=== PATIENT | female | born 1960 ===

== ENCOUNTER 2020-04-20 14:46 | Emergency (ER) | payer MEDICARE ==
[2020-04-20] MEDS ORDERED: SODIUM CHLORIDE 0.9% 1000 ML 1,000 ML IV ONE (15:17)
[2020-04-20 16:09] LABS: Hemoglobin 12.1 gm/dl (10.1-14.3); Mean Corpuscular HGB Conc 31 % (30-34); Mean Corpuscular Volume 95 fl (79-97); Platelet Count 103 K/mm3 (140-440); Red Blood Count 4.12 M/mm3 (3.65-5.03); Red Cell Distribution Width 18.9 % (13.2-15.2)
--- NOTE | 2020-04-20 16:19 | Cat Scan Report ---
NONENHANCED CT SCAN OF THE HEAD: INDICATION / CLINICAL INFORMATION: 59 years Female; fall elderly head neck trauma. TECHNIQUE: Routine CT head without contrast. All CT scans at this location are performed using CT dos e reduction for ALARA by means of automated exposure control. COMPARISON: CT scan of the head from 04/06/2020 FINDINGS: BRAIN / INTRACRANIAL CONTENTS: No intracranial sequela from the trauma; focal scalp hematoma in the l eft frontal region; no air-fluid level in the visualized portions of the paranasal sinuses. No acute hemorrhage, mass effect, midline shift, hydrocephalus, or acute, large territorial infarct. Periventricular low attenuation areas due to chronic small vessel disease: Mild right perisylvian at rophy CRANIOCERVICAL JUNCTION: No significant abnormality. ORBITS: No significant abnormality of visualized orbits. SINUSES / MASTOIDS: No significant abnormality of the visualized paranasal sinuses or mastoid air lacie ls. 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
--- NOTE | 2020-04-20 16:25 | Cat Scan Report ---
. CT facial bones wo con INDICATION / CLINICAL INFORMATION: 59 years Female; fall left jaw bruising. TECHNIQUE: Thin cut axial images obtained. Sagittal and coronal reconstructions performed. All CT scans at this location are performed using CT dose reduction for ALARA by means of automated exposure control. COMPARISON: None available. FINDINGS: No signs of acute bony trauma appreciated. There is significant temporomandibular joint disease bilaterally, as evidenced of near complete aysha ening of the condylar head of the mandible along with irregularity along the mandibular fossa regions bilaterally-findings a left are greater than right. Orbits and surrounding soft tissues are grossly normal. There may be minimal subcutaneous swelling ar ound the body of the mandible on the left. The patient is edentulous. Atherosclerotic disease is seen in the anterior circulation. IMPRESSION: 1. No signs of acute bony facial trauma appreciated. Signer Name: Douglas Potts MD, III Signed: 04/20/2020 4:21 PM Workstation Name: [id number]
[2020-04-20 16:29] LABS: Alanine Aminotransferase 15 units/L (7-56); Albumin 1.9 g/dL (3.9-5); Blood Urea Nitrogen 11 mg/dL (7-17); Calcium 7.4 mg/dL (8.4-10.2); Hemolysis Index 12
[2020-04-20 16:40] LABS: BUN/Creatinine Ratio 28
[2020-04-20 16:54] LABS: Bilirubin,Urine NEG (Negative); Blood,Urine NEG (Negative); Color,Urine Yellow (Yellow); Mucus,Urine FEW /HPF; Protein,Urine <15 mg/dL mg/dL (Negative)
--- NOTE | 2020-04-20 16:58 | Cat Scan Report ---
CT cervical spine wo con INDICATION / CLINICAL INFORMATION: 59 years Female; fall neck bruising. TECHNIQUE: Axial CT images of the cervical spine were obtained. Sagittal and coronal reformatted images were pr oduced. All CT scans at this location are performed using CT dose reduction for ALARA by means of aut omated exposure control. COMPARISON: The study is compared to the previous CT of 12/12/2019. FINDINGS: POST-SURGICAL CHANGES: None. ALIGNMENT: There is mild exaggeration of the cervical lordosis as well as curvature of the cervical s pine, convex toward the left. However, there is no significant spondylolisthesis involving the cervic al spine. VERTEBRAE: There is diffuse osteopenia. The motion and beam hardening degrade the image quality. Mcwilliams radha, there is no clear CT evidence of interval developing acute fracture involving cervical spine. Th ere are continued degenerative endplate changes involving the visualized T2 and T3 vertebral bodies. INTRAVERTEBRAL DISCS: There is continued mild to moderate left neural foraminal narrowing at C3-4 and on the right at C4-5. There appears to be moderate foraminal narrowing bilaterally at C5-6. The spon dylosis at this level also appears to efface the ventral subarachnoid space. There is moderate left f oraminal narrowing at C6-7. PARASPINAL SOFT TISSUES: There are scattered small foci of air projected within the neck soft tissues with most apparent to correspond with the vessels and may be iatrogenic related to IV access; correl ation would be needed, particularly regarding penetrating trauma.. There is no evidence of pneumothor ax involving visualized lung apices. ADDITIONAL FINDINGS: None. IMPRESSION: 1. There is no clear CT evidence of developing acute fracture involving the cervical spine. 2. There are continued multilevel degenerative changes involving the cervical spine. 3. There are scattered small foci of air projected within the visualized neck soft tissues which appe ar to correspond with vessels and may be iatrogenic related to IV access; correlation would be needed . Signer Name: Buddy Leach MD Signed: 04/20/2020 4:54 PM Workstation Name: [id number]
--- NOTE | 2020-04-20 17:28 | Emergency Department Report ---
ED Fall HPI - General Chief Complaint: Fall Stated Complaint: FALL Time Seen by Provider: 04/20/20 15:10 Source: patient, EMS, RN notes reviewed Mode of arrival: Stretcher Limitations: Altered Mental Status - History of Present Illness Initial Comments: Mrs. Agarwal is a 59 yo female with hx of congestive heart failure, COPD, GERD, anxiety, psychosis, CKD, bronchitis who preesents from [place] after possible fall. Bruising seen at left jaw. Patient thinks she may have tripped over someone. She is bedbound. She has hx of confusion at bedside. She resides at [facility]. MD Complaint: fall -: unknown Fall From: other (unknown) When Fall Occurred: unsure Fall Witnessed: no Place Fall Occurred: retirement/SNF Loss of Consciousness: none Prolonged Down Time?: unclear Location: head Severity: mild Context: other (unknown) Associated Symptoms: headache, other (Mild headache frontal unknown onset) - Related Data Previous Rx's Medication Instructions Recorded Last Taken Type cephALEXin [Keflex] 500 mg PO Q8HR 7 Days #21 cap 04/20/20 Unknown Rx Allergies Allergy/AdvReac Type Severity Reaction Status Date / Time clopidogrel [From Plavix] Allergy Unknown Verified 04/20/20 14:51 hydromorphone [From Dilaudid] Allergy Unknown Verified 04/20/20 14:51 phenobarbital Allergy Unknown Verified 04/20/20 14:51 ED Review of Systems ROS: Stated complaint: FALL Other details as noted in HPI Comment: All other systems reviewed and negative Constitutional: denies: fever, malaise Respiratory: denies: cough, shortness of breath Gastrointestinal: denies: abdominal pain, nausea, vomiting Neurological: headache. denies: weakness, numbness, paresthesias ED Past Medical Hx - Past Medical History Previous Medical History?: Yes Hx Congestive Heart Failure: Yes Hx GERD: Yes Hx Renal Disease: Yes Hx Psychiatric Treatment: (anxiety, psychosis) Hx COPD: Yes Additional medical history: Angina Pectoris, Bronchitis, U.T.I - Medications Home Medications: Home Medications Medication Instructions Recorded Confirmed Last Taken Type cephALEXin [Keflex] 500 mg PO Q8HR 7 Days #21 cap 04/20/20 Unknown Rx ED Physical Exam - General Limitations: Altered Mental Status General appearance: alert, in no apparent distress - Head Head exam: Present: normocephalic, other (large bruise left lateral jaw, left ne ck) - Eye Eye exam: Present: normal appearance - ENT ENT exam: Present: mucous membranes moist - Neck Neck exam: Present: normal inspection, full ROM - Respiratory Respiratory exam: Present: normal lung sounds bilaterally. Absent: respiratory distress, wheezes, stridor - Cardiovascular Cardiovascular Exam: Present: regular rate, normal rhythm. Absent: systolic murmur, diastolic murmur, rubs, gallop - GI/Abdominal GI/Abdominal exam: Present: soft, normal bowel sounds. Absent: distended, tenderness, guarding, rebound - Extremities Exam Extremities exam: Present: normal inspection - Neurological Exam Neurological exam: Present: alert, other (oriented to name) - Psychiatric Psychiatric exam: Present: depressed, flat affect - Skin Skin exam: Present: warm, dry, intact, ecchymosis. Absent: rash ED Course Vital Signs 04/20/20 04/20/20 04/20/20 14:57 14:58 15:00 Temperature 97.6 F Pulse Rate 68 Respiratory 20 Rate Blood Pressure 85/44 Blood Pressure 84/37 [Right] O2 Sat by Pulse 97 98 Oximetry 04/20/20 04/20/20 04/20/20 15:16 15:30 15:42 Temperature Pulse Rate 65 63 Respiratory 18 18 18 Rate Blood Pressure 85/44 89/49 Blood Pressure [Right] O2 Sat by Pulse 98 98 Oximetry 04/20/20 04/20/20 04/20/20 16:02 16:16 16:30 Temperature Pulse Rate 64 66 65 Respiratory 20 18 18 Rate Blood Pressure 85/44 85/44 105/54 Blood Pressure [Right] O2 Sat by Pulse 99 100 Oximetry 04/20/20 04/20/20 16:46 17:00 Temperature Pulse Rate 64 65 Respiratory 16 17 Rate Blood Pressure 105/54 109/59 Blood Pressure [Right] O2 Sat by Pulse 98 98 Oximetry ED Medical Decision Making - Lab Data Result diagrams: 04/20/20 15:29 04/20/20 15:29 Laboratory Results - last 24 hr 04/20/20 04/20/20 04/20/20 15:29 15:29 16:19 WBC 5.8 RBC 4.12 Hgb 12.1 Hct 39.0 MCV 95 MCH 30 MCHC 31 RDW 18.9 H Plt Count 103 L Sodium 142 Potassium 4.0 Chloride 106.6 Carbon Dioxide 25 Anion Gap 14 BUN 11 Creatinine 0.4 L Estimated GFR > 60 BUN/Creatinine Ratio 28 Glucose 105 H Calcium 7.4 L Total Bilirubin 0.30 AST 14 ALT 15 Alkaline Phosphatase 78 Total Protein 4.2 L Albumin 1.9 L Albumin/Globulin Ratio 0.8 Urine Color Yellow Urine Turbidity Slightly-cloudy Urine pH 6.0 Ur Specific Gantt 1.013 Urine Protein <15 mg/dl Urine Glucose (UA) Neg Urine Ketones Neg Urine Blood Neg Urine Nitrite Neg Urine Bilirubin Neg Urine Urobilinogen 2.0 Ur Leukocyte Esterase Tr Urine WBC (Auto) 39.0 H Urine RBC (Auto) 2.0 U Epithel Cells (Auto) < 1.0 Urine Mucus Few - Radiology Data Radiology results: report reviewed CT head without contrast: No intracranial sequela from trauma, focal scalp hematoma in the left frontal region CT facial bones without contrast: No signs of acute bony facial trauma CT cervical spine: No acute fracture, multilevel degenerative changes seen on previous - Medical Decision Making 1. Fall head trauma: CT face/c-spine/head without severe traumatic injury, dx: Minor head trauma with scalp hematoma facial contusion 2. Patient presented with hypotension without signs of sepsis CBC within normal limits. Patient does have evidence of UTI. No signs of Sirs. I have prescribed cephalexin. Iatrogenic hypotension due to medication vs hypovolemia. After IV fluid therap an appropriate sized cuff, patient is now normotensive. Critical care attestation.: If time is entered above; I have spent that time in minutes in the direct care of this critically ill patient, excluding procedure time. ED Disposition Clinical Impression: Urinary tract infection, Fall, Minor head trauma, Facial contusion Disposition: [id number] ANOTHER TYPE HLTHCARE Is pt being admited?: No Does the pt Need Aspirin: No Condition: Stable Instructions: Urinary Tract Infection in Women (ED), Minor Head Injury (ED) Prescriptions: cephALEXin [Keflex] 500 mg PO Q8HR 7 Days #21 cap
[2020-04-20] MEDS ORDERED: cephALEXin 500 MG CAP PO ONE (17:38)
[2020-04-20 21:55] VITALS: BP 111/56
== END 2020-04-20 21:55 | disposition other institution (70) ==
LOC: ED 14:46
DX: S00.83XA Contusion of other part of head, initial encounter (principal); N39.0 Urinary tract infection, site not specified; R51 Headache; I50.9 Heart failure, unspecified; K21.9 Gastro-esophageal reflux disease without esophagitis; F41.9 Anxiety disorder, unspecified; J44.9 Chronic obstructive pulmonary disease, unspecified; Z79.899 Other long term (current) drug therapy; Z88.8 Allergy status to other drugs, medicaments and biological substances; W18.30XA Fall on same level, unspecified, initial encounter; Y93.89 Activity, other specified; Y92.89 Other specified places as the place of occurrence of the external cause; Y99.8 Other external cause status
CPT/HCPCS: 36415; 70450; 70486; 72125; 80053; 81001; 85027; 87076; 87086; 87186; 96360

== ENCOUNTER 2020-07-05 20:23 | Inpatient (IN) | payer OTHER, MEDICARE ==
[2020-07-05] MEDS ORDERED: KETAMINE 500 MG/5 ML VIAL MDV ONE (21:22)
[2020-07-05] MEDS ORDERED: ROCURONIUM 50 MG/5 ML INJ IV ONE ×2 (21:23→22:08)
[2020-07-05] MEDS ORDERED: CEFEPIME/NS 2 GM/100 ML 0 GM/0 ML BAG IV ONE (21:40)
[2020-07-05] MEDS ORDERED: SODIUM CHLORIDE 0.9% 1000 ML 1,000 ML ONE (21:40)
[2020-07-05] MEDS ORDERED: KETAMINE 500 MG/5 ML VIAL MDV IV ONE (22:08)
[2020-07-05] MEDS ORDERED: SODIUM CHLORIDE 0.9% 1000 ML 2,500 ML IV ONE (22:08)
[2020-07-05] MEDS ORDERED: LIP THERAPY VASELINE TP PRN (22:08)
[2020-07-05] MEDS ORDERED: cefTRIAXone/NS 1 GM/50 ML 1 GM/50 ML BAG IV ONE (22:08)
[2020-07-05] MEDS ORDERED: dexAMETHasone 4 MG/ML VIAL IV ONE (22:08)
[2020-07-05] MEDS ORDERED: VANCOMYCIN/NS 1 GM/250 ML 1 GM/250 ML BAG IV ONE (22:08)
[2020-07-05] MEDS ORDERED: MINERAL OIL/PETROLATUM, WHITE OPHTH OINT 3.5 GM OU PRN (22:08)
[2020-07-05] MEDS ORDERED: fentaNYL 100 MCG/2 ML INJ IV PRN (22:08)
--- NOTE | 2020-07-05 22:14 | Emergency Department Report ---
ED General Adult HPI - General Chief complaint: Altered Mental Status Stated complaint: LETHARGIC/FEVER PUI?: Yes Time Seen by Provider: 07/05/20 21:09 Source: EMS ( EMS documentation not available at time of chart dictation ), RN notes reviewed, old records reviewed Mode of arrival: Stretcher Limitations: Altered Mental Status, Physical Limitation - History of Present Illness Initial comments: The patient was evaluated in the emergency department for symptoms described in the history of present illness. He/she was evaluated in the context of the global COVID-19 pandemic, which necessitated consideration that the patient might be at risk for infection with the virus that causes COVID-19. Institutional protocols and algorithms that pertain to the evaluation of patients at risk for COVID-19 are in a state of rapid change based on information released by regulatory bodies including the CDC and federal and state organizations. These policies and algorithms were followed during the patient's care in the emergency department. Please note that these policies, procedures and recommendations changed on a rapid basis. The patient is a 59-year-old female, who is not known to myself, presenting to the emergency room from a local care home, unclear what her past medical history is. Apparently, she was sent to the emergency room because of weakness and altered mental status and possible fever. Her last known well time is not explicitly known. The patient is altered, and is not able to describe the qualitative nature of her symptoms, exacerbating factors, relieving factors, or aggravating factors. The patient is not accompanied by friends or family at this time for additional information or collateral information. Apparently, the patient was markedly hypoxic in the field, saturating in the mid 60s. Upon my initial evaluation, patient is on a nonrebreather, groaning incomprehensibly, with dry mucous membranes, moving 4 extremities. Blood pressure in the 80s/90s. Not able to protect her airway, does not have a gag reflex. Not a suitable candidate for BiPAP, or high flow nasal cannula given al teration in mental status. intermediate paperwork is quickly reviewed, no DNR, DNI is identified. Patient is therefore emergently intubated by myself for airway protection, using rapid sequence induction techniques, and video laryngoscopy. Post intubation, blood pressure in the 80s/90s. Patient has very poor IV access peripherally, I myself was able to obtain a right sided external jugular IV, 20- gauge, which assisted with RSI technique. However, given alteration in mental status, hypotension, patient emergently administratively consented by myself for sterile central line placement. Using ultrasound guidance, a triple-lumen central line is inserted into the left internal jugular system, using maximum barrier precautions and sterile technique. Patient currently intubated, sedated, laboratory studies, CT scan brain, chest are pending at this time. Medicated empirically with steroids, ceftriaxone, vancomycin. IV fluids also ordered. Please note that the patient will be placed on Covid pathway, therefore, she was placed on isolation, and during the entire history and physical examination, I had on complete personal protective equipment. -: unknown - Related Data Previous Rx's Medication Instructions Recorded Last Taken Type cephALEXin [Keflex] 500 mg PO Q8HR 7 Days #21 cap 04/20/20 Unknown Rx Allergies Allergy/AdvReac Type Severity Reaction Status Date / Time clopidogrel [From Plavix] Allergy Unknown Verified 04/20/20 14:51 hydromorphone [From Dilaudid] Allergy Unknown Verified 04/20/20 14:51 phenobarbital Allergy Unknown Verified 04/20/20 14:51 ED Review of Systems ROS: Stated complaint: LETHARGIC/FEVER Other details as noted in HPI Comment: Unobtainable due to pts medical conditions ED Past Medical Hx - Past Medical History Hx Congestive Heart Failure: Yes Hx GERD: Yes Hx Renal Disease: Yes Hx Psychiatric Treatment: (anxiety, psychosis) Hx COPD: Yes Additional medical history: Angina Pectoris, Bronchitis, U.T.I - Social History Smoking Status: Unknown if ever smoked - Medications Home Medications: Home Medications Medication Instructions Recorded Confirmed Last Taken Type cephALEXin [Keflex] 500 mg PO Q8HR 7 Days #21 cap 04/20/20 Unknown Rx ED Physical Exam - General Limitations: Altered Mental Status, Physical Limitation General appearance: obtunded - Head Head exam: Present: atraumatic, normocephalic - Eye Eye exam: Present: normal appearance - ENT ENT exam: Present: mucous membranes dry - Neck Neck exam: Present: normal inspection, full ROM. Absent: tenderness, meningismus - Respiratory Respiratory exam: Present: other (Patient breathing agonal he). Absent: respiratory distress, chest wall tenderness - Cardiovascular Cardiovascular Exam: Present: regular rate, normal rhythm, normal heart sounds. Absent: bradycardia, tachycardia, irregular rhythm, systolic murmur, diastolic murmur, rubs, gallop - GI/Abdominal GI/Abdominal exam: Present: soft. Absent: distended, tenderness, guarding, rebound, rigid, pulsatile mass - Rectal Rectal exam: Present: normal inspection - External exam: Present: normal external exam - Extremities Exam Extremities exam: Present: normal inspection, pedal edema, other (1+ femoral pulses noted bilaterally. 1+ radial pulses noted bilaterally.) - Back Exam Back exam: Present: normal inspection. Absent: tenderness, CVA tenderness (R), CVA tenderness (L), paraspinal tenderness, vertebral tenderness - Neurological Exam Neurological exam: Present: altered, other (Patient groaning, eyes open spontaneously, does not respond to command, localizes painful stimuli) - Skin Skin exam: Present: warm, dry, intact, normal color. Absent: rash ED Course Vital Signs 07/05/20 07/05/20 07/05/20 21:05 21:36 23:46 Temperature 98.3 F Pulse Rate 82 81 81 Respiratory 20 Rate Blood Pressure 88/36 164/87 O2 Sat by Pulse 100 100 100 Oximetry - Reevaluation(s) Reevaluation #1: 07/05/20 23:01 Differential diagnosis, including but not limited to: COVID-19, pneumonia, urinary tract infection, bacteremia, viremia, pulmonary embolism Assessment and plan: 59-year-old female with respiratory failure and hypoxia. This is likely COVID-19. Maintain barrier precautions. Start fluids, antibiotics, steroids. Please courtesy consult for infectious disease, we will defer to inpatient team to follow this up. Discussed patient's case with critical care physician on-call, Dr. Sanders, who agrees with placement in the intensive care unit, assuming no emergent condition is identified that would require transfer to higher level of care. Continue antibiotics, lung protective ventilator strategy, steroids, fluids, and supportive care. Prognosis is guarded at this time. We will discuss with the hospital physician once initial diagnostics have resulted Reevaluation #2: 07/06/20 02:31 CT scan of the brain shows small left-sided parietal bleed. The CT scan images are reviewed by our attending neurosurgeon, Dr. Arturo Sow He recommends that his group can follow in consultation. Recommends maintaining systolic blood pressure less than 150 mmHg, avoidance of antiplatelet/anticoagulants, repeat head CT at 8:[address] scan of the chest is reviewed and appreciated, edema versus pneumonia with no obvious pulmonary embolism. , Hospital physician, Dr. Arturo Scott to admit - Central Line Placement Left IJ Consent Obtained: emergent situation Time Out Performed: Yes Patient Placed on Monitor/Pulse Ox: Yes MD Prep: mask, gown, gloves Central Line Prep: Chlorhexidine scrub Local Anesthesia Used: Lidocaine 1% Amount of Anesthesia Used (mls): 5 Ultrasound Used for Placement: Yes Central Line Lumen Inserted: triple Bloods Obtained for Lab: Yes Central Line Position: good blood return, all ports aspirated, flus, sutured in place with 2-0 Dressing Applied: Tegaderm Post Procedure X-Ray: tip of catheter in good p Patient Tolerated Procedure: well Complications: none - EJ/Peripheral Line Neck R Time Out Performed: Yes Indications: nurses unable to establis Skin Cleansed in Sterile Fashion: Yes Size: 20 Dressing Placed: Tegaderm Patient Tolerated Procedure: well - Intubation Time Out Performed: Yes Sedative: Ketamine Mg Given: 100 Paralytic: Rocuronium Mg Given: 100 Laryngoscope: fiberoptic video scope Size: 3 Assist Device Used: fiberoptic device ET Tube Size: 7.5 Tube Secured Depth (cm): 22 Tube Secured Location: teeth Tube Placement Confirmation: visualized tube passing t, equal breath sounds bilat, no breath sounds over epi, confirmation by capnometr Patient Tolerated Procedure: well Intubation Complications: none Additional Comments: Patient placed on phototypesetting equipment monitor, pulse oximeter, nasal cannula oxygen at 15 L/min. She receives [id number] ventilation. Induced with 100 mg of ketam ine, paralyzed with 100 mg of rocuronium. Video laryngoscopy performed, vocal cords are easily identified, and a 7.5 endotracheal tube was gently inserted through the trachea, ship pilot balloon was inflated, there is appropriate end-tidal capnography color change, tube is secured, and attached to ventilator. Patient tolerated this procedure well. She did not desaturate. ED Medical Decision Making - Lab Data Result diagrams: 07/05/20 23:42 07/05/20 23:06 Vital Signs 07/05/20 07/05/20 07/05/20 21:05 21:36 23:46 Temperature 98.3 F Pulse Rate 82 81 81 Respiratory 20 Rate Blood Pressure 88/36 164/87 O2 Sat by Pulse 100 100 100 Oximetry Lab Results 07/05/20 07/05/20 07/05/20 Range/Units 22:55 23:06 Unknown PT 15.2 H (12.2-14.9) Sec. INR 1.18 H (0.87-1.13) APTT 30.8 (24.2-36.6) Sec. D-Dimer 1298.20 H (0-234) ng/mlDDU ABG pH 7.418 (7.350-7.450) pH Units ABG pCO2 49.7 mm Hg ABG pO2 227.3 H (80.0-90.0) mm Hg ABG HCO3 31.3 H (20.0-26.0) mmol/L ABG O2 Saturation 99.3 H (95.0-99.0) % ABG O2 Content 16.9 (0.0-44) ABG Base Excess 5.8 H (-2.0-3.0) mmol/L ABG Hemoglobin 12.0 (12.0-16.0) gm/dl ABG Carboxyhemoglobin 1.6 (0.0-5.0) % ABG Methemoglobin 0.5 (0.0-1.5) % Oxyhemoglobin 97.3 (95.0-99.0) % FiO2 100 % Urine Color Mildred (Yellow) Urine Turbidity Clear (Clear) Urine pH 5.0 (5.0-7.0) Ur Specific Conley 1.025 (1.003-1.030) Urine Protein 30 mg/dl (Negative) mg/dL Urine Glucose (UA) Neg (Negative) mg/dL Urine Ketones Neg (Negative) mg/dL Urine Blood Neg (Negative) Urine Nitrite Neg (Negative) Urine Bilirubin Neg (Negative) Urine Urobilinogen 4.0 (<2.0) mg/dL Ur Leukocyte Esterase Neg (Negative) Urine WBC (Auto) 2.0 (0.0-6.0) /HPF Urine RBC (Auto) 1.0 (0.0-6.0) /HPF U Epithel Cells (Auto) 1.0 (0-13.0) /HPF Hyaline Casts 16 /LPF Urine Mucus Few /HPF Lab Results 07/05/20 07/05/20 07/05/20 Range/Units 22:55 23:06 23:06 WBC (4.5-11.0) K/mm3 RBC (3.65-5.03) M/mm3 Hgb (10.1-14.3) gm/dl Hct (30.3-42.9) % MCV (79-97) fl MCH (28-32) pg MCHC (30-34) % RDW (13.2-15.2) % Plt Count (140-440) K/mm3 Hockley % (Auto) (0.0-7.3) % Eos % (Auto) (0.0-4.3) % Hockley # (Auto) (0.0-0.8) K/mm3 Eos # (Auto) (0.0-0.4) K/mm3 Baso # (Auto) (0.0-0.1) K/mm3 Seg Neutrophils % (40.0-70.0) % Seg Neutrophils # (1.8-7.7) K/mm3 PT 15.2 H (12.2-14.9) Sec. INR 1.18 H (0.87-1.13) APTT 30.8 (24.2-36.6) Sec. D-Dimer 1298.20 H (0-234) ng/mlDDU ABG pH 7.418 (7.350-7.450) pH Units ABG pCO2 49.7 mm Hg ABG pO2 227.3 H (80.0-90.0) mm Hg ABG HCO3 31.3 H (20.0-26.0) mmol/L ABG O2 Saturation 99.3 H (95.0-99.0) % ABG O2 Content 16.9 (0.0-44) ABG Base Excess 5.8 H (-2.0-3.0) mmol/L ABG Hemoglobin 12.0 (12.0-16.0) gm/dl ABG Carboxyhemoglobin 1.6 (0.0-5.0) % ABG Methemoglobin 0.5 (0.0-1.5) % Oxyhemoglobin 97.3 (95.0-99.0) % FiO2 100 % Sodium 145 (137-145) mmol/L Potassium 4.0 (3.6-5.0) mmol/L Chloride 106.3 (98-107) mmol/L Carbon Dioxide 29 (22-30) mmol/L Anion Gap 14 mmol/L BUN 31 H (7-17) mg/dL Creatinine 0.6 (0.6-1.2) mg/dL Estimated GFR > 60 ml/min BUN/Creatinine Ratio 52 % Glucose 86 (65-100) mg/dL Lactic Acid (0.7-2.0) mmol/L Calcium 7.7 L (8.4-10.2) mg/dL Magnesium 2.00 (1.7-2.3) mg/dL Total Bilirubin 0.90 (0.1-1.2) mg/dL AST 14 (5-40) units/L ALT 13 (7-56) units/L Alkaline Phosphatase 92 (35-129) units/L Total Creatine Kinase 55 (30-135) units/L Troponin T 0.032 H (0.00-0.029) ng/mL Total Protein 5.2 L (6.3-8.2) g/dL Albumin 2.6 L (3.9-5) g/dL Albumin/Globulin Ratio 1.0 % Urine Color (Yellow) Urine Turbidity (Clear) Urine pH (5.0-7.0) Ur Specific Conley (1.003-1.030) Urine Protein (Negative) mg/dL Urine Glucose (UA) (Negative) mg/dL Urine Ketones (Negative) mg/dL Urine Blood (Negative) Urine Nitrite (Negative) Urine Bilirubin (Negative) Urine Urobilinogen (<2.0) mg/dL Ur Leukocyte Esterase (Negative) Urine WBC (Auto) (0.0-6.0) /HPF Urine RBC (Auto) (0.0-6.0) /HPF U Epithel Cells (Auto) (0-13.0) /HPF Hyaline Casts /LPF Urine Mucus /HPF Blood Type 07/05/20 07/05/20 07/05/20 Range/Units 23:06 23:10 23:42 WBC 6.3 (4.5-11.0) K/mm3 RBC 3.87 (3.65-5.03) M/mm3 Hgb 11.7 (10.1-14.3) gm/dl Hct 38.0 (30.3-42.9) % MCV 98 H (79-97) fl MCH 30 (28-32) pg MCHC 31 (30-34) % RDW 19.8 H (13.2-15.2) % Plt Count 156 (140-440) K/mm3 Hockley % (Auto) 15.9 H (0.0-7.3) % Eos % (Auto) 0.4 (0.0-4.3) % Hockley # (Auto) 1.0 H (0.0-0.8) K/mm3 Eos # (Auto) 0.0 (0.0-0.4) K/mm3 Baso # (Auto) 0.0 (0.0-0.1) K/mm3 Seg Neutrophils % 69.3 (40.0-70.0) % Seg Neutrophils # 4.5 (1.8-7.7) K/mm3 PT (12.2-14.9) Sec. INR (0.87-1.13) APTT (24.2-36.6) Sec. D-Dimer (0-234) ng/mlDDU ABG pH (7.350-7.450) pH Units ABG pCO2 mm Hg ABG pO2 (80.0-90.0) mm Hg ABG HCO3 (20.0-26.0) mmol/L ABG O2 Saturation (95.0-99.0) % ABG O2 Content (0.0-44) ABG Base Excess (-2.0-3.0) mmol/L ABG Hemoglobin (12.0-16.0) gm/dl ABG Carboxyhemoglobin (0.0-5.0) % ABG Methemoglobin (0.0-1.5) % Oxyhemoglobin (95.0-99.0) % FiO2 % Sodium (137-145) mmol/L Potassium (3.6-5.0) mmol/L Chloride (98-107) mmol/L Carbon Dioxide (22-30) mmol/L Anion Gap mmol/L BUN (7-17) mg/dL Creatinine (0.6-1.2) mg/dL Estimated GFR ml/min BUN/Creatinine Ratio % Glucose (65-100) mg/dL Lactic Acid 0.80 (0.7-2.0) mmol/L Calcium (8.4-10.2) mg/dL Magnesium (1.7-2.3) mg/dL Total Bilirubin (0.1-1.2) mg/dL AST (5-40) units/L ALT (7-56) units/L Alkaline Phosphatase (35-129) units/L Total Creatine Kinase (30-135) units/L Troponin T (0.00-0.029) ng/mL Total Protein (6.3-8.2) g/dL Albumin (3.9-5) g/dL Albumin/Globulin Ratio % Urine Color (Yellow) Urine Turbidity (Clear) Urine pH (5.0-7.0) Ur Specific Conley (1.003-1.030) Urine Protein (Negative) mg/dL Urine Glucose (UA) (Negative) mg/dL Urine Ketones (Negative) mg/dL Urine Blood (Negative) Urine Nitrite (Negative) Urine Bilirubin (Negative) Urine Urobilinogen (<2.0) mg/dL Ur Leukocyte Esterase (Negative) Urine WBC (Auto) (0.0-6.0) /HPF Urine RBC (Auto) (0.0-6.0) /HPF U Epithel Cells (Auto) (0-13.0) /HPF Hyaline Casts /LPF Urine Mucus /HPF Blood Type O POSITIVE 07/05/20 Range/Units Unknown WBC (4.5-11.0) K/mm3 RBC (3.65-5.03) M/mm3 Hgb (10.1-14.3) gm/dl Hct (30.3-42.9) % MCV (79-97) fl MCH (28-32) pg MCHC (30-34) % RDW (13.2-15.2) % Plt Count (140-440) K/mm3 Hockley % (Auto) (0.0-7.3) % Eos % (Auto) (0.0-4.3) % [place]ockley # (Auto) (0.0-0.8) K/mm3 Eos # (Auto) (0.0-0.4) K/mm3 Baso # (Auto) (0.0-0.1) K/mm3 Seg Neutrophils % (40.0-70.0) % Seg Neutrophils # (1.8-7.7) K/mm3 PT (12.2-14.9) Sec. INR (0.87-1.13) APTT (24.2-36.6) Sec. D-Dimer (0-234) ng/mlDDU ABG pH (7.350-7.450) pH Units ABG pCO2 mm Hg ABG pO2 (80.0-90.0) mm Hg ABG HCO3 (20.0-26.0) mmol/L ABG O2 Saturation (95.0-99.0) % ABG O2 Content (0.0-44) ABG Base Excess (-2.0-3.0) mmol/L ABG Hemoglobin (12.0-16.0) gm/dl ABG Carboxyhemoglobin (0.0-5.0) % ABG Methemoglobin (0.0-1.5) % Oxyhemoglobin (95.0-99.0) % FiO2 % Sodium (137-145) mmol/L Potassium (3.6-5.0) mmol/L Chloride (98-107) mmol/L Carbon Dioxide (22-30) mmol/L Anion Gap mmol/L BUN (7-17) mg/dL Creatinine (0.6-1.2) mg/dL Estimated GFR ml/min BUN/Creatinine Ratio % Glucose (65-100) mg/dL Lactic Acid (0.7-2.0) mmol/L Calcium (8.4-10.2) mg/dL Magnesium (1.7-2.3) mg/dL Total Bilirubin (0.1-1.2) mg/dL AST (5-40) units/L ALT (7-56) units/L Alkaline Phosphatase (35-129) units/L Total Creatine Kinase (30-135) units/L Troponin T (0.00-0.029) ng/mL Total Protein (6.3-8.2) g/dL Albumin (3.9-5) g/dL Albumin/Globulin Ratio % Urine Color Mildred (Yellow) Urine Turbidity Clear (Clear) Urine pH 5.0 (5.0-7.0) Ur Specific Conley 1.025 (1.003-1.030) Urine Protein 30 mg/dl (Negative) mg/dL Urine Glucose (UA) Neg (Negative) mg/dL Urine Ketones Neg (Negative) mg/dL Urine Blood Neg (Negative) Urine Nitrite Neg (Negative) Urine Bilirubin Neg (Negative) Urine Urobilinogen 4.0 (<2.0) mg/dL Ur Leukocyte Esterase Neg (Negative) Urine WBC (Auto) 2.0 (0.0-6.0) /HPF Urine RBC (Auto) 1.0 (0.0-6.0) /HPF U Epithel Cells (Auto) 1.0 (0-13.0) /HPF Hyaline Casts 16 /LPF Urine Mucus Few /HPF Blood Type Vital Signs 07/05/20 07/05/20 07/05/20 21:05 21:36 23:46 Temperature 98.3 F Pulse Rate 82 81 81 Respiratory 20 Rate Blood Pressure 88/36 164/87 O2 Sat by Pulse 100 100 100 Oximetry - EKG Data -: EKG Interpreted by Ms EKG shows normal: sinus rhythm Rate: normal - EKG Data When compared to previous EKG there are: previous EKG unavailable 07/06/20 00:07 No prior EKGs available for comparison. Sinus rhythm, 79 bpm, first-degree AV block, MT interval 201 ms, QTC 515 ms, low voltage, and motion artifact. Borderline left bundle branch block. Abnormal EKG. Not a STEMI. No prior for comparison. - Radiology Data Radiology results: pending, report reviewed, image reviewed Print Report Referring Physician: ZAKI GLASS Patient Name: LEX RAO Date of : 1960 Sex: Female Report Date: 2020-07-05 Report Status: Finalized Findings [address] [address] XRay Report Signed Patient: LEX RAO MR#: [id number] 60 : 1960 Acct:[id number] Age/Sex: 59 / F ADM Date: 07/05/20 Loc: ED Attending Dr: Ordering Physician: ZAKI GLASS MD Date of Service: 07/05/20 Procedure(s): XR chest 1V ap Accession Number(s): [id number] cc: ZAKI GLASS MD Fluoro Time In Minutes: CHEST 1 VIEW 07/05/2020 10:34 PM INDICATION / CLINICAL INFORMATION: ET tube placement. COMPARISON: None available. FINDINGS: SUPPORT DEVICES: The tip of the ET tube appears to be about 3 cm above the opal. Left IJ central venous catheter is present with the tip appearing to project over the superior margin of the SVC. HEART / MEDIASTINUM: No significant abnormality. LUNGS / PLEURA: Mild bibasilar subsegmental atelectasis. No pneumothorax. ADDITIONAL FINDINGS: No significant additional findings. IMPRESSION: 1. Endotracheal tube in expected position. Signer Name: Francesco Dorsey MD Signed: 07/05/2020 10:43 PM Workstation Name: [id number] Transcribed By: CECILY Dictated By: Francesco Dorsey MD Electronically Authenticated By: Francesco Dorsey MD Signed Date/Time: 07/05/202242 DD/ 42 TD/TT: Print Report Referring Physician: ZAKI GLASS Patient Name: LEX RAO Date of : 1960 Sex: Female Report Date: 2020-07-06 Report Status: [place] [address] Cat Scan Report Signed Patient: LEX RAO MR#: [id number] 60 : 1960 Acct:[id number] Age/Sex: 59 / F ADM Date: 07/05/20 Loc: ED Attending Dr: Ordering Physician: ZAKI GLASS MD Date of Service: 07/05/20 Procedure(s): CT head/brain wo con Accession Number(s): [id number] cc: ZAKI GLASS MD CT head/brain wo con INDICATION: Altered Mental Status. TECHNIQUE: Routine CT head without contrast. All CT scans at this location are performed using CT dose reduction for ALARA by means of automated exposure control. COMPARISON: Head CT on 04/20/2020 FINDINGS: BRAIN / INTRACRANIAL CONTENTS: There is a small 1 cm focus of acute hemorrhage in the left parietal subcortical region. There is no associated adverse mass effect or significant brain edema. There is no other acute hemorrhage. Ventricular and cisternal size remains normal for age. ORBITS: No significant abnormality of visualized orbits. SINUSES / MASTOIDS: No significant abnormality of visualized sinuses and mastoid air cells. ADDITIONAL FINDINGS: None. IMPRESSION: 1. Small 1 cm parenchymal hemorrhage in the left parietal juxtacortical region. Signer Name: Francesco Dorsey MD Signed: 07/06/2020 1:59 AM Workstation Name: [id number] Transcribed By: CECILY Dictated By: Francesco Dorsey MD Electronically Authenticated By: Francesco Dorsey MD Signed Date/Time: 07/06/20158 Print Report Referring Physician: ZAKI GLASS Patient Name: LEX RAO Date of : 1960 Sex: Female Report Date: 2020-07-06 Report Status: Finalized Findings [facility] [address] [place] [address] Cat Scan Report Signed Patient: LEX RAO MR#: [id number] 60 : 1960 Acct:[id number] Age/Sex: 59 / F ADM Date: 07/05/20 Loc: ED Attending Dr: Ordering Physician: ZAKI GLASS MD Date of Service: 07/05/20 Procedure(s): CT angio chest Accession Number(s): [id number] cc: ZAKI GLASS MD CTA CHEST WITH IV CONTRAST INDICATION: Respiratory failure. TECHNIQUE: Axial CT images were obtained through the chest after injection of 100 mL Omnipaque 350 IV contrast. 3 plane MIP reconstructions were produced. All CT scans at this location are performed using CT dose reduction for ALARA by means of automated exposure control. COMPARISON: None available. FINDINGS: Pulmonary Arteries: No pulmonary emboli. Lungs: There are trace bilateral pleural effusions. There is mild diffuse interlobular septal thickening suggesting pulmonary edema. There is bibasilar consolidation. Trachea and Bronchi: No significant abnormality. Heart and Pericardium: Mild coronary atherosclerotic calcifications. Vasculature: Atherosclerotic but not aneurysmal thoracic aorta. Lymphatics: No lymphadenopathy. Additional Findings: None. Upper Abdomen: No acute findings. Skeletal Structures: Posterior thoracic spine fixation hardware and intervertebral bone graft present. IMPRESSION: 1. No CT evidence for pulmonary embolism. 2. Bibasilar consolidation with associated tiny bilateral pleural effusions that could be due to pneumonia, aspiration, or atelectasis. 3. Additional diffuse interlobular septal thickening suggest a component of interstitial pulmonary edema. Signer Name: Francesco Dorsey MD Signed: 07/06/2020 2:02 AM Workstation Name: [id number] Transcribed By: CECILY Dictated By: Francesco Dorsey MD Electronically Authenticated By: Francesco Dorsey MD Signed Date/Ti me: 07/06/20201 DD/ 8 TD/TT: Critical Care Time: Yes Critical care time in (mins) excluding proc time.: 65 Critical care attestation.: If time is entered above; I have spent that time in minutes in the direct care of this critically ill patient, excluding procedure time. ED Disposition Clinical Impression: Acute encephalopathy, Suspected 2019 novel coronavirus infection, Intracranial hemorrhage Acute respiratory failure Qualifiers: Respiratory failure complication: hypoxia Qualified Code(s): J96.01 - Acute respiratory failure with hypoxia Disposition: OP ADMIT IP TO THIS HOSP Is pt being admited?: Yes Does the pt Need Aspirin: No Condition: Critical Referrals: RBANDON DUMONT MD [Primary Care Provider] - 3-5 Days
--- NOTE | 2020-07-05 22:48 | XRay Report ---
CHEST 1 VIEW 07/05/2020 10:34 PM INDICATION / CLINICAL INFORMATION: ET tube placement. COMPARISON: None available. FINDINGS: SUPPORT DEVICES: The tip of the ET tube appears to be about 3 cm above the opal. Left IJ central ve nous catheter is present with the tip appearing to project over the superior margin of the SVC. HEART / MEDIASTINUM: No significant abnormality. LUNGS / PLEURA: Mild bibasilar subsegmental atelectasis. No pneumothorax. ADDITIONAL FINDINGS: No significant additional findings. IMPRESSION: 1. Endotracheal tube in expected position. Signer Name: Francesco Dorsey MD Signed: 07/05/2020 10:43 PM Workstation Name: [id number]
[2020-07-05] MEDS ORDERED: VANCOMYCIN 1,500 MG in SODIUM CHLORIDE 0.9% 500 ML 500 ML IV ONE (23:00)
[2020-07-05 23:14] LABS: ABG Base Excess 5.8 mmol/L (-2.0-3.0); ABG HCO3 31.3 mmol/L (20.0-26.0); ABG Methemoglobin 0.5 % (0.0-1.5); ABG Oxygen Saturation 99.3 % (95.0-99.0); ABG PCO2 49.7 mm Hg; ABG PH 7.418 pH Units (7.350-7.450); ABG PO2 227.3 mm Hg (80.0-90.0)
[2020-07-05 23:18] LABS: Bilirubin,Urine NEG (Negative); Blood,Urine NEG (Negative); Color,Urine Amber (Yellow); Hyaline Casts,Urine 16 /LPF; Mucus,Urine FEW /HPF
[2020-07-05 23:59] LABS: INR 1.18 (0.87-1.13)
[2020-07-06] LABS: Partial Thromboplastin Time 30.8 Sec. (24.2-36.6)
[2020-07-06 00:24] LABS: Hemoglobin 11.7 gm/dl (10.1-14.3); Mean Corpuscular HGB Conc 31 % (30-34); Mean Corpuscular Volume 98 fl (79-97); Platelet Count 156 K/mm3 (140-440); Red Blood Count 3.87 M/mm3 (3.65-5.03); Red Cell Distribution Width 19.8 % (13.2-15.2)
[2020-07-06 00:36] LABS: Basophils % (Auto) 0.6 % (0.0-1.8); Eosinophils % (Auto) 0.4 % (0.0-4.3); Lymphocytes # (Auto) 0.9 K/mm3 (1.2-5.4); Lymphocytes % (Auto) 13.8 % (13.4-35.0); Monocytes % (Auto) 15.9 % (0.0-7.3)
[2020-07-06 00:37] LABS: BUN/Creatinine Ratio 52; Blood Urea Nitrogen 31 mg/dL (7-17); Calcium 7.7 mg/dL (8.4-10.2)
[2020-07-06 00:38] LABS: Alanine Aminotransferase 13 units/L (7-56); Albumin 2.6 g/dL (3.9-5); Hemolysis Index 10
[2020-07-06] MEDS: fentaNYL DRIP Premix 2,000 MCG/100 ML BAG IV SCH ×2 (01:41→09:06)
--- NOTE | 2020-07-06 02:04 | Cat Scan Report ---
CT head/brain wo con INDICATION: Altered Mental Status. TECHNIQUE: Routine CT head without contrast. All CT scans at this location are performed using CT dos e reduction for ALARA by means of automated exposure control. COMPARISON: Head CT on 04/20/2020 FINDINGS: BRAIN / INTRACRANIAL CONTENTS: There is a small 1 cm focus of acute hemorrhage in the left parietal s ubcortical region. There is no associated adverse mass effect or significant brain edema. There is no other acute hemorrhage. Ventricular and cisternal size remains normal for age. ORBITS: No significant abnormality of visualized orbits. SINUSES / MASTOIDS: No significant abnormality of visualized sinuses and mastoid air cells. ADDITIONAL FINDINGS: None. IMPRESSION: 1. Small 1 cm parenchymal hemorrhage in the left parietal juxtacortical region. Signer Name: Francesco Dorsey MD Signed: 07/06/2020 1:59 AM Workstation Name: [id number]
--- NOTE | 2020-07-06 02:06 | Cat Scan Report ---
CTA CHEST WITH IV CONTRAST INDICATION: Respiratory failure. TECHNIQUE: Axial CT images were obtained through the chest after injection of 100 mL Omnipaque 350 IV contrast. 3 plane MIP reconstructions were produced. All CT scans at this location are performed using CT dose reduction for ALARA by means of automated exposure control. COMPARISON: None available. FINDINGS: Pulmonary Arteries: No pulmonary emboli. Lungs: There are trace bilateral pleural effusions. There is mild diffuse interlobular septal thicken ing suggesting pulmonary edema. There is bibasilar consolidation. Trachea and Bronchi: No significant abnormality. Heart and Pericardium: Mild coronary atherosclerotic calcifications. Vasculature: Atherosclerotic but not aneurysmal thoracic aorta. Lymphatics: No lymphadenopathy. Additional Findings: None. Upper Abdomen: No acute findings. Skeletal Structures: Posterior thoracic spine fixation hardware and intervertebral bone graft present . IMPRESSION: 1. No CT evidence for pulmonary embolism. 2. Bibasilar consolidation with associated tiny bilateral pleural effusions that could be due to pneu monia, aspiration, or atelectasis. 3. Additional diffuse interlobular septal thickening suggest a component of interstitial pulmonary ed mary. Signer Name: Francesco Dorsey MD Signed: 07/06/2020 2:02 AM Workstation Name: [id number]
[2020-07-06 02:18] LABS: C-Reactive Protein 1.6 mg/dL (0.00-1.30)
[2020-07-06] MEDS ORDERED: hydrALAZINE 20 MG/1 ML INJ IV PRN (02:30)
[2020-07-06] MEDS ORDERED: levETIRAcetam 500 MG in DEXTROSE 5% IN WATER 100 ML IV ONE (02:33)
[2020-07-06] MEDS ORDERED: ONDANSETRON 4 MG/2 ML INJ IV PRN (02:44)
[2020-07-06] MEDS ORDERED: ACETAMINOPHEN 650 MG RECT SUPP PR PRN (02:44)
[2020-07-06] MEDS ORDERED: MORPHINE 2 MG/1 ML INJ IV PRN (02:44)
[2020-07-06] MEDS ORDERED: SODIUM CHLORIDE 0.9% 1000 ML 1,000 ML IV SCH (02:45)
[2020-07-06 02:57] LABS: Chol/HDL Ratio 2.59 %; HDL Cholesterol 42 mg/dL (40-59); LDL Cholesterol,Direct 43 mg/dL (50-130)
[2020-07-06] MEDS ORDERED: SODIUM CHLORIDE 0.9% 1000 ML 1,000 ML ONE (03:29)
--- NOTE | 2020-07-06 04:32 | History and Physical Report ---
History of Present Illness Date of examination: 07/06/20 Date of admission: 07/06/20 02:35 Chief complaint: Altered mental status History of present illness: Patient is a 59-year-old female who presents to the emergency room from a local retirement today with changes in mental status and generalized weakness. Most of the history was gotten from the emergency room staff as patient is unable to give any history at this time. Patient is currently intubated. Patient was brought to the emergency room by EMS and was initially on nonrebreather, she was hypoxic, blood pressure systolic was in the 80s and 90s and was unable to protect her airway and therefore subsequently intubated. Work-up in the emergency room today, chest x-ray did not reveal any significant abnormality. Labs shows elevated troponin. CTA of the chest reveals:1. No CT evidence for pulmonary embolism. 2. Bibasilar consolidation with associated tiny bilateral pleural effusions that could be due to pneumonia, aspiration, or atelectasis. 3. Additional diffuse interlobular septal thickening suggest a component of interstitial pulmonary edema. CT scan of the head reveals: Small 1 cm parenchymal hemorrhage in the left parietal juxtacortical region. Patient has been placed on empiric IV antibiotics for possible underlying pneumonia versus Covid. Neurosurgeon has also been consulted for evaluation of the findings on CT scan of the head. Medications and Allergies Allergies Allergy/AdvReac Type Severity Reaction Status Date / Time clopidogrel [From Plavix] Allergy Unknown Verified 04/20/20 14:51 hydromorphone [From Dilaudid] Allergy Unknown Verified 04/20/20 14:51 phenobarbital Allergy Unknown Verified 04/20/20 14:51 Home Medications Medication Instructions Recorded Confirmed Last Taken Type cephALEXin [Keflex] 500 mg PO Q8HR 7 Days #21 cap 04/20/20 Unknown Rx Active Meds: Active Medications Acetaminophen (Tylenol) 650 mg [place] Q4H PRN PRN Reason: Pain, Mild (1-3) Bisacodyl (Dulcolax) 10 mg NE QDAY PRN PRN Reason: Constipation unrelieved by MOM Fentanyl (Sublimaze) 50 mcg IV Q10MIN PRN PRN Reason: ANALGESIA Last Admin: 07/06/20 01:20 Dose: 50 mcg Documented by: Hydralazine HCl (Apresoline) 5 mg IV Q30MIN PRN PRN Reason: Hypertension Hydrophilic Ointment (Vaseline Lip Therapy) 1 applic TP Q2HR PRN PRN Reason: Dry Lips Fentanyl Citrate (Fentanyl Drip Premix) 2,000 mcg in 100 mls @ 3.561 mls/hr IV TITR LUZ MARAI; Protocol Last Titration: 07/06/20 03:05 Dose: 4 mcg/kg/hr, 14.243 mls/hr Documented by: Sodium Chloride (Nacl 0.9% 1000 Ml) 1,000 mls @ 75 mls/hr IV DIRECT LUZ MARIA Ceftriaxone Sodium (Rocephin/Ns 2 Gm/100 Ml) 2 gm in 100 mls @ 200 mls/hr IV Q24HR LUZ MARIA; Protocol Azithromycin 500 mg/ Sodium (Chloride) 250 mls @ 250 mls/hr IV Q24HR LUZ MARIA; Protocol Propofol (Diprivan 10 Mg/Ml) 1,000 mg in 100 mls @ 2.136 mls/hr IV TITR LUZ MARIA; Protocol Morphine Sulfate (Morphine) 2 mg IV Q4H PRN PRN Reason: Pain, Moderate (4-6) Multi-Ingred Cream/Lotion/Oil/Oint (Artificial Tears Ophth Oint) 1 applic OU Q4HR PRN PRN Reason: Dry Eye(s) Ondansetron HCl (Zofran) 4 mg IV Q8H PRN PRN Reason: N/V unrelieved by Reglan Sodium Chloride (Sodium Chloride Flush Syringe 10 Ml) 10 ml IV BID LUZ MARIA Sodium Chloride (Sodium Chloride Flush Syringe 10 Ml) 10 ml IV PRN PRN PRN Reason: LINE FLUSH Review of Systems ROS unobtainable: due to mental status Exam - Constitutional Vitals: Temp Pulse Resp BP Pulse Ox 98.3 F 87 20 159/73 99 07/05/20 21:05 07/06/20 02:30 07/06/20 02:30 07/06/20 02:30 07/06/20 02:00 General appearance: Present: no acute distress, well-nourished - EENT Eyes: Present: PERRL, EOM intact. Absent: scleral icterus ENT: hearing intact, clear oral mucosa, dentition normal - Neck Neck: Present: supple, normal ROM - Respiratory Respiratory effort: normal Respiratory: bilateral: CTA - Cardiovascular Rhythm: regular Heart Sounds: Present: S1 & S2. Absent: gallop, systolic murmur, diastolic murmur, rub - Extremities Extremities: no ischemia, pulses intact, pulses symmetrical, No edema, Full ROM Peripheral Pulses: within normal limits - Abdominal General gastrointestinal: Present: soft, non-tender, non-distended, normal bowel sounds. Absent: mass - Integumentary Integumentary: Present: clear, warm, dry - Musculoskeletal Musculoskeletal: strength equal bilaterally - Psychiatric Psychiatric: cooperative, other (Confused.) - Neurologic Neurologic: no focal deficits, moves all extremities, other (Alert ) HEART Score - HEART Score Troponin: Troponin T 0.032 ng/mL (0.00-0.029) H 07/05/20 23:06 Results - Labs CBC & Chem 7: 07/05/20 23:42 07/05/20 23:06 Labs: Abnormal lab results 07/05/20 07/05/20 07/05/20 Range/Units 22:55 23:06 23:06 MCV (79-97) fl RDW (13.2-15.2) % [place] % (Auto) (0.0-7.3) % Lymph # (Auto) (1.2-5.4) K/mm3 [place] # (Auto) (0.0-0.8) K/mm3 PT 15.2 H (12.2-14.9) Sec. INR 1.18 H (0.87-1.13) D-Dimer 1298.20 H (0-234) ng/mlDDU ABG pO2 227.3 H (80.0-90.0) mm Hg ABG HCO3 31.3 H (20.0-26.0) mmol/L ABG O2 Saturation 99.3 H (95.0-99.0) % ABG Base Excess 5.8 H (-2.0-3.0) mmol/L BUN 31 H (7-17) mg/dL Calcium 7.7 L (8.4-10.2) mg/dL Lactate Dehydrogenase 217 H (91-180) units/L Troponin T 0.032 H (0.00-0.029) ng/mL C-Reactive Protein 1.60 H (0.00-1.30) mg/dL Total Protein 5.2 L (6.3-8.2) g/dL Albumin 2.6 L (3.9-5) g/dL LDL Cholesterol Direct 43 L (50-130) mg/dL TSH (0.270-4.200) mlU/mL Salicylates (2.8-20.0) mg/dL Acetaminophen (10.0-30.0) ug/mL 07/05/20 07/05/20 07/05/20 Range/Units 23:06 23:06 23:06 MCV (79-97) fl RDW (13.2-15.2) % [place] % (Auto) (0.0-7.3) % Lymph # (Auto) (1.2-5.4) K/mm3 [place] # (Auto) (0.0-0.8) K/mm3 PT (12.2-14.9) Sec. INR (0.87-1.13) D-Dimer (0-234) ng/mlDDU ABG pO2 (80.0-90.0) mm Hg ABG HCO3 (20.0-26.0) mmol/L ABG O2 Saturation (95.0-99.0) % ABG Base Excess (-2.0-3.0) mmol/L BUN (7-17) mg/dL Calcium (8.4-10.2) mg/dL Lactate Dehydrogenase (91-180) units/L Troponin T (0.00-0.029) ng/mL C-Reactive Protein (0.00-1.30) mg/dL Total Protein (6.3-8.2) g/dL Albumin (3.9-5) g/dL LDL Cholesterol Direct (50-130) mg/dL TSH 15.130 H (0.270-4.200) mlU/mL Salicylates < 0.3 L (2.8-20.0) mg/dL Acetaminophen < 5.0 L (10.0-30.0) ug/mL 07/05/20 07/05/20 Range/Units 23:06 23:42 MCV 98 H (79-97) fl RDW 19.8 H (13.2-15.2) % [place] % (Auto) 15.9 H (0.0-7.3) % Lymph # (Auto) 0.9 L (1.2-5.4) K/mm3 [place] # (Auto) 1.0 H (0.0-0.8) K/mm3 PT (12.2-14.9) Sec. INR (0.87-1.13) D-Dimer (0-234) ng/mlDDU ABG pO2 (80.0-90.0) mm Hg ABG HCO3 (20.0-26.0) mmol/L ABG O2 Saturation (95.0-99.0) % ABG Base Excess (-2.0-3.0) mmol/L BUN (7-17) mg/dL Calcium (8.4-10.2) mg/dL Lactate Dehydrogenase 217 H (91-180) units/L Troponin T (0.00-0.029) ng/mL C-Reactive Protein 1.60 H (0.00-1.30) mg/dL Total Protein (6.3-8.2) g/dL Albumin (3.9-5) g/dL LDL Cholesterol Direct (50-130) mg/dL TSH (0.270-4.200) mlU/mL Salicylates (2.8-20.0) mg/dL Acetaminophen (10.0-30.0) ug/mL Assessment and Plan - Patient Problems (1) Acute encephalopathy Current Visit: Yes Status: Acute Plan to address problem: Etiology is unclear possibly secondary to underlying infection versus cerebral hemorrhage. Will monitor mental status. Neurosurgeon has been consulted for the cerebral hemorrhage. (2) Acute respiratory failure Current Visit: Yes Status: Acute Qualifiers: Respiratory failure complication: hypoxia Qualified Code(s): J96.01 - Acute respiratory failure with hypoxia Plan to address problem: Patient currently intubated and sedated. [employer] has been consulted by the ER physician. (3) Intracranial hemorrhage Current Visit: Yes Status: Acute Plan to address problem: We WILL await repeat CT scan of the head. Neurosurgeon following. (4) Suspected 2019 novel coronavirus infection Current Visit: Yes Status: Acute Plan to address problem: Patient placed on isolation precautions. We await Covid test result. Consult placed to infectious disease for evaluation. (5) DVT prophylaxis Current Visit: Yes Status: Acute Plan to address problem: Patient placed on sequential compression device. (6) Full code status Current Visit: Yes Status: Acute
[2020-07-06] MEDS ORDERED: fentaNYL DRIP Premix 2,000 MCG/100 ML BAG IV ONE ×3 (07:43→21:36)
[2020-07-06] MEDS ORDERED: AZITHROMYCIN 500 MG in SODIUM CHLORIDE 0.9% 250ML 250 ML IV SCH (10:00)
[2020-07-06] MEDS ORDERED: cefTRIAXone/NS 2 GM/100 ML 2 GM/100 ML BAG IV SCH (10:00)
--- NOTE | 2020-07-06 10:07 | Consultation ---
History of Present Illness Consult date: 07/06/20 Requesting physician: ZAKI GLASS Reason for consult: hypoxemia History of present illness: 59 y/o female, admitted last night with altered mental state and hypoxemia from a local senior living. Patient was not able to provide history. On arrival she was on a Nonrebreather. Per ED note, patient was groaning and moving all extremities nonpurposefully. Also per them she was not able to protect her airway and had no gag reflex. She was intubated and started on sedation. This am she is currently on Fentanyl 4. She is not breathing over the vent. Her TSH was elevated at 15. LDH, CRP and D-Dimer were elevated as well. Given this, she has been placed on PUI for COVID. She has not had a sedation vacation since intubation. No repeat labs since last night. Remainder is either unremarkable or unobtainable. CTA was negative for PE. She has had back surgery in the past. Past History Past Medical History: other (Back surgery based on films, but rest is not obtai nable secondary to mental state) Past Surgical History: Other (back surgery for sure) Social history: other (unable to obtain) Family history: other (unable to obtain) Medications and Allergies Allergies Allergy/AdvReac Type Severity Reaction Status Date / Time clopidogrel [From Plavix] Allergy Unknown Verified 04/20/20 14:51 hydromorphone [From Dilaudid] Allergy Unknown Verified 04/20/20 14:51 phenobarbital Allergy Unknown Verified 04/20/20 14:51 Home Medications Medication Instructions Recorded Confirmed Last Taken Type cephALEXin [Keflex] 500 mg PO Q8HR 7 Days #21 cap 04/20/20 Unknown Rx Active Meds: Active Medications Acetaminophen (Tylenol) 650 mg [place] Q4H PRN PRN Reason: Pain, Mild (1-3) Bisacodyl (Dulcolax) 10 mg [place] QDAY PRN PRN Reason: Constipation unrelieved by MOM Famotidine (Pepcid) 20 mg IV BID LUZ MARIA Fentanyl (Sublimaze) 50 mcg IV Q10MIN PRN PRN Reason: ANALGESIA Last Admin: 07/06/20 01:20 Dose: 50 mcg Documented by: Hydralazine HCl (Apresoline) 5 mg IV Q30MIN PRN PRN Reason: Hypertension Hydrophilic Ointment (Vaseline Lip Therapy) 1 applic TP Q2HR PRN PRN Reason: Dry Lips Fentanyl Citrate (Fentanyl Drip Premix) 2,000 mcg in 100 mls @ 3.561 mls/hr IV TITR LUZ MARIA; Protocol Last Titration: 07/06/20 09:58 Dose: 4 mcg/kg/hr, 14.243 mls/hr Documented by: Sodium Chloride (Nacl 0.9% 1000 Ml) 1,000 mls @ 75 mls/hr IV DIRECT LUZ MARIA Ceftriaxone Sodium (Rocephin/Ns 2 Gm/100 Ml) 2 gm in 100 mls @ 200 mls/hr IV Q24HR LUZ MARIA; Protocol Azithromycin 500 mg/ Sodium (Chloride) 250 mls @ 250 mls/hr IV Q24HR LUZ MARIA; Protocol Propofol (Diprivan 10 Mg/Ml) 1,000 mg in 100 mls @ 2.136 mls/hr IV TITR LUZ MARIA; Protocol Last Titration: 07/06/20 04:00 Dose: 10 mcg/kg/min, 4.273 mls/hr Documented by: Morphine Sulfate (Morphine) 2 mg IV Q4H PRN PRN Reason: Pain, Moderate (4-6) Multi-Ingred Cream/Lotion/Oil/Oint (Artificial Tears Ophth Oint) 1 applic OU Q4HR PRN PRN Reason: Dry Eye(s) Ondansetron HCl (Zofran) 4 mg IV Q8H PRN PRN Reason: N/V unrelieved by Reglan Sodium Chloride (Sodium Chloride Flush Syringe 10 Ml) 10 ml IV BID LUZ MARIA Sodium Chloride (Sodium Chloride Flush Syringe 10 Ml) 10 ml IV PRN PRN PRN Reason: LINE FLUSH Review of Systems All systems: negative Physical Examination Vital signs: Vital Signs Pulse Resp 80 13 07/05/20 21:00 07/05/20 21:00 Patient not examined in person as I have no N95 mask present with me at this time. Results - Laboratory Findings CBC and BMP: 07/05/20 23:42 07/05/20 23:06 ABG ABG pH 7.533 (7.320-7.450) H 07/06/20 06:58 POC ABG pCO2 20.7 mmHg (32.0-48.0) L 07/06/20 06:58 ABG pCO2 49.7 mm Hg 07/05/20 22:55 ABG pO2 227.3 mm Hg (80.0-90.0) H 07/05/20 22:55 POC ABG HCO3 17.0 07/06/20 06:58 ABG O2 Saturation 99.3 % (95.0-99.0) H 07/05/20 22:55 PT/INR, D-dimer PT 15.2 Sec. (12.2-14.9) H 07/05/20 23:06 INR 1.18 (0.87-1.13) H 07/05/20 23:06 D-Dimer 1298.20 ng/mlDDU (0-234) H 07/05/20 23:06 Abnormal lab findings: Abnormal Labs 07/05/20 07/05/20 07/05/20 22:55 23:06 23:06 MCV RDW [place] % (Auto) Lymph # (Auto) [place] # (Auto) PT 15.2 H INR 1.18 H D-Dimer 1298.20 H ABG pH POC ABG pCO2 ABG pO2 227.3 H ABG HCO3 31.3 H ABG O2 Saturation 99.3 H ABG Base Excess 5.8 H ABG Hemoglobin ABG Sodium ABG Glucose BUN 31 H Calcium 7.7 L Lactate Dehydrogenase 217 H Troponin T 0.032 H C-Reactive Protein 1.60 H Total Protein 5.2 L Albumin 2.6 L LDL Cholesterol Direct 43 L TSH Arterial Blood Glucose Arterial Blood Ionized Calcium Salicylates Acetaminophen 07/05/20 07/05/20 07/05/20 23:06 23:06 23:06 MCV RDW [place] % (Auto) Lymph # (Auto) [place] # (Auto) PT INR D-Dimer ABG pH POC ABG pCO2 ABG pO2 ABG HCO3 ABG O2 Saturation ABG Base Excess ABG Hemoglobin ABG Sodium ABG Glucose BUN Calcium Lactate Dehydrogenase Troponin T C-Reactive Protein Total Protein Albumin LDL Cholesterol Direct TSH 15.130 H Arterial Blood Glucose Arterial Blood Ionized Calcium Salicylates < 0.3 L Acetaminophen < 5.0 L 07/05/20 07/05/20 07/06/20 23:06 23:42 06:58 MCV 98 H RDW 19.8 H [place] % (Auto) 15.9 H Lymph # (Auto) 0.9 L [place] # (Auto) 1.0 H PT INR D-Dimer ABG pH 7.533 H POC ABG pCO2 20.7 L ABG pO2 ABG HCO3 ABG O2 Saturation ABG Base Excess ABG Hemoglobin 7.6 L ABG Sodium 132.3 L ABG Glucose 55 L BUN Calcium Lactate Dehydrogenase 217 H Troponin T C-Reactive Protein 1.60 H Total Protein Albumin LDL Cholesterol Direct TSH Arterial Blood Glucose 55 L Arterial Blood Ionized Calcium 4.3 L Salicylates Acetaminophen - Diagnostic Findings Chest x-ray: report reviewed, image reviewed CT scan - chest: report reviewed, image reviewed Assessment and Plan 59 y/o female admitted with altered mental state and acute respiratory failure, etiology of both unknown found to have elevated TSH. 1. Needs sedation vacation. Unsure of ED protocol on this. Will ask our ICU nurses to help but this should be done daily. Not sure how long patient will have to board in ED. At this point, not sure why patient needs fentanyl and diprovan. Diprovan documented is not at max dosing. 2. Will check Free T4 given elevated TSH. If low, will need to replace but prior to that will need to be started on stress dose steroids with hydrocortisone 3. Follow up repeat labs ordered for today. 4. Needs NG vs Dobb Pool vs OG and start feeds 5. Agree with GI prophylaxis, also needs DVT prophylaxis 6. Wean FiO2 for sats >88% 7. Will check BNP as well 8. COVID tests will be back this afternoon. If positive, would need dexamethasone 6 mg PO daily. Oxygen requirement is not bad at this point so can hold on proning. Guarded prognosis. CCT 31 minutes. Hopeful someone can find contact information for family
[2020-07-06] MEDS ORDERED: cefTRIAXone/NS 2 GM/100 ML 2 GM/100 ML BAG IV ONE (10:40)
[2020-07-06] MEDS ORDERED: FAMOTIDINE 20 MG/2 ML INJ IV ONE ×2 (10:40→21:37)
[2020-07-06] MEDS: FAMOTIDINE 20 MG/2 ML INJ IV SCH ×2 (11:02→21:42)
[2020-07-06 11:33] LABS: Basophils % (Auto) 0.1 % (0.0-1.8); Lymphocytes # (Auto) 0.7 K/mm3 (1.2-5.4); Lymphocytes % (Auto) 7.2 % (13.4-35.0); Mean Corpuscular HGB Conc 31 % (30-34); Mean Corpuscular Volume 100 fl (79-97); Monocytes # (Auto) 1.1 K/mm3 (0.0-0.8); Monocytes % (Auto) 11.4 % (0.0-7.3); Platelet Count 185 K/mm3 (140-440); Red Blood Count 4.29 M/mm3 (3.65-5.03)
--- NOTE | 2020-07-06 12:07 | Consultation ---
History of Present Illness Consult date: 07/06/20 Consult reason: elevated troponin History of present illness: Patient is a 59-year old woman with chronic lung disease, who has had multiple admissions to this hospital for COPD exacerbation. She has a cardiac history of coronary artery disease with a chronic total occlusion of the right coronary artery and a patent stent in the mid LAD described on previous cardiac catheterization. She also has paroxysmal atrial fibrillation/flutter. She has previously been determined not a candidate for oral anticoagulation due to severe anemia and GI bleed. An echocardiogram done at this hospital 5 months ago, showed a well preserved left ventricular systolic function, ejection fraction 50-55%. She was sent from the assisted to this hospital yesterday with report of altered mental status, fever and hypotension. She was evaluated in the emergency room, deem unstable and intubated for airway protection. She is currently on isolation protocol for suspected coronavirus infection. Head CT scan showed small 1 cm parenchymal hemorrhage in the left parietal juxtacortical region. Labs showed a elevated d-dimer and a TSH at 15.1. Chest CTA was negative for PE. An ECG done shows sinus rhythm. No evidence of recurrent atrial fibrillation. Past History Social history: other (unable to obtain) Family history: other (unable to obtain) Medications and Allergies Allergies Allergy/AdvReac Type Severity Reaction Status Date / Time clopidogrel [From Plavix] Allergy Unknown Verified 04/20/20 14:51 hydromorphone [From Dilaudid] Allergy Unknown Verified 04/20/20 14:51 phenobarbital Allergy Unknown Verified 04/20/20 14:51 Home Medications Medication Instructions Recorded Confirmed Last Taken Type cephALEXin [Keflex] 500 mg PO Q8HR 7 Days #21 cap 04/20/20 Unknown Rx Active Meds: Active Medications Acetaminophen (Tylenol) 650 mg [place] Q4H PRN PRN Reason: Pain, Mild (1-3) Bisacodyl (Dulcolax) 10 mg [place] QDAY PRN PRN Reason: Constipation unrelieved by MOM Famotidine (Pepcid) 20 mg IV BID LUZ MARIA Last Admin: 07/06/20 11:02 Dose: 20 mg Documented by: Fentanyl (Sublimaze) 50 mcg IV Q10MIN PRN PRN Reason: ANALGESIA Last Admin: 07/06/20 01:20 Dose: 50 mcg Documented by: Hydralazine HCl (Apresoline) 5 mg IV Q30MIN PRN PRN Reason: Hypertension Hydrophilic Ointment (Vaseline Lip Therapy) 1 applic TP Q2HR PRN PRN Reason: Dry Lips Fentanyl Citrate (Fentanyl Drip Premix) 2,000 mcg in 100 mls @ 3.561 mls/hr IV TITR LUZ MARIA; Protocol Last Titration: 07/06/20 09:58 Dose: 4 mcg/kg/hr, 14.243 mls/hr Documented by: Sodium Chloride (Nacl 0.9% 1000 Ml) 1,000 mls @ 75 mls/hr IV DIRECT LUZ MARIA Last Admin: 07/06/20 11:02 Dose: 75 mls/hr Documented by: Ceftriaxone Sodium (Rocephin/Ns 2 Gm/100 Ml) 2 gm in 100 mls @ 200 mls/hr IV Q24HR LUZ MARIA; Protocol Last Admin: 07/06/20 11:02 Dose: 200 mls/hr Documented by: Azithromycin 500 mg/ Sodium (Chloride) 250 mls @ 250 mls/hr IV Q24HR LUZ MARIA; Protocol Last Admin: 07/06/20 11:02 Dose: 250 mls/hr Documented by: Propofol (Diprivan 10 Mg/Ml) 1,000 mg in 100 mls @ 2.136 mls/hr IV TITR LUZ MARIA; Protocol Last Titration: 07/06/20 04:00 Dose: 10 mcg/kg/min, 4.273 mls/hr Documented by: Morphine Sulfate (Morphine) 2 mg IV Q4H PRN PRN Reason: Pain, Moderate (4-6) Multi-Ingred Cream/Lotion/Oil/Oint (Artificial Tears Ophth Oint) 1 applic OU Q4HR PRN PRN Reason: Dry Eye(s) Ondansetron HCl (Zofran) 4 mg IV Q8H PRN PRN Reason: N/V unrelieved by Reglan Sodium Chloride (Sodium Chloride Flush Syringe 10 Ml) 10 ml IV BID LUZ MARIA Last Admin: 07/06/20 11:02 Dose: 10 ml Documented by: Sodium Chloride (Sodium Chloride Flush Syringe 10 Ml) 10 ml IV PRN PRN PRN Reason: LINE FLUSH Physical Examination Vital Signs Pulse Resp 80 13 07/05/20 21:00 07/05/20 21:00 General appearance: other (intubated on the vent) Results 07/05/20 23:42 07/05/20 23:06 Cardiac Enzymes 07/05/20 07/05/20 Range/Units 23:06 23:06 AST 14 (5-40) units/L Lactate Dehydrogenase 217 H 217 H (91-180) units/L Coagulation 07/05/20 Range/Units 23:06 PT 15.2 H (12.2-14.9) Sec. INR 1.18 H (0.87-1.13) APTT 30.8 (24.2-36.6) Sec. Lipids 07/05/20 Range/Units 23:06 Triglycerides 126 (2-149) mg/dL Cholesterol 109 (50-199) mg/dL HDL Cholesterol 42 (40-59) mg/dL Cholesterol/HDL Ratio 2.59 % CBC 07/05/20 07/06/20 Range/Units 23:42 11:09 WBC 6.3 (4.5-11.0) K/mm3 RBC 3.87 (3.65-5.03) M/mm3 Hgb 11.7 (10.1-14.3) gm/dl Hct 38.0 (30.3-42.9) % Plt Count 156 (140-440) K/mm3 Lymph # (Auto) 0.9 L (1.2-5.4) K/mm3 [place] # (Auto) 1.0 H 1.1 H (0.0-0.8) K/mm3 Eos # (Auto) 0.0 0.0 (0.0-0.4) K/mm3 Baso # (Auto) 0.0 0.0 (0.0-0.1) K/mm3 Comprehensive Metabolic Panel 07/05/20 07/05/20 Range/Units 23:06 23:06 Sodium 145 (137-145) mmol/L Potassium 4.0 (3.6-5.0) mmol/L Chloride 106.3 (98-107) mmol/L Carbon Dioxide 29 (22-30) mmol/L BUN 31 H (7-17) mg/dL Creatinine 0.6 (0.6-1.2) mg/dL Glucose 86 85 (65-100) mg/dL Calcium 7.7 L (8.4-10.2) mg/dL AST 14 (5-40) units/L ALT 13 (7-56) units/L Alkaline Phosphatase 92 (35-129) units/L Total Protein 5.2 L (6.3-8.2) g/dL Albumin 2.6 L (3.9-5) g/dL Assessment and Plan Hx of Paroxysmal Atrial flutter/afib/MAT not on anticoagulation secondary to history of melena and anemia. History of [place]/Coronary artery disease 01/2020 echo: normal LVEF 50-55% 2017 [facility] at [facility]: [employer] of the RCA recommend for medical therapy. She did undergo PCI of the mid LAD using bare metal stent. Altered mental status -reason for admission head CT scan showed small 1 cm parenchymal hemorrhage in the left parietal juxtacortical region. Chest CTA negative for PE COPD on home oxygen Hypothyroidism TSH at 15.1
--- NOTE | 2020-07-06 12:24 | XRay Report ---
ABDOMEN 1 VIEW(S) 07/06/2020 7:27 AM INDICATION: OGT PLACEMENT. COMPARISON: Chest radiograph dated 07/05/2020 FINDINGS: The tip of the nasogastric tube projects over the gastric lumen while the sidehole projects over the level the GE junction. Advancement approximately 6 cm is recommend. Abundant fecal material noted thr oughout the colon, correlate clinically for constipation. Additional findings are unchanged from prio r exam.. Signer Name: Kolby Doherty MD Signed: 07/06/2020 8:42 AM Workstation Name: [id number]
[2020-07-06 13:04] LABS: Hemoglobin 13.1 gm/dl (10.1-14.3); Red Cell Distribution Width 20.8 % (13.2-15.2)
--- NOTE | 2020-07-06 14:06 | Consultation ---
History of Present Illness - Reason for Consult Consult date: 07/06/20 Rule out COVID Requesting physician: ZAKI GLASS - History of Present Illness The patient is a 59-year-old female snf resident with history of CHF, COPD, gastroesophageal reflux disease, CKD, history of back surgery with spinal hardware was admitted to the hospital yesterday with altered mental status. Upon evaluation in the ER, she was noted to be hypoxic and hypotensive. For airway protection, she was intubated. CTA of the chest revealed no pulmonary embolism but showed bilateral consolidation concerning for possible pneumonia versus aspiration. Infectious diseases was consulted for additional evaluation. COVID-19 test is pending at this time. She has been afebrile. Remains on the vent at this time. CT head showed a small parenchymal hemorrhage. Labs showed no leukocytosis, CRP is 1.6, procalcitonin 0.05, ferritin 60.8. Review of Systems: reviewed in the chart, unable to obtain directly due to PPE preservation and minimize risk of transmission Past History Past Medical History: other (Back surgery based on films, but rest is not obtainable secondary to mental state) Past Surgical History: Other (back surgery for sure) Social history: other (unable to obtain) Family history: other (unable to obtain) Medications and Allergies Allergies Allergy/AdvReac Type Severity Reaction Status Date / Time clopidogrel [From Plavix] Allergy Unknown Verified 04/20/20 14:51 hydromorphone [From Dilaudid] Allergy Unknown Verified 04/20/20 14:51 phenobarbital Allergy Unknown Verified 04/20/20 14:51 Home Medications Medication Instructions Recorded Confirmed Last Taken Type cephALEXin [Keflex] 500 mg PO Q8HR 7 Days #21 cap 04/20/20 Unknown Rx Active Meds: Active Medications Acetaminophen (Tylenol) 650 mg WV Q4H PRN PRN Reason: Pain, Mild (1-3) Bisacodyl (Dulcolax) 10 mg WV QDAY PRN PRN Reason: Constipation unrelieved by MOM Famotidine (Pepcid) 20 mg IV BID LUZ MARIA Last Admin: 07/06/20 11:02 Dose: 20 mg Documented by: Fentanyl (Sublimaze) 50 mcg IV Q10MIN PRN PRN Reason: ANALGESIA Last Admin: 07/06/20 01:20 Dose: 50 mcg Documented by: Hydralazine HCl (Apresoline) 5 mg IV Q30MIN PRN PRN Reason: Hypertension Hydrophilic Ointment (Vaseline Lip Therapy) 1 applic TP Q2HR PRN PRN Reason: Dry Lips Fentanyl Citrate (Fentanyl Drip Premix) 2,000 mcg in 100 mls @ 3.561 mls/hr IV TITR LUZ MARIA; Protocol Last Titration: 07/06/20 09:58 Dose: 4 mcg/kg/hr, 14.243 mls/hr Documented by: Sodium Chloride (Nacl 0.9% 1000 Ml) 1,000 mls @ 75 mls/hr IV DIRECT LUZ MARIA Last Admin: 07/06/20 11:02 Dose: 75 mls/hr Documented by: Ceftriaxone Sodium (Rocephin/Ns 2 Gm/100 Ml) 2 gm in 100 mls @ 200 mls/hr IV Q24HR LUZ MARIA; Protocol Last Admin: 07/06/20 11:02 Dose: 200 mls/hr Documented by: Azithromycin 500 mg/ Sodium (Chloride) 250 mls @ 250 mls/hr IV Q24HR LUZ MARIA; Protocol Last Admin: 07/06/20 11:02 Dose: 250 mls/hr Documented by: Propofol (Diprivan 10 Mg/Ml) 1,000 mg in 100 mls @ 2.136 mls/hr IV TITR LUZ MARIA; Protocol Last Titration: 07/06/20 04:00 Dose: 10 mcg/kg/min, 4.273 mls/hr Documented by: Morphine Sulfate (Morphine) 2 mg IV Q4H PRN PRN Reason: Pain, Moderate (4-6) Multi-Ingred Cream/Lotion/Oil/Oint (Artificial Tears Ophth Oint) 1 applic OU Q4HR PRN PRN Reason: Dry Eye(s) Ondansetron HCl (Zofran) 4 mg IV Q8H PRN PRN Reason: N/V unrelieved by Reglan Sodium Chloride (Sodium Chloride Flush Syringe 10 Ml) 10 ml IV BID LUZ MARIA Last Admin: 07/06/20 11:02 Dose: 10 ml Documented by: Sodium Chloride (Sodium Chloride Flush Syringe 10 Ml) 10 ml IV PRN PRN PRN Reason: LINE FLUSH Physical Examination - Physical Exam Narrative exam: Physical Exam (reviewed in chart due to PPE conservation and minimize risk of transmission) Constitutional: limited due to PPE conservation strategy Head, Ears, Nose: limited due to PPE conservation strategy Eyes: limited due to PPE conservation strategy Neck: limited due to PPE conservation strategy Oral: limited due to PPE conservation strategy Cardiovascular: limited due to PPE conservation strategy Respiratory: limited due to PPE conservation strategy GI: limited due to PPE conservation strategy Musculoskeletal: limited due to PPE conservation strategy Skin: limited due to PPE conservation strategy Hem/Lymphatic: limited due to PPE conservation strategy Psych: limited due to PPE conservation strategy Neurological: limited due to PPE conservation strategy - Constitutional Vitals: Vital Signs Temp Pulse Resp BP Pulse Ox 98.3 F 68 16 101/44 98 07/05/20 21:05 07/06/20 13:55 07/06/20 13:55 07/06/20 13:55 07/06/20 13:55 Temperature -Last 24 Hours Temperature 98.3 F Results - Labs CBC & Chem 7: 07/06/20 11:09 07/05/20 23:06 Labs: Abnormal lab results 07/05/20 07/05/20 07/05/20 Range/Units 22:55 23:06 23:06 Hct (30.3-42.9) % MCV (79-97) fl RDW (13.2-15.2) % Lymph % (Auto) (13.4-35.0) % [place] % (Auto) (0.0-7.3) % Lymph # (Auto) (1.2-5.4) K/mm3 [place] # (Auto) (0.0-0.8) K/mm3 Seg Neutrophils % (40.0-70.0) % Seg Neutrophils # (1.8-7.7) K/mm3 PT 15.2 H (12.2-14.9) Sec. INR 1.18 H (0.87-1.13) D-Dimer 1298.20 H (0-234) ng/mlDDU ABG pH (7.320-7.450) POC ABG pCO2 (32.0-48.0) mmHg ABG pO2 227.3 H (80.0-90.0) mm Hg ABG HCO3 31.3 H (20.0-26.0) mmol/L ABG O2 Saturation 99.3 H (95.0-99.0) % ABG Base Excess 5.8 H (-2.0-3.0) mmol/L ABG Hemoglobin (12.0-17.5) ABG Sodium (136.0-145.0) mmol/L ABG Glucose (65-95) mg/dL BUN 31 H (7-17) mg/dL Calcium 7.7 L (8.4-10.2) mg/dL Lactate Dehydrogenase 217 H (91-180) units/L Troponin T 0.032 H (0.00-0.029) ng/mL C-Reactive Protein 1.60 H (0.00-1.30) mg/dL NT-Pro-B Natriuret Pep (0-900) pg/mL Total Protein 5.2 L (6.3-8.2) g/dL Albumin 2.6 L (3.9-5) g/dL LDL Cholesterol Direct 43 L (50-130) mg/dL TSH (0.270-4.200) mlU/mL Arterial Blood Glucose (65-95) mg/dL Arterial Blood Ionized Calcium (4.6-5.3) mg/dL Salicylates (2.8-20.0) mg/dL Acetaminophen (10.0-30.0) ug/mL 07/05/20 07/05/20 07/05/20 Range/Units 23:06 23:06 23:06 Hct (30.3-42.9) % MCV (79-97) fl RDW (13.2-15.2) % Lymph % (Auto) (13.4-35.0) % [place] % (Auto) (0.0-7.3) % Lymph # (Auto) (1.2-5.4) K/mm3 [place] # (Auto) (0.0-0.8) K/mm3 Seg Neutrophils % (40.0-70.0) % Seg Neutrophils # (1.8-7.7) K/mm3 PT (12.2-14.9) Sec. INR (0.87-1.13) D-Dimer (0-234) ng/mlDDU ABG pH (7.320-7.450) POC ABG pCO2 (32.0-48.0) mmHg ABG pO2 (80.0-90.0) mm Hg ABG HCO3 (20.0-26.0) mmol/L ABG O2 Saturation (95.0-99.0) % ABG Base Excess (-2.0-3.0) mmol/L ABG Hemoglobin (12.0-17.5) ABG Sodium (136.0-145.0) mmol/L ABG Glucose (65-95) mg/dL BUN (7-17) mg/dL Calcium (8.4-10.2) mg/dL Lactate Dehydrogenase (91-180) units/L Troponin T (0.00-0.029) ng/mL C-Reactive Protein (0.00-1.30) mg/dL NT-Pro-B Natriuret Pep (0-900) pg/mL Total Protein (6.3-8.2) g/dL Albumin (3.9-5) g/dL LDL Cholesterol Direct (50-130) mg/dL TSH 15.130 H (0.270-4.200) mlU/mL Arterial Blood Glucose (65-95) mg/dL Arterial Blood Ionized Calcium (4.6-5.3) mg/dL Salicylates < 0.3 L (2.8-20.0) mg/dL Acetaminophen < 5.0 L (10.0-30.0) ug/mL 07/05/20 07/05/20 07/06/20 Range/Units 23:06 23:42 06:58 Hct (30.3-42.9) % MCV 98 H (79-97) fl RDW 19.8 H (13.2-15.2) % Lymph % (Auto) (13.4-35.0) % [place] % (Auto) 15.9 H (0.0-7.3) % Lymph # (Auto) 0.9 L (1.2-5.4) K/mm3 [place] # (Auto) 1.0 H (0.0-0.8) K/mm3 Seg Neutrophils % (40.0-70.0) % Seg Neutrophils # (1.8-7.7) K/mm3 PT (12.2-14.9) Sec. INR (0.87-1.13) D-Dimer (0-234) ng/mlDDU ABG pH 7.533 H (7.320-7.450) POC ABG pCO2 20.7 L (32.0-48.0) mmHg ABG pO2 (80.0-90.0) mm Hg ABG HCO3 (20.0-26.0) mmol/L ABG O2 Saturation (95.0-99.0) % ABG Base Excess (-2.0-3.0) mmol/L ABG Hemoglobin 7.6 L (12.0-17.5) ABG Sodium 132.3 L (136.0-145.0) mmol/L ABG Glucose 55 L (65-95) mg/dL BUN (7-17) mg/dL Calcium (8.4-10.2) mg/dL Lactate Dehydrogenase 217 H (91-180) units/L Troponin T (0.00-0.029) ng/mL C-Reactive Protein 1.60 H (0.00-1.30) mg/dL NT-Pro-B Natriuret Pep (0-900) pg/mL Total Protein (6.3-8.2) g/dL Albumin (3.9-5) g/dL LDL Cholesterol Direct (50-130) mg/dL TSH (0.270-4.200) mlU/mL Arterial Blood Glucose 55 L (65-95) mg/dL Arterial Blood Ionized Calcium 4.3 L (4.6-5.3) mg/dL Salicylates (2.8-20.0) mg/dL Acetaminophen (10.0-30.0) ug/mL 07/06/20 07/06/20 Range/Units 11:09 11:09 Hct 43.0 H (30.3-42.9) % MCV 100 H (79-97) fl RDW 20.8 H (13.2-15.2) % Lymph % (Auto) 7.2 L (13.4-35.0) % [place] % (Auto) 11.4 H (0.0-7.3) % Lymph # (Auto) 0.7 L (1.2-5.4) K/mm3 [place] # (Auto) 1.1 H (0.0-0.8) K/mm3 Seg Neutrophils % 81.3 H (40.0-70.0) % Seg Neutrophils # 7.9 H (1.8-7.7) K/mm3 PT (12.2-14.9) Sec. INR (0.87-1.13) D-Dimer (0-234) ng/mlDDU ABG pH (7.320-7.450) POC ABG pCO2 (32.0-48.0) mmHg ABG pO2 (80.0-90.0) mm Hg ABG HCO3 (20.0-26.0) mmol/L ABG O2 Saturation (95.0-99.0) % ABG Base Excess (-2.0-3.0) mmol/L ABG Hemoglobin (12.0-17.5) ABG Sodium (136.0-145.0) mmol/L ABG Glucose (65-95) mg/dL BUN (7-17) mg/dL Calcium (8.4-10.2) mg/dL Lactate Dehydrogenase (91-180) units/L Troponin T (0.00-0.029) ng/mL C-Reactive Protein (0.00-1.30) mg/dL NT-Pro-B Natriuret Pep 30748 H (0-900) pg/mL Total Protein (6.3-8.2) g/dL Albumin (3.9-5) g/dL LDL Cholesterol Direct (50-130) mg/dL TSH (0.270-4.200) mlU/mL Arterial Blood Glucose (65-95) mg/dL Arterial Blood Ionized Calcium (4.6-5.3) mg/dL Salicylates (2.8-20.0) mg/dL Acetaminophen (10.0-30.0) ug/mL - Imaging and Cardiology Chest x-ray: report reviewed, image reviewed CT scan - chest: report reviewed, image reviewed (no pulmonary embolism but showed bilateral consolidation concerning for possible pneumonia versus aspiration) Assessment and Plan Cultures: Coronavirus PCR: Pending 07/05/2020 blood culture: In process A/P: 59-year-old female snf resident with history of CHF, COPD, gastroesophageal reflux disease, CKD, history of back surgery with spinal hardware was admitted to the hospital 07/05/2020 with altered mental status: #Acute hypoxic respiratory failure: Pneumonia versus pulmonary edema. BNP is elevated. Procalcitonin is low. No fever or leukocytosis. ?Aspiration pneumonitis. #Acute encephalopathy, small parenchymal hemorrhage. Recs: Follow-up COVID-19 PCR No fever, no leukocytosis, procalcitonin is also low. Antibiotics discontinued Corbni Fraser MD, FACP [facility] ([facility] O: [phone] F: [phone]
--- NOTE | 2020-07-06 14:31 | Vascular Lab Report ---
"VL carotid duplex BILAT INDICATION / CLINICAL INFORMATION: CVA COMPARISON: None available. FINDINGS: RIGHT CAROTID: Calcified plaques noted of the carotid bulb and internal carotid artery causing modera te intimal irregularity. - PLAQUE ESTIMATE (%): > 70% - CCA velocity: 80 cm/sec. - ICA peak systolic velocity: 289 cm/sec. - ICA/CCA PSV Ratio: 3.45 Right Vertebral Artery: Antegrade flow. LEFT CAROTID: Mild calcified plaques noted of the carotid bulb and internal carotid artery without si gnificant intimal irregularity. - PLAQUE ESTIMATE: < 50% - CCA velocity: 70.1 cm/sec. - ICA peak systolic velocity: 117.3 cm/sec. - ICA/CCA PSV Ratio: 1.67 Left Vertebral Artery: Antegrade flow. IMPRESSION: 1. Greater than 70% stenosis of the right ICA according to peak systolic velocity. 2. Less than 50% stenosis of the left carotid. The patient's nurse ( VALENTÍN Estrada) was informed of the findings at the time of the exam by the ultrasou nd automotive technician at 1105. Velocity criteria are extrapolated from diameter data as defined by the Society of Radiologists in Ul trasound Consensus Conference, Radiology 2003; 229;340-346. Degree of || ICA PSV || Plaque || ICA/CCA Stenosis (%) || (cm/sec) || estimate (%) || PSV Ratio - Normal...............<125..............None.................<2.0 - <50....................<125..............<50....................<2.0 - 50-69................125-230.........>50....................2.0-4.0 - >70 but <100....>230..............>50....................>4.0 - Near...................High, low, .....visible................variable occlusion or none - Total...................None.............visible;................N/A occlusion no lumen Signer Name: Kolby Doherty MD Signed: 07/06/2020 2:26 PM Workstation Name: [id number]"
--- NOTE | 2020-07-06 17:17 | Cat Scan Report ---
CT HEAD WITHOUT CONTRAST 07/06/2020 1649 hours INDICATION / CLINICAL INFORMATION: repeat for head bleed. TECHNIQUE: All CT scans at this location are performed using CT dose reduction for ALARA by means of automated e xposure control. COMPARISON: Head CT 07/06/2020 and 04/20/2020 FINDINGS: HEMORRHAGE: A small (12 x 6 x 6 mm) hemorrhage is observed in the subcutaneous cortical region of the left frontal lobe. This could represent a small hemorrhagic infarction versus hemorrhage due to amyl oid angiopathy or coagulopathy. In this setting of trauma hemorrhagic contusion could be considered. This finding is stable in comparison to recent previous study 07/06/2020 0114 hours. A second, small er (7 x 6 x 3 mm) foci of hemorrhage is observed in a subcortical location in the right frontal lobe. I cannot identify this smaller hemorrhage on baseline study. EXTRA-AXIAL SPACES: Cortical sulci, sylvian fissures and basilar cisterns have an unremarkable appear ance. VENTRICULAR SYSTEM: The ventricular system is of normal size and configuration. CEREBRAL PARENCHYMA: Moderate white matter lucency is seen in both cerebral hemispheres likely [place] of premature microvascular ischemic change. MIDLINE SHIFT OR HERNIATION: There is no mass effect. CEREBELLUM / BRAINSTEM: Brainstem and cerebellum have an unremarkable appearance. MIDLINE STRUCTURES:No abnormalities of the pituitary gland or pineal region are identified. INTRACRANIAL VESSELS: Extensively calcified atherosclerotic plaque is seen along the course of the ca vernous segments of both internal carotid arteries extending up into the supraclinoid regions. ORBITS: visualized portions of the orbits have an unremarkable appearance. SOFT TISSUES of HEAD: No significant abnormality. CALVARIUM: Evaluation of bone windows reveals no abnormalities. PARANASAL SINUSES / MASTOID AIR CELLS: Opacification of multiple mastoid air cells is noted. Air-flui d levels are present in the sphenoid sinuses bilaterally. Mucosal disease is present within the maxil emmett and ethmoid air cells bilaterally and in the left frontal sinus. Fluid accumulation is seen in t he posterior nasopharynx. These findings could be secondary to orotracheal intubation. Paranasal sinu ses and mastoid air cells were free from disease on 04/20/2020. IMPRESSION: 1. 2 small foci of parenchymal hemorrhage are identified as described in detail above. The smaller le raphael located in the right frontal lobe subcortical white matter cannot be identified on baseline stud y. The left frontal parenchymal hematoma is stable in size in comparison to previous examination. Signer Name: Kong Valdez MD Signed: 07/06/2020 5:17 PM Workstation Name: [id number]
[2020-07-06] MEDS ORDERED: DEXTROSE 50% IN WATER (25GM) 50 ML SYRINGE IV ONE ×2 (17:37→19:16)
[2020-07-06 19:04] LABS: Alanine Aminotransferase 10 units/L (7-56); Albumin 2.2 g/dL (3.9-5); BUN/Creatinine Ratio 48; Blood Urea Nitrogen 19 mg/dL (7-17); Calcium 7.2 mg/dL (8.4-10.2); Hemolysis Index 13
[2020-07-06] MEDS ORDERED: DEXTROSE 50% IN WATER (25GM) 50 ML SYRINGE IV PRN (19:30)
[2020-07-06] MEDS ORDERED: GLUCAGON (HUMAN RECOMBINANT) 1 MG/ML INJ IV ONE (19:32)
[2020-07-06] MEDS ORDERED: DEXTROSE 5% IN WATER 1,000 ML IV ONE (19:38)
[2020-07-06] MEDS ORDERED: GLUCAGON (HUMAN RECOMBINANT) 1 MG/ML INJ ONE (19:38)
[2020-07-06] MEDS: DEXTROSE 5% IN WATER 1,000 ML IV SCH (19:53)
[2020-07-06] MEDS ORDERED: SODIUM CHLORIDE 0.9% 250ML 250 ML IV ONE (21:09)
[2020-07-06] MEDS ORDERED: NORepinephrine/NS 4 MG-250 ML 4 MG/250 ML BAG IV ONE (22:01)
[2020-07-06] MEDS: NORepinephrine/NS 4 MG-250 ML 4 MG/250 ML BAG IV SCH (22:18)
[2020-07-07] MEDS ORDERED: DOPamine/D5W 800 MG/250 ML 800 MG/250 ML BAG IV ONE (03:51)
[2020-07-07] MEDS ORDERED: DOPamine/D5W 800 MG/250 ML 800 MG/250 ML BAG IV SCH (04:00)
[2020-07-07] MEDS ORDERED: fentaNYL DRIP Premix 2,000 MCG/100 ML BAG IV ONE ×2 (05:15→15:42)
[2020-07-07] MEDS: fentaNYL DRIP Premix 2,000 MCG/100 ML BAG IV SCH (05:16)
[2020-07-07 05:33] LABS: ABG Base Excess 3.3 mmol/L (-2.0-3.0); ABG HCO3 28.9 mmol/L (20.0-26.0); ABG Methemoglobin 0.4 % (0.0-1.5); ABG Oxygen Saturation 94.5 % (95.0-99.0); ABG PCO2 48.5 mm Hg; ABG PH 7.393 pH Units (7.350-7.450); ABG PO2 70.8 mm Hg (80.0-90.0)
[2020-07-07 05:45] LABS: Hematocrit 38.2 % (30.3-42.9); Hemoglobin 11.8 gm/dl (10.1-14.3); Mean Corpuscular HGB Conc 31 % (30-34); Mean Corpuscular Volume 98 fl (79-97); Platelet Count 201 K/mm3 (140-440); Red Cell Distribution Width 19.9 % (13.2-15.2)
[2020-07-07 05:53] LABS: Blood Urea Nitrogen 16 mg/dL (7-17); Calcium 7.6 mg/dL (8.4-10.2); Hemolysis Index 40; INR 1.12 (0.87-1.13)
[2020-07-07 05:54] LABS: BUN/Creatinine Ratio 32
[2020-07-07] MEDS: DEXTROSE 5% IN WATER 1,000 ML IV SCH (06:39)
[2020-07-07 06:50] LABS: Anisocytosis 1+; Basophils % (Manual) 0 % (0.0-1.8); Eosinophils % (Manual) 0 % (0.0-4.3); Macrocytosis Few; Monocytes % (Manual) 0 % (0.0-7.3); Total Cells Counted 100
[2020-07-07 06:51] LABS: Ovalocytes Rare; Platelet Estimate Consistent w Auto; Schistocytes Rare
[2020-07-07] MEDS ORDERED: NORepinephrine/NS 4 MG-250 ML 4 MG/250 ML BAG IV ONE ×3 (08:48→19:33)
[2020-07-07] MEDS ORDERED: FAMOTIDINE 20 MG/2 ML INJ IV ONE ×2 (10:15→22:04)
[2020-07-07] MEDS: FAMOTIDINE 20 MG/2 ML INJ IV SCH ×2 (10:19→22:07)
[2020-07-07] MEDS ORDERED: fentaNYL 100 MCG/2 ML INJ ONE (11:25)
[2020-07-07] MEDS ORDERED: fentaNYL 100 MCG/2 ML INJ IV SCH (11:25)
--- NOTE | 2020-07-07 11:41 | Progress Note ---
Assessment and Plan Hx of Paroxysmal Atrial flutter/afib/MAT not on anticoagulation secondary to history of melena and anemia. 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 She did undergo PCI of the mid LAD using bare metal stent. Altered mental status -reason for admission initial head CT scan showed small 1 cm parenchymal hemorrhage in the left parietal juxtacortical region. Chest CTA negative for PE Respiratory failure negative for COVID 19 COPD on home oxygen Hypothyroidism TSH at 15.1 Recommend: Medical therapy for underlying coronary artery disease and paroxysmal atrial fibrillation when able to tolerate. Subjective Date of service: 07/07/20 Interval history: Patient remains intubated on mechanical ventilation and on pressors for support. Stable sinus rhythm on telemetry. Objective Vital Signs Temp Pulse Resp BP BP Pulse Ox 07/07/20 09:15 71 16 150/89 94 07/07/20 09:00 72 17 139/63 95 07/07/20 08:46 91 H 14 68/32 85 07/07/20 08:30 74 17 146/72 91 07/07/20 08:28 73 144/68 93 07/07/20 08:15 71 16 144/65 90 07/07/20 08:00 72 16 149/68 85 07/07/20 07:45 71 15 133/64 89 07/07/20 07:30 74 17 146/63 92 07/07/20 07:15 72 16 142/61 90 07/07/20 07:00 73 17 130/81 91 07/07/20 06:45 71 17 132/69 90 07/07/20 06:30 98.3 F 72 15 137/62 94 07/07/20 06:16 77 17 98/58 94 07/07/20 06:00 69 15 102/46 07/07/20 05:45 68 15 105/51 93 07/07/20 05:30 64 15 109/50 07/07/20 05:16 52 L 16 132/65 07/07/20 05:00 53 L 16 132/62 94 07/07/20 04:46 53 L 14 143/57 96 07/07/20 04:30 77 16 143/57 88 07/07/20 04:15 54 L 16 140/66 97 07/07/20 04:12 54 L 96 07/07/20 04:00 52 L 15 138/67 94 07/07/20 03:45 49 L 16 135/64 96 07/07/20 03:30 60 15 96/41 07/07/20 03:15 61 16 96/49 07/07/20 03:00 61 16 98/48 07/07/20 02:45 61 16 102/46 07/07/20 02:30 65 15 97/51 07/07/20 02:15 63 15 92/46 07/07/20 02:00 62 16 99/42 07/07/20 01:45 65 15 86/53 07/07/20 01:30 65 14 105/45 07/07/20 01:16 62 15 95/51 07/07/20 01:00 66 16 95/51 96 07/07/20 00:45 67 16 88/65 95 07/07/20 00:30 67 16 97/65 91 07/07/20 00:15 65 14 97/36 07/07/20 00:00 65 16 107/41 98 07/06/20 23:45 63 16 109/43 07/06/20 23:30 75 18 111/45 92 07/06/20 23:15 65 15 104/47 07/06/20 23:00 70 16 106/44 07/06/20 22:45 93 H 16 109/59 93 07/06/20 22:30 78 16 83/43 95 07/06/20 22:15 65 17 83/43 95 07/06/20 22:00 65 16 86/38 95 07/06/20 21:45 69 16 99/45 95 07/06/20 21:30 95 H 16 101/59 95 07/06/20 21:16 80 14 101/59 95 07/06/20 21:15 69 16 101/59 07/06/20 21:10 103 H 101/59 80 L 07/06/20 21:00 97.1 F L 62 16 89/42 89/43 97 07/06/20 20:58 63 16 83/41 97 07/06/20 20:30 66 16 83/39 97 07/06/20 19:55 101 H 12 102/74 96 07/06/20 19:30 84 16 112/43 07/06/20 16:03 70 89/43 99 07/06/20 13:55 68 16 101/44 98 07/06/20 12:09 87 92/44 99 - Physical Examination General: Other (intubated on the vent) Cardiac: Positive: Reg Rate and Rhythm - Labs and Meds Cardiac Enzymes 07/06/20 Range/Units Unknown AST 13 (5-40) units/L Coagulation 07/07/20 Range/Units 05:15 PT 14.5 (12.2-14.9) Sec. INR 1.12 (0.87-1.13) CBC 07/06/20 07/07/20 Range/Units 11:09 05:15 WBC 9.7 9.8 (4.5-11.0) K/mm3 RBC 4.29 3.90 (3.65-5.03) M/mm3 Hgb 13.1 11.8 (10.1-14.3) gm/dl Hct 43.0 H 38.2 (30.3-42.9) % Plt Count 185 201 (140-440) K/mm3 Lymph # (Auto) 0.7 L (1.2-5.4) K/mm3 Comprehensive Metabolic Panel 07/06/20 07/07/20 Range/Units Unknown 05:15 Sodium 144 143 (137-145) mmol/L Potassium 3.5 L 3.8 (3.6-5.0) mmol/L Chloride 110.4 H 106.5 (98-107) mmol/L Carbon Dioxide 29 29 (22-30) mmol/L BUN 19 H 16 (7-17) mg/dL Creatinine 0.4 L 0.5 L (0.6-1.2) mg/dL Glucose 101 H 92 (65-100) mg/dL Calcium 7.2 L 7.6 L (8.4-10.2) mg/dL AST 13 (5-40) units/L ALT 10 (7-56) units/L Alkaline Phosphatase 71 (35-129) units/L Total Protein 4.4 L (6.3-8.2) g/dL Albumin 2.2 L (3.9-5) g/dL
--- NOTE | 2020-07-07 11:45 | Progress Note ---
Assessment and Plan 59 y/o female admitted with altered mental state and acute respiratory failure, etiology of both unknown found to have elevated TSH. 1. Ordered PRN bolus of fent to help with agitated state right now. Asked nursing to stop dopamine. Wean Levophed for MAPs greater >65 2. Free T4 was normal. But now patient is hypotensive. Suggest a trial of Stress dose steroids. Will give hydrocortisone 100mg IV q8 starting now. 3. Now has dark material coming from OG. Suggest holding feeds and start checking serial H/H's. need to change [id number] to at least BID PPI treatment 4. COVID negative, remove precautions if not done 5. BNP elevated, now that COVID negative, please obtain 2dEcho complete 6. Wean Fio2 for sats >88% 7. ICU nurses very familiar with this patient and we found her second MRN, she goes by Xiomara Love and has been followed by Dr. Giang and Dr. Valles and Dr. Olivia in the past. Please reach out to them to ask if they would like to see the patient and finish the critical care management. Hopeful they can merge records soon. Spoke with registration about this. CCT 31 minutes. Subjective Date of service: 07/07/20 Interval history: This patient is labeled wrong in the system. She goes by Xiomara Agarwal. S he has another MRN and they need to be merged. She was started on Dopamine and Levophed last night by [place]. I was not notified of this. She is awake and but not following commands. Agitated and biting the tube. Primary nurse off floor moving another patient. Spoke with charge and orders given. Objective Vital Signs - 12hr 07/06/20 07/07/20 07/07/20 23:45 00:00 00:15 Temperature Pulse Rate 63 65 65 Respiratory 16 16 14 Rate Blood Pressure 109/43 107/41 97/36 O2 Sat by Pulse 98 Oximetry 07/07/20 07/07/20 07/07/20 00:30 00:45 01:00 Temperature Pulse Rate 67 67 66 Respiratory 16 16 16 Rate Blood Pressure 97/65 88/65 95/51 O2 Sat by Pulse 91 95 96 Oximetry 07/07/20 07/07/20 07/07/20 01:16 01:30 01:45 Temperature Pulse Rate 62 65 65 Respiratory 15 14 15 Rate Blood Pressure 95/51 105/45 86/53 O2 Sat by Pulse Oximetry 07/07/20 07/07/20 07/07/20 02:00 02:15 02:30 Temperature Pulse Rate 62 63 65 Respiratory 16 15 15 Rate Blood Pressure 99/42 92/46 97/51 O2 Sat by Pulse Oximetry 07/07/20 07/07/20 07/07/20 02:45 03:00 03:15 Temperature Pulse Rate 61 61 61 Respiratory 16 16 16 Rate Blood Pressure 102/46 98/48 96/49 O2 Sat by Pulse Oximetry 07/07/20 07/07/20 07/07/20 03:30 03:45 04:00 Temperature Pulse Rate 60 49 L 52 L Respiratory 15 16 15 Rate Blood Pressure 96/41 135/64 138/67 O2 Sat by Pulse 96 94 Oximetry 07/07/20 07/07/20 07/07/20 04:12 04:15 04:30 Temperature Pulse Rate 54 L 54 L 77 Respiratory 16 16 Rate Blood Pressure 140/66 143/57 O2 Sat by Pulse 96 97 88 Oximetry 07/07/20 07/07/20 07/07/20 04:46 05:00 05:16 Temperature Pulse Rate 53 L 53 L 52 L Respiratory 14 16 16 Rate Blood Pressure 143/57 132/62 132/65 O2 Sat by Pulse 96 94 Oximetry 07/07/20 07/07/20 07/07/20 05:30 05:45 06:00 Temperature Pulse Rate 64 68 69 Respiratory 15 15 15 Rate Blood Pressure 109/50 105/51 102/46 O2 Sat by Pulse 93 Oximetry 07/07/20 07/07/20 07/07/20 06:16 06:30 06:45 Temperature 98.3 F Pulse Rate 77 72 71 Respiratory 17 15 17 Rate Blood Pressure 98/58 137/62 132/69 O2 Sat by Pulse 94 94 90 Oximetry 07/07/20 07/07/20 07/07/20 07:00 07:15 07:30 Temperature Pulse Rate 73 72 74 Respiratory 17 16 17 Rate Blood Pressure 130/81 142/61 146/63 O2 Sat by Pulse 91 90 92 Oximetry 07/07/20 07/07/20 07/07/20 07:45 08:00 08:15 Temperature Pulse Rate 71 72 71 Respiratory 15 16 16 Rate Blood Pressure 133/64 149/68 144/65 O2 Sat by Pulse 89 85 90 Oximetry 07/07/20 07/07/20 07/07/20 08:28 08:30 08:46 Temperature Pulse Rate 73 74 91 H Respiratory 17 14 Rate Blood Pressure 144/68 146/72 68/32 O2 Sat by Pulse 93 91 85 Oximetry 07/07/20 07/07/20 09:00 09:15 Temperature Pulse Rate 72 71 Respiratory 17 16 Rate Blood Pressure 139/63 150/89 O2 Sat by Pulse 95 94 Oximetry Constitutional: alert, agitated Eyes: non-icteric ENT: other (orally intubated) Neck: supple Effort: very labored Ascultation: Bilateral: diminished breath sounds Percussion: Bilateral: not dull Cardiovascular: other (sinus tach) Gastrointestinal: normoactive bowel sounds, soft Neurologic: other (eyes open, but does not follow commands, very agitated) CBC and BMP: 07/07/20 05:15 07/07/20 05:15 ABG, PT/INR, D-dimer: ABG ABG pH 7.393 pH Units (7.350-7.450) 07/07/20 04:55 POC ABG pCO2 20.7 mmHg (32.0-48.0) L 07/06/20 06:58 ABG pCO2 48.5 mm Hg 07/07/20 04:55 ABG pO2 70.8 mm Hg (80.0-90.0) L 07/07/20 04:55 POC ABG HCO3 17.0 07/06/20 06:58 ABG O2 Saturation 94.5 % (95.0-99.0) L 07/07/20 04:55 PT/INR, D-dimer PT 14.5 Sec. (12.2-14.9) 07/07/20 05:15 INR 1.12 (0.87-1.13) 07/07/20 05:15 D-Dimer 1298.20 ng/mlDDU (0-234) H 07/05/20 23:06 Abnormal lab findings: Abnormal Labs 07/05/20 07/05/20 07/05/20 22:55 23:06 23:06 Hct MCV RDW Lymph % (Auto) [place] % (Auto) Lymph # (Auto) [place] # (Auto) Seg Neutrophils % Seg Neuts % (Manual) Nucleated RBC % Seg Neutrophils # PT 15.2 H INR 1.18 H D-Dimer 1298.20 H ABG pH POC ABG pCO2 ABG pO2 227.3 H ABG HCO3 31.3 H ABG O2 Saturation 99.3 H ABG Base Excess 5.8 H ABG Hemoglobin ABG Sodium ABG Glucose Oxyhemoglobin Potassium Chloride BUN 31 H Creatinine Glucose POC Glucose Calcium 7.7 L Lactate Dehydrogenase 217 H Troponin T 0.032 H C-Reactive Protein 1.60 H NT-Pro-B Natriuret Pep Total Protein 5.2 L Albumin 2.6 L LDL Cholesterol Direct 43 L TSH Arterial Blood Glucose Arterial Blood Ionized Calcium Salicylates Acetaminophen 07/05/20 07/05/20 07/05/20 23:06 23:06 23:06 Hct MCV RDW Lymph % (Auto) [place] % (Auto) Lymph # (Auto) [place] # (Auto) Seg Neutrophils % Seg Neuts % (Manual) Nucleated RBC % Seg Neutrophils # PT INR D-Dimer ABG pH POC ABG pCO2 ABG pO2 ABG HCO3 ABG O2 Saturation ABG Base Excess ABG Hemoglobin ABG Sodium ABG Glucose Oxyhemoglobin Potassium Chloride BUN Creatinine Glucose POC Glucose Calcium Lactate Dehydrogenase Troponin T C-Reactive Protein NT-Pro-B Natriuret Pep Total Protein Albumin LDL Cholesterol Direct TSH 15.130 H Arterial Blood Glucose Arterial Blood Ionized Calcium Salicylates < 0.3 L Acetaminophen < 5.0 L 07/05/20 07/05/20 07/06/20 23:06 23:42 06:58 Hct MCV 98 H RDW 19.8 H Lymph % (Auto) [place] % (Auto) 15.9 H Lymph # (Auto) 0.9 L [place] # (Auto) 1.0 H Seg Neutrophils % Seg Neuts % (Manual) Nucleated RBC % Seg Neutrophils # PT INR D-Dimer ABG pH 7.533 H POC ABG pCO2 20.7 L ABG pO2 ABG HCO3 ABG O2 Saturation ABG Base Excess ABG Hemoglobin 7.6 L ABG Sodium 132.3 L ABG Glucose 55 L Oxyhemoglobin Potassium Chloride BUN Creatinine Glucose POC Glucose Calcium Lactate Dehydrogenase 217 H Troponin T C-Reactive Protein 1.60 H NT-Pro-B Natriuret Pep Total Protein Albumin LDL Cholesterol Direct TSH Arterial Blood Glucose 55 L Arterial Blood Ionized Calcium 4.3 L Salicylates Acetaminophen 07/06/20 07/06/20 07/06/20 11:09 11:09 17:46 Hct 43.0 H MCV 100 H RDW 20.8 H Lymph % (Auto) 7.2 L [place] % (Auto) 11.4 H Lymph # (Auto) 0.7 L [place] # (Auto) 1.1 H Seg Neutrophils % 81.3 H Seg Neuts % (Manual) Nucleated RBC % Seg Neutrophils # 7.9 H PT INR D-Dimer ABG pH POC ABG pCO2 ABG pO2 ABG HCO3 ABG O2 Saturation ABG Base Excess ABG Hemoglobin ABG Sodium ABG Glucose Oxyhemoglobin Potassium Chloride BUN Creatinine Glucose POC Glucose 43 L Calcium Lactate Dehydrogenase Troponin T C-Reactive Protein NT-Pro-B Natriuret Pep 49693 H Total Protein Albumin LDL Cholesterol Direct TSH Arterial Blood Glucose Arterial Blood Ionized Calcium Salicylates Acetaminophen 07/06/20 07/06/20 07/07/20 19:31 Unknown 04:55 Hct MCV RDW Lymph % (Auto) [place] % (Auto) Lymph # (Auto) [place] # (Auto) Seg Neutrophils % Seg Neuts % (Manual) Nucleated RBC % Seg Neutrophils # PT INR D-Dimer ABG pH POC ABG pCO2 ABG pO2 70.8 L ABG HCO3 28.9 H ABG O2 Saturation 94.5 L ABG Base Excess 3.3 H ABG Hemoglobin 11.6 L ABG Sodium ABG Glucose Oxyhemoglobin 92.7 L Potassium 3.5 L Chloride 110.4 H BUN 19 H Creatinine 0.4 L Glucose 101 H POC Glucose < 40 L Calcium 7.2 L Lactate Dehydrogenase Troponin T C-Reactive Protein NT-Pro-B Natriuret Pep Total Protein 4.4 L Albumin 2.2 L LDL Cholesterol Direct TSH Arterial Blood Glucose Arterial Blood Ionized Calcium Salicylates Acetaminophen 07/07/20 07/07/20 05:15 05:15 Hct MCV 98 H RDW 19.9 H Lymph % (Auto) [place] % (Auto) Lymph # (Auto) [place] # (Auto) Seg Neutrophils % Seg Neuts % (Manual) 76.0 H Nucleated RBC % 1.0 H Seg Neutrophils # PT INR D-Dimer ABG pH POC ABG pCO2 ABG pO2 ABG HCO3 ABG O2 Saturation ABG Base Excess ABG Hemoglobin ABG Sodium ABG Glucose Oxyhemoglobin Potassium Chloride BUN Creatinine 0.5 L Glucose POC Glucose Calcium 7.6 L Lactate Dehydrogenase Troponin T C-Reactive Protein NT-Pro-B Natriuret Pep Total Protein Albumin LDL Cholesterol Direct TSH Arterial Blood Glucose Arterial Blood Ionized Calcium Salicylates Acetaminophen
[2020-07-07] MEDS ORDERED: HYDROCORTISONE SOD SUCC 100 MG/2 ML VIAL IV ONE (12:00)
--- NOTE | 2020-07-07 12:45 | Progress Note ---
Assessment and Plan Assessment and plan: (1) Acute encephalopathy Current Visit: Yes Status: Acute Plan to address problem: Etiology is unclear possibly secondary to underlying infection versus cerebral hemorrhage. Will monitor mental status. Neurosurgeon has been consulted for the cerebral hemorrhage. (2) Acute respiratory failure Current Visit: Yes Status: Acute Qualifiers: Respiratory failure complication: hypoxia Qualified Code(s): J96.01 - Acute respiratory failure with hypoxia Plan to address problem: Patient currently intubated and sedated. Pulmonary/critical care is following (3) Intracranial hemorrhage Current Visit: Yes Status: Acute Plan to address problem: Repeat CAT scan noted. Neurosurgeon following. (4) Suspected 2019 novel coronavirus infection Current Visit: Yes Status: Acute Plan to address problem: Covid test is negative (5) DVT prophylaxis Current Visit: Yes Status: Acute Plan to address problem: Patient placed on sequential compression device. (6) Full code status Current Visit: Yes Status: Acute 07/07/2020; patient was evaluated by ID and IV antibiotics discontinued. Pulmonary critical care is following. Neurosurgeon consulted in the emergency department and will follow the patient. Patient is still intubated and sedated and on mechanical ventilation, patient is still in the ED and will be transferred to ICU. Patient had episode of hypoglycemia yesterday and was treated according to hypoglycemia protocol. Patient was evaluated by cardiology for history paroxysmal A. fib and patient is not a candidate for anticoagulation because of anemia. The high probability of a clinically significant, sudden or life threatening deterioration of the [respiratory, neurology] system(s) required my full and direct attention, intervention and personal management. The aggregate critical care time was [35] minutes. This time is in addition to time spent performing reported procedures but includes the following: [x] Data Review and interpretation [x] Patient assessment and monitoring of vital signs [x] Documentation [x] Medication orders and management History Interval history: Patient was seen and evaluated this morning Patient is intubated and sedated Hospitalist Physical - Physical exam Narrative exam: Intubated and sedated The patient appeared well nourished and normally developed. Vital signs as documented. Head exam is unremarkable. No scleral icterus . Neck is without jugular venous distension, thyromegaly, or carotid bruits. Lungs are clear to auscultation. Cardiac exam reveals regular rate and Rhythm. Abdominal exam reveals normal bowel sounds, nontender, no organomegaly. Extremities are nonedematous and both femoral and pedal pulses are normal. 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 - Constitutional Vitals: Temp Pulse Resp BP Pulse Ox 98.3 F 71 16 150/89 94 07/07/20 06:30 07/07/20 09:15 07/07/20 09:15 07/07/20 09:15 07/07/20 09:15 General appearance: Present: other (intubated on the vent) HEART Score - HEART Score Troponin: Troponin T 0.032 ng/mL (0.00-0.029) H 07/05/20 23:06 Results - Labs CBC & Chem 7: 07/07/20 05:15 07/07/20 05:15 Labs: Laboratory Last Values WBC 9.8 K/mm3 (4.5-11.0) 07/07/20 05:15 RBC 3.90 M/mm3 (3.65-5.03) 07/07/20 05:15 Hgb 11.8 gm/dl (10.1-14.3) 07/07/20 05:15 Hct 38.2 % (30.3-42.9) 07/07/20 05:15 MCV 98 fl (79-97) H 07/07/20 05:15 MCH 30 pg (28-32) 07/07/20 05:15 MCHC 31 % (30-34) 07/07/20 05:15 RDW 19.9 % (13.2-15.2) H 07/07/20 05:15 Plt Count 201 K/mm3 (140-440) 07/07/20 05:15 Lymph % (Auto) 7.2 % (13.4-35.0) L 07/06/20 11:09 Rooks % (Auto) Golf Course Manager 07/07/20 05:15 Eos % (Auto) 0.0 % (0.0-4.3) 07/06/20 11:09 Baso % (Auto) 0.1 % (0.0-1.8) 07/06/20 11:09 Lymph # (Auto) 0.7 K/mm3 (1.2-5.4) L 07/06/20 11:09 Rooks # (Auto) 1.1 K/mm3 (0.0-0.8) H 07/06/20 11:09 Eos # (Auto) 0.0 K/mm3 (0.0-0.4) 07/06/20 11:09 Baso # (Auto) 0.0 K/mm3 (0.0-0.1) 07/06/20 11:09 Add Manual Diff Complete 07/07/20 05:15 Total Counted 100 07/07/20 05:15 Seg Neutrophils % 81.3 % (40.0-70.0) H 07/06/20 11:09 Seg Neuts % (Manual) 76.0 % (40.0-70.0) H 07/07/20 05:15 Band Neutrophils % 0 % 07/07/20 05:15 Lymphocytes % (Manual) 24.0 % (13.4-35.0) 07/07/20 05:15 Reactive Lymphs % (Man) 0 % 07/07/20 05:15 Monocytes % (Manual) 0 % (0.0-7.3) 07/07/20 05:15 Eosinophils % (Manual) 0 % (0.0-4.3) 07/07/20 05:15 Basophils % (Manual) 0 % (0.0-1.8) 07/07/20 05:15 Metamyelocytes % 0 % 07/07/20 05:15 Myelocytes % 0 % 07/07/20 05:15 Promyelocytes % 0 % 07/07/20 05:15 Blast Cells % 0 % 07/07/20 05:15 Nucleated RBC % 1.0 % (0.0-0.9) H 07/07/20 05:15 Seg Neutrophils # 7.9 K/mm3 (1.8-7.7) H 07/06/20 11:09 Seg Neutrophils # Man 7.4 K/mm3 (1.8-7.7) 07/07/20 05:15 Band Neutrophils # 0.0 K/mm3 07/07/20 05:15 Lymphocytes # (Manual) 2.4 K/mm3 (1.2-5.4) 07/07/20 05:15 Abs React Lymphs (Man) 0.0 K/mm3 07/07/20 05:15 Monocytes # (Manual) 0.0 K/mm3 (0.0-0.8) 07/07/20 05:15 Eosinophils # (Manual) 0.0 K/mm3 (0.0-0.4) 07/07/20 05:15 Basophils # (Manual) 0.0 K/mm3 (0.0-0.1) 07/07/20 05:15 Metamyelocytes # 0.0 K/mm3 07/07/20 05:15 Myelocytes # 0.0 K/mm3 07/07/20 05:15 Promyelocytes # 0.0 K/mm3 07/07/20 05:15 Blast Cells # 0.0 K/mm3 07/07/20 05:15 WBC Morphology Not Reportable 07/07/20 05:15 Hypersegmented Neuts Not Reportable 07/07/20 05:15 Hyposegmented Neuts Not Reportable 07/07/20 05:15 Hypogranular Neuts Not Reportable 07/07/20 05:15 Smudge Cells Not Reportable 07/07/20 05:15 Toxic Granulation Not Reportable 07/07/20 05:15 Toxic Vacuolation Not Reportable 07/07/20 05:15 Dohle Bodies Not Reportable 07/07/20 05:15 Pelger-Huet Anomaly Not Reportable 07/07/20 05:15 Marissa Rods Not Reportable 07/07/20 05:15 Platelet Estimate Consistent w auto 07/07/20 05:15 Clumped Platelets Not Reportable 07/07/20 05:15 Plt Clumps, EDTA Not Reportable 07/07/20 05:15 Large Platelets Not Reportable 07/07/20 05:15 Giant Platelets Not Reportable 07/07/20 05:15 Platelet Satelliting Not Reportable 07/07/20 05:15 Plt Morphology Comment Not Reportable 07/07/20 05:15 RBC Morphology Not Reportable 07/07/20 05:15 Dimorphic RBCs Not Reportable 07/07/20 05:15 Polychromasia Not Reportable 07/07/20 05:15 Hypochromasia Not Reportable 07/07/20 05:15 Poikilocytosis Not Reportable 07/07/20 05:15 Anisocytosis 1+ 07/07/20 05:15 Microcytosis Not Reportable 07/07/20 05:15 Macrocytosis Few 07/07/20 05:15 Spherocytes Not Reportable 07/07/20 05:15 Pappenheimer Bodies Not Reportable 07/07/20 05:15 Sickle Cells Not Reportable 07/07/20 05:15 Target Cells Not Reportable 07/07/20 05:15 Tear Drop Cells Not Reportable 07/07/20 05:15 Ovalocytes Rare 07/07/20 05:15 Helmet Cells Not Reportable 07/07/20 05:15 Griggs-Homecroft Bodies Not Reportable 07/07/20 05:15 Alderson Rings Not Reportable 07/07/20 05:15 [place] Cells Not Reportable 07/07/20 05:15 Bite Cells Not Reportable 07/07/20 05:15 Crenated Cell Not Reportable 07/07/20 05:15 Elliptocytes Not Reportable 07/07/20 05:15 Acanthocytes (Spur) Not Reportable 07/07/20 05:15 Rouleaux Not Reportable 07/07/20 05:15 Hemoglobin C Crystals Not Reportable 07/07/20 05:15 Schistocytes Rare 07/07/20 05:15 Malaria parasites Not Reportable 07/07/20 05:15 Ab Bodies Not Reportable 07/07/20 05:15 Hem Pathologist Commnt No 07/07/20 05:15 PT 14.5 Sec. (12.2-14.9) 07/07/20 05:15 INR 1.12 (0.87-1.13) 07/07/20 05:15 APTT 30.8 Sec. (24.2-36.6) 07/05/20 23:06 D-Dimer 1298.20 ng/mlDDU (0-234) H 07/05/20 23:06 ABG pH 7.393 pH Units (7.350-7.450) 07/07/20 04:55 POC ABG pCO2 20.7 mmHg (32.0-48.0) L 07/06/20 06:58 ABG pCO2 48.5 mm Hg 07/07/20 04:55 ABG pO2 70.8 mm Hg (80.0-90.0) L 07/07/20 04:55 POC ABG HCO3 17.0 07/06/20 06:58 ABG HCO3 28.9 mmol/L (20.0-26.0) H 07/07/20 04:55 ABG O2 Saturation 94.5 % (95.0-99.0) L 07/07/20 04:55 ABG O2 Content 15.2 (0.0-44) 07/07/20 04:55 POC ABG Base Excess -4.7 07/06/20 06:58 ABG Base Excess 3.3 mmol/L (-2.0-3.0) H 07/07/20 04:55 ABG Hemoglobin 11.6 gm/dl (12.0-16.0) L 07/07/20 04:55 ABG Carboxyhemoglobin 1.5 % (0.0-5.0) 07/07/20 04:55 ABG Methemoglobin 0.4 % (0.0-1.5) 07/07/20 04:55 ABG Sodium 132.3 mmol/L (136.0-145.0) L 07/06/20 06:58 ABG Potassium 4.1 mmol/L (3.40-4.50) 07/06/20 06:58 ABG Chloride 105.0 mmol/L (98-107) 07/06/20 06:58 ABG Glucose 55 mg/dL (65-95) L 07/06/20 06:58 Oxyhemoglobin 92.7 % (95.0-99.0) L 07/07/20 04:55 FiO2 50 % 07/07/20 04:55 Sodium 143 mmol/L (137-145) 07/07/20 05:15 Potassium 3.8 mmol/L (3.6-5.0) 07/07/20 05:15 Chloride 106.5 mmol/L (98-107) 07/07/20 05:15 Carbon Dioxide 29 mmol/L (22-30) 07/07/20 05:15 Anion Gap 11 mmol/L 07/07/20 05:15 BUN 16 mg/dL (7-17) 07/07/20 05:15 Creatinine 0.5 mg/dL (0.6-1.2) L 07/07/20 05:15 Estimated GFR > 60 ml/min 07/07/20 05:15 BUN/Creatinine Ratio 32 % 07/07/20 05:15 Glucose 92 mg/dL (65-100) 07/07/20 05:15 POC Glucose 96 mg/dL (70-105) 07/07/20 04:45 Lactic Acid 0.80 mmol/L (0.7-2.0) 07/05/20 23:06 Calcium 7.6 mg/dL (8.4-10.2) L 07/07/20 05:15 Magnesium 2.00 mg/dL (1.7-2.3) 07/05/20 23:06 Ferritin 60.8 ng/mL (10.0-200.0) 07/05/20 23:06 Total Bilirubin 0.30 mg/dL (0.1-1.2) 07/06/20 Unknown AST 13 units/L (5-40) 07/06/20 Unknown ALT 10 units/L (7-56) 07/06/20 Unknown Alkaline Phosphatase 71 units/L (35-129) 07/06/20 Unknown Ammonia 40.0 umol/L (25-60) 07/05/20 23:06 Lactate Dehydrogenase 217 units/L (91-180) H 07/05/20 23:06 Lactate Dehydrogenase 217 units/L (91-180) H 07/05/20 23:06 Total Creatine Kinase 55 units/L (30-135) 07/05/20 23:06 Troponin T 0.032 ng/mL (0.00-0.029) H 07/05/20 23:06 C-Reactive Protein 1.60 mg/dL (0.00-1.30) H 07/05/20 23:06 C-Reactive Protein 1.60 mg/dL (0.00-1.30) H 07/05/20 23:06 NT-Pro-B Natriuret Pep 01539 pg/mL (0-900) H 07/06/20 11:09 Total Protein 4.4 g/dL (6.3-8.2) L 07/06/20 Unknown Albumin 2.2 g/dL (3.9-5) L 07/06/20 Unknown Albumin/Globulin Ratio 1.0 % 07/06/20 Unknown Triglycerides 126 mg/dL (2-149) 07/05/20 23:06 Cholesterol 109 mg/dL (50-199) 07/05/20 23:06 LDL Cholesterol Direct 43 mg/dL (50-130) L 07/05/20 23:06 HDL Cholesterol 42 mg/dL (40-59) 07/05/20 23:06 Cholesterol/HDL Ratio 2.59 % 07/05/20 23:06 Procalcitonin < 0.05 ng/mL (<0.15) 07/05/20 23:06 TSH 15.130 mlU/mL (0.270-4.200) H 07/05/20 23:06 Free T4 0.79 ng/dL (0.76-1.46) 07/06/20 11:09 Arterial Blood Glucose 55 mg/dL (65-95) L 07/06/20 06:58 Arterial Blood Ionized Calcium 4.3 mg/dL (4.6-5.3) L 07/06/20 06:58 Urine Color Mildred (Yellow) 07/05/20 Unknown Urine Turbidity Clear (Clear) 07/05/20 Unknown Urine pH 5.0 (5.0-7.0) 07/05/20 Unknown Ur Specific [place] 1.025 (1.003-1.030) 07/05/20 Unknown Urine Protein 30 mg/dl mg/dL (Negative) 07/05/20 Unknown Urine Glucose (UA) Neg mg/dL (Negative) 07/05/20 Unknown Urine Ketones Neg mg/dL (Negative) 07/05/20 Unknown Urine Blood Neg (Negative) 07/05/20 Unknown Urine Nitrite Neg (Negative) 07/05/20 Unknown Urine Bilirubin Neg (Negative) 07/05/20 Unknown Urine Urobilinogen 4.0 mg/dL (<2.0) 07/05/20 Unknown Ur Leukocyte Esterase Neg (Negative) 07/05/20 Unknown Urine WBC (Auto) 2.0 /HPF (0.0-6.0) 07/05/20 Unknown Urine RBC (Auto) 1.0 /HPF (0.0-6.0) 07/05/20 Unknown U Epithel Cells (Auto) 1.0 /HPF (0-13.0) 07/05/20 Unknown Hyaline Casts 16 /LPF 07/05/20 Unknown Urine Mucus Few /HPF 07/05/20 Unknown Salicylates < 0.3 mg/dL (2.8-20.0) L 07/05/20 23:06 Acetaminophen < 5.0 ug/mL (10.0-30.0) L 07/05/20 23:06 Plasma/Serum Alcohol < 0.01 % (0-0.07) 07/05/20 23:06 Coronavirus (PCR) Negative (Negative) 07/06/20 Unknown Blood Type O POSITIVE 07/05/20 23:10 Antibody Screen Negative 07/05/20 23:10 Microbiology: Microbiology 07/05/20 23:30 Tracheal Aspirate Sputum Culture - Preliminary 07/05/20 Unknown Urine,Catheterized - Indwelling Catheter Urine Culture - Preliminary 07/05/20 23:06 Peripheral/Venous Blood Culture - Preliminary NO GROWTH AFTER 24 HOURS 07/05/20 23:42 Peripheral/Venous Blood Culture - Preliminary NO GROWTH AFTER 24 HOURS Active Medications - Current Medications Current Medications: Generic Name Dose Route Start Last Admin Trade Name Freq PRN Reason Stop Dose Admin Acetaminophen 650 mg 07/06/20 02:44 Tylenol VA Q4H PRN Pain, Mild (1-3) Bisacodyl 10 mg 07/06/20 02:44 Dulcolax VA QDAY PRN Constipation unrelieved by MOM Dextrose 0 ml 07/06/20 19:30 07/06/20 19:25 D50w (25gm) Syringe IV 30 ml ONCE PRN Administration Hypoglycemia Famotidine 20 mg 07/06/20 10:00 07/07/20 10:19 Pepcid IV 20 mg BID LUZ MARIA Administration Fentanyl 50 mcg 07/05/20 22:08 07/06/20 01:20 Sublimaze IV 50 mcg Q10MIN PRN Administration ANALGESIA Fentanyl 100 mcg 07/07/20 11:25 07/07/20 11:32 Sublimaze IV 07/07/20 15:00 100 mcg ONCE LUZ MARIA Administration Hydralazine HCl 5 mg 07/06/20 02:30 Apresoline IV Q30MIN PRN Hypertension Hydrocortisone Sodium Succinate 100 mg 07/07/20 14:00 Solu-Cortef IV Q8HR LUZ MARIA Hydrophilic Ointment 1 applic 07/05/20 22:08 Vaseline Lip Therapy TP Q2HR PRN Dry Lips Fentanyl Citrate 2,000 mcg in 100 mls @ 3.561 mls/hr 07/05/20 23:00 07/07/20 09:05 Fentanyl Drip Premix IV 3 mcg/kg/hr TITR LUZ MARIA 10.682 mls/hr Titration Protocol 1 MCG/KG/HR Sodium Chloride 1,000 mls @ 75 mls/hr 07/06/20 02:45 07/06/20 11:02 Nacl 0.9% 1000 Ml IV 75 mls/hr DIRECT LUZ MARIA Administration Propofol 1,000 mg in 100 mls @ 2.136 mls/hr 07/06/20 04:00 07/07/20 09:24 Diprivan 10 Mg/Ml IV 10 mcg/kg/min TITR LUZ MARIA 4.273 mls/hr Administration Protocol 5 MCG/KG/MIN Dextrose 1,000 mls @ 100 mls/hr 07/06/20 20:00 07/07/20 06:39 D5w IV 100 mls/hr DIRECT LUZ MARIA Administration Norepinephrine 4 mg in 250 mls @ 7.5 mls/hr 07/06/20 22:00 07/07/20 09:05 Levophed Drip 4 Mg/Ns 250 Ml IV 14 mcg/min TITR LUZ MARIA 52.5 mls/hr Titration Protocol 2 MCG/MIN Dopamine HCl/Dextrose 800 mg in 250 mls @ 2.671 mls/hr 07/07/20 04:00 Intropin Drip 800 Mg/D5w 250 Ml IV TITR LUZ MARIA Protocol 2 MCG/KG/MIN Morphine Sulfate 2 mg 07/06/20 02:44 Morphine IV Q4H PRN Pain, Moderate (4-6) Multi-Ingred Cream/Lotion/Oil/Oint 1 applic 07/05/20 22:08 Artificial Tears Ophth Oint OU Q4HR PRN Dry Eye(s) Ondansetron HCl 4 mg 07/06/20 02:44 Zofran IV Q8H PRN N/V unrelieved by Reglan Sodium Chloride 10 ml 07/06/20 10:00 07/07/20 10:20 Sodium Chloride Flush Syringe 10 Ml IV 10 ml BID LUZ MARIA Administration Sodium Chloride 10 ml 07/06/20 02:44 Sodium Chloride Flush Syringe 10 Ml IV PRN PRN LINE FLUSH Nutrition/Malnutrition Assess - Dietary Evaluation Nutrition/Malnutrition Findings: Nutrition Notes Start: 07/06/20 09:30 Freq: Status: Active Protocol: Document 07/06/20 14:53 EN (Rec: 07/06/20 15:04 EN [id number]) Co-Sign 07/06/20 14:53 MK Nutrition Notes Need for Assessment generated from: MD Order Initial or Follow up Assessment Current Diagnosis COPD,Heart Failure,Respiratory Failure Other Pertinent Diagnosis Acute enephalopathy, COVID-19 negative, Intracranial hemorrhage Current Diet NPO Labs/Tests Reviewed Pertinent Medications Fentanyl Diprivan Height 5 ft Weight 71.214 kg [place] Body Weight (kg) 45.45 BMI 30.7 Weight Status Obese Subjective/Other Information MD consult to evaluate nutritional intake. Pt on hold in ED and is on mechanical vent. Recommend initiating TF. Burn Absent Trauma Absent Food Allergy No Current % PO Negligible #1 Nutrition Diagnosis Inadequate oral intake Etiology respiratory failure As Evidenced by Signs and Symptoms Pt unable to eat orally, pt on vent Is patient on ventilator? Yes Is Patient Ambulatory and/or Out of Bed No REE-([facility]-confined to bed) 1443.372 Calculation Used for Recommendations [facility] Additional Notes Protein: >2 g/kg IBW: >91g Fluid: 1 ml/kcal Nutrition Intervention Change Diet Order: Start TF when medically advised Nutrition Support: Promote 1.0 at 60 ml/hr (goal rate) Flush 40ml q4h Kcal 1,440 Protein (gm) 90 Fluid (mL) 1,208 Goal #1 Start TF when medically advised Goal #2 Meet at least 75% of energy and protein needs with TF Anticipated Discharge Needs: unable to determine at this time Follow-Up By: 07/08/20 Additional Comments F/u for TF start and tolerance
[2020-07-07] MEDS ORDERED: VANCOMYCIN 1,000 MG in SODIUM CHLORIDE 0.9% 500 ML 500 ML IV ONE (12:50)
--- NOTE | 2020-07-07 12:51 | Progress Note ---
Assessment and Plan Cultures: Coronavirus PCR: negative 07/05/2020 blood culture: no growth thus far 07/05/2020 tracheal aspirate culture: Usual respiratory neelima 07/05/2020 urine culture: Mixed growth A/P: 59-[facility]-old [facility] with history of CHF, COPD, gastroesophageal reflux disease, CKD, history of back surgery with spinal hardware was admitted to the hospital 07/05/2020 with altered mental status: #Shock: Unclear etiology. Will restart empiric antibiotics. No obvious infectious source identified. #Acute hypoxic respiratory failure: Pneumonia v/s pulmonary edema. BNP is elevated. Procalcitonin is low. No fever or leukocytosis. ?Aspiration pneumonitis. #Acute encephalopathy, small parenchymal hemorrhage. Recs: new hypotension, pressor requirements, restarted abx: Cefepime + Vancomycin follow up cultures Corbin Fraser MD, FACP [facility] ([facility]) O: [phone] F: [phone] Subjective Date of service: 07/07/20 Interval history: Patient now hypotensive, remains in the ED. Remains on vent. Started on pressors. Afebrile. Objective - Exam Narrative Exam: Physical Exam: Constitutional: sedated, intubated, on the vent Head, Ears, Nose: Normocephalic, atraumatic. External ears, nose normal Eyes: Conjunctivae/corneas clear. No icterus. No ptosis. Neck: intubated Oral: intubated Cardiovascular: S1, S2 + Respiratory: AE fair bilaterally and equal GI: Soft, bowel sounds + Musculoskeletal: No pedal edema, no cyanosis. Skin: No rash or abscess Hem/Lymphatic: No palpable cervical or supraclavicular nodes. No lymphangitis Psych: no agitation Neurological: sedated, intubated, on the vent, exam limited - Constitutional Vitals: Vital Signs Temp Pulse Resp BP Pulse Ox 98.3 F 71 16 150/89 94 07/07/20 06:30 07/07/20 09:15 07/07/20 09:15 07/07/20 09:15 07/07/20 09:15 Temperature -Last 24 Hours Temperature 98.3 F Temperature 97.1 F - Labs CBC & Chem 7: 07/07/20 05:15 07/07/20 05:15 Labs: Abnormal lab results 07/06/20 07/06/20 07/06/20 Range/Units 11:09 17:46 19:31 Hct 43.0 H (30.3-42.9) % MCV 100 H (79-97) fl RDW 20.8 H (13.2-15.2) % Lymph % (Auto) 7.2 L (13.4-35.0) % Lymph # (Auto) 0.7 L (1.2-5.4) K/mm3 Seg Neuts % (Manual) (40.0-70.0) % Nucleated RBC % (0.0-0.9) % ABG pO2 (80.0-90.0) mm Hg ABG HCO3 (20.0-26.0) mmol/L ABG O2 Saturation (95.0-99.0) % ABG Base Excess (-2.0-3.0) mmol/L ABG Hemoglobin (12.0-16.0) gm/dl Oxyhemoglobin (95.0-99.0) % Potassium (3.6-5.0) mmol/L Chloride (98-107) mmol/L BUN (7-17) mg/dL Creatinine (0.6-1.2) mg/dL Glucose (65-100) mg/dL POC Glucose 43 L < 40 L (70-105) mg/dL Calcium (8.4-10.2) mg/dL Total Protein (6.3-8.2) g/dL Albumin (3.9-5) g/dL 07/06/20 07/07/20 07/07/20 Range/Units Unknown 04:55 05:15 Hct (30.3-42.9) % MCV 98 H (79-97) fl RDW 19.9 H (13.2-15.2) % Lymph % (Auto) (13.4-35.0) % Lymph # (Auto) (1.2-5.4) K/mm3 Seg Neuts % (Manual) 76.0 H (40.0-70.0) % Nucleated RBC % 1.0 H (0.0-0.9) % ABG pO2 70.8 L (80.0-90.0) mm Hg ABG HCO3 28.9 H (20.0-26.0) mmol/L ABG O2 Saturation 94.5 L (95.0-99.0) % ABG Base Excess 3.3 H (-2.0-3.0) mmol/L ABG Hemoglobin 11.6 L (12.0-16.0) gm/dl Oxyhemoglobin 92.7 L (95.0-99.0) % Potassium 3.5 L (3.6-5.0) mmol/L Chloride 110.4 H (98-107) mmol/L BUN 19 H (7-17) mg/dL Creatinine 0.4 L (0.6-1.2) mg/dL Glucose 101 H (65-100) mg/dL POC Glucose (70-105) mg/dL Calcium 7.2 L (8.4-10.2) mg/dL Total Protein 4.4 L (6.3-8.2) g/dL Albumin 2.2 L (3.9-5) g/dL 07/07/20 Range/Units 05:15 Hct (30.3-42.9) % MCV (79-97) fl RDW (13.2-15.2) % Lymph % (Auto) (13.4-35.0) % Lymph # (Auto) (1.2-5.4) K/mm3 Seg Neuts % (Manual) (40.0-70.0) % Nucleated RBC % (0.0-0.9) % ABG pO2 (80.0-90.0) mm Hg ABG HCO3 (20.0-26.0) mmol/L ABG O2 Saturation (95.0-99.0) % ABG Base Excess (-2.0-3.0) mmol/L ABG Hemoglobin (12.0-16.0) gm/dl Oxyhemoglobin (95.0-99.0) % Potassium (3.6-5.0) mmol/L Chloride (98-107) mmol/L BUN (7-17) mg/dL Creatinine 0.5 L (0.6-1.2) mg/dL Glucose (65-100) mg/dL POC Glucose (70-105) mg/dL Calcium 7.6 L (8.4-10.2) mg/dL Total Protein (6.3-8.2) g/dL Albumin (3.9-5) g/dL
[2020-07-07] MEDS ORDERED: VANCOMYCIN PHARMACY TO DOSE IV SCH (13:00)
[2020-07-07] MEDS ORDERED: VANCOMYCIN/NS 1 GM/250 ML 1 GM/250 ML BAG IV SCH (13:00)
[2020-07-07] MEDS ORDERED: VANCOMYCIN 1,500 MG in SODIUM CHLORIDE 0.9% 500 ML 500 ML IV SCH (14:00)
[2020-07-07] MEDS ORDERED: D5W/LACTATED RINGERS 1,000 ML IV ONE (15:41)
[2020-07-07] MEDS ORDERED: CEFEPIME/NS 2 GM/100 ML 2 GM/100 ML BAG IV ONE (19:19)
[2020-07-07] MEDS ORDERED: HYDROCORTISONE SOD SUCC 100 MG/2 ML VIAL ONE (19:19)
[2020-07-07] MEDS: CEFEPIME/NS 2 GM/100 ML 2 GM/100 ML BAG IV SCH ×2 (19:28→22:04)
[2020-07-07] MEDS: HYDROCORTISONE SOD SUCC 100 MG/2 ML VIAL IV SCH ×2 (19:28→22:04)
[2020-07-07 19:36] LABS: Hematocrit 42.3 % (30.3-42.9); Hemoglobin 13.2 gm/dl (10.1-14.3)
[2020-07-07] MEDS: VANCOMYCIN/NS 1 GM/250 ML 1 GM/250 ML BAG IV SCH (20:10)
[2020-07-07] MEDS: NORepinephrine/NS 4 MG-250 ML 4 MG/250 ML BAG IV SCH (20:11)
[2020-07-08 00:30] LABS: Hematocrit 38.3 % (30.3-42.9); Hemoglobin 12.2 gm/dl (10.1-14.3)
[2020-07-08] MEDS ORDERED: fentaNYL DRIP Premix 2,000 MCG/100 ML BAG IV ONE (00:47)
[2020-07-08] MEDS: fentaNYL DRIP Premix 2,000 MCG/100 ML BAG IV SCH ×3 (00:52→21:34)
[2020-07-08] MEDS ORDERED: D5W/LACTATED RINGERS 0 ML IV ONE (01:39)
[2020-07-08] MEDS ORDERED: DEXTROSE 5% IN WATER 1,000 ML IV ONE (01:41)
[2020-07-08] MEDS ORDERED: NORepinephrine/NS 4 MG-250 ML 4 MG/250 ML BAG IV ONE (02:43)
[2020-07-08] MEDS: NORepinephrine/NS 4 MG-250 ML 4 MG/250 ML BAG IV SCH ×2 (02:47→13:19)
[2020-07-08] MEDS: DEXTROSE 5% IN WATER 1,000 ML IV SCH ×3 (02:48→22:46)
[2020-07-08] MEDS ORDERED: HYDROCORTISONE SOD SUCC 100 MG/2 ML VIAL ONE (03:33)
[2020-07-08] MEDS: HYDROCORTISONE SOD SUCC 100 MG/2 ML VIAL IV SCH ×2 (03:36→10:18)
[2020-07-08 03:43] LABS: ABG Base Excess 3.8 mmol/L (-2.0-3.0); ABG HCO3 29.1 mmol/L (20.0-26.0); ABG Methemoglobin 0.5 % (0.0-1.5); ABG Oxygen Saturation 96.8 % (95.0-99.0); ABG PCO2 46.7 mm Hg; ABG PH 7.412 pH Units (7.350-7.450); ABG PO2 85.5 mm Hg (80.0-90.0)
--- NOTE | 2020-07-08 08:23 | XRay Report ---
ABDOMEN ONE VIEW INDICATION / CLINICAL INFORMATION: NGT PLACEMENT. COMPARISON: None available. FINDINGS: A nasogastric tube is present with the tip superimposed over the expected position of the gastric bod y Signer Name: Grant Zurita MD FACR Signed: 07/08/2020 8:19 AM Workstation Name: [id number]
[2020-07-08] MEDS: VANCOMYCIN/NS 1 GM/250 ML 1 GM/250 ML BAG IV SCH ×2 (08:27→21:50)
[2020-07-08 08:57] LABS: Blood Urea Nitrogen 7 mg/dL (7-17); Calcium 7.7 mg/dL (8.4-10.2); Hemolysis Index 18
[2020-07-08 08:58] LABS: BUN/Creatinine Ratio 23
--- NOTE | 2020-07-08 09:25 | Progress Note ---
Assessment and Plan Assessment and plan: (1) Acute encephalopathy Current Visit: Yes Status: Acute Plan to address problem: Etiology is unclear possibly secondary to underlying infection versus cerebral hemorrhage. Will monitor mental status. Neurosurgeon has been consulted for the cerebral hemorrhage. Hypotension -Requiring pressors -She was evaluated by ID yesterday and patient was placed on IV cefepime and vancomycin -Blood cultures are negative -COVID-19 test is negative (2) Acute respiratory failure Current Visit: Yes Status: Acute Qualifiers: Respiratory failure complication: hypoxia Qualified Code(s): J96.01 - Acute respiratory failure with hypoxia Plan to address problem: Patient currently intubated and sedated. Pulmonary/critical care is following (3) Intracranial hemorrhage Current Visit: Yes Status: Acute Plan to address problem: Repeat CAT scan noted. Neurosurgeon following. Patient has right ICA stenosis and consulted vascular surgery and recommend no intervention needed. (4) Suspected 2019 novel coronavirus infection Current Visit: Yes Status: Acute Plan to address problem: Covid test is negative (5) DVT prophylaxis Current Visit: Yes Status: Acute Plan to address problem: Patient placed on sequential compression device. (6) Full code status Current Visit: Yes Status: Acute 07/07/2020; patient was evaluated by ID and IV antibiotics discontinued. Pulmonary critical care is following. Neurosurgeon consulted in the emergency department and will follow the patient. Patient is still intubated and sedated and on mechanical ventilation, patient is still in the ED and will be transferred to ICU. Patient had episode of hypoglycemia yesterday and was treated according to hypoglycemia protocol. Patient was evaluated by cardiology for history paroxysmal A. fib and patient is not a candidate for anticoagulation because of anemia. 07/07/2020; patient has hypotension yesterday and requiring pressors and that evaluated and started her on IV cefepime and vancomycin. Patient has been followed with Dr Valles and Dr. marx before. The high probability of a clinically significant, sudden or life threatening deterioration of the [respiratory, neurology] system(s) required my full and direct attention, intervention and personal management. The aggregate critical care time was [35] minutes. This time is in addition to time spent performing reported procedures but includes the following: [x] Data Review and interpretation [x] Patient assessment and monitoring of vital signs [x] Documentation [x] Medication orders and management History Interval history: Patient was seen and evaluated this morning Patient is intubated and sedated Hospitalist Physical - Physical exam Narrative exam: Intubated and sedated The patient appeared well nourished and normally developed. Vital signs as documented. Head exam is unremarkable. No scleral icterus . Neck is without jugular venous distension, thyromegaly, or carotid bruits. Lungs are clear to auscultation. Cardiac exam reveals regular rate and Rhythm. Abdominal exam reveals normal bowel sounds, nontender, no organomegaly. Extremities are nonedematous and both femoral and pedal pulses are normal. [employer]: Sedated - Constitutional Vitals: Temp Pulse Resp BP Pulse Ox 98.5 F 44 L 19 100/43 91 07/08/20 08:00 07/08/20 08:40 07/08/20 08:40 07/08/20 08:40 07/08/20 08:40 General appearance: Present: other (intubated on the vent) HEART Score - HEART Score Troponin: Troponin T 0.032 ng/mL (0.00-0.029) H 07/05/20 23:06 Results - Labs CBC & Chem 7: 07/08/20 07:31 07/08/20 07:31 Labs: Laboratory Last Values WBC 9.8 K/mm3 (4.5-11.0) 07/07/20 05:15 RBC 3.90 M/mm3 (3.65-5.03) 07/07/20 05:15 Hgb 12.0 gm/dl (10.1-14.3) 07/08/20 07:31 Hct 38.0 % (30.3-42.9) 07/08/20 07:31 MCV 98 fl (79-97) H 07/07/20 05:15 MCH 30 pg (28-32) 07/07/20 05:15 MCHC 31 % (30-34) 07/07/20 05:15 RDW 19.9 % (13.2-15.2) H 07/07/20 05:15 Plt Count 201 K/mm3 (140-440) 07/07/20 05:15 Lymph % (Auto) 7.2 % (13.4-35.0) L 07/06/20 11:09 [place] % (Auto) Sander Setter 07/07/20 05:15 Eos % (Auto) 0.0 % (0.0-4.3) 07/06/20 11:09 Baso % (Auto) 0.1 % (0.0-1.8) 07/06/20 11:09 Lymph # (Auto) 0.7 K/mm3 (1.2-5.4) L 07/06/20 11:09 [place] # (Auto) 1.1 K/mm3 (0.0-0.8) H 07/06/20 11:09 Eos # (Auto) 0.0 K/mm3 (0.0-0.4) 07/06/20 11:09 Baso # (Auto) 0.0 K/mm3 (0.0-0.1) 07/06/20 11:09 Add Manual Diff Complete 07/07/20 05:15 Total Counted 100 07/07/20 05:15 Seg Neutrophils % 81.3 % (40.0-70.0) H 07/06/20 11:09 Seg Neuts % (Manual) 76.0 % (40.0-70.0) H 07/07/20 05:15 Band Neutrophils % 0 % 07/07/20 05:15 Lymphocytes % (Manual) 24.0 % (13.4-35.0) 07/07/20 05:15 Reactive Lymphs % (Man) 0 % 07/07/20 05:15 Monocytes % (Manual) 0 % (0.0-7.3) 07/07/20 05:15 Eosinophils % (Manual) 0 % (0.0-4.3) 07/07/20 05:15 Basophils % (Manual) 0 % (0.0-1.8) 07/07/20 05:15 Metamyelocytes % 0 % 07/07/20 05:15 Myelocytes % 0 % 07/07/20 05:15 Promyelocytes % 0 % 07/07/20 05:15 Blast Cells % 0 % 07/07/20 05:15 Nucleated RBC % 1.0 % (0.0-0.9) H 07/07/20 05:15 Seg Neutrophils # 7.9 K/mm3 (1.8-7.7) H 07/06/20 11:09 Seg Neutrophils # Man 7.4 K/mm3 (1.8-7.7) 07/07/20 05:15 Band Neutrophils # 0.0 K/mm3 07/07/20 05:15 Lymphocytes # (Manual) 2.4 K/mm3 (1.2-5.4) 07/07/20 05:15 Abs React Lymphs (Man) 0.0 K/mm3 07/07/20 05:15 Monocytes # (Manual) 0.0 K/mm3 (0.0-0.8) 07/07/20 05:15 Eosinophils # (Manual) 0.0 K/mm3 (0.0-0.4) 07/07/20 05:15 Basophils # (Manual) 0.0 K/mm3 (0.0-0.1) 07/07/20 05:15 Metamyelocytes # 0.0 K/mm3 07/07/20 05:15 Myelocytes # 0.0 K/mm3 07/07/20 05:15 Promyelocytes # 0.0 K/mm3 07/07/20 05:15 Blast Cells # 0.0 K/mm3 07/07/20 05:15 WBC Morphology Not Reportable 07/07/20 05:15 Hypersegmented Neuts Not Reportable 07/07/20 05:15 Hyposegmented Neuts Not Reportable 07/07/20 05:15 Hypogranular Neuts Not Reportable 07/07/20 05:15 Smudge Cells Not Reportable 07/07/20 05:15 Toxic Granulation Not Reportable 07/07/20 05:15 Toxic Vacuolation Not Reportable 07/07/20 05:15 Dohle Bodies Not Reportable 07/07/20 05:15 Pelger-Huet Anomaly Not Reportable 07/07/20 05:15 Marissa Rods Not Reportable 07/07/20 05:15 Platelet Estimate Consistent w auto 07/07/20 05:15 Clumped Platelets Not Reportable 07/07/20 05:15 Plt Clumps, EDTA Not Reportable 07/07/20 05:15 Large Platelets Not Reportable 07/07/20 05:15 Giant Platelets Not Reportable 07/07/20 05:15 Platelet Satelliting Not Reportable 07/07/20 05:15 Plt Morphology Comment Not Reportable 07/07/20 05:15 RBC Morphology Not Reportable 07/07/20 05:15 Dimorphic RBCs Not Reportable 07/07/20 05:15 Polychromasia Not Reportable 07/07/20 05:15 Hypochromasia Not Reportable 07/07/20 05:15 Poikilocytosis Not Reportable 07/07/20 05:15 Anisocytosis 1+ 07/07/20 05:15 Microcytosis Not Reportable 07/07/20 05:15 Macrocytosis Few 07/07/20 05:15 Spherocytes Not Reportable 07/07/20 05:15 Pappenheimer Bodies Not Reportable 07/07/20 05:15 Sickle Cells Not Reportable 07/07/20 05:15 Target Cells Not Reportable 07/07/20 05:15 Tear Drop Cells Not Reportable 07/07/20 05:15 Ovalocytes Rare 07/07/20 05:15 Helmet Cells Not Reportable 07/07/20 05:15 [place] Bodies Not Reportable 07/07/20 05:15 [place] Rings Not Reportable 07/07/20 05:15 [place] Cells Not Reportable 07/07/20 05:15 Bite Cells Not Reportable 07/07/20 05:15 Crenated Cell Not Reportable 07/07/20 05:15 Elliptocytes Not Reportable 07/07/20 05:15 Acanthocytes (Spur) Not Reportable 07/07/20 05:15 Rouleaux Not Reportable 07/07/20 05:15 Hemoglobin C Crystals Not Reportable 07/07/20 05:15 Schistocytes Rare 07/07/20 05:15 Malaria parasites Not Reportable 07/07/20 05:15 Ab Bodies Not Reportable 07/07/20 05:15 Hem Pathologist Commnt No 07/07/20 05:15 PT 14.5 Sec. (12.2-14.9) 07/07/20 05:15 INR 1.12 (0.87-1.13) 07/07/20 05:15 APTT 30.8 Sec. (24.2-36.6) 07/05/20 23:06 D-Dimer 1298.20 ng/mlDDU (0-234) H 07/05/20 23:06 ABG pH 7.412 pH Units (7.350-7.450) 07/08/20 03:20 POC ABG pCO2 20.7 mmHg (32.0-48.0) L 07/06/20 06:58 ABG pCO2 46.7 mm Hg 07/08/20 03:20 ABG pO2 85.5 mm Hg (80.0-90.0) 07/08/20 03:20 POC ABG HCO3 17.0 07/06/20 06:58 ABG HCO3 29.1 mmol/L (20.0-26.0) H 07/08/20 03:20 ABG O2 Saturation 96.8 % (95.0-99.0) 07/08/20 03:20 ABG O2 Content 16.6 (0.0-44) 07/08/20 03:20 POC ABG Base Excess -4.7 07/06/20 06:58 ABG Base Excess 3.8 mmol/L (-2.0-3.0) H 07/08/20 03:20 ABG Hemoglobin 12.3 gm/dl (12.0-16.0) 07/08/20 03:20 ABG Carboxyhemoglobin 1.3 % (0.0-5.0) 07/08/20 03:20 ABG Methemoglobin 0.5 % (0.0-1.5) 07/08/20 03:20 ABG Sodium 132.3 mmol/L (136.0-145.0) L 07/06/20 06:58 ABG Potassium 4.1 mmol/L (3.40-4.50) 07/06/20 06:58 ABG Chloride 105.0 mmol/L (98-107) 07/06/20 06:58 ABG Glucose 55 mg/dL (65-95) L 07/06/20 06:58 Oxyhemoglobin 95.1 % (95.0-99.0) 07/08/20 03:20 FiO2 80 % 07/08/20 03:20 Sodium 144 mmol/L (137-145) 07/08/20 07:31 Potassium 3.8 mmol/L (3.6-5.0) 07/08/20 07:31 Chloride 108.6 mmol/L (98-107) H 07/08/20 07:31 Carbon Dioxide 29 mmol/L (22-30) 07/08/20 07:31 Anion Gap 10 mmol/L 07/08/20 07:31 BUN 7 mg/dL (7-17) 07/08/20 07:31 Creatinine 0.3 mg/dL (0.6-1.2) L 07/08/20 07:31 Estimated GFR > 60 ml/min 07/08/20 07:31 BUN/Creatinine Ratio 23 % 07/08/20 07:31 Glucose 177 mg/dL (65-100) H 07/08/20 07:31 POC Glucose 96 mg/dL (70-105) 07/07/20 04:45 Lactic Acid 0.80 mmol/L (0.7-2.0) 07/05/20 23:06 Calcium 7.7 mg/dL (8.4-10.2) L 07/08/20 07:31 Magnesium 2.00 mg/dL (1.7-2.3) 07/05/20 23:06 Ferritin 60.8 ng/mL (10.0-200.0) 07/05/20 23:06 Total Bilirubin 0.30 mg/dL (0.1-1.2) 07/06/20 Unknown AST 13 units/L (5-40) 07/06/20 Unknown ALT 10 units/L (7-56) 07/06/20 Unknown Alkaline Phosphatase 71 units/L (35-129) 07/06/20 Unknown Ammonia 40.0 umol/L (25-60) 07/05/20 23:06 Lactate Dehydrogenase 217 units/L (91-180) H 07/05/20 23:06 Lactate Dehydrogenase 217 units/L (91-180) H 07/05/20 23:06 Total Creatine Kinase 55 units/L (30-135) 07/05/20 23:06 Troponin T 0.032 ng/mL (0.00-0.029) H 07/05/20 23:06 C-Reactive Protein 1.60 mg/dL (0.00-1.30) H 07/05/20 23:06 C-Reactive Protein 1.60 mg/dL (0.00-1.30) H 07/05/20 23:06 NT-Pro-B Natriuret Pep 36216 pg/mL (0-900) H 07/06/20 11:09 Total Protein 4.4 g/dL (6.3-8.2) L 07/06/20 Unknown Albumin 2.2 g/dL (3.9-5) L 07/06/20 Unknown Albumin/Globulin Ratio 1.0 % 07/06/20 Unknown Triglycerides 126 mg/dL (2-149) 07/05/20 23:06 Cholesterol 109 mg/dL (50-199) 07/05/20 23:06 LDL Cholesterol Direct 43 mg/dL (50-130) L 07/05/20 23:06 HDL Cholesterol 42 mg/dL (40-59) 07/05/20 23:06 Cholesterol/HDL Ratio 2.59 % 07/05/20 23:06 Procalcitonin < 0.05 ng/mL (<0.15) 07/05/20 23:06 TSH 15.130 mlU/mL (0.270-4.200) H 07/05/20 23:06 Free T4 0.79 ng/dL (0.76-1.46) 07/06/20 11:09 Arterial Blood Glucose 55 mg/dL (65-95) L 07/06/20 06:58 Arterial Blood Ionized Calcium 4.3 mg/dL (4.6-5.3) L 07/06/20 06:58 Urine Color Mildred (Yellow) 07/05/20 Unknown Urine Turbidity Clear (Clear) 07/05/20 Unknown Urine pH 5.0 (5.0-7.0) 07/05/20 Unknown Ur Specific [place] 1.025 (1.003-1.030) 07/05/20 Unknown Urine Protein 30 mg/dl mg/dL (Negative) 07/05/20 Unknown Urine Glucose (UA) Neg mg/dL (Negative) 07/05/20 Unknown Urine Ketones Neg mg/dL (Negative) 07/05/20 Unknown Urine Blood Neg (Negative) 07/05/20 Unknown Urine Nitrite Neg (Negative) 07/05/20 Unknown Urine Bilirubin Neg (Negative) 07/05/20 Unknown Urine Urobilinogen 4.0 mg/dL (<2.0) 07/05/20 Unknown Ur Leukocyte Esterase Neg (Negative) 07/05/20 Unknown Urine WBC (Auto) 2.0 /HPF (0.0-6.0) 07/05/20 Unknown Urine RBC (Auto) 1.0 /HPF (0.0-6.0) 07/05/20 Unknown U Epithel Cells (Auto) 1.0 /HPF (0-13.0) 07/05/20 Unknown Hyaline Casts 16 /LPF 07/05/20 Unknown Urine Mucus Few /HPF 07/05/20 Unknown Salicylates < 0.3 mg/dL (2.8-20.0) L 07/05/20 23:06 Acetaminophen < 5.0 ug/mL (10.0-30.0) L 07/05/20 23:06 Plasma/Serum Alcohol < 0.01 % (0-0.07) 07/05/20 23:06 Coronavirus (PCR) Negative (Negative) 07/06/20 Unknown Blood Type O POSITIVE 07/05/20 23:10 Antibody Screen Negative 07/05/20 23:10 Microbiology: Microbiology 07/05/20 23:06 Peripheral/Venous Blood Culture - Preliminary NO GROWTH AFTER 48 HOURS 07/05/20 23:42 Peripheral/Venous Blood Culture - Preliminary NO GROWTH AFTER 48 HOURS 07/05/20 23:30 Tracheal Aspirate Sputum Culture - Preliminary 07/05/20 Unknown Urine,Catheterized - Indwelling Catheter Urine Culture - Preliminary Roberts/IV: Voiding Method Indwelling Catheter IV Catheter Type [Left Triple Lumen Cath Internal Jugular] Active Medications - Current Medications Current Medications: Generic Name Dose Route Start Last Admin Trade Name Freq PRN Reason Stop Dose Admin Acetaminophen 650 mg 07/06/20 02:44 Tylenol FL Q4H PRN Pain, Mild (1-3) Bisacodyl 10 mg 07/06/20 02:44 Dulcolax FL QDAY PRN Constipation unrelieved by MOM Dextrose 0 ml 07/06/20 19:30 07/06/20 19:25 D50w (25gm) Syringe IV 30 ml ONCE PRN Administration Hypoglycemia Famotidine 20 mg 07/06/20 10:00 07/07/20 22:07 Pepcid IV 20 mg BID LUZ MARIA Administration Fentanyl 50 mcg 07/05/20 22:08 07/06/20 01:20 Sublimaze IV 50 mcg Q10MIN PRN Administration ANALGESIA Hydralazine HCl 5 mg 07/06/20 02:30 Apresoline IV Q30MIN PRN Hypertension Hydrocortisone Sodium Succinate 100 mg 07/08/20 03:00 07/08/20 03:36 Solu-Cortef IV 100 mg Q8H LUZ MARIA Administration Hydrophilic Ointment 1 applic 07/05/20 22:08 Vaseline Lip Therapy TP Q2HR PRN Dry Lips Fentanyl Citrate 2,000 mcg in 100 mls @ 3.561 mls/hr 07/05/20 23:00 07/08/20 03:14 Fentanyl Drip Premix IV 2 mcg/kg/hr TITR LUZ MARIA 7.121 mls/hr Titration Protocol 1 MCG/KG/HR Sodium Chloride 1,000 mls @ 75 mls/hr 07/06/20 02:45 07/06/20 11:02 Nacl 0.9% 1000 Ml IV 75 mls/hr DIRECT LUZ MARIA Administration Propofol 1,000 mg in 100 mls @ 2.136 mls/hr 07/06/20 04:00 07/08/20 08:43 Diprivan 10 Mg/Ml IV 25 mcg/kg/min TITR LUZ MARIA 10.682 mls/hr Titration Protocol 5 MCG/KG/MIN Dextrose 1,000 mls @ 100 mls/hr 07/06/20 20:00 07/08/20 02:48 D5w IV 100 mls/hr DIRECT LUZ MARIA Administration Norepinephrine 4 mg in 250 mls @ 7.5 mls/hr 07/06/20 22:00 07/08/20 08:34 Levophed Drip 4 Mg/Ns 250 Ml IV 6 mcg/min TITR LUZ MARIA 22.5 mls/hr Titration Protocol 2 MCG/MIN Dopamine HCl/Dextrose 800 mg in 250 mls @ 2.671 mls/hr 07/07/20 04:00 Intropin Drip 800 Mg/D5w 250 Ml IV TITR LUZ MARIA Protocol 2 MCG/KG/MIN Cefepime HCl 2 gm in 100 mls @ 200 mls/hr 07/07/20 13:00 07/07/20 22:04 Cefepime/Ns 2 Gm/100 Ml IV Not Given Q12HR LUZ MARIA Protocol Vancomycin HCl 1 gm in 250 mls @ 167.007 mls/hr 07/07/20 20:00 07/08/20 08:27 Vancomycin/Ns 1 Gm/250 Ml IV 167.007 mls/hr Q12H LUZ MARIA Administration Morphine Sulfate 2 mg 07/06/20 02:44 Morphine IV Q4H PRN Pain, Moderate (4-6) Multi-Ingred Cream/Lotion/Oil/Oint 1 applic 07/05/20 22:08 Artificial Tears Ophth Oint OU Q4HR PRN Dry Eye(s) Ondansetron HCl 4 mg 07/06/20 02:44 Zofran IV Q8H PRN N/V unrelieved by Reglan Sodium Chloride 10 ml 07/06/20 10:00 07/07/20 22:07 Sodium Chloride Flush Syringe 10 Ml IV 10 ml BID LUZ MARIA Administration Sodium Chloride 10 ml 07/06/20 02:44 Sodium Chloride Flush Syringe 10 Ml IV PRN PRN LINE FLUSH Nutrition/Malnutrition Assess - Dietary Evaluation Nutrition/Malnutrition Findings: Nutrition Notes Start: 07/06/20 09:30 Freq: Status: Active Protocol: Document 07/06/20 14:53 EN (Rec: 07/06/20 15:04 EN [id number]) Co-Sign 07/06/20 14:53 MK Nutrition Notes Need for Assessment generated from: MD Order Initial or Follow up Assessment Current Diagnosis COPD,Heart Failure,Respiratory Failure Other Pertinent Diagnosis Acute enephalopathy, COVID-19 negative, Intracranial hemorrhage Current Diet NPO Labs/Tests Reviewed Pertinent Medications Fentanyl Diprivan Height 5 ft Weight 71.214 kg [place] Body Weight (kg) 45.45 BMI 30.7 Weight Status Obese Subjective/Other Information MD consult to evaluate nutritional intake. Pt on hold in ED and is on mechanical vent. Recommend initiating TF. Burn Absent Trauma Absent Food Allergy No Current % PO Negligible #1 Nutrition Diagnosis Inadequate oral intake Etiology respiratory failure As Evidenced by Signs and Symptoms Pt unable to eat orally, pt on vent Is patient on ventilator? Yes Is Patient Ambulatory and/or Out of Bed No REE-([facility]-confined to bed) [phone] Calculation Used for Recommendations [facility] Additional Notes Protein: >2 g/kg IBW: >91g Fluid: 1 ml/kcal Nutrition Intervention Change Diet Order: Start TF when medically advised Nutrition Support: Promote 1.0 at 60 ml/hr (goal rate) Flush 40ml q4h Kcal 1,440 Protein (gm) 90 Fluid (mL) 1,208 Goal #1 Start TF when medically advised Goal #2 Meet at least 75% of energy and protein needs with TF Anticipated Discharge Needs: unable to determine at this time Follow-Up By: 07/08/20 Additional Comments F/u for TF start and tolerance
--- NOTE | 2020-07-08 09:30 | Consultation ---
History of Present Illness - Reason for Consult Consult date: 07/08/20 Carotid stenosis - History of Present Illness Patient is a retirement patient currently intubated who presented with altered mental status. She was found to have chest CT findings of possible pneumonia as well as parenchymal hemorrhage. Ultrasound of her carotids were performed which demonstrates 70% stenosis of the right ICA. Past History Past Medical History: other (Back surgery based on films, but rest is not obtainable secondary to mental state) Past Surgical History: Other (back surgery for sure) Social history: other (unable to obtain) Family history: other (unable to obtain) Medications and Allergies Allergies Allergy/AdvReac Type Severity Reaction Status Date / Time clopidogrel [From Plavix] Allergy Unknown Verified 04/20/20 14:51 hydromorphone [From Dilaudid] Allergy Unknown Verified 04/20/20 14:51 phenobarbital Allergy Unknown Verified 04/20/20 14:51 Home Medications Medication Instructions Recorded Confirmed Last Taken Type ALPRAZolam [Xanax TAB] 0.25 mg PO TID PRN 07/06/20 07/06/20 Unknown History Acetaminophen [Tylenol] 650 mg PO Q6HR PRN 07/06/20 07/06/20 Unknown History Amiodarone HCl [Amiodarone 100 MG 100 mg PO BID 07/06/20 07/06/20 Unknown History TAB] Aspirin 325 mg PO QDAY 07/06/20 07/06/20 Unknown History AtorvaSTATin [Lipitor] 40 mg PO QHS 07/06/20 07/06/20 Unknown History HYDROcodone/APAP 5-325 [[place] 1 each PO Q6HR PRN 07/06/20 07/06/20 Unknown Hist ory 5/325] Ipratropium/Albuterol Sulfate 1 ampul IH Q8HR 07/06/20 07/06/20 Unknown History [DUONEB *Not for PRN Use*] Lactulose [Cephulac] 20 gm PO Q6HR 07/06/20 07/06/20 Unknown History Melatonin [Melatonin 10MG TAB] 10 mg PO QHS 07/06/20 07/06/20 Unknown History Metoprolol Tartrate [Lopressor] 50 mg PO Q8HR 07/06/20 07/06/20 Unknown History Quetiapine Fumarate [SEROquel] 300 mg PO QDAY 07/06/20 07/06/20 Unknown History Quetiapine Fumarate [SEROquel] 400 mg PO QHS 07/06/20 07/06/20 Unknown History Active Meds: Active Medications Acetaminophen (Tylenol) 650 mg OK Q4H PRN PRN Reason: Pain, Mild (1-3) Bisacodyl (Dulcolax) 10 mg [place] QDAY PRN PRN Reason: Constipation unrelieved by MOM Dextrose (D50w (25gm) Syringe) 0 ml IV ONCE PRN PRN Reason: Hypoglycemia Last Admin: 07/06/20 19:25 Dose: 30 ml Documented by: Famotidine (Pepcid) 20 mg IV BID LUZ MARIA Last Admin: 07/07/20 22:07 Dose: 20 mg Documented by: Fentanyl (Sublimaze) 50 mcg IV Q10MIN PRN PRN Reason: ANALGESIA Last Admin: 07/06/20 01:20 Dose: 50 mcg Documented by: Hydralazine HCl (Apresoline) 5 mg IV Q30MIN PRN PRN Reason: Hypertension Hydrocortisone Sodium Succinate (Solu-Cortef) 100 mg IV Q8H LUZ MARIA Last Admin: 07/08/20 03:36 Dose: 100 mg Documented by: Hydrophilic Ointment (Vaseline Lip Therapy) 1 applic TP Q2HR PRN PRN Reason: Dry Lips Fentanyl Citrate (Fentanyl Drip Premix) 2,000 mcg in 100 mls @ 3.561 mls/hr IV TITR LUZ MARIA; Protocol Last Titration: 07/08/20 03:14 Dose: 2 mcg/kg/hr, 7.121 mls/hr Documented by: Sodium Chloride (Nacl 0.9% 1000 Ml) 1,000 mls @ 75 mls/hr IV DIRECT LUZ MARIA Last Admin: 07/06/20 11:02 Dose: 75 mls/hr Documented by: Propofol (Diprivan 10 Mg/Ml) 1,000 mg in 100 mls @ 2.136 mls/hr IV TITR LUZ MARIA; Protocol Last Titration: 07/08/20 08:43 Dose: 25 mcg/kg/min, 10.682 mls/hr Documented by: Dextrose (D5w) 1,000 mls @ 100 mls/hr IV DIRECT LUZ MARIA Last Admin: 07/08/20 02:48 Dose: 100 mls/hr Documented by: Norepinephrine (Levophed Drip 4 Mg/Ns 250 Ml) 4 mg in 250 mls @ 7.5 mls/hr IV TITR [facility]; Protocol Last Titration: 07/08/20 08:34 Dose: 6 mcg/min, 22.5 mls/hr Documented by: Dopamine HCl/Dextrose (Intropin Drip 800 Mg/D5w 250 Ml) 800 mg in 250 mls @ 2.671 mls/hr IV TITR [facility]; Protocol Cefepime HCl (Cefepime/Ns 2 Gm/100 Ml) 2 gm in 100 mls @ 200 mls/hr IV Q12HR [facility]; Protocol Last Admin: 07/07/20 22:04 Dose: Not Given Documented by: Vancomycin HCl (Vancomycin/Ns 1 Gm/250 Ml) 1 gm in 250 mls @ 167.007 mls/hr IV Q12H [facility] Last Admin: 07/08/20 08:27 Dose: 167.007 mls/hr Documented by: Morphine Sulfate (Morphine) 2 mg IV Q4H PRN PRN Reason: Pain, Moderate (4-6) Multi-Ingred Cream/Lotion/Oil/Oint (Artificial Tears Ophth Oint) 1 applic OU Q4HR PRN PRN Reason: Dry Eye(s) Ondansetron HCl (Zofran) 4 mg IV Q8H PRN PRN Reason: N/V unrelieved by Reglan Sodium Chloride (Sodium Chloride Flush Syringe 10 Ml) 10 ml IV BID [facility] Last Admin: 07/07/20 22:07 Dose: 10 ml Documented by: Sodium Chloride (Sodium Chloride Flush Syringe 10 Ml) 10 ml IV PRN PRN PRN Reason: LINE FLUSH Review of Systems ROS unobtainable: due to mental status Exam - Constitutional Vitals: Temp Pulse Resp BP Pulse Ox 98.5 F 44 L 19 100/43 91 07/08/20 08:00 07/08/20 08:40 07/08/20 08:40 07/08/20 08:40 07/08/20 08:40 General appearance: Present: other (Intubated) Results - Labs CBC & Chem 7: 07/08/20 07:31 07/08/20 07:31 Labs: Abnormal lab results 07/08/20 07/08/20 Range/Units 03:20 07:31 ABG HCO3 29.1 H (20.0-26.0) mmol/L ABG Base Excess 3.8 H (-2.0-3.0) mmol/L Chloride 108.6 H (98-107) mmol/L Creatinine 0.3 L (0.6-1.2) mg/dL Glucose 177 H (65-100) mg/dL Calcium 7.7 L (8.4-10.2) mg/dL - Imaging and Cardiology CT Scan - head: report reviewed, image reviewed Assessment and Plan Patient with right ICA stenosis. Additionally, the patient has intraparenchymal hemorrhages as well as multiple other medical comorbidities on this visit. She may require further evaluation with a CTA of the neck however, no intervention is planned on this admission. If the patient stabilizes and returns to her baseline status, she may follow-up with us as an outpatient in 2 weeks.
[2020-07-08] MEDS: FAMOTIDINE 20 MG/2 ML INJ IV SCH ×2 (10:18→21:50)
[2020-07-08] MEDS: CEFEPIME/NS 2 GM/100 ML 2 GM/100 ML BAG IV SCH ×2 (10:18→22:37)
--- NOTE | 2020-07-08 11:47 | Progress Note ---
Assessment and Plan Cultures: Coronavirus PCR: negative 07/05/2020 blood culture: no growth thus far 07/05/2020 tracheal aspirate culture: Usual respiratory neelima 07/05/2020 urine culture: Mixed growth A/P: 59-year-old female prison resident with history of CHF, COPD, gastroesophageal reflux disease, CKD, history of back surgery with spinal hardware was admitted to the hospital 07/05/2020 with altered mental status: #Shock: Unclear etiology, septic shock seems less likely. Continue empiric antibiotics. No clear infectious source identified on imaging. Remains afebrile and without leucocytosis. #Acute hypoxic respiratory failure: Pneumonia v/s pulmonary edema. BNP is elevated. Procalcitonin is low. No fever or leukocytosis. ?Aspiration pneumonitis. #Acute encephalopathy, small parenchymal hemorrhage. Recs: continue empiric abx: Cefepime + Vancomycin, D2 of 5 Corbin Fraser MD, FACP [facility] ([facility]) O: [phone] F: [phone] Subjective Date of service: 07/08/20 Interval history: Patient remains on the vent. Still on pressors. Afebrile. Objective - Exam Narrative Exam: Physical Exam: Constitutional: sedated, intubated, on the vent Head, Ears, Nose: Normocephalic, atraumatic. External ears, nose normal Eyes: Conjunctivae/corneas clear. No icterus. No ptosis. Neck: intubated Oral: intubated Cardiovascular: S1, S2 + Respiratory: AE fair bilaterally and equal GI: Soft, bowel sounds + Musculoskeletal: No pedal edema, no cyanosis. Skin: No rash or abscess Hem/Lymphatic: No palpable cervical or supraclavicular nodes. No lymphangitis Psych: no agitation Neurological: sedated, intubated, on the vent, exam limited - Constitutional Vitals: Vital Signs Temp Pulse Resp BP Pulse Ox 98.5 F 50 L 20 141/62 86 07/08/20 08:00 07/08/20 11:37 07/08/20 11:30 07/08/20 11:30 07/08/20 11:30 Temperature -Last 24 Hours Temperature 98.5 F Temperature 99.5 F Temperature 98.9 F - Labs CBC & Chem 7: 07/08/20 07:31 07/08/20 07:31 Labs: Abnormal lab results 07/08/20 07/08/20 Range/Units 03:20 07:31 ABG HCO3 29.1 H (20.0-26.0) mmol/L ABG Base Excess 3.8 H (-2.0-3.0) mmol/L Chloride 108.6 H (98-107) mmol/L Creatinine 0.3 L (0.6-1.2) mg/dL Glucose 177 H (65-100) mg/dL Calcium 7.7 L (8.4-10.2) mg/dL
--- NOTE | 2020-07-08 11:47 | Progress Note ---
Assessment and Plan Hx of Paroxysmal Atrial flutter/afib/MAT not on anticoagulation secondary to history of melena and anemia. History of ID/Coronary artery disease 01/2020 echo: normal LVEF 50-55% 2017 [facility]: IN ROOM [employer] of the RCA recommend for medical therapy. She did undergo PCI of the mid LAD using bare metal stent. Altered mental status -reason for admission initial head CT scan showed small 1 cm parenchymal hemorrhage in the left parietal juxtacortical region. Chest CTA negative for PE Respiratory failure negative for COVID 19 COPD on home oxygen Hypothyroidism TSH at 15.1 Recommend: Medical therapy for underlying coronary artery disease and paroxysmal atrial fibrillation when able to tolerate. Subjective Date of service: 07/08/20 Interval history: Patient remains intubated on mechanical ventilation and on pressors for support. Sinus bradycardia, rate ranging in the 50s on telemetry. Objective Vital Signs Temp Pulse Pulse Resp BP Pulse Ox 07/08/20 11:37 50 L 07/08/20 11:30 46 L 20 141/62 86 07/08/20 11:20 53 L 20 141/62 85 07/08/20 11:10 53 L 20 120/77 84 07/08/20 11:00 65 18 141/62 92 07/08/20 10:50 53 L 20 141/62 91 07/08/20 10:40 51 L 20 137/55 91 07/08/20 10:30 49 L 20 131/52 89 07/08/20 10:20 48 L 20 131/52 90 07/08/20 10:10 50 L 20 132/56 86 07/08/20 10:00 50 L 20 132/56 86 07/08/20 09:50 50 L 20 136/62 86 07/08/20 09:40 81 11 L 140/69 83 L 07/08/20 09:30 49 L 20 140/69 94 07/08/20 09:20 49 L 20 136/61 93 07/08/20 09:10 49 L 20 135/57 93 07/08/20 09:00 46 L 20 135/57 92 07/08/20 08:50 49 L 20 132/55 85 07/08/20 08:40 44 L 19 100/43 91 07/08/20 08:30 48 L 20 100/43 89 07/08/20 08:20 51 L 20 108/49 85 07/08/20 08:10 55 L 20 128/56 86 07/08/20 08:00 98.5 F 52 L 51 L 22 128/56 88 07/08/20 07:50 54 L 20 147/81 87 07/08/20 07:40 46 L 20 135/51 96 07/08/20 07:34 47 L 134/57 96 07/08/20 07:30 45 L 20 135/51 96 07/08/20 07:20 45 L 20 135/51 97 07/08/20 07:10 44 L 20 120/57 96 07/08/20 07:00 55 L 20 76/34 99 07/08/20 06:50 58 L 20 89/40 99 07/08/20 06:40 52 L 20 113/46 98 07/08/20 06:30 51 L 20 113/45 98 07/08/20 06:20 51 L 20 113/45 98 07/08/20 06:10 51 L 20 110/49 98 07/08/20 06:00 50 L 20 110/52 98 07/08/20 05:50 51 L 20 110/52 98 07/08/20 05:40 51 L 20 110/52 98 07/08/20 05:30 50 L 20 110/52 98 07/08/20 05:20 49 L 20 110/52 98 07/08/20 05:10 49 L 20 99/39 98 07/08/20 05:03 98 07/08/20 05:00 49 L 20 103/42 98 07/08/20 04:50 50 L 20 103/42 99 07/08/20 04:40 49 L 19 85/45 100 07/08/20 04:30 51 L 20 107/51 100 07/08/20 04:22 70 93 07/08/20 04:20 63 20 107/51 85 07/08/20 04:00 99.5 F 07/08/20 03:30 47 L 20 133/54 97 07/08/20 03:16 56 L 20 133/54 99 07/08/20 03:03 98.9 F 07/08/20 03:00 48 L 20 133/54 100 07/08/20 02:46 56 L 20 132/55 100 07/08/20 02:30 50 L 20 132/55 100 07/08/20 02:16 53 L 20 132/55 100 07/08/20 02:00 55 L 20 117/49 100 07/08/20 01:46 54 L 20 117/49 100 07/08/20 01:30 55 L 20 105/48 100 07/08/20 01:15 58 L 20 105/48 99 07/08/20 01:00 52 L 20 108/48 99 07/08/20 00:46 53 L 21 108/48 99 07/08/20 00:30 52 L 20 132/55 100 07/08/20 00:16 58 L 20 139/58 99 07/08/20 00:14 55 L 20 139/58 99 07/08/20 00:00 53 L 20 139/58 99 07/07/20 23:46 54 L 20 137/57 99 07/07/20 23:30 55 L 20 137/57 99 07/07/20 23:16 54 L 20 99 07/07/20 23:00 60 20 99 07/07/20 22:46 60 19 134/57 99 07/07/20 22:30 57 L 20 134/57 99 07/07/20 22:16 62 20 126/55 100 07/07/20 22:00 60 20 126/55 100 07/07/20 21:46 61 20 144/65 100 07/07/20 21:30 61 20 144/65 98 07/07/20 21:16 55 L 20 131/53 99 07/07/20 21:00 54 L 20 131/53 99 07/07/20 20:46 92 H 17 122/53 81 L 07/07/20 20:30 53 L 19 122/53 100 07/07/20 20:21 60 123/70 90 07/07/20 20:16 52 L 20 123/70 100 07/07/20 20:00 96 H 11 L 123/70 07/07/20 19:46 83 16 133/58 90 07/07/20 19:30 85 15 133/58 87 07/07/20 19:16 96 H 15 150/62 86 07/07/20 19:00 97 H 16 150/62 86 07/07/20 15:53 81 77/37 94 07/07/20 12:30 53 L 73/38 84 - Physical Examination General: Other (intubated on the vent) Cardiac: Positive: Bradycardia - Labs and Meds CBC 07/07/20 07/08/20 07/08/20 Range/Units 19:00 00:19 07:31 Hgb 13.2 12.2 12.0 (10.1-14.3) gm/dl Hct 42.3 38.3 38.0 (30.3-42.9) % Comprehensive Metabolic Panel 07/08/20 Range/Units 07:31 Sodium 144 (137-145) mmol/L Potassium 3.8 (3.6-5.0) mmol/L Chloride 108.6 H (98-107) mmol/L Carbon Dioxide 29 (22-30) mmol/L BUN 7 (7-17) mg/dL Creatinine 0.3 L (0.6-1.2) mg/dL Glucose 177 H (65-100) mg/dL Calcium 7.7 L (8.4-10.2) mg/dL
--- NOTE | 2020-07-08 14:18 | Progress Note ---
Assessment and Plan Acute and chronic hypoxic and hypercapnic respiratory failure: Acute exacerbation of COPD Tobacco use disorder/Nicotine dependence (on going) Hypernatremia History of coronary artery disease/CHF History of HTN Chronic narcotic dependence Chronic back pain Anxiety disorder History of depression; Obesity; BMI 32.2 - repeat CXR - increased peep to 10 - wean FiO2 for target O2 sat's > 88% - isolation per facility protoocol (COVID -ve) - follow 2D ECHO report - taper systemic steroids - wean Levophed for target MAP >/= 65 mmHg - continue other care as below - complete AB's per ID rec's (Vanc & Cefepime) - continue daily SAT and SBT assessment as tolerated - continue supplemental oxygen with restrictive strategies acutely re: severe COPD (PaO2 of 60 with O2 sats 88-90% is acceptable) - VAP bundle addressed (aspiration precautions; HOB > 40 degrees) - continue bronchodilators with pulmonary hygiene per RT - Avoid benzodiazepine's, reduce the possibility of delirium - Continue with fentanyl, titrate for RASS of 0 to -1 - Maintenance of sleep-wake cycle, avoid delirium - continue enteral nutritional support at goal rate as tolerated - Accuchecks with glycemic control per SSI for target blood glucose of 140-180 mg/dL while critically ill; avoid hypoglycemia - VTE prophylaxis - Stress ulcer prophylaxis - Monitor hemodynamics closely - Avoid delirium; Avoid benzodiazepines - Nicotine withdrawal precautions, nicotine patch - In view of ongoing smoking, recurrent hospital admission, will need to re- address advance directives and goals of care, once the patient is able to be a part of that discussion. Will also address smoking cessation again, once she is able to be a part of that discussion - discharge planning ongoing concurrently - continue other care per attending / other specification consultant's .... re-evaluate in am & prn CONDITION: CRITICAL PROGNOSIS: GUARDED CODE STATUS: FULL CODE The high probability of a clinically significant, sudden or life-threatening deterioration of the respiratory, cardiovascular, neurology, endocrine] system(s) required my full and direct attention, intervention and personal management. The aggregate critical care time was [34] minutes without overlap. Time includes spent on; [x] Data Review and interpretation [x] Patient assessment and monitoring of vital signs [x] Documentation [x] Medication orders and management Subjective Date of service: 07/08/20 Principal diagnosis: Ac and ch hypoxic & hypercapnic resp failure; AE-COPD; Tobacco use disorder Interval history: Patient is seen today for: Ac and ch hypoxic hypercapnic resp failure; AE-COPD; Tobacco use disorder/Nicotine dependence; Hypernatremia; HTN (hypotensive at presentation; Chronic narcotic dependence ; Chronic back pain; Anxiety disorder Seen and examined at bedside; 24-hour events reviewed; nursing and respiratory care staff consulted; no adverse overnight events reported to me; laying in bed; remains on MVS; FiO2 at 80% with peep at 10; responsive; deniesd acute chest pain; No emesis or overt aspiration; afebrile Objective Vital Signs - 12hr 07/08/20 07/08/20 07/08/20 02:16 02:30 02:46 Temperature Pulse Rate 53 L 50 L 56 L Pulse Rate [ From Monitor] Respiratory 20 20 20 Rate Blood Pressure 132/55 132/55 132/55 O2 Sat by Pulse 100 100 100 Oximetry 07/08/20 07/08/20 07/08/20 03:00 03:03 03:16 Temperature 98.9 F Pulse Rate 48 L 56 L Pulse Rate [ From Monitor] Respiratory 20 20 Rate Blood Pressure 133/54 133/54 O2 Sat by Pulse 100 99 Oximetry 07/08/20 07/08/20 07/08/20 03:30 04:00 04:20 Temperature 99.5 F Pulse Rate 47 L 63 Pulse Rate [ From Monitor] Respiratory 20 20 Rate Blood Pressure 133/54 107/51 O2 Sat by Pulse 97 85 Oximetry 07/08/20 07/08/20 07/08/20 04:22 04:30 04:40 Temperature Pulse Rate 70 51 L 49 L Pulse Rate [ From Monitor] Respiratory 20 19 Rate Blood Pressure 107/51 85/45 O2 Sat by Pulse 93 100 100 Oximetry 07/08/20 07/08/20 07/08/20 04:50 05:00 05:03 Temperature Pulse Rate 50 L 49 L Pulse Rate [ From Monitor] Respiratory 20 20 Rate Blood Pressure 103/42 103/42 O2 Sat by Pulse 99 98 98 Oximetry 07/08/20 07/08/20 07/08/20 05:10 05:20 05:30 Temperature Pulse Rate 49 L 49 L 50 L Pulse Rate [ From Monitor] Respiratory 20 20 20 Rate Blood Pressure 99/39 110/52 110/52 O2 Sat by Pulse 98 98 98 Oximetry 07/08/20 07/08/20 07/08/20 05:40 05:50 06:00 Temperature Pulse Rate 51 L 51 L 50 L Pulse Rate [ From Monitor] Respiratory 20 20 20 Rate Blood Pressure 110/52 110/52 110/52 O2 Sat by Pulse 98 98 98 Oximetry 07/08/20 07/08/20 07/08/20 06:10 06:20 06:30 Temperature Pulse Rate 51 L 51 L 51 L Pulse Rate [ From Monitor] Respiratory 20 20 20 Rate Blood Pressure 110/49 113/45 113/45 O2 Sat by Pulse 98 98 98 Oximetry 07/08/20 07/08/20 07/08/20 06:40 06:50 07:00 Temperature Pulse Rate 52 L 58 L 55 L Pulse Rate [ From Monitor] Respiratory 20 20 20 Rate Blood Pressure 113/46 89/40 76/34 O2 Sat by Pulse 98 99 99 Oximetry 07/08/20 07/08/20 07/08/20 07:10 07:20 07:30 Temperature Pulse Rate 44 L 45 L 45 L Pulse Rate [ From Monitor] Respiratory 20 20 20 Rate Blood Pressure 120/57 135/51 135/51 O2 Sat by Pulse 96 97 96 Oximetry 07/08/20 07/08/20 07/08/20 07:34 07:40 07:50 Temperature Pulse Rate 47 L 46 L 54 L Pulse Rate [ From Monitor] Respiratory 20 20 Rate Blood Pressure 134/57 135/51 147/81 O2 Sat by Pulse 96 96 87 Oximetry 07/08/20 07/08/20 07/08/20 08:00 08:10 08:20 Temperature 98.5 F Pulse Rate 52 L 55 L 51 L Pulse Rate [ 51 L From Monitor] Respiratory 22 20 20 Rate Blood Pressure 128/56 128/56 108/49 O2 Sat by Pulse 88 86 85 Oximetry 07/08/20 07/08/20 07/08/20 08:30 08:40 08:50 Temperature Pulse Rate 48 L 44 L 49 L Pulse Rate [ From Monitor] Respiratory 20 19 20 Rate Blood Pressure 100/43 100/43 132/55 O2 Sat by Pulse 89 91 85 Oximetry 07/08/20 07/08/20 07/08/20 09:00 09:10 09:20 Temperature Pulse Rate 46 L 49 L 49 L Pulse Rate [ From Monitor] Respiratory 20 20 20 Rate Blood Pressure 135/57 135/57 136/61 O2 Sat by Pulse 92 93 93 Oximetry 07/08/20 07/08/20 07/08/20 09:30 09:40 09:50 Temperature Pulse Rate 49 L 81 50 L Pulse Rate [ From Monitor] Respiratory 20 11 L 20 Rate Blood Pressure 140/69 140/69 136/62 O2 Sat by Pulse 94 83 L 86 Oximetry 07/08/20 07/08/20 07/08/20 10:00 10:10 10:20 Temperature Pulse Rate 50 L 50 L 48 L Pulse Rate [ From Monitor] Respiratory 20 20 20 Rate Blood Pressure 132/56 132/56 131/52 O2 Sat by Pulse 86 86 90 Oximetry 07/08/20 07/08/20 07/08/20 10:30 10:40 10:50 Temperature Pulse Rate 49 L 51 L 53 L Pulse Rate [ From Monitor] Respiratory 20 20 20 Rate Blood Pressure 131/52 137/55 141/62 O2 Sat by Pulse 89 91 91 Oximetry 07/08/20 07/08/20 07/08/20 11:00 11:10 11:20 Temperature Pulse Rate 65 53 L 53 L Pulse Rate [ From Monitor] Respiratory 18 20 20 Rate Blood Pressure 141/62 120/77 141/62 O2 Sat by Pulse 92 84 85 Oximetry 07/08/20 07/08/20 07/08/20 11:30 11:37 11:40 Temperature Pulse Rate 46 L 50 L 49 L Pulse Rate [ From Monitor] Respiratory 20 20 Rate Blood Pressure 141/62 137/55 O2 Sat by Pulse 86 90 Oximetry 07/08/20 07/08/20 07/08/20 11:50 12:00 12:10 Temperature 98.1 F Pulse Rate 48 L 50 L 83 Pulse Rate [ From Monitor] Respiratory 20 20 9 L Rate Blood Pressure 139/63 139/63 134/62 O2 Sat by Pulse 88 91 82 L Oximetry 07/08/20 07/08/20 07/08/20 12:20 12:30 12:40 Temperature Pulse Rate 70 53 L 49 L Pulse Rate [ From Monitor] Respiratory 19 20 20 Rate Blood Pressure 136/71 143/69 143/69 O2 Sat by Pulse 83 L 83 L 85 Oximetry 07/08/20 07/08/20 07/08/20 12:50 13:00 13:10 Temperature Pulse Rate 49 L 49 L 51 L Pulse Rate [ From Monitor] Respiratory 20 20 20 Rate Blood Pressure 141/64 141/64 132/60 O2 Sat by Pulse 86 86 88 Oximetry 07/08/20 07/08/20 07/08/20 13:20 13:30 13:40 Temperature Pulse Rate 50 L 44 L 46 L Pulse Rate [ From Monitor] Respiratory 20 20 20 Rate Blood Pressure 132/60 120/53 120/53 O2 Sat by Pulse 88 94 94 Oximetry 07/08/20 07/08/20 07/08/20 13:50 14:00 14:10 Temperature Pulse Rate 76 50 L 50 L Pulse Rate [ From Monitor] Respiratory 18 20 20 Rate Blood Pressure 141/78 139/63 135/64 O2 Sat by Pulse 85 86 90 Oximetry Constitutional: appears uncomfortable, other (elderly obese female with mildly increased respiratory effort at rest on MVS) Eyes: non-icteric ENT: oropharynx moist, other (ETT 23 cm THUY) Neck: supple Effort: mildly labored Ascultation: Bilateral: diminished breath sounds, rhonchi (scant) Percussion: Bilateral: not dull Cardiovascular: regular rate and rhythm, other (sinus tach) Gastrointestinal: normoactive bowel sounds, soft, non-tender, non-distended (protuberant) Integumentary: rash Extremities: no cyanosis, pink and warm, no ischemia or petechiae, edema Neurologic: non-focal exam (grossly), pupils equal and round, other (sedated, follows simple prompts intermittently) Psychiatric: other (Unable to assess re: sedation) CBC and BMP: 07/08/20 07:31 07/08/20 07:31 ABG, PT/INR, D-dimer: ABG ABG pH 7.412 pH Units (7.350-7.450) 07/08/20 03:20 POC ABG pCO2 20.7 mmHg (32.0-48.0) L 07/06/20 06:58 ABG pCO2 46.7 mm Hg 07/08/20 03:20 ABG pO2 85.5 mm Hg (80.0-90.0) 07/08/20 03:20 POC ABG HCO3 17.0 07/06/20 06:58 ABG O2 Saturation 96.8 % (95.0-99.0) 07/08/20 03:20 PT/INR, D-dimer PT 14.5 Sec. (12.2-14.9) 07/07/20 05:15 INR 1.12 (0.87-1.13) 07/07/20 05:15 D-Dimer 1298.20 ng/mlDDU (0-234) H 07/05/20 23:06 Abnormal lab findings: Abnormal Labs 07/05/20 07/05/20 07/05/20 22:55 23:06 23:06 Hct MCV RDW Lymph % (Auto) [place] % (Auto) Lymph # (Auto) [place] # (Auto) Seg Neutrophils % Seg Neuts % (Manual) Nucleated RBC % Seg Neutrophils # PT 15.2 H INR 1.18 H D-Dimer 1298.20 H ABG pH POC ABG pCO2 ABG pO2 227.3 H ABG HCO3 31.3 H ABG O2 Saturation 99.3 H ABG Base Excess 5.8 H ABG Hemoglobin ABG Sodium ABG Glucose Oxyhemoglobin Potassium Chloride BUN 31 H Creatinine Glucose POC Glucose Calcium 7.7 L Lactate Dehydrogenase 217 H Troponin T 0.032 H C-Reactive Protein 1.60 H NT-Pro-B Natriuret Pep Total Protein 5.2 L Albumin 2.6 L LDL Cholesterol Direct 43 L TSH Arterial Blood Glucose Arterial Blood Ionized Calcium Salicylates Acetaminophen 07/05/20 07/05/20 07/05/20 23:06 23:06 23:06 Hct MCV RDW Lymph % (Auto) [place] % (Auto) Lymph # (Auto) [place] # (Auto) Seg Neutrophils % Seg Neuts % (Manual) Nucleated RBC % Seg Neutrophils # PT INR D-Dimer ABG pH POC ABG pCO2 ABG pO2 ABG HCO3 ABG O2 Saturation ABG Base Excess ABG Hemoglobin ABG Sodium ABG Glucose Oxyhemoglobin Potassium Chloride BUN Creatinine Glucose POC Glucose Calcium Lactate Dehydrogenase Troponin T C-Reactive Protein NT-Pro-B Natriuret Pep Total Protein Albumin LDL Cholesterol Direct TSH 15.130 H Arterial Blood Glucose Arterial Blood Ionized Calcium Salicylates < 0.3 L Acetaminophen < 5.0 L 07/05/20 07/05/20 07/06/20 23:06 23:42 06:58 Hct MCV 98 H RDW 19.8 H Lymph % (Auto) [place] % (Auto) 15.9 H Lymph # (Auto) 0.9 L [place] # (Auto) 1.0 H Seg Neutrophils % Seg Neuts % (Manual) Nucleated RBC % Seg Neutrophils # PT INR D-Dimer ABG pH 7.533 H POC ABG pCO2 20.7 L ABG pO2 ABG HCO3 ABG O2 Saturation ABG Base Excess ABG Hemoglobin 7.6 L ABG Sodium 132.3 L ABG Glucose 55 L Oxyhemoglobin Potassium Chloride BUN Creatinine Glucose POC Glucose Calcium Lactate Dehydrogenase 217 H Troponin T C-Reactive Protein 1.60 H NT-Pro-B Natriuret Pep Total Protein Albumin LDL Cholesterol Direct TSH Arterial Blood Glucose 55 L Arterial Blood Ionized Calcium 4.3 L Salicylates Acetaminophen 07/06/20 07/06/20 07/06/20 11:09 11:09 17:46 Hct 43.0 H MCV 100 H RDW 20.8 H Lymph % (Auto) 7.2 L [place] % (Auto) 11.4 H Lymph # (Auto) 0.7 L [place] # (Auto) 1.1 H Seg Neutrophils % 81.3 H Seg Neuts % (Manual) Nucleated RBC % Seg Neutrophils # 7.9 H PT INR D-Dimer ABG pH POC ABG pCO2 ABG pO2 ABG HCO3 ABG O2 Saturation ABG Base Excess ABG Hemoglobin ABG Sodium ABG Glucose Oxyhemoglobin Potassium Chloride BUN Creatinine Glucose POC Glucose 43 L Calcium Lactate Dehydrogenase Troponin T C-Reactive Protein NT-Pro-B Natriuret Pep 18244 H Total Protein Albumin LDL Cholesterol Direct TSH Arterial Blood Glucose Arterial Blood Ionized Calcium Salicylates Acetaminophen 07/06/20 07/06/20 07/07/20 19:31 Unknown 04:55 Hct MCV RDW Lymph % (Auto) [place] % (Auto) Lymph # (Auto) [place] # (Auto) Seg Neutrophils % Seg Neuts % (Manual) Nucleated RBC % Seg Neutrophils # PT INR D-Dimer ABG pH POC ABG pCO2 ABG pO2 70.8 L ABG HCO3 28.9 H ABG O2 Saturation 94.5 L ABG Base Excess 3.3 H ABG Hemoglobin 11.6 L ABG Sodium ABG Glucose Oxyhemoglobin 92.7 L Potassium 3.5 L Chloride 110.4 H BUN 19 H Creatinine 0.4 L Glucose 101 H POC Glucose < 40 L Calcium 7.2 L Lactate Dehydrogenase Troponin T C-Reactive Protein NT-Pro-B Natriuret Pep Total Protein 4.4 L Albumin 2.2 L LDL Cholesterol Direct TSH Arterial Blood Glucose Arterial Blood Ionized Calcium Salicylates Acetaminophen 07/07/20 07/07/20 07/08/20 05:15 05:15 03:20 Hct MCV 98 H RDW 19.9 H Lymph % (Auto) [place] % (Auto) Lymph # (Auto) [place] # (Auto) Seg Neutrophils % Seg Neuts % (Manual) 76.0 H Nucleated RBC % 1.0 H Seg Neutrophils # PT INR D-Dimer ABG pH POC ABG pCO2 ABG pO2 ABG HCO3 29.1 H ABG O2 Saturation ABG Base Excess 3.8 H ABG Hemoglobin ABG Sodium ABG Glucose Oxyhemoglobin Potassium Chloride BUN Creatinine 0.5 L Glucose POC Glucose Calcium 7.6 L Lactate Dehydrogenase Troponin T C-Reactive Protein NT-Pro-B Natriuret Pep Total Protein Albumin LDL Cholesterol Direct TSH Arterial Blood Glucose Arterial Blood Ionized Calcium Salicylates Acetaminophen 07/08/20 07:31 Hct MCV RDW Lymph % (Auto) [place] % (Auto) Lymph # (Auto) [place] # (Auto) Seg Neutrophils % Seg Neuts % (Manual) Nucleated RBC % Seg Neutrophils # PT INR D-Dimer ABG pH POC ABG pCO2 ABG pO2 ABG HCO3 ABG O2 Saturation ABG Base Excess ABG Hemoglobin ABG Sodium ABG Glucose Oxyhemoglobin Potassium Chloride 108.6 H BUN Creatinine 0.3 L Glucose 177 H POC Glucose Calcium 7.7 L Lactate Dehydrogenase Troponin T C-Reactive Protein NT-Pro-B Natriuret Pep Total Protein Albumin LDL Cholesterol Direct TSH Arterial Blood Glucose Arterial Blood Ionized Calcium Salicylates Acetaminophen Chest x-ray: pending Allied health notes reviewed: nursing
[2020-07-08 14:24] LABS: Hematocrit 39.7 % (30.3-42.9); Hemoglobin 12.3 gm/dl (10.1-14.3)
[2020-07-08] MEDS ORDERED: SIMPLE SYRUP 15 ML FEEDTUBE PRN ×2 (14:30)
[2020-07-08] MEDS ORDERED: SODIUM BICARBONATE 325 MG TAB FEEDTUBE PRN (14:30)
[2020-07-08] MEDS ORDERED: LIPASE 10,500/PROTEASE 25,000/AMYLASE 43,750 (UNITS) DR CAP FEEDTUBE PRN (14:30)
--- NOTE | 2020-07-08 18:18 | Consultation ---
History of Present Illness Consult date: 07/08/20 Requesting physician: JONATHAN EDMONDS II Reason for Consult: Intracranial hemorrhage Chief complaint: Intracranial hemorrhage History of present illness: Xiomara Agarwal is a 59 y/o F w/ history of COPD, CHF, CKD that presented to [facility] ED 2 days ago due to altered mental status. CT head demonstrated 2 small bifrontal intracerebral hemorrhages, both measuring less than 1 cm. Carotid duplex revealed bilateral carotid stenosis > 70%. She was admitted to the ICU for management of acute hypoxic respiratory failure requiring intubation. CXR notable for b/l consolidations concerning for pneumonia vs pneumonitis. COVID-19 test negative. Presently, she is intubated and sedated and therefore unable to provide detailed history. Past History Past Medical History: other (Back surgery based on films, but rest is not obtainable secondary to mental state) Past Surgical History: Other (back surgery for sure) Social history: other (unable to obtain) Family history: other (unable to obtain) Medications and Allergies Allergies Allergy/AdvReac Type Severity Reaction Status Date / Time clopidogrel [From Plavix] Allergy Unknown Verified 04/20/20 14:51 hydromorphone [From Dilaudid] Allergy Unknown Verified 04/20/20 14:51 phenobarbital Allergy Unknown Verified 04/20/20 14:51 Home Medications Medication Instructions Recorded Confirmed Last Taken Type ALPRAZolam [Xanax TAB] 0.25 mg PO TID PRN 07/06/20 07/06/20 Unknown History Acetaminophen [Tylenol] 650 mg PO Q6HR PRN 07/06/20 07/06/20 Unknown History Amiodarone HCl [Amiodarone 100 MG 100 mg PO BID 07/06/20 07/06/20 Unknown Hi story TAB] Aspirin 325 mg PO QDAY 07/06/20 07/06/20 Unknown History AtorvaSTATin [Lipitor] 40 mg PO QHS 07/06/20 07/06/20 Unknown History HYDROcodone/APAP 5-325 [Edgard 1 each PO Q6HR PRN 07/06/20 07/06/20 Unknown History 5/325] Ipratropium/Albuterol Sulfate 1 ampul IH Q8HR 07/06/20 07/06/20 Unknown History [DUONEB *Not for PRN Use*] Lactulose [Cephulac] 20 gm PO Q6HR 07/06/20 07/06/20 Unknown History Melatonin [Melatonin 10MG TAB] 10 mg PO QHS 07/06/20 07/06/20 Unknown History Metoprolol Tartrate [Lopressor] 50 mg PO Q8HR 07/06/20 07/06/20 Unknown History Quetiapine Fumarate [SEROquel] 300 mg PO QDAY 07/06/20 07/06/20 Unknown History Quetiapine Fumarate [SEROquel] 400 mg PO QHS 07/06/20 07/06/20 Unknown History Active Meds: Active Medications Acetaminophen (Tylenol) 650 mg [place] Q4H PRN PRN Reason: Pain, Mild (1-3) Lipase/Protease/Amylase (Pancrejay Dr 10,500 Unit) 1 each FEEDTUBE PRN PRN PRN Reason: For Clogged Feeding Tube Bisacodyl (Dulcolax) 10 mg [place] QDAY PRN PRN Reason: Constipation unrelieved by MOM Dextrose (D50w (25gm) Syringe) 0 ml IV ONCE PRN PRN Reason: Hypoglycemia Last Admin: 07/06/20 19:25 Dose: 30 ml Documented by: Enoxaparin Sodium (Enoxaparin) 40 mg SUB-Q QDAY@2200 LUZ MARIA; Protocol Famotidine (Pepcid) 20 mg IV BID LUZ MARIA Last Admin: 07/08/20 10:18 Dose: 20 mg Documented by: Fentanyl (Sublimaze) 50 mcg IV Q10MIN PRN PRN Reason: ANALGESIA Last Admin: 07/06/20 01:20 Dose: 50 mcg Documented by: Hydralazine HCl (Apresoline) 5 mg IV Q30MIN PRN PRN Reason: Hypertension Hydrophilic Ointment (Vaseline Lip Therapy) 1 applic TP Q2HR PRN PRN Reason: Dry Lips Fentanyl Citrate (Fentanyl Drip Premix) 2,000 mcg in 100 mls @ 3.561 mls/hr IV TITR [facility]; Protocol Last Admin: 07/08/20 13:21 Dose: 3 mcg/kg/hr, 10.682 mls/hr Documented by: Sodium Chloride (Nacl 0.9% 1000 Ml) 1,000 mls @ 75 mls/hr IV DIRECT LUZ MARIA Last Admin: 07/06/20 11:02 Dose: 75 mls/hr Documented by: Propofol (Diprivan 10 Mg/Ml) 1,000 mg in 100 mls @ 2.136 mls/hr IV TITR [facility]IA; Protocol Last Titration: 07/08/20 17:47 Dose: 15 mcg/kg/min, 6.409 mls/hr Documented by: Dextrose (D5w) 1,000 mls @ 100 mls/hr IV DIRECT [facility]Z MARIA Last Admin: 07/08/20 13:18 Dose: 100 mls/hr Documented by: Norepinephrine (Levophed Drip 4 Mg/Ns 250 Ml) 4 mg in 250 mls @ 7.5 mls/hr IV TITR [facility]IA; Protocol Last Titration: 07/08/20 15:43 Dose: 0 mcg/min, 0 mls/hr Documented by: Dopamine HCl/Dextrose (Intropin Drip 800 Mg/D5w 250 Ml) 800 mg in 250 mls @ 2.671 mls/hr IV TITR [facility]IA; Protocol Cefepime HCl (Cefepime/Ns 2 Gm/100 Ml) 2 gm in 100 mls @ 200 mls/hr IV Q12HR [facility]IA; Protocol Last Admin: 07/08/20 10:18 Dose: 200 mls/hr Documented by: Vancomycin HCl (Vancomycin/Ns 1 Gm/250 Ml) 1 gm in 250 mls @ 167.007 mls/hr IV Q12H [facility]IA Last Admin: 07/08/20 08:27 Dose: 167.007 mls/hr Documented by: Methylprednisolone Sodium Succinate (Solu-Medrol) 60 mg IV Q8HR LUZ MARIA Morphine Sulfate (Morphine) 2 mg IV Q4H PRN PRN Reason: Pain, Moderate (4-6) Multi-Ingred Cream/Lotion/Oil/Oint (Artificial Tears Ophth Oint) 1 applic OU Q4HR PRN PRN Reason: Dry Eye(s) Ondansetron HCl (Zofran) 4 mg IV Q8H PRN PRN Reason: N/V unrelieved by Reglan Simple Syrup (Simple Syrup) 15 ml FEEDTUBE PRN PRN PRN Reason: Hypoglycemia Simple Syrup (Simple Syrup) 30 ml FEEDTUBE PRN PRN PRN Reason: Hypoglycemia Sodium Bicarbonate (Sodium Bicarbonate) 325 mg FEEDTUBE PRN PRN PRN Reason: For Clogged Feeding Tube Sodium Chloride (Sodium Chloride Flush Syringe 10 Ml) 10 ml IV BID LUZ MARIA Last Admin: 07/08/20 10:18 Dose: 10 ml Documented by: Sodium Chloride (Sodium Chloride Flush Syringe 10 Ml) 10 ml IV PRN PRN PRN Reason: LINE FLUSH Review of Systems All systems: negative (What is specified in HPI) Physical Examination - Vital Signs Vital Signs: Vital Signs Pulse Resp 80 13 07/05/20 21:00 07/05/20 21:00 - Physical Exam Narrative exam: seen and examined intubated on propofol NC/AT RRR breathing non-labored abdomen soft no cyanosis or clubbing opens eyes to voice EOMI, 3 mm face symmetric hearing intact to voice follows commands x 4 Results - Laboratory Findings CBC and BMP: 07/08/20 13:40 07/08/20 07:31 Abnormal Lab Findings: Abnormal Labs 07/05/20 07/05/20 07/05/20 22:55 23:06 23:06 Hct MCV RDW Lymph % (Auto) Gray % (Auto) Lymph # (Auto) Gray # (Auto) Seg Neutrophils % Seg Neuts % (Manual) Nucleated RBC % Seg Neutrophils # PT 15.2 H INR 1.18 H D-Dimer 1298.20 H ABG pH POC ABG pCO2 ABG pO2 227.3 H ABG HCO3 31.3 H ABG O2 Saturation 99.3 H ABG Base Excess 5.8 H ABG Hemoglobin ABG Sodium ABG Glucose Oxyhemoglobin Potassium Chloride BUN 31 H Creatinine Glucose POC Glucose Calcium 7.7 L Lactate Dehydrogenase 217 H Troponin T 0.032 H C-Reactive Protein 1.60 H NT-Pro-B Natriuret Pep Total Protein 5.2 L Albumin 2.6 L LDL Cholesterol Direct 43 L TSH Arterial Blood Glucose Arterial Blood Ionized Calcium Salicylates Acetaminophen 07/05/20 07/05/20 07/05/20 23:06 23:06 23:06 Hct MCV RDW Lymph % (Auto) Gray % (Auto) Lymph # (Auto) Gray # (Auto) Seg Neutrophils % Seg Neuts % (Manual) Nucleated RBC % Seg Neutrophils # PT INR D-Dimer ABG pH POC ABG pCO2 ABG pO2 ABG HCO3 ABG O2 Saturation ABG Base Excess ABG Hemoglobin ABG Sodium ABG Glucose Oxyhemoglobin Potassium Chloride BUN Creatinine Glucose POC Glucose Calcium Lactate Dehydrogenase Troponin T C-Reactive Protein NT-Pro-B Natriuret Pep Total Protein Albumin LDL Cholesterol Direct TSH 15.130 H Arterial Blood Glucose Arterial Blood Ionized Calcium Salicylates < 0.3 L Acetaminophen < 5.0 L 07/05/20 07/05/20 07/06/20 23:06 23:42 06:58 Hct MCV 98 H RDW 19.8 H Lymph % (Auto) Gray % (Auto) 15.9 H Lymph # (Auto) 0.9 L Gray # (Auto) 1.0 H Seg Neutrophils % Seg Neuts % (Manual) Nucleated RBC % Seg Neutrophils # PT INR D-Dimer ABG pH 7.533 H POC ABG pCO2 20.7 L ABG pO2 ABG HCO3 ABG O2 Saturation ABG Base Excess ABG Hemoglobin 7.6 L ABG Sodium 132.3 L ABG Glucose 55 L Oxyhemoglobin Potassium Chloride BUN Creatinine Glucose POC Glucose Calcium Lactate Dehydrogenase 217 H Troponin T C-Reactive Protein 1.60 H NT-Pro-B Natriuret Pep Total Protein Albumin LDL Cholesterol Direct TSH Arterial Blood Glucose 55 L Arterial Blood Ionized Calcium 4.3 L Salicylates Acetaminophen 07/06/20 07/06/20 07/06/20 11:09 11:09 17:46 Hct 43.0 H MCV 100 H RDW 20.8 H Lymph % (Auto) 7.2 L Gray % (Auto) 11.4 H Lymph # (Auto) 0.7 L Gray # (Auto) 1.1 H Seg Neutrophils % 81.3 H Seg Neuts % (Manual) Nucleated RBC % Seg Neutrophils # 7.9 H PT INR D-Dimer ABG pH POC ABG pCO2 ABG pO2 ABG HCO3 ABG O2 Saturation ABG Base Excess ABG Hemoglobin ABG Sodium ABG Glucose Oxyhemoglobin Potassium Chloride BUN Creatinine Glucose POC Glucose 43 L Calcium Lactate Dehydrogenase Troponin T C-Reactive Protein NT-Pro-B Natriuret Pep 39158 H Total Protein Albumin LDL Cholesterol Direct TSH Arterial Blood Glucose Arterial Blood Ionized Calcium Salicylates Acetaminophen 07/06/20 07/06/20 07/07/20 19:31 Unknown 04:55 Hct MCV RDW Lymph % (Auto) Gray % (Auto) Lymph # (Auto) Gray # (Auto) Seg Neutrophils % Seg Neuts % (Manual) Nucleated RBC % Seg Neutrophils # PT INR D-Dimer ABG pH POC ABG pCO2 ABG pO2 70.8 L ABG HCO3 28.9 H ABG O2 Saturation 94.5 L ABG Base Excess 3.3 H ABG Hemoglobin 11.6 L ABG Sodium ABG Glucose Oxyhemoglobin 92.7 L Potassium 3.5 L Chloride 110.4 H BUN 19 H Creatinine 0.4 L Glucose 101 H POC Glucose < 40 L Calcium 7.2 L Lactate Dehydrogenase Troponin T C-Reactive Protein NT-Pro-B Natriuret Pep Total Protein 4.4 L Albumin 2.2 L LDL Cholesterol Direct TSH Arterial Blood Glucose Arterial Blood Ionized Calcium Salicylates Acetaminophen 07/07/20 07/07/20 07/08/20 05:15 05:15 03:20 Hct MCV 98 H RDW 19.9 H Lymph % (Auto) Gray % (Auto) Lymph # (Auto) Gray # (Auto) Seg Neutrophils % Seg Neuts % (Manual) 76.0 H Nucleated RBC % 1.0 H Seg Neutrophils # PT INR D-Dimer ABG pH POC ABG pCO2 ABG pO2 ABG HCO3 29.1 H ABG O2 Saturation ABG Base Excess 3.8 H ABG Hemoglobin ABG Sodium ABG Glucose Oxyhemoglobin Potassium Chloride BUN Creatinine 0.5 L Glucose POC Glucose Calcium 7.6 L Lactate Dehydrogenase Troponin T C-Reactive Protein NT-Pro-B Natriuret Pep Total Protein Albumin LDL Cholesterol Direct TSH Arterial Blood Glucose Arterial Blood Ionized Calcium Salicylates Acetaminophen 07/08/20 07:31 Hct MCV RDW Lymph % (Auto) Gray % (Auto) Lymph # (Auto) Gray # (Auto) Seg Neutrophils % Seg Neuts % (Manual) Nucleated RBC % Seg Neutrophils # PT INR D-Dimer ABG pH POC ABG pCO2 ABG pO2 ABG HCO3 ABG O2 Saturation ABG Base Excess ABG Hemoglobin ABG Sodium ABG Glucose Oxyhemoglobin Potassium Chloride 108.6 H BUN Creatinine 0.3 L Glucose 177 H POC Glucose Calcium 7.7 L Lactate Dehydrogenase Troponin T C-Reactive Protein NT-Pro-B Natriuret Pep Total Protein Albumin LDL Cholesterol Direct TSH Arterial Blood Glucose Arterial Blood Ionized Calcium Salicylates Acetaminophen Assessment and Plan 59 y/o F w/ 2 small bifrontal intracerebral hemorrhages, non-operative, incidentally discovered bilateral carotid stenosis -recommend MRI brain without contrast once stabilized to evaluate for amyloid angiopathy vs cavernomas -no indication for Neurosurgical intervention -would not recommend seizure prophylaxis -cont neuro checks q4 -please notify if questions
[2020-07-08 21:09] LABS: Hematocrit 39.2 % (30.3-42.9); Hemoglobin 12.3 gm/dl (10.1-14.3)
[2020-07-08] MEDS: ENOXAPARIN 40 MG/0.4 ML INJ SUB-Q SCH (22:38)
[2020-07-08] MEDS: methylPREDNISolone Sod Succinate 125 MG/2 ML INJ IV SCH (22:38)
[2020-07-09] MEDS: methylPREDNISolone Sod Succinate 125 MG/2 ML INJ IV SCH ×3 (05:42→21:04)
[2020-07-09] MEDS: fentaNYL DRIP Premix 2,000 MCG/100 ML BAG IV SCH ×3 (07:40→23:57)
[2020-07-09] MEDS: VANCOMYCIN/NS 1 GM/250 ML 1 GM/250 ML BAG IV SCH (08:30)
--- NOTE | 2020-07-09 08:32 | Progress Note ---
Assessment and Plan Assessment and plan: (1) Acute encephalopathy Current Visit: Yes Status: Acute Plan to address problem: Etiology is unclear possibly secondary to underlying infection versus cerebral hemorrhage. Will monitor mental status. Neurosurgeon has been consulted for the cerebral hemorrhage. Hypotension -Requiring pressors -She was evaluated by ID yesterday and patient was placed on IV cefepime and vancomycin -Blood cultures are negative -COVID-19 test is negative (2) Acute respiratory failure Current Visit: Yes Status: Acute Qualifiers: Respiratory failure complication: hypoxia Qualified Code(s): J96.01 - Acute respiratory failure with hypoxia Plan to address problem: Patient currently intubated and sedated. Pulmonary/critical care is following (3) Intracranial hemorrhage Current Visit: Yes Status: Acute Plan to address problem: Repeat CAT scan noted. Neurosurgeon following. Patient has right ICA stenosis and consulted vascular surgery and recommend no intervention needed. (4) Suspected 2019 novel coronavirus infection Current Visit: Yes Status: Acute Plan to address problem: Covid test is negative (5) DVT prophylaxis Current Visit: Yes Status: Acute Plan to address problem: Patient placed on sequential compression device. (6) Full code status Current Visit: Yes Status: Acute 07/07/2020; patient was evaluated by ID and IV antibiotics discontinued. Pulmonary critical care is following. Neurosurgeon consulted in the emergency department and will follow the patient. Patient is still intubated and sedated and on mechanical ventilation, patient is still in the ED and will be transferred to ICU. Patient had episode of hypoglycemia yesterday and was treated according to hypoglycemia protocol. Patient was evaluated by cardiology for history paroxysmal A. fib and patient is not a candidate for anticoagulation because of anemia. 07/07/2020; patient has hypotension yesterday and requiring pressors and that evaluated and started her on IV cefepime and vancomycin. Patient has been followed with Dr Valles and Dr. marx before. 07/09/2020; patient has hypertension and on pressors, on IV cefepime and vancomycin. Patient was seen by neurosurgery and recommend MRI once patient is stable. No neurosurgical intervention is needed. The high probability of a clinically significant, sudden or life threatening deterioration of the [respiratory, neurology] system(s) required my full and direct attention, intervention and personal management. The aggregate critical care time was [35] minutes. This time is in addition to time spent performing reported procedures but includes the following: [x] Data Review and interpretation [x] Patient assessment and monitoring of vital signs [x] Documentation [x] Medication orders and management History Interval history: Patient was seen and evaluated this morning Patient is intubated and sedated Hospitalist Physical - Physical exam Narrative exam: Intubated and sedated The patient appeared well nourished and normally developed. Vital signs as documented. Head exam is unremarkable. No scleral icterus . Neck is without jugular venous distension, thyromegaly, or carotid bruits. Lungs are clear to auscultation. Cardiac exam reveals regular rate and Rhythm. Abdominal exam reveals normal bowel sounds, nontender, no organomegaly. Extremities are nonedematous and both femoral and pedal pulses are normal. 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 - Constitutional Vitals: Temp Pulse Resp BP Pulse Ox 97.2 F L 116 H 17 152/96 92 07/09/20 03:54 07/09/20 08:19 07/09/20 08:11 07/09/20 08:19 07/09/20 08:19 General appearance: Present: other (intubated on the vent) HEART Score - HEART Score Troponin: Troponin T 0.032 ng/mL (0.00-0.029) H 07/05/20 23:06 Results - Labs CBC & Chem 7: 07/08/20 20:41 07/08/20 07:31 Labs: Laboratory Last Values WBC 9.8 K/mm3 (4.5-11.0) 07/07/20 05:15 RBC 3.90 M/mm3 (3.65-5.03) 07/07/20 05:15 Hgb 12.3 gm/dl (10.1-14.3) 07/08/20 20:41 Hct 39.2 % (30.3-42.9) 07/08/20 20:41 MCV 98 fl (79-97) H 07/07/20 05:15 MCH 30 pg (28-32) 07/07/20 05:15 MCHC 31 % (30-34) 07/07/20 05:15 RDW 19.9 % (13.2-15.2) H 07/07/20 05:15 Plt Count 201 K/mm3 (140-440) 07/07/20 05:15 Lymph % (Auto) 7.2 % (13.4-35.0) L 07/06/20 11:09 [place] % (Auto) [place] 07/07/20 05:15 Eos % (Auto) 0.0 % (0.0-4.3) 07/06/20 11:09 Baso % (Auto) 0.1 % (0.0-1.8) 07/06/20 11:09 Lymph # (Auto) 0.7 K/mm3 (1.2-5.4) L 07/06/20 11:09 [place] # (Auto) 1.1 K/mm3 (0.0-0.8) H 07/06/20 11:09 Eos # (Auto) 0.0 K/mm3 (0.0-0.4) 07/06/20 11:09 Baso # (Auto) 0.0 K/mm3 (0.0-0.1) 07/06/20 11:09 Add Manual Diff Complete 07/07/20 05:15 Total Counted 100 07/07/20 05:15 Seg Neutrophils % 81.3 % (40.0-70.0) H 07/06/20 11:09 Seg Neuts % (Manual) 76.0 % (40.0-70.0) H 07/07/20 05:15 Band Neutrophils % 0 % 07/07/20 05:15 Lymphocytes % (Manual) 24.0 % (13.4-35.0) 07/07/20 05:15 Reactive Lymphs % (Man) 0 % 07/07/20 05:15 Monocytes % (Manual) 0 % (0.0-7.3) 07/07/20 05:15 Eosinophils % (Manual) 0 % (0.0-4.3) 07/07/20 05:15 Basophils % (Manual) 0 % (0.0-1.8) 07/07/20 05:15 Metamyelocytes % 0 % 07/07/20 05:15 Myelocytes % 0 % 07/07/20 05:15 Promyelocytes % 0 % 07/07/20 05:15 Blast Cells % 0 % 07/07/20 05:15 Nucleated RBC % 1.0 % (0.0-0.9) H 07/07/20 05:15 Seg Neutrophils # 7.9 K/mm3 (1.8-7.7) H 07/06/20 11:09 Seg Neutrophils # Man 7.4 K/mm3 (1.8-7.7) 07/07/20 05:15 Band Neutrophils # 0.0 K/mm3 07/07/20 05:15 Lymphocytes # (Manual) 2.4 K/mm3 (1.2-5.4) 07/07/20 05:15 Abs React Lymphs (Man) 0.0 K/mm3 07/07/20 05:15 Monocytes # (Manual) 0.0 K/mm3 (0.0-0.8) 07/07/20 05:15 Eosinophils # (Manual) 0.0 K/mm3 (0.0-0.4) 07/07/20 05:15 Basophils # (Manual) 0.0 K/mm3 (0.0-0.1) 07/07/20 05:15 Metamyelocytes # 0.0 K/mm3 07/07/20 05:15 Myelocytes # 0.0 K/mm3 07/07/20 05:15 Promyelocytes # 0.0 K/mm3 07/07/20 05:15 Blast Cells # 0.0 K/mm3 07/07/20 05:15 WBC Morphology Not Reportable 07/07/20 05:15 Hypersegmented Neuts Not Reportable 07/07/20 05:15 Hyposegmented Neuts Not Reportable 07/07/20 05:15 Hypogranular Neuts Not Reportable 07/07/20 05:15 Smudge Cells Not Reportable 07/07/20 05:15 Toxic Granulation Not Reportable 07/07/20 05:15 Toxic Vacuolation Not Reportable 07/07/20 05:15 Dohle Bodies Not Reportable 07/07/20 05:15 Pelger-Huet Anomaly Not Reportable 07/07/20 05:15 Marissa Rods Not Reportable 07/07/20 05:15 Platelet Estimate Consistent w auto 07/07/20 05:15 Clumped Platelets Not Reportable 07/07/20 05:15 Plt Clumps, EDTA Not Reportable 07/07/20 05:15 Large Platelets Not Reportable 07/07/20 05:15 Giant Platelets Not Reportable 07/07/20 05:15 Platelet Satelliting Not Reportable 07/07/20 05:15 Plt Morphology Comment Not Reportable 07/07/20 05:15 RBC Morphology Not Reportable 07/07/20 05:15 Dimorphic RBCs Not Reportable 07/07/20 05:15 Polychromasia Not Reportable 07/07/20 05:15 Hypochromasia Not Reportable 07/07/20 05:15 Poikilocytosis Not Reportable 07/07/20 05:15 Anisocytosis 1+ 07/07/20 05:15 Microcytosis Not Reportable 07/07/20 05:15 Macrocytosis Few 07/07/20 05:15 Spherocytes Not Reportable 07/07/20 05:15 Pappenheimer Bodies Not Reportable 07/07/20 05:15 Sickle Cells Not Reportable 07/07/20 05:15 Target Cells Not Reportable 07/07/20 05:15 Tear Drop Cells Not Reportable 07/07/20 05:15 Ovalocytes Rare 07/07/20 05:15 Helmet Cells Not Reportable 07/07/20 05:15 Griggs-Sherando Bodies Not Reportable 07/07/20 05:15 [place] Rings Not Reportable 07/07/20 05:15 Demi Cells Not Reportable 07/07/20 05:15 Bite Cells Not Reportable 07/07/20 05:15 Crenated Cell Not Reportable 07/07/20 05:15 Elliptocytes Not Reportable 07/07/20 05:15 Acanthocytes (Spur) Not Reportable 07/07/20 05:15 Rouleaux Not Reportable 07/07/20 05:15 Hemoglobin C Crystals Not Reportable 07/07/20 05:15 Schistocytes Rare 07/07/20 05:15 Malaria parasites Not Reportable 07/07/20 05:15 Ab Bodies Not Reportable 07/07/20 05:15 Hem Pathologist Commnt No 07/07/20 05:15 PT 14.5 Sec. (12.2-14.9) 07/07/20 05:15 INR 1.12 (0.87-1.13) 07/07/20 05:15 APTT 30.8 Sec. (24.2-36.6) 07/05/20 23:06 D-Dimer 1298.20 ng/mlDDU (0-234) H 07/05/20 23:06 ABG pH 7.440 (7.320-7.450) 07/09/20 04:05 POC ABG pCO2 46.2 mmHg (32.0-48.0) 07/09/20 04:05 ABG pCO2 46.7 mm Hg 07/08/20 03:20 POC ABG pO2 63.4 mmHg (83-108) L 07/09/20 04:05 ABG pO2 85.5 mm Hg (80.0-90.0) 07/08/20 03:20 POC ABG HCO3 30.7 07/09/20 04:05 ABG HCO3 29.1 mmol/L (20.0-26.0) H 07/08/20 03:20 ABG O2 Saturation 96.8 % (95.0-99.0) 07/08/20 03:20 ABG O2 Content 16.6 (0.0-44) 07/08/20 03:20 POC ABG Base Excess 5.7 07/09/20 04:05 ABG Base Excess 3.8 mmol/L (-2.0-3.0) H 07/08/20 03:20 ABG Hemoglobin 11.8 (12.0-17.5) L 07/09/20 04:05 ABG Carboxyhemoglobin 1.3 % (0.0-5.0) 07/08/20 03:20 ABG Methemoglobin 0.5 % (0.0-1.5) 07/08/20 03:20 ABG Sodium 134.1 mmol/L (136.0-145.0) L 07/09/20 04:05 ABG Potassium 4.1 mmol/L (3.40-4.50) 07/09/20 04:05 ABG Chloride 105.0 mmol/L (98-107) 07/09/20 04:05 ABG Glucose 137 mg/dL (65-95) H 07/09/20 04:05 Oxyhemoglobin 95.1 % (95.0-99.0) 07/08/20 03:20 FiO2 75 07/09/20 04:05 Sodium 144 mmol/L (137-145) 07/08/20 07:31 Potassium 3.8 mmol/L (3.6-5.0) 07/08/20 07:31 Chloride 108.6 mmol/L (98-107) H 07/08/20 07:31 Carbon Dioxide 29 mmol/L (22-30) 07/08/20 07:31 Anion Gap 10 mmol/L 07/08/20 07:31 BUN 7 mg/dL (7-17) 07/08/20 07:31 Creatinine 0.3 mg/dL (0.6-1.2) L 07/08/20 07:31 Estimated GFR > 60 ml/min 07/08/20 07:31 BUN/Creatinine Ratio 23 % 07/08/20 07:31 Glucose 177 mg/dL (65-100) H 07/08/20 07:31 POC Glucose 132 mg/dL (70-105) H 07/09/20 05:10 Lactic Acid 0.80 mmol/L (0.7-2.0) 07/05/20 23:06 Calcium 7.7 mg/dL (8.4-10.2) L 07/08/20 07:31 Magnesium 2.00 mg/dL (1.7-2.3) 07/05/20 23:06 Ferritin 60.8 ng/mL (10.0-200.0) 07/05/20 23:06 Total Bilirubin 0.30 mg/dL (0.1-1.2) 07/06/20 Unknown AST 13 units/L (5-40) 07/06/20 Unknown ALT 10 units/L (7-56) 07/06/20 Unknown Alkaline Phosphatase 71 units/L (35-129) 07/06/20 Unknown Ammonia 40.0 umol/L (25-60) 07/05/20 23:06 Lactate Dehydrogenase 217 units/L (91-180) H 07/05/20 23:06 Lactate Dehydrogenase 217 units/L (91-180) H 07/05/20 23:06 Total Creatine Kinase 55 units/L (30-135) 07/05/20 23:06 Troponin T 0.032 ng/mL (0.00-0.029) H 07/05/20 23:06 C-Reactive Protein 1.60 mg/dL (0.00-1.30) H 07/05/20 23:06 C-Reactive Protein 1.60 mg/dL (0.00-1.30) H 07/05/20 23:06 NT-Pro-B Natriuret Pep 15130 pg/mL (0-900) H 07/06/20 11:09 Total Protein 4.4 g/dL (6.3-8.2) L 07/06/20 Unknown Albumin 2.2 g/dL (3.9-5) L 07/06/20 Unknown Albumin/Globulin Ratio 1.0 % 07/06/20 Unknown Triglycerides 126 mg/dL (2-149) 07/05/20 23:06 Cholesterol 109 mg/dL (50-199) 07/05/20 23:06 LDL Cholesterol Direct 43 mg/dL (50-130) L 07/05/20 23:06 HDL Cholesterol 42 mg/dL (40-59) 07/05/20 23:06 Cholesterol/HDL Ratio 2.59 % 07/05/20 23:06 Procalcitonin < 0.05 ng/mL (<0.15) 07/05/20 23:06 TSH 15.130 mlU/mL (0.270-4.200) H 07/05/20 23:06 Free T4 0.79 ng/dL (0.76-1.46) 07/06/20 11:09 Arterial Blood Glucose 137 mg/dL (65-95) H 07/09/20 04:05 Arterial Blood Ionized Calcium 4.8 mg/dL (4.6-5.3) 07/09/20 04:05 Urine Color Mildred (Yellow) 07/05/20 Unknown Urine Turbidity Clear (Clear) 07/05/20 Unknown Urine pH 5.0 (5.0-7.0) 07/05/20 Unknown Ur Specific [place] 1.025 (1.003-1.030) 07/05/20 Unknown Urine Protein 30 mg/dl mg/dL (Negative) 07/05/20 Unknown Urine Glucose (UA) Neg mg/dL (Negative) 07/05/20 Unknown Urine Ketones Neg mg/dL (Negative) 07/05/20 Unknown Urine Blood Neg (Negative) 07/05/20 Unknown Urine Nitrite Neg (Negative) 07/05/20 Unknown Urine Bilirubin Neg (Negative) 07/05/20 Unknown Urine Urobilinogen 4.0 mg/dL (<2.0) 07/05/20 Unknown Ur Leukocyte Esterase Neg (Negative) 07/05/20 Unknown Urine WBC (Auto) 2.0 /HPF (0.0-6.0) 07/05/20 Unknown Urine RBC (Auto) 1.0 /HPF (0.0-6.0) 07/05/20 Unknown U Epithel Cells (Auto) 1.0 /HPF (0-13.0) 07/05/20 Unknown Hyaline Casts 16 /LPF 07/05/20 Unknown Urine Mucus Few /HPF 07/05/20 Unknown Salicylates < 0.3 mg/dL (2.8-20.0) L 07/05/20 23:06 Acetaminophen < 5.0 ug/mL (10.0-30.0) L 07/05/20 23:06 Plasma/Serum Alcohol < 0.01 % (0-0.07) 07/05/20 23:06 Coronavirus (PCR) Negative (Negative) 07/06/20 Unknown Blood Type O POSITIVE 07/05/20 23:10 Antibody Screen Negative 07/05/20 23:10 Microbiology: Microbiology 07/05/20 23:06 Peripheral/Venous Blood Culture - Preliminary NO GROWTH AFTER 72 HOURS 07/05/20 23:42 Peripheral/Venous Blood Culture - Preliminary NO GROWTH AFTER 72 HOURS 07/05/20 23:30 Tracheal Aspirate Sputum Culture - Final 07/05/20 Unknown Urine,Catheterized - Indwelling Catheter Urine Culture - Final Roberts/IV: Voiding Method Indwelling Catheter IV Catheter Type [Right INT / Saline Lock External Jugular] IV Catheter Type [Left Triple Lumen Cath Internal Jugular] Active Medications - Current Medications Current Medications: Generic Name Dose Route Start Last Admin Trade Name Freq PRN Reason Stop Dose Admin Acetaminophen 650 mg 07/06/20 02:44 Tylenol HI Q4H PRN Pain, Mild (1-3) Lipase/Protease/Amylase 1 each 07/08/20 14:30 Pancrejay [place] 10,500 Unit FEEDTUBE PRN PRN For Clogged Feeding Tube Bisacodyl 10 mg 07/06/20 02:44 Dulcolax HI QDAY PRN Constipation unrelieved by MOM Dextrose 0 ml 07/06/20 19:30 07/06/20 19:25 D50w (25gm) Syringe IV 30 ml ONCE PRN Administration Hypoglycemia Enoxaparin Sodium 40 mg 07/08/20 22:00 07/08/20 22:38 Enoxaparin SUB-Q 40 mg QDAY@2200 LUZ MARIA Administration Protocol Famotidine 20 mg 07/06/20 10:00 07/08/20 21:50 Pepcid IV 20 mg BID LUZ MARIA Administration Fentanyl 50 mcg 07/05/20 22:08 07/06/20 01:20 Sublimaze IV 50 mcg Q10MIN PRN Administration ANALGESIA Hydralazine HCl 5 mg 07/06/20 02:30 Apresoline IV Q30MIN PRN Hypertension Hydrophilic Ointment 1 applic 07/05/20 22:08 Vaseline Lip Therapy TP Q2HR PRN Dry Lips Fentanyl Citrate 2,000 mcg in 100 mls @ 3.561 mls/hr 07/05/20 23:00 07/09/20 08:28 Fentanyl Drip Premix IV 4 mcg/kg/hr TITR LUZ MARIA 14.243 mls/hr Titration Protocol 1 MCG/KG/HR Sodium Chloride 1,000 mls @ 75 mls/hr 07/06/20 02:45 07/06/20 11:02 Nacl 0.9% 1000 Ml IV 75 mls/hr DIRECT LUZ MARIA Administration Propofol 1,000 mg in 100 mls @ 2.136 mls/hr 07/06/20 04:00 07/09/20 07:00 Diprivan 10 Mg/Ml IV 0 mcg/kg/min TITR LUZ MARIA 0 mls/hr Titration Protocol 5 MCG/KG/MIN Dextrose 1,000 mls @ 100 mls/hr 07/06/20 20:00 07/08/20 22:46 D5w IV 100 mls/hr DIRECT LUZ MARIA Administration Norepinephrine 4 mg in 250 mls @ 7.5 mls/hr 07/06/20 22:00 07/08/20 21:50 Levophed Drip 4 Mg/Ns 250 Ml IV 0 mcg/min TITR LUZ MARIA 0 mls/hr Titration Protocol 2 MCG/MIN Dopamine HCl/Dextrose 800 mg in 250 mls @ 2.671 mls/hr 07/07/20 04:00 Intropin Drip 800 Mg/D5w 250 Ml IV TITR LUZ MARIA Protocol 2 MCG/KG/MIN Cefepime HCl 2 gm in 100 mls @ 200 mls/hr 07/07/20 13:00 07/08/20 22:37 Cefepime/Ns 2 Gm/100 Ml IV 07/11/20 22:29 200 mls/hr Q12HR LUZ MARIA Administration Protocol Vancomycin HCl 1 gm in 250 mls @ 167.007 mls/hr 07/07/20 20:00 07/09/20 08:30 Vancomycin/Ns 1 Gm/250 Ml IV 07/11/20 23:59 167.007 mls/hr Q12H LUZ MARIA Administration Methylprednisolone Sodium Succinate 60 mg 07/08/20 22:00 07/09/20 05:42 Solu-Medrol IV 60 mg Q8HR LUZ MARIA Administration Morphine Sulfate 2 mg 07/06/20 02:44 Morphine IV Q4H PRN Pain, Moderate (4-6) Multi-Ingred Cream/Lotion/Oil/Oint 1 applic 07/05/20 22:08 Artificial Tears Ophth Oint OU Q4HR PRN Dry Eye(s) Ondansetron HCl 4 mg 07/06/20 02:44 Zofran IV Q8H PRN N/V unrelieved by Reglan Simple Syrup 15 ml 07/08/20 14:30 Simple Syrup FEEDTUBE PRN PRN Hypoglycemia Simple Syrup 30 ml 07/08/20 14:30 Simple Syrup FEEDTUBE PRN PRN Hypoglycemia Sodium Bicarbonate 325 mg 07/08/20 14:30 Sodium Bicarbonate FEEDTUBE PRN PRN For Clogged Feeding Tube Sodium Chloride 10 ml 07/06/20 10:00 07/08/20 22:38 Sodium Chloride Flush Syringe 10 Ml IV 10 ml BID LUZ MARIA Administration Sodium Chloride 10 ml 07/06/20 02:44 Sodium Chloride Flush Syringe 10 Ml IV PRN PRN LINE FLUSH Nutrition/Malnutrition Assess - Dietary Evaluation Nutrition/Malnutrition Findings: Nutrition Notes Start: 07/06/20 09:30 Freq: Status: Active Protocol: Document 07/08/20 13:46 EN (Rec: 07/08/20 13:58 EN [email or web address]) Co-Sign 07/08/20 13:46 LP Nutrition Notes Initial or Follow up Reassessment Current Diagnosis COPD,Heart Failure,Respiratory Failure Other Pertinent Diagnosis Acute enephalopathy, COVID-19 negative, Intracranial hemorrhage Current Diet NPO Labs/Tests Reviewed Pertinent Medications Norepinephrine Diprivan Fentanyl Solu-cortef D5w at 100 ml/hr Height 5 ft Weight 71.214 kg [place] Body Weight (kg) 45.45 BMI 30.7 Weight Status Obese Subjective/Other Information F/u for TF start and tolerance . Pt on day 3 of NPO. ok'd trickle feed at 10 ml/hr Percent of energy/protein needs met: 0%/0% Burn Absent Trauma Absent Food Allergy No Current % PO Negligible Minimum of two criteria No physical signs of malnutrition #1 Nutrition Diagnosis Inadequate oral intake Diagnosis Progress(for reassessment Continues documentation) Is patient on ventilator? Yes Is Patient Ambulatory and/or Out of Bed No REE-([facility]-confined to bed) 1443.372 Calculation Used for Recommendations [facility] Additional Notes Protein: >2 g/kg IBW: >91g Fluid: 1 ml/kcal Nutrition Intervention Change Diet Order: Begin trickle feed Nutrition Support: Promote 1.0 at 10 ml/hr Flush 50ml q4h Kcal 240 Protein (gm) 15 Fluid (mL) 201 Goal #1 Begin Trickle feed Goal #2 Meet at least 75% of energy and protein needs with TF ( when advanced to goal rate) Anticipated Discharge Needs: unable to determine at this time Follow-Up By: 07/12/20 Additional Comments F/u for trickle feed start, tolerance and TF advancement
[2020-07-09] MEDS: CEFEPIME/NS 2 GM/100 ML 2 GM/100 ML BAG IV SCH ×2 (09:39→21:04)
[2020-07-09] MEDS: FAMOTIDINE 20 MG TAB PO SCH ×2 (09:39→21:04)
[2020-07-09] MEDS: DEXTROSE 5% IN WATER 1,000 ML IV SCH ×2 (09:40→20:38)
--- NOTE | 2020-07-09 12:04 | Progress Note ---
Assessment and Plan Cultures: Coronavirus PCR: negative 07/05/2020 blood culture: no growth thus far 07/05/2020 tracheal aspirate culture: Usual respiratory neelima 07/05/2020 urine culture: Mixed growth A/P: 59-year-old female jail resident with history of CHF, COPD, gastroesophageal reflux disease, CKD, history of back surgery with spinal hardware was admitted to the hospital 07/05/2020 with altered mental status: #Shock: Unclear etiology, septic shock seems less likely. Continue empiric antibiotics. No clear infectious source identified on imaging. Remains afebrile and without leucocytosis. #Acute hypoxic respiratory failure: Pneumonia v/s pulmonary edema. BNP is elevated. Procalcitonin is low. No fever or leukocytosis. ?Aspiration pneumonitis. #Acute encephalopathy, small parenchymal hemorrhage: seen by neurosurgery. Recs: continue empiric abx: Cefepime, D3 of 5 No MRSA on any of the cultures, off pressors, will d/c Vancomycin Corbin Fraser MD, FACP [facility] ([facility] O: [phone] F: [phone] Subjective Date of service: 07/09/20 Principal diagnosis: Ac and ch hypoxic & hypercapnic resp failure; AE-COPD; Tobacco use disorder Interval history: Patient remains on the vent. Weaned off pressors. Afebrile. Restless in bed. Objective - Exam Narrative Exam: Physical Exam: Constitutional: more awake, intubated, on the vent Head, Ears, Nose: Normocephalic, atraumatic. External ears, nose normal Eyes: Conjunctivae/corneas clear. No icterus. No ptosis. Neck: intubated Oral: intubated Cardiovascular: S1, S2 + Respiratory: AE fair bilaterally and equal GI: Soft, bowel sounds + Musculoskeletal: No pedal edema, no cyanosis. Skin: No rash or abscess Hem/Lymphatic: No palpable cervical or supraclavicular nodes. No lymphangitis Psych: restless Neurological: more awake, restless, intubated, on the vent, exam limited - Constitutional Vitals: Vital Signs Temp Pulse Resp BP Pulse Ox 97.2 F L 107 H 16 90/46 87 07/09/20 03:54 07/09/20 11:01 07/09/20 11:01 07/09/20 11:01 07/09/20 11:01 Temperature -Last 24 Hours Temperature 97.2 F Temperature 97.8 F Temperature 98 F Temperature 97.8 F Temperature 98.8 F - Labs CBC & Chem 7: 07/08/20 20:41 07/08/20 07:31 Labs: Abnormal lab results 07/09/20 07/09/20 07/09/20 Range/Units 00:02 04:05 05:10 POC ABG pO2 63.4 L (83-108) mmHg ABG Hemoglobin 11.8 L (12.0-17.5) ABG Sodium 134.1 L (136.0-145.0) mmol/L ABG Glucose 137 H (65-95) mg/dL POC Glucose 118 H 132 H (70-105) mg/dL Arterial Blood Glucose 137 H (65-95) mg/dL
--- NOTE | 2020-07-09 12:18 | Progress Note ---
Assessment and Plan Acute and chronic hypoxic and hypercapnic respiratory failure: Acute exacerbation of COPD Tobacco use disorder/Nicotine dependence (on going) Hypernatremia History of coronary artery disease/CHF History of HTN Chronic narcotic dependence Chronic back pain Anxiety disorder History of depression; Obesity; BMI 32.2 - keep peep at 10 - continue to wean FiO2 for target O2 sat's > 88% - isolation per facility protoocol (COVID -ve)[? MDRO popsitive] - follow 2D ECHO report - continue systemic steroids with slow taper - Levophed for target MAP >/= 65 mmHg - continue other care as below - complete AB's per ID rec's (Vanc & Cefepime) - continue daily SAT and SBT assessment as tolerated - continue supplemental oxygen with restrictive strategies acutely re: severe COPD (PaO2 of 60 with O2 sats 88-90% is acceptable) - VAP bundle addressed (aspiration precautions; HOB > 40 degrees) - continue bronchodilators with pulmonary hygiene per RT - Avoid benzodiazepine's, reduce the possibility of delirium - Continue with fentanyl, titrate for RASS of 0 to -1 - Maintenance of sleep-wake cycle, avoid delirium - continue enteral nutritional support at goal rate as tolerated - Accuchecks with glycemic control per SSI for target blood glucose of 140-180 mg/dL while critically ill; avoid hypoglycemia - VTE prophylaxis - Stress ulcer prophylaxis - Monitor hemodynamics closely - Avoid delirium; Avoid benzodiazepines - Nicotine withdrawal precautions, nicotine patch - In view of ongoing smoking, recurrent hospital admission, will need to re- address advance directives and goals of care, once the patient is able to be a part of that discussion. Will also address smoking cessation again, once she is able to be a part of that discussion - discharge planning ongoing concurrently - continue other care per attending / other business analyst consultant's .... re-evaluate in am & prn CONDITION: CRITICAL PROGNOSIS: GUARDED CODE STATUS: FULL CODE The high probability of a clinically significant, sudden or life-threatening deterioration of the respiratory, cardiovascular, neurology, endocrine] system(s) required my full and direct attention, intervention and personal management. The aggregate critical care time was [33] minutes without overlap. Time includes spent on; [x] Data Review and interpretation [x] Patient assessment and monitoring of vital signs [x] Documentation [x] Medication orders and management Subjective Date of service: 07/09/20 Principal diagnosis: Ac and ch hypoxic & hypercapnic resp failure; AE-COPD; Tobacco use disorder Interval history: Patient is seen today for: Ac and ch hypoxic hypercapnic resp failure; AE-COPD; Tobacco use disorder/Nicotine dependence; Hypernatremia; HTN (hypotensive at presentation; Chronic narcotic dependence ; Chronic back pain; Anxiety disorder Seen and examined at bedside; 24-hour events reviewed; nursing and respiratory care staff consulted; no adverse overnight events reported to me; laying in bed; remains on MVS; weaning tenuously; no N/V/F/C; secretions manageable Objective Vital Signs - 12hr 07/09/20 07/09/20 07/09/20 00:20 00:30 00:40 Temperature Pulse Rate 62 116 H 76 Pulse Rate [ From Monitor] Respiratory 21 20 20 Rate Blood Pressure 115/52 115/52 140/78 O2 Sat by Pulse 96 93 97 Oximetry 07/09/20 07/09/20 07/09/20 00:50 01:00 01:10 Temperature Pulse Rate 64 61 60 Pulse Rate [ From Monitor] Respiratory 21 21 20 Rate Blood Pressure 111/54 112/53 112/53 O2 Sat by Pulse 97 96 97 Oximetry 07/09/20 07/09/20 07/09/20 01:20 01:30 01:40 Temperature Pulse Rate 56 L 58 L 57 L Pulse Rate [ From Monitor] Respiratory 20 20 20 Rate Blood Pressure 113/55 118/57 118/57 O2 Sat by Pulse 98 96 97 Oximetry 07/09/20 07/09/20 07/09/20 01:50 02:00 02:10 Temperature Pulse Rate 126 H 115 H 113 H Pulse Rate [ From Monitor] Respiratory 20 19 16 Rate Blood Pressure 121/70 121/70 131/88 O2 Sat by Pulse 79 L 86 88 Oximetry 07/09/20 07/09/20 07/09/20 02:20 02:30 02:40 Temperature Pulse Rate 82 65 62 Pulse Rate [ From Monitor] Respiratory 20 21 22 Rate Blood Pressure 122/83 122/83 123/52 O2 Sat by Pulse 97 94 94 Oximetry 07/09/20 07/09/20 07/09/20 02:50 03:00 03:10 Temperature Pulse Rate 58 L 55 L 56 L Pulse Rate [ From Monitor] Respiratory 22 20 20 Rate Blood Pressure 134/56 115/54 115/54 O2 Sat by Pulse 94 98 99 Oximetry 07/09/20 07/09/20 07/09/20 03:20 03:30 03:41 Temperature Pulse Rate 54 L 54 L 58 L Pulse Rate [ From Monitor] Respiratory 20 20 20 Rate Blood Pressure 122/55 122/55 O2 Sat by Pulse 99 100 97 Oximetry 07/09/20 07/09/20 07/09/20 03:51 03:54 04:01 Temperature 97.2 F L Pulse Rate 112 H 110 H Pulse Rate [ From Monitor] Respiratory 17 15 Rate Blood Pressure 127/52 155/97 O2 Sat by Pulse 87 85 Oximetry 07/09/20 07/09/20 07/09/20 04:07 04:11 04:15 Temperature Pulse Rate 107 H 105 H 105 H Pulse Rate [ From Monitor] Respiratory 20 Rate Blood Pressure 155/97 155/97 O2 Sat by Pulse 96 96 99 Oximetry 07/09/20 07/09/20 07/09/20 04:21 04:31 04:41 Temperature Pulse Rate 77 66 61 Pulse Rate [ From Monitor] Respiratory 20 20 23 Rate Blood Pressure 119/81 121/90 121/90 O2 Sat by Pulse 96 97 97 Oximetry 07/09/20 07/09/20 07/09/20 04:51 05:00 05:11 Temperature Pulse Rate 58 L 57 L 102 H Pulse Rate [ From Monitor] Respiratory 22 20 15 Rate Blood Pressure 120/62 125/58 125/58 O2 Sat by Pulse 98 99 97 Oximetry 07/09/20 07/09/20 07/09/20 05:21 05:30 05:41 Temperature Pulse Rate 105 H 116 H 116 H Pulse Rate [ From Monitor] Respiratory 12 15 19 Rate Blood Pressure 135/92 146/89 146/89 O2 Sat by Pulse 94 93 98 Oximetry 07/09/20 07/09/20 07/09/20 05:51 06:01 06:11 Temperature Pulse Rate 113 H 123 H 84 Pulse Rate [ From Monitor] Respiratory 19 17 20 Rate Blood Pressure 138/100 81/58 81/58 O2 Sat by Pulse 99 99 100 Oximetry 07/09/20 07/09/20 07/09/20 06:21 06:30 06:41 Temperature Pulse Rate 69 69 64 Pulse Rate [ From Monitor] Respiratory 20 20 20 Rate Blood Pressure 99/50 85/39 85/39 O2 Sat by Pulse 100 100 100 Oximetry 07/09/20 07/09/20 07/09/20 06:51 07:00 07:11 Temperature Pulse Rate 119 H 127 H 138 H Pulse Rate [ From Monitor] Respiratory 14 15 21 Rate Blood Pressure 155/91 154/95 154/95 O2 Sat by Pulse 95 91 90 Oximetry 07/09/20 07/09/20 07/09/20 07:21 07:30 07:41 Temperature Pulse Rate 127 H 144 H 121 H Pulse Rate [ From Monitor] Respiratory 18 18 17 Rate Blood Pressure 154/95 160/95 160/95 O2 Sat by Pulse 96 95 100 Oximetry 07/09/20 07/09/20 07/09/20 07:51 08:00 08:11 Temperature Pulse Rate 108 H 146 H 129 H Pulse Rate [ 146 H From Monitor] Respiratory 21 24 17 Rate Blood Pressure 147/91 157/103 157/103 O2 Sat by Pulse 98 85 92 Oximetry 07/09/20 07/09/20 07/09/20 08:19 08:21 08:30 Temperature Pulse Rate 116 H 117 H 120 H Pulse Rate [ From Monitor] Respiratory 19 19 Rate Blood Pressure 152/96 152/96 135/68 O2 Sat by Pulse 92 90 93 Oximetry 07/09/20 07/09/20 07/09/20 08:41 08:51 09:01 Temperature Pulse Rate 107 H 105 H 106 H Pulse Rate [ From Monitor] Respiratory 18 20 14 Rate Blood Pressure 135/68 137/71 141/77 O2 Sat by Pulse 100 Oximetry 07/09/20 07/09/20 07/09/20 09:11 09:21 09:30 Temperature Pulse Rate 138 H 117 H 74 Pulse Rate [ From Monitor] Respiratory 22 17 20 Rate Blood Pressure 141/77 150/96 103/59 O2 Sat by Pulse 83 L 92 100 Oximetry 07/09/20 07/09/20 07/09/20 09:40 09:51 10:01 Temperature Pulse Rate 100 H 119 H 126 H Pulse Rate [ From Monitor] Respiratory 20 15 18 Rate Blood Pressure 103/59 125/80 140/112 O2 Sat by Pulse 99 97 94 Oximetry 07/09/20 07/09/20 07/09/20 10:11 10:21 10:31 Temperature Pulse Rate 129 H 91 H 79 Pulse Rate [ From Monitor] Respiratory 14 21 20 Rate Blood Pressure 125/80 148/90 95/59 O2 Sat by Pulse 88 100 97 Oximetry 07/09/20 07/09/20 07/09/20 10:41 10:51 11:01 Temperature Pulse Rate 75 66 107 H Pulse Rate [ From Monitor] Respiratory 21 19 16 Rate Blood Pressure 95/59 90/46 90/46 O2 Sat by Pulse 98 99 87 Oximetry Constitutional: appears uncomfortable, other (elderly obese female with mildly increased respiratory effort at rest on MVS) Eyes: non-icteric ENT: oropharynx moist, other (ETT 23 cm THUY) Neck: supple Effort: mildly labored Ascultation: Bilateral: diminished breath sounds, rhonchi Percussion: Bilateral: not dull Cardiovascular: regular rate and rhythm, other (sinus tach) Gastrointestinal: normoactive bowel sounds, soft, non-tender, non-distended (protuberant) Integumentary: rash Extremities: no cyanosis, pink and warm, no ischemia or petechiae, edema Neurologic: non-focal exam (grossly), pupils equal and round, other (sedated, follows simple prompts intermittently) Psychiatric: other (Unable to assess re: sedation) CBC and BMP: 07/08/20 20:41 07/08/20 07:31 ABG, PT/INR, D-dimer: ABG ABG pH 7.440 (7.320-7.450) 07/09/20 04:05 POC ABG pCO2 46.2 mmHg (32.0-48.0) 07/09/20 04:05 ABG pCO2 46.7 mm Hg 07/08/20 03:20 POC ABG pO2 63.4 mmHg (83-108) L 07/09/20 04:05 ABG pO2 85.5 mm Hg (80.0-90.0) 07/08/20 03:20 POC ABG HCO3 30.7 07/09/20 04:05 ABG O2 Saturation 96.8 % (95.0-99.0) 07/08/20 03:20 PT/INR, D-dimer PT 14.5 Sec. (12.2-14.9) 07/07/20 05:15 INR 1.12 (0.87-1.13) 07/07/20 05:15 D-Dimer 1298.20 ng/mlDDU (0-234) H 07/05/20 23:06 Abnormal lab findings: Abnormal Labs 07/05/20 07/05/20 07/05/20 22:55 23:06 23:06 Hct MCV RDW Lymph % (Auto) [place] % (Auto) Lymph # (Auto) [place] # (Auto) Seg Neutrophils % Seg Neuts % (Manual) Nucleated RBC % Seg Neutrophils # PT 15.2 H INR 1.18 H D-Dimer 1298.20 H ABG pH POC ABG pCO2 POC ABG pO2 ABG pO2 227.3 H ABG HCO3 31.3 H ABG O2 Saturation 99.3 H ABG Base Excess 5.8 H ABG Hemoglobin ABG Sodium ABG Glucose Oxyhemoglobin Potassium Chloride BUN 31 H Creatinine Glucose POC Glucose Calcium 7.7 L Lactate Dehydrogenase 217 H Troponin T 0.032 H C-Reactive Protein 1.60 H NT-Pro-B Natriuret Pep Total Protein 5.2 L Albumin 2.6 L LDL Cholesterol Direct 43 L TSH Arterial Blood Glucose Arterial Blood Ionized Calcium Salicylates Acetaminophen 07/05/20 07/05/20 07/05/20 23:06 23:06 23:06 Hct MCV RDW Lymph % (Auto) [place] % (Auto) Lymph # (Auto) [place] # (Auto) Seg Neutrophils % Seg Neuts % (Manual) Nucleated RBC % Seg Neutrophils # PT INR D-Dimer ABG pH POC ABG pCO2 POC ABG pO2 ABG pO2 ABG HCO3 ABG O2 Saturation ABG Base Excess ABG Hemoglobin ABG Sodium ABG Glucose Oxyhemoglobin Potassium Chloride BUN Creatinine Glucose POC Glucose Calcium Lactate Dehydrogenase Troponin T C-Reactive Protein NT-Pro-B Natriuret Pep Total Protein Albumin LDL Cholesterol Direct TSH 15.130 H Arterial Blood Glucose Arterial Blood Ionized Calcium Salicylates < 0.3 L Acetaminophen < 5.0 L 07/05/20 07/05/20 07/06/20 23:06 23:42 06:58 Hct MCV 98 H RDW 19.8 H Lymph % (Auto) [place] % (Auto) 15.9 H Lymph # (Auto) 0.9 L [place] # (Auto) 1.0 H Seg Neutrophils % Seg Neuts % (Manual) Nucleated RBC % Seg Neutrophils # PT INR D-Dimer ABG pH 7.533 H POC ABG pCO2 20.7 L POC ABG pO2 ABG pO2 ABG HCO3 ABG O2 Saturation ABG Base Excess ABG Hemoglobin 7.6 L ABG Sodium 132.3 L ABG Glucose 55 L Oxyhemoglobin Potassium Chloride BUN Creatinine Glucose POC Glucose Calcium Lactate Dehydrogenase 217 H Troponin T C-Reactive Protein 1.60 H NT-Pro-B Natriuret Pep Total Protein Albumin LDL Cholesterol Direct TSH Arterial Blood Glucose 55 L Arterial Blood Ionized Calcium 4.3 L Salicylates Acetaminophen 07/06/20 07/06/20 07/06/20 11:09 11:09 17:46 Hct 43.0 H MCV 100 H RDW 20.8 H Lymph % (Auto) 7.2 L [place] % (Auto) 11.4 H Lymph # (Auto) 0.7 L [place] # (Auto) 1.1 H Seg Neutrophils % 81.3 H Seg Neuts % (Manual) Nucleated RBC % Seg Neutrophils # 7.9 H PT INR D-Dimer ABG pH POC ABG pCO2 POC ABG pO2 ABG pO2 ABG HCO3 ABG O2 Saturation ABG Base Excess ABG Hemoglobin ABG Sodium ABG Glucose Oxyhemoglobin Potassium Chloride BUN Creatinine Glucose POC Glucose 43 L Calcium Lactate Dehydrogenase Troponin T C-Reactive Protein NT-Pro-B Natriuret Pep 34073 H Total Protein Albumin LDL Cholesterol Direct TSH Arterial Blood Glucose Arterial Blood Ionized Calcium Salicylates Acetaminophen 07/06/20 07/06/20 07/07/20 19:31 Unknown 04:55 Hct MCV RDW Lymph % (Auto) [place] % (Auto) Lymph # (Auto) [place] # (Auto) Seg Neutrophils % Seg Neuts % (Manual) Nucleated RBC % Seg Neutrophils # PT INR D-Dimer ABG pH POC ABG pCO2 POC ABG pO2 ABG pO2 70.8 L ABG HCO3 28.9 H ABG O2 Saturation 94.5 L ABG Base Excess 3.3 H ABG Hemoglobin 11.6 L ABG Sodium ABG Glucose Oxyhemoglobin 92.7 L Potassium 3.5 L Chloride 110.4 H BUN 19 H Creatinine 0.4 L Glucose 101 H POC Glucose < 40 L Calcium 7.2 L Lactate Dehydrogenase Troponin T C-Reactive Protein NT-Pro-B Natriuret Pep Total Protein 4.4 L Albumin 2.2 L LDL Cholesterol Direct TSH Arterial Blood Glucose Arterial Blood Ionized Calcium Salicylates Acetaminophen 07/07/20 07/07/20 07/08/20 05:15 05:15 03:20 Hct MCV 98 H RDW 19.9 H Lymph % (Auto) [place] % (Auto) Lymph # (Auto) [place] # (Auto) Seg Neutrophils % Seg Neuts % (Manual) 76.0 H Nucleated RBC % 1.0 H Seg Neutrophils # PT INR D-Dimer ABG pH POC ABG pCO2 POC ABG pO2 ABG pO2 ABG HCO3 29.1 H ABG O2 Saturation ABG Base Excess 3.8 H ABG Hemoglobin ABG Sodium ABG Glucose Oxyhemoglobin Potassium Chloride BUN Creatinine 0.5 L Glucose POC Glucose Calcium 7.6 L Lactate Dehydrogenase Troponin T C-Reactive Protein NT-Pro-B Natriuret Pep Total Protein Albumin LDL Cholesterol Direct TSH Arterial Blood Glucose Arterial Blood Ionized Calcium Salicylates Acetaminophen 07/08/20 07/09/20 07/09/20 07:31 00:02 04:05 Hct MCV RDW Lymph % (Auto) [place] % (Auto) Lymph # (Auto) [place] # (Auto) Seg Neutrophils % Seg Neuts % (Manual) Nucleated RBC % Seg Neutrophils # PT INR D-Dimer ABG pH POC ABG pCO2 POC ABG pO2 63.4 L ABG pO2 ABG HCO3 ABG O2 Saturation ABG Base Excess ABG Hemoglobin 11.8 L ABG Sodium 134.1 L ABG Glucose 137 H Oxyhemoglobin Potassium Chloride 108.6 H BUN Creatinine 0.3 L Glucose 177 H POC Glucose 118 H Calcium 7.7 L Lactate Dehydrogenase Troponin T C-Reactive Protein NT-Pro-B Natriuret Pep Total Protein Albumin LDL Cholesterol Direct TSH Arterial Blood Glucose 137 H Arterial Blood Ionized Calcium Salicylates Acetaminophen 07/09/20 05:10 Hct MCV RDW Lymph % (Auto) [place] % (Auto) Lymph # (Auto) [place] # (Auto) Seg Neutrophils % Seg Neuts % (Manual) Nucleated RBC % Seg Neutrophils # PT INR D-Dimer ABG pH POC ABG pCO2 POC ABG pO2 ABG pO2 ABG HCO3 ABG O2 Saturation ABG Base Excess ABG Hemoglobin ABG Sodium ABG Glucose Oxyhemoglobin Potassium Chloride BUN Creatinine Glucose POC Glucose 132 H Calcium Lactate Dehydrogenase Troponin T C-Reactive Protein NT-Pro-B Natriuret Pep Total Protein Albumin LDL Cholesterol Direct TSH Arterial Blood Glucose Arterial Blood Ionized Calcium Salicylates Acetaminophen Chest x-ray: image reviewed (no new infiltrate / aspirate) Allied health notes reviewed: nursing
--- NOTE | 2020-07-09 12:50 | Progress Note ---
Assessment and Plan - Patient Problems (1) Respiratory failure Current Visit: Yes Status: Acute Plan to address problem: Continue supportive management, conservative cardiac management as previously outlined. Subjective Date of service: 07/09/20 Principal diagnosis: Ac and ch hypoxic & hypercapnic resp failure; AE-COPD; Tobacco use disorder Interval history: Patient is unresponsive, on the vent. On panel monitor there is a sinus tachycardia. Objective Vital Signs Temp Pulse Pulse Resp BP Pulse Ox 07/09/20 11:01 107 H 16 90/46 87 07/09/20 10:51 66 19 90/46 99 07/09/20 10:41 75 21 95/59 98 07/09/20 10:31 79 20 95/59 97 07/09/20 10:21 91 H 21 148/90 100 07/09/20 10:11 129 H 14 125/80 88 07/09/20 10:01 126 H 18 140/112 94 07/09/20 09:51 119 H 15 125/80 97 07/09/20 09:40 100 H 20 103/59 99 07/09/20 09:30 74 20 103/59 100 07/09/20 09:21 117 H 17 150/96 92 07/09/20 09:11 138 H 22 141/77 83 L 07/09/20 09:01 106 H 14 141/77 07/09/20 08:51 105 H 20 137/71 100 07/09/20 08:41 107 H 18 135/68 07/09/20 08:30 120 H 19 135/68 93 07/09/20 08:21 117 H 19 152/96 90 07/09/20 08:19 116 H 152/96 92 07/09/20 08:11 129 H 17 157/103 92 07/09/20 08:00 146 H 146 H 24 157/103 85 07/09/20 07:51 108 H 21 147/91 98 07/09/20 07:41 121 H 17 160/95 100 07/09/20 07:30 144 H 18 160/95 95 07/09/20 07:21 127 H 18 154/95 96 07/09/20 07:11 138 H 21 154/95 90 07/09/20 07:00 127 H 15 154/95 91 07/09/20 06:51 119 H 14 155/91 95 07/09/20 06:41 64 20 85/39 100 07/09/20 06:30 69 20 85/39 100 07/09/20 06:21 69 20 99/50 100 07/09/20 06:11 84 20 81/58 100 07/09/20 06:01 123 H 17 81/58 99 07/09/20 05:51 113 H 19 138/100 99 07/09/20 05:41 116 H 19 146/89 98 07/09/20 05:30 116 H 15 146/89 93 07/09/20 05:21 105 H 12 135/92 94 07/09/20 05:11 102 H 15 125/58 97 07/09/20 05:00 57 L 20 125/58 99 07/09/20 04:51 58 L 22 120/62 98 07/09/20 04:41 61 23 121/90 97 07/09/20 04:31 66 20 121/90 97 07/09/20 04:21 77 20 119/81 96 07/09/20 04:15 105 H 99 07/09/20 04:11 105 H 20 155/97 96 07/09/20 04:07 107 H 155/97 96 07/09/20 04:01 110 H 15 155/97 85 07/09/20 03:54 97.2 F L 07/09/20 03:51 112 H 17 127/52 87 07/09/20 03:41 58 L 20 97 07/09/20 03:30 54 L 20 122/55 100 07/09/20 03:20 54 L 20 122/55 99 07/09/20 03:10 56 L 20 115/54 99 07/09/20 03:00 55 L 20 115/54 98 07/09/20 02:50 58 L 22 134/56 94 07/09/20 02:40 62 22 123/52 94 07/09/20 02:30 65 21 122/83 94 07/09/20 02:20 82 20 122/83 97 07/09/20 02:10 113 H 16 131/88 88 07/09/20 02:00 115 H 19 121/70 86 07/09/20 01:50 126 H 20 121/70 79 L 07/09/20 01:40 57 L 20 118/57 97 07/09/20 01:30 58 L 20 118/57 96 07/09/20 01:20 56 L 20 113/55 98 07/09/20 01:10 60 20 112/53 97 07/09/20 01:00 61 21 112/53 96 07/09/20 00:50 64 21 111/54 97 07/09/20 00:40 76 20 140/78 97 07/09/20 00:30 116 H 20 115/52 93 07/09/20 00:20 62 21 115/52 96 07/09/20 00:10 78 20 136/72 97 07/09/20 00:00 108 H 18 136/73 99 07/08/20 23:50 110 H 12 136/73 92 07/08/20 23:40 98 H 19 95/47 95 07/08/20 23:30 65 20 140/89 96 07/08/20 23:20 82 20 140/89 94 07/08/20 23:10 83 20 129/70 96 07/08/20 23:02 97.8 F 07/08/20 23:00 115 H 21 129/67 07/08/20 22:52 105 H 15 129/67 07/08/20 22:50 88 19 129/67 07/08/20 22:40 106 H 16 129/70 97 07/08/20 22:30 117 H 16 100/47 77 L 07/08/20 22:24 60 21 100/47 94 07/08/20 22:20 61 20 100/47 97 07/08/20 22:17 64 20 100/47 94 07/08/20 22:10 71 20 129/57 92 07/08/20 22:00 113 H 16 136/66 87 07/08/20 21:50 66 20 136/66 98 07/08/20 21:40 105 H 11 L 148/80 93 07/08/20 21:30 116 H 19 148/80 98 07/08/20 21:20 108 H 20 138/73 94 07/08/20 21:10 63 20 137/78 94 07/08/20 21:00 115 H 19 138/85 88 07/08/20 20:50 101 H 19 124/59 91 07/08/20 20:40 100 H 15 133/66 86 07/08/20 20:30 80 21 138/85 87 07/08/20 20:20 96 H 19 138/85 91 07/08/20 20:19 97 H 138/85 88 07/08/20 20:10 54 L 19 113/54 89 07/08/20 20:00 98 F 54 L 19 113/54 95 07/08/20 19:50 55 L 20 106/51 93 07/08/20 19:40 55 L 20 111/54 93 07/08/20 19:30 53 L 20 111/54 96 07/08/20 19:20 53 L 20 103/52 94 07/08/20 19:15 97.8 F 53 L 20 136/72 99 07/08/20 19:10 56 L 20 107/55 89 07/08/20 19:00 54 L 20 107/55 95 07/08/20 18:50 55 L 20 106/53 95 07/08/20 18:40 56 L 21 111/54 95 07/08/20 18:30 55 L 20 111/54 94 07/08/20 18:20 101 H 21 127/64 92 07/08/20 18:10 98 H 22 83/40 91 07/08/20 18:00 63 22 83/40 94 07/08/20 17:50 63 20 89/44 95 07/08/20 17:40 76 20 121/67 95 07/08/20 17:30 85 20 121/67 94 07/08/20 17:20 105 H 19 129/78 96 07/08/20 17:10 115 H 20 130/71 96 07/08/20 17:00 92 H 19 130/71 96 07/08/20 16:50 118 H 18 151/116 95 07/08/20 16:40 110 H 12 122/59 07/08/20 16:30 80 20 122/59 97 07/08/20 16:20 118 H 21 130/67 95 07/08/20 16:10 118 H 19 121/61 95 07/08/20 16:05 120 H 121/61 95 07/08/20 16:00 98.8 F 89 89 20 121/61 96 07/08/20 15:50 114 H 22 116/63 94 20 15:46 91 H 07/08/20 15:40 85 20 138/78 94 07/08/20 15:30 101 H 12 113/56 89 07/08/20 15:20 45 L 20 113/56 99 07/08/20 15:10 45 L 20 117/55 100 07/08/20 15:00 47 L 20 112/52 100 07/08/20 14:50 46 L 20 112/52 100 07/08/20 14:40 46 L 20 105/50 100 07/08/20 14:30 46 L 20 105/50 98 07/08/20 14:20 46 L 20 103/50 97 07/08/20 14:10 50 L 20 135/64 90 07/08/20 14:00 50 L 20 139/63 86 07/08/20 13:50 76 18 141/78 85 07/08/20 13:40 46 L 20 120/53 94 07/08/20 13:30 44 L 20 120/53 94 07/08/20 13:20 50 L 20 132/60 88 07/08/20 13:10 51 L 20 132/60 88 07/08/20 13:00 49 L 20 141/64 86 07/08/20 12:58 65 141/64 84 07/08/20 12:50 49 L 20 141/64 86 - Physical Examination General: Other (intubated on the vent) HEENT: Positive: Other (Pupils fixed) Neck: Positive: neck supple Cardiac: Positive: Regular Rhythm Lungs: Positive: Decreased Breath Sounds Neuro: Positive: Weakness (Unresponsive, on the vent) Abdomen: Positive: Soft Skin: Positive: Clear Extremities: Absent: edema - Labs and Meds CBC 07/08/20 07/08/20 Range/Units 13:40 20:41 Hgb 12.3 12.3 (10.1-14.3) gm/dl Hct 39.7 39.2 (30.3-42.9) % - Allied health notes Allied health notes reviewed: nursing
[2020-07-09] MEDS: NORepinephrine/NS 4 MG-250 ML 4 MG/250 ML BAG IV SCH (15:07)
[2020-07-09] MEDS: ENOXAPARIN 40 MG/0.4 ML INJ SUB-Q SCH (21:03)
[2020-07-10] MEDS: methylPREDNISolone Sod Succinate 125 MG/2 ML INJ IV SCH ×3 (06:51→21:49)
[2020-07-10] MEDS: DEXTROSE 5% IN WATER 1,000 ML IV SCH (08:17)
--- NOTE | 2020-07-10 09:00 | Progress Note ---
Assessment and Plan Assessment and plan: (1) Acute encephalopathy Current Visit: Yes Status: Acute Plan to address problem: Etiology is unclear possibly secondary to underlying infection versus cerebral hemorrhage. Will monitor mental status. Neurosurgeon has been consulted for the cerebral hemorrhage. Hypotension -Requiring pressors -She was evaluated by ID yesterday and patient was placed on IV cefepime and vancomycin -Blood cultures are negative -COVID-19 test is negative (2) Acute respiratory failure Current Visit: Yes Status: Acute Qualifiers: Respiratory failure complication: hypoxia Qualified Code(s): J96.01 - Acute respiratory failure with hypoxia Plan to address problem: Patient currently intubated and sedated. Pulmonary/critical care is following (3) Intracranial hemorrhage Current Visit: Yes Status: Acute Plan to address problem: Repeat CAT scan noted. Neurosurgeon following. Patient has right ICA stenosis and consulted vascular surgery and recommend no intervention needed. (4) Suspected 2019 novel coronavirus infection Current Visit: Yes Status: Acute Plan to address problem: Covid test is negative (5) DVT prophylaxis Current Visit: Yes Status: Acute Plan to address problem: Patient placed on sequential compression device. (6) Full code status Current Visit: Yes Status: Acute 07/07/2020; patient was evaluated by ID and IV antibiotics discontinued. Pulmonary critical care is following. Neurosurgeon consulted in the emergency department and will follow the patient. Patient is still intubated and sedated and on mechanical ventilation, patient is still in the ED and will be transferred to ICU. Patient had episode of hypoglycemia yesterday and was treated according to hypoglycemia protocol. Patient was evaluated by cardiology for history paroxysmal A. fib and patient is not a candidate for anticoagulation because of anemia. 07/07/2020; patient has hypotension yesterday and requiring pressors and that evaluated and started her on IV cefepime and vancomycin. Patient has been followed with Dr Valles and Dr. marx before. 07/09/2020; patient has hypertension and on pressors, on IV cefepime and vancomycin. Patient was seen by neurosurgery and recommend MRI once patient is stable. No neurosurgical intervention is needed. 07/10/2020: patient is pressors, on IV cefepime day 3/5. Patient was seen by neurosurgery and recommend MRI once patient is stable. No neurosurgical intervention is needed. Pulmonary is following for vent management. The high probability of a clinically significant, sudden or life threatening deterioration of the [respiratory, neurology] system(s) required my full and direct attention, intervention and personal management. The aggregate critical care time was [35] minutes. This time is in addition to time spent performing reported procedures but includes the following: [x] Data Review and interpretation [x] Patient assessment and monitoring of vital signs [x] Documentation [x] Medication orders and management History Interval history: Patient was seen and evaluated this morning Patient is intubated and sedated Hospitalist Physical - Physical exam Narrative exam: Intubated and sedated The patient appeared well nourished and normally developed. Vital signs as documented. Head exam is unremarkable. No scleral icterus . Neck is without jugular venous distension, thyromegaly, or carotid bruits. Lungs are clear to auscultation. Cardiac exam reveals regular rate and Rhythm. Abdominal exam reveals normal bowel sounds, nontender, no organomegaly. Extremities are nonedematous and both femoral and pedal pulses are normal. 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 - Constitutional Vitals: Temp Pulse Resp BP Pulse Ox 98.9 F 48 L 16 99/55 96 07/10/20 02:59 07/10/20 08:10 07/10/20 06:31 07/10/20 08:10 07/10/20 08:10 General appearance: Present: other (intubated on the vent) HEART Score - HEART Score Troponin: Troponin T 0.032 ng/mL (0.00-0.029) H 07/05/20 23:06 Results - Labs CBC & Chem 7: 07/08/20 20:41 07/08/20 07:31 Labs: Laboratory Last Values WBC 9.8 K/mm3 (4.5-11.0) 07/07/20 05:15 RBC 3.90 M/mm3 (3.65-5.03) 07/07/20 05:15 Hgb 12.3 gm/dl (10.1-14.3) 07/08/20 20:41 Hct 39.2 % (30.3-42.9) 07/08/20 20:41 MCV 98 fl (79-97) H 07/07/20 05:15 MCH 30 pg (28-32) 07/07/20 05:15 MCHC 31 % (30-34) 07/07/20 05:15 RDW 19.9 % (13.2-15.2) H 07/07/20 05:15 Plt Count 201 K/mm3 (140-440) 07/07/20 05:15 Lymph % (Auto) 7.2 % (13.4-35.0) L 07/06/20 11:09 [place]uthrie % (Auto) [place] 07/07/20 05:15 Eos % (Auto) 0.0 % (0.0-4.3) 07/06/20 11:09 Baso % (Auto) 0.1 % (0.0-1.8) 07/06/20 11:09 Lymph # (Auto) 0.7 K/mm3 (1.2-5.4) L 07/06/20 11:09 Guthrie # (Auto) 1.1 K/mm3 (0.0-0.8) H 07/06/20 11:09 Eos # (Auto) 0.0 K/mm3 (0.0-0.4) 07/06/20 11:09 Baso # (Auto) 0.0 K/mm3 (0.0-0.1) 07/06/20 11:09 Add Manual Diff Complete 07/07/20 05:15 Total Counted 100 07/07/20 05:15 Seg Neutrophils % 81.3 % (40.0-70.0) H 07/06/20 11:09 Seg Neuts % (Manual) 76.0 % (40.0-70.0) H 07/07/20 05:15 Band Neutrophils % 0 % 07/07/20 05:15 Lymphocytes % (Manual) 24.0 % (13.4-35.0) 07/07/20 05:15 Reactive Lymphs % (Man) 0 % 07/07/20 05:15 Monocytes % (Manual) 0 % (0.0-7.3) 07/07/20 05:15 Eosinophils % (Manual) 0 % (0.0-4.3) 07/07/20 05:15 Basophils % (Manual) 0 % (0.0-1.8) 07/07/20 05:15 Metamyelocytes % 0 % 07/07/20 05:15 Myelocytes % 0 % 07/07/20 05:15 Promyelocytes % 0 % 07/07/20 05:15 Blast Cells % 0 % 07/07/20 05:15 Nucleated RBC % 1.0 % (0.0-0.9) H 07/07/20 05:15 Seg Neutrophils # 7.9 K/mm3 (1.8-7.7) H 07/06/20 11:09 Seg Neutrophils # Man 7.4 K/mm3 (1.8-7.7) 07/07/20 05:15 Band Neutrophils # 0.0 K/mm3 07/07/20 05:15 Lymphocytes # (Manual) 2.4 K/mm3 (1.2-5.4) 07/07/20 05:15 Abs React Lymphs (Man) 0.0 K/mm3 07/07/20 05:15 Monocytes # (Manual) 0.0 K/mm3 (0.0-0.8) 07/07/20 05:15 Eosinophils # (Manual) 0.0 K/mm3 (0.0-0.4) 07/07/20 05:15 Basophils # (Manual) 0.0 K/mm3 (0.0-0.1) 07/07/20 05:15 Metamyelocytes # 0.0 K/mm3 07/07/20 05:15 Myelocytes # 0.0 K/mm3 07/07/20 05:15 Promyelocytes # 0.0 K/mm3 07/07/20 05:15 Blast Cells # 0.0 K/mm3 07/07/20 05:15 WBC Morphology Not Reportable 07/07/20 05:15 Hypersegmented Neuts Not Reportable 07/07/20 05:15 Hyposegmented Neuts Not Reportable 07/07/20 05:15 Hypogranular Neuts Not Reportable 07/07/20 05:15 Smudge Cells Not Reportable 07/07/20 05:15 Toxic Granulation Not Reportable 07/07/20 05:15 Toxic Vacuolation Not Reportable 07/07/20 05:15 Dohle Bodies Not Reportable 07/07/20 05:15 Pelger-Huet Anomaly Not Reportable 07/07/20 05:15 Marissa Rods Not Reportable 07/07/20 05:15 Platelet Estimate Consistent w auto 07/07/20 05:15 Clumped Platelets Not Reportable 07/07/20 05:15 Plt Clumps, EDTA Not Reportable 07/07/20 05:15 Large Platelets Not Reportable 07/07/20 05:15 Giant Platelets Not Reportable 07/07/20 05:15 Platelet Satelliting Not Reportable 07/07/20 05:15 Plt Morphology Comment Not Reportable 07/07/20 05:15 RBC Morphology Not Reportable 07/07/20 05:15 Dimorphic RBCs Not Reportable 07/07/20 05:15 Polychromasia Not Reportable 07/07/20 05:15 Hypochromasia Not Reportable 07/07/20 05:15 Poikilocytosis Not Reportable 07/07/20 05:15 Anisocytosis 1+ 07/07/20 05:15 Microcytosis Not Reportable 07/07/20 05:15 Macrocytosis Few 07/07/20 05:15 Spherocytes Not Reportable 07/07/20 05:15 Pappenheimer Bodies Not Reportable 07/07/20 05:15 Sickle Cells Not Reportable 07/07/20 05:15 Target Cells Not Reportable 07/07/20 05:15 Tear Drop Cells Not Reportable 07/07/20 05:15 Ovalocytes Rare 07/07/20 05:15 Helmet Cells Not Reportable 07/07/20 05:15 Griggs-Stiles Bodies Not Reportable 07/07/20 05:15 [place] Rings Not Reportable 07/07/20 05:15 Demi Cells Not Reportable 07/07/20 05:15 Bite Cells Not Reportable 07/07/20 05:15 Crenated Cell Not Reportable 07/07/20 05:15 Elliptocytes Not Reportable 07/07/20 05:15 Acanthocytes (Spur) Not Reportable 07/07/20 05:15 Rouleaux Not Reportable 07/07/20 05:15 Hemoglobin C Crystals Not Reportable 07/07/20 05:15 Schistocytes Rare 07/07/20 05:15 Malaria parasites Not Reportable 07/07/20 05:15 Ab Bodies Not Reportable 07/07/20 05:15 Hem Pathologist Commnt No 07/07/20 05:15 PT 14.5 Sec. (12.2-14.9) 07/07/20 05:15 INR 1.12 (0.87-1.13) 07/07/20 05:15 APTT 30.8 Sec. (24.2-36.6) 07/05/20 23:06 D-Dimer 1298.20 ng/mlDDU (0-234) H 07/05/20 23:06 ABG pH 7.399 (7.320-7.450) 07/10/20 04:15 POC ABG pCO2 46.6 mmHg (32.0-48.0) 07/10/20 04:15 ABG pCO2 46.7 mm Hg 07/08/20 03:20 POC ABG pO2 60.7 mmHg (83-108) L 07/10/20 04:15 ABG pO2 85.5 mm Hg (80.0-90.0) 07/08/20 03:20 POC ABG HCO3 28.2 07/10/20 04:15 ABG HCO3 29.1 mmol/L (20.0-26.0) H 07/08/20 03:20 ABG O2 Saturation 96.8 % (95.0-99.0) 07/08/20 03:20 ABG O2 Content 16.6 (0.0-44) 07/08/20 03:20 POC ABG Base Excess 2.8 07/10/20 04:15 ABG Base Excess 3.8 mmol/L (-2.0-3.0) H 07/08/20 03:20 ABG Hemoglobin 12.0 (12.0-17.5) 07/10/20 04:15 ABG Carboxyhemoglobin 1.3 % (0.0-5.0) 07/08/20 03:20 ABG Methemoglobin 0.5 % (0.0-1.5) 07/08/20 03:20 ABG Sodium 137.6 mmol/L (136.0-145.0) 07/10/20 04:15 ABG Potassium 3.7 mmol/L (3.40-4.50) 07/10/20 04:15 ABG Chloride 104.0 mmol/L (98-107) 07/10/20 04:15 ABG Glucose 149 mg/dL (65-95) H 07/10/20 04:15 Oxyhemoglobin 95.1 % (95.0-99.0) 07/08/20 03:20 FiO2 70.0 07/10/20 04:15 Sodium 144 mmol/L (137-145) 07/08/20 07:31 Potassium 3.8 mmol/L (3.6-5.0) 07/08/20 07:31 Chloride 108.6 mmol/L (98-107) H 07/08/20 07:31 Carbon Dioxide 29 mmol/L (22-30) 07/08/20 07:31 Anion Gap 10 mmol/L 07/08/20 07:31 BUN 7 mg/dL (7-17) 07/08/20 07:31 Creatinine 0.3 mg/dL (0.6-1.2) L 07/08/20 07:31 Estimated GFR > 60 ml/min 07/08/20 07:31 BUN/Creatinine Ratio 23 % 07/08/20 07:31 Glucose 177 mg/dL (65-100) H 07/08/20 07:31 POC Glucose 127 mg/dL (70-105) H 07/10/20 05:25 Lactic Acid 0.80 mmol/L (0.7-2.0) 07/05/20 23:06 Calcium 7.7 mg/dL (8.4-10.2) L 07/08/20 07:31 Magnesium 2.00 mg/dL (1.7-2.3) 07/05/20 23:06 Ferritin 60.8 ng/mL (10.0-200.0) 07/05/20 23:06 Total Bilirubin 0.30 mg/dL (0.1-1.2) 07/06/20 Unknown AST 13 units/L (5-40) 07/06/20 Unknown ALT 10 units/L (7-56) 07/06/20 Unknown Alkaline Phosphatase 71 units/L (35-129) 07/06/20 Unknown Ammonia 40.0 umol/L (25-60) 07/05/20 23:06 Lactate Dehydrogenase 217 units/L (91-180) H 07/05/20 23:06 Lactate Dehydrogenase 217 units/L (91-180) H 07/05/20 23:06 Total Creatine Kinase 55 units/L (30-135) 07/05/20 23:06 Troponin T 0.032 ng/mL (0.00-0.029) H 07/05/20 23:06 C-Reactive Protein 1.60 mg/dL (0.00-1.30) H 07/05/20 23:06 C-Reactive Protein 1.60 mg/dL (0.00-1.30) H 07/05/20 23:06 NT-Pro-B Natriuret Pep 47818 pg/mL (0-900) H 07/06/20 11:09 Total Protein 4.4 g/dL (6.3-8.2) L 07/06/20 Unknown Albumin 2.2 g/dL (3.9-5) L 07/06/20 Unknown Albumin/Globulin Ratio 1.0 % 07/06/20 Unknown Triglycerides 126 mg/dL (2-149) 07/05/20 23:06 Cholesterol 109 mg/dL (50-199) 07/05/20 23:06 LDL Cholesterol Direct 43 mg/dL (50-130) L 07/05/20 23:06 HDL Cholesterol 42 mg/dL (40-59) 07/05/20 23:06 Cholesterol/HDL Ratio 2.59 % 07/05/20 23:06 Procalcitonin < 0.05 ng/mL (<0.15) 07/05/20 23:06 TSH 15.130 mlU/mL (0.270-4.200) H 07/05/20 23:06 Free T4 0.79 ng/dL (0.76-1.46) 07/06/20 11:09 Arterial Blood Glucose 149 mg/dL (65-95) H 07/10/20 04:15 Arterial Blood Ionized Calcium 4.9 mg/dL (4.6-5.3) 07/10/20 04:15 Urine Color Mildred (Yellow) 07/05/20 Unknown Urine Turbidity Clear (Clear) 07/05/20 Unknown Urine pH 5.0 (5.0-7.0) 07/05/20 Unknown Ur Specific Mystic 1.025 (1.003-1.030) 07/05/20 Unknown Urine Protein 30 mg/dl mg/dL (Negative) 07/05/20 Unknown Urine Glucose (UA) Neg mg/dL (Negative) 07/05/20 Unknown Urine Ketones Neg mg/dL (Negative) 07/05/20 Unknown Urine Blood Neg (Negative) 07/05/20 Unknown Urine Nitrite Neg (Negative) 07/05/20 Unknown Urine Bilirubin Neg (Negative) 07/05/20 Unknown Urine Urobilinogen 4.0 mg/dL (<2.0) 07/05/20 Unknown Ur Leukocyte Esterase Neg (Negative) 07/05/20 Unknown Urine WBC (Auto) 2.0 /HPF (0.0-6.0) 07/05/20 Unknown Urine RBC (Auto) 1.0 /HPF (0.0-6.0) 07/05/20 Unknown U Epithel Cells (Auto) 1.0 /HPF (0-13.0) 07/05/20 Unknown Hyaline Casts 16 /LPF 07/05/20 Unknown Urine Mucus Few /HPF 07/05/20 Unknown Salicylates < 0.3 mg/dL (2.8-20.0) L 07/05/20 23:06 Acetaminophen < 5.0 ug/mL (10.0-30.0) L 07/05/20 23:06 Plasma/Serum Alcohol < 0.01 % (0-0.07) 07/05/20 23:06 Coronavirus (PCR) Negative (Negative) 07/06/20 Unknown Blood Type O POSITIVE 07/05/20 23:10 Antibody Screen Negative 07/05/20 23:10 Microbiology: Microbiology 07/05/20 23:06 Peripheral/Venous Blood Culture - Preliminary NO GROWTH AFTER 4 DAYS 07/05/20 23:42 Peripheral/Venous Blood Culture - Preliminary NO GROWTH AFTER 4 DAYS 07/08/20 Unknown Nares - Left MRSA Culture - Preliminary Roberts/IV: Voiding Method Indwelling Catheter IV Catheter Type [Right Upper PICC Line arm] IV Catheter Type [Right INT / Saline Lock External Jugular] IV Catheter Type [Left Triple Lumen Cath Internal Jugular] Active Medications - Current Medications Current Medications: Generic Name Dose Route Start Last Admin Trade Name Serge PRN Reason Stop Dose Admin Acetaminophen 650 mg 07/06/20 02:44 Tylenol WA Q4H PRN Pain, Mild (1-3) Lipase/Protease/Amylase 1 each 07/08/20 14:[address] 10,500 Unit FEEDTUBE PRN PRN For Clogged Feeding Tube Bisacodyl 10 mg 07/06/20 02:44 Dulcolax WA QDAY PRN Constipation unrelieved by MOM Dextrose 0 ml 07/06/20 19:30 07/06/20 19:25 D50w (25gm) Syringe IV 30 ml ONCE PRN Administration Hypoglycemia Enoxaparin Sodium 40 mg 07/08/20 22:00 07/09/20 21:03 Enoxaparin SUB-Q 40 mg QDAY@2200 LUZ MARIA Administration Protocol Famotidine 20 mg 07/09/20 10:00 07/09/20 21:04 Pepcid PO 20 mg BID LUZ MARIA Administration Fentanyl 50 mcg 07/05/20 22:08 07/06/20 01:20 Sublimaze IV 50 mcg Q10MIN PRN Administration ANALGESIA Hydralazine HCl 5 mg 07/06/20 02:30 Apresoline IV Q30MIN PRN Hypertension Hydrophilic Ointment 1 applic 07/05/20 22:08 Vaseline Lip Therapy TP Q2HR PRN Dry Lips Fentanyl Citrate 2,000 mcg in 100 mls @ 3.561 mls/hr 07/05/20 23:00 07/10/20 08:45 Fentanyl Drip Premix IV 4 mcg/kg/hr TITR LUZ MARIA 14.243 mls/hr Titration Protocol 1 MCG/KG/HR Propofol 1,000 mg in 100 mls @ 2.136 mls/hr 07/06/20 04:00 07/10/20 08:15 Diprivan 10 Mg/Ml IV 15 mcg/kg/min TITR LUZ MARIA 6.409 mls/hr Titration Protocol 5 MCG/KG/MIN Dextrose 1,000 mls @ 100 mls/hr 07/06/20 20:00 07/10/20 08:17 D5w IV 100 mls/hr DIRECT LUZ MARIA Administration Norepinephrine 4 mg in 250 mls @ 7.5 mls/hr 07/06/20 22:00 07/10/20 01:50 Levophed Drip 4 Mg/Ns 250 Ml IV 3 mcg/min TITR LUZ MARIA 11.25 mls/hr Titration Protocol 2 MCG/MIN Dopamine HCl/Dextrose 800 mg in 250 mls @ 2.671 mls/hr 07/07/20 04:00 Intropin Drip 800 Mg/D5w 250 Ml IV TITR LUZ MARIA Protocol 2 MCG/KG/MIN Cefepime HCl 2 gm in 100 mls @ 200 mls/hr 07/07/20 13:00 07/09/20 21:04 Cefepime/Ns 2 Gm/100 Ml IV 07/11/20 22:29 200 mls/hr Q12HR LUZ MARIA Administration Protocol Methylprednisolone Sodium Succinate 60 mg 07/08/20 22:00 07/10/20 06:51 Solu-Medrol IV 60 mg Q8HR LUZ MARIA Administration Morphine Sulfate 2 mg 07/06/20 02:44 Morphine IV Q4H PRN Pain, Moderate (4-6) Multi-Ingred Cream/Lotion/Oil/Oint 1 applic 07/05/20 22:08 Artificial Tears Ophth Oint OU Q4HR PRN Dry Eye(s) Ondansetron HCl 4 mg 07/06/20 02:44 Zofran IV Q8H PRN N/V unrelieved by Reglan Simple Syrup 15 ml 07/08/20 14:30 Simple Syrup FEEDTUBE PRN PRN Hypoglycemia Simple Syrup 30 ml 07/08/20 14:30 Simple Syrup FEEDTUBE PRN PRN Hypoglycemia Sodium Bicarbonate 325 mg 07/08/20 14:30 Sodium Bicarbonate FEEDTUBE PRN PRN For Clogged Feeding Tube Sodium Chloride 10 ml 07/06/20 10:00 07/09/20 09:40 Sodium Chloride Flush Syringe 10 Ml IV 10 ml BID LUZ MARIA Administration Sodium Chloride 10 ml 07/06/20 02:44 Sodium Chloride Flush Syringe 10 Ml IV PRN PRN LINE FLUSH Nutrition/Malnutrition Assess - Dietary Evaluation Nutrition/Malnutrition Findings: Nutrition Notes Start: 07/06/20 09:30 Freq: Status: Active Protocol: Document 07/08/20 13:46 EN (Rec: 07/08/20 13:58 EN [email or web address]) Co-Sign 07/08/20 13:46 LP Nutrition Notes Initial or Follow up Reassessment Current Diagnosis COPD,Heart Failure,Respiratory Failure Other Pertinent Diagnosis Acute enephalopathy, COVID-19 negative, Intracranial hemorrhage Current Diet NPO Labs/Tests Reviewed Pertinent Medications Norepinephrine Diprivan Fentanyl Solu-cortef D5w at 100 ml/hr Height 5 ft Weight 71.214 kg [place] Body Weight (kg) 45.45 BMI 30.7 Weight Status Obese Subjective/Other Information F/u for TF start and tolerance . Pt on day 3 of NPO. MD guzman'janae trickle feed at 10 ml/hr Percent of energy/protein needs met: 0%/0% Burn Absent Trauma Absent Food Allergy No Current % PO Negligible Minimum of two criteria No physical signs of malnutrition #1 Nutrition Diagnosis Inadequate oral intake Diagnosis Progress(for reassessment Continues documentation) Is patient on ventilator? Yes Is Patient Ambulatory and/or Out of Bed No REE-([facility]-confined to bed) 1443.372 Calculation Used for Recommendations [facility] Additional Notes Protein: >2 g/kg IBW: >91g Fluid: 1 ml/kcal Nutrition Intervention Change Diet Order: Begin trickle feed Nutrition Support: Promote 1.0 at 10 ml/hr Flush 50ml q4h Kcal 240 Protein (gm) 15 Fluid (mL) 201 Goal #1 Begin Trickle feed Goal #2 Meet at least 75% of energy and protein needs with TF ( when advanced to goal rate) Anticipated Discharge Needs: unable to determine at this time Follow-Up By: 07/12/20 Additional Comments F/u for trickle feed start, tolerance and TF advancement
[2020-07-10] MEDS: fentaNYL DRIP Premix 2,000 MCG/100 ML BAG IV SCH ×2 (09:19→17:07)
[2020-07-10] MEDS: CEFEPIME/NS 2 GM/100 ML 2 GM/100 ML BAG IV SCH ×2 (09:19→21:49)
[2020-07-10] MEDS: FAMOTIDINE 20 MG TAB PO SCH ×2 (09:19→21:49)
--- NOTE | 2020-07-10 10:58 | Progress Note ---
Assessment and Plan - Patient Problems (1) Respiratory failure Current Visit: Yes Status: Acute Plan to address problem: Continue supportive management, conservative cardiac management as previously outlined. Subjective Date of service: 07/10/20 Principal diagnosis: Ac and ch hypoxic & hypercapnic resp failure; AE-COPD; Tobacco use disorder Interval history: Patient is unresponsive, on the vent. On radiation monitor there is a mild sinus tachycardia. Objective Vital Signs Temp Pulse Pulse Resp BP Pulse Ox 07/10/20 10:51 56 L 20 135/66 95 07/10/20 10:41 105 H 14 149/91 91 07/10/20 10:30 98 H 14 154/98 90 07/10/20 10:21 60 20 149/91 93 07/10/20 10:11 101 H 13 143/89 89 07/10/20 10:00 100 H 18 143/89 91 07/10/20 09:51 104 H 17 132/98 90 07/10/20 09:41 96 H 18 145/98 88 07/10/20 09:30 91 H 14 145/98 89 07/10/20 09:21 49 L 20 118/68 97 07/10/20 09:11 51 L 20 117/70 96 07/10/20 09:00 51 L 20 117/70 97 07/10/20 08:51 52 L 20 136/73 94 07/10/20 08:41 82 16 112/64 88 07/10/20 08:30 50 L 20 112/64 97 07/10/20 08:21 50 L 20 103/61 96 07/10/20 08:11 48 L 20 99/55 96 07/10/20 08:10 48 L 99/55 96 07/10/20 08:00 49 L 20 99/55 96 07/10/20 07:51 49 L 20 92/50 96 07/10/20 07:41 52 L 20 105/54 98 07/10/20 07:31 57 L 20 105/54 97 07/10/20 07:21 101 H 13 134/96 94 07/10/20 07:11 54 L 20 127/88 98 07/10/20 07:00 96 H 13 127/88 94 07/10/20 06:51 104 H 11 L 124/73 95 07/10/20 06:41 105 H 14 122/107 94 07/10/20 06:31 117 H 16 122/107 93 07/10/20 06:21 119 H 21 135/97 93 07/10/20 06:11 107 H 13 105/59 93 07/10/20 06:01 92 H 11 L 147/96 91 07/10/20 05:51 49 L 20 111/65 98 07/10/20 05:41 48 L 17 102/54 99 07/10/20 05:30 45 L 20 105/59 98 07/10/20 05:21 48 L 20 102/54 97 07/10/20 05:11 48 L 20 103/59 97 07/10/20 05:00 48 L 20 103/59 98 07/10/20 04:51 50 L 20 114/64 97 07/10/20 04:41 53 L 20 136/90 96 07/10/20 04:31 83 10 L 136/90 89 07/10/20 04:21 74 16 116/60 96 07/10/20 04:15 50 L 116/60 96 07/10/20 04:11 49 L 20 119/68 95 07/10/20 04:00 50 L 50 L 20 119/68 94 07/10/20 03:51 48 L 20 117/63 96 07/10/20 03:41 49 L 20 115/62 95 07/10/20 03:30 49 L 20 115/62 93 07/10/20 03:21 50 L 20 111/58 94 07/10/20 03:11 50 L 20 113/61 94 07/10/20 03:00 52 L 20 113/61 94 07/10/20 02:59 98.9 F 07/10/20 02:51 50 L 20 109/62 94 07/10/20 02:41 51 L 20 106/61 94 07/10/20 02:30 51 L 20 106/61 94 07/10/20 02:21 52 L 20 105/58 95 07/10/20 02:11 53 L 20 98/55 95 07/10/20 02:00 53 L 20 98/55 94 07/10/20 01:51 54 L 20 88/50 95 07/10/20 01:41 55 L 20 89/50 96 07/10/20 01:31 63 20 89/50 98 07/10/20 01:21 75 20 135/83 97 07/10/20 01:11 112 H 13 143/89 93 07/10/20 01:00 110 H 13 143/89 94 07/10/20 00:51 104 H 12 144/86 96 07/10/20 00:41 118 H 13 121/103 93 07/10/20 00:30 117 H 13 121/103 92 07/10/20 00:21 111 H 13 128/107 92 07/10/20 00:11 104 H 12 92/73 93 07/10/20 00:01 105 H 16 92/73 90 07/10/20 00:00 55 L 114 H 11 L 94 07/09/20 23:51 93 H 14 107/58 97 07/09/20 23:47 57 L 107/58 97 07/09/20 23:41 55 L 20 100/51 97 07/09/20 23:30 53 L 20 100/51 98 07/09/20 23:21 53 L 20 98/52 96 07/09/20 23:11 54 L 20 108/56 96 07/09/20 23:00 98.8 F 57 L 20 108/56 97 07/09/20 22:51 61 20 101/55 91 07/09/20 22:41 89 13 101/55 85 07/09/20 22:30 58 L 20 101/55 98 07/09/20 22:21 57 L 20 96/50 98 07/09/20 22:11 59 L 20 91/47 97 07/09/20 22:00 59 L 19 91/47 96 07/09/20 21:51 62 20 97/49 95 07/09/20 21:41 66 20 127/69 94 07/09/20 21:30 82 20 127/69 91 07/09/20 21:21 76 20 131/79 92 07/09/20 21:11 106 H 9 L 108/54 91 07/09/20 21:00 79 20 108/54 94 07/09/20 20:57 82 20 136/72 91 07/09/20 20:51 105 H 16 136/72 91 07/09/20 20:47 99 H 152/67 92 2020 20:41 92 H 20 152/67 92 07/09/20 20:30 100 H 20 152/67 89 11/20/20 20:21 121 H 12 106/41 88 2020 20:11 117 H 14 106/41 88 2020 20:01 106 H 22 106/41 93 2020 20:00 81 78 19 93 2020 19:51 95 H 12 124/68 91 2020 19:47 99.2 F 2020 19:41 116 H 13 139/91 89 2020 19:30 104 H 13 139/91 93 2020 19:21 112 H 13 134/91 90 2020 19:11 115 H 15 142/96 88 2020 19:01 115 H 12 142/96 91 07/09/20 18:51 83 20 123/61 95 2020 18:41 87 20 125/61 93 20 18:30 83 20 125/61 93 20 18:21 118 H 14 140/93 91 07/09/20 18:11 90 20 129/96 93 07/09/20 18:01 109 H 16 129/96 92 07/09/20 17:51 111 H 14 146/88 90 20 17:41 66 20 142/92 96 07/09/20 17:31 111 H 15 142/92 92 07/09/20 17:21 110 H 17 153/93 92 07/09/20 17:11 67 20 148/92 92 07/09/20 17:00 93 H 21 148/92 07/09/20 16:51 66 127/67 97 07/09/20 16:50 68 20 127/67 97 07/09/20 16:41 81 20 133/107 92 2020 16:31 112 H 12 133/107 93 07/09/20 16:21 100 H 16 115/71 94 2020 16:11 94 H 20 115/71 93 20 16:01 98 H 18 118/86 81 L 07/09/20 16:00 98.3 F 110 H 98 H 18 91 07/09/20 15:51 93 H 20 115/71 89 2020 15:41 55 L 20 113/63 96 07/09/20 15:31 56 L 20 113/63 99 07/09/20 15:21 54 L 18 82/46 100 07/09/20 15:11 62 19 87/47 07/09/20 15:00 64 20 79/42 07/09/20 14:51 67 21 87/47 07/09/20 14:41 70 20 100/53 97 07/09/20 14:31 106 H 11 L 123/60 93 07/09/20 14:21 79 20 119/67 97 07/09/20 14:11 115 H 15 100/53 93 07/09/20 14:01 77 20 100/53 95 07/09/20 13:51 115 H 14 131/98 96 07/09/20 13:41 87 20 133/71 93 07/09/20 13:31 114 H 12 133/71 93 07/09/20 13:28 112 H 133/71 95 07/09/20 13:21 113 H 10 L 141/76 92 07/09/20 13:11 81 20 132/81 97 07/09/20 13:00 110 H 11 L 132/81 93 07/09/20 12:51 80 20 123/70 96 07/09/20 12:41 110 H 12 121/70 92 07/09/20 12:30 85 20 121/70 95 07/09/20 12:21 117 H 13 112/60 95 07/09/20 12:11 85 20 156/95 96 07/09/20 12:00 98.1 F 126 H 119 H 11 L 156/95 92 07/09/20 11:51 129 H 15 148/85 93 07/09/20 11:40 122 H 13 154/95 07/09/20 11:31 120 H 13 90/46 07/09/20 11:21 125 H 19 90/46 07/09/20 11:11 95 H 20 90/46 07/09/20 11:01 107 H 16 90/46 87 - Physical Examination General: Other (intubated on the vent) HEENT: Positive: Other (Pupils fixed) Neck: Positive: neck supple Cardiac: Positive: Regular Rhythm Lungs: Positive: Decreased Breath Sounds Neuro: Positive: Weakness (Unresponsive, on the vent) Abdomen: Positive: Soft Skin: Positive: Clear Extremities: Absent: edema - Allied health notes Allied health notes reviewed: nursing
--- NOTE | 2020-07-10 12:24 | Progress Note ---
Assessment and Plan Acute and chronic hypoxic and hypercapnic respiratory failure: Acute exacerbation of COPD Tobacco use disorder/Nicotine dependence (on going) Hypernatremia Bradycardia History of coronary artery disease/CHF History of HTN Chronic narcotic dependence Chronic back pain Anxiety disorder History of depression - Stop propofol in view of significant bradycardia, start Midazolam VTE prophylaxis- with SCD, CT head shows 2 small foci of parenchymal hemorrhage - wean FiO2 for target O2 sat's > 88%. PEEP at 10, closely monitor airway pressures - follow 2D ECHO report - Continue to taper systemic steroids - wean Levophed for target MAP >/= 65 mmHg, currently on 2mcg of Norepinephrine -Cardiology consult for bradycardia, get 12 lead EKG - complete AB's per ID rec's (Vanc & Cefepime) - continue daily assessment of readiness to wean - continue supplemental oxygen with restrictive strategies re: severe COPD (PaO2 of 60 with O2 sats 88-90% is acceptable) - VAP bundle addressed (aspiration precautions; HOB > 40 degrees) - continue bronchodilators with pulmonary hygiene per RT - Titrate sedation for RASS of 0 to -1 - Maintenance of sleep-wake cycle, avoid delirium - continue enteral nutritional support at goal rate as tolerated - Accuchecks with glycemic control per SSI for target blood glucose of 140-180 mg/dL while critically ill; avoid hypoglycemia -Free water flushes and hypotonic solution to treat hypernatremia - VTE prophylaxis -SCDs - Stress ulcer prophylaxis -Famotidine - Monitor hemodynamics closely - Avoid delirium; Avoid benzodiazepines - Nicotine withdrawal precautions, nicotine patch -Mobility, PT/OT, range of motion exercises - In view of ongoing smoking, recurrent hospital admission, will need to re- address advance directives and goals of care, once the patient is able to be a part of that discussion. Will also address smoking cessation again, once she is able to be a part of that discussion - discharge planning ongoing concurrently - continue other care per attending / other consultants .... re-evaluate in am & prn CONDITION: CRITICAL PROGNOSIS: GUARDED CODE STATUS: FULL CODE The high probability of a clinically significant, sudden or life-threatening deterioration of the respiratory, cardiovascular, neurology, endocrine] system(s) required my full and direct attention, intervention and personal management. The aggregate critical care time was [34] minutes without overlap. Time includes spent on; [x] Data Review and interpretation [x] Patient assessment and monitoring of vital signs [x] Documentation [x] Medication orders and management Subjective Date of service: 07/10/20 Principal diagnosis: Ac and ch hypoxic & hypercapnic resp failure; AE-COPD; Tobacco use disorder Interval history: Patient is seen today for: Ac and ch hypoxic hypercapnic resp failure; AE-COPD; Tobacco use disorder/Nicotine dependence; Hypernatremia; HTN (hypotensive at presentation; Chronic narcotic dependence ; Chronic back pain; Anxiety disorder Seen and examined at bedside; 24-hour events reviewed; nursing and respiratory care staff consulted; no adverse overnight events reported to me; laying in bed; remains on MVS; FiO2 at 80% with peep at 10; responsive; deniesd acute chest pain; No emesis or overt aspiration; afebrile Objective Vital Signs - 12hr 07/10/20 07/10/20 07/10/20 00:30 00:41 00:51 Temperature Pulse Rate 117 H 118 H 104 H Pulse Rate [ From Monitor] Respiratory 13 13 12 Rate Blood Pressure 121/103 121/103 144/86 O2 Sat by Pulse 92 93 96 Oximetry 07/10/20 07/10/20 07/10/20 01:00 01:11 01:21 Temperature Pulse Rate 110 H 112 H 75 Pulse Rate [ From Monitor] Respiratory 13 13 20 Rate Blood Pressure 143/89 143/89 135/83 O2 Sat by Pulse 94 93 97 Oximetry 07/10/20 07/10/20 07/10/20 01:31 01:41 01:51 Temperature Pulse Rate 63 55 L 54 L Pulse Rate [ From Monitor] Respiratory 20 20 20 Rate Blood Pressure 89/50 89/50 88/50 O2 Sat by Pulse 98 96 95 Oximetry 07/10/20 07/10/20 07/10/20 02:00 02:11 02:21 Temperature Pulse Rate 53 L 53 L 52 L Pulse Rate [ From Monitor] Respiratory 20 20 20 Rate Blood Pressure 98/55 98/55 105/58 O2 Sat by Pulse 94 95 95 Oximetry 07/10/20 07/10/20 07/10/20 02:30 02:41 02:51 Temperature Pulse Rate 51 L 51 L 50 L Pulse Rate [ From Monitor] Respiratory 20 20 20 Rate Blood Pressure 106/61 106/61 109/62 O2 Sat by Pulse 94 94 94 Oximetry 07/10/20 07/10/20 07/10/20 02:59 03:00 03:11 Temperature 98.9 F Pulse Rate 52 L 50 L Pulse Rate [ From Monitor] Respiratory 20 20 Rate Blood Pressure 113/61 113/61 O2 Sat by Pulse 94 94 Oximetry 07/10/20 07/10/20 07/10/20 03:21 03:30 03:41 Temperature Pulse Rate 50 L 49 L 49 L Pulse Rate [ From Monitor] Respiratory 20 20 20 Rate Blood Pressure 111/58 115/62 115/62 O2 Sat by Pulse 94 93 95 Oximetry 07/10/20 07/10/20 07/10/20 03:51 04:00 04:11 Temperature Pulse Rate 48 L 50 L 49 L Pulse Rate [ 50 L From Monitor] Respiratory 20 20 20 Rate Blood Pressure 117/63 119/68 119/68 O2 Sat by Pulse 96 94 95 Oximetry 07/10/20 07/10/20 07/10/20 04:15 04:21 04:31 Temperature Pulse Rate 50 L 74 83 Pulse Rate [ From Monitor] Respiratory 16 10 L Rate Blood Pressure 116/60 116/60 136/90 O2 Sat by Pulse 96 96 89 Oximetry 07/10/20 07/10/20 07/10/20 04:41 04:51 05:00 Temperature Pulse Rate 53 L 50 L 48 L Pulse Rate [ From Monitor] Respiratory 20 20 20 Rate Blood Pressure 136/90 114/64 103/59 O2 Sat by Pulse 96 97 98 Oximetry 07/10/20 07/10/20 07/10/20 05:11 05:21 05:30 Temperature Pulse Rate 48 L 48 L 45 L Pulse Rate [ From Monitor] Respiratory 20 20 20 Rate Blood Pressure 103/59 102/54 105/59 O2 Sat by Pulse 97 97 98 Oximetry 07/10/20 07/10/20 07/10/20 05:41 05:51 06:01 Temperature Pulse Rate 48 L 49 L 92 H Pulse Rate [ From Monitor] Respiratory 17 20 11 L Rate Blood Pressure 102/54 111/65 147/96 O2 Sat by Pulse 99 98 91 Oximetry 07/10/20 07/10/20 07/10/20 06:11 06:21 06:31 Temperature Pulse Rate 107 H 119 H 117 H Pulse Rate [ From Monitor] Respiratory 13 21 16 Rate Blood Pressure 105/59 135/97 122/107 O2 Sat by Pulse 93 93 93 Oximetry 07/10/20 07/10/20 07/10/20 06:41 06:51 07:00 Temperature Pulse Rate 105 H 104 H 96 H Pulse Rate [ From Monitor] Respiratory 14 11 L 13 Rate Blood Pressure 122/107 124/73 127/88 O2 Sat by Pulse 94 95 94 Oximetry 07/10/20 07/10/20 07/10/20 07:11 07:21 07:31 Temperature Pulse Rate 54 L 101 H 57 L Pulse Rate [ From Monitor] Respiratory 20 13 20 Rate Blood Pressure 127/88 134/96 105/54 O2 Sat by Pulse 98 94 97 Oximetry 07/10/20 07/10/20 07/10/20 07:41 07:51 08:00 Temperature Pulse Rate 52 L 49 L 49 L Pulse Rate [ 52 L From Monitor] Respiratory 20 20 20 Rate Blood Pressure 105/54 92/50 99/55 O2 Sat by Pulse 98 96 96 Oximetry 07/10/20 07/10/20 07/10/20 08:10 08:11 08:21 Temperature Pulse Rate 48 L 48 L 50 L Pulse Rate [ From Monitor] Respiratory 20 20 Rate Blood Pressure 99/55 99/55 103/61 O2 Sat by Pulse 96 96 96 Oximetry 07/10/20 07/10/20 07/10/20 08:30 08:41 08:51 Temperature Pulse Rate 50 L 82 52 L Pulse Rate [ From Monitor] Respiratory 20 16 20 Rate Blood Pressure 112/64 112/64 136/73 O2 Sat by Pulse 97 88 94 Oximetry 07/10/20 07/10/20 07/10/20 09:00 09:11 09:21 Temperature Pulse Rate 51 L 51 L 49 L Pulse Rate [ From Monitor] Respiratory 20 20 20 Rate Blood Pressure 117/70 117/70 118/68 O2 Sat by Pulse 97 96 97 Oximetry 07/10/20 07/10/20 07/10/20 09:30 09:41 09:51 Temperature Pulse Rate 91 H 96 H 104 H Pulse Rate [ From Monitor] Respiratory 14 18 17 Rate Blood Pressure 145/98 145/98 132/98 O2 Sat by Pulse 89 88 90 Oximetry 07/10/20 07/10/20 07/10/20 10:00 10:11 10:21 Temperature Pulse Rate 100 H 101 H 60 Pulse Rate [ From Monitor] Respiratory 18 13 20 Rate Blood Pressure 143/89 143/89 149/91 O2 Sat by Pulse 91 89 93 Oximetry 07/10/20 07/10/20 07/10/20 10:30 10:41 10:51 Temperature Pulse Rate 98 H 105 H 56 L Pulse Rate [ From Monitor] Respiratory 14 14 20 Rate Blood Pressure 154/98 149/91 135/66 O2 Sat by Pulse 90 91 95 Oximetry 07/10/20 07/10/20 07/10/20 11:01 11:11 11:21 Temperature Pulse Rate 54 L 52 L 51 L Pulse Rate [ From Monitor] Respiratory 20 20 20 Rate Blood Pressure 104/54 104/54 99/53 O2 Sat by Pulse 93 94 94 Oximetry 07/10/20 07/10/20 07/10/20 11:30 11:41 11:50 Temperature Pulse Rate 51 L 87 94 H Pulse Rate [ From Monitor] Respiratory 20 10 L 14 Rate Blood Pressure 102/55 102/55 142/75 O2 Sat by Pulse 94 89 87 Oximetry 07/10/20 07/10/20 07/10/20 12:00 12:04 12:11 Temperature Pulse Rate 60 104 H Pulse Rate [ 59 L From Monitor] Respiratory 18 20 10 L Rate Blood Pressure O2 Sat by Pulse 95 91 88 Oximetry 07/10/20 12:14 Temperature Pulse Rate 83 Pulse Rate [ From Monitor] Respiratory Rate Blood Pressure 141/115 O2 Sat by Pulse 92 Oximetry Constitutional: appears uncomfortable, other (elderly obese female with mildly increased respiratory effort at rest on MVS) Eyes: non-icteric ENT: oropharynx moist, other (ETT 23 cm THUY) Neck: supple Effort: mildly labored Ascultation: Bilateral: diminished breath sounds, rhonchi (scant) Percussion: Bilateral: not dull Cardiovascular: regular rate and rhythm, other (sinus tach) Gastrointestinal: normoactive bowel sounds, soft, non-tender, non-distended (protuberant) Integumentary: rash Extremities: no cyanosis, pink and warm, no ischemia or petechiae, edema Neurologic: non-focal exam (grossly), pupils equal and round, other (sedated, follows simple prompts intermittently) Psychiatric: other (Unable to assess re: sedation) CBC and BMP: 07/08/20 20:41 07/08/20 07:31 ABG, PT/INR, D-dimer: ABG ABG pH 7.399 (7.320-7.450) 07/10/20 04:15 POC ABG pCO2 46.6 mmHg (32.0-48.0) 07/10/20 04:15 ABG pCO2 46.7 mm Hg 07/08/20 03:20 POC ABG pO2 60.7 mmHg (83-108) L 07/10/20 04:15 ABG pO2 85.5 mm Hg (80.0-90.0) 07/08/20 03:20 POC ABG HCO3 28.2 07/10/20 04:15 ABG O2 Saturation 96.8 % (95.0-99.0) 07/08/20 03:20 PT/INR, D-dimer PT 14.5 Sec. (12.2-14.9) 07/07/20 05:15 INR 1.12 (0.87-1.13) 07/07/20 05:15 D-Dimer 1298.20 ng/mlDDU (0-234) H 07/05/20 23:06 Abnormal lab findings: Abnormal Labs 07/05/20 07/05/20 07/05/20 22:55 23:06 23:06 Hct MCV RDW Lymph % (Auto) [place] % (Auto) Lymph # (Auto) [place] # (Auto) Seg Neutrophils % Seg Neuts % (Manual) Nucleated RBC % Seg Neutrophils # PT 15.2 H INR 1.18 H D-Dimer 1298.20 H ABG pH POC ABG pCO2 POC ABG pO2 ABG pO2 227.3 H ABG HCO3 31.3 H ABG O2 Saturation 99.3 H ABG Base Excess 5.8 H ABG Hemoglobin ABG Sodium ABG Glucose Oxyhemoglobin Potassium Chloride BUN 31 H Creatinine Glucose POC Glucose Calcium 7.7 L Lactate Dehydrogenase 217 H Troponin T 0.032 H C-Reactive Protein 1.60 H NT-Pro-B Natriuret Pep Total Protein 5.2 L Albumin 2.6 L LDL Cholesterol Direct 43 L TSH Arterial Blood Glucose Arterial Blood Ionized Calcium Salicylates Acetaminophen 07/05/20 07/05/20 07/05/20 23:06 23:06 23:06 Hct MCV RDW Lymph % (Auto) [place] % (Auto) Lymph # (Auto) [place] # (Auto) Seg Neutrophils % Seg Neuts % (Manual) Nucleated RBC % Seg Neutrophils # PT INR D-Dimer ABG pH POC ABG pCO2 POC ABG pO2 ABG pO2 ABG HCO3 ABG O2 Saturation ABG Base Excess ABG Hemoglobin ABG Sodium ABG Glucose Oxyhemoglobin Potassium Chloride BUN Creatinine Glucose POC Glucose Calcium Lactate Dehydrogenase Troponin T C-Reactive Protein NT-Pro-B Natriuret Pep Total Protein Albumin LDL Cholesterol Direct TSH 15.130 H Arterial Blood Glucose Arterial Blood Ionized Calcium Salicylates < 0.3 L Acetaminophen < 5.0 L 07/05/20 07/05/20 07/06/20 23:06 23:42 06:58 Hct MCV 98 H RDW 19.8 H Lymph % (Auto) [place] % (Auto) 15.9 H Lymph # (Auto) 0.9 L [place] # (Auto) 1.0 H Seg Neutrophils % Seg Neuts % (Manual) Nucleated RBC % Seg Neutrophils # PT INR D-Dimer ABG pH 7.533 H POC ABG pCO2 20.7 L POC ABG pO2 ABG pO2 ABG HCO3 ABG O2 Saturation ABG Base Excess ABG Hemoglobin 7.6 L ABG Sodium 132.3 L ABG Glucose 55 L Oxyhemoglobin Potassium Chloride BUN Creatinine Glucose POC Glucose Calcium Lactate Dehydrogenase 217 H Troponin T C-Reactive Protein 1.60 H NT-Pro-B Natriuret Pep Total Protein Albumin LDL Cholesterol Direct TSH Arterial Blood Glucose 55 L Arterial Blood Ionized Calcium 4.3 L Salicylates Acetaminophen 07/06/20 07/06/20 07/06/20 11:09 11:09 17:46 Hct 43.0 H MCV 100 H RDW 20.8 H Lymph % (Auto) 7.2 L [place] % (Auto) 11.4 H Lymph # (Auto) 0.7 L [place] # (Auto) 1.1 H Seg Neutrophils % 81.3 H Seg Neuts % (Manual) Nucleated RBC % Seg Neutrophils # 7.9 H PT INR D-Dimer ABG pH POC ABG pCO2 POC ABG pO2 ABG pO2 ABG HCO3 ABG O2 Saturation ABG Base Excess ABG Hemoglobin ABG Sodium ABG Glucose Oxyhemoglobin Potassium Chloride BUN Creatinine Glucose POC Glucose 43 L Calcium Lactate Dehydrogenase Troponin T C-Reactive Protein NT-Pro-B Natriuret Pep 30135 H Total Protein Albumin LDL Cholesterol Direct TSH Arterial Blood Glucose Arterial Blood Ionized Calcium Salicylates Acetaminophen 07/06/20 07/06/20 07/07/20 19:31 Unknown 04:55 Hct MCV RDW Lymph % (Auto) [place] % (Auto) Lymph # (Auto) [place] # (Auto) Seg Neutrophils % Seg Neuts % (Manual) Nucleated RBC % Seg Neutrophils # PT INR D-Dimer ABG pH POC ABG pCO2 POC ABG pO2 ABG pO2 70.8 L ABG HCO3 28.9 H ABG O2 Saturation 94.5 L ABG Base Excess 3.3 H ABG Hemoglobin 11.6 L ABG Sodium ABG Glucose Oxyhemoglobin 92.7 L Potassium 3.5 L Chloride 110.4 H BUN 19 H Creatinine 0.4 L Glucose 101 H POC Glucose < 40 L Calcium 7.2 L Lactate Dehydrogenase Troponin T C-Reactive Protein NT-Pro-B Natriuret Pep Total Protein 4.4 L Albumin 2.2 L LDL Cholesterol Direct TSH Arterial Blood Glucose Arterial Blood Ionized Calcium Salicylates Acetaminophen 07/07/20 07/07/20 07/08/20 05:15 05:15 03:20 Hct MCV 98 H RDW 19.9 H Lymph % (Auto) [place] % (Auto) Lymph # (Auto) [place] # (Auto) Seg Neutrophils % Seg Neuts % (Manual) 76.0 H Nucleated RBC % 1.0 H Seg Neutrophils # PT INR D-Dimer ABG pH POC ABG pCO2 POC ABG pO2 ABG pO2 ABG HCO3 29.1 H ABG O2 Saturation ABG Base Excess 3.8 H ABG Hemoglobin ABG Sodium ABG Glucose Oxyhemoglobin Potassium Chloride BUN Creatinine 0.5 L Glucose POC Glucose Calcium 7.6 L Lactate Dehydrogenase Troponin T C-Reactive Protein NT-Pro-B Natriuret Pep Total Protein Albumin LDL Cholesterol Direct TSH Arterial Blood Glucose Arterial Blood Ionized Calcium Salicylates Acetaminophen 07/08/20 07/09/20 07/09/20 07:31 00:02 04:05 Hct MCV RDW Lymph % (Auto) [place] % (Auto) Lymph # (Auto) [place] # (Auto) Seg Neutrophils % Seg Neuts % (Manual) Nucleated RBC % Seg Neutrophils # PT INR D-Dimer ABG pH POC ABG pCO2 POC ABG pO2 63.4 L ABG pO2 ABG HCO3 ABG O2 Saturation ABG Base Excess ABG Hemoglobin 11.8 L ABG Sodium 134.1 L ABG Glucose 137 H Oxyhemoglobin Potassium Chloride 108.6 H BUN Creatinine 0.3 L Glucose 177 H POC Glucose 118 H Calcium 7.7 L Lactate Dehydrogenase Troponin T C-Reactive Protein NT-Pro-B Natriuret Pep Total Protein Albumin LDL Cholesterol Direct TSH Arterial Blood Glucose 137 H Arterial Blood Ionized Calcium Salicylates Acetaminophen 07/09/20 07/09/20 07/09/20 05:10 12:38 17:31 Hct MCV RDW Lymph % (Auto) [place] % (Auto) Lymph # (Auto) [place] # (Auto) Seg Neutrophils % Seg Neuts % (Manual) Nucleated RBC % Seg Neutrophils # PT INR D-Dimer ABG pH POC ABG pCO2 POC ABG pO2 ABG pO2 ABG HCO3 ABG O2 Saturation ABG Base Excess ABG Hemoglobin ABG Sodium ABG Glucose Oxyhemoglobin Potassium Chloride BUN Creatinine Glucose POC Glucose 132 H 106 H 120 H Calcium Lactate Dehydrogenase Troponin T C-Reactive Protein NT-Pro-B Natriuret Pep Total Protein Albumin LDL Cholesterol Direct TSH Arterial Blood Glucose Arterial Blood Ionized Calcium Salicylates Acetaminophen 07/10/20 07/10/20 07/10/20 00:27 04:15 05:25 Hct MCV RDW Lymph % (Auto) [place] % (Auto) Lymph # (Auto) [place] # (Auto) Seg Neutrophils % Seg Neuts % (Manual) Nucleated RBC % Seg Neutrophils # PT INR D-Dimer ABG pH POC ABG pCO2 POC ABG pO2 60.7 L ABG pO2 ABG HCO3 ABG O2 Saturation ABG Base Excess ABG Hemoglobin ABG Sodium ABG Glucose 149 H Oxyhemoglobin Potassium Chloride BUN Creatinine Glucose POC Glucose 129 H 127 H Calcium Lactate Dehydrogenase Troponin T C-Reactive Protein NT-Pro-B Natriuret Pep Total Protein Albumin LDL Cholesterol Direct TSH Arterial Blood Glucose 149 H Arterial Blood Ionized Calcium Salicylates Acetaminophen 07/10/20 12:08 Hct MCV RDW Lymph % (Auto) [place] % (Auto) Lymph # (Auto) [place] # (Auto) Seg Neutrophils % Seg Neuts % (Manual) Nucleated RBC % Seg Neutrophils # PT INR D-Dimer ABG pH POC ABG pCO2 POC ABG pO2 ABG pO2 ABG HCO3 ABG O2 Saturation ABG Base Excess ABG Hemoglobin ABG Sodium ABG Glucose Oxyhemoglobin Potassium Chloride BUN Creatinine Glucose POC Glucose 129 H Calcium Lactate Dehydrogenase Troponin T C-Reactive Protein NT-Pro-B Natriuret Pep Total Protein Albumin LDL Cholesterol Direct TSH Arterial Blood Glucose Arterial Blood Ionized Calcium Salicylates Acetaminophen Allied health notes reviewed: nursing
[2020-07-10] MEDS ORDERED: MIDAZOLAM 2 MG/2 ML INJ IV PRN (12:56)
[2020-07-10] MEDS: QUEtiapine 100 MG TAB PO SCH ×2 (13:31→21:49)
[2020-07-10] MEDS: MIDAZOLAM 100 MG in SODIUM CHLORIDE 0.9% 80 ML IV SCH (13:32)
[2020-07-10] MEDS: NORepinephrine/NS 4 MG-250 ML 4 MG/250 ML BAG IV SCH (17:07)
[2020-07-10] MEDS ORDERED: DEXTROSE 5% IN WATER 1,000 ML IV SCH (21:00)
[2020-07-10] MEDS ORDERED: ENOXAPARIN 40 MG/0.4 ML INJ SUB-Q SCH (22:00)
[2020-07-11] MEDS: fentaNYL DRIP Premix 2,000 MCG/100 ML BAG IV SCH ×2 (02:40→20:08)
[2020-07-11] MEDS: methylPREDNISolone Sod Succinate 125 MG/2 ML INJ IV SCH ×3 (05:52→22:55)
[2020-07-11] MEDS: QUEtiapine 100 MG TAB PO SCH ×2 (09:05→22:55)
[2020-07-11] MEDS: FAMOTIDINE 20 MG TAB PO SCH ×2 (09:05→22:55)
[2020-07-11] MEDS: CEFEPIME/NS 2 GM/100 ML 2 GM/100 ML BAG IV SCH ×2 (09:06→22:55)
--- NOTE | 2020-07-11 09:39 | Progress Note ---
Assessment and Plan Assessment and plan: (1) Acute encephalopathy Current Visit: Yes Status: Acute Plan to address problem: Etiology is unclear possibly secondary to underlying infection versus cerebral hemorrhage. Will monitor mental status. Neurosurgeon has been consulted for the cerebral hemorrhage. Hypotension -Requiring pressors -She was evaluated by ID yesterday and patient was placed on IV cefepime and vancomycin -Blood cultures are negative -COVID-19 test is negative (2) Acute respiratory failure Current Visit: Yes Status: Acute Qualifiers: Respiratory failure complication: hypoxia Qualified Code(s): J96.01 - Acute respiratory failure with hypoxia Plan to address problem: Patient currently intubated and sedated. Pulmonary/critical care is following (3) Intracranial hemorrhage Current Visit: Yes Status: Acute Plan to address problem: Repeat CAT scan noted. Neurosurgeon following. Patient has right ICA stenosis and consulted vascular surgery and recommend no intervention needed. (4) Suspected 2019 novel coronavirus infection Current Visit: Yes Status: Acute Plan to address problem: Covid test is negative (5) DVT prophylaxis Current Visit: Yes Status: Acute Plan to address problem: Patient placed on sequential compression device. (6) Full code status Current Visit: Yes Status: Acute 07/07/2020; patient was evaluated by ID and IV antibiotics discontinued. Pulmonary critical care is following. Neurosurgeon consulted in the emergency department and will follow the patient. Patient is still intubated and sedated and on mechanical ventilation, patient is still in the ED and will be transferred to ICU. Patient had episode of hypoglycemia yesterday and was treated according to hypoglycemia protocol. Patient was evaluated by cardiology for history paroxysmal A. fib and patient is not a candidate for anticoagulation because of anemia. 07/07/2020; patient has hypotension yesterday and requiring pressors and that evaluated and started her on IV cefepime and vancomycin. Patient has been followed with Dr Valles and Dr. maxr before. 07/09/2020; patient has hypertension and on pressors, on IV cefepime and vancomycin. Patient was seen by neurosurgery and recommend MRI once patient is stable. No neurosurgical intervention is needed. 07/10/2020: patient is pressors, on IV cefepime day 3/5. Patient was seen by neurosurgery and recommend MRI once patient is stable. No neurosurgical intervention is needed. Pulmonary is following for vent management. 07/11/2020; patient is off pressors, on IV cefepime day 3/5. Patient was seen by neurosurgery and recommend MRI once patient is stable. No neurosurgical intervention is needed. Pulmonary is following for vent management. The high probability of a clinically significant, sudden or life threatening deterioration of the [respiratory, neurology] system(s) required my full and direct attention, intervention and personal management. The aggregate critical care time was [35] minutes. This time is in addition to time spent performing reported procedures but includes the following: [x] Data Review and interpretation [x] Patient assessment and monitoring of vital signs [x] Documentation [x] Medication orders and management History Interval history: Patient was seen and evaluated this morning Patient is intubated and sedated Hospitalist Physical - Physical exam Narrative exam: Intubated and sedated The patient appeared well nourished and normally developed. Vital signs as documented. Head exam is unremarkable. No scleral icterus . Neck is without jugular venous distension, thyromegaly, or carotid bruits. Lungs are clear to auscultation. Cardiac exam reveals regular rate and Rhythm. Abdominal exam reveals normal bowel sounds, nontender, no organomegaly. Extremities are nonedematous and both femoral and pedal pulses are normal. 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 - Constitutional Vitals: Temp Pulse Resp BP Pulse Ox 97.5 F L 120 H 20 131/73 99 07/11/20 03:55 07/11/20 09:00 07/11/20 09:00 07/11/20 09:00 07/11/20 09:00 General appearance: Present: other (intubated on the vent) HEART Score - HEART Score Troponin: Troponin T 0.032 ng/mL (0.00-0.029) H 07/05/20 23:06 Results - Labs CBC & Chem 7: 07/08/20 20:41 07/08/20 07:31 Labs: Laboratory Last Values WBC 9.8 K/mm3 (4.5-11.0) 07/07/20 05:15 RBC 3.90 M/mm3 (3.65-5.03) 07/07/20 05:15 Hgb 12.3 gm/dl (10.1-14.3) 07/08/20 20:41 Hct 39.2 % (30.3-42.9) 07/08/20 20:41 MCV 98 fl (79-97) H 07/07/20 05:15 MCH 30 pg (28-32) 07/07/20 05:15 MCHC 31 % (30-34) 07/07/20 05:15 RDW 19.9 % (13.2-15.2) H 07/07/20 05:15 Plt Count 201 K/mm3 (140-440) 07/07/20 05:15 Lymph % (Auto) 7.2 % (13.4-35.0) L 07/06/20 11:09 [place] % (Auto) [employer] Cash[employer] Supervisor 07/07/20 05:15 Eos % (Auto) 0.0 % (0.0-4.3) 07/06/20 11:09 Baso % (Auto) 0.1 % (0.0-1.8) 07/06/20 11:09 Lymph # (Auto) 0.7 K/mm3 (1.2-5.4) L 07/06/20 11:09 [place] # (Auto) 1.1 K/mm3 (0.0-0.8) H 07/06/20 11:09 Eos # (Auto) 0.0 K/mm3 (0.0-0.4) 07/06/20 11:09 Baso # (Auto) 0.0 K/mm3 (0.0-0.1) 07/06/20 11:09 Add Manual Diff Complete 07/07/20 05:15 Total Counted 100 07/07/20 05:15 Seg Neutrophils % 81.3 % (40.0-70.0) H 07/06/20 11:09 Seg Neuts % (Manual) 76.0 % (40.0-70.0) H 07/07/20 05:15 Band Neutrophils % 0 % 07/07/20 05:15 Lymphocytes % (Manual) 24.0 % (13.4-35.0) 07/07/20 05:15 Reactive Lymphs % (Man) 0 % 07/07/20 05:15 Monocytes % (Manual) 0 % (0.0-7.3) 07/07/20 05:15 Eosinophils % (Manual) 0 % (0.0-4.3) 07/07/20 05:15 Basophils % (Manual) 0 % (0.0-1.8) 07/07/20 05:15 Metamyelocytes % 0 % 07/07/20 05:15 Myelocytes % 0 % 07/07/20 05:15 Promyelocytes % 0 % 07/07/20 05:15 Blast Cells % 0 % 07/07/20 05:15 Nucleated RBC % 1.0 % (0.0-0.9) H 07/07/20 05:15 Seg Neutrophils # 7.9 K/mm3 (1.8-7.7) H 07/06/20 11:09 Seg Neutrophils # Man 7.4 K/mm3 (1.8-7.7) 07/07/20 05:15 Band Neutrophils # 0.0 K/mm3 07/07/20 05:15 Lymphocytes # (Manual) 2.4 K/mm3 (1.2-5.4) 07/07/20 05:15 Abs React Lymphs (Man) 0.0 K/mm3 07/07/20 05:15 Monocytes # (Manual) 0.0 K/mm3 (0.0-0.8) 07/07/20 05:15 Eosinophils # (Manual) 0.0 K/mm3 (0.0-0.4) 07/07/20 05:15 Basophils # (Manual) 0.0 K/mm3 (0.0-0.1) 07/07/20 05:15 Metamyelocytes # 0.0 K/mm3 07/07/20 05:15 Myelocytes # 0.0 K/mm3 07/07/20 05:15 Promyelocytes # 0.0 K/mm3 07/07/20 05:15 Blast Cells # 0.0 K/mm3 07/07/20 05:15 WBC Morphology Not Reportable 07/07/20 05:15 Hypersegmented Neuts Not Reportable 07/07/20 05:15 Hyposegmented Neuts Not Reportable 07/07/20 05:15 Hypogranular Neuts Not Reportable 07/07/20 05:15 Smudge Cells Not Reportable 07/07/20 05:15 Toxic Granulation Not Reportable 07/07/20 05:15 Toxic Vacuolation Not Reportable 07/07/20 05:15 Dohle Bodies Not Reportable 07/07/20 05:15 Pelger-Huet Anomaly Not Reportable 07/07/20 05:15 Marissa Rods Not Reportable 07/07/20 05:15 Platelet Estimate Consistent w auto 07/07/20 05:15 Clumped Platelets Not Reportable 07/07/20 05:15 Plt Clumps, EDTA Not Reportable 07/07/20 05:15 Large Platelets Not Reportable 07/07/20 05:15 Giant Platelets Not Reportable 07/07/20 05:15 Platelet Satelliting Not Reportable 07/07/20 05:15 Plt Morphology Comment Not Reportable 07/07/20 05:15 RBC Morphology Not Reportable 07/07/20 05:15 Dimorphic RBCs Not Reportable 07/07/20 05:15 Polychromasia Not Reportable 07/07/20 05:15 Hypochromasia Not Reportable 07/07/20 05:15 Poikilocytosis Not Reportable 07/07/20 05:15 Anisocytosis 1+ 07/07/20 05:15 Microcytosis Not Reportable 07/07/20 05:15 Macrocytosis Few 07/07/20 05:15 Spherocytes Not Reportable 07/07/20 05:15 Pappenheimer Bodies Not Reportable 07/07/20 05:15 Sickle Cells Not Reportable 07/07/20 05:15 Target Cells Not Reportable 07/07/20 05:15 Tear Drop Cells Not Reportable 07/07/20 05:15 Ovalocytes Rare 07/07/20 05:15 Helmet Cells Not Reportable 07/07/20 05:15 [place] Bodies Not Reportable 07/07/20 05:15 [place] Rings Not Reportable 07/07/20 05:15 Demi Cells Not Reportable 07/07/20 05:15 Bite Cells Not Reportable 07/07/20 05:15 Crenated Cell Not Reportable 07/07/20 05:15 Elliptocytes Not Reportable 07/07/20 05:15 Acanthocytes (Spur) Not Reportable 07/07/20 05:15 Rouleaux Not Reportable 07/07/20 05:15 Hemoglobin C Crystals Not Reportable 07/07/20 05:15 Schistocytes Rare 07/07/20 05:15 Malaria parasites Not Reportable 07/07/20 05:15 Ab Bodies Not Reportable 07/07/20 05:15 Hem Pathologist Commnt No 07/07/20 05:15 PT 14.5 Sec. (12.2-14.9) 07/07/20 05:15 INR 1.12 (0.87-1.13) 07/07/20 05:15 APTT 30.8 Sec. (24.2-36.6) 07/05/20 23:06 D-Dimer 1298.20 ng/mlDDU (0-234) H 07/05/20 23:06 ABG pH 7.391 (7.320-7.450) 07/11/20 04:56 POC ABG pCO2 48.8 mmHg (32.0-48.0) H 07/11/20 04:56 ABG pCO2 46.7 mm Hg 07/08/20 03:20 POC ABG pO2 95.6 mmHg (83-108) 07/11/20 04:56 ABG pO2 85.5 mm Hg (80.0-90.0) 07/08/20 03:20 POC ABG HCO3 28.9 07/11/20 04:56 ABG HCO3 29.1 mmol/L (20.0-26.0) H 07/08/20 03:20 ABG O2 Saturation 96.8 % (95.0-99.0) 07/08/20 03:20 ABG O2 Content 16.6 (0.0-44) 07/08/20 03:20 POC ABG Base Excess 3.2 07/11/20 04:56 ABG Base Excess 3.8 mmol/L (-2.0-3.0) H 07/08/20 03:20 ABG Hemoglobin 12.6 (12.0-17.5) 07/11/20 04:56 ABG Carboxyhemoglobin 1.3 % (0.0-5.0) 07/08/20 03:20 ABG Methemoglobin 0.5 % (0.0-1.5) 07/08/20 03:20 ABG Sodium 138.1 mmol/L (136.0-145.0) 07/11/20 04:56 ABG Potassium 3.6 mmol/L (3.40-4.50) 07/11/20 04:56 ABG Chloride 104.0 mmol/L (98-107) 07/11/20 04:56 ABG Glucose 153 mg/dL (65-95) H 07/11/20 04:56 Oxyhemoglobin 95.1 % (95.0-99.0) 07/08/20 03:20 FiO2 70 07/11/20 04:56 Sodium 144 mmol/L (137-145) 07/08/20 07:31 Potassium 3.8 mmol/L (3.6-5.0) 07/08/20 07:31 Chloride 108.6 mmol/L (98-107) H 07/08/20 07:31 Carbon Dioxide 29 mmol/L (22-30) 07/08/20 07:31 Anion Gap 10 mmol/L 07/08/20 07:31 BUN 7 mg/dL (7-17) 07/08/20 07:31 Creatinine 0.3 mg/dL (0.6-1.2) L 07/08/20 07:31 Estimated GFR > 60 ml/min 07/08/20 07:31 BUN/Creatinine Ratio 23 % 07/08/20 07:31 Glucose 177 mg/dL (65-100) H 07/08/20 07:31 POC Glucose 127 mg/dL (70-105) H 07/11/20 05:29 Lactic Acid 0.80 mmol/L (0.7-2.0) 07/05/20 23:06 Calcium 7.7 mg/dL (8.4-10.2) L 07/08/20 07:31 Magnesium 2.00 mg/dL (1.7-2.3) 07/05/20 23:06 Ferritin 60.8 ng/mL (10.0-200.0) 07/05/20 23:06 Total Bilirubin 0.30 mg/dL (0.1-1.2) 07/06/20 Unknown AST 13 units/L (5-40) 07/06/20 Unknown ALT 10 units/L (7-56) 07/06/20 Unknown Alkaline Phosphatase 71 units/L (35-129) 07/06/20 Unknown Ammonia 40.0 umol/L (25-60) 07/05/20 23:06 Lactate Dehydrogenase 217 units/L (91-180) H 07/05/20 23:06 Lactate Dehydrogenase 217 units/L (91-180) H 07/05/20 23:06 Total Creatine Kinase 55 units/L (30-135) 07/05/20 23:06 Troponin T 0.032 ng/mL (0.00-0.029) H 07/05/20 23:06 C-Reactive Protein 1.60 mg/dL (0.00-1.30) H 07/05/20 23:06 C-Reactive Protein 1.60 mg/dL (0.00-1.30) H 07/05/20 23:06 NT-Pro-B Natriuret Pep 58634 pg/mL (0-900) H 07/06/20 11:09 Total Protein 4.4 g/dL (6.3-8.2) L 07/06/20 Unknown Albumin 2.2 g/dL (3.9-5) L 07/06/20 Unknown Albumin/Globulin Ratio 1.0 % 07/06/20 Unknown Triglycerides 126 mg/dL (2-149) 07/05/20 23:06 Cholesterol 109 mg/dL (50-199) 07/05/20 23:06 LDL Cholesterol Direct 43 mg/dL (50-130) L 07/05/20 23:06 HDL Cholesterol 42 mg/dL (40-59) 07/05/20 23:06 Cholesterol/HDL Ratio 2.59 % 07/05/20 23:06 Procalcitonin < 0.05 ng/mL (<0.15) 07/05/20 23:06 TSH 15.130 mlU/mL (0.270-4.200) H 07/05/20 23:06 Free T4 0.79 ng/dL (0.76-1.46) 07/06/20 11:09 Arterial Blood Glucose 153 mg/dL (65-95) H 07/11/20 04:56 Arterial Blood Ionized Calcium 5.0 mg/dL (4.6-5.3) 07/11/20 04:56 Urine Color Mildred (Yellow) 07/05/20 Unknown Urine Turbidity Clear (Clear) 07/05/20 Unknown Urine pH 5.0 (5.0-7.0) 07/05/20 Unknown Ur Specific [place] 1.025 (1.003-1.030) 07/05/20 Unknown Urine Protein 30 mg/dl mg/dL (Negative) 07/05/20 Unknown Urine Glucose (UA) Neg mg/dL (Negative) 07/05/20 Unknown Urine Ketones Neg mg/dL (Negative) 07/05/20 Unknown Urine Blood Neg (Negative) 07/05/20 Unknown Urine Nitrite Neg (Negative) 07/05/20 Unknown Urine Bilirubin Neg (Negative) 07/05/20 Unknown Urine Urobilinogen 4.0 mg/dL (<2.0) 07/05/20 Unknown Ur Leukocyte Esterase Neg (Negative) 07/05/20 Unknown Urine WBC (Auto) 2.0 /HPF (0.0-6.0) 07/05/20 Unknown Urine RBC (Auto) 1.0 /HPF (0.0-6.0) 07/05/20 Unknown U Epithel Cells (Auto) 1.0 /HPF (0-13.0) 07/05/20 Unknown Hyaline Casts 16 /LPF 07/05/20 Unknown Urine Mucus Few /HPF 07/05/20 Unknown Salicylates < 0.3 mg/dL (2.8-20.0) L 07/05/20 23:06 Acetaminophen < 5.0 ug/mL (10.0-30.0) L 07/05/20 23:06 Plasma/Serum Alcohol < 0.01 % (0-0.07) 07/05/20 23:06 Coronavirus (PCR) Negative (Negative) 07/06/20 Unknown Blood Type O POSITIVE 07/05/20 23:10 Antibody Screen Negative 07/05/20 23:10 Microbiology: Microbiology 07/05/20 23:06 Peripheral/Venous Blood Culture - Final NO GROWTH AFTER 5 DAYS 07/05/20 23:42 Peripheral/Venous Blood Culture - Final NO GROWTH AFTER 5 DAYS 07/08/20 Unknown Nares - Left MRSA Culture - Preliminary Roberts/IV: Voiding Method Indwelling Catheter IV Catheter Type [Right Upper PICC Line arm] IV Catheter Type [Right INT / Saline Lock External Jugular] IV Catheter Type [Left Triple Lumen Cath Internal Jugular] Active Medications - Current Medications Current Medications: Generic Name Dose Route Start Last Admin Trade Name Freq PRN Reason Stop Dose Admin Acetaminophen 650 mg 07/06/20 02:44 Tylenol DC Q4H PRN Pain, Mild (1-3) Lipase/Protease/Amylase 1 each 07/08/20 14:30 Pancrejay [place] 10,500 Unit FEEDTUBE PRN PRN For Clogged Feeding Tube Bisacodyl 10 mg 07/06/20 02:44 Dulcolax DC QDAY PRN Constipation unrelieved by MOM Dextrose 0 ml 07/06/20 19:30 07/06/20 19:25 D50w (25gm) Syringe IV 30 ml ONCE PRN Administration Hypoglycemia Famotidine 20 mg 07/09/20 10:00 07/11/20 09:05 Pepcid PO 20 mg BID LUZ MARIA Administration Fentanyl 50 mcg 07/05/20 22:08 07/06/20 01:20 Sublimaze IV 50 mcg Q10MIN PRN Administration ANALGESIA Hydralazine HCl 5 mg 07/06/20 02:30 Apresoline IV Q30MIN PRN Hypertension Hydrophilic Ointment 1 applic 07/05/20 22:08 Vaseline Lip Therapy TP Q2HR PRN Dry Lips Fentanyl Citrate 2,000 mcg in 100 mls @ 3.561 mls/hr 07/05/20 23:00 07/11/20 05:52 Fentanyl Drip Premix IV 1 mcg/kg/hr TITR LUZ MARIA 3.561 mls/hr Titration Protocol 1 MCG/KG/HR Norepinephrine 4 mg in 250 mls @ 7.5 mls/hr 07/06/20 22:00 07/11/20 08:50 Levophed Drip 4 Mg/Ns 250 Ml IV 0 mcg/min TITR LUZ MARIA 0 mls/hr Titration Protocol 2 MCG/MIN Dopamine HCl/Dextrose 800 mg in 250 mls @ 2.671 mls/hr 07/07/20 04:00 Intropin Drip 800 Mg/D5w 250 Ml IV TITR LUZ MARIA Protocol 2 MCG/KG/MIN Cefepime HCl 2 gm in 100 mls @ 200 mls/hr 07/07/20 13:00 07/11/20 09:06 Cefepime/Ns 2 Gm/100 Ml IV 07/11/20 22:29 200 mls/hr Q12HR LUZ MARIA Administration Protocol Midazolam HCl 100 mg/ Sodium 100 mls @ 2 mls/hr 07/10/20 13:30 07/11/20 01:39 Chloride IV 0 mg/hr TITR LUZ MARIA 0 mls/hr Titration Protocol 2 MG/HR Dextrose 1,000 mls @ 100 mls/hr 07/10/20 21:00 D5w IV DIRECT LUZ MARIA Methylprednisolone Sodium Succinate 60 mg 07/08/20 22:00 07/11/20 05:52 Solu-Medrol IV 60 mg Q8HR LUZ MARIA Administration Midazolam HCl 2 mg 07/10/20 12:56 Versed IV Q10MIN PRN Sedation Morphine Sulfate 2 mg 07/06/20 02:44 Morphine IV Q4H PRN Pain, Moderate (4-6) Multi-Ingred Cream/Lotion/Oil/Oint 1 applic 07/05/20 22:08 Artificial Tears Ophth Oint OU Q4HR PRN Dry Eye(s) Ondansetron HCl 4 mg 07/06/20 02:44 Zofran IV Q8H PRN N/V unrelieved by Live Quetiapine Fumarate 300 mg 07/10/20 14:00 07/11/20 09:05 Seroquel PO 300 mg BID LUZ MARIA Administration Simple Syrup 15 ml 07/08/20 14:30 Simple Syrup FEEDTUBE PRN PRN Hypoglycemia Simple Syrup 30 ml 07/08/20 14:30 Simple Syrup FEEDTUBE PRN PRN Hypoglycemia Sodium Bicarbonate 325 mg 07/08/20 14:30 Sodium Bicarbonate FEEDTUBE PRN PRN For Clogged Feeding Tube Sodium Chloride 10 ml 07/06/20 10:00 07/11/20 09:05 Sodium Chloride Flush Syringe 10 Ml IV 10 ml BID LUZ MARIA Administration Sodium Chloride 10 ml 07/06/20 02:44 Sodium Chloride Flush Syringe 10 Ml IV PRN PRN LINE FLUSH Nutrition/Malnutrition Assess - Dietary Evaluation Nutrition/Malnutrition Findings: Nutrition Notes Start: 07/06/20 09:30 Freq: Status: Active Protocol: Document 07/08/20 13:46 EN (Rec: 07/08/20 13:58 EN [email or web address]) Co-Sign 07/08/20 13:46 LP Nutrition Notes Initial or Follow up Reassessment Current Diagnosis COPD,Heart Failure,Respiratory Failure Other Pertinent Diagnosis Acute enephalopathy, COVID-19 negative, Intracranial hemorrhage Current Diet NPO Labs/Tests Reviewed Pertinent Medications Norepinephrine Diprivan Fentanyl Solu-cortef D5w at 100 ml/hr Height 5 ft Weight 71.214 kg [place] Body Weight (kg) 45.45 BMI 30.7 Weight Status Obese Subjective/Other Information F/u for TF start and tolerance . Pt on day 3 of NPO. ok'd trickle feed at 10 ml/hr Percent of energy/protein needs met: 0%/0% Burn Absent Trauma Absent Food Allergy No Current % PO Negligible Minimum of two criteria No physical signs of malnutrition #1 Nutrition Diagnosis Inadequate oral intake Diagnosis Progress(for reassessment Continues documentation) Is patient on ventilator? Yes Is Patient Ambulatory and/or Out of Bed No REE-([facility]-confined to bed) 1443.372 Calculation Used for Recommendations [facility] Additional Notes Protein: >2 g/kg IBW: >91g Fluid: 1 ml/kcal Nutrition Intervention Change Diet Order: Begin trickle feed Nutrition Support: Promote 1.0 at 10 ml/hr Flush 50ml q4h Kcal 240 Protein (gm) 15 Fluid (mL) 201 Goal #1 Begin Trickle feed Goal #2 Meet at least 75% of energy and protein needs with TF ( when advanced to goal rate) Anticipated Discharge Needs: unable to determine at this time Follow-Up By: 07/12/20 Additional Comments F/u for trickle feed start, tolerance and TF advancement
--- NOTE | 2020-07-11 09:45 | Progress Note ---
Assessment and Plan - Patient Problems (1) Respiratory failure Current Visit: Yes Status: Acute Plan to address problem: Continue supportive management, conservative cardiac management as previously outlined. Subjective Date of service: 07/11/20 Principal diagnosis: Ac and ch hypoxic & hypercapnic resp failure; AE-COPD; Tobacco use disorder Interval history: Patient is unresponsive, on the vent. On dag sprayer there is a sinus tachycardia at 134. Objective Vital Signs Temp Pulse Pulse Resp BP Pulse Ox 07/11/20 09:00 120 H 20 131/73 99 07/11/20 08:51 143 H 16 157/92 97 07/11/20 08:41 140 H 11 L 149/86 98 07/11/20 08:30 135 H 16 149/86 99 07/11/20 08:24 145 H 158/56 100 07/11/20 08:21 136 H 15 148/92 99 07/11/20 08:11 116 H 15 155/97 99 07/11/20 08:01 130 H 16 155/97 99 07/11/20 08:00 146 H 20 100 07/11/20 07:51 121 H 14 123/55 100 07/11/20 07:41 57 L 20 126/64 100 07/11/20 07:30 56 L 20 126/64 100 07/11/20 07:21 55 L 20 129/62 100 07/11/20 07:11 53 L 20 128/63 100 07/11/20 07:00 54 L 20 128/63 100 07/11/20 06:51 54 L 20 128/62 100 07/11/20 06:41 53 L 20 128/62 100 07/11/20 06:30 53 L 20 128/62 100 07/11/20 06:21 56 L 20 125/61 100 07/11/20 06:11 52 L 20 135/68 100 07/11/20 06:00 53 L 20 135/68 100 07/11/20 05:51 52 L 20 125/63 100 07/11/20 05:41 53 L 20 122/71 100 07/11/20 05:30 52 L 20 122/71 100 07/11/20 05:21 54 L 20 130/69 100 07/11/20 05:11 53 L 20 123/59 100 07/11/20 05:00 56 L 20 123/59 100 07/11/20 04:51 53 L 20 121/58 100 07/11/20 04:41 53 L 20 125/67 100 07/11/20 04:30 53 L 20 125/67 100 07/11/20 04:21 53 L 20 116/61 100 07/11/20 04:11 55 L 20 117/59 100 07/11/20 04:01 56 L 117/59 100 07/11/20 04:00 54 L 54 L 20 117/59 100 07/11/20 03:55 97.5 F L 07/11/20 03:51 55 L 20 122/64 100 07/11/20 03:41 56 L 20 111/55 100 07/11/20 03:30 55 L 20 111/55 100 07/11/20 03:21 58 L 20 116/59 99 07/11/20 03:11 57 L 20 113/72 100 07/11/20 03:00 59 L 20 113/72 100 07/11/20 02:51 61 20 123/72 98 07/11/20 02:41 74 20 115/58 96 07/11/20 02:30 56 L 20 115/58 100 07/11/20 02:21 59 L 20 129/73 100 07/11/20 02:11 53 L 20 117/62 100 07/11/20 02:00 60 20 117/62 100 07/11/20 01:51 52 L 20 141/75 100 07/11/20 01:41 48 L 20 130/58 100 07/11/20 01:30 43 L 20 130/58 98 07/11/20 01:21 45 L 20 127/61 98 07/11/20 01:11 47 L 20 132/66 99 07/11/20 01:00 48 L 20 132/66 98 07/11/20 00:51 49 L 20 128/67 99 07/11/20 00:41 45 L 20 125/63 99 07/11/20 00:30 47 L 20 125/63 98 07/11/20 00:21 49 L 20 115/58 98 07/11/20 00:11 46 L 20 113/53 98 07/11/20 00:00 47 L 49 L 20 115/53 98 07/10/20 23:51 45 L 20 113/53 98 07/10/20 23:41 47 L 20 114/51 98 07/10/20 23:32 97.8 F 07/10/20 23:30 48 L 20 113/53 98 07/10/20 23:21 47 L 20 114/51 98 07/10/20 23:18 48 L 114/51 98 07/10/20 23:11 49 L 20 113/51 99 07/10/20 23:00 48 L 20 113/51 98 07/10/20 22:51 48 L 20 116/57 99 07/10/20 22:41 53 L 20 107/52 99 07/10/20 22:30 47 L 20 107/52 98 07/10/20 22:21 46 L 20 109/54 99 07/10/20 22:11 46 L 20 109/57 99 07/10/20 22:00 46 L 20 120/58 99 07/10/20 21:51 51 L 20 120/58 99 07/10/20 21:41 49 L 20 118/64 99 07/10/20 21:30 54 L 20 118/64 99 07/10/20 21:21 50 L 20 122/59 99 07/10/20 21:11 48 L 20 119/63 99 07/10/20 21:00 55 L 20 119/63 100 07/10/20 20:51 54 L 17 119/60 99 07/10/20 20:41 53 L 20 119/65 99 07/10/20 20:30 53 L 20 119/65 100 07/10/20 20:21 55 L 20 115/59 99 07/10/20 20:11 52 L 20 114/60 100 07/10/20 20:00 98.9 F 50 L 50 L 20 114/60 100 07/10/20 19:55 55 L 111/58 99 07/10/20 19:51 51 L 20 111/58 99 07/10/20 19:41 55 L 20 111/58 99 07/10/20 19:30 54 L 20 111/58 100 07/10/20 19:21 53 L 21 112/58 99 07/10/20 19:11 58 L 21 105/54 100 07/10/20 19:00 52 L 20 105/54 100 07/10/20 18:51 57 L 21 107/57 99 07/10/20 18:41 57 L 20 106/55 98 07/10/20 18:30 68 19 106/55 99 07/10/20 18:21 80 20 111/60 98 07/10/20 18:11 81 20 122/70 97 07/10/20 18:00 82 20 122/70 96 07/10/20 17:51 98 H 13 135/90 93 07/10/20 17:41 109 H 13 127/67 87 07/10/20 17:30 102 H 17 126/84 85 07/10/20 17:21 51 L 20 131/67 96 07/10/20 17:11 53 L 20 126/64 95 07/10/20 17:00 49 L 20 126/64 94 07/10/20 16:51 57 L 20 127/67 96 07/10/20 16:42 53 L 117/57 96 07/10/20 16:41 48 L 19 117/57 95 07/10/20 16:30 53 L 20 117/57 93 07/10/20 16:20 47 L 20 114/52 95 07/10/20 16:11 49 L 20 110/54 94 07/10/20 16:00 51 L 52 L 20 110/54 93 07/10/20 15:51 48 L 20 110/50 94 07/10/20 15:41 46 L 20 103/50 95 07/10/20 15:30 48 L 20 103/50 94 07/10/20 15:21 47 L 20 97/49 95 07/10/20 15:11 49 L 20 94/45 95 07/10/20 15:00 50 L 20 94/45 95 07/10/20 14:51 52 L 20 99/49 96 07/10/20 14:40 57 L 20 82/39 96 07/10/20 14:30 58 L 20 85/42 95 07/10/20 14:21 62 20 91/43 96 07/10/20 14:11 61 20 94/43 95 07/10/20 14:01 56 L 20 94/43 95 07/10/20 14:00 98.4 F 07/10/20 13:51 58 L 20 141/77 95 07/10/20 13:41 94 H 15 112/61 88 07/10/20 13:30 52 L 20 112/61 97 07/10/20 13:21 52 L 20 102/54 95 07/10/20 13:11 52 L 20 105/56 95 07/10/20 13:00 52 L 20 105/56 95 07/10/20 12:51 54 L 20 110/58 94 07/10/20 12:41 56 L 20 142/81 93 07/10/20 12:30 91 H 17 142/81 89 07/10/20 12:21 101 H 10 L 136/73 89 07/10/20 12:14 83 141/115 92 07/10/20 12:11 104 H 10 L 88 07/10/20 12:04 60 20 91 07/10/20 12:00 97 H 59 L 18 95 07/10/20 11:50 94 H 14 142/75 87 07/10/20 11:41 87 10 L 102/55 89 07/10/20 11:30 51 L 20 102/55 94 07/10/20 11:21 51 L 20 99/53 94 07/10/20 11:11 52 L 20 104/54 94 07/10/20 11:01 54 L 20 104/54 93 07/10/20 10:51 56 L 20 135/66 95 07/10/20 10:41 105 H 14 149/91 91 07/10/20 10:30 98 H 14 154/98 90 07/10/20 10:21 60 20 149/91 93 07/10/20 10:11 101 H 13 143/89 89 07/10/20 10:00 99 F 100 H 18 143/89 91 07/10/20 09:51 104 H 17 132/98 90 - Physical Examination General: Other (intubated on the vent) HEENT: Positive: Other (Pupils fixed) Neck: Positive: neck supple Cardiac: Positive: Regular Rhythm Lungs: Positive: Decreased Breath Sounds Neuro: Positive: Weakness (Unresponsive, on the vent) Abdomen: Positive: Soft Skin: Positive: Clear Extremities: Absent: edema - Allied health notes Allied health notes reviewed: nursing
[2020-07-11] MEDS ORDERED: LACTATED RINGERS 3,000 ML ONE (11:16)
--- NOTE | 2020-07-11 13:05 | Progress Note ---
Assessment and Plan Acute and chronic hypoxic and hypercapnic respiratory failure: Acute exacerbation of COPD Tobacco use disorder/Nicotine dependence (on going) Hypernatremia Bradycardia History of coronary artery disease/CHF History of HTN Chronic narcotic dependence Chronic back pain Anxiety disorder History of depression -Heart rate control, needs better sedation -Daily ABG for 3 days -CXRs as clinically indicated -CBC, BMP in am -VTE prophylaxis- with SCD, CT head shows 2 small foci of parenchymal hemorrhage - Continue to taper systemic steroids - complete AB's per ID rec's (Vanc & Cefepime) - continue daily assessment of readiness to wean - continue supplemental oxygen with restrictive strategies re: severe COPD (PaO2 of 60 with O2 sats 88-90% is acceptable) - VAP bundle addressed (aspiration precautions; HOB > 40 degrees) - continue bronchodilators with pulmonary hygiene per RT - Titrate sedation for RASS of 0 to -1 - Maintenance of sleep-wake cycle, avoid delirium - continue enteral nutritional support at goal rate as tolerated - Accuchecks with glycemic control per SSI for target blood glucose of 140-180 mg/dL while critically ill; avoid hypoglycemia -Free water flushes and hypotonic solution to treat hypernatremia - Stress ulcer prophylaxis -Famotidine - Monitor hemodynamics closely - Avoid delirium; Avoid benzodiazepines - Nicotine withdrawal precautions, nicotine patch -Mobility, PT/OT, range of motion exercises - In view of ongoing smoking, recurrent hospital admission, will need to re-address advance directives and goals of care, once the patient is able to be a part of that discussion. Will also address smoking cessation again, once she is able to be a part of that discussion - discharge planning ongoing concurrently - continue other care per attending / other consultants CONDITION: CRITICAL PROGNOSIS: GUARDED CODE STATUS: FULL CODE The high probability of a clinically significant, sudden or life-threatening deterioration of the respiratory, cardiovascular, neurology, endocrine] system(s) required my full and direct attention, intervention and personal management. The aggregate critical care time was [32] minutes without overlap. Time includes spent on; [x] Data Review and interpretation [x] Patient assessment and monitoring of vital signs [x] Documentation [x] Medication orders and management Subjective Date of service: 07/11/20 Principal diagnosis: Ac and ch hypoxic & hypercapnic resp failure; AE-COPD; Tobacco use disorder Interval history: Patient is seen today for: Ac and ch hypoxic hypercapnic resp failure; AE-COPD; Tobacco use disorder/Nicotine dependence; Hypernatremia; HTN (hypotensive at presentation; Chronic narcotic dependence ; Chronic back pain; Anxiety disorder Seen and examined at bedside; 24-hour events reviewed; nursing and respiratory care staff consulted; no adverse overnight events reported to me; laying in bed; remains on MVS; FiO2 at 80% with peep at 12 ABG 7.39/48.8/95.6/28.9 Awake and alert, trying to sit up Objective Vital Signs - 12hr 07/11/20 07/11/20 07/11/20 01:11 01:21 01:30 Temperature Pulse Rate 47 L 45 L 43 L Pulse Rate [ From Monitor] Respiratory 20 20 20 Rate Blood Pressure 132/66 127/61 130/58 O2 Sat by Pulse 99 98 98 Oximetry 07/11/20 07/11/20 07/11/20 01:41 01:51 02:00 Temperature Pulse Rate 48 L 52 L 60 Pulse Rate [ From Monitor] Respiratory 20 20 20 Rate Blood Pressure 130/58 141/75 117/62 O2 Sat by Pulse 100 100 100 Oximetry 07/11/20 07/11/20 07/11/20 02:11 02:21 02:30 Temperature Pulse Rate 53 L 59 L 56 L Pulse Rate [ From Monitor] Respiratory 20 20 20 Rate Blood Pressure 117/62 129/73 115/58 O2 Sat by Pulse 100 100 100 Oximetry 07/11/20 07/11/20 07/11/20 02:41 02:51 03:00 Temperature Pulse Rate 74 61 59 L Pulse Rate [ From Monitor] Respiratory 20 20 20 Rate Blood Pressure 115/58 123/72 113/72 O2 Sat by Pulse 96 98 100 Oximetry 07/11/20 07/11/20 07/11/20 03:11 03:21 03:30 Temperature Pulse Rate 57 L 58 L 55 L Pulse Rate [ From Monitor] Respiratory 20 20 20 Rate Blood Pressure 113/72 116/59 111/55 O2 Sat by Pulse 100 99 100 Oximetry 07/11/20 07/11/20 07/11/20 03:41 03:51 03:55 Temperature 97.5 F L Pulse Rate 56 L 55 L Pulse Rate [ From Monitor] Respiratory 20 20 Rate Blood Pressure 111/55 122/64 O2 Sat by Pulse 100 100 Oximetry 07/11/20 07/11/20 07/11/20 04:00 04:01 04:11 Temperature Pulse Rate 54 L 56 L 55 L Pulse Rate [ 54 L From Monitor] Respiratory 20 20 Rate Blood Pressure 117/59 117/59 117/59 O2 Sat by Pulse 100 100 100 Oximetry 07/11/20 07/11/20 07/11/20 04:21 04:30 04:41 Temperature Pulse Rate 53 L 53 L 53 L Pulse Rate [ From Monitor] Respiratory 20 20 20 Rate Blood Pressure 116/61 125/67 125/67 O2 Sat by Pulse 100 100 100 Oximetry 07/11/20 07/11/20 07/11/20 04:51 05:00 05:11 Temperature Pulse Rate 53 L 56 L 53 L Pulse Rate [ From Monitor] Respiratory 20 20 20 Rate Blood Pressure 121/58 123/59 123/59 O2 Sat by Pulse 100 100 100 Oximetry 07/11/20 07/11/20 07/11/20 05:21 05:30 05:41 Temperature Pulse Rate 54 L 52 L 53 L Pulse Rate [ From Monitor] Respiratory 20 20 20 Rate Blood Pressure 130/69 122/71 122/71 O2 Sat by Pulse 100 100 100 Oximetry 07/11/20 07/11/20 07/11/20 05:51 06:00 06:11 Temperature Pulse Rate 52 L 53 L 52 L Pulse Rate [ From Monitor] Respiratory 20 20 20 Rate Blood Pressure 125/63 135/68 135/68 O2 Sat by Pulse 100 100 100 Oximetry 07/11/20 07/11/20 07/11/20 06:21 06:30 06:41 Temperature Pulse Rate 56 L 53 L 53 L Pulse Rate [ From Monitor] Respiratory 20 20 20 Rate Blood Pressure 125/61 128/62 128/62 O2 Sat by Pulse 100 100 100 Oximetry 07/11/20 07/11/20 07/11/20 06:51 07:00 07:11 Temperature Pulse Rate 54 L 54 L 53 L Pulse Rate [ From Monitor] Respiratory 20 20 20 Rate Blood Pressure 128/62 128/63 128/63 O2 Sat by Pulse 100 100 100 Oximetry 07/11/20 07/11/20 07/11/20 07:21 07:30 07:41 Temperature Pulse Rate 55 L 56 L 57 L Pulse Rate [ From Monitor] Respiratory 20 20 20 Rate Blood Pressure 129/62 126/64 126/64 O2 Sat by Pulse 100 100 100 Oximetry 07/11/20 07/11/20 07/11/20 07:51 08:00 08:01 Temperature Pulse Rate 121 H 130 H Pulse Rate [ 146 H From Monitor] Respiratory 14 20 16 Rate Blood Pressure 123/55 155/97 O2 Sat by Pulse 100 100 99 Oximetry 07/11/20 07/11/20 07/11/20 08:11 08:21 08:24 Temperature Pulse Rate 116 H 136 H 145 H Pulse Rate [ From Monitor] Respiratory 15 15 Rate Blood Pressure 155/97 148/92 158/56 O2 Sat by Pulse 99 99 100 Oximetry 07/11/20 07/11/20 07/11/20 08:30 08:41 08:51 Temperature Pulse Rate 135 H 140 H 143 H Pulse Rate [ From Monitor] Respiratory 16 11 L 16 Rate Blood Pressure 149/86 149/86 157/92 O2 Sat by Pulse 99 98 97 Oximetry 07/11/20 07/11/20 07/11/20 09:00 09:11 09:21 Temperature Pulse Rate 120 H 126 H 135 H Pulse Rate [ From Monitor] Respiratory 20 14 19 Rate Blood Pressure 131/73 131/73 131/73 O2 Sat by Pulse 99 99 99 Oximetry 07/11/20 07/11/20 07/11/20 09:30 09:41 09:51 Temperature Pulse Rate 136 H 139 H 138 H Pulse Rate [ From Monitor] Respiratory 20 15 20 Rate Blood Pressure 133/68 133/68 133/68 O2 Sat by Pulse 99 99 99 Oximetry 07/11/20 07/11/20 07/11/20 10:00 10:11 10:21 Temperature 98.9 F Pulse Rate 142 H 120 H 134 H Pulse Rate [ From Monitor] Respiratory 15 20 18 Rate Blood Pressure 133/70 133/70 133/70 O2 Sat by Pulse 99 99 99 Oximetry 07/11/20 07/11/20 07/11/20 10:30 10:41 10:51 Temperature Pulse Rate 130 H 120 H 121 H Pulse Rate [ From Monitor] Respiratory 18 20 20 Rate Blood Pressure 123/71 123/71 123/71 O2 Sat by Pulse 99 99 99 Oximetry 07/11/20 07/11/20 07/11/20 11:00 11:11 11:21 Temperature Pulse Rate 118 H 136 H 152 H Pulse Rate [ From Monitor] Respiratory 15 21 18 Rate Blood Pressure 116/69 116/69 116/69 O2 Sat by Pulse 99 99 98 Oximetry 07/11/20 07/11/20 07/11/20 11:31 11:41 11:51 Temperature Pulse Rate 139 H 125 H 150 H Pulse Rate [ From Monitor] Respiratory 19 17 18 Rate Blood Pressure 125/74 125/74 125/74 O2 Sat by Pulse 96 99 99 Oximetry 07/11/20 07/11/20 07/11/20 12:00 12:01 12:11 Temperature Pulse Rate 144 H 134 H Pulse Rate [ 148 H From Monitor] Respiratory 20 17 20 Rate Blood Pressure 140/92 140/92 O2 Sat by Pulse 100 96 97 Oximetry 07/11/20 07/11/20 07/11/20 12:21 12:31 12:41 Temperature Pulse Rate 150 H 135 H 140 H Pulse Rate [ From Monitor] Respiratory 17 18 14 Rate Blood Pressure 140/92 139/82 139/82 O2 Sat by Pulse 94 95 95 Oximetry Constitutional: appears uncomfortable, other (elderly obese female with mildly increased respiratory effort at rest on MVS) Eyes: non-icteric ENT: oropharynx moist, other (ETT 23 cm THUY) Neck: supple Effort: mildly labored Ascultation: Bilateral: diminished breath sounds, rhonchi (scant) Percussion: Bilateral: not dull Cardiovascular: regular rate and rhythm, other (sinus tach) Gastrointestinal: normoactive bowel sounds, soft, non-tender, non-distended (protuberant) Integumentary: rash Extremities: no cyanosis, pink and warm, no ischemia or petechiae, edema Neurologic: non-focal exam (grossly), pupils equal and round, other (awake) Psychiatric: anxious CBC and BMP: 07/08/20 20:41 07/08/20 07:31 ABG, PT/INR, D-dimer: ABG ABG pH 7.391 (7.320-7.450) 07/11/20 04:56 POC ABG pCO2 48.8 mmHg (32.0-48.0) H 07/11/20 04:56 ABG pCO2 46.7 mm Hg 07/08/20 03:20 POC ABG pO2 95.6 mmHg (83-108) 07/11/20 04:56 ABG pO2 85.5 mm Hg (80.0-90.0) 07/08/20 03:20 POC ABG HCO3 28.9 07/11/20 04:56 ABG O2 Saturation 96.8 % (95.0-99.0) 07/08/20 03:20 PT/INR, D-dimer PT 14.5 Sec. (12.2-14.9) 07/07/20 05:15 INR 1.12 (0.87-1.13) 07/07/20 05:15 D-Dimer 1298.20 ng/mlDDU (0-234) H 07/05/20 23:06 Abnormal lab findings: Abnormal Labs 07/05/20 07/05/20 07/05/20 22:55 23:06 23:06 Hct MCV RDW Lymph % (Auto) [place] % (Auto) Lymph # (Auto) [place] # (Auto) Seg Neutrophils % Seg Neuts % (Manual) Nucleated RBC % Seg Neutrophils # PT 15.2 H INR 1.18 H D-Dimer 1298.20 H ABG pH POC ABG pCO2 POC ABG pO2 ABG pO2 227.3 H ABG HCO3 31.3 H ABG O2 Saturation 99.3 H ABG Base Excess 5.8 H ABG Hemoglobin ABG Sodium ABG Glucose Oxyhemoglobin Potassium Chloride BUN 31 H Creatinine Glucose POC Glucose Calcium 7.7 L Lactate Dehydrogenase 217 H Troponin T 0.032 H C-Reactive Protein 1.60 H NT-Pro-B Natriuret Pep Total Protein 5.2 L Albumin 2.6 L LDL Cholesterol Direct 43 L TSH Arterial Blood Glucose Arterial Blood Ionized Calcium Salicylates Acetaminophen 07/05/20 07/05/20 07/05/20 23:06 23:06 23:06 Hct MCV RDW Lymph % (Auto) [place] % (Auto) Lymph # (Auto) [place] # (Auto) Seg Neutrophils % Seg Neuts % (Manual) Nucleated RBC % Seg Neutrophils # PT INR D-Dimer ABG pH POC ABG pCO2 POC ABG pO2 ABG pO2 ABG HCO3 ABG O2 Saturation ABG Base Excess ABG Hemoglobin ABG Sodium ABG Glucose Oxyhemoglobin Potassium Chloride BUN Creatinine Glucose POC Glucose Calcium Lactate Dehydrogenase Troponin T C-Reactive Protein NT-Pro-B Natriuret Pep Total Protein Albumin LDL Cholesterol Direct TSH 15.130 H Arterial Blood Glucose Arterial Blood Ionized Calcium Salicylates < 0.3 L Acetaminophen < 5.0 L 07/05/20 07/05/20 07/06/20 23:06 23:42 06:58 Hct MCV 98 H RDW 19.8 H Lymph % (Auto) [place] % (Auto) 15.9 H Lymph # (Auto) 0.9 L [place] # (Auto) 1.0 H Seg Neutrophils % Seg Neuts % (Manual) Nucleated RBC % Seg Neutrophils # PT INR D-Dimer ABG pH 7.533 H POC ABG pCO2 20.7 L POC ABG pO2 ABG pO2 ABG HCO3 ABG O2 Saturation ABG Base Excess ABG Hemoglobin 7.6 L ABG Sodium 132.3 L ABG Glucose 55 L Oxyhemoglobin Potassium Chloride BUN Creatinine Glucose POC Glucose Calcium Lactate Dehydrogenase 217 H Troponin T C-Reactive Protein 1.60 H NT-Pro-B Natriuret Pep Total Protein Albumin LDL Cholesterol Direct TSH Arterial Blood Glucose 55 L Arterial Blood Ionized Calcium 4.3 L Salicylates Acetaminophen 07/06/20 07/06/20 07/06/20 11:09 11:09 17:46 Hct 43.0 H MCV 100 H RDW 20.8 H Lymph % (Auto) 7.2 L [place] % (Auto) 11.4 H Lymph # (Auto) 0.7 L [place] # (Auto) 1.1 H Seg Neutrophils % 81.3 H Seg Neuts % (Manual) Nucleated RBC % Seg Neutrophils # 7.9 H PT INR D-Dimer ABG pH POC ABG pCO2 POC ABG pO2 ABG pO2 ABG HCO3 ABG O2 Saturation ABG Base Excess ABG Hemoglobin ABG Sodium ABG Glucose Oxyhemoglobin Potassium Chloride BUN Creatinine Glucose POC Glucose 43 L Calcium Lactate Dehydrogenase Troponin T C-Reactive Protein NT-Pro-B Natriuret Pep 81135 H Total Protein Albumin LDL Cholesterol Direct TSH Arterial Blood Glucose Arterial Blood Ionized Calcium Salicylates Acetaminophen 07/06/20 07/06/20 07/07/20 19:31 Unknown 04:55 Hct MCV RDW Lymph % (Auto) [place] % (Auto) Lymph # (Auto) [place] # (Auto) Seg Neutrophils % Seg Neuts % (Manual) Nucleated RBC % Seg Neutrophils # PT INR D-Dimer ABG pH POC ABG pCO2 POC ABG pO2 ABG pO2 70.8 L ABG HCO3 28.9 H ABG O2 Saturation 94.5 L ABG Base Excess 3.3 H ABG Hemoglobin 11.6 L ABG Sodium ABG Glucose Oxyhemoglobin 92.7 L Potassium 3.5 L Chloride 110.4 H BUN 19 H Creatinine 0.4 L Glucose 101 H POC Glucose < 40 L Calcium 7.2 L Lactate Dehydrogenase Troponin T C-Reactive Protein NT-Pro-B Natriuret Pep Total Protein 4.4 L Albumin 2.2 L LDL Cholesterol Direct TSH Arterial Blood Glucose Arterial Blood Ionized Calcium Salicylates Acetaminophen 07/07/20 07/07/20 07/08/20 05:15 05:15 03:20 Hct MCV 98 H RDW 19.9 H Lymph % (Auto) [place] % (Auto) Lymph # (Auto) [place] # (Auto) Seg Neutrophils % Seg Neuts % (Manual) 76.0 H Nucleated RBC % 1.0 H Seg Neutrophils # PT INR D-Dimer ABG pH POC ABG pCO2 POC ABG pO2 ABG pO2 ABG HCO3 29.1 H ABG O2 Saturation ABG Base Excess 3.8 H ABG Hemoglobin ABG Sodium ABG Glucose Oxyhemoglobin Potassium Chloride BUN Creatinine 0.5 L Glucose POC Glucose Calcium 7.6 L Lactate Dehydrogenase Troponin T C-Reactive Protein NT-Pro-B Natriuret Pep Total Protein Albumin LDL Cholesterol Direct TSH Arterial Blood Glucose Arterial Blood Ionized Calcium Salicylates Acetaminophen 07/08/20 07/09/20 07/09/20 07:31 00:02 04:05 Hct MCV RDW Lymph % (Auto) [place] % (Auto) Lymph # (Auto) [place] # (Auto) Seg Neutrophils % Seg Neuts % (Manual) Nucleated RBC % Seg Neutrophils # PT INR D-Dimer ABG pH POC ABG pCO2 POC ABG pO2 63.4 L ABG pO2 ABG HCO3 ABG O2 Saturation ABG Base Excess ABG Hemoglobin 11.8 L ABG Sodium 134.1 L ABG Glucose 137 H Oxyhemoglobin Potassium Chloride 108.6 H BUN Creatinine 0.3 L Glucose 177 H POC Glucose 118 H Calcium 7.7 L Lactate Dehydrogenase Troponin T C-Reactive Protein NT-Pro-B Natriuret Pep Total Protein Albumin LDL Cholesterol Direct TSH Arterial Blood Glucose 137 H Arterial Blood Ionized Calcium Salicylates Acetaminophen 07/09/20 07/09/20 07/09/20 05:10 12:38 17:31 Hct MCV RDW Lymph % (Auto) [place] % (Auto) Lymph # (Auto) [place] # (Auto) Seg Neutrophils % Seg Neuts % (Manual) Nucleated RBC % Seg Neutrophils # PT INR D-Dimer ABG pH POC ABG pCO2 POC ABG pO2 ABG pO2 ABG HCO3 ABG O2 Saturation ABG Base Excess ABG Hemoglobin ABG Sodium ABG Glucose Oxyhemoglobin Potassium Chloride BUN Creatinine Glucose POC Glucose 132 H 106 H 120 H Calcium Lactate Dehydrogenase Troponin T C-Reactive Protein NT-Pro-B Natriuret Pep Total Protein Albumin LDL Cholesterol Direct TSH Arterial Blood Glucose Arterial Blood Ionized Calcium Salicylates Acetaminophen 07/10/20 07/10/20 07/10/20 00:27 04:15 05:25 Hct MCV RDW Lymph % (Auto) [place] % (Auto) Lymph # (Auto) [place] # (Auto) Seg Neutrophils % Seg Neuts % (Manual) Nucleated RBC % Seg Neutrophils # PT INR D-Dimer ABG pH POC ABG pCO2 POC ABG pO2 60.7 L ABG pO2 ABG HCO3 ABG O2 Saturation ABG Base Excess ABG Hemoglobin ABG Sodium ABG Glucose 149 H Oxyhemoglobin Potassium Chloride BUN Creatinine Glucose POC Glucose 129 H 127 H Calcium Lactate Dehydrogenase Troponin T C-Reactive Protein NT-Pro-B Natriuret Pep Total Protein Albumin LDL Cholesterol Direct TSH Arterial Blood Glucose 149 H Arterial Blood Ionized Calcium Salicylates Acetaminophen 07/10/20 07/10/20 07/11/20 12:08 16:57 00:04 Hct MCV RDW Lymph % (Auto) [place] % (Auto) Lymph # (Auto) [place] # (Auto) Seg Neutrophils % Seg Neuts % (Manual) Nucleated RBC % Seg Neutrophils # PT INR D-Dimer ABG pH POC ABG pCO2 POC ABG pO2 ABG pO2 ABG HCO3 ABG O2 Saturation ABG Base Excess ABG Hemoglobin ABG Sodium ABG Glucose Oxyhemoglobin Potassium Chloride BUN Creatinine Glucose POC Glucose 129 H 152 H 127 H Calcium Lactate Dehydrogenase Troponin T C-Reactive Protein NT-Pro-B Natriuret Pep Total Protein Albumin LDL Cholesterol Direct TSH Arterial Blood Glucose Arterial Blood Ionized Calcium Salicylates Acetaminophen 07/11/20 07/11/20 07/11/20 04:56 05:29 11:47 Hct MCV RDW Lymph % (Auto) [place] % (Auto) Lymph # (Auto) [place] # (Auto) Seg Neutrophils % Seg Neuts % (Manual) Nucleated RBC % Seg Neutrophils # PT INR D-Dimer ABG pH POC ABG pCO2 48.8 H POC ABG pO2 ABG pO2 ABG HCO3 ABG O2 Saturation ABG Base Excess ABG Hemoglobin ABG Sodium ABG Glucose 153 H Oxyhemoglobin Potassium Chloride BUN Creatinine Glucose POC Glucose 127 H 155 H Calcium Lactate Dehydrogenase Troponin T C-Reactive Protein NT-Pro-B Natriuret Pep Total Protein Albumin LDL Cholesterol Direct TSH Arterial Blood Glucose 153 H Arterial Blood Ionized Calcium Salicylates Acetaminophen Chest x-ray: image reviewed Allied health notes reviewed: RT
[2020-07-12] MEDS: methylPREDNISolone Sod Succinate 125 MG/2 ML INJ IV SCH ×3 (05:51→22:08)
[2020-07-12] MEDS: fentaNYL DRIP Premix 2,000 MCG/100 ML BAG IV SCH (09:30)
[2020-07-12] MEDS: FAMOTIDINE 20 MG TAB PO SCH ×2 (09:31→22:08)
[2020-07-12] MEDS: QUEtiapine 100 MG TAB PO SCH ×2 (09:31→22:31)
--- NOTE | 2020-07-12 10:18 | Progress Note ---
Assessment and Plan Hx of Paroxysmal Atrial flutter/afib/MAT not on anticoagulation secondary to history of melena and anemia. History of CA/Coronary artery disease 01/2020 echo: normal LVEF 50-55% 2017 [facility]: [employer] of the RCA recommend for medical therapy. She did undergo PCI of the mid LAD using bare metal stent. Altered mental status -reason for admission initial head CT scan showed small 1 cm parenchymal hemorrhage in the left parietal juxtacortical region. Chest CTA negative for PE Respiratory failure negative for COVID 19 COPD on home oxygen Hypothyroidism TSH at 15.1 Recommend: Medical therapy for underlying coronary artery disease and paroxysmal atrial fibrillation when able to tolerate. Subjective Date of service: 07/12/20 Principal diagnosis: Ac and ch hypoxic & hypercapnic resp failure; AE-COPD; Tobacco use disorder Interval history: Patient remains intubated on mechanical ventilation. Sinus rhythm on telemetry. Objective Vital Signs Temp Pulse Pulse Resp BP Pulse Ox 07/12/20 09:00 102 H 21 111/59 93 07/12/20 08:50 56 L 20 111/59 95 07/12/20 08:40 56 L 20 111/59 95 07/12/20 08:30 54 L 20 111/59 94 07/12/20 08:25 55 L 128/80 94 07/12/20 08:20 56 L 20 128/80 94 07/12/20 08:10 59 L 20 128/80 95 07/12/20 08:00 98.1 F 70 20 128/80 96 07/12/20 07:50 104 H 19 117/68 94 07/12/20 07:40 100 H 18 117/68 91 07/12/20 07:30 59 L 20 117/68 97 07/12/20 07:20 62 19 110/59 97 07/12/20 07:10 64 20 110/59 97 07/12/20 07:00 65 20 110/59 95 07/12/20 06:50 65 20 98/51 97 07/12/20 06:40 68 20 98/51 97 07/12/20 06:30 65 20 122/68 97 07/12/20 06:20 64 20 122/68 97 07/12/20 06:10 69 20 122/68 99 07/12/20 06:00 74 20 122/68 99 07/12/20 05:50 96 H 20 137/81 98 07/12/20 05:40 67 20 137/81 99 07/12/20 05:30 72 20 114/68 98 07/12/20 05:20 89 20 134/82 97 07/12/20 05:10 94 H 20 134/82 96 07/12/20 05:00 92 H 21 137/81 96 07/12/20 04:50 102 H 20 134/82 95 07/12/20 04:40 99 H 21 134/82 96 07/12/20 04:30 99 H 20 134/82 95 07/12/20 04:20 106 H 21 117/76 96 07/12/20 04:14 111 H 130/79 99 07/12/20 04:10 85 20 117/76 97 07/12/20 04:00 87 88 20 130/79 96 07/12/20 03:50 75 17 130/82 97 07/12/20 03:40 92 H 19 130/82 97 07/12/20 03:30 101 H 19 130/82 95 07/12/20 03:20 99.9 F H 105 H 14 117/76 96 07/12/20 03:10 108 H 14 117/76 96 07/12/20 03:00 90 15 117/76 97 07/12/20 02:50 103 H 17 131/77 96 07/12/20 02:40 99 H 21 131/77 96 07/12/20 02:30 112 H 17 131/77 95 07/12/20 02:20 108 H 11 L 143/80 96 07/12/20 02:10 113 H 17 143/80 96 07/12/20 02:00 108 H 19 143/80 95 07/12/20 01:50 118 H 23 135/83 96 07/12/20 01:40 108 H 15 135/83 96 07/12/20 01:30 103 H 20 135/83 95 07/12/20 01:20 112 H 20 127/76 96 07/12/20 01:10 110 H 20 127/76 96 07/12/20 01:00 103 H 21 127/76 95 07/12/20 00:50 112 H 16 115/69 96 07/12/20 00:40 95 H 20 115/69 97 07/12/20 00:30 99 H 20 115/69 96 07/12/20 00:20 103 H 15 106/56 97 20 00:10 103 H 20 106/56 97 07/12/20 00:00 94 H 114 H 20 106/56 96 07/11/20 23:50 108 H 18 118/60 96 07/11/20 23:40 92 H 20 118/60 96 07/11/20 23:39 93 H 118/60 96 07/11/20 23:30 93 H 20 135/85 96 07/11/20 23:20 97 H 20 135/85 96 07/11/20 23:10 115 H 17 135/85 96 07/11/20 23:08 111 H 18 135/85 96 07/11/20 23:03 99.6 F 07/11/20 23:00 114 H 16 135/85 95 07/11/20 22:50 119 H 17 149/83 97 07/11/20 22:40 104 H 21 149/83 97 07/11/20 22:30 115 H 20 149/83 95 07/11/20 22:20 117 H 18 155/89 96 07/11/20 22:10 102 H 21 155/89 97 07/11/20 22:00 110 H 19 155/89 95 07/11/20 21:50 95 H 20 146/90 98 07/11/20 21:40 108 H 20 146/90 97 07/11/20 21:30 128 H 20 146/90 95 07/11/20 21:20 103 H 18 137/85 98 07/11/20 21:10 102 H 21 137/85 98 07/11/20 21:00 116 H 17 137/85 97 20 20:50 120 H 17 126/69 97 20 20:40 98 H 20 126/69 98 20 20:30 96 H 20 126/69 97 07/11/20 20:20 110 H 16 91/47 97 07/11/20 20:10 62 20 91/47 100 07/11/20 20:00 98.9 F 63 106 H 20 91/47 99 07/11/20 19:50 62 20 124/70 99 07/11/20 19:40 66 20 124/70 99 07/11/20 19:30 91 H 20 124/70 97 07/11/20 19:20 76 20 84/44 98 07/11/20 19:10 64 20 84/44 98 07/11/20 19:00 64 20 118/67 07/11/20 18:50 68 20 118/67 99 07/11/20 18:40 77 20 118/67 98 07/11/20 18:30 92 H 21 120/67 98 07/11/20 18:20 105 H 11 L 120/67 97 07/11/20 18:10 81 19 120/67 98 07/11/20 18:00 98.7 F 94 H 20 120/67 96 07/11/20 17:50 102 H 15 139/77 96 07/11/20 17:40 99 H 20 139/77 96 07/11/20 17:30 122 H 12 139/77 94 07/11/20 17:20 105 H 17 141/82 96 07/11/20 17:10 107 H 12 141/82 97 07/11/20 17:00 130 H 17 141/82 96 07/11/20 16:56 113 H 134/80 96 07/11/20 16:50 116 H 14 137/88 96 07/11/20 16:40 126 H 16 134/80 95 07/11/20 16:30 117 H 18 137/88 95 07/11/20 16:20 120 H 11 L 137/88 96 07/11/20 16:10 135 H 16 137/88 95 07/11/20 16:00 134 H 113 H 16 137/88 96 07/11/20 15:50 107 H 15 117/63 97 07/11/20 15:40 132 H 20 95 07/11/20 15:30 99 H 20 123/72 98 07/11/20 15:21 109 H 10 L 132/75 97 07/11/20 15:11 107 H 13 132/75 97 07/11/20 15:00 111 H 12 123/72 96 07/11/20 14:51 112 H 20 132/79 96 07/11/20 14:41 104 H 17 132/79 97 07/11/20 14:30 119 H 11 L 132/75 95 07/11/20 14:21 125 H 10 L 141/77 95 07/11/20 14:11 119 H 12 141/77 96 07/11/20 14:00 132 H 15 132/79 94 07/11/20 13:51 128 H 14 141/77 98 07/11/20 13:41 118 H 16 141/77 97 07/11/20 13:30 135 H 14 141/77 95 07/11/20 13:21 146 H 18 128/75 96 07/11/20 13:11 127 H 20 128/75 97 07/11/20 13:00 121 H 19 128/75 96 07/11/20 12:51 141 H 20 139/82 95 07/11/20 12:41 140 H 14 139/82 95 07/11/20 12:31 135 H 18 139/82 95 07/11/20 12:21 150 H 17 140/92 94 07/11/20 12:11 134 H 20 140/92 97 07/11/20 12:01 144 H 17 140/92 96 07/11/20 12:00 148 H 20 100 07/11/20 11:51 150 H 18 125/74 99 07/11/20 11:41 125 H 17 125/74 99 07/11/20 11:31 139 H 19 125/74 96 07/11/20 11:21 152 H 18 116/69 98 07/11/20 11:11 136 H 21 116/69 99 07/11/20 11:00 118 H 15 116/69 99 07/11/20 10:51 121 H 20 123/71 99 07/11/20 10:41 120 H 20 123/71 99 07/11/20 10:30 130 H 18 123/71 99 07/11/20 10:21 134 H 18 133/70 99 - Physical Examination General: Other (intubated on the vent) Cardiac: Positive: Reg Rate and Rhythm Extremities: Absent: edema - Allied health notes Allied health notes reviewed: nursing
--- NOTE | 2020-07-12 12:53 | Progress Note ---
Assessment and Plan Acute and chronic hypoxic and hypercapnic respiratory failure: Acute exacerbation of COPD Tobacco use disorder/Nicotine dependence (on going) Hypernatremia History of coronary artery disease/CHF History of HTN Chronic narcotic dependence Chronic back pain Anxiety disorder History of depression; Obesity; BMI 32.2 - repeat CXR in am - reduced FiO2 to 40% - wean FiO2 for target O2 sat's > 90% - reduce peep to 8 cm H2O in am and then SBT's shortly thereafter - follow MRI report - contact isolation - continue systemic steroids with slow taper - Levophed for target MAP >/= 65 mmHg - continue other care as below - complete AB's per ID rec's (Vanc & Cefepime) - continue daily SAT and SBT assessment as tolerated - continue supplemental oxygen with restrictive strategies acutely re: severe COPD (PaO2 of 60 with O2 sats 88-90% is acceptable) - VAP bundle addressed (aspiration precautions; HOB > 40 degrees) - continue bronchodilators with pulmonary hygiene per RT - Avoid benzodiazepine's, reduce the possibility of delirium - Continue with fentanyl, titrate for RASS of 0 to -1 - Maintenance of sleep-wake cycle, avoid delirium - continue enteral nutritional support at goal rate as tolerated - Accuchecks with glycemic control per SSI for target blood glucose of 140-180 mg/dL while critically ill; avoid hypoglycemia - VTE prophylaxis - Stress ulcer prophylaxis - Monitor hemodynamics closely - Avoid delirium; Avoid benzodiazepines - Nicotine withdrawal precautions, nicotine patch - In view of ongoing smoking, recurrent hospital admission, will need to re- address advance directives and goals of care, once the patient is able to be a part of that discussion. Will also address smoking cessation again, once she is able to be a part of that discussion - discharge planning ongoing concurrently - continue other care per attending / other provider contracting consultant's .... re-evaluate in am & prn CONDITION: CRITICAL PROGNOSIS: GUARDED CODE STATUS: FULL CODE The high probability of a clinically significant, sudden or life-threatening deterioration of the respiratory, cardiovascular, neurology, endocrine] system(s) required my full and direct attention, intervention and personal management. The aggregate critical care time was [35] minutes without overlap. Time includes spent on; [x] Data Review and interpretation [x] Patient assessment and monitoring of vital signs [x] Documentation [x] Medication orders and management Subjective Date of service: 07/12/20 Principal diagnosis: Ac and ch hypoxic & hypercapnic resp failure; AE-COPD; Tobacco use disorder Interval history: Patient is seen today for: Ac and ch hypoxic hypercapnic resp failure; AE-COPD; Tobacco use disorder/Nicotine dependence; Hypernatremia; HTN (hypotensive at presentation; Chronic narcotic dependence ; Chronic back pain; Anxiety disorder Seen and examined at bedside; 24-hour events reviewed; nursing and respiratory care staff consulted; no adverse overnight events reported to me; laying in bed; remains on MVS; FiO2 down to 45% but peep still at 12; follows some simple prompts; awaiting MRI brain; no seizures reported Objective Vital Signs - 12hr 07/12/20 07/12/20 07/12/20 01:00 01:10 01:20 Temperature Pulse Rate 103 H 110 H 112 H Pulse Rate [ From Monitor] Respiratory 21 20 20 Rate Blood Pressure 127/76 127/76 127/76 O2 Sat by Pulse 95 96 96 Oximetry 07/12/20 07/12/20 07/12/20 01:30 01:40 01:50 Temperature Pulse Rate 103 H 108 H 118 H Pulse Rate [ From Monitor] Respiratory 20 15 23 Rate Blood Pressure 135/83 135/83 135/83 O2 Sat by Pulse 95 96 96 Oximetry 07/12/20 07/12/20 07/12/20 02:00 02:10 02:20 Temperature Pulse Rate 108 H 113 H 108 H Pulse Rate [ From Monitor] Respiratory 19 17 11 L Rate Blood Pressure 143/80 143/80 143/80 O2 Sat by Pulse 95 96 96 Oximetry 07/12/20 07/12/20 07/12/20 02:30 02:40 02:50 Temperature Pulse Rate 112 H 99 H 103 H Pulse Rate [ From Monitor] Respiratory 17 21 17 Rate Blood Pressure 131/77 131/77 131/77 O2 Sat by Pulse 95 96 96 Oximetry 07/12/20 07/12/20 07/12/20 03:00 03:10 03:20 Temperature 99.9 F H Pulse Rate 90 108 H 105 H Pulse Rate [ From Monitor] Respiratory 15 14 14 Rate Blood Pressure 117/76 117/76 117/76 O2 Sat by Pulse 97 96 96 Oximetry 07/12/20 07/12/20 07/12/20 03:30 03:40 03:50 Temperature Pulse Rate 101 H 92 H 75 Pulse Rate [ From Monitor] Respiratory 19 19 17 Rate Blood Pressure 130/82 130/82 130/82 O2 Sat by Pulse 95 97 97 Oximetry 07/12/20 07/12/20 07/12/20 04:00 04:10 04:14 Temperature Pulse Rate 87 85 111 H Pulse Rate [ 88 From Monitor] Respiratory 20 20 Rate Blood Pressure 130/79 117/76 130/79 O2 Sat by Pulse 96 97 99 Oximetry 07/12/20 07/12/20 07/12/20 04:20 04:30 04:40 Temperature Pulse Rate 106 H 99 H 99 H Pulse Rate [ From Monitor] Respiratory 21 20 21 Rate Blood Pressure 117/76 134/82 134/82 O2 Sat by Pulse 96 95 96 Oximetry 07/12/20 07/12/20 07/12/20 04:50 05:00 05:10 Temperature Pulse Rate 102 H 92 H 94 H Pulse Rate [ From Monitor] Respiratory 20 21 20 Rate Blood Pressure 134/82 137/81 134/82 O2 Sat by Pulse 95 96 96 Oximetry 07/12/20 07/12/20 07/12/20 05:20 05:30 05:40 Temperature Pulse Rate 89 72 67 Pulse Rate [ From Monitor] Respiratory 20 20 20 Rate Blood Pressure 134/82 114/68 137/81 O2 Sat by Pulse 97 98 99 Oximetry 07/12/20 07/12/20 07/12/20 05:50 06:00 06:10 Temperature Pulse Rate 96 H 74 69 Pulse Rate [ From Monitor] Respiratory 20 20 20 Rate Blood Pressure 137/81 122/68 122/68 O2 Sat by Pulse 98 99 99 Oximetry 07/12/20 07/12/20 07/12/20 06:20 06:30 06:40 Temperature Pulse Rate 64 65 68 Pulse Rate [ From Monitor] Respiratory 20 20 20 Rate Blood Pressure 122/68 122/68 98/51 O2 Sat by Pulse 97 97 97 Oximetry 07/12/20 07/12/20 07/12/20 06:50 07:00 07:10 Temperature Pulse Rate 65 65 64 Pulse Rate [ From Monitor] Respiratory 20 20 20 Rate Blood Pressure 98/51 110/59 110/59 O2 Sat by Pulse 97 95 97 Oximetry 07/12/20 07/12/20 07/12/20 07:20 07:30 07:40 Temperature Pulse Rate 62 59 L 100 H Pulse Rate [ From Monitor] Respiratory 19 20 18 Rate Blood Pressure 110/59 117/68 117/68 O2 Sat by Pulse 97 97 91 Oximetry 07/12/20 07/12/20 07/12/20 07:50 08:00 08:10 Temperature 98.1 F Pulse Rate 104 H 70 59 L Pulse Rate [ From Monitor] Respiratory 19 20 20 Rate Blood Pressure 117/68 128/80 128/80 O2 Sat by Pulse 94 96 95 Oximetry 07/12/20 07/12/20 07/12/20 08:20 08:25 08:30 Temperature Pulse Rate 56 L 55 L 54 L Pulse Rate [ From Monitor] Respiratory 20 20 Rate Blood Pressure 128/80 128/80 111/59 O2 Sat by Pulse 94 94 94 Oximetry 07/12/20 07/12/20 07/12/20 08:40 08:50 09:00 Temperature Pulse Rate 56 L 56 L 102 H Pulse Rate [ From Monitor] Respiratory 20 20 21 Rate Blood Pressure 111/59 111/59 111/59 O2 Sat by Pulse 95 95 93 Oximetry 07/12/20 07/12/20 07/12/20 09:10 09:20 09:30 Temperature Pulse Rate 111 H 117 H 135 H Pulse Rate [ From Monitor] Respiratory 19 19 21 Rate Blood Pressure 144/98 144/98 160/96 O2 Sat by Pulse 93 93 93 Oximetry 07/12/20 07/12/20 07/12/20 09:40 09:50 10:00 Temperature Pulse Rate 87 81 72 Pulse Rate [ From Monitor] Respiratory 20 20 20 Rate Blood Pressure 160/96 160/96 112/57 O2 Sat by Pulse 95 95 95 Oximetry 07/12/20 07/12/20 07/12/20 10:10 10:20 10:30 Temperature Pulse Rate 73 106 H 106 H Pulse Rate [ From Monitor] Respiratory 20 20 20 Rate Blood Pressure 112/57 112/57 127/67 O2 Sat by Pulse 95 95 94 Oximetry 07/12/20 07/12/20 07/12/20 10:40 10:50 11:00 Temperature Pulse Rate 92 H 88 83 Pulse Rate [ From Monitor] Respiratory 20 20 20 Rate Blood Pressure 127/67 127/67 111/56 O2 Sat by Pulse 95 95 94 Oximetry 07/12/20 07/12/20 07/12/20 11:10 11:20 11:30 Temperature Pulse Rate 75 70 66 Pulse Rate [ From Monitor] Respiratory 20 20 20 Rate Blood Pressure 111/56 111/56 102/53 O2 Sat by Pulse 95 95 94 Oximetry 07/12/20 07/12/20 07/12/20 11:40 11:50 12:00 Temperature Pulse Rate 66 63 62 Pulse Rate [ From Monitor] Respiratory 20 20 20 Rate Blood Pressure 102/53 102/53 101/50 O2 Sat by Pulse 95 95 95 Oximetry 07/12/20 07/12/20 12:10 12:39 Temperature Pulse Rate 61 60 Pulse Rate [ From Monitor] Respiratory 20 Rate Blood Pressure 101/50 105/51 O2 Sat by Pulse 96 96 Oximetry Constitutional: no acute distress, other (elderly obese female without increased respiratory effort at rest on MVS) Eyes: non-icteric ENT: oropharynx moist, other (ETT 23 cm THUY) Neck: supple Effort: mildly labored Ascultation: Bilateral: clear, diminished breath sounds Percussion: Bilateral: not dull Cardiovascular: regular rate and rhythm, other (sinus tach) Gastrointestinal: normoactive bowel sounds, soft, non-tender, non-distended (protuberant) Integumentary: rash Extremities: no cyanosis, pink and warm, no ischemia or petechiae, edema Neurologic: non-focal exam (grossly), pupils equal and round, other (sedated, follows simple prompts intermittently) Psychiatric: other (Unable to assess re: sedation) CBC and BMP: 07/08/20 20:41 07/08/20 07:31 ABG, PT/INR, D-dimer: ABG ABG pH 7.429 (7.320-7.450) 07/12/20 03:18 POC ABG pCO2 43.9 mmHg (32.0-48.0) 07/12/20 03:18 ABG pCO2 46.7 mm Hg 07/08/20 03:20 POC ABG pO2 71.4 mmHg (83-108) L 07/12/20 03:18 ABG pO2 85.5 mm Hg (80.0-90.0) 07/08/20 03:20 POC ABG HCO3 28.4 07/12/20 03:18 ABG O2 Saturation 96.8 % (95.0-99.0) 07/08/20 03:20 PT/INR, D-dimer PT 14.5 Sec. (12.2-14.9) 07/07/20 05:15 INR 1.12 (0.87-1.13) 07/07/20 05:15 D-Dimer 1298.20 ng/mlDDU (0-234) H 07/05/20 23:06 Abnormal lab findings: Abnormal Labs 07/05/20 07/05/20 07/05/20 22:55 23:06 23:06 Hct MCV RDW Lymph % (Auto) [place] % (Auto) Lymph # (Auto) [place] # (Auto) Seg Neutrophils % Seg Neuts % (Manual) Nucleated RBC % Seg Neutrophils # PT 15.2 H INR 1.18 H D-Dimer 1298.20 H ABG pH POC ABG pCO2 POC ABG pO2 ABG pO2 227.3 H ABG HCO3 31.3 H ABG O2 Saturation 99.3 H ABG Base Excess 5.8 H ABG Hemoglobin ABG Sodium ABG Glucose Oxyhemoglobin Potassium Chloride BUN 31 H Creatinine Glucose POC Glucose Calcium 7.7 L Lactate Dehydrogenase 217 H Troponin T 0.032 H C-Reactive Protein 1.60 H NT-Pro-B Natriuret Pep Total Protein 5.2 L Albumin 2.6 L LDL Cholesterol Direct 43 L TSH Arterial Blood Glucose Arterial Blood Ionized Calcium Salicylates Acetaminophen 07/05/20 07/05/20 07/05/20 23:06 23:06 23:06 Hct MCV RDW Lymph % (Auto) [place] % (Auto) Lymph # (Auto) [place] # (Auto) Seg Neutrophils % Seg Neuts % (Manual) Nucleated RBC % Seg Neutrophils # PT INR D-Dimer ABG pH POC ABG pCO2 POC ABG pO2 ABG pO2 ABG HCO3 ABG O2 Saturation ABG Base Excess ABG Hemoglobin ABG Sodium ABG Glucose Oxyhemoglobin Potassium Chloride BUN Creatinine Glucose POC Glucose Calcium Lactate Dehydrogenase Troponin T C-Reactive Protein NT-Pro-B Natriuret Pep Total Protein Albumin LDL Cholesterol Direct TSH 15.130 H Arterial Blood Glucose Arterial Blood Ionized Calcium Salicylates < 0.3 L Acetaminophen < 5.0 L 07/05/20 07/05/20 07/06/20 23:06 23:42 06:58 Hct MCV 98 H RDW 19.8 H Lymph % (Auto) [place] % (Auto) 15.9 H Lymph # (Auto) 0.9 L [place] # (Auto) 1.0 H Seg Neutrophils % Seg Neuts % (Manual) Nucleated RBC % Seg Neutrophils # PT INR D-Dimer ABG pH 7.533 H POC ABG pCO2 20.7 L POC ABG pO2 ABG pO2 ABG HCO3 ABG O2 Saturation ABG Base Excess ABG Hemoglobin 7.6 L ABG Sodium 132.3 L ABG Glucose 55 L Oxyhemoglobin Potassium Chloride BUN Creatinine Glucose POC Glucose Calcium Lactate Dehydrogenase 217 H Troponin T C-Reactive Protein 1.60 H NT-Pro-B Natriuret Pep Total Protein Albumin LDL Cholesterol Direct TSH Arterial Blood Glucose 55 L Arterial Blood Ionized Calcium 4.3 L Salicylates Acetaminophen 07/06/20 07/06/20 07/06/20 11:09 11:09 17:46 Hct 43.0 H MCV 100 H RDW 20.8 H Lymph % (Auto) 7.2 L [place] % (Auto) 11.4 H Lymph # (Auto) 0.7 L [place] # (Auto) 1.1 H Seg Neutrophils % 81.3 H Seg Neuts % (Manual) Nucleated RBC % Seg Neutrophils # 7.9 H PT INR D-Dimer ABG pH POC ABG pCO2 POC ABG pO2 ABG pO2 ABG HCO3 ABG O2 Saturation ABG Base Excess ABG Hemoglobin ABG Sodium ABG Glucose Oxyhemoglobin Potassium Chloride BUN Creatinine Glucose POC Glucose 43 L Calcium Lactate Dehydrogenase Troponin T C-Reactive Protein NT-Pro-B Natriuret Pep 86118 H Total Protein Albumin LDL Cholesterol Direct TSH Arterial Blood Glucose Arterial Blood Ionized Calcium Salicylates Acetaminophen 07/06/20 07/06/20 07/07/20 19:31 Unknown 04:55 Hct MCV RDW Lymph % (Auto) [place] % (Auto) Lymph # (Auto) [place] # (Auto) Seg Neutrophils % Seg Neuts % (Manual) Nucleated RBC % Seg Neutrophils # PT INR D-Dimer ABG pH POC ABG pCO2 POC ABG pO2 ABG pO2 70.8 L ABG HCO3 28.9 H ABG O2 Saturation 94.5 L ABG Base Excess 3.3 H ABG Hemoglobin 11.6 L ABG Sodium ABG Glucose Oxyhemoglobin 92.7 L Potassium 3.5 L Chloride 110.4 H BUN 19 H Creatinine 0.4 L Glucose 101 H POC Glucose < 40 L Calcium 7.2 L Lactate Dehydrogenase Troponin T C-Reactive Protein NT-Pro-B Natriuret Pep Total Protein 4.4 L Albumin 2.2 L LDL Cholesterol Direct TSH Arterial Blood Glucose Arterial Blood Ionized Calcium Salicylates Acetaminophen 07/07/20 07/07/20 07/08/20 05:15 05:15 03:20 Hct MCV 98 H RDW 19.9 H Lymph % (Auto) [place] % (Auto) Lymph # (Auto) [place] # (Auto) Seg Neutrophils % Seg Neuts % (Manual) 76.0 H Nucleated RBC % 1.0 H Seg Neutrophils # PT INR D-Dimer ABG pH POC ABG pCO2 POC ABG pO2 ABG pO2 ABG HCO3 29.1 H ABG O2 Saturation ABG Base Excess 3.8 H ABG Hemoglobin ABG Sodium ABG Glucose Oxyhemoglobin Potassium Chloride BUN Creatinine 0.5 L Glucose POC Glucose Calcium 7.6 L Lactate Dehydrogenase Troponin T C-Reactive Protein NT-Pro-B Natriuret Pep Total Protein Albumin LDL Cholesterol Direct TSH Arterial Blood Glucose Arterial Blood Ionized Calcium Salicylates Acetaminophen 07/08/20 07/09/20 07/09/20 07:31 00:02 04:05 Hct MCV RDW Lymph % (Auto) [place] % (Auto) Lymph # (Auto) [place] # (Auto) Seg Neutrophils % Seg Neuts % (Manual) Nucleated RBC % Seg Neutrophils # PT INR D-Dimer ABG pH POC ABG pCO2 POC ABG pO2 63.4 L ABG pO2 ABG HCO3 ABG O2 Saturation ABG Base Excess ABG Hemoglobin 11.8 L ABG Sodium 134.1 L ABG Glucose 137 H Oxyhemoglobin Potassium Chloride 108.6 H BUN Creatinine 0.3 L Glucose 177 H POC Glucose 118 H Calcium 7.7 L Lactate Dehydrogenase Troponin T C-Reactive Protein NT-Pro-B Natriuret Pep Total Protein Albumin LDL Cholesterol Direct TSH Arterial Blood Glucose 137 H Arterial Blood Ionized Calcium Salicylates Acetaminophen 07/09/20 07/09/20 07/09/20 05:10 12:38 17:31 Hct MCV RDW Lymph % (Auto) [place] % (Auto) Lymph # (Auto) [place] # (Auto) Seg Neutrophils % Seg Neuts % (Manual) Nucleated RBC % Seg Neutrophils # PT INR D-Dimer ABG pH POC ABG pCO2 POC ABG pO2 ABG pO2 ABG HCO3 ABG O2 Saturation ABG Base Excess ABG Hemoglobin ABG Sodium ABG Glucose Oxyhemoglobin Potassium Chloride BUN Creatinine Glucose POC Glucose 132 H 106 H 120 H Calcium Lactate Dehydrogenase Troponin T C-Reactive Protein NT-Pro-B Natriuret Pep Total Protein Albumin LDL Cholesterol Direct TSH Arterial Blood Glucose Arterial Blood Ionized Calcium Salicylates Acetaminophen 07/10/20 07/10/20 07/10/20 00:27 04:15 05:25 Hct MCV RDW Lymph % (Auto) [place] % (Auto) Lymph # (Auto) [place] # (Auto) Seg Neutrophils % Seg Neuts % (Manual) Nucleated RBC % Seg Neutrophils # PT INR D-Dimer ABG pH POC ABG pCO2 POC ABG pO2 60.7 L ABG pO2 ABG HCO3 ABG O2 Saturation ABG Base Excess ABG Hemoglobin ABG Sodium ABG Glucose 149 H Oxyhemoglobin Potassium Chloride BUN Creatinine Glucose POC Glucose 129 H 127 H Calcium Lactate Dehydrogenase Troponin T C-Reactive Protein NT-Pro-B Natriuret Pep Total Protein Albumin LDL Cholesterol Direct TSH Arterial Blood Glucose 149 H Arterial Blood Ionized Calcium Salicylates Acetaminophen 07/10/20 07/10/20 07/11/20 12:08 16:57 00:04 Hct MCV RDW Lymph % (Auto) [place] % (Auto) Lymph # (Auto) [place] # (Auto) Seg Neutrophils % Seg Neuts % (Manual) Nucleated RBC % Seg Neutrophils # PT INR D-Dimer ABG pH POC ABG pCO2 POC ABG pO2 ABG pO2 ABG HCO3 ABG O2 Saturation ABG Base Excess ABG Hemoglobin ABG Sodium ABG Glucose Oxyhemoglobin Potassium Chloride BUN Creatinine Glucose POC Glucose 129 H 152 H 127 H Calcium Lactate Dehydrogenase Troponin T C-Reactive Protein NT-Pro-B Natriuret Pep Total Protein Albumin LDL Cholesterol Direct TSH Arterial Blood Glucose Arterial Blood Ionized Calcium Salicylates Acetaminophen 07/11/20 07/11/20 07/11/20 04:56 05:29 11:47 Hct MCV RDW Lymph % (Auto) [place] % (Auto) Lymph # (Auto) [place] # (Auto) Seg Neutrophils % Seg Neuts % (Manual) Nucleated RBC % Seg Neutrophils # PT INR D-Dimer ABG pH POC ABG pCO2 48.8 H POC ABG pO2 ABG pO2 ABG HCO3 ABG O2 Saturation ABG Base Excess ABG Hemoglobin ABG Sodium ABG Glucose 153 H Oxyhemoglobin Potassium Chloride BUN Creatinine Glucose POC Glucose 127 H 155 H Calcium Lactate Dehydrogenase Troponin T C-Reactive Protein NT-Pro-B Natriuret Pep Total Protein Albumin LDL Cholesterol Direct TSH Arterial Blood Glucose 153 H Arterial Blood Ionized Calcium Salicylates Acetaminophen 07/11/20 07/12/20 17:12 03:18 Hct MCV RDW Lymph % (Auto) [place] % (Auto) Lymph # (Auto) [place] # (Auto) Seg Neutrophils % Seg Neuts % (Manual) Nucleated RBC % Seg Neutrophils # PT INR D-Dimer ABG pH POC ABG pCO2 POC ABG pO2 71.4 L ABG pO2 ABG HCO3 ABG O2 Saturation ABG Base Excess ABG Hemoglobin ABG Sodium ABG Glucose 99 H Oxyhemoglobin Potassium Chloride BUN Creatinine Glucose POC Glucose 118 H Calcium Lactate Dehydrogenase Troponin T C-Reactive Protein NT-Pro-B Natriuret Pep Total Protein Albumin LDL Cholesterol Direct TSH Arterial Blood Glucose 99 H Arterial Blood Ionized Calcium Salicylates Acetaminophen Allied health notes reviewed: nursing
--- NOTE | 2020-07-12 18:07 | Progress Note ---
Assessment and Plan Assessment and plan: Acute and chronic hypoxic and hypercapnic respiratory failure Acute metabolic encephalopathy Intracranial hemorrhage incidental finding: No intervention at this time Right ICA stenosis: No intervention at this time Acute exacerbation of COPD Tobacco use disorder/Nicotine dependence (on going) Hypernatremia History of coronary artery disease/CHF History of HTN Chronic narcotic dependence Chronic back pain Anxiety disorder History of depression; Obesity; BMI 32.2 Suspected 2019 novel coronavirus: Tested negative 07/07/2020; patient was evaluated by ID and IV antibiotics discontinued. Pulmonary critical care is following. Neurosurgeon consulted in the emergency department and will follow the patient. Patient is still intubated and sedated and on mechanical ventilation, patient is still in the ED and will be transferred to ICU. Patient had episode of hypoglycemia yesterday and was treated according to hypoglycemia protocol. Patient was evaluated by cardiology for history paroxysmal A. fib and patient is not a candidate for anticoagulation because of anemia. 07/07/2020; patient has hypotension yesterday and requiring pressors and that evaluated and started her on IV cefepime and vancomycin. Patient has been followed with Dr Valles and Dr. marx before. 07/09/2020; patient has hypertension and on pressors, on IV cefepime and vancomycin. Patient was seen by neurosurgery and recommend MRI once patient is stable. No neurosurgical intervention is needed. 07/10/2020: patient is pressors, on IV cefepime day 3/5. Patient was seen by neurosurgery and recommend MRI once patient is stable. No neurosurgical intervention is needed. Pulmonary is following for vent management. 07/11/2020; patient is off pressors, on IV cefepime day 3/5. Patient was seen by neurosurgery and recommend MRI once patient is stable. No neurosurgical intervention is needed. Pulmonary is following for vent management. 07/12: No clinically changes, continue with current management,. remains on sedation, awaiting MRI. Patient remains a full code. The high probability of a clinically significant, sudden or life threatening deterioration of the [respiratory, neurology] system(s) required my full and direct attention, intervention and personal management. The aggregate critical care time was [35] minutes. This time is in addition to time spent performing reported procedures but includes the following: [x] Data Review and interpretation [x] Patient assessment and monitoring of vital signs [x] Documentation [x] Medication orders and management History Interval history: Patient seen and examined remains on full ventilatory support Hospitalist Physical - Physical exam Narrative exam: VITAL SIGNS: Reviewed. GENERAL: The patient appears normally developed, on full ventilatory support vital signs as documented. HEAD: No signs of head trauma. EYES: Pupils are equal. Extraocular motions intact. EARS: Hearing grossly intact. MOUTH: Oropharynx is normal. NECK: No adenopathy, no JVD. CHEST: Chest with clear breath sounds bilaterally. No wheezes, rales, or rhonchi. CARDIAC: Regular rate and rhythm. S1 and S2, without murmurs, gallops, or rubs. VASCULAR: No Edema. Peripheral pulses normal and equal in all extremities. ABDOMEN: Soft, non tender and non distended. No rebound or guarding, and no masses palpated. Bowel Sounds normal. MUSCULOSKELETAL: Extremities without clubbing, cyanosis or edema. NEUROLOGIC EXAM: Sedated PSYCHIATRIC: Sedated SKIN: detail exam as documented in skin assessment intubated and sedated - Constitutional Vitals: Temp Pulse Resp BP Pulse Ox 98.9 F 113 H 21 154/98 95 07/12/20 14:00 07/12/20 17:50 07/12/20 17:50 07/12/20 17:50 07/12/20 17:50 General appearance: Present: other (intubated on the vent) HEART Score - HEART Score Troponin: Troponin T 0.032 ng/mL (0.00-0.029) H 07/05/20 23:06 Results - Labs CBC & Chem 7: 07/08/20 20:41 07/08/20 07:31 Labs: Laboratory Last Values WBC 9.8 K/mm3 (4.5-11.0) 07/07/20 05:15 RBC 3.90 M/mm3 (3.65-5.03) 07/07/20 05:15 Hgb 12.3 gm/dl (10.1-14.3) 07/08/20 20:41 Hct 39.2 % (30.3-42.9) 07/08/20 20:41 MCV 98 fl (79-97) H 07/07/20 05:15 MCH 30 pg (28-32) 07/07/20 05:15 MCHC 31 % (30-34) 07/07/20 05:15 RDW 19.9 % (13.2-15.2) H 07/07/20 05:15 Plt Count 201 K/mm3 (140-440) 07/07/20 05:15 Lymph % (Auto) 7.2 % (13.4-35.0) L 07/06/20 11:09 [place] % (Auto) Machine Plug Shaper 07/07/20 05:15 Eos % (Auto) 0.0 % (0.0-4.3) 07/06/20 11:09 Baso % (Auto) 0.1 % (0.0-1.8) 07/06/20 11:09 Lymph # (Auto) 0.7 K/mm3 (1.2-5.4) L 07/06/20 11:09 [place] # (Auto) 1.1 K/mm3 (0.0-0.8) H 07/06/20 11:09 Eos # (Auto) 0.0 K/mm3 (0.0-0.4) 07/06/20 11:09 Baso # (Auto) 0.0 K/mm3 (0.0-0.1) 07/06/20 11:09 Add Manual Diff Complete 07/07/20 05:15 Total Counted 100 07/07/20 05:15 Seg Neutrophils % 81.3 % (40.0-70.0) H 07/06/20 11:09 Seg Neuts % (Manual) 76.0 % (40.0-70.0) H 07/07/20 05:15 Band Neutrophils % 0 % 07/07/20 05:15 Lymphocytes % (Manual) 24.0 % (13.4-35.0) 07/07/20 05:15 Reactive Lymphs % (Man) 0 % 07/07/20 05:15 Monocytes % (Manual) 0 % (0.0-7.3) 07/07/20 05:15 Eosinophils % (Manual) 0 % (0.0-4.3) 07/07/20 05:15 Basophils % (Manual) 0 % (0.0-1.8) 07/07/20 05:15 Metamyelocytes % 0 % 07/07/20 05:15 Myelocytes % 0 % 07/07/20 05:15 Promyelocytes % 0 % 07/07/20 05:15 Blast Cells % 0 % 07/07/20 05:15 Nucleated RBC % 1.0 % (0.0-0.9) H 07/07/20 05:15 Seg Neutrophils # 7.9 K/mm3 (1.8-7.7) H 07/06/20 11:09 Seg Neutrophils # Man 7.4 K/mm3 (1.8-7.7) 07/07/20 05:15 Band Neutrophils # 0.0 K/mm3 07/07/20 05:15 Lymphocytes # (Manual) 2.4 K/mm3 (1.2-5.4) 07/07/20 05:15 Abs React Lymphs (Man) 0.0 K/mm3 07/07/20 05:15 Monocytes # (Manual) 0.0 K/mm3 (0.0-0.8) 07/07/20 05:15 Eosinophils # (Manual) 0.0 K/mm3 (0.0-0.4) 07/07/20 05:15 Basophils # (Manual) 0.0 K/mm3 (0.0-0.1) 07/07/20 05:15 Metamyelocytes # 0.0 K/mm3 07/07/20 05:15 Myelocytes # 0.0 K/mm3 07/07/20 05:15 Promyelocytes # 0.0 K/mm3 07/07/20 05:15 Blast Cells # 0.0 K/mm3 07/07/20 05:15 WBC Morphology Not Reportable 07/07/20 05:15 Hypersegmented Neuts Not Reportable 07/07/20 05:15 Hyposegmented Neuts Not Reportable 07/07/20 05:15 Hypogranular Neuts Not Reportable 07/07/20 05:15 Smudge Cells Not Reportable 07/07/20 05:15 Toxic Granulation Not Reportable 07/07/20 05:15 Toxic Vacuolation Not Reportable 07/07/20 05:15 Dohle Bodies Not Reportable 07/07/20 05:15 Pelger-Huet Anomaly Not Reportable 07/07/20 05:15 Marissa Rods Not Reportable 07/07/20 05:15 Platelet Estimate Consistent w auto 07/07/20 05:15 Clumped Platelets Not Reportable 07/07/20 05:15 Plt Clumps, EDTA Not Reportable 07/07/20 05:15 Large Platelets Not Reportable 07/07/20 05:15 Giant Platelets Not Reportable 07/07/20 05:15 Platelet Satelliting Not Reportable 07/07/20 05:15 Plt Morphology Comment Not Reportable 07/07/20 05:15 RBC Morphology Not Reportable 07/07/20 05:15 Dimorphic RBCs Not Reportable 07/07/20 05:15 Polychromasia Not Reportable 07/07/20 05:15 Hypochromasia Not Reportable 07/07/20 05:15 Poikilocytosis Not Reportable 07/07/20 05:15 Anisocytosis 1+ 07/07/20 05:15 Microcytosis Not Reportable 07/07/20 05:15 Macrocytosis Few 07/07/20 05:15 Spherocytes Not Reportable 07/07/20 05:15 Pappenheimer Bodies Not Reportable 07/07/20 05:15 Sickle Cells Not Reportable 07/07/20 05:15 Target Cells Not Reportable 07/07/20 05:15 Tear Drop Cells Not Reportable 07/07/20 05:15 Ovalocytes Rare 07/07/20 05:15 Helmet Cells Not Reportable 07/07/20 05:15 [place] Bodies Not Reportable 07/07/20 05:15 [place] Rings Not Reportable 07/07/20 05:15 Demi Cells Not Reportable 07/07/20 05:15 Bite Cells Not Reportable 07/07/20 05:15 Crenated Cell Not Reportable 07/07/20 05:15 Elliptocytes Not Reportable 07/07/20 05:15 Acanthocytes (Spur) Not Reportable 07/07/20 05:15 Rouleaux Not Reportable 07/07/20 05:15 Hemoglobin C Crystals Not Reportable 07/07/20 05:15 Schistocytes Rare 07/07/20 05:15 Malaria parasites Not Reportable 07/07/20 05:15 Ba Bodies Not Reportable 07/07/20 05:15 Hem Pathologist Commnt No 07/07/20 05:15 PT 14.5 Sec. (12.2-14.9) 07/07/20 05:15 INR 1.12 (0.87-1.13) 07/07/20 05:15 APTT 30.8 Sec. (24.2-36.6) 07/05/20 23:06 D-Dimer 1298.20 ng/mlDDU (0-234) H 07/05/20 23:06 ABG pH 7.429 (7.320-7.450) 07/12/20 03:18 POC ABG pCO2 43.9 mmHg (32.0-48.0) 07/12/20 03:18 ABG pCO2 46.7 mm Hg 07/08/20 03:20 POC ABG pO2 71.4 mmHg (83-108) L 07/12/20 03:18 ABG pO2 85.5 mm Hg (80.0-90.0) 07/08/20 03:20 POC ABG HCO3 28.4 07/12/20 03:18 ABG HCO3 29.1 mmol/L (20.0-26.0) H 07/08/20 03:20 ABG O2 Saturation 96.8 % (95.0-99.0) 07/08/20 03:20 ABG O2 Content 16.6 (0.0-44) 07/08/20 03:20 POC ABG Base Excess 3.6 07/12/20 03:18 ABG Base Excess 3.8 mmol/L (-2.0-3.0) H 07/08/20 03:20 ABG Hemoglobin 12.2 (12.0-17.5) 07/12/20 03:18 ABG Carboxyhemoglobin 1.3 % (0.0-5.0) 07/08/20 03:20 ABG Methemoglobin 0.5 % (0.0-1.5) 07/08/20 03:20 ABG Sodium 136.8 mmol/L (136.0-145.0) 07/12/20 03:18 ABG Potassium 3.7 mmol/L (3.40-4.50) 07/12/20 03:18 ABG Chloride 104.0 mmol/L (98-107) 07/12/20 03:18 ABG Glucose 99 mg/dL (65-95) H 07/12/20 03:18 Oxyhemoglobin 95.1 % (95.0-99.0) 07/08/20 03:20 FiO2 55.0 07/12/20 03:18 Sodium 144 mmol/L (137-145) 07/08/20 07:31 Potassium 3.8 mmol/L (3.6-5.0) 07/08/20 07:31 Chloride 108.6 mmol/L (98-107) H 07/08/20 07:31 Carbon Dioxide 29 mmol/L (22-30) 07/08/20 07:31 Anion Gap 10 mmol/L 07/08/20 07:31 BUN 7 mg/dL (7-17) 07/08/20 07:31 Creatinine 0.3 mg/dL (0.6-1.2) L 07/08/20 07:31 Estimated GFR > 60 ml/min 07/08/20 07:31 BUN/Creatinine Ratio 23 % 07/08/20 07:31 Glucose 177 mg/dL (65-100) H 07/08/20 07:31 POC Glucose 112 mg/dL (70-105) H 07/12/20 17:42 Lactic Acid 0.80 mmol/L (0.7-2.0) 07/05/20 23:06 Calcium 7.7 mg/dL (8.4-10.2) L 07/08/20 07:31 Magnesium 2.00 mg/dL (1.7-2.3) 07/05/20 23:06 Ferritin 60.8 ng/mL (10.0-200.0) 07/05/20 23:06 Total Bilirubin 0.30 mg/dL (0.1-1.2) 07/06/20 Unknown AST 13 units/L (5-40) 07/06/20 Unknown ALT 10 units/L (7-56) 07/06/20 Unknown Alkaline Phosphatase 71 units/L (35-129) 07/06/20 Unknown Ammonia 40.0 umol/L (25-60) 07/05/20 23:06 Lactate Dehydrogenase 217 units/L (91-180) H 07/05/20 23:06 Lactate Dehydrogenase 217 units/L (91-180) H 07/05/20 23:06 Total Creatine Kinase 55 units/L (30-135) 07/05/20 23:06 Troponin T 0.032 ng/mL (0.00-0.029) H 07/05/20 23:06 C-Reactive Protein 1.60 mg/dL (0.00-1.30) H 07/05/20 23:06 C-Reactive Protein 1.60 mg/dL (0.00-1.30) H 07/05/20 23:06 NT-Pro-B Natriuret Pep 01430 pg/mL (0-900) H 07/06/20 11:09 Total Protein 4.4 g/dL (6.3-8.2) L 07/06/20 Unknown Albumin 2.2 g/dL (3.9-5) L 07/06/20 Unknown Albumin/Globulin Ratio 1.0 % 07/06/20 Unknown Triglycerides 126 mg/dL (2-149) 07/05/20 23:06 Cholesterol 109 mg/dL (50-199) 07/05/20 23:06 LDL Cholesterol Direct 43 mg/dL (50-130) L 07/05/20 23:06 HDL Cholesterol 42 mg/dL (40-59) 07/05/20 23:06 Cholesterol/HDL Ratio 2.59 % 07/05/20 23:06 Procalcitonin < 0.05 ng/mL (<0.15) 07/05/20 23:06 TSH 15.130 mlU/mL (0.270-4.200) H 07/05/20 23:06 Free T4 0.79 ng/dL (0.76-1.46) 07/06/20 11:09 Arterial Blood Glucose 99 mg/dL (65-95) H 07/12/20 03:18 Arterial Blood Ionized Calcium 5.0 mg/dL (4.6-5.3) 07/12/20 03:18 Urine Color Mildred (Yellow) 07/05/20 Unknown Urine Turbidity Clear (Clear) 07/05/20 Unknown Urine pH 5.0 (5.0-7.0) 07/05/20 Unknown Ur Specific [place] 1.025 (1.003-1.030) 07/05/20 Unknown Urine Protein 30 mg/dl mg/dL (Negative) 07/05/20 Unknown Urine Glucose (UA) Neg mg/dL (Negative) 07/05/20 Unknown Urine Ketones Neg mg/dL (Negative) 07/05/20 Unknown Urine Blood Neg (Negative) 07/05/20 Unknown Urine Nitrite Neg (Negative) 07/05/20 Unknown Urine Bilirubin Neg (Negative) 07/05/20 Unknown Urine Urobilinogen 4.0 mg/dL (<2.0) 07/05/20 Unknown Ur Leukocyte Esterase Neg (Negative) 07/05/20 Unknown Urine WBC (Auto) 2.0 /HPF (0.0-6.0) 07/05/20 Unknown Urine RBC (Auto) 1.0 /HPF (0.0-6.0) 07/05/20 Unknown U Epithel Cells (Auto) 1.0 /HPF (0-13.0) 07/05/20 Unknown Hyaline Casts 16 /LPF 07/05/20 Unknown Urine Mucus Few /HPF 07/05/20 Unknown Salicylates < 0.3 mg/dL (2.8-20.0) L 07/05/20 23:06 Acetaminophen < 5.0 ug/mL (10.0-30.0) L 07/05/20 23:06 Plasma/Serum Alcohol < 0.01 % (0-0.07) 07/05/20 23:06 Coronavirus (PCR) Negative (Negative) 07/06/20 Unknown Blood Type O POSITIVE 07/05/20 23:10 Antibody Screen Negative 07/05/20 23:10 Microbiology: Microbiology 07/08/20 Unknown Nares - Left MRSA Culture - Final Roberts/IV: Voiding Method Indwelling Catheter IV Catheter Type [Right Upper PICC Line arm] IV Catheter Type [Right INT / Saline Lock External Jugular] IV Catheter Type [Left Triple Lumen Cath Internal Jugular] Active Medications - Current Medications Current Medications: Generic Name Dose Route Start Last Admin Trade Name Freq PRN Reason Stop Dose Admin Acetaminophen 650 mg 07/06/20 02:44 Tylenol MN Q4H PRN Pain, Mild (1-3) Lipase/Protease/Amylase 1 each 07/08/20 14:30 Pancrejay [place] 10,500 Unit FEEDTUBE PRN PRN For Clogged Feeding Tube Bisacodyl 10 mg 07/06/20 02:44 Dulcolax MN QDAY PRN Constipation unrelieved by MOM Dextrose 0 ml 07/06/20 19:30 07/06/20 19:25 D50w (25gm) Syringe IV 30 ml ONCE PRN Administration Hypoglycemia Famotidine 20 mg 07/09/20 10:00 07/12/20 09:31 Pepcid PO 20 mg BID LUZ MARIA Administration Fentanyl 50 mcg 07/05/20 22:08 07/06/20 01:20 Sublimaze IV 50 mcg Q10MIN PRN Administration ANALGESIA Hydralazine HCl 5 mg 07/06/20 02:30 Apresoline IV Q30MIN PRN Hypertension Hydrophilic Ointment 1 applic 07/05/20 22:08 Vaseline Lip Therapy TP Q2HR PRN Dry Lips Fentanyl Citrate 2,000 mcg in 100 mls @ 3.561 mls/hr 07/05/20 23:00 07/12/20 17:53 Fentanyl Drip Premix IV 2 mcg/kg/hr TITR LUZ MARIA 7.121 mls/hr Titration Protocol 1 MCG/KG/HR Norepinephrine 4 mg in 250 mls @ 7.5 mls/hr 07/06/20 22:00 07/11/20 08:50 Levophed Drip 4 Mg/Ns 250 Ml IV 0 mcg/min TITR LUZ MARIA 0 mls/hr Titration Protocol 2 MCG/MIN Dopamine HCl/Dextrose 800 mg in 250 mls @ 2.671 mls/hr 07/07/20 04:00 Intropin Drip 800 Mg/D5w 250 Ml IV TITR LUZ MARIA Protocol 2 MCG/KG/MIN Midazolam HCl 100 mg/ Sodium 100 mls @ 2 mls/hr 07/10/20 13:30 07/12/20 17:54 Chloride IV 1 mg/hr TITR LUZ MARIA 1 mls/hr Titration Protocol 2 MG/HR Dextrose 1,000 mls @ 100 mls/hr 07/10/20 21:00 D5w IV DIRECT LUZ MARIA Methylprednisolone Sodium Succinate 60 mg 07/08/20 22:00 07/12/20 14:40 Solu-Medrol IV 60 mg Q8HR LUZ MARIA Administration Midazolam HCl 2 mg 07/10/20 12:56 Versed IV Q10MIN PRN Sedation Morphine Sulfate 2 mg 07/06/20 02:44 Morphine IV Q4H PRN Pain, Moderate (4-6) Multi-Ingred Cream/Lotion/Oil/Oint 1 applic 07/05/20 22:08 Artificial Tears Ophth Oint OU Q4HR PRN Dry Eye(s) Ondansetron HCl 4 mg 07/06/20 02:44 Zofran IV Q8H PRN N/V unrelieved by Live Quetiapine Fumarate 300 mg 07/10/20 14:00 07/12/20 09:31 Seroquel PO 300 mg BID LUZ MARIA Administration Simple Syrup 15 ml 07/08/20 14:30 Simple Syrup FEEDTUBE PRN PRN Hypoglycemia Simple Syrup 30 ml 07/08/20 14:30 Simple Syrup FEEDTUBE PRN PRN Hypoglycemia Sodium Bicarbonate 325 mg 07/08/20 14:30 Sodium Bicarbonate FEEDTUBE PRN PRN For Clogged Feeding Tube Sodium Chloride 10 ml 07/06/20 10:00 07/12/20 09:31 Sodium Chloride Flush Syringe 10 Ml IV 10 ml BID LUZ MARIA Administration Sodium Chloride 10 ml 07/06/20 02:44 Sodium Chloride Flush Syringe 10 Ml IV PRN PRN LINE FLUSH Nutrition/Malnutrition Assess - Dietary Evaluation Nutrition/Malnutrition Findings: Nutrition Notes Start: 07/06/20 09:30 Freq: Status: Active Protocol: Document 07/12/20 13:14 LP (Rec: 07/12/20 13:22 LP [id number]) Nutrition Notes Initial or Follow up Reassessment Current Diagnosis COPD,Heart Failure,Respiratory Failure Other Pertinent Diagnosis Acute enephalopathy, COVID-19 negative, Intracranial hemorrhage Current Diet Promote at 10ml/hr Labs/Tests Reviewed Pertinent Medications Solumedrol Height 5 ft Weight 71.214 kg [place] Body Weight (kg) 45.45 BMI 30.7 Weight Status Obese Subjective/Other Information Pt no longer needs trophic feeds and may increase to goal . Percent of energy/protein needs met: 16%/16% Burn Absent Trauma Absent Food Allergy No Current % PO Negligible Minimum of two criteria No physical signs of malnutrition #1 Nutrition Diagnosis Inadequate oral intake Diagnosis Progress(for reassessment Continues documentation) Is patient on ventilator? Yes Is Patient Ambulatory and/or Out of Bed No REE-([facility]-confined to bed) [phone] Calculation Used for Recommendations [facility] Additional Notes Protein: >2 g/kg IBW: >91g Fluid: 1 ml/kcal Nutrition Intervention Change Diet Order: TF Nutrition Support: Promote 1.0 at 60 ml/hr (goal rate) Flush 50ml q4h Kcal 1,440 Protein (gm) 90 Fluid (mL) 1,208 Goal #1 Meet at least 80% of kcal and protein needs via TF Anticipated Discharge Needs: Unable to determine at this time Follow-Up By: 07/14/20 Additional Comments Follow for TF tolerance at goal rate
--- NOTE | 2020-07-12 18:37 | Progress Note ---
Assessment and Plan Cultures: Coronavirus PCR: negative 07/05/2020 blood culture: no growth thus far 07/05/2020 tracheal aspirate culture: Usual respiratory neelima 07/05/2020 urine culture: Mixed growth A/P: 59-year-old female assisted resident with history of CHF, COPD, gastroesophageal reflux disease, CKD, history of back surgery with spinal hardware was admitted to the hospital 07/05/2020 with altered mental status: #Shock: Unclear etiology, septic shock seems less likely. Continue empiric antibiotics. No clear infectious source identified on imaging. Remains afebrile and without leucocytosis. #Acute hypoxic respiratory failure: Pneumonia v/s pulmonary edema. BNP is elevated. Procalcitonin is low. No fever or leukocytosis. ?Aspiration pneumonitis. #Acute encephalopathy, small parenchymal hemorrhage: seen by neurosurgery. Recs: Completed cefepime. Patricio Gutierrez MD [facility] ([facility]) O: [phone] F: [phone] Subjective Date of service: 07/12/20 Principal diagnosis: Ac and ch hypoxic & hypercapnic resp failure; AE-COPD; Tobacco use disorder Interval history: Afebrile, no acute change. Remains mechanically ventilated. Objective - Exam Narrative Exam: Constitutional: more awake, intubated, on the vent Head, Ears, Nose: Normocephalic, atraumatic. External ears, nose normal Eyes: Conjunctivae/corneas clear. No icterus. No ptosis. Neck: intubated Oral: intubated Cardiovascular: S1, S2 + Respiratory: AE fair bilaterally and equal GI: Soft, bowel sounds + Musculoskeletal: No pedal edema, no cyanosis. Skin: No rash or abscess Hem/Lymphatic: No palpable cervical or supraclavicular nodes. No lymphangitis Psych: restless Neurological: more awake, restless, intubated, on the vent, exam limited - Constitutional Vitals: Vital Signs Temp Pulse Resp BP Pulse Ox 97.9 F 132 H 22 137/100 95 07/12/20 18:00 07/12/20 18:20 07/12/20 18:20 07/12/20 18:20 07/12/20 18:20 Temperature -Last 24 Hours Temperature 97.9 F Temperature 98.9 F Temperature 98.1 F Temperature 99.9 F Temperature 99.6 F Temperature 98.9 F - Labs CBC & Chem 7: 07/08/20 20:41 07/08/20 07:31 Labs: Abnormal lab results 07/12/20 07/12/20 Range/Units 03:18 17:42 POC ABG pO2 71.4 L (83-108) mmHg ABG Glucose 99 H (65-95) mg/dL POC Glucose 112 H (70-105) mg/dL Arterial Blood Glucose 99 H (65-95) mg/dL
[2020-07-13] MEDS: fentaNYL DRIP Premix 2,000 MCG/100 ML BAG IV SCH ×2 (00:23→18:27)
[2020-07-13] MEDS: methylPREDNISolone Sod Succinate 125 MG/2 ML INJ IV SCH ×3 (06:08→22:30)
--- NOTE | 2020-07-13 07:55 | Progress Note ---
Assessment and Plan Assessment and plan: Acute and chronic hypoxic and hypercapnic respiratory failure Acute metabolic encephalopathy Intracranial hemorrhage incidental finding: No intervention at this time Right ICA stenosis: No intervention at this time Acute exacerbation of COPD Tobacco use disorder/Nicotine dependence (on going) Hypernatremia History of coronary artery disease/CHF History of HTN Chronic narcotic dependence Chronic back pain Anxiety disorder History of depression; Obesity; BMI 32.2 Suspected 2019 novel coronavirus: Tested negative 07/07/2020; patient was evaluated by ID and IV antibiotics discontinued. Pulmonary critical care is following. Neurosurgeon consulted in the emergency department and will follow the patient. Patient is still intubated and sedated and on mechanical ventilation, patient is still in the ED and will be transferred to ICU. Patient had episode of hypoglycemia yesterday and was treated according to hypoglycemia protocol. Patient was evaluated by cardiology for history paroxysmal A. fib and patient is not a candidate for anticoagulation because of anemia. 07/07/2020; patient has hypotension yesterday and requiring pressors and that evaluated and started her on IV cefepime and vancomycin. Patient has been followed with Dr Valles and Dr. marx before. 07/09/2020; patient has hypertension and on pressors, on IV cefepime and vancomycin. Patient was seen by neurosurgery and recommend MRI once patient is stable. No neurosurgical intervention is needed. 07/10/2020: patient is pressors, on IV cefepime day 3/5. Patient was seen by neurosurgery and recommend MRI once patient is stable. No neurosurgical intervention is needed. Pulmonary is following for vent management. 07/11/2020; patient is off pressors, on IV cefepime day 3/5. Patient was seen by neurosurgery and recommend MRI once patient is stable. No neurosurgical intervention is needed. Pulmonary is following for vent management. 07/12: No clinically changes, continue with current management,. remains on sedation, awaiting MRI. Patient remains a full code. 07/13: No new changes, will repeat Labs, wean vent as tolerated. Attempt to reach family The high probability of a clinically significant, sudden or life threatening deterioration of the [respiratory, neurology] system(s) required my full and direct attention, intervention and personal management. The aggregate critical care time was [35] minutes. This time is in addition to time spent performing reported procedures but includes the following: [x] Data Review and interpretation [x] Patient assessment and monitoring of vital signs [x] Documentation [x] Medication orders and management History Interval history: Patient seen and examined remains on full ventilatory support Hospitalist Physical - Physical exam Narrative exam: VITAL SIGNS: Reviewed. GENERAL: The patient appears normally developed, on full ventilatory support vital signs as documented. HEAD: No signs of head trauma. EYES: Pupils are equal. Extraocular motions intact. EARS: Hearing grossly intact. MOUTH: Oropharynx is normal. NECK: No adenopathy, no JVD. CHEST: Chest with clear breath sounds bilaterally. No wheezes, rales, or rhonchi. CARDIAC: Regular rate and rhythm. S1 and S2, without murmurs, gallops, or rubs. VASCULAR: No Edema. Peripheral pulses normal and equal in all extremities. ABDOMEN: Soft, non tender and non distended. No rebound or guarding, and no masses palpated. Bowel Sounds normal. MUSCULOSKELETAL: Extremities without clubbing, cyanosis or edema. NEUROLOGIC EXAM: Sedated PSYCHIATRIC: Sedated SKIN: detail exam as documented in skin assessment intubated and sedated - Constitutional Vitals: Temp Pulse Resp BP Pulse Ox 98.8 F 95 H 20 127/70 95 07/13/20 03:49 07/13/20 06:10 07/13/20 06:10 07/13/20 06:10 07/13/20 06:10 General appearance: Present: other (intubated on the vent) HEART Score - HEART Score Troponin: Troponin T 0.032 ng/mL (0.00-0.029) H 07/05/20 23:06 Results - Labs CBC & Chem 7: 07/13/20 09:50 07/13/20 09:50 Labs: Laboratory Last Values WBC 9.8 K/mm3 (4.5-11.0) 07/07/20 05:15 RBC 3.90 M/mm3 (3.65-5.03) 07/07/20 05:15 Hgb 12.3 gm/dl (10.1-14.3) 07/08/20 20:41 Hct 39.2 % (30.3-42.9) 07/08/20 20:41 MCV 98 fl (79-97) H 07/07/20 05:15 MCH 30 pg (28-32) 07/07/20 05:15 MCHC 31 % (30-34) 07/07/20 05:15 RDW 19.9 % (13.2-15.2) H 07/07/20 05:15 Plt Count 201 K/mm3 (140-440) 07/07/20 05:15 Lymph % (Auto) 7.2 % (13.4-35.0) L 07/06/20 11:09 [place] % (Auto) Deliverer Outside 07/07/20 05:15 Eos % (Auto) 0.0 % (0.0-4.3) 07/06/20 11:09 Baso % (Auto) 0.1 % (0.0-1.8) 07/06/20 11:09 Lymph # (Auto) 0.7 K/mm3 (1.2-5.4) L 07/06/20 11:09 [place] # (Auto) 1.1 K/mm3 (0.0-0.8) H 07/06/20 11:09 Eos # (Auto) 0.0 K/mm3 (0.0-0.4) 07/06/20 11:09 Baso # (Auto) 0.0 K/mm3 (0.0-0.1) 07/06/20 11:09 Add Manual Diff Complete 07/07/20 05:15 Total Counted 100 07/07/20 05:15 Seg Neutrophils % 81.3 % (40.0-70.0) H 07/06/20 11:09 Seg Neuts % (Manual) 76.0 % (40.0-70.0) H 07/07/20 05:15 Band Neutrophils % 0 % 07/07/20 05:15 Lymphocytes % (Manual) 24.0 % (13.4-35.0) 07/07/20 05:15 Reactive Lymphs % (Man) 0 % 07/07/20 05:15 Monocytes % (Manual) 0 % (0.0-7.3) 07/07/20 05:15 Eosinophils % (Manual) 0 % (0.0-4.3) 07/07/20 05:15 Basophils % (Manual) 0 % (0.0-1.8) 07/07/20 05:15 Metamyelocytes % 0 % 07/07/20 05:15 Myelocytes % 0 % 07/07/20 05:15 Promyelocytes % 0 % 07/07/20 05:15 Blast Cells % 0 % 07/07/20 05:15 Nucleated RBC % 1.0 % (0.0-0.9) H 07/07/20 05:15 Seg Neutrophils # 7.9 K/mm3 (1.8-7.7) H 07/06/20 11:09 Seg Neutrophils # Man 7.4 K/mm3 (1.8-7.7) 07/07/20 05:15 Band Neutrophils # 0.0 K/mm3 07/07/20 05:15 Lymphocytes # (Manual) 2.4 K/mm3 (1.2-5.4) 07/07/20 05:15 Abs React Lymphs (Man) 0.0 K/mm3 07/07/20 05:15 Monocytes # (Manual) 0.0 K/mm3 (0.0-0.8) 07/07/20 05:15 Eosinophils # (Manual) 0.0 K/mm3 (0.0-0.4) 07/07/20 05:15 Basophils # (Manual) 0.0 K/mm3 (0.0-0.1) 07/07/20 05:15 Metamyelocytes # 0.0 K/mm3 07/07/20 05:15 Myelocytes # 0.0 K/mm3 07/07/20 05:15 Promyelocytes # 0.0 K/mm3 07/07/20 05:15 Blast Cells # 0.0 K/mm3 07/07/20 05:15 WBC Morphology Not Reportable 07/07/20 05:15 Hypersegmented Neuts Not Reportable 07/07/20 05:15 Hyposegmented Neuts Not Reportable 07/07/20 05:15 Hypogranular Neuts Not Reportable 07/07/20 05:15 Smudge Cells Not Reportable 07/07/20 05:15 Toxic Granulation Not Reportable 07/07/20 05:15 Toxic Vacuolation Not Reportable 07/07/20 05:15 Dohle Bodies Not Reportable 07/07/20 05:15 Pelger-Huet Anomaly Not Reportable 07/07/20 05:15 Marissa Rods Not Reportable 07/07/20 05:15 Platelet Estimate Consistent w auto 07/07/20 05:15 Clumped Platelets Not Reportable 07/07/20 05:15 Plt Clumps, EDTA Not Reportable 07/07/20 05:15 Large Platelets Not Reportable 07/07/20 05:15 Giant Platelets Not Reportable 07/07/20 05:15 Platelet Satelliting Not Reportable 07/07/20 05:15 Plt Morphology Comment Not Reportable 07/07/20 05:15 RBC Morphology Not Reportable 07/07/20 05:15 Dimorphic RBCs Not Reportable 07/07/20 05:15 Polychromasia Not Reportable 07/07/20 05:15 Hypochromasia Not Reportable 07/07/20 05:15 Poikilocytosis Not Reportable 07/07/20 05:15 Anisocytosis 1+ 07/07/20 05:15 Microcytosis Not Reportable 07/07/20 05:15 Macrocytosis Few 07/07/20 05:15 Spherocytes Not Reportable 07/07/20 05:15 Pappenheimer Bodies Not Reportable 07/07/20 05:15 Sickle Cells Not Reportable 07/07/20 05:15 Target Cells Not Reportable 07/07/20 05:15 Tear Drop Cells Not Reportable 07/07/20 05:15 Ovalocytes Rare 07/07/20 05:15 Helmet Cells Not Reportable 07/07/20 05:15 [place] Bodies Not Reportable 07/07/20 05:15 [place] Rings Not Reportable 07/07/20 05:15 Demi Cells Not Reportable 07/07/20 05:15 Bite Cells Not Reportable 07/07/20 05:15 Crenated Cell Not Reportable 07/07/20 05:15 Elliptocytes Not Reportable 07/07/20 05:15 Acanthocytes (Spur) Not Reportable 07/07/20 05:15 Rouleaux Not Reportable 07/07/20 05:15 Hemoglobin C Crystals Not Reportable 07/07/20 05:15 Schistocytes Rare 07/07/20 05:15 Malaria parasites Not Reportable 07/07/20 05:15 Ab Bodies Not Reportable 07/07/20 05:15 Hem Pathologist Commnt No 07/07/20 05:15 PT 14.5 Sec. (12.2-14.9) 07/07/20 05:15 INR 1.12 (0.87-1.13) 07/07/20 05:15 APTT 30.8 Sec. (24.2-36.6) 07/05/20 23:06 D-Dimer 1298.20 ng/mlDDU (0-234) H 07/05/20 23:06 ABG pH 7.462 (7.320-7.450) H 07/13/20 03:33 POC ABG pCO2 39.0 mmHg (32.0-48.0) 07/13/20 03:33 ABG pCO2 46.7 mm Hg 07/08/20 03:20 POC ABG pO2 69.1 mmHg (83-108) L 07/13/20 03:33 ABG pO2 85.5 mm Hg (80.0-90.0) 07/08/20 03:20 POC ABG HCO3 27.2 07/13/20 03:33 ABG HCO3 29.1 mmol/L (20.0-26.0) H 07/08/20 03:20 ABG O2 Saturation 96.8 % (95.0-99.0) 07/08/20 03:20 ABG O2 Content 16.6 (0.0-44) 07/08/20 03:20 POC ABG Base Excess 3.3 07/13/20 03:33 ABG Base Excess 3.8 mmol/L (-2.0-3.0) H 07/08/20 03:20 ABG Hemoglobin 12.1 (12.0-17.5) 07/13/20 03:33 ABG Carboxyhemoglobin 1.3 % (0.0-5.0) 07/08/20 03:20 ABG Methemoglobin 0.5 % (0.0-1.5) 07/08/20 03:20 ABG Sodium 136.1 mmol/L (136.0-145.0) 07/13/20 03:33 ABG Potassium 3.8 mmol/L (3.40-4.50) 07/13/20 03:33 ABG Chloride 103.0 mmol/L (98-107) 07/13/20 03:33 ABG Glucose 125 mg/dL (65-95) H 07/13/20 03:33 Oxyhemoglobin 95.1 % (95.0-99.0) 07/08/20 03:20 FiO2 40.0 07/13/20 03:33 Sodium 144 mmol/L (137-145) 07/08/20 07:31 Potassium 3.8 mmol/L (3.6-5.0) 07/08/20 07:31 Chloride 108.6 mmol/L (98-107) H 07/08/20 07:31 Carbon Dioxide 29 mmol/L (22-30) 07/08/20 07:31 Anion Gap 10 mmol/L 07/08/20 07:31 BUN 7 mg/dL (7-17) 07/08/20 07:31 Creatinine 0.3 mg/dL (0.6-1.2) L 07/08/20 07:31 Estimated GFR > 60 ml/min 07/08/20 07:31 BUN/Creatinine Ratio 23 % 07/08/20 07:31 Glucose 177 mg/dL (65-100) H 07/08/20 07:31 POC Glucose 103 mg/dL (70-105) 07/13/20 04:56 Lactic Acid 0.80 mmol/L (0.7-2.0) 07/05/20 23:06 Calcium 7.7 mg/dL (8.4-10.2) L 07/08/20 07:31 Magnesium 2.00 mg/dL (1.7-2.3) 07/05/20 23:06 Ferritin 60.8 ng/mL (10.0-200.0) 07/05/20 23:06 Total Bilirubin 0.30 mg/dL (0.1-1.2) 07/06/20 Unknown AST 13 units/L (5-40) 07/06/20 Unknown ALT 10 units/L (7-56) 07/06/20 Unknown Alkaline Phosphatase 71 units/L (35-129) 07/06/20 Unknown Ammonia 40.0 umol/L (25-60) 07/05/20 23:06 Lactate Dehydrogenase 217 units/L (91-180) H 07/05/20 23:06 Lactate Dehydrogenase 217 units/L (91-180) H 07/05/20 23:06 Total Creatine Kinase 55 units/L (30-135) 07/05/20 23:06 Troponin T 0.032 ng/mL (0.00-0.029) H 07/05/20 23:06 C-Reactive Protein 1.60 mg/dL (0.00-1.30) H 07/05/20 23:06 C-Reactive Protein 1.60 mg/dL (0.00-1.30) H 07/05/20 23:06 NT-Pro-B Natriuret Pep 88762 pg/mL (0-900) H 07/06/20 11:09 Total Protein 4.4 g/dL (6.3-8.2) L 07/06/20 Unknown Albumin 2.2 g/dL (3.9-5) L 07/06/20 Unknown Albumin/Globulin Ratio 1.0 % 07/06/20 Unknown Triglycerides 126 mg/dL (2-149) 07/05/20 23:06 Cholesterol 109 mg/dL (50-199) 07/05/20 23:06 LDL Cholesterol Direct 43 mg/dL (50-130) L 07/05/20 23:06 HDL Cholesterol 42 mg/dL (40-59) 07/05/20 23:06 Cholesterol/HDL Ratio 2.59 % 07/05/20 23:06 Procalcitonin < 0.05 ng/mL (<0.15) 07/05/20 23:06 TSH 15.130 mlU/mL (0.270-4.200) H 07/05/20 23:06 Free T4 0.79 ng/dL (0.76-1.46) 07/06/20 11:09 Arterial Blood Glucose 125 mg/dL (65-95) H 07/13/20 03:33 Arterial Blood Ionized Calcium 4.9 mg/dL (4.6-5.3) 07/13/20 03:33 Urine Color Mildred (Yellow) 07/05/20 Unknown Urine Turbidity Clear (Clear) 07/05/20 Unknown Urine pH 5.0 (5.0-7.0) 07/05/20 Unknown Ur Specific [place] 1.025 (1.003-1.030) 07/05/20 Unknown Urine Protein 30 mg/dl mg/dL (Negative) 07/05/20 Unknown Urine Glucose (UA) Neg mg/dL (Negative) 07/05/20 Unknown Urine Ketones Neg mg/dL (Negative) 07/05/20 Unknown Urine Blood Neg (Negative) 07/05/20 Unknown Urine Nitrite Neg (Negative) 07/05/20 Unknown Urine Bilirubin Neg (Negative) 07/05/20 Unknown Urine Urobilinogen 4.0 mg/dL (<2.0) 07/05/20 Unknown Ur Leukocyte Esterase Neg (Negative) 07/05/20 Unknown Urine WBC (Auto) 2.0 /HPF (0.0-6.0) 07/05/20 Unknown Urine RBC (Auto) 1.0 /HPF (0.0-6.0) 07/05/20 Unknown U Epithel Cells (Auto) 1.0 /HPF (0-13.0) 07/05/20 Unknown Hyaline Casts 16 /LPF 07/05/20 Unknown Urine Mucus Few /HPF 07/05/20 Unknown Salicylates < 0.3 mg/dL (2.8-20.0) L 07/05/20 23:06 Acetaminophen < 5.0 ug/mL (10.0-30.0) L 07/05/20 23:06 Plasma/Serum Alcohol < 0.01 % (0-0.07) 07/05/20 23:06 Coronavirus (PCR) Negative (Negative) 07/06/20 Unknown Blood Type O POSITIVE 07/05/20 23:10 Antibody Screen Negative 07/05/20 23:10 Microbiology: Microbiology 07/08/20 Unknown Nares - Left MRSA Culture - Final Roberts/IV: Voiding Method Indwelling Catheter IV Catheter Type [Right Upper PICC Line arm] IV Catheter Type [Right INT / Saline Lock External Jugular] IV Catheter Type [Left Triple Lumen Cath Internal Jugular] Active Medications - Current Medications Current Medications: Generic Name Dose Route Start Last Admin Trade Name Freq PRN Reason Stop Dose Admin Acetaminophen 650 mg 07/06/20 02:44 Tylenol KS Q4H PRN Pain, Mild (1-3) Lipase/Protease/Amylase 1 each 07/08/20 14:30 Pancreaze 10,500 Unit FEEDTUBE PRN PRN For Clogged Feeding Tube Bisacodyl 10 mg 07/06/20 02:44 Dulcolax KS QDAY PRN Constipation unrelieved by MOM Dextrose 0 ml 07/06/20 19:30 07/06/20 19:25 D50w (25gm) Syringe IV 30 ml ONCE PRN Administration Hypoglycemia Famotidine 20 mg 07/09/20 10:00 07/12/20 22:08 Pepcid PO 20 mg BID LUZ MARIA Administration Fentanyl 50 mcg 07/05/20 22:08 07/06/20 01:20 Sublimaze IV 50 mcg Q10MIN PRN Administration ANALGESIA Hydralazine HCl 5 mg 07/06/20 02:30 Apresoline IV Q30MIN PRN Hypertension Hydrophilic Ointment 1 applic 07/05/20 22:08 Vaseline Lip Therapy TP Q2HR PRN Dry Lips Fentanyl Citrate 2,000 mcg in 100 mls @ 3.561 mls/hr 07/05/20 23:00 07/13/20 03:00 Fentanyl Drip Premix IV 2 mcg/kg/hr TITR LUZ MARIA 7.121 mls/hr Titration Protocol 1 MCG/KG/HR Norepinephrine 4 mg in 250 mls @ 7.5 mls/hr 07/06/20 22:00 07/11/20 08:50 Levophed Drip 4 Mg/Ns 250 Ml IV 0 mcg/min TITR LUZ MARIA 0 mls/hr Titration Protocol 2 MCG/MIN Dopamine HCl/Dextrose 800 mg in 250 mls @ 2.671 mls/hr 07/07/20 04:00 Intropin Drip 800 Mg/D5w 250 Ml IV TITR LUZ MARIA Protocol 2 MCG/KG/MIN Midazolam HCl 100 mg/ Sodium 100 mls @ 2 mls/hr 07/10/20 13:30 07/12/20 17:54 Chloride IV 1 mg/hr TITR LUZ MARIA 1 mls/hr Titration Protocol 2 MG/HR Dextrose 1,000 mls @ 100 mls/hr 07/10/20 21:00 D5w IV DIRECT LUZ MARIA Methylprednisolone Sodium Succinate 60 mg 07/08/20 22:00 07/13/20 06:08 Solu-Medrol IV 60 mg Q8HR LUZ MARIA Administration Midazolam HCl 2 mg 07/10/20 12:56 Versed IV Q10MIN PRN Sedation Morphine Sulfate 2 mg 07/06/20 02:44 Morphine IV Q4H PRN Pain, Moderate (4-6) Multi-Ingred Cream/Lotion/Oil/Oint 1 applic 07/05/20 22:08 Artificial Tears Ophth Oint OU Q4HR PRN Dry Eye(s) Ondansetron HCl 4 mg 07/06/20 02:44 Zofran IV Q8H PRN N/V unrelieved by Live Quetiapine Fumarate 300 mg 07/10/20 14:00 07/12/20 22:31 Seroquel PO 300 mg BID LUZ MARIA Administration Simple Syrup 15 ml 07/08/20 14:30 Simple Syrup FEEDTUBE PRN PRN Hypoglycemia Simple Syrup 30 ml 07/08/20 14:30 Simple Syrup FEEDTUBE PRN PRN Hypoglycemia Sodium Bicarbonate 325 mg 07/08/20 14:30 Sodium Bicarbonate FEEDTUBE PRN PRN For Clogged Feeding Tube Sodium Chloride 10 ml 07/06/20 10:00 07/12/20 22:09 Sodium Chloride Flush Syringe 10 Ml IV 10 ml BID LUZ MARIA Administration Sodium Chloride 10 ml 07/06/20 02:44 Sodium Chloride Flush Syringe 10 Ml IV PRN PRN LINE FLUSH Nutrition/Malnutrition Assess - Dietary Evaluation Nutrition/Malnutrition Findings: Nutrition Notes Start: 07/06/20 09:30 Freq: Status: Active Protocol: Document 07/12/20 13:14 LP (Rec: 07/12/20 13:22 LP [id number]) Nutrition Notes Initial or Follow up Reassessment Current Diagnosis COPD,Heart Failure,Respiratory Failure Other Pertinent Diagnosis Acute enephalopathy, COVID-19 negative, Intracranial hemorrhage Current Diet Promote at 10ml/hr Labs/Tests Reviewed Pertinent Medications Solumedrol Height 5 ft Weight 71.214 kg [place] Body Weight (kg) 45.45 BMI 30.7 Weight Status Obese Subjective/Other Information Pt no longer needs trophic feeds and may increase to goal . Percent of energy/protein needs met: 16%/16% Burn Absent Trauma Absent Food Allergy No Current % PO Negligible Minimum of two criteria No physical signs of malnutrition #1 Nutrition Diagnosis Inadequate oral intake Diagnosis Progress(for reassessment Continues documentation) Is patient on ventilator? Yes Is Patient Ambulatory and/or Out of Bed No REE-([facility]-confined to bed) [phone] Calculation Used for Recommendations [facility] Additional Notes Protein: >2 g/kg IBW: >91g Fluid: 1 ml/kcal Nutrition Intervention Change Diet Order: TF Nutrition Support: Promote 1.0 at 60 ml/hr (goal rate) Flush 50ml q4h Kcal 1,440 Protein (gm) 90 Fluid (mL) 1,208 Goal #1 Meet at least 80% of kcal and protein needs via TF Anticipated Discharge Needs: Unable to determine at this time Follow-Up By: 07/14/20 Additional Comments Follow for TF tolerance at goal rate
[2020-07-13] MEDS: MIDAZOLAM 100 MG in SODIUM CHLORIDE 0.9% 80 ML IV SCH (08:29)
[2020-07-13] MEDS: FAMOTIDINE 20 MG TAB PO SCH ×2 (10:59→22:29)
[2020-07-13] MEDS: QUEtiapine 100 MG TAB PO SCH ×2 (10:59→22:34)
[2020-07-13 11:42] LABS: Hematocrit 40.4 % (30.3-42.9); Hemoglobin 12.7 gm/dl (10.1-14.3); Mean Corpuscular HGB Conc 32 % (30-34); Mean Corpuscular Volume 94 fl (79-97); Platelet Count 135 K/mm3 (140-440); Red Cell Distribution Width 17.7 % (13.2-15.2)
[2020-07-13 12:21] LABS: Blood Urea Nitrogen 18 mg/dL (7-17); Calcium 8.8 mg/dL (8.4-10.2); Hemolysis Index 4
[2020-07-13 12:36] LABS: BUN/Creatinine Ratio 60
--- NOTE | 2020-07-13 12:53 | Progress Note ---
Assessment and Plan Hx of Paroxysmal Atrial flutter/afib/MAT not on anticoagulation secondary to history of melena and anemia. 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 She did undergo PCI of the mid LAD using bare metal stent. Altered mental status -reason for admission initial head CT scan showed small 1 cm parenchymal hemorrhage in the left parietal juxtacortical region. Chest CTA negative for PE Respiratory failure negative for COVID 19 COPD on home oxygen Hypothyroidism TSH at 15.1 Recommend: Medical therapy for underlying coronary artery disease and paroxysmal atrial fibrillation when able to tolerate. Subjective Date of service: 07/13/20 Principal diagnosis: Ac and ch hypoxic & hypercapnic resp failure; AE-COPD; Tobacco use disorder Interval history: Patient is alert but remains intubated on mechanical ventilation. Sinus rhythm on telemetry. Objective Vital Signs Temp Pulse Resp BP Pulse Ox 07/13/20 12:20 88 17 94/51 94 07/13/20 12:10 94 H 20 94/51 94 07/13/20 12:00 103 H 20 94/51 93 07/13/20 11:50 102 H 20 114/58 94 07/13/20 11:40 105 H 20 114/58 95 07/13/20 11:37 107 H 114/58 94 07/13/20 11:30 116 H 17 114/58 95 07/13/20 11:20 109 H 19 144/84 94 07/13/20 11:10 120 H 20 144/84 92 07/13/20 11:00 119 H 20 141/92 94 07/13/20 10:50 129 H 20 141/92 93 07/13/20 10:40 123 H 18 141/92 93 07/13/20 10:30 88 20 142/86 95 07/13/20 10:20 107 H 21 142/86 94 07/13/20 10:10 103 H 20 142/86 93 07/13/20 10:00 125 H 19 141/92 93 07/13/20 09:50 121 H 16 142/86 93 07/13/20 09:40 125 H 21 142/86 93 07/13/20 09:30 117 H 19 142/86 95 07/13/20 09:20 119 H 18 141/86 95 07/13/20 09:10 120 H 16 141/86 96 07/13/20 09:00 125 H 21 137/90 94 07/13/20 08:50 112 H 21 137/90 95 07/13/20 08:40 124 H 20 137/90 94 07/13/20 08:30 113 H 16 137/90 94 07/13/20 08:20 100 H 20 99/52 95 07/13/20 08:10 88 17 99/52 96 07/13/20 08:07 59 L 99/52 97 07/13/20 08:05 98.0 F 07/13/20 08:00 61 20 140/82 96 07/13/20 07:50 63 20 140/82 96 07/13/20 07:40 62 20 140/82 95 07/13/20 07:30 93 H 17 140/82 93 07/13/20 07:20 60 20 98/53 97 07/13/20 07:10 60 20 98/53 97 07/13/20 07:00 63 20 123/69 96 07/13/20 06:50 64 20 123/69 96 07/13/20 06:40 68 20 123/69 96 07/13/20 06:30 80 20 123/69 96 07/13/20 06:20 86 20 127/70 96 07/13/20 06:10 95 H 20 127/70 95 07/13/20 06:00 93 H 20 127/70 96 07/13/20 05:50 104 H 20 141/88 95 07/13/20 05:40 113 H 20 141/88 94 07/13/20 05:30 101 H 17 130/70 07/13/20 05:20 112 H 19 141/88 95 07/13/20 05:10 118 H 18 141/88 95 07/13/20 05:00 111 H 20 141/88 95 07/13/20 04:50 119 H 14 136/94 95 07/13/20 04:40 123 H 18 136/94 94 07/13/20 04:30 125 H 16 145/95 95 07/13/20 04:20 119 H 18 145/95 96 07/13/20 04:10 118 H 17 145/95 95 07/13/20 04:00 108 H 16 127/76 94 07/13/20 03:50 102 H 20 127/76 93 07/13/20 03:49 98.8 F 07/13/20 03:40 97 H 20 127/76 90 07/13/20 03:30 59 L 20 97/53 96 07/13/20 03:25 56 L 97/53 96 07/13/20 03:20 54 L 20 97/53 95 07/13/20 03:10 55 L 20 97/53 95 07/13/20 03:00 55 L 20 116/66 95 07/13/20 02:50 59 L 20 116/66 96 07/13/20 02:40 63 20 116/66 97 07/13/20 02:30 66 21 116/66 98 07/13/20 02:20 59 L 20 118/66 98 07/13/20 02:10 59 L 20 118/66 98 07/13/20 02:00 62 20 94/49 98 07/13/20 01:50 56 L 20 94/49 97 07/13/20 01:40 54 L 20 94/49 96 07/13/20 01:30 53 L 20 94/49 96 07/13/20 01:20 55 L 20 91/47 96 07/13/20 01:10 55 L 20 91/47 96 07/13/20 01:00 57 L 20 91/47 97 07/13/20 00:50 59 L 19 94/48 97 07/13/20 00:40 61 20 94/48 98 07/13/20 00:30 63 20 94/48 97 07/13/20 00:20 65 20 93/47 97 07/13/20 00:10 65 20 93/47 97 07/13/20 00:06 64 20 93/47 97 07/13/20 00:00 67 20 93/47 97 07/12/20 23:50 69 20 93/47 97 07/12/20 23:40 72 20 93/47 97 07/12/20 23:30 78 20 93/47 97 07/12/20 23:20 82 20 101/54 98 07/12/20 23:18 81 101/54 98 07/12/20 23:10 91 H 20 101/54 98 07/12/20 23:00 98.2 F 94 H 20 135/73 97 07/12/20 22:50 96 H 20 135/73 97 07/12/20 22:40 125 H 22 127/92 95 07/12/20 22:30 122 H 18 135/73 96 07/12/20 22:20 101 H 19 135/73 95 07/12/20 22:10 104 H 18 135/73 97 07/12/20 22:00 99 H 21 135/73 07/12/20 21:50 101 H 21 131/77 95 07/12/20 21:40 87 20 131/77 96 07/12/20 21:30 116 H 18 150/91 95 07/12/20 21:20 93 H 20 150/91 96 07/12/20 21:10 98 H 20 150/91 95 07/12/20 21:00 131 H 16 144/84 95 07/12/20 20:50 101 H 20 144/84 95 07/12/20 20:40 122 H 18 144/84 94 07/12/20 20:30 117 H 20 144/84 93 07/12/20 20:20 106 H 20 130/76 94 07/12/20 20:10 125 H 18 130/76 93 07/12/20 20:00 108 H 20 130/76 94 07/12/20 19:52 98.4 F 07/12/20 19:50 107 H 20 142/85 94 07/12/20 19:40 125 H 17 142/85 92 07/12/20 19:30 128 H 17 144/93 92 07/12/20 19:20 121 H 21 144/93 92 07/12/20 19:10 128 H 19 144/93 93 07/12/20 19:00 129 H 22 148/85 92 07/12/20 18:50 128 H 21 148/85 92 07/12/20 18:40 130 H 20 148/85 93 07/12/20 18:30 133 H 19 137/100 95 07/12/20 18:20 132 H 22 137/100 95 07/12/20 18:10 118 H 19 137/100 96 07/12/20 18:00 97.9 F 124 H 18 154/98 97 07/12/20 17:50 113 H 21 154/98 95 07/12/20 17:40 140 H 24 154/98 94 07/12/20 17:30 133 H 16 119/63 95 07/12/20 17:20 129 H 18 119/63 95 07/12/20 17:10 97 H 16 119/63 95 07/12/20 17:00 57 L 20 119/63 99 07/12/20 16:50 53 L 21 116/56 98 07/12/20 16:40 53 L 20 109/57 97 07/12/20 16:30 54 L 20 116/56 97 07/12/20 16:22 54 L 116/56 97 07/12/20 16:20 54 L 20 116/56 97 07/12/20 16:10 57 L 20 116/56 97 07/12/20 16:00 60 20 118/59 97 07/12/20 15:50 63 20 118/59 96 07/12/20 15:40 61 20 118/59 97 07/12/20 15:30 62 20 118/59 98 07/12/20 15:20 62 20 109/57 97 07/12/20 15:10 65 21 109/57 96 07/12/20 15:00 61 20 109/57 96 07/12/20 14:50 63 20 114/60 97 07/12/20 14:40 64 20 114/60 96 07/12/20 14:30 60 20 114/60 97 07/12/20 14:20 62 20 112/55 96 07/12/20 14:10 60 20 112/55 96 07/12/20 14:00 58 L 20 113/54 95 07/12/20 13:50 60 20 112/55 95 07/12/20 13:40 60 20 112/55 95 07/12/20 13:30 61 20 112/55 95 07/12/20 13:20 59 L 20 108/52 96 07/12/20 13:10 60 20 108/52 96 07/12/20 13:00 63 20 108/52 95 - Physical Examination General: Other (intubated on the vent) HEENT: Positive: PERRL Cardiac: Positive: Tachycardia Extremities: Absent: edema - Labs and Meds CBC 07/13/20 Range/Units 09:50 WBC 7.2 (4.5-11.0) K/mm3 RBC 4.30 (3.65-5.03) M/mm3 Hgb 12.7 (10.1-14.3) gm/dl Hct 40.4 (30.3-42.9) % Plt Count 135 L (140-440) K/mm3 Comprehensive Metabolic Panel 07/13/20 Range/Units 09:50 Sodium 140 (137-145) mmol/L Potassium 4.0 (3.6-5.0) mmol/L Chloride 102.2 (98-107) mmol/L Carbon Dioxide 33 H (22-30) mmol/L BUN 18 H (7-17) mg/dL Creatinine 0.3 L (0.6-1.2) mg/dL Glucose 157 H (65-100) mg/dL Calcium 8.8 (8.4-10.2) mg/dL - Allied health notes Allied health notes reviewed: RT
--- NOTE | 2020-07-13 13:03 | Progress Note ---
Assessment and Plan Acute and chronic hypoxic and hypercapnic respiratory failure: Acute exacerbation of COPD Tobacco use disorder/Nicotine dependence (on going) Hypernatremia History of coronary artery disease/CHF History of HTN Chronic narcotic dependence Chronic back pain Anxiety disorder History of depression; Obesity; BMI 32.2 - reduce set rate to 12/min - keep peep at 8 for now - continue to wean FiO2 for target O2 sat's > 90% - follow MRI report - continue contact isolation - continue systemic steroids with slow taper - prn Levophed for target MAP >/= 65 mmHg - continue other care as below - complete AB's per ID rec's (Vanc [facility] Cefepime) - continue daily SAT and SBT assessment as tolerated - continue supplemental oxygen with restrictive strategies acutely re: severe COPD (PaO2 of 60 with O2 sats 88-90% is acceptable) - VAP bundle addressed (aspiration precautions; HOB > 40 degrees) - continue bronchodilators with pulmonary hygiene per RT - Avoid benzodiazepine's, reduce the possibility of delirium - Continue with fentanyl, titrate for RASS of 0 to -1 - Maintenance of sleep-wake cycle, avoid delirium - continue enteral nutritional support at goal rate as tolerated - Accuchecks with glycemic control per SSI for target blood glucose of 140-180 mg/dL while critically ill; avoid hypoglycemia - VTE prophylaxis - Stress ulcer prophylaxis - Monitor hemodynamics closely - Avoid delirium; Avoid benzodiazepines - Nicotine withdrawal precautions, nicotine patch - In view of ongoing smoking, recurrent hospital admission, will need to re- address advance directives and goals of care, once the patient is able to be a part of that discussion. Will also address smoking cessation again, once she is able to be a part of that discussion - discharge planning ongoing concurrently - continue other care per attending / other solutions sales consultant's .... re-evaluate in am & prn CONDITION: CRITICAL PROGNOSIS: GUARDED CODE STATUS: FULL CODE The high probability of a clinically significant, sudden or life-threatening deterioration of the respiratory, cardiovascular, neurology, endocrine] system(s) required my full and direct attention, intervention and personal management. The aggregate critical care time was [33] minutes without overlap. Time includes spent on; [x] Data Review and interpretation [x] Patient assessment and monitoring of vital signs [x] Documentation [x] Medication orders and management Subjective Date of service: 07/13/20 Principal diagnosis: Ac and ch hypoxic & hypercapnic resp failure; AE-COPD; T obacco use disorder Interval history: Patient is seen today for: Ac and ch hypoxic hypercapnic resp failure; AE-COPD; Tobacco use disorder/Nicotine dependence; Hypernatremia; HTN (hypotensive at presentation; Chronic narcotic dependence ; Chronic back pain; Anxiety disorder Seen and examined at bedside; 24-hour events reviewed; nursing and respiratory care staff consulted; no adverse overnight events reported to me; laying in bed; remains on MVS; FiO2 down to 40% and peep to 8; to go for MRI shortly; No N/V/F/C Objective Vital Signs - 12hr 07/13/20 07/13/20 07/13/20 01:10 01:20 01:30 Temperature Pulse Rate 55 L 55 L 53 L Respiratory 20 20 20 Rate Blood Pressure 91/47 91/47 94/49 O2 Sat by Pulse 96 96 96 Oximetry 07/13/20 07/13/20 07/13/20 01:40 01:50 02:00 Temperature Pulse Rate 54 L 56 L 62 Respiratory 20 20 20 Rate Blood Pressure 94/49 94/49 94/49 O2 Sat by Pulse 96 97 98 Oximetry 07/13/20 07/13/20 07/13/20 02:10 02:20 02:30 Temperature Pulse Rate 59 L 59 L 66 Respiratory 20 20 21 Rate Blood Pressure 118/66 118/66 116/66 O2 Sat by Pulse 98 98 98 Oximetry 07/13/20 07/13/20 07/13/20 02:40 02:50 03:00 Temperature Pulse Rate 63 59 L 55 L Respiratory 20 20 20 Rate Blood Pressure 116/66 116/66 116/66 O2 Sat by Pulse 97 96 95 Oximetry 07/13/20 07/13/20 07/13/20 03:10 03:20 03:25 Temperature Pulse Rate 55 L 54 L 56 L Respiratory 20 20 Rate Blood Pressure 97/53 97/53 97/53 O2 Sat by Pulse 95 95 96 Oximetry 07/13/20 07/13/20 07/13/20 03:30 03:40 03:49 Temperature 98.8 F Pulse Rate 59 L 97 H Respiratory 20 20 Rate Blood Pressure 97/53 127/76 O2 Sat by Pulse 96 90 Oximetry 07/13/20 07/13/20 07/13/20 03:50 04:00 04:10 Temperature Pulse Rate 102 H 108 H 118 H Respiratory 20 16 17 Rate Blood Pressure 127/76 127/76 145/95 O2 Sat by Pulse 93 94 95 Oximetry 07/13/20 07/13/20 07/13/20 04:20 04:30 04:40 Temperature Pulse Rate 119 H 125 H 123 H Respiratory 18 16 18 Rate Blood Pressure 145/95 145/95 136/94 O2 Sat by Pulse 96 95 94 Oximetry 07/13/20 07/13/20 07/13/20 04:50 05:00 05:10 Temperature Pulse Rate 119 H 111 H 118 H Respiratory 14 20 18 Rate Blood Pressure 136/94 141/88 141/88 O2 Sat by Pulse 95 95 95 Oximetry 07/13/20 07/13/20 07/13/20 05:20 05:30 05:40 Temperature Pulse Rate 112 H 101 H 113 H Respiratory 19 17 20 Rate Blood Pressure 141/88 130/70 141/88 O2 Sat by Pulse 95 94 Oximetry 07/13/20 07/13/20 07/13/20 05:50 06:00 06:10 Temperature Pulse Rate 104 H 93 H 95 H Respiratory 20 20 20 Rate Blood Pressure 141/88 127/70 127/70 O2 Sat by Pulse 95 96 95 Oximetry 07/13/20 07/13/20 07/13/20 06:20 06:30 06:40 Temperature Pulse Rate 86 80 68 Respiratory 20 20 20 Rate Blood Pressure 127/70 123/69 123/69 O2 Sat by Pulse 96 96 96 Oximetry 07/13/20 07/13/20 07/13/20 06:50 07:00 07:10 Temperature Pulse Rate 64 63 60 Respiratory 20 20 20 Rate Blood Pressure 123/69 123/69 98/53 O2 Sat by Pulse 96 96 97 Oximetry 07/13/20 07/13/20 07/13/20 07:20 07:30 07:40 Temperature Pulse Rate 60 93 H 62 Respiratory 20 17 20 Rate Blood Pressure 98/53 140/82 140/82 O2 Sat by Pulse 97 93 95 Oximetry 07/13/20 07/13/20 07/13/20 07:50 08:00 08:05 Temperature 98.0 F Pulse Rate 63 61 Respiratory 20 20 Rate Blood Pressure 140/82 140/82 O2 Sat by Pulse 96 96 Oximetry 07/13/20 07/13/20 07/13/20 08:07 08:10 08:20 Temperature Pulse Rate 59 L 88 100 H Respiratory 17 20 Rate Blood Pressure 99/52 99/52 99/52 O2 Sat by Pulse 97 96 95 Oximetry 07/13/20 07/13/20 07/13/20 08:30 08:40 08:50 Temperature Pulse Rate 113 H 124 H 112 H Respiratory 16 20 21 Rate Blood Pressure 137/90 137/90 137/90 O2 Sat by Pulse 94 94 95 Oximetry 07/13/20 07/13/20 07/13/20 09:00 09:10 09:20 Temperature Pulse Rate 125 H 120 H 119 H Respiratory 21 16 18 Rate Blood Pressure 137/90 141/86 141/86 O2 Sat by Pulse 94 96 95 Oximetry 07/13/20 07/13/20 07/13/20 09:30 09:40 09:50 Temperature Pulse Rate 117 H 125 H 121 H Respiratory 19 21 16 Rate Blood Pressure 142/86 142/86 142/86 O2 Sat by Pulse 95 93 93 Oximetry 07/13/20 07/13/20 07/13/20 10:00 10:10 10:20 Temperature Pulse Rate 125 H 103 H 107 H Respiratory 19 20 21 Rate Blood Pressure 141/92 142/86 142/86 O2 Sat by Pulse 93 93 94 Oximetry 07/13/20 07/13/20 07/13/20 10:30 10:40 10:50 Temperature Pulse Rate 88 123 H 129 H Respiratory 20 18 20 Rate Blood Pressure 142/86 141/92 141/92 O2 Sat by Pulse 95 93 93 Oximetry 07/13/20 07/13/20 07/13/20 11:00 11:10 11:20 Temperature Pulse Rate 119 H 120 H 109 H Respiratory 20 20 19 Rate Blood Pressure 141/92 144/84 144/84 O2 Sat by Pulse 94 92 94 Oximetry 07/13/20 07/13/20 07/13/20 11:30 11:37 11:40 Temperature Pulse Rate 116 H 107 H 105 H Respiratory 17 20 Rate Blood Pressure 114/58 114/58 114/58 O2 Sat by Pulse 95 94 95 Oximetry 07/13/20 07/13/20 07/13/20 11:50 12:00 12:10 Temperature Pulse Rate 102 H 103 H 94 H Respiratory 20 20 20 Rate Blood Pressure 114/58 94/51 94/51 O2 Sat by Pulse 94 93 94 Oximetry 07/13/20 12:20 Temperature Pulse Rate 88 Respiratory 17 Rate Blood Pressure 94/51 O2 Sat by Pulse 94 Oximetry Constitutional: no acute distress, other (elderly obese female with mildly increased respiratory effort at rest on MVS) Eyes: non-icteric ENT: oropharynx moist, other (ETT 23 cm THUY) Neck: supple Effort: mildly labored Ascultation: Bilateral: diminished breath sounds, rhonchi (scant) Percussion: Bilateral: not dull Cardiovascular: regular rate and rhythm, other (sinus tach) Gastrointestinal: normoactive bowel sounds, soft, non-tender, non-distended (protuberant) Integumentary: rash Extremities: no cyanosis, pink and warm, no ischemia or petechiae, edema Neurologic: non-focal exam (grossly), pupils equal and round, other (awake) Psychiatric: other (sedated) CBC and BMP: 07/13/20 09:50 07/13/20 09:50 ABG, PT/INR, D-dimer: ABG ABG pH 7.462 (7.320-7.450) H 07/13/20 03:33 POC ABG pCO2 39.0 mmHg (32.0-48.0) 07/13/20 03:33 ABG pCO2 46.7 mm Hg 07/08/20 03:20 POC ABG pO2 69.1 mmHg (83-108) L 07/13/20 03:33 ABG pO2 85.5 mm Hg (80.0-90.0) 07/08/20 03:20 POC ABG HCO3 27.2 07/13/20 03:33 ABG O2 Saturation 96.8 % (95.0-99.0) 07/08/20 03:20 PT/INR, D-dimer PT 14.5 Sec. (12.2-14.9) 07/07/20 05:15 INR 1.12 (0.87-1.13) 07/07/20 05:15 D-Dimer 1298.20 ng/mlDDU (0-234) H 07/05/20 23:06 Abnormal lab findings: Abnormal Labs 07/05/20 07/05/20 07/05/20 22:55 23:06 23:06 Hct MCV RDW Plt Count Lymph % (Auto) Woodson % (Auto) Lymph # (Auto) Woodson # (Auto) Seg Neutrophils % Seg Neuts % (Manual) Nucleated RBC % Seg Neutrophils # PT 15.2 H INR 1.18 H D-Dimer 1298.20 H ABG pH POC ABG pCO2 POC ABG pO2 ABG pO2 227.3 H ABG HCO3 31.3 H ABG O2 Saturation 99.3 H ABG Base Excess 5.8 H ABG Hemoglobin ABG Sodium ABG Glucose Oxyhemoglobin Potassium Chloride Carbon Dioxide BUN 31 H Creatinine Glucose POC Glucose Calcium 7.7 L Lactate Dehydrogenase 217 H Troponin T 0.032 H C-Reactive Protein 1.60 H NT-Pro-B Natriuret Pep Total Protein 5.2 L Albumin 2.6 L LDL Cholesterol Direct 43 L TSH Arterial Blood Glucose Arterial Blood Ionized Calcium Salicylates Acetaminophen 07/05/20 07/05/20 07/05/20 23:06 23:06 23:06 Hct MCV RDW Plt Count Lymph % (Auto) Woodson % (Auto) Lymph # (Auto) Woodson # (Auto) Seg Neutrophils % Seg Neuts % (Manual) Nucleated RBC % Seg Neutrophils # PT INR D-Dimer ABG pH POC ABG pCO2 POC ABG pO2 ABG pO2 ABG HCO3 ABG O2 Saturation ABG Base Excess ABG Hemoglobin ABG Sodium ABG Glucose Oxyhemoglobin Potassium Chloride Carbon Dioxide BUN Creatinine Glucose POC Glucose Calcium Lactate Dehydrogenase Troponin T C-Reactive Protein NT-Pro-B Natriuret Pep Total Protein Albumin LDL Cholesterol Direct TSH 15.130 H Arterial Blood Glucose Arterial Blood Ionized Calcium Salicylates < 0.3 L Acetaminophen < 5.0 L 07/05/20 07/05/20 07/06/20 23:06 23:42 06:58 Hct MCV 98 H RDW 19.8 H Plt Count Lymph % (Auto) Woodson % (Auto) 15.9 H Lymph # (Auto) 0.9 L Woodson # (Auto) 1.0 H Seg Neutrophils % Seg Neuts % (Manual) Nucleated RBC % Seg Neutrophils # PT INR D-Dimer ABG pH 7.533 H POC ABG pCO2 20.7 L POC ABG pO2 ABG pO2 ABG HCO3 ABG O2 Saturation ABG Base Excess ABG Hemoglobin 7.6 L ABG Sodium 132.3 L ABG Glucose 55 L Oxyhemoglobin Potassium Chloride Carbon Dioxide BUN Creatinine Glucose POC Glucose Calcium Lactate Dehydrogenase 217 H Troponin T C-Reactive Protein 1.60 H NT-Pro-B Natriuret Pep Total Protein Albumin LDL Cholesterol Direct TSH Arterial Blood Glucose 55 L Arterial Blood Ionized Calcium 4.3 L Salicylates Acetaminophen 07/06/20 07/06/20 07/06/20 11:09 11:09 17:46 Hct 43.0 H MCV 100 H RDW 20.8 H Plt Count Lymph % (Auto) 7.2 L Woodson % (Auto) 11.4 H Lymph # (Auto) 0.7 L Woodson # (Auto) 1.1 H Seg Neutrophils % 81.3 H Seg Neuts % (Manual) Nucleated RBC % Seg Neutrophils # 7.9 H PT INR D-Dimer ABG pH POC ABG pCO2 POC ABG pO2 ABG pO2 ABG HCO3 ABG O2 Saturation ABG Base Excess ABG Hemoglobin ABG Sodium ABG Glucose Oxyhemoglobin Potassium Chloride Carbon Dioxide BUN Creatinine Glucose POC Glucose 43 L Calcium Lactate Dehydrogenase Troponin T C-Reactive Protein NT-Pro-B Natriuret Pep 94316 H Total Protein Albumin LDL Cholesterol Direct TSH Arterial Blood Glucose Arterial Blood Ionized Calcium Salicylates Acetaminophen 07/06/20 07/06/20 07/07/20 19:31 Unknown 04:55 Hct MCV RDW Plt Count Lymph % (Auto) Woodson % (Auto) Lymph # (Auto) Woodson # (Auto) Seg Neutrophils % Seg Neuts % (Manual) Nucleated RBC % Seg Neutrophils # PT INR D-Dimer ABG pH POC ABG pCO2 POC ABG pO2 ABG pO2 70.8 L ABG HCO3 28.9 H ABG O2 Saturation 94.5 L ABG Base Excess 3.3 H ABG Hemoglobin 11.6 L ABG Sodium ABG Glucose Oxyhemoglobin 92.7 L Potassium 3.5 L Chloride 110.4 H Carbon Dioxide BUN 19 H Creatinine 0.4 L Glucose 101 H POC Glucose < 40 L Calcium 7.2 L Lactate Dehydrogenase Troponin T C-Reactive Protein NT-Pro-B Natriuret Pep Total Protein 4.4 L Albumin 2.2 L LDL Cholesterol Direct TSH Arterial Blood Glucose Arterial Blood Ionized Calcium Salicylates Acetaminophen 07/07/20 07/07/20 07/08/20 05:15 05:15 03:20 Hct MCV 98 H RDW 19.9 H Plt Count Lymph % (Auto) Woodson % (Auto) Lymph # (Auto) Woodson # (Auto) Seg Neutrophils % Seg Neuts % (Manual) 76.0 H Nucleated RBC % 1.0 H Seg Neutrophils # PT INR D-Dimer ABG pH POC ABG pCO2 POC ABG pO2 ABG pO2 ABG HCO3 29.1 H ABG O2 Saturation ABG Base Excess 3.8 H ABG Hemoglobin ABG Sodium ABG Glucose Oxyhemoglobin Potassium Chloride Carbon Dioxide BUN Creatinine 0.5 L Glucose POC Glucose Calcium 7.6 L Lactate Dehydrogenase Troponin T C-Reactive Protein NT-Pro-B Natriuret Pep Total Protein Albumin LDL Cholesterol Direct TSH Arterial Blood Glucose Arterial Blood Ionized Calcium Salicylates Acetaminophen 07/08/20 07/09/20 07/09/20 07:31 00:02 04:05 Hct MCV RDW Plt Count Lymph % (Auto) Woodson % (Auto) Lymph # (Auto) Woodson # (Auto) Seg Neutrophils % Seg Neuts % (Manual) Nucleated RBC % Seg Neutrophils # PT INR D-Dimer ABG pH POC ABG pCO2 POC ABG pO2 63.4 L ABG pO2 ABG HCO3 ABG O2 Saturation ABG Base Excess ABG Hemoglobin 11.8 L ABG Sodium 134.1 L ABG Glucose 137 H Oxyhemoglobin Potassium Chloride 108.6 H Carbon Dioxide BUN Creatinine 0.3 L Glucose 177 H POC Glucose 118 H Calcium 7.7 L Lactate Dehydrogenase Troponin T C-Reactive Protein NT-Pro-B Natriuret Pep Total Protein Albumin LDL Cholesterol Direct TSH Arterial Blood Glucose 137 H Arterial Blood Ionized Calcium Salicylates Acetaminophen 07/09/20 07/09/20 07/09/20 05:10 12:38 17:31 Hct MCV RDW Plt Count Lymph % (Auto) Woodson % (Auto) Lymph # (Auto) Woodson # (Auto) Seg Neutrophils % Seg Neuts % (Manual) Nucleated RBC % Seg Neutrophils # PT INR D-Dimer ABG pH POC ABG pCO2 POC ABG pO2 ABG pO2 ABG HCO3 ABG O2 Saturation ABG Base Excess ABG Hemoglobin ABG Sodium ABG Glucose Oxyhemoglobin Potassium Chloride Carbon Dioxide BUN Creatinine Glucose POC Glucose 132 H 106 H 120 H Calcium Lactate Dehydrogenase Troponin T C-Reactive Protein NT-Pro-B Natriuret Pep Total Protein Albumin LDL Cholesterol Direct TSH Arterial Blood Glucose Arterial Blood Ionized Calcium Salicylates Acetaminophen 07/10/20 07/10/20 07/10/20 00:27 04:15 05:25 Hct MCV RDW Plt Count Lymph % (Auto) Woodson % (Auto) Lymph # (Auto) Woodson # (Auto) Seg Neutrophils % Seg Neuts % (Manual) Nucleated RBC % Seg Neutrophils # PT INR D-Dimer ABG pH POC ABG pCO2 POC ABG pO2 60.7 L ABG pO2 ABG HCO3 ABG O2 Saturation ABG Base Excess ABG Hemoglobin ABG Sodium ABG Glucose 149 H Oxyhemoglobin Potassium Chloride Carbon Dioxide BUN Creatinine Glucose POC Glucose 129 H 127 H Calcium Lactate Dehydrogenase Troponin T C-Reactive Protein NT-Pro-B Natriuret Pep Total Protein Albumin LDL Cholesterol Direct TSH Arterial Blood Glucose 149 H Arterial Blood Ionized Calcium Salicylates Acetaminophen 07/10/20 07/10/20 07/11/20 12:08 16:57 00:04 Hct MCV RDW Plt Count Lymph % (Auto) Woodson % (Auto) Lymph # (Auto) Woodson # (Auto) Seg Neutrophils % Seg Neuts % (Manual) Nucleated RBC % Seg Neutrophils # PT INR D-Dimer ABG pH POC ABG pCO2 POC ABG pO2 ABG pO2 ABG HCO3 ABG O2 Saturation ABG Base Excess ABG Hemoglobin ABG Sodium ABG Glucose Oxyhemoglobin Potassium Chloride Carbon Dioxide BUN Creatinine Glucose POC Glucose 129 H 152 H 127 H Calcium Lactate Dehydrogenase Troponin T C-Reactive Protein NT-Pro-B Natriuret Pep Total Protein Albumin LDL Cholesterol Direct TSH Arterial Blood Glucose Arterial Blood Ionized Calcium Salicylates Acetaminophen 07/11/20 07/11/20 07/11/20 04:56 05:29 11:47 Hct MCV RDW Plt Count Lymph % (Auto) Woodson % (Auto) Lymph # (Auto) Woodson # (Auto) Seg Neutrophils % Seg Neuts % (Manual) Nucleated RBC % Seg Neutrophils # PT INR D-Dimer ABG pH POC ABG pCO2 48.8 H POC ABG pO2 ABG pO2 ABG HCO3 ABG O2 Saturation ABG Base Excess ABG Hemoglobin ABG Sodium ABG Glucose 153 H Oxyhemoglobin Potassium Chloride Carbon Dioxide BUN Creatinine Glucose POC Glucose 127 H 155 H Calcium Lactate Dehydrogenase Troponin T C-Reactive Protein NT-Pro-B Natriuret Pep Total Protein Albumin LDL Cholesterol Direct TSH Arterial Blood Glucose 153 H Arterial Blood Ionized Calcium Salicylates Acetaminophen 07/11/20 07/12/20 07/12/20 17:12 03:18 17:42 Hct MCV RDW Plt Count Lymph % (Auto) Woodson % (Auto) Lymph # (Auto) Woodson # (Auto) Seg Neutrophils % Seg Neuts % (Manual) Nucleated RBC % Seg Neutrophils # PT INR D-Dimer ABG pH POC ABG pCO2 POC ABG pO2 71.4 L ABG pO2 ABG HCO3 ABG O2 Saturation ABG Base Excess ABG Hemoglobin ABG Sodium ABG Glucose 99 H Oxyhemoglobin Potassium Chloride Carbon Dioxide BUN Creatinine Glucose POC Glucose 118 H 112 H Calcium Lactate Dehydrogenase Troponin T C-Reactive Protein NT-Pro-B Natriuret Pep Total Protein Albumin LDL Cholesterol Direct TSH Arterial Blood Glucose 99 H Arterial Blood Ionized Calcium Salicylates Acetaminophen 07/13/20 07/13/20 07/13/20 03:33 09:50 09:50 Hct MCV RDW 17.7 H Plt Count 135 L Lymph % (Auto) Woodson % (Auto) Lymph # (Auto) Woodson # (Auto) Seg Neutrophils % Seg Neuts % (Manual) Nucleated RBC % Seg Neutrophils # PT INR D-Dimer ABG pH 7.462 H POC ABG pCO2 POC ABG pO2 69.1 L ABG pO2 ABG HCO3 ABG O2 Saturation ABG Base Excess ABG Hemoglobin ABG Sodium ABG Glucose 125 H Oxyhemoglobin Potassium Chloride Carbon Dioxide 33 H BUN 18 H Creatinine 0.3 L Glucose 157 H POC Glucose Calcium Lactate Dehydrogenase Troponin T C-Reactive Protein NT-Pro-B Natriuret Pep Total Protein Albumin LDL Cholesterol Direct TSH Arterial Blood Glucose 125 H Arterial Blood Ionized Calcium Salicylates Acetaminophen 07/13/20 11:52 Hct MCV RDW Plt Count Lymph % (Auto) Woodson % (Auto) Lymph # (Auto) Woodson # (Auto) Seg Neutrophils % Seg Neuts % (Manual) Nucleated RBC % Seg Neutrophils # PT INR D-Dimer ABG pH POC ABG pCO2 POC ABG pO2 ABG pO2 ABG HCO3 ABG O2 Saturation ABG Base Excess ABG Hemoglobin ABG Sodium ABG Glucose Oxyhemoglobin Potassium Chloride Carbon Dioxide BUN Creatinine Glucose POC Glucose 139 H Calcium Lactate Dehydrogenase Troponin T C-Reactive Protein NT-Pro-B Natriuret Pep Total Protein Albumin LDL Cholesterol Direct TSH Arterial Blood Glucose Arterial Blood Ionized Calcium Salicylates Acetaminophen Chest x-ray: pending Allied health notes reviewed: RT
[2020-07-13 13:05] LABS: Basophils % (Manual) 0 % (0.0-1.8); Eosinophils % (Manual) 0 % (0.0-4.3); Total Cells Counted 100
[2020-07-13 13:07] LABS: Platelet Estimate Consistent w Auto; RBC Morphology Normal
--- NOTE | 2020-07-13 15:50 | Magnetic Resonance Report ---
MR brain wo con INDICATION / CLINICAL INFORMATION: 59 years Female; AMS /brain hemorrhage. TECHNIQUE: Multiplanar, multisequence MR images of the brain were obtained. COMPARISON: The study is compared to the previous CT of 07/06/2020. FINDINGS: BRAIN / INTRACRANIAL CONTENTS: There is a 6 to 7 mm focus of increased T1 weighted signal along the p osterior left frontal lobe involving the subcortical region which correlates with the earlier CT and most consistent with subacute hemorrhage. A smaller focus is seen along the high right precentral gyr us . There is milder surrounding edema within these regions without significant mass effect at. The miguel ángel on degrades the image quality. However, there is no further evidence of blood products. The above findings result in susceptibility artifact on the diffusion-weighted imaging. Otherwise, th ere is no evidence of acute infarction. There is moderate to cerebral white matter disease on the FLA IR sequences most consistent with chronic microvascular angiopathy. Is mild cerebral atrophy with ass ociated mild prominence of the ventricular system. CRANIOCERVICAL JUNCTION: No significant abnormality. VASCULAR FLOW-VOIDS: No significant abnormality. ORBITS: No significant abnormality of visualized orbits. SINUSES / MASTOIDS: There is mild mucosal thickening within the sphenoid and left maxillary sinuses w ith air-fluid levels at. There is also minimal mucosal thickening within the ethmoid air cells. Focal opacification is seen within the left frontal sinus. There is extensive effusions within the mastoid air cells. The findings would appear to be related to intubation. ADDITIONAL FINDINGS: None. IMPRESSION: 1. The findings correlate with the earlier CT of 07/06/2020 demonstrating small foci of subacute bloo d involving posterior frontal lobes as detailed above. 2. The study is limited by motion. However, there is otherwise moderate chronic microvascular angiopa thy. Signer Name: Buddy Leach MD Signed: 07/13/2020 3:46 PM Workstation Name: [email or web address]
--- NOTE | 2020-07-13 16:36 | Progress Note ---
Assessment and Plan Cultures: Coronavirus PCR: negative 07/05/2020 blood culture: no growth thus far 07/05/2020 tracheal aspirate culture: Usual respiratory neelima 07/05/2020 urine culture: Mixed growth A/P: 59-year-old female [facility] resident with history of CHF, COPD, gastroesophageal reflux disease, CKD, history of back surgery with spinal hardware was admitted to the hospital 07/05/2020 with altered mental status: #Shock: Unclear etiology, septic shock seems less likely. Continue empiric antibiotics. No clear infectious source identified on imaging. Remains afebrile and without leucocytosis. #Acute hypoxic respiratory failure: Pneumonia v/s pulmonary edema. BNP is elevated. Procalcitonin is low. No fever or leukocytosis. ?Aspiration pneumonitis. #Acute encephalopathy, small parenchymal hemorrhage: seen by neurosurgery. Recs: Monitor off antibiotics. Infectious disease will sign off, please call with questions. Patricio Gutierrez MD [facility] ([facility]) O: [phone] F: [phone] Subjective Date of service: 07/13/20 Principal diagnosis: Ac and ch hypoxic & hypercapnic resp failure; AE-COPD; Tobacco use disorder Interval history: Afebrile, normal white count. Imaging personally reviewed: Brain MRI: Small foci of subacute blood, moderate chronic microvascular angiopathy Objective - Exam Narrative Exam: Constitutional: more awake, intubated, on the vent Head, Ears, Nose: Normocephalic, atraumatic. External ears, nose normal Eyes: Conjunctivae/corneas clear. No icterus. No ptosis. Neck: intubated Oral: intubated Cardiovascular: S1, S2 + Respiratory: AE fair bilaterally and equal GI: Soft, bowel sounds + Musculoskeletal: No pedal edema, no cyanosis. Skin: No rash or abscess Hem/Lymphatic: No palpable cervical or supraclavicular nodes. No lymphangitis Psych: restless Neurological: more awake, restless, intubated, on the vent, exam limited - Constitutional Vitals: Vital Signs Temp Pulse Resp BP Pulse Ox 99 F 122 H 11 L 140/90 90 07/13/20 14:00 07/13/20 16:26 07/13/20 15:00 07/13/20 16:26 07/13/20 16:26 Temperature -Last 24 Hours Temperature 99 F Temperature 98.0 F Temperature 98.8 F Temperature 98.2 F Temperature 98.4 F Temperature 97.9 F - Labs CBC & Chem 7: 07/13/20 09:50 07/13/20 09:50 Labs: Abnormal lab results 07/12/20 07/13/20 07/13/20 Range/Units 17:42 03:33 09:50 RDW 17.7 H (13.2-15.2) % Plt Count 135 L (140-440) K/mm3 Seg Neuts % (Manual) 96.0 H (40.0-70.0) % Lymphocytes % (Manual) 3.0 L (13.4-35.0) % Lymphocytes # (Manual) 0.2 L (1.2-5.4) K/mm3 ABG pH 7.462 H (7.320-7.450) POC ABG pO2 69.1 L (83-108) mmHg ABG Glucose 125 H (65-95) mg/dL Carbon Dioxide (22-30) mmol/L BUN (7-17) mg/dL Creatinine (0.6-1.2) mg/dL Glucose (65-100) mg/dL POC Glucose 112 H (70-105) mg/dL Arterial Blood Glucose 125 H (65-95) mg/dL 07/13/20 07/13/20 Range/Units 09:50 11:52 RDW (13.2-15.2) % Plt Count (140-440) K/mm3 Seg Neuts % (Manual) (40.0-70.0) % Lymphocytes % (Manual) (13.4-35.0) % Lymphocytes # (Manual) (1.2-5.4) K/mm3 ABG pH (7.320-7.450) POC ABG pO2 (83-108) mmHg ABG Glucose (65-95) mg/dL Carbon Dioxide 33 H (22-30) mmol/L BUN 18 H (7-17) mg/dL Creatinine 0.3 L (0.6-1.2) mg/dL Glucose 157 H (65-100) mg/dL POC Glucose 139 H (70-105) mg/dL Arterial Blood Glucose (65-95) mg/dL
[2020-07-14 04:50] LABS: ABG Base Excess 6.6 mmol/L (-2.0-3.0); ABG HCO3 31.8 mmol/L (20.0-26.0); ABG Methemoglobin 0.4 % (0.0-1.5); ABG Oxygen Saturation 94.8 % (95.0-99.0); ABG PCO2 48.5 mm Hg; ABG PH 7.434 pH Units (7.350-7.450); ABG PO2 69.1 mm Hg (80.0-90.0)
[2020-07-14] MEDS: methylPREDNISolone Sod Succinate 125 MG/2 ML INJ IV SCH ×3 (07:19→21:08)
--- NOTE | 2020-07-14 08:01 | Progress Note ---
Assessment and Plan Assessment and plan: Patient is a 59-year-old female who presents to the emergency room from a local half-way today with changes in mental status and generalized weakness. Most of the history was gotten from the emergency room staff as patient is unable to give any history at this time. Patient is currently intubated. Patient was brought to the emergency room by EMS and was initially on nonrebreather, she was hypoxic, blood pressure systolic was in the 80s and 90s and was unable to protect her airway and therefore subsequently intubated. Work-up in the emergency room today, chest x-ray did not reveal any significant abnormality. Labs shows elevated troponin. CTA of the chest reveals:1. No CT evidence for pulmonary embolism. 2. Bibasilar consolidation with associated tiny bilateral pleural effusions that could be due to pneumonia, aspiration, or atelectasis. 3. Additional diffuse interlobular septal thickening suggest a component of interstitial pulmonary edema. CT scan of the head reveals: Small 1 cm parenchymal hemorrhage in the left parietal juxtacortical region. Patient has been placed on empiric IV antibiotics for possible underlying pneumonia versus Covid. Neurosurgeon has also been consulted for evaluation of the findings on CT scan of the head. Acute and chronic hypoxic and hypercapnic respiratory failure Acute metabolic encephalopathy Intracranial hemorrhage incidental finding: No intervention at this time Right ICA stenosis: No intervention at this time Acute exacerbation of COPD Tobacco use disorder/Nicotine dependence (on going) Hypernatremia History of coronary artery disease/CHF History of HTN Chronic narcotic dependence Chronic back pain Anxiety disorder History of depression; Obesity; BMI 32.2 Suspected 2019 novel coronavirus: Tested negative 07/07/2020; patient was evaluated by ID and IV antibiotics discontinued. Pulmonary critical care is following. Neurosurgeon consulted in the emergency department and will follow the patient. Patient is still intubated and sedated and on mechanical ventilation, patient is still in the ED and will be transferred to ICU. Patient had episode of hypoglycemia yesterday and was treated according to hypoglycemia protocol. Patient was evaluated by cardiology for history paroxysmal A. fib and patient is not a candidate for anticoagulation because of anemia. 07/07/2020; patient has hypotension yesterday and requiring pressors and that evaluated and started her on IV cefepime and vancomycin. Patient has been fo llowed with Dr Valles and Dr. marx before. 07/09/2020; patient has hypertension and on pressors, on IV cefepime and vancomycin. Patient was seen by neurosurgery and recommend MRI once patient is stable. No neurosurgical intervention is needed. 07/10/2020: patient is pressors, on IV cefepime day 3/5. Patient was seen by neurosurgery and recommend MRI once patient is stable. No neurosurgical in tervention is needed. Pulmonary is following for vent management. 07/11/2020; patient is off pressors, on IV cefepime day 3/5. Patient was seen by neurosurgery and recommend MRI once patient is stable. No neurosurgical intervention is needed. Pulmonary is following for vent management. 07/12: No clinically changes, continue with current management,. remains on sedation, awaiting MRI. Patient remains a full code. 07/13: No new changes, will repeat Labs, wean vent as tolerated. Attempt to re ach family 07/14: Patient remains unresponsive. Continue to await MR brain. Continue weaning from the ventilator. ID has discontinued abx and signed off. Wean sedatives. No seizure epsidoe reported. The high probability of a clinically significant, sudden or life threatening deterioration of the [respiratory, neurology] system(s) required my full and direct attention, intervention and personal management. The aggregate critical care time was [35] minutes. This time is in addition to time spent performing reported procedures but includes the following: [x] Data Review and interpretation [x] Patient assessment and monitoring of vital signs [x] Documentation [x] Medication orders and management History Interval history: Patient seen and examined remains on full ventilatory support, NO NEW CHANGES NOTED Hospitalist Physical - Physical exam Narrative exam: VITAL SIGNS: Reviewed. GENERAL: The patient appears normally developed, on full ventilatory support vital signs as documented. HEAD: No signs of head trauma. EYES: Pupils are equal. Extraocular motions intact. EARS: UNABLE TO EXAMIN HEARING MOUTH: ETT inplace NECK: No adenopathy, no JVD. CHEST: Chest with clear breath sounds bilaterally. No wheezes, rales, or rhonchi. CARDIAC: Regular rate and rhythm. S1 and S2, without murmurs, gallops, or rubs. VASCULAR: No Edema. Peripheral pulses normal and equal in all extremities. ABDOMEN: Soft, non tender and non distended. No rebound or guarding, and no masses palpated. Bowel Sounds normal. MUSCULOSKELETAL: Extremities without clubbing, cyanosis or edema. NEUROLOGIC EXAM: Sedated PSYCHIATRIC: Sedated SKIN: detail exam as documented in skin assessment intubated and sedated - Constitutional Vitals: Temp Pulse Resp BP Pulse Ox 98.7 F 68 13 103/54 94 07/14/20 04:00 07/14/20 07:15 07/14/20 07:15 07/14/20 07:15 07/14/20 07:15 General appearance: Present: other (intubated on the vent) HEART Score - HEART Score Troponin: Troponin T 0.032 ng/mL (0.00-0.029) H 07/05/20 23:06 Results - Labs CBC & Chem 7: 07/13/20 09:50 07/13/20 09:50 Labs: Laboratory Last Values WBC 7.2 K/mm3 (4.5-11.0) 07/13/20 09:50 RBC 4.30 M/mm3 (3.65-5.03) 07/13/20 09:50 Hgb 12.7 gm/dl (10.1-14.3) 07/13/20 09:50 Hct 40.4 % (30.3-42.9) 07/13/20 09:50 MCV 94 fl (79-97) 07/13/20 09:50 MCH 30 pg (28-32) 07/13/20 09:50 MCHC 32 % (30-34) 07/13/20 09:50 RDW 17.7 % (13.2-15.2) H 07/13/20 09:50 Plt Count 135 K/mm3 (140-440) L 07/13/20 09:50 Lymph % (Auto) 7.2 % (13.4-35.0) L 07/06/20 11:09 Larue % (Auto) Real Estate Lawyer 07/07/20 05:15 Eos % (Auto) 0.0 % (0.0-4.3) 07/06/20 11:09 Baso % (Auto) 0.1 % (0.0-1.8) 07/06/20 11:09 Lymph # (Auto) 0.7 K/mm3 (1.2-5.4) L 07/06/20 11:09 Larue # (Auto) 1.1 K/mm3 (0.0-0.8) H 07/06/20 11:09 Eos # (Auto) 0.0 K/mm3 (0.0-0.4) 07/06/20 11:09 Baso # (Auto) 0.0 K/mm3 (0.0-0.1) 07/06/20 11:09 Add Manual Diff Complete 07/13/20 09:50 Total Counted 100 07/13/20 09:50 Seg Neutrophils % Real Estate Lawyer 07/13/20 09:50 Seg Neuts % (Manual) 96.0 % (40.0-70.0) H 07/13/20 09:50 Band Neutrophils % 0 % 07/13/20 09:50 Lymphocytes % (Manual) 3.0 % (13.4-35.0) L 07/13/20 09:50 Reactive Lymphs % (Man) 0 % 07/13/20 09:50 Monocytes % (Manual) 1.0 % (0.0-7.3) 07/13/20 09:50 Eosinophils % (Manual) 0 % (0.0-4.3) 07/13/20 09:50 Basophils % (Manual) 0 % (0.0-1.8) 07/13/20 09:50 Metamyelocytes % 0 % 07/13/20 09:50 Myelocytes % 0 % 07/13/20 09:50 Promyelocytes % 0 % 07/13/20 09:50 Blast Cells % 0 % 07/13/20 09:50 Nucleated RBC % Not Reportable 07/13/20 09:50 Seg Neutrophils # 7.9 K/mm3 (1.8-7.7) H 07/06/20 11:09 Seg Neutrophils # Man 6.9 K/mm3 (1.8-7.7) 07/13/20 09:50 Band Neutrophils # 0.0 K/mm3 07/13/20 09:50 Lymphocytes # (Manual) 0.2 K/mm3 (1.2-5.4) L 07/13/20 09:50 Abs React Lymphs (Man) 0.0 K/mm3 07/13/20 09:50 Monocytes # (Manual) 0.1 K/mm3 (0.0-0.8) 07/13/20 09:50 Eosinophils # (Manual) 0.0 K/mm3 (0.0-0.4) 07/13/20 09:50 Basophils # (Manual) 0.0 K/mm3 (0.0-0.1) 07/13/20 09:50 Metamyelocytes # 0.0 K/mm3 07/13/20 09:50 Myelocytes # 0.0 K/mm3 07/13/20 09:50 Promyelocytes # 0.0 K/mm3 07/13/20 09:50 Blast Cells # 0.0 K/mm3 07/13/20 09:50 WBC Morphology Not Reportable 07/13/20 09:50 Hypersegmented Neuts Not Reportable 07/13/20 09:50 Hyposegmented Neuts Not Reportable 07/13/20 09:50 Hypogranular Neuts Not Reportable 07/13/20 09:50 Smudge Cells Not Reportable 07/13/20 09:50 Toxic Granulation Not Reportable 07/13/20 09:50 Toxic Vacuolation Not Reportable 07/13/20 09:50 Dohle Bodies Not Reportable 07/13/20 09:50 Pelger-Huet Anomaly Not Reportable 07/13/20 09:50 Marissa Rods Not Reportable 07/13/20 09:50 Platelet Estimate Consistent w auto 07/13/20 09:50 Clumped Platelets Not Reportable 07/13/20 09:50 Plt Clumps, EDTA Not Reportable 07/13/20 09:50 Large Platelets Not Reportable 07/13/20 09:50 Giant Platelets Not Reportable 07/13/20 09:50 Platelet Satelliting Not Reportable 07/13/20 09:50 Plt Morphology Comment Not Reportable 07/13/20 09:50 RBC Morphology Normal 07/13/20 09:50 Dimorphic RBCs Not Reportable 07/13/20 09:50 Polychromasia Not Reportable 07/13/20 09:50 Hypochromasia Not Reportable 07/13/20 09:50 Poikilocytosis Not Reportable 07/13/20 09:50 Anisocytosis Not Reportable 07/13/20 09:50 Microcytosis Not Reportable 07/13/20 09:50 Macrocytosis Not Reportable 07/13/20 09:50 Spherocytes Not Reportable 07/13/20 09:50 Pappenheimer Bodies Not Reportable 07/13/20 09:50 Sickle Cells Not Reportable 07/13/20 09:50 Target Cells Not Reportable 07/13/20 09:50 Tear Drop Cells Not Reportable 07/13/20 09:50 Ovalocytes Not Reportable 07/13/20 09:50 Helmet Cells Not Reportable 07/13/20 09:50 [place] Bodies Not Reportable 07/13/20 09:50 [place] Rings Not Reportable 07/13/20 09:50 Demi Cells Not Reportable 07/13/20 09:50 Bite Cells Not Reportable 07/13/20 09:50 Crenated Cell Not Reportable 07/13/20 09:50 Elliptocytes Not Reportable 07/13/20 09:50 Acanthocytes (Spur) Not Reportable 07/13/20 09:50 Rouleaux Not Reportable 07/13/20 09:50 Hemoglobin C Crystals Not Reportable 07/13/20 09:50 Schistocytes Not Reportable 07/13/20 09:50 Malaria parasites Not Reportable 07/13/20 09:50 Ab Bodies Not Reportable 07/13/20 09:50 Hem Pathologist Commnt No 07/13/20 09:50 PT 14.5 Sec. (12.2-14.9) 07/07/20 05:15 INR 1.12 (0.87-1.13) 07/07/20 05:15 APTT 30.8 Sec. (24.2-36.6) 07/05/20 23:06 D-Dimer 1298.20 ng/mlDDU (0-234) H 07/05/20 23:06 ABG pH 7.434 pH Units (7.350-7.450) 07/14/20 04:05 POC ABG pCO2 50.3 mmHg (32.0-48.0) H 07/13/20 22:00 ABG pCO2 48.5 mm Hg 07/14/20 04:05 POC ABG pO2 69.1 mmHg (83-108) L 07/13/20 03:33 ABG pO2 69.1 mm Hg (80.0-90.0) L 07/14/20 04:05 POC ABG HCO3 29.0 07/13/20 22:00 ABG HCO3 31.8 mmol/L (20.0-26.0) H 07/14/20 04:05 ABG O2 Saturation 94.8 % (95.0-99.0) L 07/14/20 04:05 ABG O2 Content 15.3 (0.0-44) 07/14/20 04:05 POC ABG Base Excess 3.0 07/13/20 22:00 ABG Base Excess 6.6 mmol/L (-2.0-3.0) H 07/14/20 04:05 ABG Hemoglobin 11.7 gm/dl (12.0-16.0) L 07/14/20 04:05 ABG Carboxyhemoglobin 1.5 % (0.0-5.0) 07/14/20 04:05 ABG Methemoglobin 0.4 % (0.0-1.5) 07/14/20 04:05 ABG Sodium 137.5 mmol/L (136.0-145.0) 07/13/20 22:00 ABG Potassium 4.1 mmol/L (3.40-4.50) 07/13/20 22:00 ABG Chloride 103.0 mmol/L (98-107) 07/13/20 22:00 ABG Glucose 128 mg/dL (65-95) H 07/13/20 22:00 Oxyhemoglobin 93.0 % (95.0-99.0) L 07/14/20 04:05 FiO2 40 % 07/14/20 04:05 Sodium 140 mmol/L (137-145) 07/13/20 09:50 Potassium 4.0 mmol/L (3.6-5.0) 07/13/20 09:50 Chloride 102.2 mmol/L (98-107) 07/13/20 09:50 Carbon Dioxide 33 mmol/L (22-30) H 07/13/20 09:50 Anion Gap 9 mmol/L 07/13/20 09:50 BUN 18 mg/dL (7-17) H 07/13/20 09:50 Creatinine 0.3 mg/dL (0.6-1.2) L 07/13/20 09:50 Estimated GFR > 60 ml/min 07/13/20 09:50 BUN/Creatinine Ratio 60 % 07/13/20 09:50 Glucose 157 mg/dL (65-100) H 07/13/20 09:50 POC Glucose 119 mg/dL (70-105) H 07/13/20 17:32 Lactic Acid 0.80 mmol/L (0.7-2.0) 07/05/20 23:06 Calcium 8.8 mg/dL (8.4-10.2) 07/13/20 09:50 Magnesium 2.00 mg/dL (1.7-2.3) 07/05/20 23:06 Ferritin 60.8 ng/mL (10.0-200.0) 07/05/20 23:06 Total Bilirubin 0.30 mg/dL (0.1-1.2) 07/06/20 Unknown AST 13 units/L (5-40) 07/06/20 Unknown ALT 10 units/L (7-56) 07/06/20 Unknown Alkaline Phosphatase 71 units/L (35-129) 07/06/20 Unknown Ammonia 40.0 umol/L (25-60) 07/05/20 23:06 Lactate Dehydrogenase 217 units/L (91-180) H 07/05/20 23:06 Lactate Dehydrogenase 217 units/L (91-180) H 07/05/20 23:06 Total Creatine Kinase 55 units/L (30-135) 07/05/20 23:06 Troponin T 0.032 ng/mL (0.00-0.029) H 07/05/20 23:06 C-Reactive Protein 1.60 mg/dL (0.00-1.30) H 07/05/20 23:06 C-Reactive Protein 1.60 mg/dL (0.00-1.30) H 07/05/20 23:06 NT-Pro-B Natriuret Pep 52325 pg/mL (0-900) H 07/06/20 11:09 Total Protein 4.4 g/dL (6.3-8.2) L 07/06/20 Unknown Albumin 2.2 g/dL (3.9-5) L 07/06/20 Unknown Albumin/Globulin Ratio 1.0 % 07/06/20 Unknown Triglycerides 126 mg/dL (2-149) 07/05/20 23:06 Cholesterol 109 mg/dL (50-199) 07/05/20 23:06 LDL Cholesterol Direct 43 mg/dL (50-130) L 07/05/20 23:06 HDL Cholesterol 42 mg/dL (40-59) 07/05/20 23:06 Cholesterol/HDL Ratio 2.59 % 07/05/20 23:06 Procalcitonin < 0.05 ng/mL (<0.15) 07/05/20 23:06 TSH 15.130 mlU/mL (0.270-4.200) H 07/05/20 23:06 Free T4 0.79 ng/dL (0.76-1.46) 07/06/20 11:09 Arterial Blood Glucose 128 mg/dL (65-95) H 07/13/20 22:00 Arterial Blood Ionized Calcium 4.9 mg/dL (4.6-5.3) 07/13/20 22:00 Urine Color Mildred (Yellow) 07/05/20 Unknown Urine Turbidity Clear (Clear) 07/05/20 Unknown Urine pH 5.0 (5.0-7.0) 07/05/20 Unknown Ur Specific [place] 1.025 (1.003-1.030) 07/05/20 Unknown Urine Protein 30 mg/dl mg/dL (Negative) 07/05/20 Unknown Urine Glucose (UA) Neg mg/dL (Negative) 07/05/20 Unknown Urine Ketones Neg mg/dL (Negative) 07/05/20 Unknown Urine Blood Neg (Negative) 07/05/20 Unknown Urine Nitrite Neg (Negative) 07/05/20 Unknown Urine Bilirubin Neg (Negative) 07/05/20 Unknown Urine Urobilinogen 4.0 mg/dL (<2.0) 07/05/20 Unknown Ur Leukocyte Esterase Neg (Negative) 07/05/20 Unknown Urine WBC (Auto) 2.0 /HPF (0.0-6.0) 07/05/20 Unknown Urine RBC (Auto) 1.0 /HPF (0.0-6.0) 07/05/20 Unknown U Epithel Cells (Auto) 1.0 /HPF (0-13.0) 07/05/20 Unknown Hyaline Casts 16 /LPF 07/05/20 Unknown Urine Mucus Few /HPF 07/05/20 Unknown Salicylates < 0.3 mg/dL (2.8-20.0) L 07/05/20 23:06 Acetaminophen < 5.0 ug/mL (10.0-30.0) L 07/05/20 23:06 Plasma/Serum Alcohol < 0.01 % (0-0.07) 07/05/20 23:06 Coronavirus (PCR) Negative (Negative) 07/06/20 Unknown Blood Type O POSITIVE 07/05/20 23:10 Antibody Screen Negative 07/05/20 23:10 Roberts/IV: Voiding Method Indwelling Catheter IV Catheter Type [Right Upper PICC Line arm] IV Catheter Type [Right INT / Saline Lock External Jugular] IV Catheter Type [Left Triple Lumen Cath Internal Jugular] Active Medications - Current Medications Current Medications: Generic Name Dose Route Start Last Admin Trade Name Freq PRN Reason Stop Dose Admin Acetaminophen 650 mg 07/06/20 02:44 Tylenol WA Q4H PRN Pain, Mild (1-3) Lipase/Protease/Amylase 1 each 07/08/20 14:[address] 10,500 Unit FEEDTUBE PRN PRN For Clogged Feeding Tube Bisacodyl 10 mg 07/06/20 02:44 Dulcolax WA QDAY PRN Constipation unrelieved by MOM Dextrose 0 ml 07/06/20 19:30 07/06/20 19:25 D50w (25gm) Syringe IV 30 ml ONCE PRN Administration Hypoglycemia Famotidine 20 mg 07/09/20 10:00 07/13/20 22:29 Pepcid PO 20 mg BID LUZ MARIA Administration Fentanyl 50 mcg 07/05/20 22:08 07/06/20 01:20 Sublimaze IV 50 mcg Q10MIN PRN Administration ANALGESIA Hydralazine HCl 5 mg 07/06/20 02:30 Apresoline IV Q30MIN PRN Hypertension Hydrophilic Ointment 1 applic 07/05/20 22:08 Vaseline Lip Therapy TP Q2HR PRN Dry Lips Fentanyl Citrate 2,000 mcg in 100 mls @ 3.561 mls/hr 07/05/20 23:00 07/13/20 18:27 Fentanyl Drip Premix IV 1 mcg/kg/hr TITR LUZ MARIA 3.561 mls/hr Administration Protocol 1 MCG/KG/HR Norepinephrine 4 mg in 250 mls @ 7.5 mls/hr 07/06/20 22:00 07/11/20 08:50 Levophed Drip 4 Mg/Ns 250 Ml IV 0 mcg/min TITR LUZ MARIA 0 mls/hr Titration Protocol 2 MCG/MIN Dopamine HCl/Dextrose 800 mg in 250 mls @ 2.671 mls/hr 07/07/20 04:00 Intropin Drip 800 Mg/D5w 250 Ml IV TITR LUZ MARIA Protocol 2 MCG/KG/MIN Midazolam HCl 100 mg/ Sodium 100 mls @ 2 mls/hr 07/10/20 13:30 07/13/20 08:29 Chloride IV 2 mg/hr TITR LUZ MARIA 2 mls/hr Administration Protocol 2 MG/HR Methylprednisolone Sodium Succinate 60 mg 07/08/20 22:00 07/14/20 07:19 Solu-Medrol IV 60 mg Q8HR LUZ MARIA Administration Midazolam HCl 2 mg 07/10/20 12:56 Versed IV Q10MIN PRN Sedation Morphine Sulfate 2 mg 07/06/20 02:44 Morphine IV Q4H PRN Pain, Moderate (4-6) Multi-Ingred Cream/Lotion/Oil/Oint 1 applic 07/05/20 22:08 Artificial Tears Ophth Oint OU Q4HR PRN Dry Eye(s) Ondansetron HCl 4 mg 07/06/20 02:44 Zofran IV Q8H PRN N/V unrelieved by Live Quetiapine Fumarate 300 mg 07/10/20 14:00 07/13/20 22:34 Seroquel PO 300 mg BID LUZ MARIA Administration Simple Syrup 15 ml 07/08/20 14:30 Simple Syrup FEEDTUBE PRN PRN Hypoglycemia Simple Syrup 30 ml 07/08/20 14:30 Simple Syrup FEEDTUBE PRN PRN Hypoglycemia Sodium Bicarbonate 325 mg 07/08/20 14:30 Sodium Bicarbonate FEEDTUBE PRN PRN For Clogged Feeding Tube Sodium Chloride 10 ml 07/06/20 10:00 07/13/20 22:30 Sodium Chloride Flush Syringe 10 Ml IV 10 ml BID LUZ MARIA Administration Sodium Chloride 10 ml 07/06/20 02:44 Sodium Chloride Flush Syringe 10 Ml IV PRN PRN LINE FLUSH Nutrition/Malnutrition Assess - Dietary Evaluation Nutrition/Malnutrition Findings: Nutrition Notes Start: 07/06/20 09:30 Freq: Status: Active Protocol: Document 07/12/20 13:14 LP (Rec: 07/12/20 13:22 LP [email or web address]) Nutrition Notes Initial or Follow up Reassessment Current Diagnosis COPD,Heart Failure,Respiratory Failure Other Pertinent Diagnosis Acute enephalopathy, COVID-19 negative, Intracranial hemorrhage Current Diet Promote at 10ml/hr Labs/Tests Reviewed Pertinent Medications Solumedrol Height 5 ft Weight 71.214 kg [place] Body Weight (kg) 45.45 BMI 30.7 Weight Status Obese Subjective/Other Information Pt no longer needs trophic feeds and may increase to goal . Percent of energy/protein needs met: 16%/16% Burn Absent Trauma Absent Food Allergy No Current % PO Negligible Minimum of two criteria No physical signs of malnutrition #1 Nutrition Diagnosis Inadequate oral intake Diagnosis Progress(for reassessment Continues documentation) Is patient on ventilator? Yes Is Patient Ambulatory and/or Out of Bed No REE-([place] Je[facility]-confined to bed) [phone] Calculation [facility] Additional Notes Protein: >2 g/kg IBW: >91g Fluid: 1 ml/kcal Nutrition Intervention Change Diet Order: TF Nutrition Support: Promote 1.0 at 60 ml/hr (goal rate) Flush 50ml q4h Kcal 1,440 Protein (gm) 90 Fluid (mL) 1,208 Goal #1 Meet at least 80% of kcal and protein needs via TF Anticipated Discharge Needs: Unable to determine at this time Follow-Up By: 07/14/20 Additional Comments Follow for TF tolerance at goal rate
--- NOTE | 2020-07-14 08:01 | Progress Note ---
Assessment and Plan Acute and chronic hypoxic and hypercapnic respiratory failure: Acute exacerbation of COPD Tobacco use disorder/Nicotine dependence (on going) Hypernatremia Bradycardia History of coronary artery disease/CHF History of HTN Chronic narcotic dependence Chronic back pain Anxiety disorder History of depression -Wean PEEP to 8 -MRI shows foci of intraparenchymal hemorrhage -ABG in am -CXRs as clinically indicated -Stop Midazolam, start Precedex -Continue all care as documented below. -VTE prophylaxis- with SCD, CT head shows 2 small foci of parenchymal hemorrhage - Continue to taper systemic steroids - complete ABs per ID (Vanc & Cefepime) - continue daily assessment of readiness to wean - continue supplemental oxygen with restrictive strategies re: severe COPD (PaO2 of 60 with O2 sats 88-90% is acceptable) - VAP bundle addressed (aspiration precautions; HOB > 40 degrees) -Lung protective strategies - continue bronchodilators with pulmonary hygiene per RT - Titrate sedation for RASS of 0 to -1 - Maintenance of sleep-wake cycle, avoid delirium - continue enteral nutritional support at goal rate as tolerated - Accuchecks with glycemic control per SSI for target blood glucose of 140-180 mg/dL while critically ill; avoid hypoglycemia - Stress ulcer prophylaxis -Famotidine - Monitor hemodynamics closely - Nicotine withdrawal precautions, nicotine patch -Mobility, PT/OT, range of motion exercises - In view of ongoing smoking, recurrent hospital admission, will need to re- address advance directives and goals of care, once the patient is able to be a part of that discussion. Will also address smoking cessation again, once she is able to be a part of that discussion - discharge planning ongoing concurrently - continue other care per attending / other consultants CONDITION: CRITICAL PROGNOSIS: GUARDED CODE STATUS: FULL CODE The high probability of a clinically significant, sudden or life-threatening deterioration of the respiratory, cardiovascular, neurology, endocrine] system(s) required my full and direct attention, intervention and personal management. The aggregate critical care time was [32] minutes without overlap. Time includes spent on; [x] Data Review and interpretation [x] Patient assessment and monitoring of vital signs [x] Documentation [x] Medication orders and management Subjective Date of service: 07/14/20 Principal diagnosis: Ac and ch hypoxic & hypercapnic resp failure; AE-COPD; Tobacco use disorder Interval history: Patient is seen today for: Ac and ch hypoxic hypercapnic resp failure; AE-COPD; Tobacco use disorder/Nicotine dependence; Hypernatremia; HTN (hypotensive at presentation; Chronic narcotic dependence ; Chronic back pain; Anxiety disorder Seen and examined at bedside; 24-hour events reviewed; nursing and respiratory care staff consulted; no adverse overnight events reported to me; laying in bed; remains on MVS; FiO2 at 50% with peep at 10 Sedated s/p MRI Objective Vital Signs - 12hr 07/13/20 07/13/20 07/13/20 20:15 20:30 20:45 Temperature Pulse Rate 71 68 70 Pulse Rate [ From Monitor] Respiratory 12 12 12 Rate Blood Pressure 105/52 104/52 104/52 O2 Sat by Pulse 94 95 94 Oximetry 07/13/20 07/13/20 07/13/20 21:00 21:15 21:30 Temperature Pulse Rate 69 68 66 Pulse Rate [ From Monitor] Respiratory 12 12 12 Rate Blood Pressure 99/49 99/49 102/48 O2 Sat by Pulse 94 95 95 Oximetry 07/13/20 07/13/20 07/13/20 21:45 22:00 22:15 Temperature Pulse Rate 66 69 66 Pulse Rate [ From Monitor] Respiratory 12 10 L 11 L Rate Blood Pressure 102/48 116/62 116/62 O2 Sat by Pulse 95 94 94 Oximetry 07/13/20 07/13/20 07/13/20 22:30 22:31 22:45 Temperature Pulse Rate 62 65 112 H Pulse Rate [ From Monitor] Respiratory 11 L 10 L 13 Rate Blood Pressure 97/46 97/46 97/46 O2 Sat by Pulse 94 94 94 Oximetry 07/13/20 07/13/20 07/13/20 23:00 23:03 23:15 Temperature Pulse Rate 116 H 115 H 123 H Pulse Rate [ From Monitor] Respiratory 13 13 17 Rate Blood Pressure 128/83 128/83 97/46 O2 Sat by Pulse 94 94 93 Oximetry 07/13/20 07/13/20 07/13/20 23:30 23:44 23:45 Temperature Pulse Rate 120 H 128 H 127 H Pulse Rate [ From Monitor] Respiratory 18 24 Rate Blood Pressure 129/75 129/75 128/83 O2 Sat by Pulse 93 93 92 Oximetry 07/14/20 07/14/20 07/14/20 00:00 00:15 00:30 Temperature 98.4 F Pulse Rate 123 H 123 H 128 H Pulse Rate [ 129 H From Monitor] Respiratory 17 20 25 H Rate Blood Pressure 140/87 140/87 145/83 O2 Sat by Pulse 91 91 91 Oximetry 07/14/20 07/14/20 07/14/20 00:45 01:00 01:15 Temperature Pulse Rate 119 H 133 H 124 H Pulse Rate [ From Monitor] Respiratory 22 24 25 H Rate Blood Pressure 145/83 145/83 138/108 O2 Sat by Pulse 91 90 91 Oximetry 07/14/20 07/14/20 07/14/20 01:30 01:45 02:00 Temperature Pulse Rate 126 H 123 H 126 H Pulse Rate [ From Monitor] Respiratory 24 24 28 H Rate Blood Pressure 153/92 153/92 155/101 O2 Sat by Pulse 90 90 90 Oximetry 07/14/20 07/14/20 07/14/20 02:15 02:30 02:45 Temperature Pulse Rate 121 H 127 H 107 H Pulse Rate [ From Monitor] Respiratory 22 25 H 17 Rate Blood Pressure 155/101 154/93 154/93 O2 Sat by Pulse 91 91 93 Oximetry 07/14/20 07/14/20 07/14/20 03:01 03:15 03:30 Temperature Pulse Rate 93 H 106 H 102 H Pulse Rate [ From Monitor] Respiratory 16 16 16 Rate Blood Pressure 120/67 120/67 126/69 O2 Sat by Pulse 91 92 93 Oximetry 07/14/20 07/14/20 07/14/20 03:45 03:50 04:00 Temperature 98.7 F Pulse Rate 88 85 97 H Pulse Rate [ 88 From Monitor] Respiratory 15 16 Rate Blood Pressure 126/69 126/69 128/69 O2 Sat by Pulse 93 93 93 Oximetry 07/14/20 07/14/20 07/14/20 04:15 04:30 04:45 Temperature Pulse Rate 79 72 72 Pulse Rate [ From Monitor] Respiratory 15 14 15 Rate Blood Pressure 128/69 104/51 104/51 O2 Sat by Pulse 93 93 94 Oximetry 07/14/20 07/14/20 07/14/20 05:00 05:15 05:30 Temperature Pulse Rate 72 73 74 Pulse Rate [ From Monitor] Respiratory 14 14 16 Rate Blood Pressure 104/53 104/53 108/56 O2 Sat by Pulse 94 94 94 Oximetry 07/14/20 07/14/20 07/14/20 05:45 06:00 06:15 Temperature Pulse Rate 69 71 71 Pulse Rate [ From Monitor] Respiratory 14 13 14 Rate Blood Pressure 108/56 105/54 105/54 O2 Sat by Pulse 94 94 94 Oximetry 07/14/20 07/14/20 07/14/20 06:30 06:45 07:00 Temperature Pulse Rate 69 68 69 Pulse Rate [ From Monitor] Respiratory 14 13 13 Rate Blood Pressure 106/54 106/54 103/54 O2 Sat by Pulse 94 94 94 Oximetry 07/14/20 07:15 Temperature Pulse Rate 68 Pulse Rate [ From Monitor] Respiratory 13 Rate Blood Pressure 103/54 O2 Sat by Pulse 94 Oximetry Constitutional: no acute distress, other (elderly obese female with mildly increased respiratory effort at rest on MVS) Eyes: non-icteric ENT: oropharynx moist, other (ETT 23 cm THUY) Neck: supple Effort: mildly labored Ascultation: Bilateral: clear, diminished breath sounds, rhonchi (scant) Percussion: Bilateral: not dull Cardiovascular: regular rate and rhythm, other (sinus tach) Gastrointestinal: normoactive bowel sounds, soft, non-tender, non-distended (protuberant) Integumentary: rash Extremities: no cyanosis, pink and warm, no ischemia or petechiae, edema Neurologic: non-focal exam (grossly), pupils equal and round, other (awake) Psychiatric: other (sedated) CBC and BMP: 07/16/20 07:25 07/16/20 07:25 ABG, PT/INR, D-dimer: ABG ABG pH 7.434 pH Units (7.350-7.450) 07/14/20 04:05 POC ABG pCO2 50.3 mmHg (32.0-48.0) H 07/13/20 22:00 ABG pCO2 48.5 mm Hg 07/14/20 04:05 POC ABG pO2 69.1 mmHg (83-108) L 07/13/20 03:33 ABG pO2 69.1 mm Hg (80.0-90.0) L 07/14/20 04:05 POC ABG HCO3 29.0 07/13/20 22:00 ABG O2 Saturation 94.8 % (95.0-99.0) L 07/14/20 04:05 PT/INR, D-dimer PT 14.5 Sec. (12.2-14.9) 07/07/20 05:15 INR 1.12 (0.87-1.13) 07/07/20 05:15 D-Dimer 1298.20 ng/mlDDU (0-234) H 07/05/20 23:06 Abnormal lab findings: Abnormal Labs 07/05/20 07/05/20 07/05/20 22:55 23:06 23:06 Hct MCV RDW Plt Count Lymph % (Auto) [place] % (Auto) Lymph # (Auto) [place] # (Auto) Seg Neutrophils % Seg Neuts % (Manual) Lymphocytes % (Manual) Nucleated RBC % Seg Neutrophils # Lymphocytes # (Manual) PT 15.2 H INR 1.18 H D-Dimer 1298.20 H ABG pH POC ABG pCO2 POC ABG pO2 ABG pO2 227.3 H ABG HCO3 31.3 H ABG O2 Saturation 99.3 H ABG Base Excess 5.8 H ABG Hemoglobin ABG Sodium ABG Glucose Oxyhemoglobin Potassium Chloride Carbon Dioxide BUN 31 H Creatinine Glucose POC Glucose Calcium 7.7 L Lactate Dehydrogenase 217 H Troponin T 0.032 H C-Reactive Protein 1.60 H NT-Pro-B Natriuret Pep Total Protein 5.2 L Albumin 2.6 L LDL Cholesterol Direct 43 L TSH Arterial Blood Glucose Arterial Blood Ionized Calcium Salicylates Acetaminophen 07/05/20 07/05/20 07/05/20 23:06 23:06 23:06 Hct MCV RDW Plt Count Lymph % (Auto) [place] % (Auto) Lymph # (Auto) [place] # (Auto) Seg Neutrophils % Seg Neuts % (Manual) Lymphocytes % (Manual) Nucleated RBC % Seg Neutrophils # Lymphocytes # (Manual) PT INR D-Dimer ABG pH POC ABG pCO2 POC ABG pO2 ABG pO2 ABG HCO3 ABG O2 Saturation ABG Base Excess ABG Hemoglobin ABG Sodium ABG Glucose Oxyhemoglobin Potassium Chloride Carbon Dioxide BUN Creatinine Glucose POC Glucose Calcium Lactate Dehydrogenase Troponin T C-Reactive Protein NT-Pro-B Natriuret Pep Total Protein Albumin LDL Cholesterol Direct TSH 15.130 H Arterial Blood Glucose Arterial Blood Ionized Calcium Salicylates < 0.3 L Acetaminophen < 5.0 L 07/05/20 07/05/20 07/06/20 23:06 23:42 06:58 Hct MCV 98 H RDW 19.8 H Plt Count Lymph % (Auto) [place] % (Auto) 15.9 H Lymph # (Auto) 0.9 L [place] # (Auto) 1.0 H Seg Neutrophils % Seg Neuts % (Manual) Lymphocytes % (Manual) Nucleated RBC % Seg Neutrophils # Lymphocytes # (Manual) PT INR D-Dimer ABG pH 7.533 H POC ABG pCO2 20.7 L POC ABG pO2 ABG pO2 ABG HCO3 ABG O2 Saturation ABG Base Excess ABG Hemoglobin 7.6 L ABG Sodium 132.3 L ABG Glucose 55 L Oxyhemoglobin Potassium Chloride Carbon Dioxide BUN Creatinine Glucose POC Glucose Calcium Lactate Dehydrogenase 217 H Troponin T C-Reactive Protein 1.60 H NT-Pro-B Natriuret Pep Total Protein Albumin LDL Cholesterol Direct TSH Arterial Blood Glucose 55 L Arterial Blood Ionized Calcium 4.3 L Salicylates Acetaminophen 07/06/20 07/06/20 07/06/20 11:09 11:09 17:46 Hct 43.0 H MCV 100 H RDW 20.8 H Plt Count Lymph % (Auto) 7.2 L [place] % (Auto) 11.4 H Lymph # (Auto) 0.7 L [place] # (Auto) 1.1 H Seg Neutrophils % 81.3 H Seg Neuts % (Manual) Lymphocytes % (Manual) Nucleated RBC % Seg Neutrophils # 7.9 H Lymphocytes # (Manual) PT INR D-Dimer ABG pH POC ABG pCO2 POC ABG pO2 ABG pO2 ABG HCO3 ABG O2 Saturation ABG Base Excess ABG Hemoglobin ABG Sodium ABG Glucose Oxyhemoglobin Potassium Chloride Carbon Dioxide BUN Creatinine Glucose POC Glucose 43 L Calcium Lactate Dehydrogenase Troponin T C-Reactive Protein NT-Pro-B Natriuret Pep 41223 H Total Protein Albumin LDL Cholesterol Direct TSH Arterial Blood Glucose Arterial Blood Ionized Calcium Salicylates Acetaminophen 07/06/20 07/06/20 07/07/20 19:31 Unknown 04:55 Hct MCV RDW Plt Count Lymph % (Auto) [place] % (Auto) Lymph # (Auto) [place] # (Auto) Seg Neutrophils % Seg Neuts % (Manual) Lymphocytes % (Manual) Nucleated RBC % Seg Neutrophils # Lymphocytes # (Manual) PT INR D-Dimer ABG pH POC ABG pCO2 POC ABG pO2 ABG pO2 70.8 L ABG HCO3 28.9 H ABG O2 Saturation 94.5 L ABG Base Excess 3.3 H ABG Hemoglobin 11.6 L ABG Sodium ABG Glucose Oxyhemoglobin 92.7 L Potassium 3.5 L Chloride 110.4 H Carbon Dioxide BUN 19 H Creatinine 0.4 L Glucose 101 H POC Glucose < 40 L Calcium 7.2 L Lactate Dehydrogenase Troponin T C-Reactive Protein NT-Pro-B Natriuret Pep Total Protein 4.4 L Albumin 2.2 L LDL Cholesterol Direct TSH Arterial Blood Glucose Arterial Blood Ionized Calcium Salicylates Acetaminophen 07/07/20 07/07/20 07/08/20 05:15 05:15 03:20 Hct MCV 98 H RDW 19.9 H Plt Count Lymph % (Auto) [place] % (Auto) Lymph # (Auto) [place] # (Auto) Seg Neutrophils % Seg Neuts % (Manual) 76.0 H Lymphocytes % (Manual) Nucleated RBC % 1.0 H Seg Neutrophils # Lymphocytes # (Manual) PT INR D-Dimer ABG pH POC ABG pCO2 POC ABG pO2 ABG pO2 ABG HCO3 29.1 H ABG O2 Saturation ABG Base Excess 3.8 H ABG Hemoglobin ABG Sodium ABG Glucose Oxyhemoglobin Potassium Chloride Carbon Dioxide BUN Creatinine 0.5 L Glucose POC Glucose Calcium 7.6 L Lactate Dehydrogenase Troponin T C-Reactive Protein NT-Pro-B Natriuret Pep Total Protein Albumin LDL Cholesterol Direct TSH Arterial Blood Glucose Arterial Blood Ionized Calcium Salicylates Acetaminophen 07/08/20 07/09/20 07/09/20 07:31 00:02 04:05 Hct MCV RDW Plt Count Lymph % (Auto) [place] % (Auto) Lymph # (Auto) [place] # (Auto) Seg Neutrophils % Seg Neuts % (Manual) Lymphocytes % (Manual) Nucleated RBC % Seg Neutrophils # Lymphocytes # (Manual) PT INR D-Dimer ABG pH POC ABG pCO2 POC ABG pO2 63.4 L ABG pO2 ABG HCO3 ABG O2 Saturation ABG Base Excess ABG Hemoglobin 11.8 L ABG Sodium 134.1 L ABG Glucose 137 H Oxyhemoglobin Potassium Chloride 108.6 H Carbon Dioxide BUN Creatinine 0.3 L Glucose 177 H POC Glucose 118 H Calcium 7.7 L Lactate Dehydrogenase Troponin T C-Reactive Protein NT-Pro-B Natriuret Pep Total Protein Albumin LDL Cholesterol Direct TSH Arterial Blood Glucose 137 H Arterial Blood Ionized Calcium Salicylates Acetaminophen 07/09/20 07/09/20 07/09/20 05:10 12:38 17:31 Hct MCV RDW Plt Count Lymph % (Auto) [place] % (Auto) Lymph # (Auto) [place] # (Auto) Seg Neutrophils % Seg Neuts % (Manual) Lymphocytes % (Manual) Nucleated RBC % Seg Neutrophils # Lymphocytes # (Manual) PT INR D-Dimer ABG pH POC ABG pCO2 POC ABG pO2 ABG pO2 ABG HCO3 ABG O2 Saturation ABG Base Excess ABG Hemoglobin ABG Sodium ABG Glucose Oxyhemoglobin Potassium Chloride Carbon Dioxide BUN Creatinine Glucose POC Glucose 132 H 106 H 120 H Calcium Lactate Dehydrogenase Troponin T C-Reactive Protein NT-Pro-B Natriuret Pep Total Protein Albumin LDL Cholesterol Direct TSH Arterial Blood Glucose Arterial Blood Ionized Calcium Salicylates Acetaminophen 07/10/20 07/10/20 07/10/20 00:27 04:15 05:25 Hct MCV RDW Plt Count Lymph % (Auto) [place] % (Auto) Lymph # (Auto) [place] # (Auto) Seg Neutrophils % Seg Neuts % (Manual) Lymphocytes % (Manual) Nucleated RBC % Seg Neutrophils # Lymphocytes # (Manual) PT INR D-Dimer ABG pH POC ABG pCO2 POC ABG pO2 60.7 L ABG pO2 ABG HCO3 ABG O2 Saturation ABG Base Excess ABG Hemoglobin ABG Sodium ABG Glucose 149 H Oxyhemoglobin Potassium Chloride Carbon Dioxide BUN Creatinine Glucose POC Glucose 129 H 127 H Calcium Lactate Dehydrogenase Troponin T C-Reactive Protein NT-Pro-B Natriuret Pep Total Protein Albumin LDL Cholesterol Direct TSH Arterial Blood Glucose 149 H Arterial Blood Ionized Calcium Salicylates Acetaminophen 07/10/20 07/10/20 07/11/20 12:08 16:57 00:04 Hct MCV RDW Plt Count Lymph % (Auto) [place] % (Auto) Lymph # (Auto) [place] # (Auto) Seg Neutrophils % Seg Neuts % (Manual) Lymphocytes % (Manual) Nucleated RBC % Seg Neutrophils # Lymphocytes # (Manual) PT INR D-Dimer ABG pH POC ABG pCO2 POC ABG pO2 ABG pO2 ABG HCO3 ABG O2 Saturation ABG Base Excess ABG Hemoglobin ABG Sodium ABG Glucose Oxyhemoglobin Potassium Chloride Carbon Dioxide BUN Creatinine Glucose POC Glucose 129 H 152 H 127 H Calcium Lactate Dehydrogenase Troponin T C-Reactive Protein NT-Pro-B Natriuret Pep Total Protein Albumin LDL Cholesterol Direct TSH Arterial Blood Glucose Arterial Blood Ionized Calcium Salicylates Acetaminophen 07/11/20 07/11/20 07/11/20 04:56 05:29 11:47 Hct MCV RDW Plt Count Lymph % (Auto) [place] % (Auto) Lymph # (Auto) [place] # (Auto) Seg Neutrophils % Seg Neuts % (Manual) Lymphocytes % (Manual) Nucleated RBC % Seg Neutrophils # Lymphocytes # (Manual) PT INR D-Dimer ABG pH POC ABG pCO2 48.8 H POC ABG pO2 ABG pO2 ABG HCO3 ABG O2 Saturation ABG Base Excess ABG Hemoglobin ABG Sodium ABG Glucose 153 H Oxyhemoglobin Potassium Chloride Carbon Dioxide BUN Creatinine Glucose POC Glucose 127 H 155 H Calcium Lactate Dehydrogenase Troponin T C-Reactive Protein NT-Pro-B Natriuret Pep Total Protein Albumin LDL Cholesterol Direct TSH Arterial Blood Glucose 153 H Arterial Blood Ionized Calcium Salicylates Acetaminophen 07/11/20 07/12/20 07/12/20 17:12 03:18 17:42 Hct MCV RDW Plt Count Lymph % (Auto) [place] % (Auto) Lymph # (Auto) [place] # (Auto) Seg Neutrophils % Seg Neuts % (Manual) Lymphocytes % (Manual) Nucleated RBC % Seg Neutrophils # Lymphocytes # (Manual) PT INR D-Dimer ABG pH POC ABG pCO2 POC ABG pO2 71.4 L ABG pO2 ABG HCO3 ABG O2 Saturation ABG Base Excess ABG Hemoglobin ABG Sodium ABG Glucose 99 H Oxyhemoglobin Potassium Chloride Carbon Dioxide BUN Creatinine Glucose POC Glucose 118 H 112 H Calcium Lactate Dehydrogenase Troponin T C-Reactive Protein NT-Pro-B Natriuret Pep Total Protein Albumin LDL Cholesterol Direct TSH Arterial Blood Glucose 99 H Arterial Blood Ionized Calcium Salicylates Acetaminophen 07/13/20 07/13/20 07/13/20 03:33 09:50 09:50 Hct MCV RDW 17.7 H Plt Count 135 L Lymph % (Auto) [place] % (Auto) Lymph # (Auto) [place] # (Auto) Seg Neutrophils % Seg Neuts % (Manual) 96.0 H Lymphocytes % (Manual) 3.0 L Nucleated RBC % Seg Neutrophils # Lymphocytes # (Manual) 0.2 L PT INR D-Dimer ABG pH 7.462 H POC ABG pCO2 POC ABG pO2 69.1 L ABG pO2 ABG HCO3 ABG O2 Saturation ABG Base Excess ABG Hemoglobin ABG Sodium ABG Glucose 125 H Oxyhemoglobin Potassium Chloride Carbon Dioxide 33 H BUN 18 H Creatinine 0.3 L Glucose 157 H POC Glucose Calcium Lactate Dehydrogenase Troponin T C-Reactive Protein NT-Pro-B Natriuret Pep Total Protein Albumin LDL Cholesterol Direct TSH Arterial Blood Glucose 125 H Arterial Blood Ionized Calcium Salicylates Acetaminophen 07/13/20 07/13/20 07/13/20 11:52 17:32 22:00 Hct MCV RDW Plt Count Lymph % (Auto) [place] % (Auto) Lymph # (Auto) [place] # (Auto) Seg Neutrophils % Seg Neuts % (Manual) Lymphocytes % (Manual) Nucleated RBC % Seg Neutrophils # Lymphocytes # (Manual) PT INR D-Dimer ABG pH POC ABG pCO2 50.3 H POC ABG pO2 ABG pO2 ABG HCO3 ABG O2 Saturation ABG Base Excess ABG Hemoglobin 11.4 L ABG Sodium ABG Glucose 128 H Oxyhemoglobin Potassium Chloride Carbon Dioxide BUN Creatinine Glucose POC Glucose 139 H 119 H Calcium Lactate Dehydrogenase Troponin T C-Reactive Protein NT-Pro-B Natriuret Pep Total Protein Albumin LDL Cholesterol Direct TSH Arterial Blood Glucose 128 H Arterial Blood Ionized Calcium Salicylates Acetaminophen 07/14/20 04:05 Hct MCV RDW Plt Count Lymph % (Auto) [place] % (Auto) Lymph # (Auto) [place] # (Auto) Seg Neutrophils % Seg Neuts % (Manual) Lymphocytes % (Manual) Nucleated RBC % Seg Neutrophils # Lymphocytes # (Manual) PT INR D-Dimer ABG pH POC ABG pCO2 POC ABG pO2 ABG pO2 69.1 L ABG HCO3 31.8 H ABG O2 Saturation 94.8 L ABG Base Excess 6.6 H ABG Hemoglobin 11.7 L ABG Sodium ABG Glucose Oxyhemoglobin 93.0 L Potassium Chloride Carbon Dioxide BUN Creatinine Glucose POC Glucose Calcium Lactate Dehydrogenase Troponin T C-Reactive Protein NT-Pro-B Natriuret Pep Total Protein Albumin LDL Cholesterol Direct TSH Arterial Blood Glucose Arterial Blood Ionized Calcium Salicylates Acetaminophen Allied health notes reviewed: RT
[2020-07-14] MEDS: QUEtiapine 100 MG TAB PO SCH ×2 (09:35→21:09)
[2020-07-14] MEDS: FAMOTIDINE 20 MG TAB PO SCH ×2 (09:35→21:09)
[2020-07-14] MEDS ORDERED: MAGNESIUM HYDROXIDE (MOM) ORAL LIQD UDC PO PRN (12:06)
[2020-07-14] MEDS: fentaNYL DRIP Premix 2,000 MCG/100 ML BAG IV SCH (12:40)
--- NOTE | 2020-07-14 13:19 | Progress Note ---
Assessment and Plan - Patient Problems (1) Respiratory failure Current Visit: Yes Status: Acute Plan to address problem: Continue supportive management, conservative cardiac management as previously outlined. (2) Paroxysmal atrial fibrillation Current Visit: Yes Status: Acute Plan to address problem: Optimize medical therapy for paroxysmal atrial fibrillation. Subjective Date of service: 07/14/20 Principal diagnosis: Ac and ch hypoxic & hypercapnic resp failure; AE-COPD; Tobacco use disorder Interval history: Patient is sedated, on the vent. On secured entrance monitor, there is recurrent atrial fibrillation. Objective Vital Signs Temp Pulse Pulse Resp BP Pulse Ox 07/14/20 12:40 105 H 107/62 94 07/14/20 11:45 118 H 20 123/71 94 07/14/20 11:30 117 H 20 123/71 94 07/14/20 11:15 125 H 25 H 145/84 93 07/14/20 11:00 127 H 24 145/84 93 07/14/20 10:45 128 H 21 161/99 93 07/14/20 10:30 132 H 26 H 161/99 92 07/14/20 10:15 128 H 20 152/104 92 07/14/20 10:01 133 H 27 H 152/104 87 07/14/20 10:00 97.8 F 07/14/20 09:45 121 H 22 159/100 89 07/14/20 09:30 120 H 22 159/100 89 07/14/20 09:15 118 H 20 157/103 92 07/14/20 09:01 122 H 22 157/103 89 07/14/20 08:45 122 H 20 146/101 89 07/14/20 08:31 118 H 16 146/101 90 07/14/20 08:15 115 H 20 111/59 94 07/14/20 08:10 114 H 111/59 98 07/14/20 08:00 64 117 H 13 111/59 94 07/14/20 07:45 64 13 106/55 94 07/14/20 07:30 64 13 106/55 94 07/14/20 07:15 68 13 103/54 94 07/14/20 07:00 69 13 103/54 94 07/14/20 06:45 68 13 106/54 94 07/14/20 06:30 69 14 106/54 94 07/14/20 06:15 71 14 105/54 94 07/14/20 06:00 71 13 105/54 94 07/14/20 05:45 69 14 108/56 94 07/14/20 05:30 74 16 108/56 94 07/14/20 05:15 73 14 104/53 94 07/14/20 05:00 72 14 104/53 94 07/14/20 04:45 72 15 104/51 94 07/14/20 04:30 72 14 104/51 93 07/14/20 04:15 79 15 128/69 93 07/14/20 04:00 98.7 F 97 H 88 16 128/69 93 07/14/20 03:50 85 126/69 93 07/14/20 03:45 88 15 126/69 93 07/14/20 03:30 102 H 16 126/69 93 07/14/20 03:15 106 H 16 120/67 92 07/14/20 03:01 93 H 16 120/67 91 07/14/20 02:45 107 H 17 154/93 93 07/14/20 02:30 127 H 25 H 154/93 91 07/14/20 02:15 121 H 22 155/101 91 07/14/20 02:00 126 H 28 H 155/101 90 07/14/20 01:45 123 H 24 153/92 90 07/14/20 01:30 126 H 24 153/92 90 07/14/20 01:15 124 H 25 H 138/108 91 07/14/20 01:00 133 H 24 145/83 90 07/14/20 00:45 119 H 22 145/83 91 07/14/20 00:30 128 H 25 H 145/83 91 07/14/20 00:15 123 H 20 140/87 91 07/14/20 00:00 98.4 F 123 H 129 H 17 140/87 91 07/13/20 23:45 127 H 24 128/83 92 07/13/20 23:44 128 H 129/75 93 07/13/20 23:30 120 H 18 129/75 93 07/13/20 23:15 123 H 17 97/46 93 07/13/20 23:03 115 H 13 128/83 94 07/13/20 23:00 116 H 13 128/83 94 07/13/20 22:45 112 H 13 97/46 94 07/13/20 22:31 65 10 L 97/46 94 07/13/20 22:30 62 11 L 97/46 94 07/13/20 22:15 66 11 L 116/62 94 07/13/20 22:00 69 10 L 116/62 94 07/13/20 21:45 66 12 102/48 95 07/13/20 21:30 66 12 102/48 95 07/13/20 21:15 68 12 99/49 95 07/13/20 21:00 69 12 99/49 94 07/13/20 20:45 70 12 104/52 94 07/13/20 20:30 68 12 104/52 95 07/13/20 20:15 71 12 105/52 94 07/13/20 20:00 97.9 F 69 67 12 105/52 94 07/13/20 19:45 66 12 104/51 94 07/13/20 19:37 66 104/51 94 07/13/20 19:30 64 12 104/51 94 07/13/20 19:15 65 12 103/56 94 07/13/20 19:00 69 11 L 112/64 94 07/13/20 18:45 72 10 L 99/55 93 07/13/20 18:30 64 12 103/56 95 07/13/20 18:11 67 12 117/75 94 07/13/20 18:00 98.3 F 64 11 L 99/55 94 07/13/20 17:51 69 11 L 134/85 93 07/13/20 17:41 70 11 L 134/85 93 07/13/20 17:31 90 11 L 117/75 93 07/13/20 17:21 82 11 L 134/85 93 07/13/20 17:11 86 11 L 134/85 93 07/13/20 17:00 97 H 12 134/85 92 07/13/20 16:51 93 H 12 148/96 93 07/13/20 16:41 92 H 11 L 148/96 92 07/13/20 16:30 120 H 15 148/96 89 07/13/20 16:26 122 H 140/90 90 07/13/20 16:21 124 H 21 140/90 90 07/13/20 16:11 120 H 17 140/90 91 07/13/20 16:00 111 H 13 140/90 93 07/13/20 15:51 118 H 14 137/89 92 07/13/20 15:41 97 H 11 L 137/89 93 07/13/20 15:30 98 H 11 L 137/89 94 07/13/20 15:21 102 H 11 L 141/87 94 07/13/20 15:11 106 H 12 141/87 94 07/13/20 15:00 100 H 11 L 141/87 94 07/13/20 14:51 117 H 14 147/97 93 07/13/20 14:41 147/97 90 07/13/20 14:36 92/46 07/13/20 14:00 99 F 07/13/20 13:20 87 20 92/46 89 - Physical Examination General: Other (intubated on the vent) HEENT: Positive: PERRL Neck: Positive: neck supple Cardiac: Positive: irregularly irregular Lungs: Positive: Decreased Breath Sounds Neuro: Positive: Weakness (Unresponsive, on the vent) Abdomen: Positive: Soft Skin: Positive: Clear Extremities: Absent: edema - Allied health notes Allied health notes reviewed: RT
[2020-07-14] MEDS ORDERED: METOPROLOL TARTRATE 5 MG/5 ML INJ IV PRN (13:20)
[2020-07-14] MEDS: dilTIAZem 60 MG TAB PO SCH ×3 (15:24→23:23)
[2020-07-15] MEDS: MIDAZOLAM 100 MG in SODIUM CHLORIDE 0.9% 80 ML IV SCH (01:39)
[2020-07-15] MEDS: dilTIAZem 60 MG TAB PO SCH ×4 (05:02→23:54)
[2020-07-15] MEDS: methylPREDNISolone Sod Succinate 125 MG/2 ML INJ IV SCH ×3 (05:02→21:29)
[2020-07-15] MEDS: FAMOTIDINE 20 MG TAB PO SCH ×2 (09:34→21:30)
[2020-07-15] MEDS: QUEtiapine 100 MG TAB PO SCH ×2 (09:34→22:23)
--- NOTE | 2020-07-15 09:59 | Progress Note ---
Assessment and Plan Acute and chronic hypoxic and hypercapnic respiratory failure: Acute exacerbation of COPD Tobacco use disorder/Nicotine dependence (on going) Hypernatremia History of coronary artery disease/CHF History of HTN Chronic narcotic dependence Chronic back pain Anxiety disorder History of depression; Obesity; BMI 32.2 - reduced FiO2 to 50% & RT notified - keep peep at 8 for now - continue to wean FiO2 for target O2 sat's > 90% - MRI reports stable changes - no new issues otherwise, continue other care as below - continue contact isolation - continue systemic steroids with slow taper - prn Levophed for target MAP >/= 65 mmHg - complete AB's per ID rec's (S/P Vanc & Cefepime) - continue daily SAT and SBT assessment as tolerated - continue supplemental oxygen with restrictive strategies acutely re: severe COPD (PaO2 of 60 with O2 sats 88-90% is acceptable) - VAP bundle addressed (aspiration precautions; HOB > 40 degrees) - continue bronchodilators with pulmonary hygiene per RT - Avoid benzodiazepine's, reduce the possibility of delirium - Continue with fentanyl, titrate for RASS of 0 to -1 - Maintenance of sleep-wake cycle, avoid delirium - continue enteral nutritional support at goal rate as tolerated - Accuchecks with glycemic control per SSI for target blood glucose of 140-180 mg/dL while critically ill; avoid hypoglycemia - VTE prophylaxis - Stress ulcer prophylaxis - Monitor hemodynamics closely - Avoid delirium; Avoid benzodiazepines - Nicotine withdrawal precautions, nicotine patch - In view of ongoing smoking, recurrent hospital admission, will need to re- address advance directives and goals of care, once the patient is able to be a part of that discussion. Will also address smoking cessation again, once she is able to be a part of that discussion - discharge planning ongoing concurrently - continue other care per attending / other lean process deployment consultant's .... re-evaluate in am & prn CONDITION: CRITICAL PROGNOSIS: GUARDED CODE STATUS: FULL CODE The high probability of a clinically significant, sudden or life-threatening deterioration of the respiratory, cardiovascular, neurology, endocrine] s ystem(s) required my full and direct attention, intervention and personal management. The aggregate critical care time was [32] minutes without overlap. Time includes spent on; [x] Data Review and interpretation [x] Patient assessment and monitoring of vital signs [x] Documentation [x] Medication orders and management Subjective Date of service: 07/15/20 Principal diagnosis: Ac and ch hypoxic & hypercapnic resp failure; AE-COPD; Tobacco use disorder Interval history: Patient is seen today for: Ac and ch hypoxic hypercapnic resp failure; AE-COPD; Tobacco use disorder/Nicotine dependence; Hypernatremia; HTN (hypotensive at presentation; Chronic narcotic dependence ; Chronic back pain; Anxiety disorder Seen and examined at bedside; 24-hour events reviewed; nursing and respiratory care staff consulted; no adverse overnight events reported to me; laying in bed; remains on MVS; FiO2 increased to 60% overnight with peep at 8; she is sedated but appropriate during SAT; no seizures; Afebrile; No emesis or overt aspiration Objective Vital Signs - 12hr 07/14/20 07/14/20 07/14/20 22:01 22:15 22:30 Temperature Pulse Rate 105 H 83 73 Pulse Rate [ From Monitor] Respiratory 29 H 21 19 Rate Blood Pressure 114/65 114/65 109/61 O2 Sat by Pulse 94 95 95 Oximetry 07/14/20 07/14/20 07/14/20 22:45 23:00 23:15 Temperature Pulse Rate 59 L 56 L 54 L Pulse Rate [ From Monitor] Respiratory 18 18 16 Rate Blood Pressure 109/61 110/56 110/56 O2 Sat by Pulse 95 96 96 Oximetry 07/14/20 07/14/20 07/14/20 23:23 23:30 23:44 Temperature 98.6 F Pulse Rate 58 L 53 L Pulse Rate [ From Monitor] Respiratory 17 Rate Blood Pressure 110/56 115/60 O2 Sat by Pulse 96 Oximetry 07/14/20 07/15/20 07/15/20 23:45 00:00 00:15 Temperature Pulse Rate 52 L 52 L 52 L Pulse Rate [ 56 L From Monitor] Respiratory 17 17 18 Rate Blood Pressure 115/60 109/54 109/54 O2 Sat by Pulse 96 96 95 Oximetry 07/15/20 07/15/20 07/15/20 00:30 00:45 01:00 Temperature Pulse Rate 55 L 56 L 57 L Pulse Rate [ From Monitor] Respiratory 18 19 19 Rate Blood Pressure 100/49 100/49 97/46 O2 Sat by Pulse 95 96 96 Oximetry 07/15/20 07/15/20 07/15/20 01:15 01:31 01:45 Temperature Pulse Rate 56 L 109 H 120 H Pulse Rate [ From Monitor] Respiratory 17 23 24 Rate Blood Pressure 100/49 131/80 97/46 O2 Sat by Pulse 96 94 94 Oximetry 07/15/20 07/15/20 07/15/20 02:00 02:15 02:30 Temperature Pulse Rate 115 H 112 H 108 H Pulse Rate [ From Monitor] Respiratory 24 23 22 Rate Blood Pressure 139/80 139/80 125/84 O2 Sat by Pulse 94 94 94 Oximetry 07/15/20 07/15/20 07/15/20 02:45 03:00 03:15 Temperature Pulse Rate 106 H 111 H 105 H Pulse Rate [ From Monitor] Respiratory 22 22 21 Rate Blood Pressure 125/84 129/81 129/81 O2 Sat by Pulse 95 94 94 Oximetry 07/15/20 07/15/20 07/15/20 03:30 03:45 04:00 Temperature 97.8 F Pulse Rate 104 H 100 H 108 H Pulse Rate [ 108 H From Monitor] Respiratory 26 H 23 24 Rate Blood Pressure 137/82 137/82 147/92 O2 Sat by Pulse 93 94 93 Oximetry 07/15/20 07/15/20 07/15/20 04:15 04:31 04:45 Temperature Pulse Rate 99 H 138 H 103 H Pulse Rate [ From Monitor] Respiratory 25 H 19 27 H Rate Blood Pressure 147/92 136/87 136/87 O2 Sat by Pulse 94 93 95 Oximetry 07/15/20 07/15/20 07/15/20 05:00 05:02 05:15 Temperature Pulse Rate 102 H 102 H 103 H Pulse Rate [ From Monitor] Respiratory 22 23 Rate Blood Pressure 145/95 145/95 145/95 O2 Sat by Pulse 95 95 Oximetry 07/15/20 07/15/20 07/15/20 05:30 05:45 06:00 Temperature Pulse Rate 99 H 102 H 90 Pulse Rate [ From Monitor] Respiratory 22 23 23 Rate Blood Pressure 136/83 136/83 132/73 O2 Sat by Pulse 96 95 96 Oximetry 07/15/20 07/15/20 07/15/20 06:15 06:30 06:45 Temperature Pulse Rate 91 H 102 H 88 Pulse Rate [ From Monitor] Respiratory 23 23 23 Rate Blood Pressure 132/73 147/69 147/69 O2 Sat by Pulse 96 95 95 Oximetry 07/15/20 07/15/20 07/15/20 07:00 07:15 07:31 Temperature Pulse Rate 76 62 77 Pulse Rate [ From Monitor] Respiratory 23 20 24 Rate Blood Pressure 142/64 142/64 119/69 O2 Sat by Pulse 94 94 95 Oximetry 07/15/20 07/15/20 07/15/20 07:45 07:58 08:00 Temperature 98.3 F Pulse Rate 59 L 76 70 Pulse Rate [ 108 H From Monitor] Respiratory 21 23 Rate Blood Pressure 119/69 119/69 120/63 O2 Sat by Pulse 95 96 95 Oximetry 07/15/20 08:15 Temperature Pulse Rate 55 L Pulse Rate [ From Monitor] Respiratory 19 Rate Blood Pressure 120/63 O2 Sat by Pulse 96 Oximetry Constitutional: no acute distress, other (elderly obese female with mildly increased respiratory effort at rest on MVS) Eyes: non-icteric ENT: oropharynx moist, other (ETT 23 cm THUY) Neck: supple Effort: mildly labored Ascultation: Bilateral: diminished breath sounds, rhonchi (scant) Percussion: Bilateral: not dull Cardiovascular: regular rate and rhythm, other (sinus tach) Gastrointestinal: normoactive bowel sounds, soft, non-tender, non-distended (protuberant) Integumentary: rash Extremities: no cyanosis, pink and warm, no ischemia or petechiae, edema Neurologic: non-focal exam (grossly), pupils equal and round, other (sedated) Psychiatric: other (sedated) CBC and BMP: 07/13/20 09:50 07/13/20 09:50 ABG, PT/INR, D-dimer: ABG ABG pH 7.434 pH Units (7.350-7.450) 07/14/20 04:05 POC ABG pCO2 50.3 mmHg (32.0-48.0) H 07/13/20 22:00 ABG pCO2 48.5 mm Hg 07/14/20 04:05 POC ABG pO2 69.1 mmHg (83-108) L 07/13/20 03:33 ABG pO2 69.1 mm Hg (80.0-90.0) L 07/14/20 04:05 POC ABG HCO3 29.0 07/13/20 22:00 ABG O2 Saturation 94.8 % (95.0-99.0) L 07/14/20 04:05 PT/INR, D-dimer PT 14.5 Sec. (12.2-14.9) 07/07/20 05:15 INR 1.12 (0.87-1.13) 07/07/20 05:15 D-Dimer 1298.20 ng/mlDDU (0-234) H 07/05/20 23:06 Abnormal lab findings: Abnormal Labs 07/05/20 07/05/20 07/05/20 22:55 23:06 23:06 Hct MCV RDW Plt Count Lymph % (Auto) [place] % (Auto) Lymph # (Auto) [place] # (Auto) Seg Neutrophils % Seg Neuts % (Manual) Lymphocytes % (Manual) Nucleated RBC % Seg Neutrophils # Lymphocytes # (Manual) PT 15.2 H INR 1.18 H D-Dimer 1298.20 H ABG pH POC ABG pCO2 POC ABG pO2 ABG pO2 227.3 H ABG HCO3 31.3 H ABG O2 Saturation 99.3 H ABG Base Excess 5.8 H ABG Hemoglobin ABG Sodium ABG Glucose Oxyhemoglobin Potassium Chloride Carbon Dioxide BUN 31 H Creatinine Glucose POC Glucose Calcium 7.7 L Lactate Dehydrogenase 217 H Troponin T 0.032 H C-Reactive Protein 1.60 H NT-Pro-B Natriuret Pep Total Protein 5.2 L Albumin 2.6 L LDL Cholesterol Direct 43 L TSH Arterial Blood Glucose Arterial Blood Ionized Calcium Salicylates Acetaminophen 07/05/20 07/05/20 07/05/20 23:06 23:06 23:06 Hct MCV RDW Plt Count Lymph % (Auto) [place] % (Auto) Lymph # (Auto) [place] # (Auto) Seg Neutrophils % Seg Neuts % (Manual) Lymphocytes % (Manual) Nucleated RBC % Seg Neutrophils # Lymphocytes # (Manual) PT INR D-Dimer ABG pH POC ABG pCO2 POC ABG pO2 ABG pO2 ABG HCO3 ABG O2 Saturation ABG Base Excess ABG Hemoglobin ABG Sodium ABG Glucose Oxyhemoglobin Potassium Chloride Carbon Dioxide BUN Creatinine Glucose POC Glucose Calcium Lactate Dehydrogenase Troponin T C-Reactive Protein NT-Pro-B Natriuret Pep Total Protein Albumin LDL Cholesterol Direct TSH 15.130 H Arterial Blood Glucose Arterial Blood Ionized Calcium Salicylates < 0.3 L Acetaminophen < 5.0 L 07/05/20 07/05/20 07/06/20 23:06 23:42 06:58 Hct MCV 98 H RDW 19.8 H Plt Count Lymph % (Auto) [place] % (Auto) 15.9 H Lymph # (Auto) 0.9 L [place] # (Auto) 1.0 H Seg Neutrophils % Seg Neuts % (Manual) Lymphocytes % (Manual) Nucleated RBC % Seg Neutrophils # Lymphocytes # (Manual) PT INR D-Dimer ABG pH 7.533 H POC ABG pCO2 20.7 L POC ABG pO2 ABG pO2 ABG HCO3 ABG O2 Saturation ABG Base Excess ABG Hemoglobin 7.6 L ABG Sodium 132.3 L ABG Glucose 55 L Oxyhemoglobin Potassium Chloride Carbon Dioxide BUN Creatinine Glucose POC Glucose Calcium Lactate Dehydrogenase 217 H Troponin T C-Reactive Protein 1.60 H NT-Pro-B Natriuret Pep Total Protein Albumin LDL Cholesterol Direct TSH Arterial Blood Glucose 55 L Arterial Blood Ionized Calcium 4.3 L Salicylates Acetaminophen 07/06/20 07/06/20 07/06/20 11:09 11:09 17:46 Hct 43.0 H MCV 100 H RDW 20.8 H Plt Count Lymph % (Auto) 7.2 L [place] % (Auto) 11.4 H Lymph # (Auto) 0.7 L [place] # (Auto) 1.1 H Seg Neutrophils % 81.3 H Seg Neuts % (Manual) Lymphocytes % (Manual) Nucleated RBC % Seg Neutrophils # 7.9 H Lymphocytes # (Manual) PT INR D-Dimer ABG pH POC ABG pCO2 POC ABG pO2 ABG pO2 ABG HCO3 ABG O2 Saturation ABG Base Excess ABG Hemoglobin ABG Sodium ABG Glucose Oxyhemoglobin Potassium Chloride Carbon Dioxide BUN Creatinine Glucose POC Glucose 43 L Calcium Lactate Dehydrogenase Troponin T C-Reactive Protein NT-Pro-B Natriuret Pep 35410 H Total Protein Albumin LDL Cholesterol Direct TSH Arterial Blood Glucose Arterial Blood Ionized Calcium Salicylates Acetaminophen 07/06/20 07/06/20 07/07/20 19:31 Unknown 04:55 Hct MCV RDW Plt Count Lymph % (Auto) [place] % (Auto) Lymph # (Auto) [place] # (Auto) Seg Neutrophils % Seg Neuts % (Manual) Lymphocytes % (Manual) Nucleated RBC % Seg Neutrophils # Lymphocytes # (Manual) PT INR D-Dimer ABG pH POC ABG pCO2 POC ABG pO2 ABG pO2 70.8 L ABG HCO3 28.9 H ABG O2 Saturation 94.5 L ABG Base Excess 3.3 H ABG Hemoglobin 11.6 L ABG Sodium ABG Glucose Oxyhemoglobin 92.7 L Potassium 3.5 L Chloride 110.4 H Carbon Dioxide BUN 19 H Creatinine 0.4 L Glucose 101 H POC Glucose < 40 L Calcium 7.2 L Lactate Dehydrogenase Troponin T C-Reactive Protein NT-Pro-B Natriuret Pep Total Protein 4.4 L Albumin 2.2 L LDL Cholesterol Direct TSH Arterial Blood Glucose Arterial Blood Ionized Calcium Salicylates Acetaminophen 07/07/20 07/07/20 07/08/20 05:15 05:15 03:20 Hct MCV 98 H RDW 19.9 H Plt Count Lymph % (Auto) [place] % (Auto) Lymph # (Auto) [place] # (Auto) Seg Neutrophils % Seg Neuts % (Manual) 76.0 H Lymphocytes % (Manual) Nucleated RBC % 1.0 H Seg Neutrophils # Lymphocytes # (Manual) PT INR D-Dimer ABG pH POC ABG pCO2 POC ABG pO2 ABG pO2 ABG HCO3 29.1 H ABG O2 Saturation ABG Base Excess 3.8 H ABG Hemoglobin ABG Sodium ABG Glucose Oxyhemoglobin Potassium Chloride Carbon Dioxide BUN Creatinine 0.5 L Glucose POC Glucose Calcium 7.6 L Lactate Dehydrogenase Troponin T C-Reactive Protein NT-Pro-B Natriuret Pep Total Protein Albumin LDL Cholesterol Direct TSH Arterial Blood Glucose Arterial Blood Ionized Calcium Salicylates Acetaminophen 07/08/20 07/09/20 07/09/20 07:31 00:02 04:05 Hct MCV RDW Plt Count Lymph % (Auto) [place] % (Auto) Lymph # (Auto) [place] # (Auto) Seg Neutrophils % Seg Neuts % (Manual) Lymphocytes % (Manual) Nucleated RBC % Seg Neutrophils # Lymphocytes # (Manual) PT INR D-Dimer ABG pH POC ABG pCO2 POC ABG pO2 63.4 L ABG pO2 ABG HCO3 ABG O2 Saturation ABG Base Excess ABG Hemoglobin 11.8 L ABG Sodium 134.1 L ABG Glucose 137 H Oxyhemoglobin Potassium Chloride 108.6 H Carbon Dioxide BUN Creatinine 0.3 L Glucose 177 H POC Glucose 118 H Calcium 7.7 L Lactate Dehydrogenase Troponin T C-Reactive Protein NT-Pro-B Natriuret Pep Total Protein Albumin LDL Cholesterol Direct TSH Arterial Blood Glucose 137 H Arterial Blood Ionized Calcium Salicylates Acetaminophen 07/09/20 07/09/20 07/09/20 05:10 12:38 17:31 Hct MCV RDW Plt Count Lymph % (Auto) [place] % (Auto) Lymph # (Auto) [place] # (Auto) Seg Neutrophils % Seg Neuts % (Manual) Lymphocytes % (Manual) Nucleated RBC % Seg Neutrophils # Lymphocytes # (Manual) PT INR D-Dimer ABG pH POC ABG pCO2 POC ABG pO2 ABG pO2 ABG HCO3 ABG O2 Saturation ABG Base Excess ABG Hemoglobin ABG Sodium ABG Glucose Oxyhemoglobin Potassium Chloride Carbon Dioxide BUN Creatinine Glucose POC Glucose 132 H 106 H 120 H Calcium Lactate Dehydrogenase Troponin T C-Reactive Protein NT-Pro-B Natriuret Pep Total Protein Albumin LDL Cholesterol Direct TSH Arterial Blood Glucose Arterial Blood Ionized Calcium Salicylates Acetaminophen 07/10/20 07/10/20 07/10/20 00:27 04:15 05:25 Hct MCV RDW Plt Count Lymph % (Auto) [place] % (Auto) Lymph # (Auto) [place] # (Auto) Seg Neutrophils % Seg Neuts % (Manual) Lymphocytes % (Manual) Nucleated RBC % Seg Neutrophils # Lymphocytes # (Manual) PT INR D-Dimer ABG pH POC ABG pCO2 POC ABG pO2 60.7 L ABG pO2 ABG HCO3 ABG O2 Saturation ABG Base Excess ABG Hemoglobin ABG Sodium ABG Glucose 149 H Oxyhemoglobin Potassium Chloride Carbon Dioxide BUN Creatinine Glucose POC Glucose 129 H 127 H Calcium Lactate Dehydrogenase Troponin T C-Reactive Protein NT-Pro-B Natriuret Pep Total Protein Albumin LDL Cholesterol Direct TSH Arterial Blood Glucose 149 H Arterial Blood Ionized Calcium Salicylates Acetaminophen 07/10/20 07/10/20 07/11/20 12:08 16:57 00:04 Hct MCV RDW Plt Count Lymph % (Auto) [place] % (Auto) Lymph # (Auto) [place] # (Auto) Seg Neutrophils % Seg Neuts % (Manual) Lymphocytes % (Manual) Nucleated RBC % Seg Neutrophils # Lymphocytes # (Manual) PT INR D-Dimer ABG pH POC ABG pCO2 POC ABG pO2 ABG pO2 ABG HCO3 ABG O2 Saturation ABG Base Excess ABG Hemoglobin ABG Sodium ABG Glucose Oxyhemoglobin Potassium Chloride Carbon Dioxide BUN Creatinine Glucose POC Glucose 129 H 152 H 127 H Calcium Lactate Dehydrogenase Troponin T C-Reactive Protein NT-Pro-B Natriuret Pep Total Protein Albumin LDL Cholesterol Direct TSH Arterial Blood Glucose Arterial Blood Ionized Calcium Salicylates Acetaminophen 07/11/20 07/11/20 07/11/20 04:56 05:29 11:47 Hct MCV RDW Plt Count Lymph % (Auto) [place] % (Auto) Lymph # (Auto) [place] # (Auto) Seg Neutrophils % Seg Neuts % (Manual) Lymphocytes % (Manual) Nucleated RBC % Seg Neutrophils # Lymphocytes # (Manual) PT INR D-Dimer ABG pH POC ABG pCO2 48.8 H POC ABG pO2 ABG pO2 ABG HCO3 ABG O2 Saturation ABG Base Excess ABG Hemoglobin ABG Sodium ABG Glucose 153 H Oxyhemoglobin Potassium Chloride Carbon Dioxide BUN Creatinine Glucose POC Glucose 127 H 155 H Calcium Lactate Dehydrogenase Troponin T C-Reactive Protein NT-Pro-B Natriuret Pep Total Protein Albumin LDL Cholesterol Direct TSH Arterial Blood Glucose 153 H Arterial Blood Ionized Calcium Salicylates Acetaminophen 07/11/20 07/12/20 07/12/20 17:12 03:18 17:42 Hct MCV RDW Plt Count Lymph % (Auto) [place] % (Auto) Lymph # (Auto) [place] # (Auto) Seg Neutrophils % Seg Neuts % (Manual) Lymphocytes % (Manual) Nucleated RBC % Seg Neutrophils # Lymphocytes # (Manual) PT INR D-Dimer ABG pH POC ABG pCO2 POC ABG pO2 71.4 L ABG pO2 ABG HCO3 ABG O2 Saturation ABG Base Excess ABG Hemoglobin ABG Sodium ABG Glucose 99 H Oxyhemoglobin Potassium Chloride Carbon Dioxide BUN Creatinine Glucose POC Glucose 118 H 112 H Calcium Lactate Dehydrogenase Troponin T C-Reactive Protein NT-Pro-B Natriuret Pep Total Protein Albumin LDL Cholesterol Direct TSH Arterial Blood Glucose 99 H Arterial Blood Ionized Calcium Salicylates Acetaminophen 07/13/20 07/13/20 07/13/20 03:33 09:50 09:50 Hct MCV RDW 17.7 H Plt Count 135 L Lymph % (Auto) [place] % (Auto) Lymph # (Auto) [place] # (Auto) Seg Neutrophils % Seg Neuts % (Manual) 96.0 H Lymphocytes % (Manual) 3.0 L Nucleated RBC % Seg Neutrophils # Lymphocytes # (Manual) 0.2 L PT INR D-Dimer ABG pH 7.462 H POC ABG pCO2 POC ABG pO2 69.1 L ABG pO2 ABG HCO3 ABG O2 Saturation ABG Base Excess ABG Hemoglobin ABG Sodium ABG Glucose 125 H Oxyhemoglobin Potassium Chloride Carbon Dioxide 33 H BUN 18 H Creatinine 0.3 L Glucose 157 H POC Glucose Calcium Lactate Dehydrogenase Troponin T C-Reactive Protein NT-Pro-B Natriuret Pep Total Protein Albumin LDL Cholesterol Direct TSH Arterial Blood Glucose 125 H Arterial Blood Ionized Calcium Salicylates Acetaminophen 07/13/20 07/13/20 07/13/20 11:52 17:32 22:00 Hct MCV RDW Plt Count Lymph % (Auto) [place] % (Auto) Lymph # (Auto) [place] # (Auto) Seg Neutrophils % Seg Neuts % (Manual) Lymphocytes % (Manual) Nucleated RBC % Seg Neutrophils # Lymphocytes # (Manual) PT INR D-Dimer ABG pH POC ABG pCO2 50.3 H POC ABG pO2 ABG pO2 ABG HCO3 ABG O2 Saturation ABG Base Excess ABG Hemoglobin 11.4 L ABG Sodium ABG Glucose 128 H Oxyhemoglobin Potassium Chloride Carbon Dioxide BUN Creatinine Glucose POC Glucose 139 H 119 H Calcium Lactate Dehydrogenase Troponin T C-Reactive Protein NT-Pro-B Natriuret Pep Total Protein Albumin LDL Cholesterol Direct TSH Arterial Blood Glucose 128 H Arterial Blood Ionized Calcium Salicylates Acetaminophen 07/14/20 07/14/20 07/14/20 04:05 11:48 23:22 Hct MCV RDW Plt Count Lymph % (Auto) [place] % (Auto) Lymph # (Auto) [place] # (Auto) Seg Neutrophils % Seg Neuts % (Manual) Lymphocytes % (Manual) Nucleated RBC % Seg Neutrophils # Lymphocytes # (Manual) PT INR D-Dimer ABG pH POC ABG pCO2 POC ABG pO2 ABG pO2 69.1 L ABG HCO3 31.8 H ABG O2 Saturation 94.8 L ABG Base Excess 6.6 H ABG Hemoglobin 11.7 L ABG Sodium ABG Glucose Oxyhemoglobin 93.0 L Potassium Chloride Carbon Dioxide BUN Creatinine Glucose POC Glucose 174 H 117 H Calcium Lactate Dehydrogenase Troponin T C-Reactive Protein NT-Pro-B Natriuret Pep Total Protein Albumin LDL Cholesterol Direct TSH Arterial Blood Glucose Arterial Blood Ionized Calcium Salicylates Acetaminophen 07/15/20 04:57 Hct MCV RDW Plt Count Lymph % (Auto) [place] % (Auto) Lymph # (Auto) [place] # (Auto) Seg Neutrophils % Seg Neuts % (Manual) Lymphocytes % (Manual) Nucleated RBC % Seg Neutrophils # Lymphocytes # (Manual) PT INR D-Dimer ABG pH POC ABG pCO2 POC ABG pO2 ABG pO2 ABG HCO3 ABG O2 Saturation ABG Base Excess ABG Hemoglobin ABG Sodium ABG Glucose Oxyhemoglobin Potassium Chloride Carbon Dioxide BUN Creatinine Glucose POC Glucose 159 H Calcium Lactate Dehydrogenase Troponin T C-Reactive Protein NT-Pro-B Natriuret Pep Total Protein Albumin LDL Cholesterol Direct TSH Arterial Blood Glucose Arterial Blood Ionized Calcium Salicylates Acetaminophen Chest x-ray: pending Allied health notes reviewed: nursing
--- NOTE | 2020-07-15 11:46 | Progress Note ---
Subjective Date of service: 07/15/20 Principal diagnosis: Ac and ch hypoxic & hypercapnic resp failure; AE-COPD; Tobacco use disorder Interval history: Assessment and Plan - Patient Problems (1) Respiratory failure Current Visit: Yes Status: Acute Plan to address problem: Continue supportive management, conservative cardiac management as previously outlined. (2) Paroxysmal atrial fibrillation Current Visit: Yes Status: Acute Plan to address problem: Optimize medical therapy for paroxysmal atrial fibrillation.Now in sinus, sinus avtar Subjective Date of service: 07/15/20 Principal diagnosis: Ac and ch hypoxic & hypercapnic resp failure; AE-COPD; Tobacco use disorder Interval history: Patient is sedated, on the vent. On glass vial bending conveyor feeder, currently sinus bradyc ardia No new recommendations today Objective Vital Signs Temp Pulse Pulse Resp BP Pulse Ox 07/15/20 11:05 55 L 101/52 94 07/15/20 11:00 55 L 21 101/52 95 07/15/20 10:45 54 L 18 96/48 96 07/15/20 10:30 55 L 20 96/48 96 07/15/20 10:15 57 L 18 103/52 96 07/15/20 10:00 56 L 20 113/55 96 07/15/20 09:45 63 21 113/55 97 07/15/20 09:30 50 L 19 113/55 96 07/15/20 09:15 51 L 17 111/53 96 07/15/20 09:00 49 L 18 111/53 96 07/15/20 08:45 51 L 18 107/51 96 07/15/20 08:30 54 L 19 107/51 96 07/15/20 08:15 55 L 19 120/63 96 07/15/20 08:00 98.3 F 70 108 H 23 120/63 95 07/15/20 07:58 76 119/69 96 07/15/20 07:45 59 L 21 119/69 95 07/15/20 07:31 77 24 119/69 95 07/15/20 07:15 62 20 142/64 94 07/15/20 07:00 76 23 142/64 94 07/15/20 06:45 88 23 147/69 95 07/15/20 06:30 102 H 23 147/69 95 07/15/20 06:15 91 H 23 132/73 96 07/15/20 06:00 90 23 132/73 96 07/15/20 05:45 102 H 23 136/83 95 07/15/20 05:30 99 H 22 136/83 96 07/15/20 05:15 103 H 23 145/95 95 07/15/20 05:02 102 H 145/95 07/15/20 05:00 102 H 22 145/95 95 07/15/20 04:45 103 H 27 H 136/87 95 07/15/20 04:31 138 H 19 136/87 93 07/15/20 04:15 99 H 25 H 147/92 94 07/15/20 04:00 97.8 F 108 H 108 H 24 147/92 93 07/15/20 03:45 100 H 23 137/82 94 07/15/20 03:30 104 H 26 H 137/82 93 07/15/20 03:15 105 H 21 129/81 94 07/15/20 03:00 111 H 22 129/81 94 07/15/20 02:45 106 H 22 125/84 95 07/15/20 02:30 108 H 22 125/84 94 07/15/20 02:15 112 H 23 139/80 94 07/15/20 02:00 115 H 24 139/80 94 07/15/20 01:45 120 H 24 97/46 94 07/15/20 01:31 109 H 23 131/80 94 07/15/20 01:15 56 L 17 100/49 96 07/15/20 01:00 57 L 19 97/46 96 07/15/20 00:45 56 L 19 100/49 96 07/15/20 00:30 55 L 18 100/49 95 07/15/20 00:15 52 L 18 109/54 95 07/15/20 00:00 52 L 56 L 17 109/54 96 07/14/20 23:45 52 L 17 115/60 96 07/14/20 23:44 98.6 F 07/14/20 23:30 53 L 17 115/60 96 07/14/20 23:23 58 L 110/56 07/14/20 23:15 54 L 16 110/56 96 07/14/20 23:00 56 L 18 110/56 96 07/14/20 22:45 59 L 18 109/61 95 07/14/20 22:30 73 19 109/61 95 07/14/20 22:15 83 21 114/65 95 07/14/20 22:01 105 H 29 H 114/65 94 07/14/20 21:45 107 H 23 151/81 94 07/14/20 21:30 122 H 22 151/81 92 07/14/20 21:15 120 H 25 H 151/90 91 07/14/20 21:00 108 H 24 151/90 93 07/14/20 20:45 106 H 25 H 146/85 93 07/14/20 20:30 104 H 23 146/85 93 07/14/20 20:16 109 H 142/93 91 07/14/20 20:15 107 H 23 157/92 90 07/14/20 20:00 97.5 F L 110 H 109 H 22 142/93 94 07/14/20 19:45 112 H 23 157/92 87 07/14/20 19:30 116 H 24 157/92 84 07/14/20 19:15 118 H 22 155/99 84 07/14/20 19:00 119 H 24 155/99 87 07/14/20 18:45 118 H 24 160/100 91 07/14/20 18:42 120 H 160/100 07/14/20 18:30 118 H 22 160/100 91 07/14/20 18:15 116 H 23 148/96 88 07/14/20 18:00 117 H 21 139/102 88 07/14/20 17:45 119 H 23 148/96 89 07/14/20 17:30 111 H 23 148/96 91 07/14/20 17:15 103 H 23 142/87 92 07/14/20 17:09 108 H 22 142/87 92 07/14/20 17:00 142/87 92 07/14/20 16:45 92 07/14/20 16:30 136/82 91 07/14/20 16:15 141/88 95 07/14/20 16:01 141/88 84 07/14/20 16:00 117 H 91 07/14/20 15:45 57 L 12 95 07/14/20 15:41 56 L 114/61 95 07/14/20 15:30 57 L 12 114/61 95 07/14/20 15:24 60 104/56 07/14/20 15:15 59 L 12 104/56 95 11/25/20 15:00 61 11 L 104/56 94 07/14/20 14:45 63 12 103/53 94 07/14/20 14:30 64 12 103/53 94 07/14/20 14:15 66 12 101/54 94 07/14/20 14:00 98.7 F 67 12 101/54 93 07/14/20 13:45 66 13 118/65 92 07/14/20 13:30 73 12 120/65 93 07/14/20 13:15 112 H 20 118/65 94 07/14/20 13:00 91 H 13 118/65 93 07/14/20 12:45 95 H 13 107/62 93 07/14/20 12:40 105 H 107/62 94 07/14/20 12:30 94 H 14 107/62 95 07/14/20 12:15 100 H 14 123/71 95 07/14/20 12:00 109 H 117 H 16 122/73 95 07/14/20 11:45 118 H 20 123/71 94 - Physical Examination General: Other (intubated on the vent) HEENT: Positive: PERRL Neck: Positive: neck supple Cardiac: Positive: Reg Rate and Rhythm, S1/S2 Lungs: Positive: clear to auscultation Neuro: Positive: Weakness (Unresponsive, on the vent) Abdomen: Positive: Soft Skin: Positive: Clear Extremities: Absent: edema - Allied health notes Allied health notes reviewed: RT
--- NOTE | 2020-07-15 12:46 | Progress Note ---
Assessment and Plan Assessment and plan: Patient is a 59-year-old female who [place] [facility] the emergency room [facility] today with changes in mental status and generalized weakness. Most of the history was gotten from the emergency room staff as patient is unable to give any history at this time. Patient is currently intubated. Patient was brought to the emergency room by EMS and was initially on nonrebreather, she was hypoxic, blood pressure systolic was in the 80s and 90s and was unable to protect her airway and therefore subsequently intubated. Work-up in the emergency room today, chest x-ray did not reveal any significant abnormality. Labs shows elevated troponin. CTA of the chest reveals:1. No CT evidence for pulmonary embolism. 2. Bibasilar consolidation with associated tiny bilateral pleural effusions that could be due to pneumonia, aspiration, or atelectasis. 3. Additional diffuse interlobular septal thickening suggest a component of interstitial pulmonary edema. CT scan of the head reveals: Small 1 cm parenchymal hemorrhage in the left parietal juxtacortical region. Patient has been placed on empiric IV antibiotics for possible underlying pneumonia versus Covid. Neurosurgeon has also been consulted for evaluation of the findings on CT scan of the head. Acute and chronic hypoxic and hypercapnic respiratory failure Acute metabolic encephalopathy Intracranial hemorrhage incidental finding: No intervention at this time Right ICA stenosis: No intervention at this time Acute exacerbation of COPD Tobacco use disorder/Nicotine dependence (on going) Hypernatremia History of coronary artery disease/CHF History of HTN Chronic narcotic dependence Chronic back pain Anxiety disorder History of depression; Obesity; BMI 32.2 Suspected 2019 novel coronavirus: Tested negative 07/07/2020; patient was evaluated by ID and IV antibiotics discontinued. Pulmonary critical care is following. Neurosurgeon consulted in the emergency department and will follow the patient. Patient is still intubated and sedated and on mechanical ventilation, patient is still in the ED and will be transferred to ICU. Patient had episode of hypoglycemia yesterday and was treated according to hypoglycemia protocol. Patient was evaluated by cardiology for history paroxysmal A. fib and patient is not a candidate for anticoagulation because of anemia. 07/07/2020; patient has hypotension yesterday and requiring pressors and that evaluated and started her on IV cefepime and vancomycin. Patient has been fo llowed with Dr Valles and Dr. marx before. 07/09/2020; patient has hypertension and on pressors, on IV cefepime and vancomycin. Patient was seen by neurosurgery and recommend MRI once patient is stable. No neurosurgical intervention is needed. 07/10/2020: patient is pressors, on IV cefepime day 3/5. Patient was seen by neurosurgery and recommend MRI once patient is stable. No neurosurgical in tervention is needed. Pulmonary is following for vent management. 07/11/2020; patient is off pressors, on IV cefepime day 3/5. Patient was seen by neurosurgery and recommend MRI once patient is stable. No neurosurgical intervention is needed. Pulmonary is following for vent management. 07/12: No clinically changes, continue with current management,. remains on sedation, awaiting MRI. Patient remains a full code. 07/13: No new changes, will repeat Labs, wean vent as tolerated. Attempt to re ach family 07/14: Patient remains unresponsive. Continue to await MR brain. Continue weaning from the ventilator. ID has discontinued abx and signed off. Wean sedatives. No seizure epsidoe reported. 07/15: Continue supportive care wean sedation as tolerated. Monitor for any seizure activity. Cardiology input noted. The high probability of a clinically significant, sudden or life threatening deterioration of the [respiratory, neurology] system(s) required my full and direct attention, intervention and personal management. The aggregate critical care time was [35] minutes. This time is in addition to time spent performing reported procedures but includes the following: [x] Data Review and interpretation [x] Patient assessment and monitoring of vital signs [x] Documentation [x] Medication orders and management History Interval history: Patient seen and examined remains on full ventilatory support, agitated ove rnight became hypoxic patient's sedation was uptitrated Hospitalist Physical - Physical exam Narrative exam: VITAL SIGNS: Reviewed. GENERAL: The patient appears normally developed, on full ventilatory support vital signs as documented. HEAD: No signs of head trauma. EYES: Pupils are equal. Extraocular motions intact. EARS: UNABLE TO EXAMIN HEARING MOUTH: ETT inplace NECK: No adenopathy, no JVD. CHEST: Chest with clear breath sounds bilaterally. No wheezes, rales, or rhonchi. CARDIAC: Regular rate and rhythm. S1 and S2, without murmurs, gallops, or rubs. VASCULAR: No Edema. Peripheral pulses normal and equal in all extremities. ABDOMEN: Soft, non tender and non distended. No rebound or guarding, and no masses palpated. Bowel Sounds normal. MUSCULOSKELETAL: Extremities without clubbing, cyanosis or edema. NEUROLOGIC EXAM: Sedated PSYCHIATRIC: Sedated SKIN: detail exam as documented in skin assessment intubated and sedated - Constitutional Vitals: Temp Pulse Resp BP Pulse Ox 98.3 F 55 L 21 101/52 94 07/15/20 08:00 07/15/20 11:05 07/15/20 11:00 07/15/20 11:05 07/15/20 11:05 General appearance: Present: other (intubated on the vent) HEART Score - HEART Score Troponin: Troponin T 0.032 ng/mL (0.00-0.029) H 07/05/20 23:06 Results - Labs CBC & Chem 7: 07/13/20 09:50 07/13/20 09:50 Labs: Laboratory Last Values WBC 7.2 K/mm3 (4.5-11.0) 07/13/20 09:50 RBC 4.30 M/mm3 (3.65-5.03) 07/13/20 09:50 Hgb 12.7 gm/dl (10.1-14.3) 07/13/20 09:50 Hct 40.4 % (30.3-42.9) 07/13/20 09:50 MCV 94 fl (79-97) 07/13/20 09:50 MCH 30 pg (28-32) 07/13/20 09:50 MCHC 32 % (30-34) 07/13/20 09:50 RDW 17.7 % (13.2-15.2) H 07/13/20 09:50 Plt Count 135 K/mm3 (140-440) L 07/13/20 09:50 Lymph % (Auto) 7.2 % (13.4-35.0) L 07/06/20 11:09 [place] % (Auto) Cake Knocker 07/07/20 05:15 Eos % (Auto) 0.0 % (0.0-4.3) 07/06/20 11:09 Baso % (Auto) 0.1 % (0.0-1.8) 07/06/20 11:09 Lymph # (Auto) 0.7 K/mm3 (1.2-5.4) L 07/06/20 11:09 [place] # (Auto) 1.1 K/mm3 (0.0-0.8) H 07/06/20 11:09 Eos # (Auto) 0.0 K/mm3 (0.0-0.4) 07/06/20 11:09 Baso # (Auto) 0.0 K/mm3 (0.0-0.1) 07/06/20 11:09 Add Manual Diff Complete 07/13/20 09:50 Total Counted 100 07/13/20 09:50 Seg Neutrophils % Cake Knocker 07/13/20 09:50 Seg Neuts % (Manual) 96.0 % (40.0-70.0) H 07/13/20 09:50 Band Neutrophils % 0 % 07/13/20 09:50 Lymphocytes % (Manual) 3.0 % (13.4-35.0) L 07/13/20 09:50 Reactive Lymphs % (Man) 0 % 07/13/20 09:50 Monocytes % (Manual) 1.0 % (0.0-7.3) 07/13/20 09:50 Eosinophils % (Manual) 0 % (0.0-4.3) 07/13/20 09:50 Basophils % (Manual) 0 % (0.0-1.8) 07/13/20 09:50 Metamyelocytes % 0 % 07/13/20 09:50 Myelocytes % 0 % 07/13/20 09:50 Promyelocytes % 0 % 07/13/20 09:50 Blast Cells % 0 % 07/13/20 09:50 Nucleated RBC % Not Reportable 07/13/20 09:50 Seg Neutrophils # 7.9 K/mm3 (1.8-7.7) H 07/06/20 11:09 Seg Neutrophils # Man 6.9 K/mm3 (1.8-7.7) 07/13/20 09:50 Band Neutrophils # 0.0 K/mm3 07/13/20 09:50 Lymphocytes # (Manual) 0.2 K/mm3 (1.2-5.4) L 07/13/20 09:50 Abs React Lymphs (Man) 0.0 K/mm3 07/13/20 09:50 Monocytes # (Manual) 0.1 K/mm3 (0.0-0.8) 07/13/20 09:50 Eosinophils # (Manual) 0.0 K/mm3 (0.0-0.4) 07/13/20 09:50 Basophils # (Manual) 0.0 K/mm3 (0.0-0.1) 07/13/20 09:50 Metamyelocytes # 0.0 K/mm3 07/13/20 09:50 Myelocytes # 0.0 K/mm3 07/13/20 09:50 Promyelocytes # 0.0 K/mm3 07/13/20 09:50 Blast Cells # 0.0 K/mm3 07/13/20 09:50 WBC Morphology Not Reportable 07/13/20 09:50 Hypersegmented Neuts Not Reportable 07/13/20 09:50 Hyposegmented Neuts Not Reportable 07/13/20 09:50 Hypogranular Neuts Not Reportable 07/13/20 09:50 Smudge Cells Not Reportable 07/13/20 09:50 Toxic Granulation Not Reportable 07/13/20 09:50 Toxic Vacuolation Not Reportable 07/13/20 09:50 Dohle Bodies Not Reportable 07/13/20 09:50 Pelger-Huet Anomaly Not Reportable 07/13/20 09:50 Marissa Rods Not Reportable 07/13/20 09:50 Platelet Estimate Consistent w auto 07/13/20 09:50 Clumped Platelets Not Reportable 07/13/20 09:50 Plt Clumps, EDTA Not Reportable 07/13/20 09:50 Large Platelets Not Reportable 07/13/20 09:50 Giant Platelets Not Reportable 07/13/20 09:50 Platelet Satelliting Not Reportable 07/13/20 09:50 Plt Morphology Comment Not Reportable 07/13/20 09:50 RBC Morphology Normal 07/13/20 09:50 Dimorphic RBCs Not Reportable 07/13/20 09:50 Polychromasia Not Reportable 07/13/20 09:50 Hypochromasia Not Reportable 07/13/20 09:50 Poikilocytosis Not Reportable 07/13/20 09:50 Anisocytosis Not Reportable 07/13/20 09:50 Microcytosis Not Reportable 07/13/20 09:50 Macrocytosis Not Reportable 07/13/20 09:50 Spherocytes Not Reportable 07/13/20 09:50 Pappenheimer Bodies Not Reportable 07/13/20 09:50 Sickle Cells Not Reportable 07/13/20 09:50 Target Cells Not Reportable 07/13/20 09:50 Tear Drop Cells Not Reportable 07/13/20 09:50 Ovalocytes Not Reportable 07/13/20 09:50 Helmet Cells Not Reportable 07/13/20 09:50 [place] Bodies Not Reportable 07/13/20 09:50 [place] Rings Not Reportable 07/13/20 09:50 [place] Cells Not Reportable 07/13/20 09:50 Bite Cells Not Reportable 07/13/20 09:50 Crenated Cell Not Reportable 07/13/20 09:50 Elliptocytes Not Reportable 07/13/20 09:50 Acanthocytes (Spur) Not Reportable 07/13/20 09:50 Rouleaux Not Reportable 07/13/20 09:50 Hemoglobin C Crystals Not Reportable 07/13/20 09:50 Schistocytes Not Reportable 07/13/20 09:50 Malaria parasites Not Reportable 07/13/20 09:50 Ab Bodies Not Reportable 07/13/20 09:50 Hem Pathologist Commnt No 07/13/20 09:50 PT 14.5 Sec. (12.2-14.9) 07/07/20 05:15 INR 1.12 (0.87-1.13) 07/07/20 05:15 APTT 30.8 Sec. (24.2-36.6) 07/05/20 23:06 D-Dimer 1298.20 ng/mlDDU (0-234) H 07/05/20 23:06 ABG pH 7.434 pH Units (7.350-7.450) 07/14/20 04:05 POC ABG pCO2 50.3 mmHg (32.0-48.0) H 07/13/20 22:00 ABG pCO2 48.5 mm Hg 07/14/20 04:05 POC ABG pO2 69.1 mmHg (83-108) L 07/13/20 03:33 ABG pO2 69.1 mm Hg (80.0-90.0) L 07/14/20 04:05 POC ABG HCO3 29.0 07/13/20 22:00 ABG HCO3 31.8 mmol/L (20.0-26.0) H 07/14/20 04:05 ABG O2 Saturation 94.8 % (95.0-99.0) L 07/14/20 04:05 ABG O2 Content 15.3 (0.0-44) 07/14/20 04:05 POC ABG Base Excess 3.0 07/13/20 22:00 ABG Base Excess 6.6 mmol/L (-2.0-3.0) H 07/14/20 04:05 ABG Hemoglobin 11.7 gm/dl (12.0-16.0) L 07/14/20 04:05 ABG Carboxyhemoglobin 1.5 % (0.0-5.0) 07/14/20 04:05 ABG Methemoglobin 0.4 % (0.0-1.5) 07/14/20 04:05 ABG Sodium 137.5 mmol/L (136.0-145.0) 07/13/20 22:00 ABG Potassium 4.1 mmol/L (3.40-4.50) 07/13/20 22:00 ABG Chloride 103.0 mmol/L (98-107) 07/13/20 22:00 ABG Glucose 128 mg/dL (65-95) H 07/13/20 22:00 Oxyhemoglobin 93.0 % (95.0-99.0) L 07/14/20 04:05 FiO2 40 % 07/14/20 04:05 Sodium 140 mmol/L (137-145) 07/13/20 09:50 Potassium 4.0 mmol/L (3.6-5.0) 07/13/20 09:50 Chloride 102.2 mmol/L (98-107) 07/13/20 09:50 Carbon Dioxide 33 mmol/L (22-30) H 07/13/20 09:50 Anion Gap 9 mmol/L 07/13/20 09:50 BUN 18 mg/dL (7-17) H 07/13/20 09:50 Creatinine 0.3 mg/dL (0.6-1.2) L 07/13/20 09:50 Estimated GFR > 60 ml/min 07/13/20 09:50 BUN/Creatinine Ratio 60 % 07/13/20 09:50 Glucose 157 mg/dL (65-100) H 07/13/20 09:50 POC Glucose 170 mg/dL (70-105) H 07/15/20 12:12 Lactic Acid 0.80 mmol/L (0.7-2.0) 07/05/20 23:06 Calcium 8.8 mg/dL (8.4-10.2) 07/13/20 09:50 Magnesium 2.00 mg/dL (1.7-2.3) 07/05/20 23:06 Ferritin 60.8 ng/mL (10.0-200.0) 07/05/20 23:06 Total Bilirubin 0.30 mg/dL (0.1-1.2) 07/06/20 Unknown AST 13 units/L (5-40) 07/06/20 Unknown ALT 10 units/L (7-56) 07/06/20 Unknown Alkaline Phosphatase 71 units/L (35-129) 07/06/20 Unknown Ammonia 40.0 umol/L (25-60) 07/05/20 23:06 Lactate Dehydrogenase 217 units/L (91-180) H 07/05/20 23:06 Lactate Dehydrogenase 217 units/L (91-180) H 07/05/20 23:06 Total Creatine Kinase 55 units/L (30-135) 07/05/20 23:06 Troponin T 0.032 ng/mL (0.00-0.029) H 07/05/20 23:06 C-Reactive Protein 1.60 mg/dL (0.00-1.30) H 07/05/20 23:06 C-Reactive Protein 1.60 mg/dL (0.00-1.30) H 07/05/20 23:06 NT-Pro-B Natriuret Pep 22319 pg/mL (0-900) H 07/06/20 11:09 Total Protein 4.4 g/dL (6.3-8.2) L 07/06/20 Unknown Albumin 2.2 g/dL (3.9-5) L 07/06/20 Unknown Albumin/Globulin Ratio 1.0 % 07/06/20 Unknown Triglycerides 126 mg/dL (2-149) 07/05/20 23:06 Cholesterol 109 mg/dL (50-199) 07/05/20 23:06 LDL Cholesterol Direct 43 mg/dL (50-130) L 07/05/20 23:06 HDL Cholesterol 42 mg/dL (40-59) 07/05/20 23:06 Cholesterol/HDL Ratio 2.59 % 07/05/20 23:06 Procalcitonin < 0.05 ng/mL (<0.15) 07/05/20 23:06 TSH 15.130 mlU/mL (0.270-4.200) H 07/05/20 23:06 Free T4 0.79 ng/dL (0.76-1.46) 07/06/20 11:09 Arterial Blood Glucose 128 mg/dL (65-95) H 07/13/20 22:00 Arterial Blood Ionized Calcium 4.9 mg/dL (4.6-5.3) 07/13/20 22:00 Urine Color Mildred (Yellow) 07/05/20 Unknown Urine Turbidity Clear (Clear) 07/05/20 Unknown Urine pH 5.0 (5.0-7.0) 07/05/20 Unknown Ur Specific [place] 1.025 (1.003-1.030) 07/05/20 Unknown Urine Protein 30 mg/dl mg/dL (Negative) 07/05/20 Unknown Urine Glucose (UA) Neg mg/dL (Negative) 07/05/20 Unknown Urine Ketones Neg mg/dL (Negative) 07/05/20 Unknown Urine Blood Neg (Negative) 07/05/20 Unknown Urine Nitrite Neg (Negative) 07/05/20 Unknown Urine Bilirubin Neg (Negative) 07/05/20 Unknown Urine Urobilinogen 4.0 mg/dL (<2.0) 07/05/20 Unknown Ur Leukocyte Esterase Neg (Negative) 07/05/20 Unknown Urine WBC (Auto) 2.0 /HPF (0.0-6.0) 07/05/20 Unknown Urine RBC (Auto) 1.0 /HPF (0.0-6.0) 07/05/20 Unknown U Epithel Cells (Auto) 1.0 /HPF (0-13.0) 07/05/20 Unknown Hyaline Casts 16 /LPF 07/05/20 Unknown Urine Mucus Few /HPF 07/05/20 Unknown Salicylates < 0.3 mg/dL (2.8-20.0) L 07/05/20 23:06 Acetaminophen < 5.0 ug/mL (10.0-30.0) L 07/05/20 23:06 Plasma/Serum Alcohol < 0.01 % (0-0.07) 07/05/20 23:06 Coronavirus (PCR) Negative (Negative) 07/06/20 Unknown Blood Type O POSITIVE 07/05/20 23:10 Antibody Screen Negative 07/05/20 23:10 Roberts/IV: Voiding Method External Female Catheter IV Catheter Type [Right Upper PICC Line arm] IV Catheter Type [Right INT / Saline Lock External Jugular] IV Catheter Type [Left Triple Lumen Cath Internal Jugular] Active Medications - Current Medications Current Medications: Generic Name Dose Route Start Last Admin Trade Name Freq PRN Reason Stop Dose Admin Acetaminophen 650 mg 07/06/20 02:44 Tylenol FL Q4H PRN Pain, Mild (1-3) Lipase/Protease/Amylase 1 each 07/08/20 14:[address] 10,500 Unit FEEDTUBE PRN PRN For Clogged Feeding Tube Bisacodyl 10 mg 07/06/20 02:44 Dulcolax FL QDAY PRN Constipation unrelieved by MOM Dextrose 0 ml 07/06/20 19:30 07/06/20 19:25 D50w (25gm) Syringe IV 30 ml ONCE PRN Administration Hypoglycemia Diltiazem HCl 60 mg 07/14/20 14:00 07/15/20 05:02 Cardizem PO 60 mg Q6HR LUZ MARIA Administration Famotidine 20 mg 07/09/20 10:00 07/15/20 09:34 Pepcid PO 20 mg BID LUZ MARIA Administration Hydralazine HCl 5 mg 07/06/20 02:30 Apresoline IV Q30MIN PRN Hypertension Hydrophilic Ointment 1 applic 07/05/20 22:08 Vaseline Lip Therapy TP Q2HR PRN Dry Lips Norepinephrine 4 mg in 250 mls @ 7.5 mls/hr 07/06/20 22:00 07/11/20 08:50 Levophed Drip 4 Mg/Ns 250 Ml IV 0 mcg/min TITR LUZ MARIA 0 mls/hr Titration Protocol 2 MCG/MIN Midazolam HCl 100 mg/ Sodium 100 mls @ 2 mls/hr 07/10/20 13:30 07/15/20 08:34 Chloride IV 3 mg/hr TITR LUZ MARIA 3 mls/hr Titration Protocol 2 MG/HR Dexmedetomidine HCl 200 mcg/ 50 mls @ 3.561 mls/hr 07/14/20 14:00 07/15/20 11:49 Sodium Chloride IV 0.2 mcg/kg/hr TITRATE LUZ MARIA 3.561 mls/hr Administration Protocol 0.2 MCG/KG/HR Magnesium Hydroxide 30 ml 07/14/20 12:06 Milk Of Magnesia PO Q4H PRN Constipation Methylprednisolone Sodium Succinate 60 mg 07/08/20 22:00 07/15/20 05:02 Solu-Medrol IV 60 mg Q8HR LUZ MARIA Administration Metoprolol Tartrate 5 mg 07/14/20 13:20 Metoprolol IV Q6HR PRN HR >120 Midazolam HCl 2 mg 07/10/20 12:56 Versed IV Q10MIN PRN Sedation Morphine Sulfate 2 mg 07/06/20 02:44 07/14/20 18:43 Morphine IV 2 mg Q4H PRN Administration Pain, Moderate (4-6) Multi-Ingred Cream/Lotion/Oil/Oint 1 applic 07/05/20 22:08 Artificial Tears Ophth Oint OU Q4HR PRN Dry Eye(s) Ondansetron HCl 4 mg 07/06/20 02:44 Zofran IV Q8H PRN N/V unrelieved by Live Quetiapine Fumarate 300 mg 07/10/20 14:00 07/15/20 09:34 Seroquel PO 300 mg BID LUZ MARIA Administration Simple Syrup 15 ml 07/08/20 14:30 Simple Syrup FEEDTUBE PRN PRN Hypoglycemia Simple Syrup 30 ml 07/08/20 14:30 Simple Syrup FEEDTUBE PRN PRN Hypoglycemia Sodium Bicarbonate 325 mg 07/08/20 14:30 Sodium Bicarbonate FEEDTUBE PRN PRN For Clogged Feeding Tube Sodium Chloride 10 ml 07/06/20 10:00 07/15/20 09:35 Sodium Chloride Flush Syringe 10 Ml IV 10 ml BID LUZ MARIA Administration Sodium Chloride 10 ml 07/06/20 02:44 Sodium Chloride Flush Syringe 10 Ml IV PRN PRN LINE FLUSH Nutrition/Malnutrition Assess - Dietary Evaluation Nutrition/Malnutrition Findings: Nutrition Notes Start: 07/06/20 09:30 Freq: Status: Active Protocol: Document 07/14/20 12:42 LP (Rec: 07/14/20 12:44 LP [id number]) Nutrition Notes Initial or Follow up Reassessment Current Diagnosis COPD,Heart Failure,Respiratory Failure Other Pertinent Diagnosis Acute enephalopathy, COVID-19 negative, Intracranial hemorrhage Current Diet Promote at 60ml/hr Labs/Tests Reviewed Pertinent Medications Reviewed Height 5 ft Weight 71.214 kg Call Body Weight (kg) 45.45 BMI 30.7 Weight Status Obese Subjective/Other Information Pt tolerating Promote at 60ml/ hr (goal rate). Percent of energy/protein needs met: 99%/99% Burn Absent Trauma Absent Food Allergy No Current % PO Negligible Minimum of two criteria No physical signs of malnutrition #1 Nutrition Diagnosis Inadequate oral intake Diagnosis Progress(for reassessment Continues documentation) Is patient on ventilator? Yes Is Patient Ambulatory and/or Out of Bed No REE-([facility]-confined to bed) 0600.545 Calculation Used for Recommendations [facility] Additional Notes Protein: >2 g/kg IBW: >91g Fluid: 1 ml/kcal Nutrition Intervention Change Diet Order: TF Nutrition Support: Promote 1.0 at 60 ml/hr (goal rate) Flush 50ml q4h Kcal 1,440 Protein (gm) 90 Fluid (mL) 1,208 Goal #1 Meet at least 80% of kcal and protein needs via TF Anticipated Discharge Needs: Unable to determine at this time Follow-Up By: 07/21/20 Additional Comments Follow for stable TF and labs
[2020-07-15] MEDS: QUEtiapine 200 MG TAB PO SCH (22:22)
[2020-07-16] MEDS: methylPREDNISolone Sod Succinate 125 MG/2 ML INJ IV SCH ×3 (05:16→21:11)
[2020-07-16] MEDS: dilTIAZem 60 MG TAB PO SCH ×4 (05:16→23:22)
--- NOTE | 2020-07-16 07:43 | Progress Note ---
Assessment and Plan Assessment and plan: Patient is a 59-year-old female who presents to the emergency room from a local assisted today with changes in mental status and generalized weakness. Most of the history was gotten from the emergency room staff as patient is unable to give any history at this time. Patient is currently intubated. Patient was brought to the emergency room by EMS and was initially on nonrebreather, she was hypoxic, blood pressure systolic was in the 80s and 90s and was unable to protect her airway and therefore subsequently intubated. Work-up in the emergency room today, chest x-ray did not reveal any significant abnormality. Labs shows elevated troponin. CTA of the chest reveals:1. No CT evidence for pulmonary embolism. 2. Bibasilar consolidation with associated tiny bilateral pleural effusions that could be due to pneumonia, aspiration, or atelectasis. 3. Additional diffuse interlobular septal thickening suggest a component of interstitial pulmonary edema. CT scan of the head reveals: Small 1 cm parenchymal hemorrhage in the left parietal juxtacortical region. Patient has been placed on empiric IV antibiotics for possible underlying pneumonia versus Covid. Neurosurgeon has also been consulted for evaluation of the findings on CT scan of the head. Acute and chronic hypoxic and hypercapnic respiratory failure Acute metabolic encephalopathy Intracranial hemorrhage incidental finding: No intervention at this time Right ICA stenosis: No intervention at this time Acute exacerbation of COPD Tobacco use disorder/Nicotine dependence (on going) Hypernatremia History of coronary artery disease/CHF History of HTN Chronic narcotic dependence Chronic back pain Anxiety disorder History of depression; Obesity; BMI 32.2 Suspected 2019 novel coronavirus: Tested negative 07/07/2020; patient was evaluated by ID and IV antibiotics discontinued. Pulmonary critical care is following. Neurosurgeon consulted in the emergency department and will follow the patient. Patient is still intubated and sedated and on mechanical ventilation, patient is still in the ED and will be transferred to ICU. Patient had episode of hypoglycemia yesterday and was treated according to hypoglycemia protocol. Patient was evaluated by cardiology for history paroxysmal A. fib and patient is not a candidate for anticoagulation because of anemia. 07/07/2020; patient has hypotension yesterday and requiring pressors and that evaluated and started her on IV cefepime and vancomycin. Patient has been fo llowed with Dr Valles and Dr. marx before. 07/09/2020; patient has hypertension and on pressors, on IV cefepime and vancomycin. Patient was seen by neurosurgery and recommend MRI once patient is stable. No neurosurgical intervention is needed. 07/10/2020: patient is pressors, on IV cefepime day 3/5. Patient was seen by neurosurgery and recommend MRI once patient is stable. No neurosurgical in tervention is needed. Pulmonary is following for vent management. 07/11/2020; patient is off pressors, on IV cefepime day 3/5. Patient was seen by neurosurgery and recommend MRI once patient is stable. No neurosurgical intervention is needed. Pulmonary is following for vent management. 07/12: No clinically changes, continue with current management,. remains on sedation, awaiting MRI. Patient remains a full code. 07/13: No new changes, will repeat Labs, wean vent as tolerated. Attempt to re ach family 07/14: Patient remains unresponsive. Continue to await MR brain. Continue weaning from the ventilator. ID has discontinued abx and signed off. Wean sedatives. No seizure epsidoe reported. 07/15: Continue supportive care wean sedation as tolerated. Monitor for any seizure activity. Cardiology input noted. 07/16: Wean sedation as tolerated, patient cardizem 60 mg by NG tube every 6 hours, and IV metoprolol 5 mg as needed for heart rate control. With regards to anticoagulation, she has previously been regarded a poor risk for long-term oral anticoagulation due to chronic anemia. her mental status appears to be improved this am, will continue vent weaning, still awaiting MRI and unsure why it has not yet been done. The high probability of a clinically significant, sudden or life threatening deterioration of the [respiratory, neurology] system(s) required my full and direct attention, intervention and personal management. The aggregate critical care time was [35] minutes. This time is in addition to time spent performing reported procedures but includes the following: [x] Data Review and interpretation [x] Patient assessment and monitoring of vital signs [x] Documentation [x] Medication orders and management History Interval history: Patient seen and examined remains on full ventilatory support, awake this morning, following commands, no agitation noted overnight Hospitalist Physical - Physical exam Narrative exam: VITAL SIGNS: Reviewed. GENERAL: The patient appears normally developed, on full ventilatory support vital signs as documented. HEAD: No signs of head trauma. EYES: Pupils are equal. Extraocular motions intact. EARS: hearing intact MOUTH: ETT inplace NECK: No adenopathy, no JVD. CHEST: Chest with clear breath sounds bilaterally. No wheezes, rales, or rhonchi. CARDIAC: Regular rate and rhythm. S1 and S2, without murmurs, gallops, or rubs. VASCULAR: Generalized Edema. Peripheral pulses normal and equal in all extremities. ABDOMEN: Soft, non tender and non distended. No rebound or guarding, and no masses palpated. Bowel Sounds normal. MUSCULOSKELETAL: Extremities without clubbing, cyanosis. +2 pitting edema. NEUROLOGIC EXAM: following commands PSYCHIATRIC: Sedated SKIN: detail exam as documented in skin assessment intubated and sedated - Constitutional Vitals: Temp Pulse Resp BP Pulse Ox 99.4 F 89 20 128/74 96 07/16/20 02:57 07/16/20 06:16 07/16/20 06:16 07/16/20 06:16 07/16/20 06:16 General appearance: Present: other (intubated on the vent) HEART Score - HEART Score Troponin: Troponin T 0.032 ng/mL (0.00-0.029) H 07/05/20 23:06 Results - Labs CBC & Chem 7: 07/13/20 09:50 07/13/20 09:50 Labs: Laboratory Last Values WBC 7.2 K/mm3 (4.5-11.0) 07/13/20 09:50 RBC 4.30 M/mm3 (3.65-5.03) 07/13/20 09:50 Hgb 12.7 gm/dl (10.1-14.3) 07/13/20 09:50 Hct 40.4 % (30.3-42.9) 07/13/20 09:50 MCV 94 fl (79-97) 07/13/20 09:50 MCH 30 pg (28-32) 07/13/20 09:50 MCHC 32 % (30-34) 07/13/20 09:50 RDW 17.7 % (13.2-15.2) H 07/13/20 09:50 Plt Count 135 K/mm3 (140-440) L 07/13/20 09:50 Lymph % (Auto) 7.2 % (13.4-35.0) L 07/06/20 11:09 Coffey % (Auto) [employer] 07/07/20 05:15 Eos % (Auto) 0.0 % (0.0-4.3) 07/06/20 11:09 Baso % (Auto) 0.1 % (0.0-1.8) 07/06/20 11:09 Lymph # (Auto) 0.7 K/mm3 (1.2-5.4) L 07/06/20 11:09 Coffey # (Auto) 1.1 K/mm3 (0.0-0.8) H 07/06/20 11:09 Eos # (Auto) 0.0 K/mm3 (0.0-0.4) 07/06/20 11:09 Baso # (Auto) 0.0 K/mm3 (0.0-0.1) 07/06/20 11:09 Add Manual Diff Complete 07/13/20 09:50 Total Counted 100 07/13/20 09:50 Seg Neutrophils % Apparel [employer] Digitizer 07/13/20 09:50 Seg Neuts % (Manual) 96.0 % (40.0-70.0) H 07/13/20 09:50 Band Neutrophils % 0 % 07/13/20 09:50 Lymphocytes % (Manual) 3.0 % (13.4-35.0) L 07/13/20 09:50 Reactive Lymphs % (Man) 0 % 07/13/20 09:50 Monocytes % (Manual) 1.0 % (0.0-7.3) 07/13/20 09:50 Eosinophils % (Manual) 0 % (0.0-4.3) 07/13/20 09:50 Basophils % (Manual) 0 % (0.0-1.8) 07/13/20 09:50 Metamyelocytes % 0 % 07/13/20 09:50 Myelocytes % 0 % 07/13/20 09:50 Promyelocytes % 0 % 07/13/20 09:50 Blast Cells % 0 % 07/13/20 09:50 Nucleated RBC % Not Reportable 07/13/20 09:50 Seg Neutrophils # 7.9 K/mm3 (1.8-7.7) H 07/06/20 11:09 Seg Neutrophils # Man 6.9 K/mm3 (1.8-7.7) 07/13/20 09:50 Band Neutrophils # 0.0 K/mm3 07/13/20 09:50 Lymphocytes # (Manual) 0.2 K/mm3 (1.2-5.4) L 07/13/20 09:50 Abs React Lymphs (Man) 0.0 K/mm3 07/13/20 09:50 Monocytes # (Manual) 0.1 K/mm3 (0.0-0.8) 07/13/20 09:50 Eosinophils # (Manual) 0.0 K/mm3 (0.0-0.4) 07/13/20 09:50 Basophils # (Manual) 0.0 K/mm3 (0.0-0.1) 07/13/20 09:50 Metamyelocytes # 0.0 K/mm3 07/13/20 09:50 Myelocytes # 0.0 K/mm3 07/13/20 09:50 Promyelocytes # 0.0 K/mm3 07/13/20 09:50 Blast Cells # 0.0 K/mm3 07/13/20 09:50 WBC Morphology Not Reportable 07/13/20 09:50 Hypersegmented Neuts Not Reportable 07/13/20 09:50 Hyposegmented Neuts Not Reportable 07/13/20 09:50 Hypogranular Neuts Not Reportable 07/13/20 09:50 Smudge Cells Not Reportable 07/13/20 09:50 Toxic Granulation Not Reportable 07/13/20 09:50 Toxic Vacuolation Not Reportable 07/13/20 09:50 Dohle Bodies Not Reportable 07/13/20 09:50 Pelger-Huet Anomaly Not Reportable 07/13/20 09:50 Marissa Rods Not Reportable 07/13/20 09:50 Platelet Estimate Consistent w auto 07/13/20 09:50 Clumped Platelets Not Reportable 07/13/20 09:50 Plt Clumps, EDTA Not Reportable 07/13/20 09:50 Large Platelets Not Reportable 07/13/20 09:50 Giant Platelets Not Reportable 07/13/20 09:50 Platelet Satelliting Not Reportable 07/13/20 09:50 Plt Morphology Comment Not Reportable 07/13/20 09:50 RBC Morphology Normal 07/13/20 09:50 Dimorphic RBCs Not Reportable 07/13/20 09:50 Polychromasia Not Reportable 07/13/20 09:50 Hypochromasia Not Reportable 07/13/20 09:50 Poikilocytosis Not Reportable 07/13/20 09:50 Anisocytosis Not Reportable 07/13/20 09:50 Microcytosis Not Reportable 07/13/20 09:50 Macrocytosis Not Reportable 07/13/20 09:50 Spherocytes Not Reportable 07/13/20 09:50 Pappenheimer Bodies Not Reportable 07/13/20 09:50 Sickle Cells Not Reportable 07/13/20 09:50 Target Cells Not Reportable 07/13/20 09:50 Tear Drop Cells Not Reportable 07/13/20 09:50 Ovalocytes Not Reportable 07/13/20 09:50 Helmet Cells Not Reportable 07/13/20 09:50 Griggs-Lavon Bodies Not Reportable 07/13/20 09:50 [place] Rings Not Reportable 07/13/20 09:50 [place] Cells Not Reportable 07/13/20 09:50 Bite Cells Not Reportable 07/13/20 09:50 Crenated Cell Not Reportable 07/13/20 09:50 Elliptocytes Not Reportable 07/13/20 09:50 Acanthocytes (Spur) Not Reportable 07/13/20 09:50 Rouleaux Not Reportable 07/13/20 09:50 Hemoglobin C Crystals Not Reportable 07/13/20 09:50 Schistocytes Not Reportable 07/13/20 09:50 Malaria parasites Not Reportable 07/13/20 09:50 Ab Bodies Not Reportable 07/13/20 09:50 Hem Pathologist Commnt No 07/13/20 09:50 PT 14.5 Sec. (12.2-14.9) 07/07/20 05:15 INR 1.12 (0.87-1.13) 07/07/20 05:15 APTT 30.8 Sec. (24.2-36.6) 07/05/20 23:06 D-Dimer 1298.20 ng/mlDDU (0-234) H 07/05/20 23:06 ABG pH 7.434 pH Units (7.350-7.450) 07/14/20 04:05 POC ABG pCO2 50.3 mmHg (32.0-48.0) H 07/13/20 22:00 ABG pCO2 48.5 mm Hg 07/14/20 04:05 POC ABG pO2 69.1 mmHg (83-108) L 07/13/20 03:33 ABG pO2 69.1 mm Hg (80.0-90.0) L 07/14/20 04:05 POC ABG HCO3 29.0 07/13/20 22:00 ABG HCO3 31.8 mmol/L (20.0-26.0) H 07/14/20 04:05 ABG O2 Saturation 94.8 % (95.0-99.0) L 07/14/20 04:05 ABG O2 Content 15.3 (0.0-44) 07/14/20 04:05 POC ABG Base Excess 3.0 07/13/20 22:00 ABG Base Excess 6.6 mmol/L (-2.0-3.0) H 07/14/20 04:05 ABG Hemoglobin 11.7 gm/dl (12.0-16.0) L 07/14/20 04:05 ABG Carboxyhemoglobin 1.5 % (0.0-5.0) 07/14/20 04:05 ABG Methemoglobin 0.4 % (0.0-1.5) 07/14/20 04:05 ABG Sodium 137.5 mmol/L (136.0-145.0) 07/13/20 22:00 ABG Potassium 4.1 mmol/L (3.40-4.50) 07/13/20 22:00 ABG Chloride 103.0 mmol/L (98-107) 07/13/20 22:00 ABG Glucose 128 mg/dL (65-95) H 07/13/20 22:00 Oxyhemoglobin 93.0 % (95.0-99.0) L 07/14/20 04:05 FiO2 40 % 07/14/20 04:05 Sodium 140 mmol/L (137-145) 07/13/20 09:50 Potassium 4.0 mmol/L (3.6-5.0) 07/13/20 09:50 Chloride 102.2 mmol/L (98-107) 07/13/20 09:50 Carbon Dioxide 33 mmol/L (22-30) H 07/13/20 09:50 Anion Gap 9 mmol/L 07/13/20 09:50 BUN 18 mg/dL (7-17) H 07/13/20 09:50 Creatinine 0.3 mg/dL (0.6-1.2) L 07/13/20 09:50 Estimated GFR > 60 ml/min 07/13/20 09:50 BUN/Creatinine Ratio 60 % 07/13/20 09:50 Glucose 157 mg/dL (65-100) H 07/13/20 09:50 POC Glucose 156 mg/dL (70-105) H 07/16/20 05:38 Lactic Acid 0.80 mmol/L (0.7-2.0) 07/05/20 23:06 Calcium 8.8 mg/dL (8.4-10.2) 07/13/20 09:50 Magnesium 2.00 mg/dL (1.7-2.3) 07/05/20 23:06 Ferritin 60.8 ng/mL (10.0-200.0) 07/05/20 23:06 Total Bilirubin 0.30 mg/dL (0.1-1.2) 07/06/20 Unknown AST 13 units/L (5-40) 07/06/20 Unknown ALT 10 units/L (7-56) 07/06/20 Unknown Alkaline Phosphatase 71 units/L (35-129) 07/06/20 Unknown Ammonia 40.0 umol/L (25-60) 07/05/20 23:06 Lactate Dehydrogenase 217 units/L (91-180) H 07/05/20 23:06 Lactate Dehydrogenase 217 units/L (91-180) H 07/05/20 23:06 Total Creatine Kinase 55 units/L (30-135) 07/05/20 23:06 Troponin T 0.032 ng/mL (0.00-0.029) H 07/05/20 23:06 C-Reactive Protein 1.60 mg/dL (0.00-1.30) H 07/05/20 23:06 C-Reactive Protein 1.60 mg/dL (0.00-1.30) H 07/05/20 23:06 NT-Pro-B Natriuret Pep 05910 pg/mL (0-900) H 07/06/20 11:09 Total Protein 4.4 g/dL (6.3-8.2) L 07/06/20 Unknown Albumin 2.2 g/dL (3.9-5) L 07/06/20 Unknown Albumin/Globulin Ratio 1.0 % 07/06/20 Unknown Triglycerides 126 mg/dL (2-149) 07/05/20 23:06 Cholesterol 109 mg/dL (50-199) 07/05/20 23:06 LDL Cholesterol Direct 43 mg/dL (50-130) L 07/05/20 23:06 HDL Cholesterol 42 mg/dL (40-59) 07/05/20 23:06 Cholesterol/HDL Ratio 2.59 % 07/05/20 23:06 Procalcitonin < 0.05 ng/mL (<0.15) 07/05/20 23:06 TSH 15.130 mlU/mL (0.270-4.200) H 07/05/20 23:06 Free T4 0.79 ng/dL (0.76-1.46) 07/06/20 11:09 Arterial Blood Glucose 128 mg/dL (65-95) H 07/13/20 22:00 Arterial Blood Ionized Calcium 4.9 mg/dL (4.6-5.3) 07/13/20 22:00 Urine Color Mildred (Yellow) 07/05/20 Unknown Urine Turbidity Clear (Clear) 07/05/20 Unknown Urine pH 5.0 (5.0-7.0) 07/05/20 Unknown Ur Specific [place] 1.025 (1.003-1.030) 07/05/20 Unknown Urine Protein 30 mg/dl mg/dL (Negative) 07/05/20 Unknown Urine Glucose (UA) Neg mg/dL (Negative) 07/05/20 Unknown Urine Ketones Neg mg/dL (Negative) 07/05/20 Unknown Urine Blood Neg (Negative) 07/05/20 Unknown Urine Nitrite Neg (Negative) 07/05/20 Unknown Urine Bilirubin Neg (Negative) 07/05/20 Unknown Urine Urobilinogen 4.0 mg/dL (<2.0) 07/05/20 Unknown Ur Leukocyte Esterase Neg (Negative) 07/05/20 Unknown Urine WBC (Auto) 2.0 /HPF (0.0-6.0) 07/05/20 Unknown Urine RBC (Auto) 1.0 /HPF (0.0-6.0) 07/05/20 Unknown U Epithel Cells (Auto) 1.0 /HPF (0-13.0) 07/05/20 Unknown Hyaline Casts 16 /LPF 07/05/20 Unknown Urine Mucus Few /HPF 07/05/20 Unknown Salicylates < 0.3 mg/dL (2.8-20.0) L 07/05/20 23:06 Acetaminophen < 5.0 ug/mL (10.0-30.0) L 07/05/20 23:06 Plasma/Serum Alcohol < 0.01 % (0-0.07) 07/05/20 23:06 Coronavirus (PCR) Negative (Negative) 07/06/20 Unknown Blood Type O POSITIVE 07/05/20 23:10 Antibody Screen Negative 07/05/20 23:10 Roberts/IV: Voiding Method External Female Catheter IV Catheter Type [Right Upper PICC Line arm] IV Catheter Type [Right INT / Saline Lock External Jugular] IV Catheter Type [Left Triple Lumen Cath Internal Jugular] Active Medications - Current Medications Current Medications: Generic Name Dose Route Start Last Admin Trade Name Tyroneq PRN Reason Stop Dose Admin Acetaminophen 650 mg 07/06/20 02:44 Tylenol SD Q4H PRN Pain, Mild (1-3) Lipase/Protease/Amylase 1 each 07/08/20 14:30 Pancrejay [place] 10,500 Unit FEEDTUBE PRN PRN For Clogged Feeding Tube Bisacodyl 10 mg 07/06/20 02:44 Dulcolax SD QDAY PRN Constipation unrelieved by MOM Dextrose 0 ml 07/06/20 19:30 07/06/20 19:25 D50w (25gm) Syringe IV 30 ml ONCE PRN Administration Hypoglycemia Diltiazem HCl 60 mg 07/14/20 14:00 07/16/20 05:16 Cardizem PO 60 mg Q6HR LUZ MARIA Administration Famotidine 20 mg 07/09/20 10:00 07/15/20 21:30 Pepcid PO 20 mg BID LUZ MARIA Administration Hydralazine HCl 5 mg 07/06/20 02:30 Apresoline IV Q30MIN PRN Hypertension Hydrophilic Ointment 1 applic 07/05/20 22:08 Vaseline Lip Therapy TP Q2HR PRN Dry Lips Norepinephrine 4 mg in 250 mls @ 7.5 mls/hr 07/06/20 22:00 11/22/20 08:50 Levophed Drip 4 Mg/Ns 250 Ml IV 0 mcg/min TITR LUZ MARIA 0 mls/hr Titration Protocol 2 MCG/MIN Midazolam HCl 100 mg/ Sodium 100 mls @ 2 mls/hr 07/10/20 13:30 07/16/20 00:30 Chloride IV 2 mg/hr TITR LUZ MARIA 2 mls/hr Titration Protocol 2 MG/HR Dexmedetomidine HCl 200 mcg/ 50 mls @ 3.561 mls/hr 07/14/20 14:00 07/16/20 04:10 Sodium Chloride IV 0.2 mcg/kg/hr TITRATE LUZ MARIA 3.561 mls/hr Titration Protocol 0.2 MCG/KG/HR Magnesium Hydroxide 30 ml 07/14/20 12:06 Milk Of Magnesia PO Q4H PRN Constipation Methylprednisolone Sodium Succinate 60 mg 07/08/20 22:00 07/16/20 05:16 Solu-Medrol IV 60 mg Q8HR LUZ MARIA Administration Metoprolol Tartrate 5 mg 07/14/20 13:20 Metoprolol IV Q6HR PRN HR >120 Midazolam HCl 2 mg 07/10/20 12:56 Versed IV Q10MIN PRN Sedation Morphine Sulfate 2 mg 07/06/20 02:44 07/14/20 18:43 Morphine IV 2 mg Q4H PRN Administration Pain, Moderate (4-6) Multi-Ingred Cream/Lotion/Oil/Oint 1 applic 07/05/20 22:08 Artificial Tears Ophth Oint OU Q4HR PRN Dry Eye(s) Ondansetron HCl 4 mg 07/06/20 02:44 Zofran IV Q8H PRN N/V unrelieved by Live Quetiapine Fumarate 100 mg 07/15/20 22:00 07/15/20 22:23 Seroquel PO 100 mg BID LUZ MARIA Administration Quetiapine Fumarate 200 mg 07/15/20 22:00 07/15/20 22:22 Seroquel PO 200 mg BID LUZ MARIA Administration Simple Syrup 15 ml 07/08/20 14:30 Simple Syrup FEEDTUBE PRN PRN Hypoglycemia Simple Syrup 30 ml 07/08/20 14:30 Simple Syrup FEEDTUBE PRN PRN Hypoglycemia Sodium Bicarbonate 325 mg 07/08/20 14:30 Sodium Bicarbonate FEEDTUBE PRN PRN For Clogged Feeding Tube Sodium Chloride 10 ml 07/06/20 10:00 07/15/20 22:23 Sodium Chloride Flush Syringe 10 Ml IV 10 ml BID LUZ MARIA Administration Sodium Chloride 10 ml 07/06/20 02:44 Sodium Chloride Flush Syringe 10 Ml IV PRN PRN LINE FLUSH Nutrition/Malnutrition Assess - Dietary Evaluation Nutrition/Malnutrition Findings: Nutrition Notes Start: 07/06/20 09:30 Freq: Status: Active Protocol: Document 07/14/20 12:42 LP (Rec: 07/14/20 12:44 LP [email or web address]) Nutrition Notes Initial or Follow up Reassessment Current Diagnosis COPD,Heart Failure,Respiratory Failure Other Pertinent Diagnosis Acute enephalopathy, COVID-19 negative, Intracranial hemorrhage Current Diet Promote at 60ml/hr Labs/Tests Reviewed Pertinent Medications Reviewed Height 5 ft Weight 71.214 kg [place] Body Weight (kg) 45.45 BMI 30.7 Weight Status Obese Subjective/Other Information Pt tolerating Promote at 60ml/ hr (goal rate). Percent of energy/protein needs met: 99%/99% Burn Absent Trauma Absent Food Allergy No Current % PO Negligible Minimum of two criteria No physical signs of malnutrition #1 Nutrition Diagnosis Inadequate oral intake Diagnosis Progress(for reassessment Continues documentation) Is patient on ventilator? Yes Is Patient Ambulatory and/or Out of Bed No REE-([facility]-confined to bed) 3083.372 Calculation Used for Recommendations [facility] Additional Notes Protein: >2 g/kg IBW: >91g Fluid: 1 ml/kcal Nutrition Intervention Change Diet Order: TF Nutrition Support: Promote 1.0 at 60 ml/hr (goal rate) Flush 50ml q4h Kcal 1,440 Protein (gm) 90 Fluid (mL) 1,208 Goal #1 Meet at least 80% of kcal and protein needs via TF Anticipated Discharge Needs: Unable to determine at this time Follow-Up By: 07/21/20 Additional Comments Follow for stable TF and labs
[2020-07-16 08:03] LABS: Hematocrit 39.3 % (30.3-42.9); Hemoglobin 12.5 gm/dl (10.1-14.3); Mean Platelet Volume 10.1 fl (6-12); Red Blood Count 4.27 M/mm3 (3.65-5.03); Red Cell Distribution Width 16.6 % (13.2-15.2)
[2020-07-16 08:16] LABS: Blood Urea Nitrogen 19 mg/dL (7-17); Calcium 8.8 mg/dL (8.4-10.2); Hemolysis Index 4
[2020-07-16 08:48] LABS: BUN/Creatinine Ratio 63
[2020-07-16] MEDS: QUEtiapine 100 MG TAB PO SCH ×2 (09:11→21:13)
[2020-07-16] MEDS: FAMOTIDINE 20 MG TAB PO SCH ×2 (09:11→21:14)
[2020-07-16] MEDS: QUEtiapine 200 MG TAB PO SCH ×2 (09:11→21:13)
--- NOTE | 2020-07-16 10:24 | Progress Note ---
Subjective Date of service: 07/16/20 Principal diagnosis: Ac and ch hypoxic & hypercapnic resp failure; AE-COPD; Tobacco use disorder Interval history: \ Impression Maintaining SR at present, no new recommendations Cont Supportive Care in ICU setting Acute Resp Failure on Ventilator Hx of Paroxysmal Atrial flutter/afib/MAT not on anticoagulation secondary to history of melena and anemia. History of MD/Coronary artery disease 01/2020 echo: normal LVEF 50-55% 2017 [facility] at [facility]: [employer] of the RCA recommend for medical therapy. She did undergo PCI of the mid LAD using bare metal stent. Altered mental status -reason for admission initial head CT scan showed small 1 cm parenchymal hemorrhage in the left parietal juxtacortical region. Chest CTA negative for PE Respiratory failure negative for COVID 19 COPD on home oxygen Hypothyroidism Objective Vital Signs Temp Pulse Pulse Resp BP Pulse Ox 07/16/20 10:00 85 21 138/94 95 07/16/20 09:46 96 H 20 138/94 94 07/16/20 09:30 102 H 17 139/80 93 07/16/20 09:16 97 H 25 H 139/80 98 07/16/20 09:00 105 H 26 H 139/80 95 07/16/20 08:46 93 H 24 132/75 96 07/16/20 08:45 92 H 139/80 97 07/16/20 08:30 96 H 26 H 139/80 95 07/16/20 08:16 98 H 23 139/80 95 07/16/20 08:00 98.4 F 96 H 103 H 24 139/80 96 07/16/20 07:46 95 H 22 131/74 96 07/16/20 07:30 92 H 21 131/74 95 07/16/20 07:16 94 H 22 136/78 95 07/16/20 07:00 98 H 24 136/78 95 07/16/20 06:46 89 26 H 132/74 95 07/16/20 06:30 96 H 24 132/74 95 07/16/20 06:16 89 20 128/74 96 07/16/20 06:00 83 25 H 128/74 96 07/16/20 05:46 91 H 26 H 128/74 96 07/16/20 05:30 96 H 22 128/74 96 07/16/20 05:16 95 H 25 H 130/74 95 07/16/20 05:00 100 H 28 H 125/74 97 07/16/20 04:46 91 H 22 125/74 97 07/16/20 04:30 90 19 125/74 97 07/16/20 04:16 128/70 96 07/16/20 04:00 89 89 26 H 120/68 97 07/16/20 03:56 88 120/68 97 07/16/20 03:46 80 26 H 120/68 97 07/16/20 03:30 75 22 120/68 97 07/16/20 03:16 61 23 103/50 96 07/16/20 03:00 60 22 101/49 96 07/16/20 02:57 99.4 F 07/16/20 02:46 61 22 101/49 96 07/16/20 02:30 59 L 22 101/49 96 07/16/20 02:16 61 21 100/49 96 07/16/20 02:00 60 21 100/49 96 07/16/20 01:46 60 22 102/53 96 07/16/20 01:30 60 22 102/53 96 07/16/20 01:16 63 24 112/59 96 07/16/20 01:00 71 26 H 112/59 96 07/16/20 00:46 74 26 H 118/65 95 07/16/20 00:30 77 25 H 108/58 95 07/16/20 00:16 81 28 H 118/65 95 07/16/20 00:00 89 89 28 H 118/65 95 07/15/20 23:54 83 111/60 07/15/20 23:46 85 26 H 111/60 95 07/15/20 23:38 86 25 H 111/60 95 07/15/20 23:30 91 H 23 111/60 94 07/15/20 23:16 98 H 27 H 116/68 95 07/15/20 23:14 98.4 F 07/15/20 23:00 101 H 26 H 139/80 95 07/15/20 22:46 102 H 22 139/80 95 07/15/20 22:30 99 H 24 141/80 96 07/15/20 22:16 104 H 23 141/80 95 07/15/20 22:00 103 H 23 141/80 95 07/15/20 21:46 96 H 21 135/77 95 07/15/20 21:30 98 H 22 135/77 95 07/15/20 21:16 98 H 22 95 07/15/20 21:01 93 H 23 130/76 95 07/15/20 20:45 92 H 24 121/62 95 07/15/20 20:30 85 24 121/62 95 07/15/20 20:25 85 124/67 95 07/15/20 20:15 97 H 19 149/85 95 07/15/20 20:00 98.6 F 87 87 22 124/67 95 07/15/20 19:45 104 H 18 148/82 93 07/15/20 19:30 113 H 21 149/85 85 07/15/20 19:15 103 H 17 148/82 93 07/15/20 19:00 108 H 14 148/82 93 07/15/20 18:45 104 H 15 135/72 94 07/15/20 18:30 110 H 25 H 135/72 94 07/15/20 18:15 109 H 16 139/91 94 07/15/20 18:12 111 H 139/91 07/15/20 18:00 139/91 92 07/15/20 17:45 98 H 16 125/77 96 07/15/20 17:32 100 H 125/77 97 07/15/20 17:30 102 H 25 H 125/77 95 07/15/20 17:15 96 H 19 133/80 94 07/15/20 17:00 101 H 20 133/80 94 07/15/20 16:45 103 H 20 130/78 94 07/15/20 16:30 100 H 19 130/78 94 07/15/20 16:15 102 H 23 127/75 94 07/15/20 16:00 98.1 F 102 H 102 H 19 127/75 94 07/15/20 15:45 108 H 25 H 129/78 94 07/15/20 15:30 101 H 22 129/78 94 07/15/20 15:15 103 H 21 136/75 94 07/15/20 15:00 98 H 24 136/75 95 07/15/20 14:45 52 L 20 115/58 94 07/15/20 14:44 52 L 115/58 94 07/15/20 14:30 51 L 20 115/58 95 07/15/20 14:15 56 L 21 125/68 97 07/15/20 14:00 57 L 19 119/61 97 07/15/20 13:45 57 L 22 125/68 95 07/15/20 13:30 63 22 125/68 96 07/15/20 13:15 50 L 20 111/55 95 07/15/20 13:00 49 L 20 111/55 95 07/15/20 12:45 50 L 18 106/52 95 07/15/20 12:30 51 L 19 106/52 95 07/15/20 12:28 51 L 104/53 07/15/20 12:15 51 L 20 104/53 94 07/15/20 12:00 98.1 F 52 L 50 L 21 104/53 94 07/15/20 11:45 53 L 20 103/56 94 07/15/20 11:30 53 L 21 103/56 94 07/15/20 11:15 57 L 18 101/52 95 07/15/20 11:05 55 L 101/52 94 07/15/20 11:00 55 L 21 101/52 95 07/15/20 10:45 54 L 18 96/48 96 07/15/20 10:30 55 L 20 96/48 96 - Physical Examination General: Other (intubated on the vent) HEENT: Positive: PERRL Neck: Positive: neck supple Cardiac: Positive: Reg Rate and Rhythm, S1/S2 Neuro: Positive: Weakness (Unresponsive, on the vent) Abdomen: Positive: Soft Skin: Positive: Clear Extremities: Absent: edema - Labs and Meds CBC 07/16/20 Range/Units 07:25 WBC 7.2 (4.5-11.0) K/mm3 RBC 4.27 (3.65-5.03) M/mm3 Hgb 12.5 (10.1-14.3) gm/dl Hct 39.3 (30.3-42.9) % Plt Count 96 L (140-440) K/mm3 Comprehensive Metabolic Panel 07/16/20 Range/Units 07:25 Sodium 138 (137-145) mmol/L Potassium 4.3 (3.6-5.0) mmol/L Chloride 101.5 (98-107) mmol/L Carbon Dioxide 35 H (22-30) mmol/L BUN 19 H (7-17) mg/dL Creatinine 0.3 L (0.6-1.2) mg/dL Glucose 170 H (65-100) mg/dL Calcium 8.8 (8.4-10.2) mg/dL - Allied health notes Allied health notes reviewed: nursing
--- NOTE | 2020-07-16 13:55 | Progress Note ---
Assessment and Plan Acute and chronic hypoxic and hypercapnic respiratory failure: Acute exacerbation of COPD Tobacco use disorder/Nicotine dependence (on going) Bradycardia History of coronary artery disease/CHF History of HTN Chronic narcotic dependence Chronic back pain Anxiety disorder History of depression Thrombocytopenia -Wean PEEP to 6, ABG in am -CXR in am -Gentle intermittent diuresis, monitor renal function, electrolytes and hemodynamics closely -Monitor for bleeding and monitor platelets closely -Tachybrady arrthymias per Cardiology. Currently on Cardizem via feeding tube -Continue all care as documented below. -VTE prophylaxis- with SCD, CT head shows 2 small foci of parenchymal hemorrhage - Continue to taper systemic steroids - continue daily assessment of readiness to wean - continue supplemental oxygen with restrictive strategies re: severe COPD (PaO2 of 60 with O2 sats 88-90% is acceptable) - VAP bundle addressed (aspiration precautions; HOB > 40 degrees) -Lung protective strategies - continue bronchodilators with pulmonary hygiene per RT - Titrate sedation for RASS of 0 to -1 - Maintenance of sleep-wake cycle, avoid delirium - continue enteral nutritional support at goal rate as tolerated - Accuchecks with glycemic control per SSI for target blood glucose of 140-180 mg/dL while critically ill; avoid hypoglycemia - Stress ulcer prophylaxis -Famotidine - Nicotine withdrawal precautions, nicotine patch -Mobility, PT/OT, range of motion exercises - In view of ongoing smoking, recurrent hospital admission, will need to re- address advance directives and goals of care, once the patient is able to be a part of that discussion. Will also address smoking cessation again, once she is able to be a part of that discussion - discharge planning ongoing concurrently - continue other care per attending / other consultants CONDITION: CRITICAL PROGNOSIS: GUARDED CODE STATUS: FULL CODE The high probability of a clinically significant, sudden or life-threatening deterioration of the respiratory, cardiovascular, neurology, endocrine] system(s) required my full and direct attention, intervention and personal management. The aggregate critical care time was [32] minutes without overlap. Time includes spent on; [x] Data Review and interpretation [x] Patient assessment and monitoring of vital signs [x] Documentation [x] Medication orders and management Subjective Date of service: 07/16/20 Principal diagnosis: Ac and ch hypoxic & hypercapnic resp failure; AE-COPD; Tobacco use disorder Interval history: Patient is seen today for: Ac and ch hypoxic hypercapnic resp failure; AE-COPD; Tobacco use disorder/Nicotine dependence; Hypernatremia; HTN (hypotensive at pr esentation; Chronic narcotic dependence ; Chronic back pain; Anxiety disorder Seen and examined at bedside; 24-hour events reviewed; nursing and respiratory care staff consulted; no adverse overnight events reported to me; laying in bed; remains on MVS; FiO2 at 35% with peep at 8 . Sedated on Precedex. Reported episodes of bradycardia this morning. Midazolam is off. Objective Vital Signs - 12hr 07/16/20 07/16/20 07/16/20 02:00 02:16 02:30 Temperature Pulse Rate 60 61 59 L Pulse Rate [ From Monitor] Respiratory 21 21 22 Rate Blood Pressure 100/49 100/49 101/49 O2 Sat by Pulse 96 96 96 Oximetry 07/16/20 07/16/20 07/16/20 02:46 02:57 03:00 Temperature 99.4 F Pulse Rate 61 60 Pulse Rate [ From Monitor] Respiratory 22 22 Rate Blood Pressure 101/49 101/49 O2 Sat by Pulse 96 96 Oximetry 07/16/20 07/16/20 07/16/20 03:16 03:30 03:46 Temperature Pulse Rate 61 75 80 Pulse Rate [ From Monitor] Respiratory 23 22 26 H Rate Blood Pressure 103/50 120/68 120/68 O2 Sat by Pulse 96 97 97 Oximetry 07/16/20 07/16/20 07/16/20 03:56 04:00 04:16 Temperature Pulse Rate 88 89 Pulse Rate [ 89 From Monitor] Respiratory 26 H Rate Blood Pressure 120/68 120/68 128/70 O2 Sat by Pulse 97 97 96 Oximetry 07/16/20 07/16/20 07/16/20 04:30 04:46 05:00 Temperature Pulse Rate 90 91 H 100 H Pulse Rate [ From Monitor] Respiratory 19 22 28 H Rate Blood Pressure 125/74 125/74 125/74 O2 Sat by Pulse 97 97 97 Oximetry 07/16/20 07/16/20 07/16/20 05:16 05:30 05:46 Temperature Pulse Rate 95 H 96 H 91 H Pulse Rate [ From Monitor] Respiratory 25 H 22 26 H Rate Blood Pressure 130/74 128/74 128/74 O2 Sat by Pulse 95 96 96 Oximetry 07/16/20 07/16/20 07/16/20 06:00 06:16 06:30 Temperature Pulse Rate 83 89 96 H Pulse Rate [ From Monitor] Respiratory 25 H 20 24 Rate Blood Pressure 128/74 128/74 132/74 O2 Sat by Pulse 96 96 95 Oximetry 07/16/20 07/16/20 07/16/20 06:46 07:00 07:16 Temperature Pulse Rate 89 98 H 94 H Pulse Rate [ From Monitor] Respiratory 26 H 24 22 Rate Blood Pressure 132/74 136/78 136/78 O2 Sat by Pulse 95 95 95 Oximetry 07/16/20 07/16/20 07/16/20 07:30 07:46 08:00 Temperature 98.4 F Pulse Rate 92 H 95 H 96 H Pulse Rate [ 103 H From Monitor] Respiratory 21 22 24 Rate Blood Pressure 131/74 131/74 139/80 O2 Sat by Pulse 95 96 96 Oximetry 07/16/20 07/16/20 07/16/20 08:16 08:30 08:45 Temperature Pulse Rate 98 H 96 H 92 H Pulse Rate [ From Monitor] Respiratory 23 26 H Rate Blood Pressure 139/80 139/80 139/80 O2 Sat by Pulse 95 95 97 Oximetry 07/16/20 07/16/20 07/16/20 08:46 09:00 09:16 Temperature Pulse Rate 93 H 105 H 97 H Pulse Rate [ From Monitor] Respiratory 24 26 H 25 H Rate Blood Pressure 132/75 139/80 139/80 O2 Sat by Pulse 96 95 98 Oximetry 07/16/20 07/16/20 07/16/20 09:30 09:46 10:00 Temperature Pulse Rate 102 H 96 H 85 Pulse Rate [ From Monitor] Respiratory 17 20 21 Rate Blood Pressure 139/80 138/94 138/94 O2 Sat by Pulse 93 94 95 Oximetry 07/16/20 07/16/20 07/16/20 10:16 10:30 10:46 Temperature Pulse Rate 91 H 84 87 Pulse Rate [ From Monitor] Respiratory 23 21 24 Rate Blood Pressure 138/71 138/71 137/71 O2 Sat by Pulse 94 94 94 Oximetry 07/16/20 07/16/20 07/16/20 11:00 11:16 11:28 Temperature Pulse Rate 84 89 88 Pulse Rate [ From Monitor] Respiratory 18 21 Rate Blood Pressure 137/71 143/76 144/74 O2 Sat by Pulse 94 94 95 Oximetry 11/27/20 11/27/20 11/27/20 11:30 11:46 12:00 Temperature Pulse Rate 89 93 H 99 H Pulse Rate [ 97 H From Monitor] Respiratory 23 25 H 27 H Rate Blood Pressure 143/76 144/74 144/74 O2 Sat by Pulse 95 95 95 Oximetry 07/16/20 12:04 Temperature Pulse Rate 95 H Pulse Rate [ From Monitor] Respiratory Rate Blood Pressure 146/78 O2 Sat by Pulse Oximetry Constitutional: no acute distress, other (elderly obese female with mildly increased respiratory effort at rest on MVS) Eyes: non-icteric ENT: oropharynx moist, other (ETT 7.5 cm at 23 cm THUY) Neck: supple Effort: mildly labored Ascultation: Bilateral: clear, diminished breath sounds, rhonchi (scant) Percussion: Bilateral: not dull Cardiovascular: regular rate and rhythm, other (sinus tach) Gastrointestinal: normoactive bowel sounds, soft, non-tender, non-distended (protuberant) Integumentary: rash Extremities: no cyanosis, pink and warm, no ischemia or petechiae, edema (bilateral upper extremity) Neurologic: non-focal exam (grossly), pupils equal and round, other (sedated) Psychiatric: other (sedated) CBC and BMP: 07/16/20 07:25 07/16/20 07:25 ABG, PT/INR, D-dimer: ABG ABG pH 7.434 pH Units (7.350-7.450) 07/14/20 04:05 POC ABG pCO2 50.3 mmHg (32.0-48.0) H 07/13/20 22:00 ABG pCO2 48.5 mm Hg 07/14/20 04:05 POC ABG pO2 69.1 mmHg (83-108) L 07/13/20 03:33 ABG pO2 69.1 mm Hg (80.0-90.0) L 07/14/20 04:05 POC ABG HCO3 29.0 07/13/20 22:00 ABG O2 Saturation 94.8 % (95.0-99.0) L 07/14/20 04:05 PT/INR, D-dimer PT 14.5 Sec. (12.2-14.9) 07/07/20 05:15 INR 1.12 (0.87-1.13) 07/07/20 05:15 D-Dimer 1298.20 ng/mlDDU (0-234) H 07/05/20 23:06 Abnormal lab findings: Abnormal Labs 07/05/20 07/05/20 07/05/20 22:55 23:06 23:06 Hct MCV RDW Plt Count Lymph % (Auto) [place] % (Auto) Lymph # (Auto) [place] # (Auto) Seg Neutrophils % Seg Neuts % (Manual) Lymphocytes % (Manual) Nucleated RBC % Seg Neutrophils # Lymphocytes # (Manual) PT 15.2 H INR 1.18 H D-Dimer 1298.20 H ABG pH POC ABG pCO2 POC ABG pO2 ABG pO2 227.3 H ABG HCO3 31.3 H ABG O2 Saturation 99.3 H ABG Base Excess 5.8 H ABG Hemoglobin ABG Sodium ABG Glucose Oxyhemoglobin Potassium Chloride Carbon Dioxide BUN 31 H Creatinine Glucose POC Glucose Calcium 7.7 L Lactate Dehydrogenase 217 H Troponin T 0.032 H C-Reactive Protein 1.60 H NT-Pro-B Natriuret Pep Total Protein 5.2 L Albumin 2.6 L LDL Cholesterol Direct 43 L TSH Arterial Blood Glucose Arterial Blood Ionized Calcium Salicylates Acetaminophen 07/05/20 07/05/20 07/05/20 23:06 23:06 23:06 Hct MCV RDW Plt Count Lymph % (Auto) [place] % (Auto) Lymph # (Auto) [place] # (Auto) Seg Neutrophils % Seg Neuts % (Manual) Lymphocytes % (Manual) Nucleated RBC % Seg Neutrophils # Lymphocytes # (Manual) PT INR D-Dimer ABG pH POC ABG pCO2 POC ABG pO2 ABG pO2 ABG HCO3 ABG O2 Saturation ABG Base Excess ABG Hemoglobin ABG Sodium ABG Glucose Oxyhemoglobin Potassium Chloride Carbon Dioxide BUN Creatinine Glucose POC Glucose Calcium Lactate Dehydrogenase Troponin T C-Reactive Protein NT-Pro-B Natriuret Pep Total Protein Albumin LDL Cholesterol Direct TSH 15.130 H Arterial Blood Glucose Arterial Blood Ionized Calcium Salicylates < 0.3 L Acetaminophen < 5.0 L 07/05/20 07/05/20 07/06/20 23:06 23:42 06:58 Hct MCV 98 H RDW 19.8 H Plt Count Lymph % (Auto) [place] % (Auto) 15.9 H Lymph # (Auto) 0.9 L [place] # (Auto) 1.0 H Seg Neutrophils % Seg Neuts % (Manual) Lymphocytes % (Manual) Nucleated RBC % Seg Neutrophils # Lymphocytes # (Manual) PT INR D-Dimer ABG pH 7.533 H POC ABG pCO2 20.7 L POC ABG pO2 ABG pO2 ABG HCO3 ABG O2 Saturation ABG Base Excess ABG Hemoglobin 7.6 L ABG Sodium 132.3 L ABG Glucose 55 L Oxyhemoglobin Potassium Chloride Carbon Dioxide BUN Creatinine Glucose POC Glucose Calcium Lactate Dehydrogenase 217 H Troponin T C-Reactive Protein 1.60 H NT-Pro-B Natriuret Pep Total Protein Albumin LDL Cholesterol Direct TSH Arterial Blood Glucose 55 L Arterial Blood Ionized Calcium 4.3 L Salicylates Acetaminophen 07/06/20 07/06/20 07/06/20 11:09 11:09 17:46 Hct 43.0 H MCV 100 H RDW 20.8 H Plt Count Lymph % (Auto) 7.2 L [place] % (Auto) 11.4 H Lymph # (Auto) 0.7 L [place] # (Auto) 1.1 H Seg Neutrophils % 81.3 H Seg Neuts % (Manual) Lymphocytes % (Manual) Nucleated RBC % Seg Neutrophils # 7.9 H Lymphocytes # (Manual) PT INR D-Dimer ABG pH POC ABG pCO2 POC ABG pO2 ABG pO2 ABG HCO3 ABG O2 Saturation ABG Base Excess ABG Hemoglobin ABG Sodium ABG Glucose Oxyhemoglobin Potassium Chloride Carbon Dioxide BUN Creatinine Glucose POC Glucose 43 L Calcium Lactate Dehydrogenase Troponin T C-Reactive Protein NT-Pro-B Natriuret Pep 62381 H Total Protein Albumin LDL Cholesterol Direct TSH Arterial Blood Glucose Arterial Blood Ionized Calcium Salicylates Acetaminophen 07/06/20 07/06/20 07/07/20 19:31 Unknown 04:55 Hct MCV RDW Plt Count Lymph % (Auto) [place] % (Auto) Lymph # (Auto) [place] # (Auto) Seg Neutrophils % Seg Neuts % (Manual) Lymphocytes % (Manual) Nucleated RBC % Seg Neutrophils # Lymphocytes # (Manual) PT INR D-Dimer ABG pH POC ABG pCO2 POC ABG pO2 ABG pO2 70.8 L ABG HCO3 28.9 H ABG O2 Saturation 94.5 L ABG Base Excess 3.3 H ABG Hemoglobin 11.6 L ABG Sodium ABG Glucose Oxyhemoglobin 92.7 L Potassium 3.5 L Chloride 110.4 H Carbon Dioxide BUN 19 H Creatinine 0.4 L Glucose 101 H POC Glucose < 40 L Calcium 7.2 L Lactate Dehydrogenase Troponin T C-Reactive Protein NT-Pro-B Natriuret Pep Total Protein 4.4 L Albumin 2.2 L LDL Cholesterol Direct TSH Arterial Blood Glucose Arterial Blood Ionized Calcium Salicylates Acetaminophen 07/07/20 07/07/20 07/08/20 05:15 05:15 03:20 Hct MCV 98 H RDW 19.9 H Plt Count Lymph % (Auto) [place] % (Auto) Lymph # (Auto) [place] # (Auto) Seg Neutrophils % Seg Neuts % (Manual) 76.0 H Lymphocytes % (Manual) Nucleated RBC % 1.0 H Seg Neutrophils # Lymphocytes # (Manual) PT INR D-Dimer ABG pH POC ABG pCO2 POC ABG pO2 ABG pO2 ABG HCO3 29.1 H ABG O2 Saturation ABG Base Excess 3.8 H ABG Hemoglobin ABG Sodium ABG Glucose Oxyhemoglobin Potassium Chloride Carbon Dioxide BUN Creatinine 0.5 L Glucose POC Glucose Calcium 7.6 L Lactate Dehydrogenase Troponin T C-Reactive Protein NT-Pro-B Natriuret Pep Total Protein Albumin LDL Cholesterol Direct TSH Arterial Blood Glucose Arterial Blood Ionized Calcium Salicylates Acetaminophen 07/08/20 07/09/20 07/09/20 07:31 00:02 04:05 Hct MCV RDW Plt Count Lymph % (Auto) [place] % (Auto) Lymph # (Auto) [place] # (Auto) Seg Neutrophils % Seg Neuts % (Manual) Lymphocytes % (Manual) Nucleated RBC % Seg Neutrophils # Lymphocytes # (Manual) PT INR D-Dimer ABG pH POC ABG pCO2 POC ABG pO2 63.4 L ABG pO2 ABG HCO3 ABG O2 Saturation ABG Base Excess ABG Hemoglobin 11.8 L ABG Sodium 134.1 L ABG Glucose 137 H Oxyhemoglobin Potassium Chloride 108.6 H Carbon Dioxide BUN Creatinine 0.3 L Glucose 177 H POC Glucose 118 H Calcium 7.7 L Lactate Dehydrogenase Troponin T C-Reactive Protein NT-Pro-B Natriuret Pep Total Protein Albumin LDL Cholesterol Direct TSH Arterial Blood Glucose 137 H Arterial Blood Ionized Calcium Salicylates Acetaminophen 07/09/20 07/09/20 07/09/20 05:10 12:38 17:31 Hct MCV RDW Plt Count Lymph % (Auto) [place] % (Auto) Lymph # (Auto) [place] # (Auto) Seg Neutrophils % Seg Neuts % (Manual) Lymphocytes % (Manual) Nucleated RBC % Seg Neutrophils # Lymphocytes # (Manual) PT INR D-Dimer ABG pH POC ABG pCO2 POC ABG pO2 ABG pO2 ABG HCO3 ABG O2 Saturation ABG Base Excess ABG Hemoglobin ABG Sodium ABG Glucose Oxyhemoglobin Potassium Chloride Carbon Dioxide BUN Creatinine Glucose POC Glucose 132 H 106 H 120 H Calcium Lactate Dehydrogenase Troponin T C-Reactive Protein NT-Pro-B Natriuret Pep Total Protein Albumin LDL Cholesterol Direct TSH Arterial Blood Glucose Arterial Blood Ionized Calcium Salicylates Acetaminophen 07/10/20 07/10/20 07/10/20 00:27 04:15 05:25 Hct MCV RDW Plt Count Lymph % (Auto) [place] % (Auto) Lymph # (Auto) [place] # (Auto) Seg Neutrophils % Seg Neuts % (Manual) Lymphocytes % (Manual) Nucleated RBC % Seg Neutrophils # Lymphocytes # (Manual) PT INR D-Dimer ABG pH POC ABG pCO2 POC ABG pO2 60.7 L ABG pO2 ABG HCO3 ABG O2 Saturation ABG Base Excess ABG Hemoglobin ABG Sodium ABG Glucose 149 H Oxyhemoglobin Potassium Chloride Carbon Dioxide BUN Creatinine Glucose POC Glucose 129 H 127 H Calcium Lactate Dehydrogenase Troponin T C-Reactive Protein NT-Pro-B Natriuret Pep Total Protein Albumin LDL Cholesterol Direct TSH Arterial Blood Glucose 149 H Arterial Blood Ionized Calcium Salicylates Acetaminophen 07/10/20 07/10/20 07/11/20 12:08 16:57 00:04 Hct MCV RDW Plt Count Lymph % (Auto) [place] % (Auto) Lymph # (Auto) [place] # (Auto) Seg Neutrophils % Seg Neuts % (Manual) Lymphocytes % (Manual) Nucleated RBC % Seg Neutrophils # Lymphocytes # (Manual) PT INR D-Dimer ABG pH POC ABG pCO2 POC ABG pO2 ABG pO2 ABG HCO3 ABG O2 Saturation ABG Base Excess ABG Hemoglobin ABG Sodium ABG Glucose Oxyhemoglobin Potassium Chloride Carbon Dioxide BUN Creatinine Glucose POC Glucose 129 H 152 H 127 H Calcium Lactate Dehydrogenase Troponin T C-Reactive Protein NT-Pro-B Natriuret Pep Total Protein Albumin LDL Cholesterol Direct TSH Arterial Blood Glucose Arterial Blood Ionized Calcium Salicylates Acetaminophen 07/11/20 07/11/20 07/11/20 04:56 05:29 11:47 Hct MCV RDW Plt Count Lymph % (Auto) [place] % (Auto) Lymph # (Auto) [place] # (Auto) Seg Neutrophils % Seg Neuts % (Manual) Lymphocytes % (Manual) Nucleated RBC % Seg Neutrophils # Lymphocytes # (Manual) PT INR D-Dimer ABG pH POC ABG pCO2 48.8 H POC ABG pO2 ABG pO2 ABG HCO3 ABG O2 Saturation ABG Base Excess ABG Hemoglobin ABG Sodium ABG Glucose 153 H Oxyhemoglobin Potassium Chloride Carbon Dioxide BUN Creatinine Glucose POC Glucose 127 H 155 H Calcium Lactate Dehydrogenase Troponin T C-Reactive Protein NT-Pro-B Natriuret Pep Total Protein Albumin LDL Cholesterol Direct TSH Arterial Blood Glucose 153 H Arterial Blood Ionized Calcium Salicylates Acetaminophen 07/11/20 07/12/20 07/12/20 17:12 03:18 17:42 Hct MCV RDW Plt Count Lymph % (Auto) [place] % (Auto) Lymph # (Auto) [place] # (Auto) Seg Neutrophils % Seg Neuts % (Manual) Lymphocytes % (Manual) Nucleated RBC % Seg Neutrophils # Lymphocytes # (Manual) PT INR D-Dimer ABG pH POC ABG pCO2 POC ABG pO2 71.4 L ABG pO2 ABG HCO3 ABG O2 Saturation ABG Base Excess ABG Hemoglobin ABG Sodium ABG Glucose 99 H Oxyhemoglobin Potassium Chloride Carbon Dioxide BUN Creatinine Glucose POC Glucose 118 H 112 H Calcium Lactate Dehydrogenase Troponin T C-Reactive Protein NT-Pro-B Natriuret Pep Total Protein Albumin LDL Cholesterol Direct TSH Arterial Blood Glucose 99 H Arterial Blood Ionized Calcium Salicylates Acetaminophen 07/13/20 07/13/20 07/13/20 03:33 09:50 09:50 Hct MCV RDW 17.7 H Plt Count 135 L Lymph % (Auto) [place] % (Auto) Lymph # (Auto) [place] # (Auto) Seg Neutrophils % Seg Neuts % (Manual) 96.0 H Lymphocytes % (Manual) 3.0 L Nucleated RBC % Seg Neutrophils # Lymphocytes # (Manual) 0.2 L PT INR D-Dimer ABG pH 7.462 H POC ABG pCO2 POC ABG pO2 69.1 L ABG pO2 ABG HCO3 ABG O2 Saturation ABG Base Excess ABG Hemoglobin ABG Sodium ABG Glucose 125 H Oxyhemoglobin Potassium Chloride Carbon Dioxide 33 H BUN 18 H Creatinine 0.3 L Glucose 157 H POC Glucose Calcium Lactate Dehydrogenase Troponin T C-Reactive Protein NT-Pro-B Natriuret Pep Total Protein Albumin LDL Cholesterol Direct TSH Arterial Blood Glucose 125 H Arterial Blood Ionized Calcium Salicylates Acetaminophen 07/13/20 07/13/20 07/13/20 11:52 17:32 22:00 Hct MCV RDW Plt Count Lymph % (Auto) [place] % (Auto) Lymph # (Auto) [place] # (Auto) Seg Neutrophils % Seg Neuts % (Manual) Lymphocytes % (Manual) Nucleated RBC % Seg Neutrophils # Lymphocytes # (Manual) PT INR D-Dimer ABG pH POC ABG pCO2 50.3 H POC ABG pO2 ABG pO2 ABG HCO3 ABG O2 Saturation ABG Base Excess ABG Hemoglobin 11.4 L ABG Sodium ABG Glucose 128 H Oxyhemoglobin Potassium Chloride Carbon Dioxide BUN Creatinine Glucose POC Glucose 139 H 119 H Calcium Lactate Dehydrogenase Troponin T C-Reactive Protein NT-Pro-B Natriuret Pep Total Protein Albumin LDL Cholesterol Direct TSH Arterial Blood Glucose 128 H Arterial Blood Ionized Calcium Salicylates Acetaminophen 07/14/20 07/14/20 07/14/20 04:05 11:48 23:22 Hct MCV RDW Plt Count Lymph % (Auto) [place] % (Auto) Lymph # (Auto) [place] # (Auto) Seg Neutrophils % Seg Neuts % (Manual) Lymphocytes % (Manual) Nucleated RBC % Seg Neutrophils # Lymphocytes # (Manual) PT INR D-Dimer ABG pH POC ABG pCO2 POC ABG pO2 ABG pO2 69.1 L ABG HCO3 31.8 H ABG O2 Saturation 94.8 L ABG Base Excess 6.6 H ABG Hemoglobin 11.7 L ABG Sodium ABG Glucose Oxyhemoglobin 93.0 L Potassium Chloride Carbon Dioxide BUN Creatinine Glucose POC Glucose 174 H 117 H Calcium Lactate Dehydrogenase Troponin T C-Reactive Protein NT-Pro-B Natriuret Pep Total Protein Albumin LDL Cholesterol Direct TSH Arterial Blood Glucose Arterial Blood Ionized Calcium Salicylates Acetaminophen 07/15/20 07/15/20 07/15/20 04:57 12:12 17:19 Hct MCV RDW Plt Count Lymph % (Auto) [place] % (Auto) Lymph # (Auto) [place] # (Auto) Seg Neutrophils % Seg Neuts % (Manual) Lymphocytes % (Manual) Nucleated RBC % Seg Neutrophils # Lymphocytes # (Manual) PT INR D-Dimer ABG pH POC ABG pCO2 POC ABG pO2 ABG pO2 ABG HCO3 ABG O2 Saturation ABG Base Excess ABG Hemoglobin ABG Sodium ABG Glucose Oxyhemoglobin Potassium Chloride Carbon Dioxide BUN Creatinine Glucose POC Glucose 159 H 170 H 149 H Calcium Lactate Dehydrogenase Troponin T C-Reactive Protein NT-Pro-B Natriuret Pep Total Protein Albumin LDL Cholesterol Direct TSH Arterial Blood Glucose Arterial Blood Ionized Calcium Salicylates Acetaminophen 07/15/20 07/16/20 07/16/20 23:48 05:38 07:25 Hct MCV RDW 16.6 H Plt Count 96 L Lymph % (Auto) [place] % (Auto) Lymph # (Auto) [place] # (Auto) Seg Neutrophils % Seg Neuts % (Manual) Lymphocytes % (Manual) Nucleated RBC % Seg Neutrophils # Lymphocytes # (Manual) PT INR D-Dimer ABG pH POC ABG pCO2 POC ABG pO2 ABG pO2 ABG HCO3 ABG O2 Saturation ABG Base Excess ABG Hemoglobin ABG Sodium ABG Glucose Oxyhemoglobin Potassium Chloride Carbon Dioxide BUN Creatinine Glucose POC Glucose 159 H 156 H Calcium Lactate Dehydrogenase Troponin T C-Reactive Protein NT-Pro-B Natriuret Pep Total Protein Albumin LDL Cholesterol Direct TSH Arterial Blood Glucose Arterial Blood Ionized Calcium Salicylates Acetaminophen 07/16/20 07/16/20 07:25 11:31 Hct MCV RDW Plt Count Lymph % (Auto) [place] % (Auto) Lymph # (Auto) [place] # (Auto) Seg Neutrophils % Seg Neuts % (Manual) Lymphocytes % (Manual) Nucleated RBC % Seg Neutrophils # Lymphocytes # (Manual) PT INR D-Dimer ABG pH POC ABG pCO2 POC ABG pO2 ABG pO2 ABG HCO3 ABG O2 Saturation ABG Base Excess ABG Hemoglobin ABG Sodium ABG Glucose Oxyhemoglobin Potassium Chloride Carbon Dioxide 35 H BUN 19 H Creatinine 0.3 L Glucose 170 H POC Glucose 150 H Calcium Lactate Dehydrogenase Troponin T C-Reactive Protein NT-Pro-B Natriuret Pep Total Protein Albumin LDL Cholesterol Direct TSH Arterial Blood Glucose Arterial Blood Ionized Calcium Salicylates Acetaminophen Allied health notes reviewed: RT
[2020-07-16] MEDS: MIDAZOLAM 100 MG in SODIUM CHLORIDE 0.9% 80 ML IV SCH (19:00)
[2020-07-16] MEDS ORDERED: FUROSEMIDE 40 MG/4 ML INJ IV ONE (19:34)
--- NOTE | 2020-07-17 03:58 | XRay Report ---
CHEST 1 VIEW INDICATION: respiratory failure. COMPARISON: 07/05/2020 FINDINGS: SUPPORT DEVICES: Left IJ CVL appears to have been removed. There is a new NG tube curled in the proxi mal to mid stomach. HEART: Within normal limits. LUNGS/PLEURA: Mild diffuse interstitial prominence with mild patchy bibasilar predominant airspace di sease. ADDITIONAL FINDINGS: None. IMPRESSION: 1. Support devices and pulmonary findings as above. Signer Name: Kwadwo Ugalde MD Signed: 07/17/2020 3:53 AM Workstation Name: [id number]
[2020-07-17] MEDS: methylPREDNISolone Sod Succinate 125 MG/2 ML INJ IV SCH ×3 (05:02→22:05)
[2020-07-17] MEDS: dilTIAZem 60 MG TAB PO SCH ×4 (05:03→23:21)
--- NOTE | 2020-07-17 09:16 | Progress Note ---
Assessment and Plan Hx of Paroxysmal Atrial flutter/afib/MAT not on anticoagulation secondary to history of melena and anemia. History of GA/Coronary artery disease 01/2020 echo: normal LVEF 50-55% 2017 [facility] at [facility]: [employer]IAN of the RCA recommend for medical therapy. She did undergo PCI of the mid LAD using bare metal stent. Altered mental status -reason for admission initial head CT scan showed small 1 cm parenchymal hemorrhage in the left parietal juxtacortical region. Chest CTA negative for PE Respiratory failure negative for COVID 19 COPD on home oxygen Hypothyroidism TSH at 15.1 Recommendations: Continue diltiazem No new cardiac recommendations Subjective Date of service: 07/17/20 Principal diagnosis: Ac and ch hypoxic & hypercapnic resp failure; AE-COPD; Tobacco use disorder Interval history: Patient is intubated and sedated No cardiac events reported overnight Objective Vital Signs Temp Pulse Pulse Resp BP Pulse Ox 07/17/20 08:48 69 150/74 94 07/17/20 08:46 55 L 21 149/81 94 07/17/20 08:30 67 19 149/81 94 07/17/20 08:16 54 L 18 133/64 93 07/17/20 08:00 97.8 F 55 L 59 L 18 133/64 93 07/17/20 07:46 58 L 21 134/66 94 07/17/20 07:30 56 L 20 134/66 94 07/17/20 07:16 58 L 21 129/66 94 07/17/20 07:00 58 L 21 129/66 94 07/17/20 06:46 61 24 136/75 94 07/17/20 06:30 66 22 136/75 94 07/17/20 06:20 77 86 95 07/17/20 06:16 63 23 138/71 95 07/17/20 06:00 67 24 138/71 95 07/17/20 05:46 66 23 135/74 95 07/17/20 05:40 86 95 07/17/20 05:30 68 25 H 135/70 95 07/17/20 05:16 69 25 H 135/74 95 07/17/20 05:03 74 135/74 07/17/20 05:00 73 25 H 135/74 95 07/17/20 04:46 74 24 137/75 95 07/17/20 04:30 77 86 24 137/75 95 07/17/20 04:16 80 24 140/65 95 07/17/20 04:00 99.8 F H 78 24 140/65 94 07/17/20 03:46 84 22 138/67 92 07/17/20 03:45 84 86 95 07/17/20 03:30 89 23 138/67 94 07/17/20 03:16 91 H 22 141/70 93 07/17/20 03:00 97 H 27 H 141/70 92 07/17/20 02:46 103 H 27 H 131/68 93 07/17/20 02:30 100 H 25 H 131/68 93 07/17/20 02:16 112 H 26 H 158/83 93 07/17/20 02:15 86 95 07/17/20 02:00 108 H 26 H 158/83 93 07/17/20 01:46 96 H 25 H 151/74 93 07/17/20 01:30 95 H 86 26 H 151/74 91 07/17/20 01:16 107 H 20 92 07/17/20 01:00 95 H 26 H 150/82 92 07/17/20 00:46 100 H 26 H 150/82 93 07/17/20 00:30 102 H 25 H 151/76 93 07/17/20 00:16 104 H 26 H 151/76 92 07/17/20 00:05 109 H 151/76 93 07/17/20 00:00 103 H 27 H 157/82 93 07/16/20 23:55 109 H 86 95 07/16/20 23:46 102 H 23 157/82 93 07/16/20 23:30 105 H 29 H 167/84 93 07/16/20 23:22 106 H 164/87 07/16/20 23:16 104 H 26 H 164/87 93 07/16/20 23:14 100 F H 07/16/20 23:00 111 H 25 H 163/81 93 07/16/20 22:46 109 H 26 H 163/81 93 07/16/20 22:30 112 H 28 H 149/71 93 07/16/20 22:16 109 H 24 149/71 93 07/16/20 22:00 99 H 25 H 157/76 93 07/16/20 21:52 97 H 26 H 157/76 93 07/16/20 21:46 99 H 27 H 157/76 93 07/16/20 21:30 94 H 25 H 152/75 93 07/16/20 21:16 89 25 H 152/75 92 07/16/20 21:00 90 25 H 153/74 92 07/16/20 20:46 90 24 153/74 92 07/16/20 20:30 95 H 24 162/78 92 07/16/20 20:16 89 24 162/78 92 07/16/20 20:00 98.8 F 86 86 22 162/78 98 07/16/20 19:46 100 H 18 162/78 92 07/16/20 19:30 95 H 23 163/80 93 07/16/20 19:16 93 H 25 H 163/80 93 07/16/20 19:00 107 H 22 158/79 93 07/16/20 18:46 93 H 26 H 158/79 93 07/16/20 18:30 94 H 25 H 159/83 94 07/16/20 18:16 93 H 23 159/83 94 07/16/20 18:00 81 25 H 159/84 94 07/16/20 17:46 82 23 159/84 94 07/16/20 17:30 86 25 H 163/88 94 07/16/20 17:16 89 25 H 163/88 94 07/16/20 17:00 94 H 24 166/85 93 07/16/20 16:46 97 H 25 H 166/85 94 07/16/20 16:30 102 H 24 157/83 93 07/16/20 16:16 102 H 25 H 157/83 94 07/16/20 16:00 98.1 F 86 97 H 24 142/71 93 07/16/20 15:46 109 H 20 142/71 91 07/16/20 15:30 87 19 136/71 95 07/16/20 15:16 88 22 136/71 94 07/16/20 15:00 88 23 142/75 94 07/16/20 14:46 96 H 23 142/75 95 07/16/20 14:41 99 H 142/75 100 07/16/20 14:30 94 H 22 144/76 95 07/16/20 14:16 101 H 16 144/76 94 07/16/20 14:00 94 H 23 148/74 95 07/16/20 13:46 103 H 18 148/74 95 07/16/20 13:30 93 H 25 H 146/76 95 07/16/20 13:16 100 H 20 146/76 95 07/16/20 13:00 92 H 24 140/77 95 07/16/20 12:46 92 H 24 140/77 95 07/16/20 12:30 96 H 24 146/78 95 07/16/20 12:16 92 H 26 H 146/78 95 07/16/20 12:04 95 H 146/78 07/16/20 12:00 98.1 F 92 H 97 H 27 H 144/74 95 07/16/20 11:46 93 H 25 H 144/74 95 07/16/20 11:30 89 23 143/76 95 07/16/20 11:28 88 144/74 95 07/16/20 11:16 89 21 143/76 94 07/16/20 11:00 84 18 137/71 94 07/16/20 10:46 87 24 137/71 94 07/16/20 10:30 84 21 138/71 94 07/16/20 10:16 91 H 23 138/71 94 07/16/20 10:00 85 21 138/94 95 07/16/20 09:46 96 H 20 138/94 94 07/16/20 09:30 102 H 17 139/80 93 07/16/20 09:16 97 H 25 H 139/80 98 - Physical Examination General: Other (intubated on the vent) HEENT: Positive: PERRL Neck: Positive: neck supple Cardiac: Positive: Reg Rate and Rhythm Lungs: Positive: Ventilated Respirations Neuro: Positive: Weakness (Unresponsive, on the vent) Abdomen: Positive: Soft Skin: Positive: Clear Extremities: Absent: edema - Allied health notes Allied health notes reviewed: RT
[2020-07-17] MEDS: QUEtiapine 100 MG TAB PO SCH (09:30)
[2020-07-17] MEDS: FAMOTIDINE 20 MG TAB PO SCH ×2 (09:30→22:06)
[2020-07-17] MEDS: QUEtiapine 200 MG TAB PO SCH ×2 (09:30→22:05)
--- NOTE | 2020-07-17 12:30 | Progress Note ---
Assessment and Plan Acute and chronic hypoxic and hypercapnic respiratory failure: Acute exacerbation of COPD Tobacco use disorder/Nicotine dependence (on going) Bradycardia History of coronary artery disease/CHF History of HTN Chronic narcotic dependence Chronic back pain Anxiety disorder History of depression Thrombocytopenia -Wean PEEP to 6, SBT with plan to liberate from MVS today if tolerated -CXR, ABG as clinically indicated in am -Gentle intermittent diuresis, monitor renal function, electrolytes and hemodynamics closely -Monitor for bleeding and monitor platelets closely -Continue all care as documented below. -VTE prophylaxis- with SCD, CT head shows 2 small foci of parenchymal hemorrhage - Continue to taper systemic steroids - continue daily assessment of readiness to wean - continue supplemental oxygen with restrictive strategies re: severe COPD (PaO2 of 60 with O2 sats 88-90% is acceptable) - VAP bundle addressed (aspiration precautions; HOB > 40 degrees) -Lung protective strategies - continue bronchodilators with pulmonary hygiene per RT - Titrate sedation for RASS of 0 to -1 - Maintenance of sleep-wake cycle, avoid delirium - continue enteral nutritional support at goal rate as tolerated - Accuchecks with glycemic control per SSI for target blood glucose of 140-180 mg/dL while critically ill; avoid hypoglycemia - Stress ulcer prophylaxis -Famotidine - Nicotine withdrawal precautions, nicotine patch -Mobility, PT/OT, range of motion exercises - In view of ongoing smoking, recurrent hospital admission, will need to re- address advance directives and goals of care, once the patient is able to be a part of that discussion. Will also address smoking cessation again, once she is able to be a part of that discussion - discharge planning ongoing concurrently - continue other care per attending / other consultants CONDITION: CRITICAL PROGNOSIS: GUARDED CODE STATUS: FULL CODE The high probability of a clinically significant, sudden or life-threatening deterioration of the respiratory, cardiovascular, neurology, endocrine] system(s) required my full and direct attention, intervention and personal m anagement. The aggregate critical care time was [32] minutes without overlap. Time includes spent on; [x] Data Review and interpretation [x] Patient assessment and monitoring of vital signs [x] Documentation [x] Medication orders and management Subjective Date of service: 07/17/20 Principal diagnosis: Ac and ch hypoxic & hypercapnic resp failure; AE-COPD; Tobacco use disorder Interval history: Patient is seen today for: Ac and ch hypoxic hypercapnic resp failure; AE-COPD; Tobacco use disorder/Nicotine dependence; Hypernatremia; HTN (hypotensive at presentation; Chronic narcotic dependence ; Chronic back pain; Anxiety disorder Seen and examined at bedside; 24-hour events reviewed; nursing and respiratory care staff consulted; no adverse overnight events reported to me; laying in bed; remains on MVS; FiO2 at 35% with peep at 8 . Awake and alert Objective Vital Signs - 12hr 07/17/20 07/17/20 07/17/20 00:30 00:46 01:00 Temperature Pulse Rate 102 H 100 H 95 H Pulse Rate [ From Monitor] Respiratory 25 H 26 H 26 H Rate Blood Pressure 151/76 150/82 150/82 O2 Sat by Pulse 93 93 92 Oximetry 07/17/20 07/17/20 07/17/20 01:16 01:30 01:46 Temperature Pulse Rate 107 H 95 H 96 H Pulse Rate [ 86 From Monitor] Respiratory 20 26 H 25 H Rate Blood Pressure 151/74 151/74 O2 Sat by Pulse 92 91 93 Oximetry 07/17/20 07/17/20 07/17/20 02:00 02:15 02:16 Temperature Pulse Rate 108 H 112 H Pulse Rate [ 86 From Monitor] Respiratory 26 H 26 H Rate Blood Pressure 158/83 158/83 O2 Sat by Pulse 93 95 93 Oximetry 07/17/20 07/17/20 07/17/20 02:30 02:46 03:00 Temperature Pulse Rate 100 H 103 H 97 H Pulse Rate [ From Monitor] Respiratory 25 H 27 H 27 H Rate Blood Pressure 131/68 131/68 141/70 O2 Sat by Pulse 93 93 92 Oximetry 07/17/20 07/17/20 07/17/20 03:16 03:30 03:45 Temperature Pulse Rate 91 H 89 84 Pulse Rate [ 86 From Monitor] Respiratory 22 23 Rate Blood Pressure 141/70 138/67 O2 Sat by Pulse 93 94 95 Oximetry 07/17/20 07/17/20 07/17/20 03:46 04:00 04:16 Temperature 99.8 F H Pulse Rate 84 78 80 Pulse Rate [ From Monitor] Respiratory 22 24 24 Rate Blood Pressure 138/67 140/65 140/65 O2 Sat by Pulse 92 94 95 Oximetry 07/17/20 07/17/20 07/17/20 04:30 04:46 05:00 Temperature Pulse Rate 77 74 73 Pulse Rate [ 86 From Monitor] Respiratory 24 24 25 H Rate Blood Pressure 137/75 137/75 135/74 O2 Sat by Pulse 95 95 95 Oximetry 07/17/20 07/17/20 07/17/20 05:03 05:16 05:30 Temperature Pulse Rate 74 69 68 Pulse Rate [ From Monitor] Respiratory 25 H 25 H Rate Blood Pressure 135/74 135/74 135/70 O2 Sat by Pulse 95 95 Oximetry 07/17/20 07/17/20 07/17/20 05:40 05:46 06:00 Temperature Pulse Rate 66 67 Pulse Rate [ 86 From Monitor] Respiratory 23 24 Rate Blood Pressure 135/74 138/71 O2 Sat by Pulse 95 95 95 Oximetry 07/17/20 07/17/20 07/17/20 06:16 06:20 06:30 Temperature Pulse Rate 63 77 66 Pulse Rate [ 86 From Monitor] Respiratory 23 22 Rate Blood Pressure 138/71 136/75 O2 Sat by Pulse 95 95 94 Oximetry 07/17/20 07/17/20 07/17/20 06:46 07:00 07:16 Temperature Pulse Rate 61 58 L 58 L Pulse Rate [ From Monitor] Respiratory 24 21 21 Rate Blood Pressure 136/75 129/66 129/66 O2 Sat by Pulse 94 94 94 Oximetry 07/17/20 07/17/20 07/17/20 07:30 07:46 08:00 Temperature 97.8 F Pulse Rate 56 L 58 L 55 L Pulse Rate [ 59 L From Monitor] Respiratory 20 21 18 Rate Blood Pressure 134/66 134/66 133/64 O2 Sat by Pulse 94 94 93 Oximetry 07/17/20 07/17/20 07/17/20 08:16 08:30 08:46 Temperature Pulse Rate 54 L 67 55 L Pulse Rate [ From Monitor] Respiratory 18 19 21 Rate Blood Pressure 133/64 149/81 149/81 O2 Sat by Pulse 93 94 94 Oximetry 07/17/20 07/17/20 07/17/20 08:48 09:00 09:16 Temperature Pulse Rate 69 55 L 63 Pulse Rate [ From Monitor] Respiratory 20 23 Rate Blood Pressure 150/74 150/74 150/74 O2 Sat by Pulse 94 93 92 Oximetry 07/17/20 07/17/20 07/17/20 09:30 09:46 10:00 Temperature Pulse Rate 59 L 60 61 Pulse Rate [ From Monitor] Respiratory 22 22 21 Rate Blood Pressure 148/71 148/71 137/68 O2 Sat by Pulse 93 93 92 Oximetry 07/17/20 07/17/20 07/17/20 10:16 10:30 10:46 Temperature Pulse Rate 61 63 61 Pulse Rate [ From Monitor] Respiratory 22 22 22 Rate Blood Pressure 148/71 137/68 137/68 O2 Sat by Pulse 92 93 93 Oximetry 07/17/20 07/17/20 07/17/20 11:00 11:16 11:30 Temperature Pulse Rate 62 60 58 L Pulse Rate [ From Monitor] Respiratory 21 21 20 Rate Blood Pressure 132/67 132/67 125/68 O2 Sat by Pulse 93 93 94 Oximetry 07/17/20 07/17/20 11:39 11:56 Temperature Pulse Rate 58 L 74 Pulse Rate [ From Monitor] Respiratory 21 Rate Blood Pressure 132/67 125/68 O2 Sat by Pulse 93 Oximetry Constitutional: no acute distress, other (elderly obese female with mildly increased respiratory effort at rest on MVS) Eyes: non-icteric ENT: oropharynx moist, other (ETT 7.5 cm at 23 cm THUY) Neck: supple Effort: mildly labored Ascultation: Bilateral: clear, diminished breath sounds, rhonchi (scant) Percussion: Bilateral: not dull Cardiovascular: regular rate and rhythm, other (sinus tach) Gastrointestinal: normoactive bowel sounds, soft, non-tender, non-distended (protuberant) Integumentary: rash Extremities: no cyanosis, pink and warm, no ischemia or petechiae, edema (bilateral upper extremity) Neurologic: non-focal exam (grossly), pupils equal and round, other (sedated) Psychiatric: other (sedated) CBC and BMP: 07/16/20 07:25 07/17/20 15:40 ABG, PT/INR, D-dimer: ABG ABG pH 7.434 pH Units (7.350-7.450) 07/14/20 04:05 POC ABG pCO2 50.3 mmHg (32.0-48.0) H 07/13/20 22:00 ABG pCO2 48.5 mm Hg 07/14/20 04:05 POC ABG pO2 69.1 mmHg (83-108) L 07/13/20 03:33 ABG pO2 69.1 mm Hg (80.0-90.0) L 07/14/20 04:05 POC ABG HCO3 29.0 07/13/20 22:00 ABG O2 Saturation 94.8 % (95.0-99.0) L 07/14/20 04:05 PT/INR, D-dimer PT 14.5 Sec. (12.2-14.9) 07/07/20 05:15 INR 1.12 (0.87-1.13) 07/07/20 05:15 D-Dimer 1298.20 ng/mlDDU (0-234) H 07/05/20 23:06 Abnormal lab findings: Abnormal Labs 07/05/20 07/05/20 07/05/20 22:55 23:06 23:06 Hct MCV RDW Plt Count Lymph % (Auto) Knott % (Auto) Lymph # (Auto) K[place]t # (Auto) Seg Neutrophils % Seg Neuts % (Manual) Lymphocytes % (Manual) Nucleated RBC % Seg Neutrophils # Lymphocytes # (Manual) PT 15.2 H INR 1.18 H D-Dimer 1298.20 H ABG pH POC ABG pCO2 POC ABG pO2 ABG pO2 227.3 H ABG HCO3 31.3 H ABG O2 Saturation 99.3 H ABG Base Excess 5.8 H ABG Hemoglobin ABG Sodium ABG Glucose Oxyhemoglobin Potassium Chloride Carbon Dioxide BUN 31 H Creatinine Glucose POC Glucose Calcium 7.7 L Lactate Dehydrogenase 217 H Troponin T 0.032 H C-Reactive Protein 1.60 H NT-Pro-B Natriuret Pep Total Protein 5.2 L Albumin 2.6 L LDL Cholesterol Direct 43 L TSH Arterial Blood Glucose Arterial Blood Ionized Calcium Salicylates Acetaminophen 07/05/20 07/05/20 07/05/20 23:06 23:06 23:06 Hct MCV RDW Plt Count Lymph % (Auto) [place]t % (Auto) Lymph # (Auto) K[place]t # (Auto) Seg Neutrophils % Seg Neuts % (Manual) Lymphocytes % (Manual) Nucleated RBC % Seg Neutrophils # Lymphocytes # (Manual) PT INR D-Dimer ABG pH POC ABG pCO2 POC ABG pO2 ABG pO2 ABG HCO3 ABG O2 Saturation ABG Base Excess ABG Hemoglobin ABG Sodium ABG Glucose Oxyhemoglobin Potassium Chloride Carbon Dioxide BUN Creatinine Glucose POC Glucose Calcium Lactate Dehydrogenase Troponin T C-Reactive Protein NT-Pro-B Natriuret Pep Total Protein Albumin LDL Cholesterol Direct TSH 15.130 H Arterial Blood Glucose Arterial Blood Ionized Calcium Salicylates < 0.3 L Acetaminophen < 5.0 L 07/05/20 07/05/20 07/06/20 23:06 23:42 06:58 Hct MCV 98 H RDW 19.8 H Plt Count Lymph % (Auto) Knott % (Auto) 15.9 H Lymph # (Auto) 0.9 L K[place]t # (Auto) 1.0 H Seg Neutrophils % Seg Neuts % (Manual) Lymphocytes % (Manual) Nucleated RBC % Seg Neutrophils # Lymphocytes # (Manual) PT INR D-Dimer ABG pH 7.533 H POC ABG pCO2 20.7 L POC ABG pO2 ABG pO2 ABG HCO3 ABG O2 Saturation ABG Base Excess ABG Hemoglobin 7.6 L ABG Sodium 132.3 L ABG Glucose 55 L Oxyhemoglobin Potassium Chloride Carbon Dioxide BUN Creatinine Glucose POC Glucose Calcium Lactate Dehydrogenase 217 H Troponin T C-Reactive Protein 1.60 H NT-Pro-B Natriuret Pep Total Protein Albumin LDL Cholesterol Direct TSH Arterial Blood Glucose 55 L Arterial Blood Ionized Calcium 4.3 L Salicylates Acetaminophen 07/06/20 07/06/20 07/06/20 11:09 11:09 17:46 Hct 43.0 H MCV 100 H RDW 20.8 H Plt Count Lymph % (Auto) 7.2 L K[place]t % (Auto) 11.4 H Lymph # (Auto) 0.7 L K[place]t # (Auto) 1.1 H Seg Neutrophils % 81.3 H Seg Neuts % (Manual) Lymphocytes % (Manual) Nucleated RBC % Seg Neutrophils # 7.9 H Lymphocytes # (Manual) PT INR D-Dimer ABG pH POC ABG pCO2 POC ABG pO2 ABG pO2 ABG HCO3 ABG O2 Saturation ABG Base Excess ABG Hemoglobin ABG Sodium ABG Glucose Oxyhemoglobin Potassium Chloride Carbon Dioxide BUN Creatinine Glucose POC Glucose 43 L Calcium Lactate Dehydrogenase Troponin T C-Reactive Protein NT-Pro-B Natriuret Pep 18471 H Total Protein Albumin LDL Cholesterol Direct TSH Arterial Blood Glucose Arterial Blood Ionized Calcium Salicylates Acetaminophen 07/06/20 07/06/20 07/07/20 19:31 Unknown 04:55 Hct MCV RDW Plt Count Lymph % (Auto) [place]t % (Auto) Lymph # (Auto) Knott # (Auto) Seg Neutrophils % Seg Neuts % (Manual) Lymphocytes % (Manual) Nucleated RBC % Seg Neutrophils # Lymphocytes # (Manual) PT INR D-Dimer ABG pH POC ABG pCO2 POC ABG pO2 ABG pO2 70.8 L ABG HCO3 28.9 H ABG O2 Saturation 94.5 L ABG Base Excess 3.3 H ABG Hemoglobin 11.6 L ABG Sodium ABG Glucose Oxyhemoglobin 92.7 L Potassium 3.5 L Chloride 110.4 H Carbon Dioxide BUN 19 H Creatinine 0.4 L Glucose 101 H POC Glucose < 40 L Calcium 7.2 L Lactate Dehydrogenase Troponin T C-Reactive Protein NT-Pro-B Natriuret Pep Total Protein 4.4 L Albumin 2.2 L LDL Cholesterol Direct TSH Arterial Blood Glucose Arterial Blood Ionized Calcium Salicylates Acetaminophen 07/07/20 07/07/20 07/08/20 05:15 05:15 03:20 Hct MCV 98 H RDW 19.9 H Plt Count Lymph % (Auto) K[place]t % (Auto) Lymph # (Auto) Knott # (Auto) Seg Neutrophils % Seg Neuts % (Manual) 76.0 H Lymphocytes % (Manual) Nucleated RBC % 1.0 H Seg Neutrophils # Lymphocytes # (Manual) PT INR D-Dimer ABG pH POC ABG pCO2 POC ABG pO2 ABG pO2 ABG HCO3 29.1 H ABG O2 Saturation ABG Base Excess 3.8 H ABG Hemoglobin ABG Sodium ABG Glucose Oxyhemoglobin Potassium Chloride Carbon Dioxide BUN Creatinine 0.5 L Glucose POC Glucose Calcium 7.6 L Lactate Dehydrogenase Troponin T C-Reactive Protein NT-Pro-B Natriuret Pep Total Protein Albumin LDL Cholesterol Direct TSH Arterial Blood Glucose Arterial Blood Ionized Calcium Salicylates Acetaminophen 07/08/20 07/09/20 07/09/20 07:31 00:02 04:05 Hct MCV RDW Plt Count Lymph % (Auto) [place]t % (Auto) Lymph # (Auto) K[place]t # (Auto) Seg Neutrophils % Seg Neuts % (Manual) Lymphocytes % (Manual) Nucleated RBC % Seg Neutrophils # Lymphocytes # (Manual) PT INR D-Dimer ABG pH POC ABG pCO2 POC ABG pO2 63.4 L ABG pO2 ABG HCO3 ABG O2 Saturation ABG Base Excess ABG Hemoglobin 11.8 L ABG Sodium 134.1 L ABG Glucose 137 H Oxyhemoglobin Potassium Chloride 108.6 H Carbon Dioxide BUN Creatinine 0.3 L Glucose 177 H POC Glucose 118 H Calcium 7.7 L Lactate Dehydrogenase Troponin T C-Reactive Protein NT-Pro-B Natriuret Pep Total Protein Albumin LDL Cholesterol Direct TSH Arterial Blood Glucose 137 H Arterial Blood Ionized Calcium Salicylates Acetaminophen 07/09/20 07/09/20 07/09/20 05:10 12:38 17:31 Hct MCV RDW Plt Count Lymph % (Auto) [place]t % (Auto) Lymph # (Auto) K[place]t # (Auto) Seg Neutrophils % Seg Neuts % (Manual) Lymphocytes % (Manual) Nucleated RBC % Seg Neutrophils # Lymphocytes # (Manual) PT INR D-Dimer ABG pH POC ABG pCO2 POC ABG pO2 ABG pO2 ABG HCO3 ABG O2 Saturation ABG Base Excess ABG Hemoglobin ABG Sodium ABG Glucose Oxyhemoglobin Potassium Chloride Carbon Dioxide BUN Creatinine Glucose POC Glucose 132 H 106 H 120 H Calcium Lactate Dehydrogenase Troponin T C-Reactive Protein NT-Pro-B Natriuret Pep Total Protein Albumin LDL Cholesterol Direct TSH Arterial Blood Glucose Arterial Blood Ionized Calcium Salicylates Acetaminophen 07/10/20 07/10/20 07/10/20 00:27 04:15 05:25 Hct MCV RDW Plt Count Lymph % (Auto) [place]t % (Auto) Lymph # (Auto) K[place]t # (Auto) Seg Neutrophils % Seg Neuts % (Manual) Lymphocytes % (Manual) Nucleated RBC % Seg Neutrophils # Lymphocytes # (Manual) PT INR D-Dimer ABG pH POC ABG pCO2 POC ABG pO2 60.7 L ABG pO2 ABG HCO3 ABG O2 Saturation ABG Base Excess ABG Hemoglobin ABG Sodium ABG Glucose 149 H Oxyhemoglobin Potassium Chloride Carbon Dioxide BUN Creatinine Glucose POC Glucose 129 H 127 H Calcium Lactate Dehydrogenase Troponin T C-Reactive Protein NT-Pro-B Natriuret Pep Total Protein Albumin LDL Cholesterol Direct TSH Arterial Blood Glucose 149 H Arterial Blood Ionized Calcium Salicylates Acetaminophen 07/10/20 07/10/20 07/11/20 12:08 16:57 00:04 Hct MCV RDW Plt Count Lymph % (Auto) [place]t % (Auto) Lymph # (Auto) K[place]t # (Auto) Seg Neutrophils % Seg Neuts % (Manual) Lymphocytes % (Manual) Nucleated RBC % Seg Neutrophils # Lymphocytes # (Manual) PT INR D-Dimer ABG pH POC ABG pCO2 POC ABG pO2 ABG pO2 ABG HCO3 ABG O2 Saturation ABG Base Excess ABG Hemoglobin ABG Sodium ABG Glucose Oxyhemoglobin Potassium Chloride Carbon Dioxide BUN Creatinine Glucose POC Glucose 129 H 152 H 127 H Calcium Lactate Dehydrogenase Troponin T C-Reactive Protein NT-Pro-B Natriuret Pep Total Protein Albumin LDL Cholesterol Direct TSH Arterial Blood Glucose Arterial Blood Ionized Calcium Salicylates Acetaminophen 07/11/20 07/11/20 07/11/20 04:56 05:29 11:47 Hct MCV RDW Plt Count Lymph % (Auto) [place]t % (Auto) Lymph # (Auto) K[place]t # (Auto) Seg Neutrophils % Seg Neuts % (Manual) Lymphocytes % (Manual) Nucleated RBC % Seg Neutrophils # Lymphocytes # (Manual) PT INR D-Dimer ABG pH POC ABG pCO2 48.8 H POC ABG pO2 ABG pO2 ABG HCO3 ABG O2 Saturation ABG Base Excess ABG Hemoglobin ABG Sodium ABG Glucose 153 H Oxyhemoglobin Potassium Chloride Carbon Dioxide BUN Creatinine Glucose POC Glucose 127 H 155 H Calcium Lactate Dehydrogenase Troponin T C-Reactive Protein NT-Pro-B Natriuret Pep Total Protein Albumin LDL Cholesterol Direct TSH Arterial Blood Glucose 153 H Arterial Blood Ionized Calcium Salicylates Acetaminophen 07/11/20 07/12/20 07/12/20 17:12 03:18 17:42 Hct MCV RDW Plt Count Lymph % (Auto) K[place]t % (Auto) Lymph # (Auto) K[place]t # (Auto) Seg Neutrophils % Seg Neuts % (Manual) Lymphocytes % (Manual) Nucleated RBC % Seg Neutrophils # Lymphocytes # (Manual) PT INR D-Dimer ABG pH POC ABG pCO2 POC ABG pO2 71.4 L ABG pO2 ABG HCO3 ABG O2 Saturation ABG Base Excess ABG Hemoglobin ABG Sodium ABG Glucose 99 H Oxyhemoglobin Potassium Chloride Carbon Dioxide BUN Creatinine Glucose POC Glucose 118 H 112 H Calcium Lactate Dehydrogenase Troponin T C-Reactive Protein NT-Pro-B Natriuret Pep Total Protein Albumin LDL Cholesterol Direct TSH Arterial Blood Glucose 99 H Arterial Blood Ionized Calcium Salicylates Acetaminophen 07/13/20 07/13/20 07/13/20 03:33 09:50 09:50 Hct MCV RDW 17.7 H Plt Count 135 L Lymph % (Auto) K[place]t % (Auto) Lymph # (Auto) K[place]t # (Auto) Seg Neutrophils % Seg Neuts % (Manual) 96.0 H Lymphocytes % (Manual) 3.0 L Nucleated RBC % Seg Neutrophils # Lymphocytes # (Manual) 0.2 L PT INR D-Dimer ABG pH 7.462 H POC ABG pCO2 POC ABG pO2 69.1 L ABG pO2 ABG HCO3 ABG O2 Saturation ABG Base Excess ABG Hemoglobin ABG Sodium ABG Glucose 125 H Oxyhemoglobin Potassium Chloride Carbon Dioxide 33 H BUN 18 H Creatinine 0.3 L Glucose 157 H POC Glucose Calcium Lactate Dehydrogenase Troponin T C-Reactive Protein NT-Pro-B Natriuret Pep Total Protein Albumin LDL Cholesterol Direct TSH Arterial Blood Glucose 125 H Arterial Blood Ionized Calcium Salicylates Acetaminophen 07/13/20 07/13/20 07/13/20 11:52 17:32 22:00 Hct MCV RDW Plt Count Lymph % (Auto) [place]t % (Auto) Lymph # (Auto) K[place]t # (Auto) Seg Neutrophils % Seg Neuts % (Manual) Lymphocytes % (Manual) Nucleated RBC % Seg Neutrophils # Lymphocytes # (Manual) PT INR D-Dimer ABG pH POC ABG pCO2 50.3 H POC ABG pO2 ABG pO2 ABG HCO3 ABG O2 Saturation ABG Base Excess ABG Hemoglobin 11.4 L ABG Sodium ABG Glucose 128 H Oxyhemoglobin Potassium Chloride Carbon Dioxide BUN Creatinine Glucose POC Glucose 139 H 119 H Calcium Lactate Dehydrogenase Troponin T C-Reactive Protein NT-Pro-B Natriuret Pep Total Protein Albumin LDL Cholesterol Direct TSH Arterial Blood Glucose 128 H Arterial Blood Ionized Calcium Salicylates Acetaminophen 07/14/20 07/14/20 07/14/20 04:05 11:48 23:22 Hct MCV RDW Plt Count Lymph % (Auto) [place]t % (Auto) Lymph # (Auto) [place]t # (Auto) Seg Neutrophils % Seg Neuts % (Manual) Lymphocytes % (Manual) Nucleated RBC % Seg Neutrophils # Lymphocytes # (Manual) PT INR D-Dimer ABG pH POC ABG pCO2 POC ABG pO2 ABG pO2 69.1 L ABG HCO3 31.8 H ABG O2 Saturation 94.8 L ABG Base Excess 6.6 H ABG Hemoglobin 11.7 L ABG Sodium ABG Glucose Oxyhemoglobin 93.0 L Potassium Chloride Carbon Dioxide BUN Creatinine Glucose POC Glucose 174 H 117 H Calcium Lactate Dehydrogenase Troponin T C-Reactive Protein NT-Pro-B Natriuret Pep Total Protein Albumin LDL Cholesterol Direct TSH Arterial Blood Glucose Arterial Blood Ionized Calcium Salicylates Acetaminophen 07/15/20 07/15/20 07/15/20 04:57 12:12 17:19 Hct MCV RDW Plt Count Lymph % (Auto) [place]t % (Auto) Lymph # (Auto) [place]t # (Auto) Seg Neutrophils % Seg Neuts % (Manual) Lymphocytes % (Manual) Nucleated RBC % Seg Neutrophils # Lymphocytes # (Manual) PT INR D-Dimer ABG pH POC ABG pCO2 POC ABG pO2 ABG pO2 ABG HCO3 ABG O2 Saturation ABG Base Excess ABG Hemoglobin ABG Sodium ABG Glucose Oxyhemoglobin Potassium Chloride Carbon Dioxide BUN Creatinine Glucose POC Glucose 159 H 170 H 149 H Calcium Lactate Dehydrogenase Troponin T C-Reactive Protein NT-Pro-B Natriuret Pep Total Protein Albumin LDL Cholesterol Direct TSH Arterial Blood Glucose Arterial Blood Ionized Calcium Salicylates Acetaminophen 07/15/20 07/16/20 07/16/20 23:48 05:38 07:25 Hct MCV RDW 16.6 H Plt Count 96 L Lymph % (Auto) K[place]t % (Auto) Lymph # (Auto) K[place]t # (Auto) Seg Neutrophils % Seg Neuts % (Manual) Lymphocytes % (Manual) Nucleated RBC % Seg Neutrophils # Lymphocytes # (Manual) PT INR D-Dimer ABG pH POC ABG pCO2 POC ABG pO2 ABG pO2 ABG HCO3 ABG O2 Saturation ABG Base Excess ABG Hemoglobin ABG Sodium ABG Glucose Oxyhemoglobin Potassium Chloride Carbon Dioxide BUN Creatinine Glucose POC Glucose 159 H 156 H Calcium Lactate Dehydrogenase Troponin T C-Reactive Protein NT-Pro-B Natriuret Pep Total Protein Albumin LDL Cholesterol Direct TSH Arterial Blood Glucose Arterial Blood Ionized Calcium Salicylates Acetaminophen 07/16/20 07/16/20 07/16/20 07:25 11:31 17:21 Hct MCV RDW Plt Count Lymph % (Auto) [place]t % (Auto) Lymph # (Auto) [place]t # (Auto) Seg Neutrophils % Seg Neuts % (Manual) Lymphocytes % (Manual) Nucleated RBC % Seg Neutrophils # Lymphocytes # (Manual) PT INR D-Dimer ABG pH POC ABG pCO2 POC ABG pO2 ABG pO2 ABG HCO3 ABG O2 Saturation ABG Base Excess ABG Hemoglobin ABG Sodium ABG Glucose Oxyhemoglobin Potassium Chloride Carbon Dioxide 35 H BUN 19 H Creatinine 0.3 L Glucose 170 H POC Glucose 150 H 130 H Calcium Lactate Dehydrogenase Troponin T C-Reactive Protein NT-Pro-B Natriuret Pep Total Protein Albumin LDL Cholesterol Direct TSH Arterial Blood Glucose Arterial Blood Ionized Calcium Salicylates Acetaminophen 07/16/20 07/17/20 07/17/20 23:35 05:58 11:53 Hct MCV RDW Plt Count Lymph % (Auto) [place]t % (Auto) Lymph # (Auto) [place] # (Auto) Seg Neutrophils % Seg Neuts % (Manual) Lymphocytes % (Manual) Nucleated RBC % Seg Neutrophils # Lymphocytes # (Manual) PT INR D-Dimer ABG pH POC ABG pCO2 POC ABG pO2 ABG pO2 ABG HCO3 ABG O2 Saturation ABG Base Excess ABG Hemoglobin ABG Sodium ABG Glucose Oxyhemoglobin Potassium Chloride Carbon Dioxide BUN Creatinine Glucose POC Glucose 128 H 132 H 126 H Calcium Lactate Dehydrogenase Troponin T C-Reactive Protein NT-Pro-B Natriuret Pep Total Protein Albumin LDL Cholesterol Direct TSH Arterial Blood Glucose Arterial Blood Ionized Calcium Salicylates Acetaminophen Allied health notes reviewed: RT
--- NOTE | 2020-07-17 12:34 | Progress Note ---
Assessment and Plan Assessment and plan: Patient is a 59-year-old female who presents to the emergency room from a local alf today with changes in mental status and generalized weakness. Most of the history was gotten from the emergency room staff as patient is unable to give any history at this time. Patient is currently intubated. Patient was brought to the emergency room by EMS and was initially on nonrebreather, she was hypoxic, blood pressure systolic was in the 80s and 90s and was unable to protect her airway and therefore subsequently intubated. Work-up in the emergency room today, chest x-ray did not reveal any significant abnormality. Labs shows elevated troponin. CTA of the chest reveals:1. No CT evidence for pulmonary embolism. 2. Bibasilar consolidation with associated tiny bilateral pleural effusions that could be due to pneumonia, aspiration, or atelectasis. 3. Additional diffuse interlobular septal thickening suggest a component of interstitial pulmonary edema. CT scan of the head reveals: Small 1 cm parenchymal hemorrhage in the left parietal juxtacortical region. Patient has been placed on empiric IV antibiotics for possible underlying pneumonia versus Covid. Neurosurgeon has also been consulted for evaluation of the findings on CT scan of the head. Acute and chronic hypoxic and hypercapnic respiratory failure Acute metabolic encephalopathy Intracranial hemorrhage incidental finding: No intervention at this time Right ICA stenosis: No intervention at this time Acute exacerbation of COPD Tobacco use disorder/Nicotine dependence (on going) Hypernatremia History of coronary artery disease/CHF History of HTN Chronic narcotic dependence Chronic back pain Anxiety disorder History of depression; Obesity; BMI 32.2 Suspected 2019 novel coronavirus: Tested negative 07/07/2020; patient was evaluated by ID and IV antibiotics discontinued. Pulmonary critical care is following. Neurosurgeon consulted in the emergency department and will follow the patient. Patient is still intubated and sedated and on mechanical ventilation, patient is still in the ED and will be transferred to ICU. Patient had episode of hypoglycemia yesterday and was treated according to hypoglycemia protocol. Patient was evaluated by cardiology for history paroxysmal A. fib and patient is not a candidate for anticoagulation because of anemia. 07/07/2020; patient has hypotension yesterday and requiring pressors and that evaluated and started her on IV cefepime and vancomycin. Patient has been fo llowed with Dr Valles and Dr. marx before. 07/09/2020; patient has hypertension and on pressors, on IV cefepime and vancomycin. Patient was seen by neurosurgery and recommend MRI once patient is stable. No neurosurgical intervention is needed. 07/10/2020: patient is pressors, on IV cefepime day 3/5. Patient was seen by neurosurgery and recommend MRI once patient is stable. No neurosurgical in tervention is needed. Pulmonary is following for vent management. 07/11/2020; patient is off pressors, on IV cefepime day 3/5. Patient was seen by neurosurgery and recommend MRI once patient is stable. No neurosurgical intervention is needed. Pulmonary is following for vent management. 07/12: No clinically changes, continue with current management,. remains on sedation, awaiting MRI. Patient remains a full code. 07/13: No new changes, will repeat Labs, wean vent as tolerated. Attempt to re ach family 07/14: Patient remains unresponsive. Continue to await MR brain. Continue weaning from the ventilator. ID has discontinued abx and signed off. Wean sedatives. No seizure epsidoe reported. 07/15: Continue supportive care wean sedation as tolerated. Monitor for any seizure activity. Cardiology input noted. 07/16: Wean sedation as tolerated, patient cardizem 60 mg by NG tube every 6 hours, and IV metoprolol 5 mg as needed for heart rate control. With regards to anticoagulation, she has previously been regarded a poor risk for long-term oral anticoagulation due to chronic anemia. her mental status appears to be improved this am, will continue vent weaning, still awaiting MRI and unsure why it has not yet been done. 07/17: Continue weaning trial, midazolam stopped today. Restriants renewed, trial of lasix today. The high probability of a clinically significant, sudden or life threatening deterioration of the [respiratory, neurology] system(s) required my full and direct attention, intervention and personal management. The aggregate critical care time was [35] minutes. This time is in addition to time spent performing reported procedures but includes the following: [x] Data Review and interpretation [x] Patient assessment and monitoring of vital signs [x] Documentation [x] Medication orders and management History Interval history: Patient seen and examined remains on full ventilatory support, awake this morning, following commands, no agitation noted overnight. BRADYCARDIA OVERNIGHT Hospitalist Physical - Physical exam Narrative exam: VITAL SIGNS: Reviewed. GENERAL: The patient appears normally developed, on full ventilatory support vital signs as documented. HEAD: No signs of head trauma. EYES: Pupils are equal. Extraocular motions intact. EARS: hearing intact MOUTH: ETT inplace NECK: No adenopathy, no JVD. CHEST: Chest with clear breath sounds bilaterally. No wheezes, rales, or rhonchi. CARDIAC: Regular rate and rhythm. S1 and S2, without murmurs, gallops, or rubs. VASCULAR: Generalized Edema. Peripheral pulses normal and equal in all extremities. ABDOMEN: Soft, non tender and non distended. No rebound or guarding, and no masses palpated. Bowel Sounds normal. MUSCULOSKELETAL: Extremities without clubbing, cyanosis. +2 pitting edema. NEUROLOGIC EXAM: following commands PSYCHIATRIC: Sedated SKIN: detail exam as documented in skin assessment intubated and sedated - Constitutional Vitals: Temp Pulse Resp BP Pulse Ox 97.8 F 74 21 125/68 93 07/17/20 08:00 07/17/20 11:56 07/17/20 11:39 07/17/20 11:56 07/17/20 11:39 General appearance: Present: other (intubated on the vent) HEART Score - HEART Score Troponin: Troponin T 0.032 ng/mL (0.00-0.029) H 07/05/20 23:06 Results - Labs CBC & Chem 7: 07/16/20 07:25 07/16/20 07:25 Labs: Laboratory Last Values WBC 7.2 K/mm3 (4.5-11.0) 07/16/20 07:25 RBC 4.27 M/mm3 (3.65-5.03) 07/16/20 07:25 Hgb 12.5 gm/dl (10.1-14.3) 07/16/20 07:25 Hct 39.3 % (30.3-42.9) 07/16/20 07:25 MCV 92 fl (79-97) 07/16/20 07:25 MCH 29 pg (28-32) 07/16/20 07:25 MCHC 32 % (30-34) 07/16/20 07:25 RDW 16.6 % (13.2-15.2) H 07/16/20 07:25 Plt Count 96 K/mm3 (140-440) L 07/16/20 07:25 Lymph % (Auto) 7.2 % (13.4-35.0) L 07/06/20 11:09 [place] % (Auto) Lan Engineer 07/07/20 05:15 Eos % (Auto) 0.0 % (0.0-4.3) 07/06/20 11:09 Baso % (Auto) 0.1 % (0.0-1.8) 07/06/20 11:09 Lymph # (Auto) 0.7 K/mm3 (1.2-5.4) L 07/06/20 11:09 [place] # (Auto) 1.1 K/mm3 (0.0-0.8) H 07/06/20 11:09 Eos # (Auto) 0.0 K/mm3 (0.0-0.4) 07/06/20 11:09 Baso # (Auto) 0.0 K/mm3 (0.0-0.1) 07/06/20 11:09 Add Manual Diff Complete 07/13/20 09:50 Total Counted 100 07/13/20 09:50 Seg Neutrophils % Lan Engineer 07/13/20 09:50 Seg Neuts % (Manual) 96.0 % (40.0-70.0) H 07/13/20 09:50 Band Neutrophils % 0 % 07/13/20 09:50 Lymphocytes % (Manual) 3.0 % (13.4-35.0) L 07/13/20 09:50 Reactive Lymphs % (Man) 0 % 07/13/20 09:50 Monocytes % (Manual) 1.0 % (0.0-7.3) 07/13/20 09:50 Eosinophils % (Manual) 0 % (0.0-4.3) 07/13/20 09:50 Basophils % (Manual) 0 % (0.0-1.8) 07/13/20 09:50 Metamyelocytes % 0 % 07/13/20 09:50 Myelocytes % 0 % 07/13/20 09:50 Promyelocytes % 0 % 07/13/20 09:50 Blast Cells % 0 % 07/13/20 09:50 Nucleated RBC % Not Reportable 07/13/20 09:50 Seg Neutrophils # 7.9 K/mm3 (1.8-7.7) H 07/06/20 11:09 Seg Neutrophils # Man 6.9 K/mm3 (1.8-7.7) 07/13/20 09:50 Band Neutrophils # 0.0 K/mm3 07/13/20 09:50 Lymphocytes # (Manual) 0.2 K/mm3 (1.2-5.4) L 07/13/20 09:50 Abs React Lymphs (Man) 0.0 K/mm3 07/13/20 09:50 Monocytes # (Manual) 0.1 K/mm3 (0.0-0.8) 07/13/20 09:50 Eosinophils # (Manual) 0.0 K/mm3 (0.0-0.4) 07/13/20 09:50 Basophils # (Manual) 0.0 K/mm3 (0.0-0.1) 07/13/20 09:50 Metamyelocytes # 0.0 K/mm3 07/13/20 09:50 Myelocytes # 0.0 K/mm3 07/13/20 09:50 Promyelocytes # 0.0 K/mm3 07/13/20 09:50 Blast Cells # 0.0 K/mm3 07/13/20 09:50 WBC Morphology Not Reportable 07/13/20 09:50 Hypersegmented Neuts Not Reportable 07/13/20 09:50 Hyposegmented Neuts Not Reportable 07/13/20 09:50 Hypogranular Neuts Not Reportable 07/13/20 09:50 Smudge Cells Not Reportable 07/13/20 09:50 Toxic Granulation Not Reportable 07/13/20 09:50 Toxic Vacuolation Not Reportable 07/13/20 09:50 Dohle Bodies Not Reportable 07/13/20 09:50 Pelger-Huet Anomaly Not Reportable 07/13/20 09:50 Marissa Rods Not Reportable 07/13/20 09:50 Platelet Estimate Consistent w auto 07/13/20 09:50 Clumped Platelets Not Reportable 07/13/20 09:50 Plt Clumps, EDTA Not Reportable 07/13/20 09:50 Large Platelets Not Reportable 07/13/20 09:50 Giant Platelets Not Reportable 07/13/20 09:50 Platelet Satelliting Not Reportable 07/13/20 09:50 Plt Morphology Comment Not Reportable 07/13/20 09:50 RBC Morphology Normal 07/13/20 09:50 Dimorphic RBCs Not Reportable 07/13/20 09:50 Polychromasia Not Reportable 07/13/20 09:50 Hypochromasia Not Reportable 07/13/20 09:50 Poikilocytosis Not Reportable 07/13/20 09:50 Anisocytosis Not Reportable 07/13/20 09:50 Microcytosis Not Reportable 07/13/20 09:50 Macrocytosis Not Reportable 07/13/20 09:50 Spherocytes Not Reportable 07/13/20 09:50 Pappenheimer Bodies Not Reportable 07/13/20 09:50 Sickle Cells Not Reportable 07/13/20 09:50 Target Cells Not Reportable 07/13/20 09:50 Tear Drop Cells Not Reportable 07/13/20 09:50 Ovalocytes Not Reportable 07/13/20 09:50 Helmet Cells Not Reportable 07/13/20 09:50 [place] Bodies Not Reportable 07/13/20 09:50 [place] Rings Not Reportable 07/13/20 09:50 Demi Cells Not Reportable 07/13/20 09:50 Bite Cells Not Reportable 07/13/20 09:50 Crenated Cell Not Reportable 07/13/20 09:50 Elliptocytes Not Reportable 07/13/20 09:50 Acanthocytes (Spur) Not Reportable 07/13/20 09:50 Rouleaux Not Reportable 07/13/20 09:50 Hemoglobin C Crystals Not Reportable 07/13/20 09:50 Schistocytes Not Reportable 07/13/20 09:50 Malaria parasites Not Reportable 07/13/20 09:50 Ab Bodies Not Reportable 07/13/20 09:50 Hem Pathologist Commnt No 07/13/20 09:50 PT 14.5 Sec. (12.2-14.9) 07/07/20 05:15 INR 1.12 (0.87-1.13) 07/07/20 05:15 APTT 30.8 Sec. (24.2-36.6) 07/05/20 23:06 D-Dimer 1298.20 ng/mlDDU (0-234) H 07/05/20 23:06 ABG pH 7.434 pH Units (7.350-7.450) 07/14/20 04:05 POC ABG pCO2 50.3 mmHg (32.0-48.0) H 07/13/20 22:00 ABG pCO2 48.5 mm Hg 07/14/20 04:05 POC ABG pO2 69.1 mmHg (83-108) L 07/13/20 03:33 ABG pO2 69.1 mm Hg (80.0-90.0) L 07/14/20 04:05 POC ABG HCO3 29.0 07/13/20 22:00 ABG HCO3 31.8 mmol/L (20.0-26.0) H 07/14/20 04:05 ABG O2 Saturation 94.8 % (95.0-99.0) L 07/14/20 04:05 ABG O2 Content 15.3 (0.0-44) 07/14/20 04:05 POC ABG Base Excess 3.0 07/13/20 22:00 ABG Base Excess 6.6 mmol/L (-2.0-3.0) H 07/14/20 04:05 ABG Hemoglobin 11.7 gm/dl (12.0-16.0) L 07/14/20 04:05 ABG Carboxyhemoglobin 1.5 % (0.0-5.0) 07/14/20 04:05 ABG Methemoglobin 0.4 % (0.0-1.5) 07/14/20 04:05 ABG Sodium 137.5 mmol/L (136.0-145.0) 07/13/20 22:00 ABG Potassium 4.1 mmol/L (3.40-4.50) 07/13/20 22:00 ABG Chloride 103.0 mmol/L (98-107) 07/13/20 22:00 ABG Glucose 128 mg/dL (65-95) H 07/13/20 22:00 Oxyhemoglobin 93.0 % (95.0-99.0) L 07/14/20 04:05 FiO2 40 % 07/14/20 04:05 Sodium 138 mmol/L (137-145) 07/16/20 07:25 Potassium 4.3 mmol/L (3.6-5.0) 07/16/20 07:25 Chloride 101.5 mmol/L (98-107) 07/16/20 07:25 Carbon Dioxide 35 mmol/L (22-30) H 07/16/20 07:25 Anion Gap 6 mmol/L 07/16/20 07:25 BUN 19 mg/dL (7-17) H 07/16/20 07:25 Creatinine 0.3 mg/dL (0.6-1.2) L 07/16/20 07:25 Estimated GFR > 60 ml/min 07/16/20 07:25 BUN/Creatinine Ratio 63 % 07/16/20 07:25 Glucose 170 mg/dL (65-100) H 07/16/20 07:25 POC Glucose 126 mg/dL (70-105) H 07/17/20 11:53 Lactic Acid 0.80 mmol/L (0.7-2.0) 07/05/20 23:06 Calcium 8.8 mg/dL (8.4-10.2) 07/16/20 07:25 Magnesium 2.00 mg/dL (1.7-2.3) 07/05/20 23:06 Ferritin 60.8 ng/mL (10.0-200.0) 07/05/20 23:06 Total Bilirubin 0.30 mg/dL (0.1-1.2) 07/06/20 Unknown AST 13 units/L (5-40) 07/06/20 Unknown ALT 10 units/L (7-56) 07/06/20 Unknown Alkaline Phosphatase 71 units/L (35-129) 07/06/20 Unknown Ammonia 40.0 umol/L (25-60) 07/05/20 23:06 Lactate Dehydrogenase 217 units/L (91-180) H 07/05/20 23:06 Lactate Dehydrogenase 217 units/L (91-180) H 07/05/20 23:06 Total Creatine Kinase 55 units/L (30-135) 07/05/20 23:06 Troponin T 0.032 ng/mL (0.00-0.029) H 07/05/20 23:06 C-Reactive Protein 1.60 mg/dL (0.00-1.30) H 07/05/20 23:06 C-Reactive Protein 1.60 mg/dL (0.00-1.30) H 07/05/20 23:06 NT-Pro-B Natriuret Pep 58235 pg/mL (0-900) H 07/06/20 11:09 Total Protein 4.4 g/dL (6.3-8.2) L 07/06/20 Unknown Albumin 2.2 g/dL (3.9-5) L 07/06/20 Unknown Albumin/Globulin Ratio 1.0 % 07/06/20 Unknown Triglycerides 126 mg/dL (2-149) 07/05/20 23:06 Cholesterol 109 mg/dL (50-199) 07/05/20 23:06 LDL Cholesterol Direct 43 mg/dL (50-130) L 07/05/20 23:06 HDL Cholesterol 42 mg/dL (40-59) 07/05/20 23:06 Cholesterol/HDL Ratio 2.59 % 07/05/20 23:06 Procalcitonin < 0.05 ng/mL (<0.15) 07/05/20 23:06 TSH 15.130 mlU/mL (0.270-4.200) H 07/05/20 23:06 Free T4 0.79 ng/dL (0.76-1.46) 07/06/20 11:09 Arterial Blood Glucose 128 mg/dL (65-95) H 07/13/20 22:00 Arterial Blood Ionized Calcium 4.9 mg/dL (4.6-5.3) 07/13/20 22:00 Urine Color Mildred (Yellow) 07/05/20 Unknown Urine Turbidity Clear (Clear) 07/05/20 Unknown Urine pH 5.0 (5.0-7.0) 07/05/20 Unknown Ur Specific [place] 1.025 (1.003-1.030) 07/05/20 Unknown Urine Protein 30 mg/dl mg/dL (Negative) 07/05/20 Unknown Urine Glucose (UA) Neg mg/dL (Negative) 07/05/20 Unknown Urine Ketones Neg mg/dL (Negative) 07/05/20 Unknown Urine Blood Neg (Negative) 07/05/20 Unknown Urine Nitrite Neg (Negative) 07/05/20 Unknown Urine Bilirubin Neg (Negative) 07/05/20 Unknown Urine Urobilinogen 4.0 mg/dL (<2.0) 07/05/20 Unknown Ur Leukocyte Esterase Neg (Negative) 07/05/20 Unknown Urine WBC (Auto) 2.0 /HPF (0.0-6.0) 07/05/20 Unknown Urine RBC (Auto) 1.0 /HPF (0.0-6.0) 07/05/20 Unknown U Epithel Cells (Auto) 1.0 /HPF (0-13.0) 07/05/20 Unknown Hyaline Casts 16 /LPF 07/05/20 Unknown Urine Mucus Few /HPF 07/05/20 Unknown Salicylates < 0.3 mg/dL (2.8-20.0) L 07/05/20 23:06 Acetaminophen < 5.0 ug/mL (10.0-30.0) L 07/05/20 23:06 Plasma/Serum Alcohol < 0.01 % (0-0.07) 07/05/20 23:06 Coronavirus (PCR) Negative (Negative) 07/06/20 Unknown Blood Type O POSITIVE 07/05/20 23:10 Antibody Screen Negative 07/05/20 23:10 Roberts/IV: Voiding Method External Female Catheter IV Catheter Type [Right Upper PICC Line arm] IV Catheter Type [Right INT / Saline Lock External Jugular] IV Catheter Type [Left Triple Lumen Cath Internal Jugular] Active Medications - Current Medications Current Medications: Generic Name Dose Route Start Last Admin Trade Name Freq PRN Reason Stop Dose Admin Acetaminophen 650 mg 07/06/20 02:44 Tylenol WA Q4H PRN Pain, Mild (1-3) Lipase/Protease/Amylase 1 each 07/08/20 14:30 Pancreazkeshawn Cas[place] 10,500 Unit FEEDTUBE PRN PRN For Clogged Feeding Tube Bisacodyl 10 mg 07/06/20 02:44 Dulcolax WA QDAY PRN Constipation unrelieved by MOM Dextrose 0 ml 07/06/20 19:30 07/06/20 19:25 D50w (25gm) Syringe IV 30 ml ONCE PRN Administration Hypoglycemia Diltiazem HCl 60 mg 07/14/20 14:00 07/17/20 11:56 Cardizem PO 60 mg Q6HR LUZ MARIA Administration Famotidine 20 mg 07/09/20 10:00 07/17/20 09:30 Pepcid PO 20 mg BID LUZ MARIA Administration Hydralazine HCl 5 mg 07/06/20 02:30 Apresoline IV Q30MIN PRN Hypertension Hydrophilic Ointment 1 applic 07/05/20 22:08 Vaseline Lip Therapy TP Q2HR PRN Dry Lips Norepinephrine 4 mg in 250 mls @ 7.5 mls/hr 07/06/20 22:00 07/11/20 08:50 Levophed Drip 4 Mg/Ns 250 Ml IV 0 mcg/min TITR LUZ MARIA 0 mls/hr Titration Protocol 2 MCG/MIN Midazolam HCl 100 mg/ Sodium 100 mls @ 2 mls/hr 07/10/20 13:30 07/17/20 10:18 Chloride IV 0 mg/hr TITR LUZ MARIA 0 mls/hr Titration Protocol 2 MG/HR Dexmedetomidine HCl 200 mcg/ 50 mls @ 3.561 mls/hr 07/14/20 14:00 07/16/20 21:59 Sodium Chloride IV 0.3 mcg/kg/hr TITRATE LUZ MARIA 5.341 mls/hr Titration Protocol 0.2 MCG/KG/HR Magnesium Hydroxide 30 ml 07/14/20 12:06 Milk Of Magnesia PO Q4H PRN Constipation Methylprednisolone Sodium Succinate 60 mg 07/08/20 22:00 07/17/20 05:02 Solu-Medrol IV 60 mg Q8HR LUZ MARIA Administration Metoprolol Tartrate 5 mg 07/14/20 13:20 Metoprolol IV Q6HR PRN HR >120 Midazolam HCl 2 mg 07/10/20 12:56 Versed IV Q10MIN PRN Sedation Morphine Sulfate 2 mg 07/06/20 02:44 07/14/20 18:43 Morphine IV 2 mg Q4H PRN Administration Pain, Moderate (4-6) Multi-Ingred Cream/Lotion/Oil/Oint 1 applic 07/05/20 22:08 Artificial Tears Ophth Oint OU Q4HR PRN Dry Eye(s) Ondansetron HCl 4 mg 07/06/20 02:44 Zofran IV Q8H PRN N/V unrelieved by Live Quetiapine Fumarate 100 mg 07/15/20 22:00 07/17/20 09:30 Seroquel PO 100 mg BID LUZ MARIA Administration Quetiapine Fumarate 200 mg 07/15/20 22:00 07/17/20 09:30 Seroquel PO 200 mg BID LUZ MARIA Administration Simple Syrup 15 ml 07/08/20 14:30 Simple Syrup FEEDTUBE PRN PRN Hypoglycemia Simple Syrup 30 ml 07/08/20 14:30 Simple Syrup FEEDTUBE PRN PRN Hypoglycemia Sodium Bicarbonate 325 mg 07/08/20 14:30 Sodium Bicarbonate FEEDTUBE PRN PRN For Clogged Feeding Tube Sodium Chloride 10 ml 07/06/20 10:00 07/17/20 09:30 Sodium Chloride Flush Syringe 10 Ml IV 10 ml BID LUZ MARIA Administration Sodium Chloride 10 ml 07/06/20 02:44 07/17/20 05:03 Sodium Chloride Flush Syringe 10 Ml IV 10 ml PRN PRN Administration LINE FLUSH Nutrition/Malnutrition Assess - Dietary Evaluation Nutrition/Malnutrition Findings: Nutrition Notes Start: 07/06/20 09:30 Freq: Status: Active Protocol: Document 07/14/20 12:42 LP (Rec: 07/14/20 12:44 LP [id number]) Nutrition Notes Initial or Follow up Reassessment Current Diagnosis COPD,Heart Failure,Respiratory Failure Other Pertinent Diagnosis Acute enephalopathy, COVID-19 negative, Intracranial hemorrhage Current Diet Promote at 60ml/hr Labs/Tests Reviewed Pertinent Medications Reviewed Height 5 ft Weight 71.214 kg [place] Body Weight (kg) 45.45 BMI 30.7 Weight Status Obese Subjective/Other Information Pt tolerating Promote at 60ml/ hr (goal rate). Percent of energy/protein needs met: 99%/99% Burn Absent Trauma Absent Food Allergy No Current % PO Negligible Minimum of two criteria No physical signs of malnutrition #1 Nutrition Diagnosis Inadequate oral intake Diagnosis Progress(for reassessment Continues documentation) Is patient on ventilator? Yes Is Patient Ambulatory and/or Out of Bed No REE-([facility]-confined to bed) [phone] Calculation Used for Recommendations [facility] Additional Notes Protein: >2 g/kg IBW: >91g Fluid: 1 ml/kcal Nutrition Intervention Change Diet Order: TF Nutrition Support: Promote 1.0 at 60 ml/hr (goal rate) Flush 50ml q4h Kcal 1,440 Protein (gm) 90 Fluid (mL) 1,208 Goal #1 Meet at least 80% of kcal and protein needs via TF Anticipated Discharge Needs: Unable to determine at this time Follow-Up By: 07/21/20 Additional Comments Follow for stable TF and labs
[2020-07-17] MEDS ORDERED: FUROSEMIDE 40 MG/4 ML INJ IV ONE (13:00)
[2020-07-17] MEDS ORDERED: MAGNESIUM CITRATE 300 ML ORAL LIQD PO ONE (13:56)
[2020-07-17 16:55] LABS: Blood Urea Nitrogen 19 mg/dL (7-17); Hemolysis Index 8
[2020-07-17 17:14] LABS: BUN/Creatinine Ratio 63
[2020-07-18] MEDS: dilTIAZem 60 MG TAB PO SCH ×3 (05:51→17:29)
[2020-07-18] MEDS: methylPREDNISolone Sod Succinate 125 MG/2 ML INJ IV SCH ×3 (05:52→21:33)
[2020-07-18] MEDS: FAMOTIDINE 20 MG TAB PO SCH ×2 (09:55→21:33)
[2020-07-18] MEDS: QUEtiapine 200 MG TAB PO SCH ×2 (09:55→21:33)
--- NOTE | 2020-07-18 10:20 | Progress Note ---
Assessment and Plan Assessment and plan: Patient is a 59-year-old female who presents to the emergency room from a local [facility] today with changes in mental status and generalized weakness. Most of the history was gotten from the emergency room staff as patient is unable to give any history at this time. Patient is currently intubated. Patient was brought to the emergency room by EMS and was initially on nonrebreather, she was hypoxic, blood pressure systolic was in the 80s and 90s and was unable to protect her airway and therefore subsequently intubated. Work-up in the emergency room today, chest x-ray did not reveal any significant abnormality. Labs shows elevated troponin. CTA of the chest reveals:1. No CT evidence for pulmonary embolism. 2. Bibasilar consolidation with associated tiny bilateral pleural effusions that could be due to pneumonia, aspiration, or atelectasis. 3. Additional diffuse interlobular septal thickening suggest a component of interstitial pulmonary edema. CT scan of the head reveals: Small 1 cm parenchymal hemorrhage in the left parietal juxtacortical region. Patient has been placed on empiric IV antibiotics for possible underlying pneumonia versus Covid. Neurosurgeon has also been consulted for evaluation of the findings on CT scan of the head. Acute and chronic hypoxic and hypercapnic respiratory failure Acute metabolic encephalopathy Intracranial hemorrhage incidental finding: No intervention at this time Right ICA stenosis: No intervention at this time Acute exacerbation of COPD Tobacco use disorder/Nicotine dependence (on going) Hypernatremia History of coronary artery disease/CHF History of HTN Chronic narcotic dependence Chronic back pain Anxiety disorder History of depression; Obesity; BMI 32.2 Suspected 2019 novel coronavirus: Tested negative 07/07/2020; patient was evaluated by ID and IV antibiotics discontinued. Pulmonary critical care is following. Neurosurgeon consulted in the emergency department and will follow the patient. Patient is still intubated and sedated and on mechanical ventilation, patient is still in the ED and will be transferred to ICU. Patient had episode of hypoglycemia yesterday and was treated according to hypoglycemia protocol. Patient was evaluated by cardiology for history paroxysmal A. fib and patient is not a candidate for anticoagulation because of anemia. 07/07/2020; patient has hypotension yesterday and requiring pressors and that evaluated and started her on IV cefepime and vancomycin. Patient has been fo llowed with Dr Valles and Dr. marx before. 07/09/2020; patient has hypertension and on pressors, on IV cefepime and vancomycin. Patient was seen by neurosurgery and recommend MRI once patient is stable. No neurosurgical intervention is needed. 07/10/2020: patient is pressors, on IV cefepime day 3/5. Patient was seen by neurosurgery and recommend MRI once patient is stable. No neurosurgical in tervention is needed. Pulmonary is following for vent management. 07/11/2020; patient is off pressors, on IV cefepime day 3/5. Patient was seen by neurosurgery and recommend MRI once patient is stable. No neurosurgical intervention is needed. Pulmonary is following for vent management. 07/12: No clinically changes, continue with current management,. remains on sedation, awaiting MRI. Patient remains a full code. 07/13: No new changes, will repeat Labs, wean vent as tolerated. Attempt to re ach family 07/14: Patient remains unresponsive. Continue to await MR brain. Continue weaning from the ventilator. ID has discontinued abx and signed off. Wean sedatives. No seizure epsidoe reported. 07/15: Continue supportive care wean sedation as tolerated. Monitor for any seizure activity. Cardiology input noted. 07/16: Wean sedation as tolerated, patient cardizem 60 mg by NG tube every 6 hours, and IV metoprolol 5 mg as needed for heart rate control. With regards to anticoagulation, she has previously been regarded a poor risk for long-term oral anticoagulation due to chronic anemia. her mental status appears to be improved this am, will continue vent weaning, still awaiting MRI and unsure why it has not yet been done. 07/17: Continue weaning trial, midazolam stopped today. Restriants renewed, trial of lasix today. 07/18: Patient successfully extubated to nasal cannula doing well no new complaints. We will reevaluate home medications and reinitiate. Appears patient was on amiodarone and also metoprolol outpatient. And a few other medications in cluding Seroquel. Ideally want to monitor patient in the ICU for at least 24 hours prior to transfer. History Interval history: Patient seen and examined extubated and doing well. Awake this morning, following commands, no agitation noted overnight. Hospitalist Physical - Physical exam Narrative exam: VITAL SIGNS: Reviewed. GENERAL: The patient appears normally developed, vital signs as documented. HEAD: No signs of head trauma. EYES: Pupils are equal. Extraocular motions intact. EARS: hearing intact MOUTH: Oropharyngeal intact. NECK: No adenopathy, no JVD. CHEST: Chest with clear breath sounds bilaterally. No wheezes, rales, or rhonchi. CARDIAC: Regular rate and rhythm. S1 and S2, without murmurs, gallops, or rubs. VASCULAR: Generalized Edema. Peripheral pulses normal and equal in all extremities. ABDOMEN: Soft, non tender and non distended. No rebound or guarding, and no masses palpated. Bowel Sounds normal. MUSCULOSKELETAL: Extremities without clubbing, cyanosis. +2 pitting edema. NEUROLOGIC EXAM: following commands PSYCHIATRIC: Mood status is stable SKIN: detail exam as documented in skin assessment - Constitutional Vitals: Temp Pulse Resp BP Pulse Ox 98.1 F 90 19 151/83 94 07/18/20 08:00 07/18/20 07:30 07/18/20 07:30 07/18/20 07:30 07/18/20 09:15 General appearance: Present: other (intubated on the vent) HEART Score - HEART Score Troponin: Troponin T 0.032 ng/mL (0.00-0.029) H 07/05/20 23:06 Results - Labs CBC & Chem 7: 07/16/20 07:25 07/17/20 15:40 Labs: Laboratory Last Values WBC 7.2 K/mm3 (4.5-11.0) 07/16/20 07:25 RBC 4.27 M/mm3 (3.65-5.03) 07/16/20 07:25 Hgb 12.5 gm/dl (10.1-14.3) 07/16/20 07:25 Hct 39.3 % (30.3-42.9) 07/16/20 07:25 MCV 92 fl (79-97) 07/16/20 07:25 MCH 29 pg (28-32) 07/16/20 07:25 MCHC 32 % (30-34) 07/16/20 07:25 RDW 16.6 % (13.2-15.2) H 07/16/20 07:25 Plt Count 96 K/mm3 (140-440) L 07/16/20 07:25 Lymph % (Auto) 7.2 % (13.4-35.0) L 07/06/20 11:09 George % (Auto) Trailer Steerer 07/07/20 05:15 Eos % (Auto) 0.0 % (0.0-4.3) 07/06/20 11:09 Baso % (Auto) 0.1 % (0.0-1.8) 07/06/20 11:09 Lymph # (Auto) 0.7 K/mm3 (1.2-5.4) L 07/06/20 11:09 George # (Auto) 1.1 K/mm3 (0.0-0.8) H 07/06/20 11:09 Eos # (Auto) 0.0 K/mm3 (0.0-0.4) 07/06/20 11:09 Baso # (Auto) 0.0 K/mm3 (0.0-0.1) 07/06/20 11:09 Add Manual Diff Complete 07/13/20 09:50 Total Counted 100 07/13/20 09:50 Seg Neutrophils % Trailer Steerer 07/13/20 09:50 Seg Neuts % (Manual) 96.0 % (40.0-70.0) H 07/13/20 09:50 Band Neutrophils % 0 % 07/13/20 09:50 Lymphocytes % (Manual) 3.0 % (13.4-35.0) L 07/13/20 09:50 Reactive Lymphs % (Man) 0 % 07/13/20 09:50 Monocytes % (Manual) 1.0 % (0.0-7.3) 07/13/20 09:50 Eosinophils % (Manual) 0 % (0.0-4.3) 07/13/20 09:50 Basophils % (Manual) 0 % (0.0-1.8) 07/13/20 09:50 Metamyelocytes % 0 % 07/13/20 09:50 Myelocytes % 0 % 07/13/20 09:50 Promyelocytes % 0 % 07/13/20 09:50 Blast Cells % 0 % 07/13/20 09:50 Nucleated RBC % Not Reportable 07/13/20 09:50 Seg Neutrophils # 7.9 K/mm3 (1.8-7.7) H 07/06/20 11:09 Seg Neutrophils # Man 6.9 K/mm3 (1.8-7.7) 07/13/20 09:50 Band Neutrophils # 0.0 K/mm3 07/13/20 09:50 Lymphocytes # (Manual) 0.2 K/mm3 (1.2-5.4) L 07/13/20 09:50 Abs React Lymphs (Man) 0.0 K/mm3 07/13/20 09:50 Monocytes # (Manual) 0.1 K/mm3 (0.0-0.8) 07/13/20 09:50 Eosinophils # (Manual) 0.0 K/mm3 (0.0-0.4) 07/13/20 09:50 Basophils # (Manual) 0.0 K/mm3 (0.0-0.1) 07/13/20 09:50 Metamyelocytes # 0.0 K/mm3 07/13/20 09:50 Myelocytes # 0.0 K/mm3 07/13/20 09:50 Promyelocytes # 0.0 K/mm3 07/13/20 09:50 Blast Cells # 0.0 K/mm3 07/13/20 09:50 WBC Morphology Not Reportable 07/13/20 09:50 Hypersegmented Neuts Not Reportable 07/13/20 09:50 Hyposegmented Neuts Not Reportable 07/13/20 09:50 Hypogranular Neuts Not Reportable 07/13/20 09:50 Smudge Cells Not Reportable 07/13/20 09:50 Toxic Granulation Not Reportable 07/13/20 09:50 Toxic Vacuolation Not Reportable 07/13/20 09:50 Dohle Bodies Not Reportable 07/13/20 09:50 Pelger-Huet Anomaly Not Reportable 07/13/20 09:50 Marissa Rods Not Reportable 07/13/20 09:50 Platelet Estimate Consistent w auto 07/13/20 09:50 Clumped Platelets Not Reportable 07/13/20 09:50 Plt Clumps, EDTA Not Reportable 07/13/20 09:50 Large Platelets Not Reportable 07/13/20 09:50 Giant Platelets Not Reportable 07/13/20 09:50 Platelet Satelliting Not Reportable 07/13/20 09:50 Plt Morphology Comment Not Reportable 07/13/20 09:50 RBC Morphology Normal 07/13/20 09:50 Dimorphic RBCs Not Reportable 07/13/20 09:50 Polychromasia Not Reportable 07/13/20 09:50 Hypochromasia Not Reportable 07/13/20 09:50 Poikilocytosis Not Reportable 07/13/20 09:50 Anisocytosis Not Reportable 07/13/20 09:50 Microcytosis Not Reportable 07/13/20 09:50 Macrocytosis Not Reportable 07/13/20 09:50 Spherocytes Not Reportable 07/13/20 09:50 Pappenheimer Bodies Not Reportable 07/13/20 09:50 Sickle Cells Not Reportable 07/13/20 09:50 Target Cells Not Reportable 07/13/20 09:50 Tear Drop Cells Not Reportable 07/13/20 09:50 Ovalocytes Not Reportable 07/13/20 09:50 Helmet Cells Not Reportable 07/13/20 09:50 [place] Bodies Not Reportable 07/13/20 09:50 [place] Rings Not Reportable 07/13/20 09:50 Demi Cells Not Reportable 07/13/20 09:50 Bite Cells Not Reportable 07/13/20 09:50 Crenated Cell Not Reportable 07/13/20 09:50 Elliptocytes Not Reportable 07/13/20 09:50 Acanthocytes (Spur) Not Reportable 07/13/20 09:50 Rouleaux Not Reportable 07/13/20 09:50 Hemoglobin C Crystals Not Reportable 07/13/20 09:50 Schistocytes Not Reportable 07/13/20 09:50 Malaria parasites Not Reportable 07/13/20 09:50 Ab Bodies Not Reportable 07/13/20 09:50 Hem Pathologist Commnt No 07/13/20 09:50 PT 14.5 Sec. (12.2-14.9) 07/07/20 05:15 INR 1.12 (0.87-1.13) 07/07/20 05:15 APTT 30.8 Sec. (24.2-36.6) 07/05/20 23:06 D-Dimer 1298.20 ng/mlDDU (0-234) H 07/05/20 23:06 ABG pH 7.434 pH Units (7.350-7.450) 07/14/20 04:05 POC ABG pCO2 50.3 mmHg (32.0-48.0) H 07/13/20 22:00 ABG pCO2 48.5 mm Hg 07/14/20 04:05 POC ABG pO2 69.1 mmHg (83-108) L 07/13/20 03:33 ABG pO2 69.1 mm Hg (80.0-90.0) L 07/14/20 04:05 POC ABG HCO3 29.0 07/13/20 22:00 ABG HCO3 31.8 mmol/L (20.0-26.0) H 07/14/20 04:05 ABG O2 Saturation 94.8 % (95.0-99.0) L 07/14/20 04:05 ABG O2 Content 15.3 (0.0-44) 07/14/20 04:05 POC ABG Base Excess 3.0 07/13/20 22:00 ABG Base Excess 6.6 mmol/L (-2.0-3.0) H 07/14/20 04:05 ABG Hemoglobin 11.7 gm/dl (12.0-16.0) L 07/14/20 04:05 ABG Carboxyhemoglobin 1.5 % (0.0-5.0) 07/14/20 04:05 ABG Methemoglobin 0.4 % (0.0-1.5) 07/14/20 04:05 ABG Sodium 137.5 mmol/L (136.0-145.0) 07/13/20 22:00 ABG Potassium 4.1 mmol/L (3.40-4.50) 07/13/20 22:00 ABG Chloride 103.0 mmol/L (98-107) 07/13/20 22:00 ABG Glucose 128 mg/dL (65-95) H 07/13/20 22:00 Oxyhemoglobin 93.0 % (95.0-99.0) L 07/14/20 04:05 FiO2 40 % 07/14/20 04:05 Sodium 141 mmol/L (137-145) 07/17/20 15:40 Potassium 3.7 mmol/L (3.6-5.0) 07/17/20 15:40 Chloride 98.3 mmol/L (98-107) 07/17/20 15:40 Carbon Dioxide 34 mmol/L (22-30) H 07/17/20 15:40 Anion Gap 12 mmol/L 07/17/20 15:40 BUN 19 mg/dL (7-17) H 07/17/20 15:40 Creatinine 0.3 mg/dL (0.6-1.2) L 07/17/20 15:40 Estimated GFR > 60 ml/min 07/17/20 15:40 BUN/Creatinine Ratio 63 % 07/17/20 15:40 Glucose 150 mg/dL (65-100) H 07/17/20 15:40 POC Glucose 122 mg/dL (70-105) H 07/18/20 05:31 Lactic Acid 0.80 mmol/L (0.7-2.0) 07/05/20 23:06 Calcium 9.0 mg/dL (8.4-10.2) 07/17/20 15:40 Magnesium 2.00 mg/dL (1.7-2.3) 07/05/20 23:06 Ferritin 60.8 ng/mL (10.0-200.0) 07/05/20 23:06 Total Bilirubin 0.30 mg/dL (0.1-1.2) 07/06/20 Unknown AST 13 units/L (5-40) 07/06/20 Unknown ALT 10 units/L (7-56) 07/06/20 Unknown Alkaline Phosphatase 71 units/L (35-129) 07/06/20 Unknown Ammonia 40.0 umol/L (25-60) 07/05/20 23:06 Lactate Dehydrogenase 217 units/L (91-180) H 07/05/20 23:06 Lactate Dehydrogenase 217 units/L (91-180) H 07/05/20 23:06 Total Creatine Kinase 55 units/L (30-135) 07/05/20 23:06 Troponin T 0.032 ng/mL (0.00-0.029) H 07/05/20 23:06 C-Reactive Protein 1.60 mg/dL (0.00-1.30) H 07/05/20 23:06 C-Reactive Protein 1.60 mg/dL (0.00-1.30) H 07/05/20 23:06 NT-Pro-B Natriuret Pep 10109 pg/mL (0-900) H 07/06/20 11:09 Total Protein 4.4 g/dL (6.3-8.2) L 07/06/20 Unknown Albumin 2.2 g/dL (3.9-5) L 07/06/20 Unknown Albumin/Globulin Ratio 1.0 % 07/06/20 Unknown Triglycerides 126 mg/dL (2-149) 07/05/20 23:06 Cholesterol 109 mg/dL (50-199) 07/05/20 23:06 LDL Cholesterol Direct 43 mg/dL (50-130) L 07/05/20 23:06 HDL Cholesterol 42 mg/dL (40-59) 07/05/20 23:06 Cholesterol/HDL Ratio 2.59 % 07/05/20 23:06 Procalcitonin < 0.05 ng/mL (<0.15) 07/05/20 23:06 TSH 15.130 mlU/mL (0.270-4.200) H 07/05/20 23:06 Free T4 0.79 ng/dL (0.76-1.46) 07/06/20 11:09 Arterial Blood Glucose 128 mg/dL (65-95) H 07/13/20 22:00 Arterial Blood Ionized Calcium 4.9 mg/dL (4.6-5.3) 07/13/20 22:00 Urine Color Mildred (Yellow) 07/05/20 Unknown Urine Turbidity Clear (Clear) 07/05/20 Unknown Urine pH 5.0 (5.0-7.0) 07/05/20 Unknown Ur Specific [place] 1.025 (1.003-1.030) 07/05/20 Unknown Urine Protein 30 mg/dl mg/dL (Negative) 07/05/20 Unknown Urine Glucose (UA) Neg mg/dL (Negative) 07/05/20 Unknown Urine Ketones Neg mg/dL (Negative) 07/05/20 Unknown Urine Blood Neg (Negative) 07/05/20 Unknown Urine Nitrite Neg (Negative) 07/05/20 Unknown Urine Bilirubin Neg (Negative) 07/05/20 Unknown Urine Urobilinogen 4.0 mg/dL (<2.0) 07/05/20 Unknown Ur Leukocyte Esterase Neg (Negative) 07/05/20 Unknown Urine WBC (Auto) 2.0 /HPF (0.0-6.0) 07/05/20 Unknown Urine RBC (Auto) 1.0 /HPF (0.0-6.0) 07/05/20 Unknown U Epithel Cells (Auto) 1.0 /HPF (0-13.0) 07/05/20 Unknown Hyaline Casts 16 /LPF 07/05/20 Unknown Urine Mucus Few /HPF 07/05/20 Unknown Salicylates < 0.3 mg/dL (2.8-20.0) L 07/05/20 23:06 Acetaminophen < 5.0 ug/mL (10.0-30.0) L 07/05/20 23:06 Plasma/Serum Alcohol < 0.01 % (0-0.07) 07/05/20 23:06 Coronavirus (PCR) Negative (Negative) 07/06/20 Unknown Blood Type O POSITIVE 07/05/20 23:10 Antibody Screen Negative 07/05/20 23:10 Roberts/IV: Voiding Method External Female Catheter IV Catheter Type [Right Upper PICC Line arm] IV Catheter Type [Right INT / Saline Lock External Jugular] IV Catheter Type [Left Triple Lumen Cath Internal Jugular] Active Medications - Current Medications Current Medications: Generic Name Dose Route Start Last Admin Trade Name Freq PRN Reason Stop Dose Admin Acetaminophen 650 mg 07/06/20 02:44 Tylenol MD Q4H PRN Pain, Mild (1-3) Lipase/Protease/Amylase 1 each 07/08/20 14:30 Pancrejay [place] 10,500 Unit FEEDTUBE PRN PRN For Clogged Feeding Tube Bisacodyl 10 mg 07/06/20 02:44 Dulcolax MD QDAY PRN Constipation unrelieved by MOM Dextrose 0 ml 07/06/20 19:30 07/06/20 19:25 D50w (25gm) Syringe IV 30 ml ONCE PRN Administration Hypoglycemia Diltiazem HCl 60 mg 07/14/20 14:00 07/18/20 05:51 Cardizem PO 60 mg Q6HR LUZ MARIA Administration Famotidine 20 mg 07/09/20 10:00 07/18/20 09:55 Pepcid PO 20 mg BID LUZ MARIA Administration Hydralazine HCl 5 mg 07/06/20 02:30 Apresoline IV Q30MIN PRN Hypertension Hydrophilic Ointment 1 applic 07/05/20 22:08 Vaseline Lip Therapy TP Q2HR PRN Dry Lips Norepinephrine 4 mg in 250 mls @ 7.5 mls/hr 07/06/20 22:00 07/11/20 08:50 Levophed Drip 4 Mg/Ns 250 Ml IV 0 mcg/min TITR LUZ MARIA 0 mls/hr Titration Protocol 2 MCG/MIN Dexmedetomidine HCl 200 mcg/ 50 mls @ 3.561 mls/hr 07/14/20 14:00 07/16/20 21:59 Sodium Chloride IV 0.3 mcg/kg/hr TITRATE LUZ MARIA 5.341 mls/hr Titration Protocol 0.2 MCG/KG/HR Magnesium Hydroxide 30 ml 07/14/20 12:06 Milk Of Magnesia PO Q4H PRN Constipation Methylprednisolone Sodium Succinate 60 mg 07/08/20 22:00 07/18/20 05:52 Solu-Medrol IV 60 mg Q8HR LUZ MARIA Administration Metoprolol Tartrate 5 mg 07/14/20 13:20 Metoprolol IV Q6HR PRN HR >120 Multi-Ingred Cream/Lotion/Oil/Oint 1 applic 07/05/20 22:08 Artificial Tears Ophth Oint OU Q4HR PRN Dry Eye(s) Ondansetron HCl 4 mg 07/06/20 02:44 Zofran IV Q8H PRN N/V unrelieved by Live Quetiapine Fumarate 200 mg 07/15/20 22:00 07/18/20 09:55 Seroquel PO 200 mg BID LUZ MARIA Administration Simple Syrup 15 ml 07/08/20 14:30 Simple Syrup FEEDTUBE PRN PRN Hypoglycemia Simple Syrup 30 ml 07/08/20 14:30 Simple Syrup FEEDTUBE PRN PRN Hypoglycemia Sodium Bicarbonate 325 mg 07/08/20 14:30 Sodium Bicarbonate FEEDTUBE PRN PRN For Clogged Feeding Tube Sodium Chloride 10 ml 07/06/20 10:00 07/18/20 09:56 Sodium Chloride Flush Syringe 10 Ml IV 10 ml BID LUZ MARIA Administration Sodium Chloride 10 ml 07/06/20 02:44 07/17/20 05:03 Sodium Chloride Flush Syringe 10 Ml IV 10 ml PRN PRN Administration LINE FLUSH Nutrition/Malnutrition Assess - Dietary Evaluation Nutrition/Malnutrition Findings: Nutrition Notes Start: 07/06/20 09:30 Freq: Status: Active Protocol: Document 07/14/20 12:42 LP (Rec: 07/14/20 12:44 LP [id number]) Nutrition Notes Initial or Follow up Reassessment Current Diagnosis COPD,Heart Failure,Respiratory Failure Other Pertinent Diagnosis Acute enephalopathy, COVID-19 negative, Intracranial hemorrhage Current Diet Promote at 60ml/hr Labs/Tests Reviewed Pertinent Medications Reviewed Height 5 ft Weight 71.214 kg [place] Body Weight (kg) 45.45 BMI 30.7 Weight Status Obese Subjective/Other Information Pt tolerating Promote at 60ml/ hr (goal rate). Percent of energy/protein needs met: 99%/99% Burn Absent Trauma Absent Food Allergy No Current % PO Negligible Minimum of two criteria No physical signs of malnutrition #1 Nutrition Diagnosis Inadequate oral intake Diagnosis Progress(for reassessment Continues documentation) Is patient on ventilator? Yes Is Patient Ambulatory and/or Out of Bed No REE-([facility]-confined to bed) 1443.134 Calculation Used for Recommendations [facility] Additional Notes Protein: >2 g/kg IBW: >91g Fluid: 1 ml/kcal Nutrition Intervention Change Diet Order: TF Nutrition Support: Promote 1.0 at 60 ml/hr (goal rate) Flush 50ml q4h Kcal 1,440 Protein (gm) 90 Fluid (mL) 1,208 Goal #1 Meet at least 80% of kcal and protein needs via TF Anticipated Discharge Needs: Unable to determine at this time Follow-Up By: 07/21/20 Additional Comments Follow for stable TF and labs
[2020-07-18] MEDS: IPRATROPIUM/ALBUTEROL SULFATE 3 ML AMPUL.NEB IH SCH ×2 (11:21→18:10)
[2020-07-18] MEDS: LACTULOSE 20 GM/30 ML ORAL LIQD PO SCH ×2 (12:13→17:29)
[2020-07-18] MEDS ORDERED: ACETAMINOPHEN 325 MG TAB PO PRN (17:16)
--- NOTE | 2020-07-18 17:23 | Progress Note ---
Assessment and Plan Acute and chronic hypoxic and hypercapnic respiratory failure: Acute exacerbation of COPD Tobacco use disorder/Nicotine dependence (on going) Bradycardia History of coronary artery disease/CHF History of HTN Chronic narcotic dependence Chronic back pain Anxiety disorder History of depression Thrombocytopenia -CXR, ABG as clinically indicated -Gentle intermittent diuresis, monitor renal function, electrolytes and hemodynamics closely -Monitor for bleeding and monitor platelets closely -Continue all care as documented below. -VTE prophylaxis- with SCD, CT head shows 2 small foci of parenchymal hemorrhage - Continue to taper systemic steroids - continue daily assessment of readiness to wean - continue supplemental oxygen with restrictive strategies re: severe COPD (PaO2 of 60 with O2 sats 88-90% is acceptable) - continue bronchodilators with pulmonary hygiene per RT - Maintenance of sleep-wake cycle, avoid delirium - continue enteral nutritional support at goal rate as tolerated - Accuchecks with glycemic control per SSI for target blood glucose of 140-180 mg/dL while critically ill; avoid hypoglycemia - Stress ulcer prophylaxis -Famotidine - Nicotine withdrawal precautions, nicotine patch -Mobility, PT/OT, range of motion exercises - discharge planning ongoing concurrently - continue other care per attending / other consultants CONDITION: FAIR PROGNOSIS: GUARDED CODE STATUS: FULL CODE Subjective Date of service: 07/18/20 Principal diagnosis: Ac and ch hypoxic & hypercapnic resp failure; AE-COPD; Tobacco use disorder Interval history: Patient is seen today for: Ac and ch hypoxic hypercapnic resp failure; AE-COPD; Tobacco use disorder/Nicotine dependence; Hypernatremia; HTN (hypotensive at presentation; Chronic narcotic dependence ; Chronic back pain; Anxiety disorder Seen and examined at bedside; 24-hour events reviewed; nursing and respiratory care staff consulted; no adverse overnight events reported to me; laying in bed; extubated yesterday and is doing well. Passed bedside swallow evaluation Awake and alert Objective Vital Signs - 12hr 07/18/20 07/18/20 07/18/20 05:30 05:51 06:00 Temperature Pulse Rate 79 80 93 H Respiratory 24 17 Rate Blood Pressure 152/82 152/82 158/89 O2 Sat by Pulse 97 96 Oximetry 07/18/20 07/18/20 07/18/20 06:30 07:00 07:30 Temperature Pulse Rate 84 84 90 Respiratory 17 21 19 Rate Blood Pressure 154/86 150/78 151/83 O2 Sat by Pulse 97 96 95 Oximetry 07/18/20 07/18/20 07/18/20 08:00 08:30 09:00 Temperature 98.1 F Pulse Rate 86 88 75 Respiratory 24 16 20 Rate Blood Pressure 152/83 135/71 142/72 O2 Sat by Pulse 94 93 95 Oximetry 07/18/20 07/18/20 07/18/20 09:15 09:30 10:00 Temperature Pulse Rate 85 68 Respiratory 25 H 27 H Rate Blood Pressure 152/80 153/71 O2 Sat by Pulse 94 91 93 Oximetry 07/18/20 07/18/20 07/18/20 10:30 11:00 11:30 Temperature Pulse Rate 91 H 84 89 Respiratory 17 23 25 H Rate Blood Pressure 153/86 149/72 145/77 O2 Sat by Pulse 94 94 95 Oximetry 07/18/20 07/18/20 07/18/20 12:00 12:13 12:30 Temperature 98.0 F Pulse Rate 89 89 90 Respiratory 23 22 Rate Blood Pressure 142/77 142/77 145/77 O2 Sat by Pulse 94 94 Oximetry 07/18/20 07/18/20 07/18/20 13:00 13:30 14:00 Temperature Pulse Rate 83 76 72 Respiratory 23 22 20 Rate Blood Pressure 140/72 131/68 132/65 O2 Sat by Pulse 95 95 94 Oximetry 07/18/20 07/18/20 07/18/20 14:30 15:00 15:30 Temperature Pulse Rate 74 75 76 Respiratory 23 22 25 H Rate Blood Pressure 139/72 148/69 146/70 O2 Sat by Pulse 94 93 94 Oximetry 07/18/20 07/18/20 15:52 16:00 Temperature 98.1 F Pulse Rate 80 Respiratory 26 H Rate Blood Pressure 152/80 O2 Sat by Pulse 94 Oximetry Constitutional: no acute distress, alert Eyes: non-icteric ENT: oropharynx moist Neck: supple Effort: mildly labored Ascultation: Bilateral: clear, diminished breath sounds, rhonchi (scant) Percussion: Bilateral: not dull Cardiovascular: regular rate and rhythm, other (sinus tach) Gastrointestinal: normoactive bowel sounds, soft, non-tender, non-distended (protuberant) Integumentary: rash Extremities: no cyanosis, pink and warm, no ischemia or petechiae, edema (bilateral upper extremity) Neurologic: normal mental status, non-focal exam (grossly), pupils equal and round, motor strength normal and Psychiatric: mood appropriate, affect normal CBC and BMP: 07/16/20 07:25 07/17/20 15:40 ABG, PT/INR, D-dimer: ABG ABG pH 7.434 pH Units (7.350-7.450) 07/14/20 04:05 POC ABG pCO2 50.3 mmHg (32.0-48.0) H 07/13/20 22:00 ABG pCO2 48.5 mm Hg 07/14/20 04:05 POC ABG pO2 69.1 mmHg (83-108) L 07/13/20 03:33 ABG pO2 69.1 mm Hg (80.0-90.0) L 07/14/20 04:05 POC ABG HCO3 29.0 07/13/20 22:00 ABG O2 Saturation 94.8 % (95.0-99.0) L 07/14/20 04:05 PT/INR, D-dimer PT 14.5 Sec. (12.2-14.9) 07/07/20 05:15 INR 1.12 (0.87-1.13) 07/07/20 05:15 D-Dimer 1298.20 ng/mlDDU (0-234) H 07/05/20 23:06 Abnormal lab findings: Abnormal Labs 07/05/20 07/05/20 07/05/20 22:55 23:06 23:06 Hct MCV RDW Plt Count Lymph % (Auto) [place] % (Auto) Lymph # (Auto) [place] # (Auto) Seg Neutrophils % Seg Neuts % (Manual) Lymphocytes % (Manual) Nucleated RBC % Seg Neutrophils # Lymphocytes # (Manual) PT 15.2 H INR 1.18 H D-Dimer 1298.20 H ABG pH POC ABG pCO2 POC ABG pO2 ABG pO2 227.3 H ABG HCO3 31.3 H ABG O2 Saturation 99.3 H ABG Base Excess 5.8 H ABG Hemoglobin ABG Sodium ABG Glucose Oxyhemoglobin Potassium Chloride Carbon Dioxide BUN 31 H Creatinine Glucose POC Glucose Calcium 7.7 L Lactate Dehydrogenase 217 H Troponin T 0.032 H C-Reactive Protein 1.60 H NT-Pro-B Natriuret Pep Total Protein 5.2 L Albumin 2.6 L LDL Cholesterol Direct 43 L TSH Arterial Blood Glucose Arterial Blood Ionized Calcium Salicylates Acetaminophen 07/05/20 07/05/20 07/05/20 23:06 23:06 23:06 Hct MCV RDW Plt Count Lymph % (Auto) [place] % (Auto) Lymph # (Auto) [place] # (Auto) Seg Neutrophils % Seg Neuts % (Manual) Lymphocytes % (Manual) Nucleated RBC % Seg Neutrophils # Lymphocytes # (Manual) PT INR D-Dimer ABG pH POC ABG pCO2 POC ABG pO2 ABG pO2 ABG HCO3 ABG O2 Saturation ABG Base Excess ABG Hemoglobin ABG Sodium ABG Glucose Oxyhemoglobin Potassium Chloride Carbon Dioxide BUN Creatinine Glucose POC Glucose Calcium Lactate Dehydrogenase Troponin T C-Reactive Protein NT-Pro-B Natriuret Pep Total Protein Albumin LDL Cholesterol Direct TSH 15.130 H Arterial Blood Glucose Arterial Blood Ionized Calcium Salicylates < 0.3 L Acetaminophen < 5.0 L 07/05/20 07/05/20 07/06/20 23:06 23:42 06:58 Hct MCV 98 H RDW 19.8 H Plt Count Lymph % (Auto) [place] % (Auto) 15.9 H Lymph # (Auto) 0.9 L [place] # (Auto) 1.0 H Seg Neutrophils % Seg Neuts % (Manual) Lymphocytes % (Manual) Nucleated RBC % Seg Neutrophils # Lymphocytes # (Manual) PT INR D-Dimer ABG pH 7.533 H POC ABG pCO2 20.7 L POC ABG pO2 ABG pO2 ABG HCO3 ABG O2 Saturation ABG Base Excess ABG Hemoglobin 7.6 L ABG Sodium 132.3 L ABG Glucose 55 L Oxyhemoglobin Potassium Chloride Carbon Dioxide BUN Creatinine Glucose POC Glucose Calcium Lactate Dehydrogenase 217 H Troponin T C-Reactive Protein 1.60 H NT-Pro-B Natriuret Pep Total Protein Albumin LDL Cholesterol Direct TSH Arterial Blood Glucose 55 L Arterial Blood Ionized Calcium 4.3 L Salicylates Acetaminophen 07/06/20 07/06/20 07/06/20 11:09 11:09 17:46 Hct 43.0 H MCV 100 H RDW 20.8 H Plt Count Lymph % (Auto) 7.2 L [place] % (Auto) 11.4 H Lymph # (Auto) 0.7 L [place] # (Auto) 1.1 H Seg Neutrophils % 81.3 H Seg Neuts % (Manual) Lymphocytes % (Manual) Nucleated RBC % Seg Neutrophils # 7.9 H Lymphocytes # (Manual) PT INR D-Dimer ABG pH POC ABG pCO2 POC ABG pO2 ABG pO2 ABG HCO3 ABG O2 Saturation ABG Base Excess ABG Hemoglobin ABG Sodium ABG Glucose Oxyhemoglobin Potassium Chloride Carbon Dioxide BUN Creatinine Glucose POC Glucose 43 L Calcium Lactate Dehydrogenase Troponin T C-Reactive Protein NT-Pro-B Natriuret Pep 77848 H Total Protein Albumin LDL Cholesterol Direct TSH Arterial Blood Glucose Arterial Blood Ionized Calcium Salicylates Acetaminophen 07/06/20 07/06/20 07/07/20 19:31 Unknown 04:55 Hct MCV RDW Plt Count Lymph % (Auto) [place] % (Auto) Lymph # (Auto) [place] # (Auto) Seg Neutrophils % Seg Neuts % (Manual) Lymphocytes % (Manual) Nucleated RBC % Seg Neutrophils # Lymphocytes # (Manual) PT INR D-Dimer ABG pH POC ABG pCO2 POC ABG pO2 ABG pO2 70.8 L ABG HCO3 28.9 H ABG O2 Saturation 94.5 L ABG Base Excess 3.3 H ABG Hemoglobin 11.6 L ABG Sodium ABG Glucose Oxyhemoglobin 92.7 L Potassium 3.5 L Chloride 110.4 H Carbon Dioxide BUN 19 H Creatinine 0.4 L Glucose 101 H POC Glucose < 40 L Calcium 7.2 L Lactate Dehydrogenase Troponin T C-Reactive Protein NT-Pro-B Natriuret Pep Total Protein 4.4 L Albumin 2.2 L LDL Cholesterol Direct TSH Arterial Blood Glucose Arterial Blood Ionized Calcium Salicylates Acetaminophen 07/07/20 07/07/20 07/08/20 05:15 05:15 03:20 Hct MCV 98 H RDW 19.9 H Plt Count Lymph % (Auto) [place] % (Auto) Lymph # (Auto) [place] # (Auto) Seg Neutrophils % Seg Neuts % (Manual) 76.0 H Lymphocytes % (Manual) Nucleated RBC % 1.0 H Seg Neutrophils # Lymphocytes # (Manual) PT INR D-Dimer ABG pH POC ABG pCO2 POC ABG pO2 ABG pO2 ABG HCO3 29.1 H ABG O2 Saturation ABG Base Excess 3.8 H ABG Hemoglobin ABG Sodium ABG Glucose Oxyhemoglobin Potassium Chloride Carbon Dioxide BUN Creatinine 0.5 L Glucose POC Glucose Calcium 7.6 L Lactate Dehydrogenase Troponin T C-Reactive Protein NT-Pro-B Natriuret Pep Total Protein Albumin LDL Cholesterol Direct TSH Arterial Blood Glucose Arterial Blood Ionized Calcium Salicylates Acetaminophen 07/08/20 07/09/20 07/09/20 07:31 00:02 04:05 Hct MCV RDW Plt Count Lymph % (Auto) [place] % (Auto) Lymph # (Auto) [place] # (Auto) Seg Neutrophils % Seg Neuts % (Manual) Lymphocytes % (Manual) Nucleated RBC % Seg Neutrophils # Lymphocytes # (Manual) PT INR D-Dimer ABG pH POC ABG pCO2 POC ABG pO2 63.4 L ABG pO2 ABG HCO3 ABG O2 Saturation ABG Base Excess ABG Hemoglobin 11.8 L ABG Sodium 134.1 L ABG Glucose 137 H Oxyhemoglobin Potassium Chloride 108.6 H Carbon Dioxide BUN Creatinine 0.3 L Glucose 177 H POC Glucose 118 H Calcium 7.7 L Lactate Dehydrogenase Troponin T C-Reactive Protein NT-Pro-B Natriuret Pep Total Protein Albumin LDL Cholesterol Direct TSH Arterial Blood Glucose 137 H Arterial Blood Ionized Calcium Salicylates Acetaminophen 07/09/20 07/09/20 07/09/20 05:10 12:38 17:31 Hct MCV RDW Plt Count Lymph % (Auto) [place] % (Auto) Lymph # (Auto) [place] # (Auto) Seg Neutrophils % Seg Neuts % (Manual) Lymphocytes % (Manual) Nucleated RBC % Seg Neutrophils # Lymphocytes # (Manual) PT INR D-Dimer ABG pH POC ABG pCO2 POC ABG pO2 ABG pO2 ABG HCO3 ABG O2 Saturation ABG Base Excess ABG Hemoglobin ABG Sodium ABG Glucose Oxyhemoglobin Potassium Chloride Carbon Dioxide BUN Creatinine Glucose POC Glucose 132 H 106 H 120 H Calcium Lactate Dehydrogenase Troponin T C-Reactive Protein NT-Pro-B Natriuret Pep Total Protein Albumin LDL Cholesterol Direct TSH Arterial Blood Glucose Arterial Blood Ionized Calcium Salicylates Acetaminophen 07/10/20 07/10/20 07/10/20 00:27 04:15 05:25 Hct MCV RDW Plt Count Lymph % (Auto) [place] % (Auto) Lymph # (Auto) [place] # (Auto) Seg Neutrophils % Seg Neuts % (Manual) Lymphocytes % (Manual) Nucleated RBC % Seg Neutrophils # Lymphocytes # (Manual) PT INR D-Dimer ABG pH POC ABG pCO2 POC ABG pO2 60.7 L ABG pO2 ABG HCO3 ABG O2 Saturation ABG Base Excess ABG Hemoglobin ABG Sodium ABG Glucose 149 H Oxyhemoglobin Potassium Chloride Carbon Dioxide BUN Creatinine Glucose POC Glucose 129 H 127 H Calcium Lactate Dehydrogenase Troponin T C-Reactive Protein NT-Pro-B Natriuret Pep Total Protein Albumin LDL Cholesterol Direct TSH Arterial Blood Glucose 149 H Arterial Blood Ionized Calcium Salicylates Acetaminophen 07/10/20 07/10/20 07/11/20 12:08 16:57 00:04 Hct MCV RDW Plt Count Lymph % (Auto) [place] % (Auto) Lymph # (Auto) [place] # (Auto) Seg Neutrophils % Seg Neuts % (Manual) Lymphocytes % (Manual) Nucleated RBC % Seg Neutrophils # Lymphocytes # (Manual) PT INR D-Dimer ABG pH POC ABG pCO2 POC ABG pO2 ABG pO2 ABG HCO3 ABG O2 Saturation ABG Base Excess ABG Hemoglobin ABG Sodium ABG Glucose Oxyhemoglobin Potassium Chloride Carbon Dioxide BUN Creatinine Glucose POC Glucose 129 H 152 H 127 H Calcium Lactate Dehydrogenase Troponin T C-Reactive Protein NT-Pro-B Natriuret Pep Total Protein Albumin LDL Cholesterol Direct TSH Arterial Blood Glucose Arterial Blood Ionized Calcium Salicylates Acetaminophen 07/11/20 07/11/20 07/11/20 04:56 05:29 11:47 Hct MCV RDW Plt Count Lymph % (Auto) [place] % (Auto) Lymph # (Auto) [place] # (Auto) Seg Neutrophils % Seg Neuts % (Manual) Lymphocytes % (Manual) Nucleated RBC % Seg Neutrophils # Lymphocytes # (Manual) PT INR D-Dimer ABG pH POC ABG pCO2 48.8 H POC ABG pO2 ABG pO2 ABG HCO3 ABG O2 Saturation ABG Base Excess ABG Hemoglobin ABG Sodium ABG Glucose 153 H Oxyhemoglobin Potassium Chloride Carbon Dioxide BUN Creatinine Glucose POC Glucose 127 H 155 H Calcium Lactate Dehydrogenase Troponin T C-Reactive Protein NT-Pro-B Natriuret Pep Total Protein Albumin LDL Cholesterol Direct TSH Arterial Blood Glucose 153 H Arterial Blood Ionized Calcium Salicylates Acetaminophen 07/11/20 07/12/20 07/12/20 17:12 03:18 17:42 Hct MCV RDW Plt Count Lymph % (Auto) [place] % (Auto) Lymph # (Auto) [place] # (Auto) Seg Neutrophils % Seg Neuts % (Manual) Lymphocytes % (Manual) Nucleated RBC % Seg Neutrophils # Lymphocytes # (Manual) PT INR D-Dimer ABG pH POC ABG pCO2 POC ABG pO2 71.4 L ABG pO2 ABG HCO3 ABG O2 Saturation ABG Base Excess ABG Hemoglobin ABG Sodium ABG Glucose 99 H Oxyhemoglobin Potassium Chloride Carbon Dioxide BUN Creatinine Glucose POC Glucose 118 H 112 H Calcium Lactate Dehydrogenase Troponin T C-Reactive Protein NT-Pro-B Natriuret Pep Total Protein Albumin LDL Cholesterol Direct TSH Arterial Blood Glucose 99 H Arterial Blood Ionized Calcium Salicylates Acetaminophen 07/13/20 07/13/20 07/13/20 03:33 09:50 09:50 Hct MCV RDW 17.7 H Plt Count 135 L Lymph % (Auto) [place] % (Auto) Lymph # (Auto) [place] # (Auto) Seg Neutrophils % Seg Neuts % (Manual) 96.0 H Lymphocytes % (Manual) 3.0 L Nucleated RBC % Seg Neutrophils # Lymphocytes # (Manual) 0.2 L PT INR D-Dimer ABG pH 7.462 H POC ABG pCO2 POC ABG pO2 69.1 L ABG pO2 ABG HCO3 ABG O2 Saturation ABG Base Excess ABG Hemoglobin ABG Sodium ABG Glucose 125 H Oxyhemoglobin Potassium Chloride Carbon Dioxide 33 H BUN 18 H Creatinine 0.3 L Glucose 157 H POC Glucose Calcium Lactate Dehydrogenase Troponin T C-Reactive Protein NT-Pro-B Natriuret Pep Total Protein Albumin LDL Cholesterol Direct TSH Arterial Blood Glucose 125 H Arterial Blood Ionized Calcium Salicylates Acetaminophen 07/13/20 07/13/20 07/13/20 11:52 17:32 22:00 Hct MCV RDW Plt Count Lymph % (Auto) [place] % (Auto) Lymph # (Auto) [place] # (Auto) Seg Neutrophils % Seg Neuts % (Manual) Lymphocytes % (Manual) Nucleated RBC % Seg Neutrophils # Lymphocytes # (Manual) PT INR D-Dimer ABG pH POC ABG pCO2 50.3 H POC ABG pO2 ABG pO2 ABG HCO3 ABG O2 Saturation ABG Base Excess ABG Hemoglobin 11.4 L ABG Sodium ABG Glucose 128 H Oxyhemoglobin Potassium Chloride Carbon Dioxide BUN Creatinine Glucose POC Glucose 139 H 119 H Calcium Lactate Dehydrogenase Troponin T C-Reactive Protein NT-Pro-B Natriuret Pep Total Protein Albumin LDL Cholesterol Direct TSH Arterial Blood Glucose 128 H Arterial Blood Ionized Calcium Salicylates Acetaminophen 07/14/20 07/14/20 07/14/20 04:05 11:48 23:22 Hct MCV RDW Plt Count Lymph % (Auto) [place] % (Auto) Lymph # (Auto) [place] # (Auto) Seg Neutrophils % Seg Neuts % (Manual) Lymphocytes % (Manual) Nucleated RBC % Seg Neutrophils # Lymphocytes # (Manual) PT INR D-Dimer ABG pH POC ABG pCO2 POC ABG pO2 ABG pO2 69.1 L ABG HCO3 31.8 H ABG O2 Saturation 94.8 L ABG Base Excess 6.6 H ABG Hemoglobin 11.7 L ABG Sodium ABG Glucose Oxyhemoglobin 93.0 L Potassium Chloride Carbon Dioxide BUN Creatinine Glucose POC Glucose 174 H 117 H Calcium Lactate Dehydrogenase Troponin T C-Reactive Protein NT-Pro-B Natriuret Pep Total Protein Albumin LDL Cholesterol Direct TSH Arterial Blood Glucose Arterial Blood Ionized Calcium Salicylates Acetaminophen 07/15/20 07/15/20 07/15/20 04:57 12:12 17:19 Hct MCV RDW Plt Count Lymph % (Auto) [place] % (Auto) Lymph # (Auto) [place] # (Auto) Seg Neutrophils % Seg Neuts % (Manual) Lymphocytes % (Manual) Nucleated RBC % Seg Neutrophils # Lymphocytes # (Manual) PT INR D-Dimer ABG pH POC ABG pCO2 POC ABG pO2 ABG pO2 ABG HCO3 ABG O2 Saturation ABG Base Excess ABG Hemoglobin ABG Sodium ABG Glucose Oxyhemoglobin Potassium Chloride Carbon Dioxide BUN Creatinine Glucose POC Glucose 159 H 170 H 149 H Calcium Lactate Dehydrogenase Troponin T C-Reactive Protein NT-Pro-B Natriuret Pep Total Protein Albumin LDL Cholesterol Direct TSH Arterial Blood Glucose Arterial Blood Ionized Calcium Salicylates Acetaminophen 07/15/20 07/16/20 07/16/20 23:48 05:38 07:25 Hct MCV RDW 16.6 H Plt Count 96 L Lymph % (Auto) [place] % (Auto) Lymph # (Auto) [place] # (Auto) Seg Neutrophils % Seg Neuts % (Manual) Lymphocytes % (Manual) Nucleated RBC % Seg Neutrophils # Lymphocytes # (Manual) PT INR D-Dimer ABG pH POC ABG pCO2 POC ABG pO2 ABG pO2 ABG HCO3 ABG O2 Saturation ABG Base Excess ABG Hemoglobin ABG Sodium ABG Glucose Oxyhemoglobin Potassium Chloride Carbon Dioxide BUN Creatinine Glucose POC Glucose 159 H 156 H Calcium Lactate Dehydrogenase Troponin T C-Reactive Protein NT-Pro-B Natriuret Pep Total Protein Albumin LDL Cholesterol Direct TSH Arterial Blood Glucose Arterial Blood Ionized Calcium Salicylates Acetaminophen 07/16/20 07/16/20 07/16/20 07:25 11:31 17:21 Hct MCV RDW Plt Count Lymph % (Auto) [place] % (Auto) Lymph # (Auto) [place] # (Auto) Seg Neutrophils % Seg Neuts % (Manual) Lymphocytes % (Manual) Nucleated RBC % Seg Neutrophils # Lymphocytes # (Manual) PT INR D-Dimer ABG pH POC ABG pCO2 POC ABG pO2 ABG pO2 ABG HCO3 ABG O2 Saturation ABG Base Excess ABG Hemoglobin ABG Sodium ABG Glucose Oxyhemoglobin Potassium Chloride Carbon Dioxide 35 H BUN 19 H Creatinine 0.3 L Glucose 170 H POC Glucose 150 H 130 H Calcium Lactate Dehydrogenase Troponin T C-Reactive Protein NT-Pro-B Natriuret Pep Total Protein Albumin LDL Cholesterol Direct TSH Arterial Blood Glucose Arterial Blood Ionized Calcium Salicylates Acetaminophen 07/16/20 07/17/20 07/17/20 23:35 05:58 11:53 Hct MCV RDW Plt Count Lymph % (Auto) [place] % (Auto) Lymph # (Auto) [place] # (Auto) Seg Neutrophils % Seg Neuts % (Manual) Lymphocytes % (Manual) Nucleated RBC % Seg Neutrophils # Lymphocytes # (Manual) PT INR D-Dimer ABG pH POC ABG pCO2 POC ABG pO2 ABG pO2 ABG HCO3 ABG O2 Saturation ABG Base Excess ABG Hemoglobin ABG Sodium ABG Glucose Oxyhemoglobin Potassium Chloride Carbon Dioxide BUN Creatinine Glucose POC Glucose 128 H 132 H 126 H Calcium Lactate Dehydrogenase Troponin T C-Reactive Protein NT-Pro-B Natriuret Pep Total Protein Albumin LDL Cholesterol Direct TSH Arterial Blood Glucose Arterial Blood Ionized Calcium Salicylates Acetaminophen 07/17/20 07/17/20 07/17/20 15:40 17:14 23:10 Hct MCV RDW Plt Count Lymph % (Auto) [place] % (Auto) Lymph # (Auto) [place] # (Auto) Seg Neutrophils % Seg Neuts % (Manual) Lymphocytes % (Manual) Nucleated RBC % Seg Neutrophils # Lymphocytes # (Manual) PT INR D-Dimer ABG pH POC ABG pCO2 POC ABG pO2 ABG pO2 ABG HCO3 ABG O2 Saturation ABG Base Excess ABG Hemoglobin ABG Sodium ABG Glucose Oxyhemoglobin Potassium Chloride Carbon Dioxide 34 H BUN 19 H Creatinine 0.3 L Glucose 150 H POC Glucose 126 H 120 H Calcium Lactate Dehydrogenase Troponin T C-Reactive Protein NT-Pro-B Natriuret Pep Total Protein Albumin LDL Cholesterol Direct TSH Arterial Blood Glucose Arterial Blood Ionized Calcium Salicylates Acetaminophen 07/18/20 07/18/20 05:31 11:56 Hct MCV RDW Plt Count Lymph % (Auto) [place] % (Auto) Lymph # (Auto) [place] # (Auto) Seg Neutrophils % Seg Neuts % (Manual) Lymphocytes % (Manual) Nucleated RBC % Seg Neutrophils # Lymphocytes # (Manual) PT INR D-Dimer ABG pH POC ABG pCO2 POC ABG pO2 ABG pO2 ABG HCO3 ABG O2 Saturation ABG Base Excess ABG Hemoglobin ABG Sodium ABG Glucose Oxyhemoglobin Potassium Chloride Carbon Dioxide BUN Creatinine Glucose POC Glucose 122 H 114 H Calcium Lactate Dehydrogenase Troponin T C-Reactive Protein NT-Pro-B Natriuret Pep Total Protein Albumin LDL Cholesterol Direct TSH Arterial Blood Glucose Arterial Blood Ionized Calcium Salicylates Acetaminophen Allied health notes reviewed: RT
[2020-07-18] MEDS ORDERED: FUROSEMIDE 20 MG/2 ML INJ IV ONE (18:00)
[2020-07-18] MEDS: MELATONIN 5 MG TAB PO SCH (21:33)
[2020-07-18] MEDS ORDERED: MELATONIN 10 MG PO SCH (22:00)
[2020-07-19 00:40] LABS: Blood Urea Nitrogen 16 mg/dL (7-17); Calcium 8.3 mg/dL (8.4-10.2); Hemolysis Index 12
[2020-07-19] MEDS: dilTIAZem 60 MG TAB PO SCH ×4 (00:45→18:00)
[2020-07-19] MEDS: LACTULOSE 20 GM/30 ML ORAL LIQD PO SCH ×5 (00:45→18:02)
[2020-07-19 01:03] LABS: BUN/Creatinine Ratio 80
[2020-07-19] MEDS: IPRATROPIUM/ALBUTEROL SULFATE 3 ML AMPUL.NEB IH SCH ×4 (01:38→21:22)
[2020-07-19] MEDS: methylPREDNISolone Sod Succinate 125 MG/2 ML INJ IV SCH ×3 (06:12→21:29)
[2020-07-19] MEDS ORDERED: FUROSEMIDE 40 MG/4 ML INJ IV SCH (08:28)
[2020-07-19] MEDS: FAMOTIDINE 20 MG TAB PO SCH ×2 (09:36→21:28)
--- NOTE | 2020-07-19 10:12 | Progress Note ---
Assessment and Plan Assessment and plan: Patient is a 59-year-old female who presents to the emergency room from a local detention today with changes in mental status and generalized weakness. Most of the history was gotten from the emergency room staff as patient is unable to give any history at this time. Patient is currently intubated. Patient was brought to the emergency room by EMS and was initially on nonrebreather, she was hypoxic, blood pressure systolic was in the 80s and 90s and was unable to protect her airway and therefore subsequently intubated. Work-up in the emergency room today, chest x-ray did not reveal any significant abnormality. Labs shows elevated troponin. CTA of the chest reveals:1. No CT evidence for pulmonary embolism. 2. Bibasilar consolidation with associated tiny bilateral pleural effusions that could be due to pneumonia, aspiration, or atelectasis. 3. Additional diffuse interlobular septal thickening suggest a component of interstitial pulmonary edema. CT scan of the head reveals: Small 1 cm parenchymal hemorrhage in the left parietal juxtacortical region. Patient has been placed on empiric IV antibiotics for possible underlying pneumonia versus Covid. Neurosurgeon has also been consulted for evaluation of the findings on CT scan of the head. Acute and chronic hypoxic and hypercapnic respiratory failure Acute metabolic encephalopathy Intracranial hemorrhage incidental finding: No intervention at this time Right ICA stenosis: No intervention at this time Acute exacerbation of COPD Tobacco use disorder/Nicotine dependence (on going) Hypernatremia History of coronary artery disease/CHF History of HTN Chronic narcotic dependence Chronic back pain Anxiety disorder History of depression; Obesity; BMI 32.2 Suspected 2019 novel coronavirus: Tested negative 07/07/2020; patient was evaluated by ID and IV antibiotics discontinued. Pulmonary critical care is following. Neurosurgeon consulted in the emergency department and will follow the patient. Patient is still intubated and sedated and on mechanical ventilation, patient is still in the ED and will be transferred to ICU. Patient had episode of hypoglycemia yesterday and was treated according to hypoglycemia protocol. Patient was evaluated by cardiology for history paroxysmal A. fib and patient is not a candidate for anticoagulation because of anemia. 07/07/2020; patient has hypotension yesterday and requiring pressors and that evaluated and started her on IV cefepime and vancomycin. Patient has been fo llowed with Dr Valles and Dr. marx before. 07/09/2020; patient has hypertension and on pressors, on IV cefepime and vancomycin. Patient was seen by neurosurgery and recommend MRI once patient is stable. No neurosurgical intervention is needed. 07/10/2020: patient is pressors, on IV cefepime day 3/5. Patient was seen by neurosurgery and recommend MRI once patient is stable. No neurosurgical in tervention is needed. Pulmonary is following for vent management. 07/11/2020; patient is off pressors, on IV cefepime day 3/5. Patient was seen by neurosurgery and recommend MRI once patient is stable. No neurosurgical intervention is needed. Pulmonary is following for vent management. 07/12: No clinically changes, continue with current management,. remains on sedation, awaiting MRI. Patient remains a full code. 07/13: No new changes, will repeat Labs, wean vent as tolerated. Attempt to re ach family 07/14: Patient remains unresponsive. Continue to await MR brain. Continue weaning from the ventilator. ID has discontinued abx and signed off. Wean sedatives. No seizure epsidoe reported. 07/15: Continue supportive care wean sedation as tolerated. Monitor for any seizure activity. Cardiology input noted. 07/16: Wean sedation as tolerated, patient cardizem 60 mg by NG tube every 6 hours, and IV metoprolol 5 mg as needed for heart rate control. With regards to anticoagulation, she has previously been regarded a poor risk for long-term oral anticoagulation due to chronic anemia. her mental status appears to be improved this am, will continue vent weaning, 07/17: Continue weaning trial, midazolam stopped today. Restriants renewed, trial of lasix today. 07/18: Patient successfully extubated to nasal cannula doing well no new complaints. We will reevaluate home medications and reinitiate. Appears patient was on amiodarone and also metoprolol outpatient. And a few other medications including Seroquel. Ideally want to monitor patient in the ICU for at least 24 hours prior to transfer. 07/19: Patient has improved remarkably. Her swelling has improved also. She is tolerating some diet. She was transferred to the medical floor yesterday and has continued to do well have treated her with some additional Lasix. She will need outpatient follow-up with neurosurgery. She did have an MRI done IMPRESSION: 1. The findings correlate with the earlier CT of 07/06/2020 demonstrating small foci of subacute blood involving posterior frontal lobes as detailed above. 2. The study is limited by motion. However, there is otherwise moderate chronic microvascular angiopathy. No further input was requested by neurosurgery. Chest x-ray showed LUNGS/PLEURA: Mild diffuse interstitial prominence with mild patchy bibasilar predominant airspace disease. Etiology of her overall decompensation at the detention is still unknown at this time today and could be secondary to the subacute hemorrhage noted. Her clinical mental status has improved. Physical therapy has been obtained. And based on improvement in in her debility and also pulmonary status she should be able to discharge in the next 24 to 48 hours History Interval history: Patient seen and examined extubated and doing well. Awake this morning, following commands, no agitation noted overnight. Hospitalist Physical - Physical exam Narrative exam: VITAL SIGNS: Reviewed. GENERAL: The patient appears normally developed, vital signs as documented. HEAD: No signs of head trauma. EYES: Pupils are equal. Extraocular motions intact. EARS: hearing intact MOUTH: Oropharyngeal intact. NECK: No adenopathy, no JVD. CHEST: Chest with clear breath sounds bilaterally. No wheezes, rales, or rhonchi. CARDIAC: Regular rate and rhythm. S1 and S2, without murmurs, gallops, or rubs. VASCULAR: Generalized Edema. Peripheral pulses normal and equal in all extremities. ABDOMEN: Soft, non tender and non distended. No rebound or guarding, and no masses palpated. Bowel Sounds normal. MUSCULOSKELETAL: Extremities without clubbing, cyanosis. +2 pitting edema. NEUROLOGIC EXAM: following commands PSYCHIATRIC: Mood status is stable SKIN: detail exam as documented in skin assessment - Constitutional Vitals: Temp Pulse Resp BP Pulse Ox 99.3 F 86 20 115/61 94 07/19/20 08:11 07/19/20 08:11 07/19/20 08:11 07/19/20 08:11 07/19/20 08:35 General appearance: Present: other (intubated on the vent) HEART Score - HEART Score Troponin: Troponin T 0.032 ng/mL (0.00-0.029) H 07/05/20 23:06 Results - Labs CBC & Chem 7: 07/16/20 07:25 07/19/20 00:10 Labs: Laboratory Last Values WBC 7.2 K/mm3 (4.5-11.0) 07/16/20 07:25 RBC 4.27 M/mm3 (3.65-5.03) 07/16/20 07:25 Hgb 12.5 gm/dl (10.1-14.3) 07/16/20 07:25 Hct 39.3 % (30.3-42.9) 07/16/20 07:25 MCV 92 fl (79-97) 07/16/20 07:25 MCH 29 pg (28-32) 07/16/20 07:25 MCHC 32 % (30-34) 07/16/20 07:25 RDW 16.6 % (13.2-15.2) H 07/16/20 07:25 Plt Count 96 K/mm3 (140-440) L 07/16/20 07:25 Lymph % (Auto) 7.2 % (13.4-35.0) L 07/06/20 11:09 [place] % (Auto) [place] 07/07/20 05:15 Eos % (Auto) 0.0 % (0.0-4.3) 07/06/20 11:09 Baso % (Auto) 0.1 % (0.0-1.8) 07/06/20 11:09 Lymph # (Auto) 0.7 K/mm3 (1.2-5.4) L 07/06/20 11:09 [place] # (Auto) 1.1 K/mm3 (0.0-0.8) H 07/06/20 11:09 Eos # (Auto) 0.0 K/mm3 (0.0-0.4) 07/06/20 11:09 Baso # (Auto) 0.0 K/mm3 (0.0-0.1) 07/06/20 11:09 Add Manual Diff Complete 07/13/20 09:50 Total Counted 100 07/13/20 09:50 Seg Neutrophils % [place] 07/13/20 09:50 Seg Neuts % (Manual) 96.0 % (40.0-70.0) H 07/13/20 09:50 Band Neutrophils % 0 % 07/13/20 09:50 Lymphocytes % (Manual) 3.0 % (13.4-35.0) L 07/13/20 09:50 Reactive Lymphs % (Man) 0 % 07/13/20 09:50 Monocytes % (Manual) 1.0 % (0.0-7.3) 07/13/20 09:50 Eosinophils % (Manual) 0 % (0.0-4.3) 07/13/20 09:50 Basophils % (Manual) 0 % (0.0-1.8) 07/13/20 09:50 Metamyelocytes % 0 % 07/13/20 09:50 Myelocytes % 0 % 07/13/20 09:50 Promyelocytes % 0 % 07/13/20 09:50 Blast Cells % 0 % 07/13/20 09:50 Nucleated RBC % Not Reportable 07/13/20 09:50 Seg Neutrophils # 7.9 K/mm3 (1.8-7.7) H 07/06/20 11:09 Seg Neutrophils # Man 6.9 K/mm3 (1.8-7.7) 07/13/20 09:50 Band Neutrophils # 0.0 K/mm3 07/13/20 09:50 Lymphocytes # (Manual) 0.2 K/mm3 (1.2-5.4) L 07/13/20 09:50 Abs React Lymphs (Man) 0.0 K/mm3 07/13/20 09:50 Monocytes # (Manual) 0.1 K/mm3 (0.0-0.8) 07/13/20 09:50 Eosinophils # (Manual) 0.0 K/mm3 (0.0-0.4) 07/13/20 09:50 Basophils # (Manual) 0.0 K/mm3 (0.0-0.1) 07/13/20 09:50 Metamyelocytes # 0.0 K/mm3 07/13/20 09:50 Myelocytes # 0.0 K/mm3 07/13/20 09:50 Promyelocytes # 0.0 K/mm3 07/13/20 09:50 Blast Cells # 0.0 K/mm3 07/13/20 09:50 WBC Morphology Not Reportable 07/13/20 09:50 Hypersegmented Neuts Not Reportable 07/13/20 09:50 Hyposegmented Neuts Not Reportable 07/13/20 09:50 Hypogranular Neuts Not Reportable 07/13/20 09:50 Smudge Cells Not Reportable 07/13/20 09:50 Toxic Granulation Not Reportable 07/13/20 09:50 Toxic Vacuolation Not Reportable 07/13/20 09:50 Dohle Bodies Not Reportable 07/13/20 09:50 Pelger-Huet Anomaly Not Reportable 07/13/20 09:50 Marissa Rods Not Reportable 07/13/20 09:50 Platelet Estimate Consistent w auto 07/13/20 09:50 Clumped Platelets Not Reportable 07/13/20 09:50 Plt Clumps, EDTA Not Reportable 07/13/20 09:50 Large Platelets Not Reportable 07/13/20 09:50 Giant Platelets Not Reportable 07/13/20 09:50 Platelet Satelliting Not Reportable 07/13/20 09:50 Plt Morphology Comment Not Reportable 07/13/20 09:50 RBC Morphology Normal 07/13/20 09:50 Dimorphic RBCs Not Reportable 07/13/20 09:50 Polychromasia Not Reportable 07/13/20 09:50 Hypochromasia Not Reportable 07/13/20 09:50 Poikilocytosis Not Reportable 07/13/20 09:50 Anisocytosis Not Reportable 07/13/20 09:50 Microcytosis Not Reportable 07/13/20 09:50 Macrocytosis Not Reportable 07/13/20 09:50 Spherocytes Not Reportable 07/13/20 09:50 Pappenheimer Bodies Not Reportable 07/13/20 09:50 Sickle Cells Not Reportable 07/13/20 09:50 Target Cells Not Reportable 07/13/20 09:50 Tear Drop Cells Not Reportable 07/13/20 09:50 Ovalocytes Not Reportable 07/13/20 09:50 Helmet Cells Not Reportable 07/13/20 09:[address] [place] Bodies Not Reportable 07/13/20 09:50 [place] Rings Not Reportable 07/13/20 09:50 Demi Cells Not Reportable 07/13/20 09:50 Bite Cells Not Reportable 07/13/20 09:50 Crenated Cell Not Reportable 07/13/20 09:50 Elliptocytes Not Reportable 07/13/20 09:50 Acanthocytes (Spur) Not Reportable 07/13/20 09:50 Rouleaux Not Reportable 07/13/20 09:50 Hemoglobin C Crystals Not Reportable 07/13/20 09:50 Schistocytes Not Reportable 07/13/20 09:50 Malaria parasites Not Reportable 07/13/20 09:50 Ab Bodies Not Reportable 07/13/20 09:50 Hem Pathologist Commnt No 07/13/20 09:50 PT 14.5 Sec. (12.2-14.9) 07/07/20 05:15 INR 1.12 (0.87-1.13) 07/07/20 05:15 APTT 30.8 Sec. (24.2-36.6) 07/05/20 23:06 D-Dimer 1298.20 ng/mlDDU (0-234) H 07/05/20 23:06 ABG pH 7.434 pH Units (7.350-7.450) 07/14/20 04:05 POC ABG pCO2 50.3 mmHg (32.0-48.0) H 07/13/20 22:00 ABG pCO2 48.5 mm Hg 07/14/20 04:05 POC ABG pO2 69.1 mmHg (83-108) L 07/13/20 03:33 ABG pO2 69.1 mm Hg (80.0-90.0) L 07/14/20 04:05 POC ABG HCO3 29.0 07/13/20 22:00 ABG HCO3 31.8 mmol/L (20.0-26.0) H 07/14/20 04:05 ABG O2 Saturation 94.8 % (95.0-99.0) L 07/14/20 04:05 ABG O2 Content 15.3 (0.0-44) 07/14/20 04:05 POC ABG Base Excess 3.0 07/13/20 22:00 ABG Base Excess 6.6 mmol/L (-2.0-3.0) H 07/14/20 04:05 ABG Hemoglobin 11.7 gm/dl (12.0-16.0) L 07/14/20 04:05 ABG Carboxyhemoglobin 1.5 % (0.0-5.0) 07/14/20 04:05 ABG Methemoglobin 0.4 % (0.0-1.5) 07/14/20 04:05 ABG Sodium 137.5 mmol/L (136.0-145.0) 07/13/20 22:00 ABG Potassium 4.1 mmol/L (3.40-4.50) 07/13/20 22:00 ABG Chloride 103.0 mmol/L (98-107) 07/13/20 22:00 ABG Glucose 128 mg/dL (65-95) H 07/13/20 22:00 Oxyhemoglobin 93.0 % (95.0-99.0) L 07/14/20 04:05 FiO2 40 % 07/14/20 04:05 Sodium 141 mmol/L (137-145) 07/19/20 00:10 Potassium 3.6 mmol/L (3.6-5.0) 07/19/20 00:10 Chloride 100.5 mmol/L (98-107) 07/19/20 00:10 Carbon Dioxide 32 mmol/L (22-30) H 07/19/20 00:10 Anion Gap 12 mmol/L 07/19/20 00:10 BUN 16 mg/dL (7-17) 07/19/20 00:10 Creatinine 0.2 mg/dL (0.6-1.2) L 07/19/20 00:10 Estimated GFR > 60 ml/min 07/19/20 00:10 BUN/Creatinine Ratio 80 % 07/19/20 00:10 Glucose 161 mg/dL (65-100) H 07/19/20 00:10 POC Glucose 171 mg/dL (70-105) H 07/19/20 08:13 Lactic Acid 0.80 mmol/L (0.7-2.0) 07/05/20 23:06 Calcium 8.3 mg/dL (8.4-10.2) L 07/19/20 00:10 Magnesium 2.00 mg/dL (1.7-2.3) 07/05/20 23:06 Ferritin 60.8 ng/mL (10.0-200.0) 07/05/20 23:06 Total Bilirubin 0.30 mg/dL (0.1-1.2) 07/06/20 Unknown AST 13 units/L (5-40) 07/06/20 Unknown ALT 10 units/L (7-56) 07/06/20 Unknown Alkaline Phosphatase 71 units/L (35-129) 07/06/20 Unknown Ammonia 40.0 umol/L (25-60) 07/05/20 23:06 Lactate Dehydrogenase 217 units/L (91-180) H 07/05/20 23:06 Lactate Dehydrogenase 217 units/L (91-180) H 07/05/20 23:06 Total Creatine Kinase 55 units/L (30-135) 07/05/20 23:06 Troponin T 0.032 ng/mL (0.00-0.029) H 07/05/20 23:06 C-Reactive Protein 1.60 mg/dL (0.00-1.30) H 07/05/20 23:06 C-Reactive Protein 1.60 mg/dL (0.00-1.30) H 07/05/20 23:06 NT-Pro-B Natriuret Pep 63915 pg/mL (0-900) H 07/06/20 11:09 Total Protein 4.4 g/dL (6.3-8.2) L 07/06/20 Unknown Albumin 2.2 g/dL (3.9-5) L 07/06/20 Unknown Albumin/Globulin Ratio 1.0 % 07/06/20 Unknown Triglycerides 126 mg/dL (2-149) 07/05/20 23:06 Cholesterol 109 mg/dL (50-199) 07/05/20 23:06 LDL Cholesterol Direct 43 mg/dL (50-130) L 07/05/20 23:06 HDL Cholesterol 42 mg/dL (40-59) 07/05/20 23:06 Cholesterol/HDL Ratio 2.59 % 07/05/20 23:06 Procalcitonin < 0.05 ng/mL (<0.15) 07/05/20 23:06 TSH 15.130 mlU/mL (0.270-4.200) H 07/05/20 23:06 Free T4 0.79 ng/dL (0.76-1.46) 07/06/20 11:09 Arterial Blood Glucose 128 mg/dL (65-95) H 07/13/20 22:00 Arterial Blood Ionized Calcium 4.9 mg/dL (4.6-5.3) 07/13/20 22:00 Urine Color Mildred (Yellow) 07/05/20 Unknown Urine Turbidity Clear (Clear) 07/05/20 Unknown Urine pH 5.0 (5.0-7.0) 07/05/20 Unknown Ur Specific [place] 1.025 (1.003-1.030) 07/05/20 Unknown Urine Protein 30 mg/dl mg/dL (Negative) 07/05/20 Unknown Urine Glucose (UA) Neg mg/dL (Negative) 07/05/20 Unknown Urine Ketones Neg mg/dL (Negative) 07/05/20 Unknown Urine Blood Neg (Negative) 07/05/20 Unknown Urine Nitrite Neg (Negative) 07/05/20 Unknown Urine Bilirubin Neg (Negative) 07/05/20 Unknown Urine Urobilinogen 4.0 mg/dL (<2.0) 07/05/20 Unknown Ur Leukocyte Esterase Neg (Negative) 07/05/20 Unknown Urine WBC (Auto) 2.0 /HPF (0.0-6.0) 07/05/20 Unknown Urine RBC (Auto) 1.0 /HPF (0.0-6.0) 07/05/20 Unknown U Epithel Cells (Auto) 1.0 /HPF (0-13.0) 07/05/20 Unknown Hyaline Casts 16 /LPF 07/05/20 Unknown Urine Mucus Few /HPF 07/05/20 Unknown Salicylates < 0.3 mg/dL (2.8-20.0) L 07/05/20 23:06 Acetaminophen < 5.0 ug/mL (10.0-30.0) L 07/05/20 23:06 Plasma/Serum Alcohol < 0.01 % (0-0.07) 07/05/20 23:06 Coronavirus (PCR) Negative (Negative) 07/06/20 Unknown Blood Type O POSITIVE 07/05/20 23:10 Antibody Screen Negative 07/05/20 23:10 Roberts/IV: Voiding Method External Female Catheter IV Catheter Type [Right Upper PICC Line arm] IV Catheter Type [Right INT / Saline Lock External Jugular] IV Catheter Type [Left Triple Lumen Cath Internal Jugular] Active Medications - Current Medications Current Medications: Generic Name Dose Route Start Last Admin Trade Name Freq PRN Reason Stop Dose Admin Acetaminophen 650 mg 07/06/20 02:44 Tylenol [place] Q4H PRN Pain, Mild (1-3) Acetaminophen 650 mg 07/18/20 17:16 Tylenol PO Q4H PRN Pain, Mild (1-3) Albuterol/Ipratropium 1 ampul 07/18/20 10:00 07/19/20 07:36 Duoneb *Not For Prn Use* IH 1 ampul Q8HRT LUZ MARIA Administration Lipase/Protease/Amylase 1 each 07/08/20 14:30 Kenn Casper 10,500 Unit FEEDTUBE PRN PRN For Clogged Feeding Tube Atorvastatin Calcium 40 mg 07/18/20 22:00 07/18/20 21:33 Lipitor PO 40 mg QHS LUZ MARIA Administration Bisacodyl 10 mg 07/06/20 02:44 Dulcolax [place] QDAY PRN Constipation unrelieved by MOM Dextrose 0 ml 07/06/20 19:30 07/06/20 19:25 D50w (25gm) Syringe IV 30 ml ONCE PRN Administration Hypoglycemia Diltiazem HCl 60 mg 07/14/20 14:00 07/19/20 06:12 Cardizem PO 60 mg Q6HR LUZ MARIA Administration Famotidine 20 mg 07/09/20 10:00 07/19/20 09:36 Pepcid PO 20 mg BID LUZ MARIA Administration Furosemide 40 mg 07/19/20 08:28 07/19/20 09:36 Lasix IV 07/19/20 10:28 40 mg ONCE LUZ MARIA Administration Hydralazine HCl 5 mg 07/06/20 02:30 Apresoline IV Q30MIN PRN Hypertension Hydrophilic Ointment 1 applic 07/05/20 22:08 Vaseline Lip Therapy TP Q2HR PRN Dry Lips Lactulose 20 gm 07/18/20 12:00 07/19/20 06:12 Cephulac PO 20 gm Q6HR LUZ MARIA Administration Magnesium Hydroxide 30 ml 07/14/20 12:06 Milk Of Magnesia PO Q4H PRN Constipation Melatonin 10 mg 07/18/20 22:00 07/18/20 21:33 Melatonin PO 10 mg QHS LUZ MARIA Administration Methylprednisolone Sodium Succinate 60 mg 07/08/20 22:00 07/19/20 06:12 Solu-Medrol IV 60 mg Q8HR LUZ MARIA Administration Metoprolol Tartrate 5 mg 07/14/20 13:20 Metoprolol IV Q6HR PRN HR >120 Multi-Ingred Cream/Lotion/Oil/Oint 1 applic 07/05/20 22:08 Artificial Tears Ophth Oint OU Q4HR PRN Dry Eye(s) Ondansetron HCl 4 mg 07/06/20 02:44 Zofran IV Q8H PRN N/V unrelieved by Live Quetiapine Fumarate 200 mg 07/15/20 22:00 07/18/20 21:33 Seroquel PO 200 mg BID LUZ MARIA Administration Simple Syrup 15 ml 07/08/20 14:30 Simple Syrup FEEDTUBE PRN PRN Hypoglycemia Simple Syrup 30 ml 07/08/20 14:30 Simple Syrup FEEDTUBE PRN PRN Hypoglycemia Sodium Bicarbonate 325 mg 07/08/20 14:30 Sodium Bicarbonate FEEDTUBE PRN PRN For Clogged Feeding Tube Sodium Chloride 10 ml 07/06/20 10:00 07/19/20 09:36 Sodium Chloride Flush Syringe 10 Ml IV 10 ml BID LUZ MARIA Administration Sodium Chloride 10 ml 07/06/20 02:44 07/17/20 05:03 Sodium Chloride Flush Syringe 10 Ml IV 10 ml PRN PRN Administration LINE FLUSH Nutrition/Malnutrition Assess - Dietary Evaluation Nutrition/Malnutrition Findings: Nutrition Notes Start: 07/06/20 09:30 Freq: Status: Active Protocol: Document 07/14/20 12:42 LP (Rec: 07/14/20 12:44 LP [id number]) Nutrition Notes Initial or Follow up Reassessment Current Diagnosis COPD,Heart Failure,Respiratory Failure Other Pertinent Diagnosis Acute enephalopathy, COVID-19 negative, Intracranial hemorrhage Current Diet Promote at 60ml/hr Labs/Tests Reviewed Pertinent Medications Reviewed Height 5 ft Weight 71.214 kg [place] Body Weight (kg) 45.45 BMI 30.7 Weight Status Obese Subjective/Other Information Pt tolerating Promote at 60ml/ hr (goal rate). Percent of energy/protein needs met: 99%/99% Burn Absent Trauma Absent Food Allergy No Current % PO Negligible Minimum of two criteria No physical signs of malnutrition #1 Nutrition Diagnosis Inadequate oral intake Diagnosis Progress(for reassessment Continues documentation) Is patient on ventilator? Yes Is Patient Ambulatory and/or Out of Bed No REE-([facility]-confined to bed) [phone] Calculation Used for Recommendations [facility] Additional Notes Protein: >2 g/kg IBW: >91g Fluid: 1 ml/kcal Nutrition Intervention Change Diet Order: TF Nutrition Support: Promote 1.0 at 60 ml/hr (goal rate) Flush 50ml q4h Kcal 1,440 Protein (gm) 90 Fluid (mL) 1,208 Goal #1 Meet at least 80% of kcal and protein needs via TF Anticipated Discharge Needs: Unable to determine at this time Follow-Up By: 07/21/20 Additional Comments Follow for stable TF and labs
--- NOTE | 2020-07-19 10:17 | Progress Note ---
Assessment and Plan Hx of Paroxysmal Atrial flutter/afib/MAT not on anticoagulation secondary to history of melena and anemia. on Diltiazem for suppression History of IA/Coronary artery disease 01/2020 echo: normal LVEF 50-55% 2017 [facility] at [facility]: [employer] of the RCA recommend for medical therapy. She did undergo PCI of the mid LAD using bare metal stent. Altered mental status -reason for admission initial head CT scan showed small 1 cm parenchymal hemorrhage in the left parietal juxtacortical region. Chest CTA negative for PE Respiratory failure negative for COVID 19 COPD on home oxygen Hypothyroidism TSH at 15.1 Recommend: Continue medical therapy for underlying coronary artery disease and paroxysmal atrial fibrillation. Subjective Date of service: 07/19/20 Principal diagnosis: Ac and ch hypoxic & hypercapnic resp failure; AE-COPD; Tobacco use disorder Interval history: Patient has no cardiac complaints. Sinus rhythm on telemetry. Objective Vital Signs Temp Pulse Pulse Pulse Resp Resp BP 07/19/20 08:35 07/19/20 08:11 99.3 F 86 20 115/61 07/19/20 07:40 88 18 07/19/20 06:21 88 07/19/20 06:12 84 145/77 07/19/20 03:35 07/19/20 03:34 98.1 F 84 18 145/77 07/19/20 00:45 86 07/19/20 00:00 83 16 07/18/20 23:40 98.1 F 84 16 142/77 07/18/20 20:07 99.1 F 109 H 18 07/18/20 18:10 86 20 07/18/20 18:00 95 H 23 148/77 07/18/20 17:30 92 H 25 H 148/76 07/18/20 17:29 97 H 159/79 07/18/20 17:00 93 H 18 159/79 07/18/20 16:30 83 25 H 149/82 07/18/20 16:00 80 26 H 152/80 07/18/20 15:52 98.1 F 07/18/20 15:30 76 25 H 146/70 07/18/20 15:00 75 22 148/69 07/18/20 14:30 74 23 139/72 07/18/20 14:00 72 20 132/65 07/18/20 13:30 76 22 131/68 07/18/20 13:00 83 23 140/72 07/18/20 12:30 90 22 145/77 07/18/20 12:13 89 142/77 07/18/20 12:00 98.0 F 89 23 142/77 07/18/20 11:30 89 25 H 145/77 07/18/20 11:00 84 23 149/72 07/18/20 10:30 91 H 17 153/86 BP Pulse Ox 07/19/20 08:35 94 07/19/20 08:11 90 07/19/20 07:40 07/19/20 06:21 07/19/20 06:12 07/19/20 03:35 94 07/19/20 03:34 89 07/19/20 00:45 07/19/20 00:00 95 07/18/20 23:40 81 L 07/18/20 20:07 130/75 94 07/18/20 18:10 07/18/20 18:00 95 07/18/20 17:30 93 07/18/20 17:29 07/18/20 17:00 91 07/18/20 16:30 94 07/18/20 16:00 94 07/18/20 15:52 07/18/20 15:30 94 07/18/20 15:00 93 07/18/20 14:30 94 07/18/20 14:00 94 07/18/20 13:30 95 07/18/20 13:00 95 07/18/20 12:30 94 07/18/20 12:13 07/18/20 12:00 94 07/18/20 11:30 95 07/18/20 11:00 94 07/18/20 10:30 94 - Physical Examination General: No Apparent Distress HEENT: Positive: PERRL Neck: Positive: neck supple Cardiac: Positive: Reg Rate and Rhythm Lungs: Positive: Rhonchi Neuro: Positive: Weakness Extremities: Absent: edema - Labs and Meds Comprehensive Metabolic Panel 07/19/20 Range/Units 00:10 Sodium 141 (137-145) mmol/L Potassium 3.6 (3.6-5.0) mmol/L Chloride 100.5 (98-107) mmol/L Carbon Dioxide 32 H (22-30) mmol/L BUN 16 (7-17) mg/dL Creatinine 0.2 L (0.6-1.2) mg/dL Glucose 161 H (65-100) mg/dL Calcium 8.3 L (8.4-10.2) mg/dL - Allied health notes Allied health notes reviewed: RT
--- NOTE | 2020-07-19 13:43 | Progress Note ---
Assessment and Plan Patient awake. Patient presently resting on 3 litres O2. O2 saturation 92%. Denies shortness of breath, cough or chest pain at rest. BIPAP standby in the room. Patient afebrile, No leukocytosis. Chest xray done 07/15/20 reported mild diffuse interstitial prominence with mild patchy bibasilar predominant airspace disease. ABGs done on 40% FIO2. ABG pH 7.434 pH Units (7.350-7.450) 07/14/20 04:05 POC ABG pCO2 50.3 mmHg (32.0-48.0) H 07/13/20 22:00 ABG pCO2 48.5 mm Hg 07/14/20 04:05 POC ABG pO2 69.1 mmHg (83-108) L 07/13/20 03:33 ABG pO2 69.1 mm Hg (80.0-90.0) L 07/14/20 04:05 POC ABG HCO3 29.0 07/13/20 22:00 ABG O2 Saturation 94.8 % (95.0-99.0) L 07/14/20 04:05 Patient presently on albuterol/atrovent aerosol treatments q 8 hous, Methyl prednisone and Famotidine. - Patient Problems (1) Acute respiratory failure Current Visit: Yes Status: Acute Qualifiers: Respiratory failure complication: hypoxia Qualified Code(s): J96.01 - Acute respiratory failure with hypoxia Plan to address problem: O2 3 litres via nasal canula. Albuterol/atrovent aerosol treatments q 6 hours. BIPAP stand by in the room. Continue methyl prednisone. SCDs Continue famotidine. Antibiotics as per ID. (2) Suspected 2019 novel coronavirus infection Current Visit: Yes Status: Acute Plan to address problem: Vyas virus test reported negative. (3) Acute encephalopathy Current Visit: Yes Status: Acute Plan to address problem: Management as per primary care . (4) Intracranial hemorrhage Current Visit: Yes Status: Acute Plan to address problem: Management as per primary care and neurology. (5) Paroxysmal atrial fibrillation Current Visit: Yes Status: Acute Plan to address problem: Mangement as per primary care and cardiology. Subjective Date of service: 07/19/20 Principal diagnosis: Ac and ch hypoxic & hypercapnic resp failure; AE-COPD; Tobacco use disorder Interval history: Patient awake. Patient presently resting on 3 litres O2. O2 saturation 92%. Denies shortness of breath, cough or chest pain at rest. BIPAP standby in the room. Patient afebrile, No leukocytosis. Chest xray done 07/15/20 reported mild diffuse interstitial prominence with mild patchy bibasilar predominant airspace disease. ABGs done on 40% FIO2. ABG pH 7.434 pH Units (7.350-7.450) 07/14/20 04:05 POC ABG pCO2 50.3 mmHg (32.0-48.0) H 07/13/20 22:00 ABG pCO2 48.5 mm Hg 07/14/20 04:05 POC ABG pO2 69.1 mmHg (83-108) L 07/13/20 03:33 ABG pO2 69.1 mm Hg (80.0-90.0) L 07/14/20 04:05 POC ABG HCO3 29.0 07/13/20 22:00 ABG O2 Saturation 94.8 % (95.0-99.0) L 07/14/20 04:05 Patient presently on albuterol/atrovent aerosol treatments q 8 hous, Methyl prednisone and Famotidine. Objective Vital Signs - 12hr 07/19/20 07/19/20 07/19/20 03:34 03:35 06:12 Temperature 98.1 F Pulse Rate 84 84 Pulse Rate [ Bilateral Throughout] Pulse Rate [ From Monitor] Respiratory 18 Rate Respiratory Rate [Bilateral Throughout] Blood Pressure 145/77 145/77 O2 Sat by Pulse 89 94 Oximetry 07/19/20 07/19/20 07/19/20 06:21 07:40 08:11 Temperature 99.3 F Pulse Rate 88 86 Pulse Rate [ 88 Bilateral Throughout] Pulse Rate [ From Monitor] Respiratory 20 Rate Respiratory 18 Rate [Bilateral Throughout] Blood Pressure 115/61 O2 Sat by Pulse 90 Oximetry 07/19/20 07/19/20 08:35 13:20 Temperature Pulse Rate Pulse Rate [ Bilateral Throughout] Pulse Rate [ 86 From Monitor] Respiratory 18 Rate Respiratory Rate [Bilateral Throughout] Blood Pressure O2 Sat by Pulse 94 95 Oximetry Constitutional: no acute distress, alert Eyes: non-icteric ENT: oropharynx moist Neck: supple Effort: mildly labored Ascultation: Bilateral: diminished breath sounds, rhonchi (scant) Percussion: Bilateral: not dull Cardiovascular: regular rate and rhythm, other (sinus tach) Gastrointestinal: normoactive bowel sounds, soft, non-tender, non-distended (protuberant) Integumentary: rash Extremities: no cyanosis, pink and warm, no ischemia or petechiae, edema (bilate ral upper extremity) Neurologic: non-focal exam (grossly), pupils equal and round Psychiatric: depressed CBC and BMP: 07/16/20 07:25 07/19/20 00:10 ABG, PT/INR, D-dimer: ABG ABG pH 7.434 pH Units (7.350-7.450) 07/14/20 04:05 POC ABG pCO2 50.3 mmHg (32.0-48.0) H 07/13/20 22:00 ABG pCO2 48.5 mm Hg 07/14/20 04:05 POC ABG pO2 69.1 mmHg (83-108) L 07/13/20 03:33 ABG pO2 69.1 mm Hg (80.0-90.0) L 07/14/20 04:05 POC ABG HCO3 29.0 07/13/20 22:00 ABG O2 Saturation 94.8 % (95.0-99.0) L 07/14/20 04:05 PT/INR, D-dimer PT 14.5 Sec. (12.2-14.9) 07/07/20 05:15 INR 1.12 (0.87-1.13) 07/07/20 05:15 D-Dimer 1298.20 ng/mlDDU (0-234) H 07/05/20 23:06 Abnormal lab findings: Abnormal Labs 07/05/20 07/05/20 07/05/20 22:55 23:06 23:06 Hct MCV RDW Plt Count Lymph % (Auto) [place] % (Auto) Lymph # (Auto) [place] # (Auto) Seg Neutrophils % Seg Neuts % (Manual) Lymphocytes % (Manual) Nucleated RBC % Seg Neutrophils # Lymphocytes # (Manual) PT 15.2 H INR 1.18 H D-Dimer 1298.20 H ABG pH POC ABG pCO2 POC ABG pO2 ABG pO2 227.3 H ABG HCO3 31.3 H ABG O2 Saturation 99.3 H ABG Base Excess 5.8 H ABG Hemoglobin ABG Sodium ABG Glucose Oxyhemoglobin Potassium Chloride Carbon Dioxide BUN 31 H Creatinine Glucose POC Glucose Calcium 7.7 L Lactate Dehydrogenase 217 H Troponin T 0.032 H C-Reactive Protein 1.60 H NT-Pro-B Natriuret Pep Total Protein 5.2 L Albumin 2.6 L LDL Cholesterol Direct 43 L TSH Arterial Blood Glucose Arterial Blood Ionized Calcium Salicylates Acetaminophen 07/05/20 07/05/20 07/05/20 23:06 23:06 23:06 Hct MCV RDW Plt Count Lymph % (Auto) [place] % (Auto) Lymph # (Auto) [place] # (Auto) Seg Neutrophils % Seg Neuts % (Manual) Lymphocytes % (Manual) Nucleated RBC % Seg Neutrophils # Lymphocytes # (Manual) PT INR D-Dimer ABG pH POC ABG pCO2 POC ABG pO2 ABG pO2 ABG HCO3 ABG O2 Saturation ABG Base Excess ABG Hemoglobin ABG Sodium ABG Glucose Oxyhemoglobin Potassium Chloride Carbon Dioxide BUN Creatinine Glucose POC Glucose Calcium Lactate Dehydrogenase Troponin T C-Reactive Protein NT-Pro-B Natriuret Pep Total Protein Albumin LDL Cholesterol Direct TSH 15.130 H Arterial Blood Glucose Arterial Blood Ionized Calcium Salicylates < 0.3 L Acetaminophen < 5.0 L 07/05/20 07/05/20 07/06/20 23:06 23:42 06:58 Hct MCV 98 H RDW 19.8 H Plt Count Lymph % (Auto) [place] % (Auto) 15.9 H Lymph # (Auto) 0.9 L [place] # (Auto) 1.0 H Seg Neutrophils % Seg Neuts % (Manual) Lymphocytes % (Manual) Nucleated RBC % Seg Neutrophils # Lymphocytes # (Manual) PT INR D-Dimer ABG pH 7.533 H POC ABG pCO2 20.7 L POC ABG pO2 ABG pO2 ABG HCO3 ABG O2 Saturation ABG Base Excess ABG Hemoglobin 7.6 L ABG Sodium 132.3 L ABG Glucose 55 L Oxyhemoglobin Potassium Chloride Carbon Dioxide BUN Creatinine Glucose POC Glucose Calcium Lactate Dehydrogenase 217 H Troponin T C-Reactive Protein 1.60 H NT-Pro-B Natriuret Pep Total Protein Albumin LDL Cholesterol Direct TSH Arterial Blood Glucose 55 L Arterial Blood Ionized Calcium 4.3 L Salicylates Acetaminophen 07/06/20 07/06/20 07/06/20 11:09 11:09 17:46 Hct 43.0 H MCV 100 H RDW 20.8 H Plt Count Lymph % (Auto) 7.2 L [place] % (Auto) 11.4 H Lymph # (Auto) 0.7 L [place] # (Auto) 1.1 H Seg Neutrophils % 81.3 H Seg Neuts % (Manual) Lymphocytes % (Manual) Nucleated RBC % Seg Neutrophils # 7.9 H Lymphocytes # (Manual) PT INR D-Dimer ABG pH POC ABG pCO2 POC ABG pO2 ABG pO2 ABG HCO3 ABG O2 Saturation ABG Base Excess ABG Hemoglobin ABG Sodium ABG Glucose Oxyhemoglobin Potassium Chloride Carbon Dioxide BUN Creatinine Glucose POC Glucose 43 L Calcium Lactate Dehydrogenase Troponin T C-Reactive Protein NT-Pro-B Natriuret Pep 31620 H Total Protein Albumin LDL Cholesterol Direct TSH Arterial Blood Glucose Arterial Blood Ionized Calcium Salicylates Acetaminophen 07/06/20 07/06/20 07/07/20 19:31 Unknown 04:55 Hct MCV RDW Plt Count Lymph % (Auto) [place] % (Auto) Lymph # (Auto) [place] # (Auto) Seg Neutrophils % Seg Neuts % (Manual) Lymphocytes % (Manual) Nucleated RBC % Seg Neutrophils # Lymphocytes # (Manual) PT INR D-Dimer ABG pH POC ABG pCO2 POC ABG pO2 ABG pO2 70.8 L ABG HCO3 28.9 H ABG O2 Saturation 94.5 L ABG Base Excess 3.3 H ABG Hemoglobin 11.6 L ABG Sodium ABG Glucose Oxyhemoglobin 92.7 L Potassium 3.5 L Chloride 110.4 H Carbon Dioxide BUN 19 H Creatinine 0.4 L Glucose 101 H POC Glucose < 40 L Calcium 7.2 L Lactate Dehydrogenase Troponin T C-Reactive Protein NT-Pro-B Natriuret Pep Total Protein 4.4 L Albumin 2.2 L LDL Cholesterol Direct TSH Arterial Blood Glucose Arterial Blood Ionized Calcium Salicylates Acetaminophen 07/07/20 07/07/20 07/08/20 05:15 05:15 03:20 Hct MCV 98 H RDW 19.9 H Plt Count Lymph % (Auto) [place] % (Auto) Lymph # (Auto) [place] # (Auto) Seg Neutrophils % Seg Neuts % (Manual) 76.0 H Lymphocytes % (Manual) Nucleated RBC % 1.0 H Seg Neutrophils # Lymphocytes # (Manual) PT INR D-Dimer ABG pH POC ABG pCO2 POC ABG pO2 ABG pO2 ABG HCO3 29.1 H ABG O2 Saturation ABG Base Excess 3.8 H ABG Hemoglobin ABG Sodium ABG Glucose Oxyhemoglobin Potassium Chloride Carbon Dioxide BUN Creatinine 0.5 L Glucose POC Glucose Calcium 7.6 L Lactate Dehydrogenase Troponin T C-Reactive Protein NT-Pro-B Natriuret Pep Total Protein Albumin LDL Cholesterol Direct TSH Arterial Blood Glucose Arterial Blood Ionized Calcium Salicylates Acetaminophen 07/08/20 07/09/20 07/09/20 07:31 00:02 04:05 Hct MCV RDW Plt Count Lymph % (Auto) [place] % (Auto) Lymph # (Auto) [place] # (Auto) Seg Neutrophils % Seg Neuts % (Manual) Lymphocytes % (Manual) Nucleated RBC % Seg Neutrophils # Lymphocytes # (Manual) PT INR D-Dimer ABG pH POC ABG pCO2 POC ABG pO2 63.4 L ABG pO2 ABG HCO3 ABG O2 Saturation ABG Base Excess ABG Hemoglobin 11.8 L ABG Sodium 134.1 L ABG Glucose 137 H Oxyhemoglobin Potassium Chloride 108.6 H Carbon Dioxide BUN Creatinine 0.3 L Glucose 177 H POC Glucose 118 H Calcium 7.7 L Lactate Dehydrogenase Troponin T C-Reactive Protein NT-Pro-B Natriuret Pep Total Protein Albumin LDL Cholesterol Direct TSH Arterial Blood Glucose 137 H Arterial Blood Ionized Calcium Salicylates Acetaminophen 07/09/20 07/09/20 07/09/20 05:10 12:38 17:31 Hct MCV RDW Plt Count Lymph % (Auto) [place] % (Auto) Lymph # (Auto) [place] # (Auto) Seg Neutrophils % Seg Neuts % (Manual) Lymphocytes % (Manual) Nucleated RBC % Seg Neutrophils # Lymphocytes # (Manual) PT INR D-Dimer ABG pH POC ABG pCO2 POC ABG pO2 ABG pO2 ABG HCO3 ABG O2 Saturation ABG Base Excess ABG Hemoglobin ABG Sodium ABG Glucose Oxyhemoglobin Potassium Chloride Carbon Dioxide BUN Creatinine Glucose POC Glucose 132 H 106 H 120 H Calcium Lactate Dehydrogenase Troponin T C-Reactive Protein NT-Pro-B Natriuret Pep Total Protein Albumin LDL Cholesterol Direct TSH Arterial Blood Glucose Arterial Blood Ionized Calcium Salicylates Acetaminophen 07/10/20 07/10/20 07/10/20 00:27 04:15 05:25 Hct MCV RDW Plt Count Lymph % (Auto) [place] % (Auto) Lymph # (Auto) [place] # (Auto) Seg Neutrophils % Seg Neuts % (Manual) Lymphocytes % (Manual) Nucleated RBC % Seg Neutrophils # Lymphocytes # (Manual) PT INR D-Dimer ABG pH POC ABG pCO2 POC ABG pO2 60.7 L ABG pO2 ABG HCO3 ABG O2 Saturation ABG Base Excess ABG Hemoglobin ABG Sodium ABG Glucose 149 H Oxyhemoglobin Potassium Chloride Carbon Dioxide BUN Creatinine Glucose POC Glucose 129 H 127 H Calcium Lactate Dehydrogenase Troponin T C-Reactive Protein NT-Pro-B Natriuret Pep Total Protein Albumin LDL Cholesterol Direct TSH Arterial Blood Glucose 149 H Arterial Blood Ionized Calcium Salicylates Acetaminophen 07/10/20 07/10/20 07/11/20 12:08 16:57 00:04 Hct MCV RDW Plt Count Lymph % (Auto) [place] % (Auto) Lymph # (Auto) [place] # (Auto) Seg Neutrophils % Seg Neuts % (Manual) Lymphocytes % (Manual) Nucleated RBC % Seg Neutrophils # Lymphocytes # (Manual) PT INR D-Dimer ABG pH POC ABG pCO2 POC ABG pO2 ABG pO2 ABG HCO3 ABG O2 Saturation ABG Base Excess ABG Hemoglobin ABG Sodium ABG Glucose Oxyhemoglobin Potassium Chloride Carbon Dioxide BUN Creatinine Glucose POC Glucose 129 H 152 H 127 H Calcium Lactate Dehydrogenase Troponin T C-Reactive Protein NT-Pro-B Natriuret Pep Total Protein Albumin LDL Cholesterol Direct TSH Arterial Blood Glucose Arterial Blood Ionized Calcium Salicylates Acetaminophen 07/11/20 07/11/20 07/11/20 04:56 05:29 11:47 Hct MCV RDW Plt Count Lymph % (Auto) [place] % (Auto) Lymph # (Auto) [place] # (Auto) Seg Neutrophils % Seg Neuts % (Manual) Lymphocytes % (Manual) Nucleated RBC % Seg Neutrophils # Lymphocytes # (Manual) PT INR D-Dimer ABG pH POC ABG pCO2 48.8 H POC ABG pO2 ABG pO2 ABG HCO3 ABG O2 Saturation ABG Base Excess ABG Hemoglobin ABG Sodium ABG Glucose 153 H Oxyhemoglobin Potassium Chloride Carbon Dioxide BUN Creatinine Glucose POC Glucose 127 H 155 H Calcium Lactate Dehydrogenase Troponin T C-Reactive Protein NT-Pro-B Natriuret Pep Total Protein Albumin LDL Cholesterol Direct TSH Arterial Blood Glucose 153 H Arterial Blood Ionized Calcium Salicylates Acetaminophen 07/11/20 07/12/20 07/12/20 17:12 03:18 17:42 Hct MCV RDW Plt Count Lymph % (Auto) [place] % (Auto) Lymph # (Auto) [place] # (Auto) Seg Neutrophils % Seg Neuts % (Manual) Lymphocytes % (Manual) Nucleated RBC % Seg Neutrophils # Lymphocytes # (Manual) PT INR D-Dimer ABG pH POC ABG pCO2 POC ABG pO2 71.4 L ABG pO2 ABG HCO3 ABG O2 Saturation ABG Base Excess ABG Hemoglobin ABG Sodium ABG Glucose 99 H Oxyhemoglobin Potassium Chloride Carbon Dioxide BUN Creatinine Glucose POC Glucose 118 H 112 H Calcium Lactate Dehydrogenase Troponin T C-Reactive Protein NT-Pro-B Natriuret Pep Total Protein Albumin LDL Cholesterol Direct TSH Arterial Blood Glucose 99 H Arterial Blood Ionized Calcium Salicylates Acetaminophen 07/13/20 07/13/20 07/13/20 03:33 09:50 09:50 Hct MCV RDW 17.7 H Plt Count 135 L Lymph % (Auto) [place] % (Auto) Lymph # (Auto) [place] # (Auto) Seg Neutrophils % Seg Neuts % (Manual) 96.0 H Lymphocytes % (Manual) 3.0 L Nucleated RBC % Seg Neutrophils # Lymphocytes # (Manual) 0.2 L PT INR D-Dimer ABG pH 7.462 H POC ABG pCO2 POC ABG pO2 69.1 L ABG pO2 ABG HCO3 ABG O2 Saturation ABG Base Excess ABG Hemoglobin ABG Sodium ABG Glucose 125 H Oxyhemoglobin Potassium Chloride Carbon Dioxide 33 H BUN 18 H Creatinine 0.3 L Glucose 157 H POC Glucose Calcium Lactate Dehydrogenase Troponin T C-Reactive Protein NT-Pro-B Natriuret Pep Total Protein Albumin LDL Cholesterol Direct TSH Arterial Blood Glucose 125 H Arterial Blood Ionized Calcium Salicylates Acetaminophen 07/13/20 07/13/20 07/13/20 11:52 17:32 22:00 Hct MCV RDW Plt Count Lymph % (Auto) [place] % (Auto) Lymph # (Auto) [place] # (Auto) Seg Neutrophils % Seg Neuts % (Manual) Lymphocytes % (Manual) Nucleated RBC % Seg Neutrophils # Lymphocytes # (Manual) PT INR D-Dimer ABG pH POC ABG pCO2 50.3 H POC ABG pO2 ABG pO2 ABG HCO3 ABG O2 Saturation ABG Base Excess ABG Hemoglobin 11.4 L ABG Sodium ABG Glucose 128 H Oxyhemoglobin Potassium Chloride Carbon Dioxide BUN Creatinine Glucose POC Glucose 139 H 119 H Calcium Lactate Dehydrogenase Troponin T C-Reactive Protein NT-Pro-B Natriuret Pep Total Protein Albumin LDL Cholesterol Direct TSH Arterial Blood Glucose 128 H Arterial Blood Ionized Calcium Salicylates Acetaminophen 07/14/20 07/14/20 07/14/20 04:05 11:48 23:22 Hct MCV RDW Plt Count Lymph % (Auto) [place] % (Auto) Lymph # (Auto) [place] # (Auto) Seg Neutrophils % Seg Neuts % (Manual) Lymphocytes % (Manual) Nucleated RBC % Seg Neutrophils # Lymphocytes # (Manual) PT INR D-Dimer ABG pH POC ABG pCO2 POC ABG pO2 ABG pO2 69.1 L ABG HCO3 31.8 H ABG O2 Saturation 94.8 L ABG Base Excess 6.6 H ABG Hemoglobin 11.7 L ABG Sodium ABG Glucose Oxyhemoglobin 93.0 L Potassium Chloride Carbon Dioxide BUN Creatinine Glucose POC Glucose 174 H 117 H Calcium Lactate Dehydrogenase Troponin T C-Reactive Protein NT-Pro-B Natriuret Pep Total Protein Albumin LDL Cholesterol Direct TSH Arterial Blood Glucose Arterial Blood Ionized Calcium Salicylates Acetaminophen 07/15/20 07/15/20 07/15/20 04:57 12:12 17:19 Hct MCV RDW Plt Count Lymph % (Auto) [place] % (Auto) Lymph # (Auto) [place] # (Auto) Seg Neutrophils % Seg Neuts % (Manual) Lymphocytes % (Manual) Nucleated RBC % Seg Neutrophils # Lymphocytes # (Manual) PT INR D-Dimer ABG pH POC ABG pCO2 POC ABG pO2 ABG pO2 ABG HCO3 ABG O2 Saturation ABG Base Excess ABG Hemoglobin ABG Sodium ABG Glucose Oxyhemoglobin Potassium Chloride Carbon Dioxide BUN Creatinine Glucose POC Glucose 159 H 170 H 149 H Calcium Lactate Dehydrogenase Troponin T C-Reactive Protein NT-Pro-B Natriuret Pep Total Protein Albumin LDL Cholesterol Direct TSH Arterial Blood Glucose Arterial Blood Ionized Calcium Salicylates Acetaminophen 07/15/20 07/16/20 07/16/20 23:48 05:38 07:25 Hct MCV RDW 16.6 H Plt Count 96 L Lymph % (Auto) [place] % (Auto) Lymph # (Auto) [place] # (Auto) Seg Neutrophils % Seg Neuts % (Manual) Lymphocytes % (Manual) Nucleated RBC % Seg Neutrophils # Lymphocytes # (Manual) PT INR D-Dimer ABG pH POC ABG pCO2 POC ABG pO2 ABG pO2 ABG HCO3 ABG O2 Saturation ABG Base Excess ABG Hemoglobin ABG Sodium ABG Glucose Oxyhemoglobin Potassium Chloride Carbon Dioxide BUN Creatinine Glucose POC Glucose 159 H 156 H Calcium Lactate Dehydrogenase Troponin T C-Reactive Protein NT-Pro-B Natriuret Pep Total Protein Albumin LDL Cholesterol Direct TSH Arterial Blood Glucose Arterial Blood Ionized Calcium Salicylates Acetaminophen 07/16/20 07/16/20 07/16/20 07:25 11:31 17:21 Hct MCV RDW Plt Count Lymph % (Auto) [place] % (Auto) Lymph # (Auto) [place] # (Auto) Seg Neutrophils % Seg Neuts % (Manual) Lymphocytes % (Manual) Nucleated RBC % Seg Neutrophils # Lymphocytes # (Manual) PT INR D-Dimer ABG pH POC ABG pCO2 POC ABG pO2 ABG pO2 ABG HCO3 ABG O2 Saturation ABG Base Excess ABG Hemoglobin ABG Sodium ABG Glucose Oxyhemoglobin Potassium Chloride Carbon Dioxide 35 H BUN 19 H Creatinine 0.3 L Glucose 170 H POC Glucose 150 H 130 H Calcium Lactate Dehydrogenase Troponin T C-Reactive Protein NT-Pro-B Natriuret Pep Total Protein Albumin LDL Cholesterol Direct TSH Arterial Blood Glucose Arterial Blood Ionized Calcium Salicylates Acetaminophen 07/16/20 07/17/20 07/17/20 23:35 05:58 11:53 Hct MCV RDW Plt Count Lymph % (Auto) [place] % (Auto) Lymph # (Auto) [place] # (Auto) Seg Neutrophils % Seg Neuts % (Manual) Lymphocytes % (Manual) Nucleated RBC % Seg Neutrophils # Lymphocytes # (Manual) PT INR D-Dimer ABG pH POC ABG pCO2 POC ABG pO2 ABG pO2 ABG HCO3 ABG O2 Saturation ABG Base Excess ABG Hemoglobin ABG Sodium ABG Glucose Oxyhemoglobin Potassium Chloride Carbon Dioxide BUN Creatinine Glucose POC Glucose 128 H 132 H 126 H Calcium Lactate Dehydrogenase Troponin T C-Reactive Protein NT-Pro-B Natriuret Pep Total Protein Albumin LDL Cholesterol Direct TSH Arterial Blood Glucose Arterial Blood Ionized Calcium Salicylates Acetaminophen 07/17/20 07/17/20 07/17/20 15:40 17:14 23:10 Hct MCV RDW Plt Count Lymph % (Auto) [place] % (Auto) Lymph # (Auto) [place] # (Auto) Seg Neutrophils % Seg Neuts % (Manual) Lymphocytes % (Manual) Nucleated RBC % Seg Neutrophils # Lymphocytes # (Manual) PT INR D-Dimer ABG pH POC ABG pCO2 POC ABG pO2 ABG pO2 ABG HCO3 ABG O2 Saturation ABG Base Excess ABG Hemoglobin ABG Sodium ABG Glucose Oxyhemoglobin Potassium Chloride Carbon Dioxide 34 H BUN 19 H Creatinine 0.3 L Glucose 150 H POC Glucose 126 H 120 H Calcium Lactate Dehydrogenase Troponin T C-Reactive Protein NT-Pro-B Natriuret Pep Total Protein Albumin LDL Cholesterol Direct TSH Arterial Blood Glucose Arterial Blood Ionized Calcium Salicylates Acetaminophen 07/18/20 07/18/20 07/18/20 05:31 11:56 18:11 Hct MCV RDW Plt Count Lymph % (Auto) [place] % (Auto) Lymph # (Auto) [place] # (Auto) Seg Neutrophils % Seg Neuts % (Manual) Lymphocytes % (Manual) Nucleated RBC % Seg Neutrophils # Lymphocytes # (Manual) PT INR D-Dimer ABG pH POC ABG pCO2 POC ABG pO2 ABG pO2 ABG HCO3 ABG O2 Saturation ABG Base Excess ABG Hemoglobin ABG Sodium ABG Glucose Oxyhemoglobin Potassium Chloride Carbon Dioxide BUN Creatinine Glucose POC Glucose 122 H 114 H 140 H Calcium Lactate Dehydrogenase Troponin T C-Reactive Protein NT-Pro-B Natriuret Pep Total Protein Albumin LDL Cholesterol Direct TSH Arterial Blood Glucose Arterial Blood Ionized Calcium Salicylates Acetaminophen 07/19/20 07/19/20 07/19/20 00:10 08:13 11:43 Hct MCV RDW Plt Count Lymph % (Auto) [place] % (Auto) Lymph # (Auto) [place] # (Auto) Seg Neutrophils % Seg Neuts % (Manual) Lymphocytes % (Manual) Nucleated RBC % Seg Neutrophils # Lymphocytes # (Manual) PT INR D-Dimer ABG pH POC ABG pCO2 POC ABG pO2 ABG pO2 ABG HCO3 ABG O2 Saturation ABG Base Excess ABG Hemoglobin ABG Sodium ABG Glucose Oxyhemoglobin Potassium Chloride Carbon Dioxide 32 H BUN Creatinine 0.2 L Glucose 161 H POC Glucose 171 H 182 H Calcium 8.3 L Lactate Dehydrogenase Troponin T C-Reactive Protein NT-Pro-B Natriuret Pep Total Protein Albumin LDL Cholesterol Direct TSH Arterial Blood Glucose Arterial Blood Ionized Calcium Salicylates Acetaminophen Chest x-ray: report reviewed, image reviewed Additional Studies: CHEST 1 VIEW 07/17/20 INDICATION: respiratory failure. COMPARISON: 07/05/2020 FINDINGS: SUPPORT DEVICES: Left IJ CVL appears to have been removed. There is a new NG tube curled in the proximal to mid stomach. HEART: Within normal limits. LUNGS/PLEURA: Mild diffuse interstitial prominence with mild patchy bibasilar predominant airspace disease. ADDITIONAL FINDINGS: None. IMPRESSION: 1. Support devices and pulmonary findings as above. Allied health notes reviewed: RT
[2020-07-19] MEDS: QUEtiapine 200 MG TAB PO SCH ×2 (15:11→21:29)
[2020-07-19] MEDS: MELATONIN 5 MG TAB PO SCH (21:28)
[2020-07-20] MEDS: LACTULOSE 20 GM/30 ML ORAL LIQD PO SCH ×4 (00:35→17:38)
[2020-07-20] MEDS: dilTIAZem 60 MG TAB PO SCH ×4 (00:35→17:38)
[2020-07-20] MEDS: IPRATROPIUM/ALBUTEROL SULFATE 3 ML AMPUL.NEB IH SCH ×4 (02:48→16:01)
[2020-07-20] MEDS: methylPREDNISolone Sod Succinate 125 MG/2 ML INJ IV SCH ×3 (06:11→21:18)
[2020-07-20] MEDS: FAMOTIDINE 20 MG TAB PO SCH ×2 (09:09→21:18)
[2020-07-20] MEDS: QUEtiapine 200 MG TAB PO SCH ×2 (09:09→21:18)
--- NOTE | 2020-07-20 09:47 | Progress Note ---
Assessment and Plan Patient awake. Patient presently resting on 2 litres O2. O2 saturation 98%. Denies shortness of breath, cough or chest pain at this time. BIPAP standby in the room. Patient afebrile, No leukocytosis. Chest xray done 07/15/20 reported mild diffuse interstitial prominence with mild patchy bibasilar predominant airspace disease. ABGs done on 40% FIO2. ABG pH 7.434 pH Units (7.350-7.450) 07/14/20 04:05 POC ABG pCO2 50.3 mmHg (32.0-48.0) H 07/13/20 22:00 ABG pCO2 48.5 mm Hg 07/14/20 04:05 POC ABG pO2 69.1 mmHg (83-108) L 07/13/20 03:33 ABG pO2 69.1 mm Hg (80.0-90.0) L 07/14/20 04:05 POC ABG HCO3 29.0 07/13/20 22:00 ABG O2 Saturation 94.8 % (95.0-99.0) L 07/14/20 04:05 Patient presently on albuterol/atrovent aerosol treatments q 8 hous, Methyl prednisone and Famotidine. - Patient Problems (1) Acute respiratory failure Current Visit: Yes Status: Acute Qualifiers: Respiratory failure complication: hypoxia Qualified Code(s): J96.01 - Acute respiratory failure with hypoxia Plan to address problem: O2 2 litres via nasal canula. Albuterol/atrovent aerosol treatments q 6 hours. BIPAP stand by in the room. Continue methyl prednisone. SCDs Continue famotidine. Antibiotics as per ID. (2) Suspected 2019 novel coronavirus infection Current Visit: Yes Status: Acute Plan to address problem: Vyas virus test reported negative. (3) Acute encephalopathy Current Visit: Yes Status: Acute Plan to address problem: Management as per primary care . (4) Intracranial hemorrhage Current Visit: Yes Status: Acute Plan to address problem: Management as per primary care and neurology. (5) Paroxysmal atrial fibrillation Current Visit: Yes Status: Acute Plan to address problem: Mangement as per primary care and cardiology. Subjective Date of service: 07/20/20 Principal diagnosis: Ac and ch hypoxic & hypercapnic resp failure; AE-COPD; Tobacco use disorder Interval history: Patient awake. Patient presently resting on 2 litres O2. O2 saturation 98%. Denies shortness of breath, cough or chest pain at this time. BIPAP standby in the room. Patient afebrile, No leukocytosis. Chest xray done 07/15/20 reported mild diffuse interstitial prominence with mild patchy bibasilar predominant airspace disease. ABGs done on 40% FIO2. ABG pH 7.434 pH Units (7.350-7.450) 07/14/20 04:05 POC ABG pCO2 50.3 mmHg (32.0-48.0) H 07/13/20 22:00 ABG pCO2 48.5 mm Hg 07/14/20 04:05 POC ABG pO2 69.1 mmHg (83-108) L 07/13/20 03:33 ABG pO2 69.1 mm Hg (80.0-90.0) L 07/14/20 04:05 POC ABG HCO3 29.0 07/13/20 22:00 ABG O2 Saturation 94.8 % (95.0-99.0) L 07/14/20 04:05 Patient presently on albuterol/atrovent aerosol treatments q 8 hous, Methyl prednisone and Famotidine. Objective Vital Signs - 12hr 07/19/20 07/19/20 07/20/20 22:19 23:26 01:00 Temperature 99.0 F Pulse Rate 87 98 H Pulse Rate [ 89 From Monitor] Respiratory 22 17 16 Rate Blood Pressure 112/55 O2 Sat by Pulse 93 93 95 Oximetry 07/20/20 07/20/20 07/20/20 03:39 06:01 06:11 Temperature 98.2 F Pulse Rate 99 H 85 85 Pulse Rate [ From Monitor] Respiratory 16 Rate Blood Pressure 128/72 128/72 O2 Sat by Pulse 91 Oximetry 07/20/20 07:25 Temperature 98.4 F Pulse Rate 93 H Pulse Rate [ From Monitor] Respiratory 18 Rate Blood Pressure 163/82 O2 Sat by Pulse 87 Oximetry Constitutional: no acute distress, alert Eyes: non-icteric ENT: oropharynx moist Neck: supple Effort: mildly labored Ascultation: Bilateral: diminished breath sounds, rhonchi (scant) Percussion: Bilateral: not dull Cardiovascular: regular rate and rhythm, other (sinus tach) Gastrointestinal: normoactive bowel sounds, soft, non-tender, non-distended (protuberant) Integumentary: rash Extremities: no cyanosis, pink and warm, no ischemia or petechiae, edema (bilateral upper extremity) Neurologic: non-focal exam (grossly), pupils equal and round Psychiatric: depressed CBC and BMP: 07/16/20 07:25 07/19/20 00:10 ABG, PT/INR, D-dimer: ABG ABG pH 7.434 pH Units (7.350-7.450) 07/14/20 04:05 POC ABG pCO2 50.3 mmHg (32.0-48.0) H 07/13/20 22:00 ABG pCO2 48.5 mm Hg 07/14/20 04:05 POC ABG pO2 69.1 mmHg (83-108) L 07/13/20 03:33 ABG pO2 69.1 mm Hg (80.0-90.0) L 07/14/20 04:05 POC ABG HCO3 29.0 07/13/20 22:00 ABG O2 Saturation 94.8 % (95.0-99.0) L 07/14/20 04:05 PT/INR, D-dimer PT 14.5 Sec. (12.2-14.9) 07/07/20 05:15 INR 1.12 (0.87-1.13) 07/07/20 05:15 D-Dimer 1298.20 ng/mlDDU (0-234) H 07/05/20 23:06 Abnormal lab findings: Abnormal Labs 07/05/20 07/05/20 07/05/20 22:55 23:06 23:06 Hct MCV RDW Plt Count Lymph % (Auto) [place] % (Auto) Lymph # (Auto) [place] # (Auto) Seg Neutrophils % Seg Neuts % (Manual) Lymphocytes % (Manual) Nucleated RBC % Seg Neutrophils # Lymphocytes # (Manual) PT 15.2 H INR 1.18 H D-Dimer 1298.20 H ABG pH POC ABG pCO2 POC ABG pO2 ABG pO2 227.3 H ABG HCO3 31.3 H ABG O2 Saturation 99.3 H ABG Base Excess 5.8 H ABG Hemoglobin ABG Sodium ABG Glucose Oxyhemoglobin Potassium Chloride Carbon Dioxide BUN 31 H Creatinine Glucose POC Glucose Calcium 7.7 L Lactate Dehydrogenase 217 H Troponin T 0.032 H C-Reactive Protein 1.60 H NT-Pro-B Natriuret Pep Total Protein 5.2 L Albumin 2.6 L LDL Cholesterol Direct 43 L TSH Arterial Blood Glucose Arterial Blood Ionized Calcium Salicylates Acetaminophen 07/05/20 07/05/20 07/05/20 23:06 23:06 23:06 Hct MCV RDW Plt Count Lymph % (Auto) [place] % (Auto) Lymph # (Auto) [place] # (Auto) Seg Neutrophils % Seg Neuts % (Manual) Lymphocytes % (Manual) Nucleated RBC % Seg Neutrophils # Lymphocytes # (Manual) PT INR D-Dimer ABG pH POC ABG pCO2 POC ABG pO2 ABG pO2 ABG HCO3 ABG O2 Saturation ABG Base Excess ABG Hemoglobin ABG Sodium ABG Glucose Oxyhemoglobin Potassium Chloride Carbon Dioxide BUN Creatinine Glucose POC Glucose Calcium Lactate Dehydrogenase Troponin T C-Reactive Protein NT-Pro-B Natriuret Pep Total Protein Albumin LDL Cholesterol Direct TSH 15.130 H Arterial Blood Glucose Arterial Blood Ionized Calcium Salicylates < 0.3 L Acetaminophen < 5.0 L 07/05/20 07/05/20 07/06/20 23:06 23:42 06:58 Hct MCV 98 H RDW 19.8 H Plt Count Lymph % (Auto) [place] % (Auto) 15.9 H Lymph # (Auto) 0.9 L [place] # (Auto) 1.0 H Seg Neutrophils % Seg Neuts % (Manual) Lymphocytes % (Manual) Nucleated RBC % Seg Neutrophils # Lymphocytes # (Manual) PT INR D-Dimer ABG pH 7.533 H POC ABG pCO2 20.7 L POC ABG pO2 ABG pO2 ABG HCO3 ABG O2 Saturation ABG Base Excess ABG Hemoglobin 7.6 L ABG Sodium 132.3 L ABG Glucose 55 L Oxyhemoglobin Potassium Chloride Carbon Dioxide BUN Creatinine Glucose POC Glucose Calcium Lactate Dehydrogenase 217 H Troponin T C-Reactive Protein 1.60 H NT-Pro-B Natriuret Pep Total Protein Albumin LDL Cholesterol Direct TSH Arterial Blood Glucose 55 L Arterial Blood Ionized Calcium 4.3 L Salicylates Acetaminophen 07/06/20 07/06/20 07/06/20 11:09 11:09 17:46 Hct 43.0 H MCV 100 H RDW 20.8 H Plt Count Lymph % (Auto) 7.2 L [place] % (Auto) 11.4 H Lymph # (Auto) 0.7 L [place] # (Auto) 1.1 H Seg Neutrophils % 81.3 H Seg Neuts % (Manual) Lymphocytes % (Manual) Nucleated RBC % Seg Neutrophils # 7.9 H Lymphocytes # (Manual) PT INR D-Dimer ABG pH POC ABG pCO2 POC ABG pO2 ABG pO2 ABG HCO3 ABG O2 Saturation ABG Base Excess ABG Hemoglobin ABG Sodium ABG Glucose Oxyhemoglobin Potassium Chloride Carbon Dioxide BUN Creatinine Glucose POC Glucose 43 L Calcium Lactate Dehydrogenase Troponin T C-Reactive Protein NT-Pro-B Natriuret Pep 96769 H Total Protein Albumin LDL Cholesterol Direct TSH Arterial Blood Glucose Arterial Blood Ionized Calcium Salicylates Acetaminophen 07/06/20 07/06/20 07/07/20 19:31 Unknown 04:55 Hct MCV RDW Plt Count Lymph % (Auto) [place] % (Auto) Lymph # (Auto) [place] # (Auto) Seg Neutrophils % Seg Neuts % (Manual) Lymphocytes % (Manual) Nucleated RBC % Seg Neutrophils # Lymphocytes # (Manual) PT INR D-Dimer ABG pH POC ABG pCO2 POC ABG pO2 ABG pO2 70.8 L ABG HCO3 28.9 H ABG O2 Saturation 94.5 L ABG Base Excess 3.3 H ABG Hemoglobin 11.6 L ABG Sodium ABG Glucose Oxyhemoglobin 92.7 L Potassium 3.5 L Chloride 110.4 H Carbon Dioxide BUN 19 H Creatinine 0.4 L Glucose 101 H POC Glucose < 40 L Calcium 7.2 L Lactate Dehydrogenase Troponin T C-Reactive Protein NT-Pro-B Natriuret Pep Total Protein 4.4 L Albumin 2.2 L LDL Cholesterol Direct TSH Arterial Blood Glucose Arterial Blood Ionized Calcium Salicylates Acetaminophen 07/07/20 07/07/20 07/08/20 05:15 05:15 03:20 Hct MCV 98 H RDW 19.9 H Plt Count Lymph % (Auto) [place] % (Auto) Lymph # (Auto) [place] # (Auto) Seg Neutrophils % Seg Neuts % (Manual) 76.0 H Lymphocytes % (Manual) Nucleated RBC % 1.0 H Seg Neutrophils # Lymphocytes # (Manual) PT INR D-Dimer ABG pH POC ABG pCO2 POC ABG pO2 ABG pO2 ABG HCO3 29.1 H ABG O2 Saturation ABG Base Excess 3.8 H ABG Hemoglobin ABG Sodium ABG Glucose Oxyhemoglobin Potassium Chloride Carbon Dioxide BUN Creatinine 0.5 L Glucose POC Glucose Calcium 7.6 L Lactate Dehydrogenase Troponin T C-Reactive Protein NT-Pro-B Natriuret Pep Total Protein Albumin LDL Cholesterol Direct TSH Arterial Blood Glucose Arterial Blood Ionized Calcium Salicylates Acetaminophen 07/08/20 07/09/20 07/09/20 07:31 00:02 04:05 Hct MCV RDW Plt Count Lymph % (Auto) [place] % (Auto) Lymph # (Auto) [place] # (Auto) Seg Neutrophils % Seg Neuts % (Manual) Lymphocytes % (Manual) Nucleated RBC % Seg Neutrophils # Lymphocytes # (Manual) PT INR D-Dimer ABG pH POC ABG pCO2 POC ABG pO2 63.4 L ABG pO2 ABG HCO3 ABG O2 Saturation ABG Base Excess ABG Hemoglobin 11.8 L ABG Sodium 134.1 L ABG Glucose 137 H Oxyhemoglobin Potassium Chloride 108.6 H Carbon Dioxide BUN Creatinine 0.3 L Glucose 177 H POC Glucose 118 H Calcium 7.7 L Lactate Dehydrogenase Troponin T C-Reactive Protein NT-Pro-B Natriuret Pep Total Protein Albumin LDL Cholesterol Direct TSH Arterial Blood Glucose 137 H Arterial Blood Ionized Calcium Salicylates Acetaminophen 07/09/20 07/09/20 07/09/20 05:10 12:38 17:31 Hct MCV RDW Plt Count Lymph % (Auto) [place] % (Auto) Lymph # (Auto) [place] # (Auto) Seg Neutrophils % Seg Neuts % (Manual) Lymphocytes % (Manual) Nucleated RBC % Seg Neutrophils # Lymphocytes # (Manual) PT INR D-Dimer ABG pH POC ABG pCO2 POC ABG pO2 ABG pO2 ABG HCO3 ABG O2 Saturation ABG Base Excess ABG Hemoglobin ABG Sodium ABG Glucose Oxyhemoglobin Potassium Chloride Carbon Dioxide BUN Creatinine Glucose POC Glucose 132 H 106 H 120 H Calcium Lactate Dehydrogenase Troponin T C-Reactive Protein NT-Pro-B Natriuret Pep Total Protein Albumin LDL Cholesterol Direct TSH Arterial Blood Glucose Arterial Blood Ionized Calcium Salicylates Acetaminophen 07/10/20 07/10/20 07/10/20 00:27 04:15 05:25 Hct MCV RDW Plt Count Lymph % (Auto) [place] % (Auto) Lymph # (Auto) [place] # (Auto) Seg Neutrophils % Seg Neuts % (Manual) Lymphocytes % (Manual) Nucleated RBC % Seg Neutrophils # Lymphocytes # (Manual) PT INR D-Dimer ABG pH POC ABG pCO2 POC ABG pO2 60.7 L ABG pO2 ABG HCO3 ABG O2 Saturation ABG Base Excess ABG Hemoglobin ABG Sodium ABG Glucose 149 H Oxyhemoglobin Potassium Chloride Carbon Dioxide BUN Creatinine Glucose POC Glucose 129 H 127 H Calcium Lactate Dehydrogenase Troponin T C-Reactive Protein NT-Pro-B Natriuret Pep Total Protein Albumin LDL Cholesterol Direct TSH Arterial Blood Glucose 149 H Arterial Blood Ionized Calcium Salicylates Acetaminophen 07/10/20 07/10/20 07/11/20 12:08 16:57 00:04 Hct MCV RDW Plt Count Lymph % (Auto) [place] % (Auto) Lymph # (Auto) [place] # (Auto) Seg Neutrophils % Seg Neuts % (Manual) Lymphocytes % (Manual) Nucleated RBC % Seg Neutrophils # Lymphocytes # (Manual) PT INR D-Dimer ABG pH POC ABG pCO2 POC ABG pO2 ABG pO2 ABG HCO3 ABG O2 Saturation ABG Base Excess ABG Hemoglobin ABG Sodium ABG Glucose Oxyhemoglobin Potassium Chloride Carbon Dioxide BUN Creatinine Glucose POC Glucose 129 H 152 H 127 H Calcium Lactate Dehydrogenase Troponin T C-Reactive Protein NT-Pro-B Natriuret Pep Total Protein Albumin LDL Cholesterol Direct TSH Arterial Blood Glucose Arterial Blood Ionized Calcium Salicylates Acetaminophen 07/11/20 07/11/20 07/11/20 04:56 05:29 11:47 Hct MCV RDW Plt Count Lymph % (Auto) [place] % (Auto) Lymph # (Auto) [place] # (Auto) Seg Neutrophils % Seg Neuts % (Manual) Lymphocytes % (Manual) Nucleated RBC % Seg Neutrophils # Lymphocytes # (Manual) PT INR D-Dimer ABG pH POC ABG pCO2 48.8 H POC ABG pO2 ABG pO2 ABG HCO3 ABG O2 Saturation ABG Base Excess ABG Hemoglobin ABG Sodium ABG Glucose 153 H Oxyhemoglobin Potassium Chloride Carbon Dioxide BUN Creatinine Glucose POC Glucose 127 H 155 H Calcium Lactate Dehydrogenase Troponin T C-Reactive Protein NT-Pro-B Natriuret Pep Total Protein Albumin LDL Cholesterol Direct TSH Arterial Blood Glucose 153 H Arterial Blood Ionized Calcium Salicylates Acetaminophen 07/11/20 07/12/20 07/12/20 17:12 03:18 17:42 Hct MCV RDW Plt Count Lymph % (Auto) [place] % (Auto) Lymph # (Auto) [place] # (Auto) Seg Neutrophils % Seg Neuts % (Manual) Lymphocytes % (Manual) Nucleated RBC % Seg Neutrophils # Lymphocytes # (Manual) PT INR D-Dimer ABG pH POC ABG pCO2 POC ABG pO2 71.4 L ABG pO2 ABG HCO3 ABG O2 Saturation ABG Base Excess ABG Hemoglobin ABG Sodium ABG Glucose 99 H Oxyhemoglobin Potassium Chloride Carbon Dioxide BUN Creatinine Glucose POC Glucose 118 H 112 H Calcium Lactate Dehydrogenase Troponin T C-Reactive Protein NT-Pro-B Natriuret Pep Total Protein Albumin LDL Cholesterol Direct TSH Arterial Blood Glucose 99 H Arterial Blood Ionized Calcium Salicylates Acetaminophen 07/13/20 07/13/20 07/13/20 03:33 09:50 09:50 Hct MCV RDW 17.7 H Plt Count 135 L Lymph % (Auto) [place] % (Auto) Lymph # (Auto) [place] # (Auto) Seg Neutrophils % Seg Neuts % (Manual) 96.0 H Lymphocytes % (Manual) 3.0 L Nucleated RBC % Seg Neutrophils # Lymphocytes # (Manual) 0.2 L PT INR D-Dimer ABG pH 7.462 H POC ABG pCO2 POC ABG pO2 69.1 L ABG pO2 ABG HCO3 ABG O2 Saturation ABG Base Excess ABG Hemoglobin ABG Sodium ABG Glucose 125 H Oxyhemoglobin Potassium Chloride Carbon Dioxide 33 H BUN 18 H Creatinine 0.3 L Glucose 157 H POC Glucose Calcium Lactate Dehydrogenase Troponin T C-Reactive Protein NT-Pro-B Natriuret Pep Total Protein Albumin LDL Cholesterol Direct TSH Arterial Blood Glucose 125 H Arterial Blood Ionized Calcium Salicylates Acetaminophen 07/13/20 07/13/20 07/13/20 11:52 17:32 22:00 Hct MCV RDW Plt Count Lymph % (Auto) [place] % (Auto) Lymph # (Auto) [place] # (Auto) Seg Neutrophils % Seg Neuts % (Manual) Lymphocytes % (Manual) Nucleated RBC % Seg Neutrophils # Lymphocytes # (Manual) PT INR D-Dimer ABG pH POC ABG pCO2 50.3 H POC ABG pO2 ABG pO2 ABG HCO3 ABG O2 Saturation ABG Base Excess ABG Hemoglobin 11.4 L ABG Sodium ABG Glucose 128 H Oxyhemoglobin Potassium Chloride Carbon Dioxide BUN Creatinine Glucose POC Glucose 139 H 119 H Calcium Lactate Dehydrogenase Troponin T C-Reactive Protein NT-Pro-B Natriuret Pep Total Protein Albumin LDL Cholesterol Direct TSH Arterial Blood Glucose 128 H Arterial Blood Ionized Calcium Salicylates Acetaminophen 07/14/20 07/14/20 07/14/20 04:05 11:48 23:22 Hct MCV RDW Plt Count Lymph % (Auto) [place] % (Auto) Lymph # (Auto) [place] # (Auto) Seg Neutrophils % Seg Neuts % (Manual) Lymphocytes % (Manual) Nucleated RBC % Seg Neutrophils # Lymphocytes # (Manual) PT INR D-Dimer ABG pH POC ABG pCO2 POC ABG pO2 ABG pO2 69.1 L ABG HCO3 31.8 H ABG O2 Saturation 94.8 L ABG Base Excess 6.6 H ABG Hemoglobin 11.7 L ABG Sodium ABG Glucose Oxyhemoglobin 93.0 L Potassium Chloride Carbon Dioxide BUN Creatinine Glucose POC Glucose 174 H 117 H Calcium Lactate Dehydrogenase Troponin T C-Reactive Protein NT-Pro-B Natriuret Pep Total Protein Albumin LDL Cholesterol Direct TSH Arterial Blood Glucose Arterial Blood Ionized Calcium Salicylates Acetaminophen 07/15/20 07/15/20 07/15/20 04:57 12:12 17:19 Hct MCV RDW Plt Count Lymph % (Auto) [place] % (Auto) Lymph # (Auto) [place] # (Auto) Seg Neutrophils % Seg Neuts % (Manual) Lymphocytes % (Manual) Nucleated RBC % Seg Neutrophils # Lymphocytes # (Manual) PT INR D-Dimer ABG pH POC ABG pCO2 POC ABG pO2 ABG pO2 ABG HCO3 ABG O2 Saturation ABG Base Excess ABG Hemoglobin ABG Sodium ABG Glucose Oxyhemoglobin Potassium Chloride Carbon Dioxide BUN Creatinine Glucose POC Glucose 159 H 170 H 149 H Calcium Lactate Dehydrogenase Troponin T C-Reactive Protein NT-Pro-B Natriuret Pep Total Protein Albumin LDL Cholesterol Direct TSH Arterial Blood Glucose Arterial Blood Ionized Calcium Salicylates Acetaminophen 07/15/20 07/16/20 07/16/20 23:48 05:38 07:25 Hct MCV RDW 16.6 H Plt Count 96 L Lymph % (Auto) [place] % (Auto) Lymph # (Auto) [place] # (Auto) Seg Neutrophils % Seg Neuts % (Manual) Lymphocytes % (Manual) Nucleated RBC % Seg Neutrophils # Lymphocytes # (Manual) PT INR D-Dimer ABG pH POC ABG pCO2 POC ABG pO2 ABG pO2 ABG HCO3 ABG O2 Saturation ABG Base Excess ABG Hemoglobin ABG Sodium ABG Glucose Oxyhemoglobin Potassium Chloride Carbon Dioxide BUN Creatinine Glucose POC Glucose 159 H 156 H Calcium Lactate Dehydrogenase Troponin T C-Reactive Protein NT-Pro-B Natriuret Pep Total Protein Albumin LDL Cholesterol Direct TSH Arterial Blood Glucose Arterial Blood Ionized Calcium Salicylates Acetaminophen 07/16/20 07/16/20 07/16/20 07:25 11:31 17:21 Hct MCV RDW Plt Count Lymph % (Auto) [place] % (Auto) Lymph # (Auto) [place] # (Auto) Seg Neutrophils % Seg Neuts % (Manual) Lymphocytes % (Manual) Nucleated RBC % Seg Neutrophils # Lymphocytes # (Manual) PT INR D-Dimer ABG pH POC ABG pCO2 POC ABG pO2 ABG pO2 ABG HCO3 ABG O2 Saturation ABG Base Excess ABG Hemoglobin ABG Sodium ABG Glucose Oxyhemoglobin Potassium Chloride Carbon Dioxide 35 H BUN 19 H Creatinine 0.3 L Glucose 170 H POC Glucose 150 H 130 H Calcium Lactate Dehydrogenase Troponin T C-Reactive Protein NT-Pro-B Natriuret Pep Total Protein Albumin LDL Cholesterol Direct TSH Arterial Blood Glucose Arterial Blood Ionized Calcium Salicylates Acetaminophen 07/16/20 07/17/20 07/17/20 23:35 05:58 11:53 Hct MCV RDW Plt Count Lymph % (Auto) [place] % (Auto) Lymph # (Auto) [place] # (Auto) Seg Neutrophils % Seg Neuts % (Manual) Lymphocytes % (Manual) Nucleated RBC % Seg Neutrophils # Lymphocytes # (Manual) PT INR D-Dimer ABG pH POC ABG pCO2 POC ABG pO2 ABG pO2 ABG HCO3 ABG O2 Saturation ABG Base Excess ABG Hemoglobin ABG Sodium ABG Glucose Oxyhemoglobin Potassium Chloride Carbon Dioxide BUN Creatinine Glucose POC Glucose 128 H 132 H 126 H Calcium Lactate Dehydrogenase Troponin T C-Reactive Protein NT-Pro-B Natriuret Pep Total Protein Albumin LDL Cholesterol Direct TSH Arterial Blood Glucose Arterial Blood Ionized Calcium Salicylates Acetaminophen 07/17/20 07/17/20 07/17/20 15:40 17:14 23:10 Hct MCV RDW Plt Count Lymph % (Auto) [place] % (Auto) Lymph # (Auto) [place] # (Auto) Seg Neutrophils % Seg Neuts % (Manual) Lymphocytes % (Manual) Nucleated RBC % Seg Neutrophils # Lymphocytes # (Manual) PT INR D-Dimer ABG pH POC ABG pCO2 POC ABG pO2 ABG pO2 ABG HCO3 ABG O2 Saturation ABG Base Excess ABG Hemoglobin ABG Sodium ABG Glucose Oxyhemoglobin Potassium Chloride Carbon Dioxide 34 H BUN 19 H Creatinine 0.3 L Glucose 150 H POC Glucose 126 H 120 H Calcium Lactate Dehydrogenase Troponin T C-Reactive Protein NT-Pro-B Natriuret Pep Total Protein Albumin LDL Cholesterol Direct TSH Arterial Blood Glucose Arterial Blood Ionized Calcium Salicylates Acetaminophen 07/18/20 07/18/20 07/18/20 05:31 11:56 18:11 Hct MCV RDW Plt Count Lymph % (Auto) [place] % (Auto) Lymph # (Auto) [place] # (Auto) Seg Neutrophils % Seg Neuts % (Manual) Lymphocytes % (Manual) Nucleated RBC % Seg Neutrophils # Lymphocytes # (Manual) PT INR D-Dimer ABG pH POC ABG pCO2 POC ABG pO2 ABG pO2 ABG HCO3 ABG O2 Saturation ABG Base Excess ABG Hemoglobin ABG Sodium ABG Glucose Oxyhemoglobin Potassium Chloride Carbon Dioxide BUN Creatinine Glucose POC Glucose 122 H 114 H 140 H Calcium Lactate Dehydrogenase Troponin T C-Reactive Protein NT-Pro-B Natriuret Pep Total Protein Albumin LDL Cholesterol Direct TSH Arterial Blood Glucose Arterial Blood Ionized Calcium Salicylates Acetaminophen 07/19/20 07/19/20 07/19/20 00:10 08:13 11:43 Hct MCV RDW Plt Count Lymph % (Auto) [place] % (Auto) Lymph # (Auto) [place] # (Auto) Seg Neutrophils % Seg Neuts % (Manual) Lymphocytes % (Manual) Nucleated RBC % Seg Neutrophils # Lymphocytes # (Manual) PT INR D-Dimer ABG pH POC ABG pCO2 POC ABG pO2 ABG pO2 ABG HCO3 ABG O2 Saturation ABG Base Excess ABG Hemoglobin ABG Sodium ABG Glucose Oxyhemoglobin Potassium Chloride Carbon Dioxide 32 H BUN Creatinine 0.2 L Glucose 161 H POC Glucose 171 H 182 H Calcium 8.3 L Lactate Dehydrogenase Troponin T C-Reactive Protein NT-Pro-B Natriuret Pep Total Protein Albumin LDL Cholesterol Direct TSH Arterial Blood Glucose Arterial Blood Ionized Calcium Salicylates Acetaminophen 07/19/20 07/19/20 07/20/20 16:44 23:24 05:21 Hct MCV RDW Plt Count Lymph % (Auto) [place] % (Auto) Lymph # (Auto) [place] # (Auto) Seg Neutrophils % Seg Neuts % (Manual) Lymphocytes % (Manual) Nucleated RBC % Seg Neutrophils # Lymphocytes # (Manual) PT INR D-Dimer ABG pH POC ABG pCO2 POC ABG pO2 ABG pO2 ABG HCO3 ABG O2 Saturation ABG Base Excess ABG Hemoglobin ABG Sodium ABG Glucose Oxyhemoglobin Potassium Chloride Carbon Dioxide BUN Creatinine Glucose POC Glucose 146 H 170 H 124 H Calcium Lactate Dehydrogenase Troponin T C-Reactive Protein NT-Pro-B Natriuret Pep Total Protein Albumin LDL Cholesterol Direct TSH Arterial Blood Glucose Arterial Blood Ionized Calcium Salicylates Acetaminophen Allied health notes reviewed: RT
--- NOTE | 2020-07-20 11:29 | Progress Note ---
Assessment and Plan Hx of Paroxysmal Atrial flutter/afib/MAT not on anticoagulation secondary to history of melena and anemia. on Diltiazem for suppression History of AR/Coronary artery disease 01/2020 echo: normal LVEF 50-55% 2017 [facility] at [facility]: ELECTRICIAN SHIP of the RCA recommend for medical therapy. She did undergo PCI of the mid LAD using bare metal stent. Altered mental status -reason for admission initial head CT scan showed small 1 cm parenchymal hemorrhage in the left parietal juxtacortical region. Chest CTA negative for PE Respiratory failure negative for COVID 19 COPD on home oxygen Hypothyroidism TSH at 15.1 Recommend: Continue medical therapy for underlying coronary artery disease and paroxysmal atrial fibrillation. Patient was previously considered not a candidate for oral anticoagulation. Subjective Date of service: 07/20/20 Principal diagnosis: Ac and ch hypoxic & hypercapnic resp failure; AE-COPD; Tobacco use disorder Interval history: Patient has no cardiac complaints. No distress noted. Sinus rhythm on telemetry. Objective Vital Signs Temp Pulse Pulse Pulse Resp Resp BP 07/20/20 07:25 98.4 F 93 H 18 163/82 07/20/20 06:11 85 128/72 07/20/20 06:01 85 07/20/20 03:39 98.2 F 99 H 16 128/72 07/20/20 01:00 89 16 07/19/20 23:26 99.0 F 98 H 17 112/55 07/19/20 22:19 87 22 07/19/20 21:21 07/19/20 21:20 81 18 07/19/20 19:06 07/19/20 19:05 98.4 F 90 16 117/69 07/19/20 18:00 89 134/66 07/19/20 16:16 98.9 F 89 20 134/66 07/19/20 13:52 86 20 07/19/20 13:20 86 18 Pulse Ox 07/20/20 07:25 87 07/20/20 06:11 07/20/20 06:01 07/20/20 03:39 91 07/20/20 01:00 95 07/19/20 23:26 93 07/19/20 22:19 93 07/19/20 21:21 93 07/19/20 21:20 07/19/20 19:06 94 07/19/20 19:05 89 07/19/20 18:00 07/19/20 16:16 92 07/19/20 13:52 07/19/20 13:20 95 - Physical Examination General: No Apparent Distress HEENT: Positive: PERRL Neck: Positive: neck supple Cardiac: Positive: Reg Rate and Rhythm Lungs: Positive: Decreased Breath Sounds Neuro: Positive: Weakness Extremities: Absent: edema - Allied health notes Allied health notes reviewed: RT
--- NOTE | 2020-07-20 12:02 | Progress Note ---
Assessment and Plan Assessment and plan: Patient is a 59-year-old female who presents to the emergency room from a local alf today with changes in mental status and generalized weakness. Most of the history was gotten from the emergency room staff as patient is unable to give any history at this time. Patient is currently intubated. Patient was brought to the emergency room by EMS and was initially on nonrebreather, she was hypoxic, blood pressure systolic was in the 80s and 90s and was unable to protect her airway and therefore subsequently intubated. Work-up in the emergency room today, chest x-ray did not reveal any significant abnormality. Labs shows elevated troponin. CTA of the chest reveals:1. No CT evidence for pulmonary embolism. 2. Bibasilar consolidation with associated tiny bilateral pleural effusions that could be due to pneumonia, aspiration, or atelectasis. 3. Additional diffuse interlobular septal thickening suggest a component of interstitial pulmonary edema. CT scan of the head reveals: Small 1 cm parenchymal hemorrhage in the left parietal juxtacortical region. Patient has been placed on empiric IV antibiotics for possible underlying pneumonia versus Covid. Neurosurgeon has also been consulted for evaluation of the findings on CT scan of the head. Acute and chronic hypoxic and hypercapnic respiratory failure Acute metabolic encephalopathy Intracranial hemorrhage incidental finding: No intervention at this time Right ICA stenosis: No intervention at this time Acute exacerbation of COPD Tobacco use disorder/Nicotine dependence (on going) Hypernatremia History of coronary artery disease/CHF History of HTN Chronic narcotic dependence Chronic back pain Anxiety disorder History of depression; Obesity; BMI 32.2 Suspected 2019 novel coronavirus: Tested negative 07/07/2020; patient was evaluated by ID and IV antibiotics discontinued. Pulmonary critical care is following. Neurosurgeon consulted in the emergency department and will follow the patient. Patient is still intubated and sedated and on mechanical ventilation, patient is still in the ED and will be transferred to ICU. Patient had episode of hypoglycemia yesterday and was treated according to hypoglycemia protocol. Patient was evaluated by cardiology for history paroxysmal A. fib and patient is not a candidate for anticoagulation because of anemia. 07/07/2020; patient has hypotension yesterday and requiring pressors and that evaluated and started her on IV cefepime and vancomycin. Patient has been fo llowed with Dr Valles and Dr. marx before. 07/09/2020; patient has hypertension and on pressors, on IV cefepime and vancomycin. Patient was seen by neurosurgery and recommend MRI once patient is stable. No neurosurgical intervention is needed. 07/10/2020: patient is pressors, on IV cefepime day 3/5. Patient was seen by neurosurgery and recommend MRI once patient is stable. No neurosurgical in tervention is needed. Pulmonary is following for vent management. 07/11/2020; patient is off pressors, on IV cefepime day 3/5. Patient was seen by neurosurgery and recommend MRI once patient is stable. No neurosurgical intervention is needed. Pulmonary is following for vent management. 07/12: No clinically changes, continue with current management,. remains on sedation, awaiting MRI. Patient remains a full code. 07/13: No new changes, will repeat Labs, wean vent as tolerated. Attempt to re ach family 07/14: Patient remains unresponsive. Continue to await MR brain. Continue weaning from the ventilator. ID has discontinued abx and signed off. Wean sedatives. No seizure epsidoe reported. 07/15: Continue supportive care wean sedation as tolerated. Monitor for any seizure activity. Cardiology input noted. 07/16: Wean sedation as tolerated, patient cardizem 60 mg by NG tube every 6 hours, and IV metoprolol 5 mg as needed for heart rate control. With regards to anticoagulation, she has previously been regarded a poor risk for long-term oral anticoagulation due to chronic anemia. her mental status appears to be improved this am, will continue vent weaning, 07/17: Continue weaning trial, midazolam stopped today. Restriants renewed, trial of lasix today. 07/18: Patient successfully extubated to nasal cannula doing well no new complaints. We will reevaluate home medications and reinitiate. Appears patient was on amiodarone and also metoprolol outpatient. And a few other medications including Seroquel. Ideally want to monitor patient in the ICU for at least 24 hours prior to transfer. 07/19: Patient has improved remarkably. Her swelling has improved also. She is tolerating some diet. She was transferred to the medical floor yesterday and has continued to do well have treated her with some additional Lasix. She will need outpatient follow-up with neurosurgery. She did have an MRI done IMPRESSION: 1. The findings correlate with the earlier CT of 07/06/2020 demonstrating small foci of subacute blood involving posterior frontal lobes as detailed above. 2. The study is limited by motion. However, there is otherwise moderate chronic microvascular angiopathy. No further input was requested by neurosurgery. Chest x-ray showed LUNGS/PLEURA: Mild diffuse interstitial prominence with mild patchy bibasilar predominant airspace disease. Etiology of her overall decompensation at the alf is still unknown at this time today and could be secondary to the subacute hemorrhage noted. Her clinical mental status has improved. Physical therapy has been obtained. And based on improvement in in her debility and also pulmonary status she should be able to discharge in the next 24 to 48 hours 07/20: Patient clinically stable and doing well. Wean oxygen as tolerated. Patient is on 4 liters of oxygen at home. Will get placement covid testing. Also PT/OT. History Interval history: Patient seen and examined and doing well. Awake this morning, following commands, no agitation noted overnight. Hospitalist Physical - Physical exam Narrative exam: VITAL SIGNS: Reviewed. GENERAL: The patient appears normally developed, vital signs as documented. HEAD: No signs of head trauma. EYES: Pupils are equal. Extraocular motions intact. EARS: hearing intact MOUTH: Oropharyngeal intact. NECK: No adenopathy, no JVD. CHEST: Chest with clear breath sounds bilaterally. No wheezes, rales, or rhonchi. CARDIAC: Regular rate and rhythm. S1 and S2, without murmurs, gallops, or rubs. VASCULAR: Generalized Edema. Peripheral pulses normal and equal in all extremities. ABDOMEN: Soft, non tender and non distended. No rebound or guarding, and no masses palpated. Bowel Sounds normal. MUSCULOSKELETAL: Extremities without clubbing, cyanosis. +1 pitting edema. NEUROLOGIC EXAM: following commands PSYCHIATRIC: Mood status is stable SKIN: detail exam as documented in skin assessment - Constitutional Vitals: Temp Pulse Resp BP Pulse Ox 98.4 F 93 H 18 163/82 87 07/20/20 07:25 07/20/20 07:25 07/20/20 07:25 07/20/20 07:25 07/20/20 07:25 General appearance: Present: other (intubated on the vent) HEART Score - HEART Score Troponin: Troponin T 0.032 ng/mL (0.00-0.029) H 07/05/20 23:06 Results - Labs CBC & Chem 7: 07/16/20 07:25 07/19/20 00:10 Labs: Laboratory Last Values WBC 7.2 K/mm3 (4.5-11.0) 07/16/20 07:25 RBC 4.27 M/mm3 (3.65-5.03) 07/16/20 07:25 Hgb 12.5 gm/dl (10.1-14.3) 07/16/20 07:25 Hct 39.3 % (30.3-42.9) 07/16/20 07:25 MCV 92 fl (79-97) 07/16/20 07:25 MCH 29 pg (28-32) 07/16/20 07:25 MCHC 32 % (30-34) 07/16/20 07:25 RDW 16.6 % (13.2-15.2) H 07/16/20 07:25 Plt Count 96 K/mm3 (140-440) L 07/16/20 07:25 Lymph % (Auto) 7.2 % (13.4-35.0) L 07/06/20 11:09 Carver % (Auto) Chimney Builder Brick 07/07/20 05:15 Eos % (Auto) 0.0 % (0.0-4.3) 07/06/20 11:09 Baso % (Auto) 0.1 % (0.0-1.8) 07/06/20 11:09 Lymph # (Auto) 0.7 K/mm3 (1.2-5.4) L 07/06/20 11:09 Carver # (Auto) 1.1 K/mm3 (0.0-0.8) H 07/06/20 11:09 Eos # (Auto) 0.0 K/mm3 (0.0-0.4) 07/06/20 11:09 Baso # (Auto) 0.0 K/mm3 (0.0-0.1) 07/06/20 11:09 Add Manual Diff Complete 07/13/20 09:50 Total Counted 100 07/13/20 09:50 Seg Neutrophils % [place]im[place] Builder Brick 07/13/20 09:50 Seg Neuts % (Manual) 96.0 % (40.0-70.0) H 07/13/20 09:50 Band Neutrophils % 0 % 07/13/20 09:50 Lymphocytes % (Manual) 3.0 % (13.4-35.0) L 07/13/20 09:50 Reactive Lymphs % (Man) 0 % 07/13/20 09:50 Monocytes % (Manual) 1.0 % (0.0-7.3) 07/13/20 09:50 Eosinophils % (Manual) 0 % (0.0-4.3) 07/13/20 09:50 Basophils % (Manual) 0 % (0.0-1.8) 07/13/20 09:50 Metamyelocytes % 0 % 07/13/20 09:50 Myelocytes % 0 % 07/13/20 09:50 Promyelocytes % 0 % 07/13/20 09:50 Blast Cells % 0 % 07/13/20 09:50 Nucleated RBC % Not Reportable 07/13/20 09:50 Seg Neutrophils # 7.9 K/mm3 (1.8-7.7) H 07/06/20 11:09 Seg Neutrophils # Man 6.9 K/mm3 (1.8-7.7) 07/13/20 09:50 Band Neutrophils # 0.0 K/mm3 07/13/20 09:50 Lymphocytes # (Manual) 0.2 K/mm3 (1.2-5.4) L 07/13/20 09:50 Abs React Lymphs (Man) 0.0 K/mm3 07/13/20 09:50 Monocytes # (Manual) 0.1 K/mm3 (0.0-0.8) 07/13/20 09:50 Eosinophils # (Manual) 0.0 K/mm3 (0.0-0.4) 07/13/20 09:50 Basophils # (Manual) 0.0 K/mm3 (0.0-0.1) 07/13/20 09:50 Metamyelocytes # 0.0 K/mm3 07/13/20 09:50 Myelocytes # 0.0 K/mm3 07/13/20 09:50 Promyelocytes # 0.0 K/mm3 07/13/20 09:50 Blast Cells # 0.0 K/mm3 07/13/20 09:50 WBC Morphology Not Reportable 07/13/20 09:50 Hypersegmented Neuts Not Reportable 07/13/20 09:50 Hyposegmented Neuts Not Reportable 07/13/20 09:50 Hypogranular Neuts Not Reportable 07/13/20 09:50 Smudge Cells Not Reportable 07/13/20 09:50 Toxic Granulation Not Reportable 07/13/20 09:50 Toxic Vacuolation Not Reportable 07/13/20 09:50 Dohle Bodies Not Reportable 07/13/20 09:50 Pelger-Huet Anomaly Not Reportable 07/13/20 09:50 Marissa Rods Not Reportable 07/13/20 09:50 Platelet Estimate Consistent w auto 07/13/20 09:50 Clumped Platelets Not Reportable 07/13/20 09:50 Plt Clumps, EDTA Not Reportable 07/13/20 09:50 Large Platelets Not Reportable 07/13/20 09:50 Giant Platelets Not Reportable 07/13/20 09:50 Platelet Satelliting Not Reportable 07/13/20 09:50 Plt Morphology Comment Not Reportable 07/13/20 09:50 RBC Morphology Normal 07/13/20 09:50 Dimorphic RBCs Not Reportable 07/13/20 09:50 Polychromasia Not Reportable 07/13/20 09:50 Hypochromasia Not Reportable 07/13/20 09:50 Poikilocytosis Not Reportable 07/13/20 09:50 Anisocytosis Not Reportable 07/13/20 09:50 Microcytosis Not Reportable 07/13/20 09:50 Macrocytosis Not Reportable 07/13/20 09:50 Spherocytes Not Reportable 07/13/20 09:50 Pappenheimer Bodies Not Reportable 07/13/20 09:50 Sickle Cells Not Reportable 07/13/20 09:50 Target Cells Not Reportable 07/13/20 09:50 Tear Drop Cells Not Reportable 07/13/20 09:50 Ovalocytes Not Reportable 07/13/20 09:50 Helmet Cells Not Reportable 07/13/20 09:50 [place] Bodies Not Reportable 07/13/20 09:50 [place] Rings Not Reportable 07/13/20 09:50 E[place]ile Cells Not Reportable 07/13/20 09:50 Bite Cells Not Reportable 07/13/20 09:50 Crenated Cell Not Reportable 07/13/20 09:50 Elliptocytes Not Reportable 07/13/20 09:50 Acanthocytes (Spur) Not Reportable 07/13/20 09:50 Rouleaux Not Reportable 07/13/20 09:50 Hemoglobin C Crystals Not Reportable 07/13/20 09:50 Schistocytes Not Reportable 07/13/20 09:50 Malaria parasites Not Reportable 07/13/20 09:50 Ab Bodies Not Reportable 07/13/20 09:50 Hem Pathologist Commnt No 07/13/20 09:50 PT 14.5 Sec. (12.2-14.9) 07/07/20 05:15 INR 1.12 (0.87-1.13) 07/07/20 05:15 APTT 30.8 Sec. (24.2-36.6) 07/05/20 23:06 D-Dimer 1298.20 ng/mlDDU (0-234) H 07/05/20 23:06 ABG pH 7.434 pH Units (7.350-7.450) 07/14/20 04:05 POC ABG pCO2 50.3 mmHg (32.0-48.0) H 07/13/20 22:00 ABG pCO2 48.5 mm Hg 07/14/20 04:05 POC ABG pO2 69.1 mmHg (83-108) L 07/13/20 03:33 ABG pO2 69.1 mm Hg (80.0-90.0) L 07/14/20 04:05 POC ABG HCO3 29.0 07/13/20 22:00 ABG HCO3 31.8 mmol/L (20.0-26.0) H 07/14/20 04:05 ABG O2 Saturation 94.8 % (95.0-99.0) L 07/14/20 04:05 ABG O2 Content 15.3 (0.0-44) 07/14/20 04:05 POC ABG Base Excess 3.0 07/13/20 22:00 ABG Base Excess 6.6 mmol/L (-2.0-3.0) H 07/14/20 04:05 ABG Hemoglobin 11.7 gm/dl (12.0-16.0) L 07/14/20 04:05 ABG Carboxyhemoglobin 1.5 % (0.0-5.0) 07/14/20 04:05 ABG Methemoglobin 0.4 % (0.0-1.5) 07/14/20 04:05 ABG Sodium 137.5 mmol/L (136.0-145.0) 07/13/20 22:00 ABG Potassium 4.1 mmol/L (3.40-4.50) 07/13/20 22:00 ABG Chloride 103.0 mmol/L (98-107) 07/13/20 22:00 ABG Glucose 128 mg/dL (65-95) H 07/13/20 22:00 Oxyhemoglobin 93.0 % (95.0-99.0) L 07/14/20 04:05 FiO2 40 % 07/14/20 04:05 Sodium 141 mmol/L (137-145) 07/19/20 00:10 Potassium 3.6 mmol/L (3.6-5.0) 07/19/20 00:10 Chloride 100.5 mmol/L (98-107) 07/19/20 00:10 Carbon Dioxide 32 mmol/L (22-30) H 07/19/20 00:10 Anion Gap 12 mmol/L 07/19/20 00:10 BUN 16 mg/dL (7-17) 07/19/20 00:10 Creatinine 0.2 mg/dL (0.6-1.2) L 07/19/20 00:10 Estimated GFR > 60 ml/min 07/19/20 00:10 BUN/Creatinine Ratio 80 % 07/19/20 00:10 Glucose 161 mg/dL (65-100) H 07/19/20 00:10 POC Glucose 160 mg/dL (70-105) H 07/20/20 11:54 Lactic Acid 0.80 mmol/L (0.7-2.0) 07/05/20 23:06 Calcium 8.3 mg/dL (8.4-10.2) L 07/19/20 00:10 Magnesium 2.00 mg/dL (1.7-2.3) 07/05/20 23:06 Ferritin 60.8 ng/mL (10.0-200.0) 07/05/20 23:06 Total Bilirubin 0.30 mg/dL (0.1-1.2) 07/06/20 Unknown AST 13 units/L (5-40) 07/06/20 Unknown ALT 10 units/L (7-56) 07/06/20 Unknown Alkaline Phosphatase 71 units/L (35-129) 07/06/20 Unknown Ammonia 40.0 umol/L (25-60) 07/05/20 23:06 Lactate Dehydrogenase 217 units/L (91-180) H 07/05/20 23:06 Lactate Dehydrogenase 217 units/L (91-180) H 07/05/20 23:06 Total Creatine Kinase 55 units/L (30-135) 07/05/20 23:06 Troponin T 0.032 ng/mL (0.00-0.029) H 07/05/20 23:06 C-Reactive Protein 1.60 mg/dL (0.00-1.30) H 07/05/20 23:06 C-Reactive Protein 1.60 mg/dL (0.00-1.30) H 07/05/20 23:06 NT-Pro-B Natriuret Pep 13295 pg/mL (0-900) H 07/06/20 11:09 Total Protein 4.4 g/dL (6.3-8.2) L 07/06/20 Unknown Albumin 2.2 g/dL (3.9-5) L 07/06/20 Unknown Albumin/Globulin Ratio 1.0 % 07/06/20 Unknown Triglycerides 126 mg/dL (2-149) 07/05/20 23:06 Cholesterol 109 mg/dL (50-199) 07/05/20 23:06 LDL Cholesterol Direct 43 mg/dL (50-130) L 07/05/20 23:06 HDL Cholesterol 42 mg/dL (40-59) 07/05/20 23:06 Cholesterol/HDL Ratio 2.59 % 07/05/20 23:06 Procalcitonin < 0.05 ng/mL (<0.15) 07/05/20 23:06 TSH 15.130 mlU/mL (0.270-4.200) H 07/05/20 23:06 Free T4 0.79 ng/dL (0.76-1.46) 07/06/20 11:09 Arterial Blood Glucose 128 mg/dL (65-95) H 07/13/20 22:00 Arterial Blood Ionized Calcium 4.9 mg/dL (4.6-5.3) 07/13/20 22:00 Urine Color Mildred (Yellow) 07/05/20 Unknown Urine Turbidity Clear (Clear) 07/05/20 Unknown Urine pH 5.0 (5.0-7.0) 07/05/20 Unknown Ur Specific Tracy 1.025 (1.003-1.030) 07/05/20 Unknown Urine Protein 30 mg/dl mg/dL (Negative) 07/05/20 Unknown Urine Glucose (UA) Neg mg/dL (Negative) 07/05/20 Unknown Urine Ketones Neg mg/dL (Negative) 07/05/20 Unknown Urine Blood Neg (Negative) 07/05/20 Unknown Urine Nitrite Neg (Negative) 07/05/20 Unknown Urine Bilirubin Neg (Negative) 07/05/20 Unknown Urine Urobilinogen 4.0 mg/dL (<2.0) 07/05/20 Unknown Ur Leukocyte Esterase Neg (Negative) 07/05/20 Unknown Urine WBC (Auto) 2.0 /HPF (0.0-6.0) 07/05/20 Unknown Urine RBC (Auto) 1.0 /HPF (0.0-6.0) 07/05/20 Unknown U Epithel Cells (Auto) 1.0 /HPF (0-13.0) 07/05/20 Unknown Hyaline Casts 16 /LPF 07/05/20 Unknown Urine Mucus Few /HPF 07/05/20 Unknown Salicylates < 0.3 mg/dL (2.8-20.0) L 07/05/20 23:06 Acetaminophen < 5.0 ug/mL (10.0-30.0) L 07/05/20 23:06 Plasma/Serum Alcohol < 0.01 % (0-0.07) 07/05/20 23:06 Coronavirus (PCR) Negative (Negative) 07/06/20 Unknown Blood Type O POSITIVE 07/05/20 23:10 Antibody Screen Negative 07/05/20 23:10 Roberts/IV: Voiding Method External Female Catheter IV Catheter Type [Right Upper PICC Line arm] IV Catheter Type [Right INT / Saline Lock External Jugular] IV Catheter Type [Left Triple Lumen Cath Internal Jugular] Active Medications - Current Medications Current Medications: Generic Name Dose Route Start Last Admin Trade Name Freq PRN Reason Stop Dose Admin Acetaminophen 650 mg 07/06/20 02:44 Tylenol ME Q4H PRN Pain, Mild (1-3) Acetaminophen 650 mg 07/18/20 17:16 Tylenol PO Q4H PRN Pain, Mild (1-3) Albuterol/Ipratropium 1 ampul 07/18/20 10:00 07/20/20 08:20 Duoneb *Not For Prn Use* IH 1 ampul Q8HRT LUZ MARIA Administration Atorvastatin Calcium 40 mg 07/18/20 22:00 07/19/20 21:29 Lipitor PO 40 mg QHS LUZ MARIA Administration Bisacodyl 10 mg 07/06/20 02:44 Dulcolax ME QDAY PRN Constipation unrelieved by WING Dextrose 0 ml 07/06/20 19:30 07/06/20 19:25 D50w (25gm) Syringe IV 30 ml ONCE PRN Administration Hypoglycemia Diltiazem HCl 60 mg 07/14/20 14:00 07/20/20 11:40 Cardizem PO 60 mg Q6HR LUZ MARIA Administration Famotidine 20 mg 07/09/20 10:00 07/20/20 09:09 Pepcid PO 20 mg BID LUZ MARIA Administration Hydralazine HCl 5 mg 07/06/20 02:30 Apresoline IV Q30MIN PRN Hypertension Hydrophilic Ointment 1 applic 07/05/20 22:08 Vaseline Lip Therapy TP Q2HR PRN Dry Lips Lactulose 20 gm 07/18/20 12:00 07/20/20 11:39 Cephulac PO 20 gm Q6HR LUZ MARIA Administration Magnesium Hydroxide 30 ml 07/14/20 12:06 Milk Of Magnesia PO Q4H PRN Constipation Melatonin 10 mg 07/18/20 22:00 07/19/20 21:28 Melatonin PO 10 mg QHS LUZ MARIA Administration Methylprednisolone Sodium Succinate 60 mg 07/08/20 22:00 07/20/20 06:11 Solu-Medrol IV 60 mg Q8HR LUZ MARIA Administration Metoprolol Tartrate 5 mg 07/14/20 13:20 Metoprolol IV Q6HR PRN HR >120 Multi-Ingred Cream/Lotion/Oil/Oint 1 applic 07/05/20 22:08 Artificial Tears Ophth Oint OU Q4HR PRN Dry Eye(s) Ondansetron HCl 4 mg 07/06/20 02:44 Zofran IV Q8H PRN N/V unrelieved by Live Quetiapine Fumarate 200 mg 07/15/20 22:00 07/20/20 09:09 Seroquel PO 200 mg BID LUZ MARIA Administration Sodium Chloride 10 ml 07/06/20 10:00 07/20/20 09:10 Sodium Chloride Flush Syringe 10 Ml IV 10 ml BID LUZ MARIA Administration Sodium Chloride 10 ml 07/06/20 02:44 07/17/20 05:03 Sodium Chloride Flush Syringe 10 Ml IV 10 ml PRN PRN Administration LINE FLUSH Nutrition/Malnutrition Assess - Dietary Evaluation Nutrition/Malnutrition Findings: Nutrition Notes Start: 07/06/20 09:30 Freq: Status: Active Protocol: Document 07/14/20 12:42 LP (Rec: 07/14/20 12:44 LP [id number]) Nutrition Notes Initial or Follow up Reassessment Current Diagnosis COPD,Heart Failure,Respiratory Failure Other Pertinent Diagnosis Acute enephalopathy, COVID-19 negative, Intracranial hemorrhage Current Diet Promote at 60ml/hr Labs/Tests Reviewed Pertinent Medications Reviewed Height 5 ft Weight 71.214 kg [place] Body Weight (kg) 45.45 BMI 30.7 Weight Status Obese Subjective/Other Information Pt tolerating Promote at 60ml/ hr (goal rate). Percent of energy/protein needs met: 99%/99% Burn Absent Trauma Absent Food Allergy No Current % PO Negligible Minimum of two criteria No physical signs of malnutrition #1 Nutrition Diagnosis Inadequate oral intake Diagnosis Progress(for reassessment Continues documentation) Is patient on ventilator? Yes Is Patient Ambulatory and/or Out of Bed No REE-([facility]-confined to bed) 1443.372 Calculation Used for Recommendations [facility] Additional Notes Protein: >2 g/kg IBW: >91g Fluid: 1 ml/kcal Nutrition Intervention Change Diet Order: TF Nutrition Support: Promote 1.0 at 60 ml/hr (goal rate) Flush 50ml q4h Kcal 1,440 Protein (gm) 90 Fluid (mL) 1,208 Goal #1 Meet at least 80% of kcal and protein needs via TF Anticipated Discharge Needs: Unable to determine at this time Follow-Up By: 07/21/20 Additional Comments Follow for stable TF and labs
[2020-07-20] MEDS: MELATONIN 5 MG TAB PO SCH (21:18)
[2020-07-21] MEDS: dilTIAZem 60 MG TAB PO SCH ×4 (00:15→18:30)
[2020-07-21] MEDS: LACTULOSE 20 GM/30 ML ORAL LIQD PO SCH ×4 (00:15→18:30)
[2020-07-21] MEDS: IPRATROPIUM/ALBUTEROL SULFATE 3 ML AMPUL.NEB IH SCH ×4 (00:42→22:18)
[2020-07-21] MEDS: methylPREDNISolone Sod Succinate 125 MG/2 ML INJ IV SCH ×2 (06:02→15:04)
[2020-07-21] MEDS: QUEtiapine 200 MG TAB PO SCH ×2 (09:26→21:48)
[2020-07-21] MEDS: FAMOTIDINE 20 MG TAB PO SCH ×2 (09:26→21:48)
--- NOTE | 2020-07-21 11:03 | Discharge Summary ---
Providers - Providers Date of Admission: 07/06/20 02:35 Attending physician: ZIYAD LUDWIG MD 07/05/20 22:08 Consult to Dietitian/Nutrition [CONS] Routine Physician Instructions: Reason For Exam: Reason for Consult: Evaluate nutritional intake 07/05/20 22:12 Consult to Physician [CONS] Urgent Comment: Consulting Provider: HORACIO CLARKE Physician Instructions: Reason For Exam: hypoxia, resp failure suspected covid 07/06/20 02:27 Consult to Physician [CONS] Urgent Comment: left mess. off. [id number] cell [id number] gallo Consulting Provider: KATHY FLORIAN Physician Instructions: Reason For Exam: brain bleed 07/06/20 02:45 Occupational Therapy Evaluate and Treat [CONS] Routine Comment: Reason For Exam: Neuro deficits Physical Therapy Evaluation and Treat [CONS] Routine Comment: Reason For Exam: Neuro deficits 07/06/20 02:55 Consult to Physician [CONS] Routine Comment: Consulting Provider: MUMTAZ MICHELLE Physician Instructions: Reason For Exam: ALTERED MENTAL STATUS, HYPOXIA, ELEVATE TROPONIN 07/06/20 14:53 Consult to Physician [CONS] Routine Comment: Consulting Provider: REYES AUGUSTE Physician Instructions: Reason For Exam: right ICA stenosis 07/08/20 11:35 Consult to Physician [CONS] Routine Comment: Consulting Provider: DOREEN NEUMANN Physician Instructions: Reason For Exam: Critical care management Consult to Physician [CONS] Routine Comment: carmenza carreon/ gallo Consulting Provider: DOREEN NEUMANN Physician Instructions: KNown to Physician and Group Reason For Exam: Acute respiratory failure 07/08/20 12:14 Consult to Dietitian/Nutrition [CONS] Routine Physician Instructions: Reason For Exam: Reason for Consult: Write/Manage Tube Feeding 07/09/20 07:30 Consult to PICC Line RN [CONS] Stat Reason For Exam: need access may require restart vasopressors Type Line:: PICC 07/17/20 18:37 Speech Therapy Evaluation and Treat [CONS] Routine Reason For Exam: swallow evaluation post extubation 07/19/20 08:27 Occupational Therapy Evaluate and Treat [CONS] Routine Comment: Reason For Exam: DEBILITY Physical Therapy Evaluation and Treat [CONS] Routine Comment: Reason For Exam: DEBILITY Primary care physician: BRANDON DUMONT Hospitalization Reason for admission: respiratory failure Condition: Stable Hospital course: Patient is a 59-year-old female who presents to the emergency room from a local [facility] today with changes in mental status and generalized weakness. Most of the history was gotten from the emergency room staff as patient is unable to give any history at this time. Patient is currently intubated. Patient was brought to the emergency room by EMS and was initially on nonrebreather, she was hypoxic, blood pressure systolic was in the 80s and 90s and was unable to protect her airway and therefore subsequently intubated. Work-up in the emergency room today, chest x-ray did not reveal any significant abnormality. Labs shows elevated troponin. CTA of the chest reveals:1. No CT evidence for pulmonary embolism. 2. Bibasilar consolidation with associated tiny bilateral pleural effusions that could be due to pneumonia, aspiration, or atelectasis. 3. Additional diffuse interlobular septal thickening suggest a component of interstitial pulmonary edema. CT scan of the head reveals: Small 1 cm parenchymal hemorrhage in the left parietal juxtacortical region. Patient has been placed on empiric IV antibiotics for possible underlying pneumonia versus Covid. Neurosurgeon has also been consulted for evaluation of the findings on CT scan of the head. Acute and chronic hypoxic and hypercapnic respiratory failure Acute metabolic encephalopathy Intracranial hemorrhage incidental finding: No intervention at this time Right ICA stenosis: No intervention at this time Acute exacerbation of COPD Tobacco use disorder/Nicotine dependence Hypernatremia History of coronary artery disease/CHF History of HTN Chronic narcotic dependence Chronic back pain Anxiety disorder History of depression Obesity; BMI 32.2 Suspected 2019 novel Coronavirus: Tested negative 07/07/2020; patient was evaluated by ID and IV antibiotics discontinued. Pulmonary critical care is following. Neurosurgeon consulted in the emergency department and will follow the patient. Patient is still intubated and sedated and on mechanical ventilation, patient is still in the ED and will be transferred to ICU. Patient had episode of hypoglycemia yesterday and was treated according to hypoglycemia protocol. Patient was evaluated by cardiology for history paroxysmal A. fib and patient is not a candidate for anticoagulation because of anemia. 07/07/2020; patient has hypotension yesterday and requiring pressors and that evaluated and started her on IV cefepime and vancomycin. Patient has been followed with Dr Valles and Dr. marx before. 07/09/2020; patient has hypertension and on pressors, on IV cefepime and vancomycin. Patient was seen by neurosurgery and recommend MRI once patient is stable. No neurosurgical intervention is needed. 07/10/2020: Patient is pressors, on IV cefepime day 3/5. Patient was seen by neurosurgery and recommend MRI once patient is stable. No neurosurgical intervention is needed. Pulmonary is following for vent management. 07/11/2020; patient is off pressors, on IV cefepime day 3/5. Patient was seen by neurosurgery and recommend MRI once patient is stable. No neurosurgical intervention is needed. Pulmonary is following for vent management. 07/12: No clinically changes, continue with current management,. remains on sedation, awaiting MRI. Patient remains a full code. 07/13: No new changes, will repeat Labs, wean vent as tolerated. Attempt to reach family 07/14: Patient remains unresponsive. Continue to await MR brain. Continue weaning from the ventilator. ID has discontinued abx and signed off. Wean sedatives. No seizure epsidoe reported. 07/15: Continue supportive care wean sedation as tolerated. Monitor for any seizure activity. Cardiology input noted. 07/16: Wean sedation as tolerated, patient cardizem 60 mg by NG tube every 6 h ours, and IV metoprolol 5 mg as needed for heart rate control. With regards to anticoagulation, she has previously been regarded a poor risk for long-term oral anticoagulation due to chronic anemia. her mental status appears to be improved this am, will continue vent weaning, 07/17: Continue weaning trial, midazolam stopped today. Restriants renewed, trial of lasix today. 07/18: Patient successfully extubated to nasal cannula doing well no new complaints. We will reevaluate home medications and reinitiate. Appears patient was on amiodarone and also metoprolol outpatient. And a few other medications including Seroquel. Ideally want to monitor patient in the ICU for at least 24 hours prior to transfer. 07/19: Patient has improved remarkably. Her swelling has improved also. She is tolerating some diet. She was transferred to the medical floor yesterday and has continued to do well have treated her with some additional Lasix. She will need outpatient follow-up with neurosurgery. She did have an MRI done IMPRESSION: 1. The findings correlate with the earlier CT of 07/06/2020 demonstrating small foci of subacute blood involving posterior frontal lobes as detailed above. 2. The study is limited by motion. However, there is otherwise moderate chronic microvascular angiopathy. No further input was requested by neurosurgery. Chest x-ray showed LUNGS/PLEURA: Mild diffuse interstitial prominence with mild patchy bibasilar predominant airspace disease. Etiology of her overall decompensation at the fpc is still unknown at this time today and could be secondary to the subacute hemorrhage noted. Her clinical mental status has improved. Physical therapy has been obtained. And based on improvement in in her debility and also pulmonary status she should be able to discharge in the next 24 to 48 hours 07/20: Patient clinically stable and doing well. Wean oxygen as tolerated. Patient is on 4 liters of oxygen at home. Will get placement covid testing. Also PT/OT. Disposition: DC/[place]-[facility] Time spent for discharge: 35 MINS Core Measure Documentation - Palliative Care Palliative Care/ Comfort Measures: Not Applicable - Core Measures Any of the following diagnoses?: none Exam - Physical Exam Narrative exam: VITAL SIGNS: Reviewed. GENERAL: The patient appears normally developed, vital signs as documented. HEAD: No signs of head trauma. EYES: Pupils are equal. Extraocular motions intact. EARS: hearing intact MOUTH: Oropharyngeal intact. NECK: No adenopathy, no JVD. CHEST: Chest with DIMINISHED breath sounds bilaterally. No wheezes, rales, or rhonchi. CARDIAC: Regular rate and rhythm. S1 and S2, without murmurs, gallops, or rubs. VASCULAR: Generalized Edema. Peripheral pulses normal and equal in all extremities. ABDOMEN: Soft, non tender and non distended. No rebound or guarding, and no masses palpated. Bowel Sounds normal. MUSCULOSKELETAL: Extremities without clubbing, cyanosis. +trace pitting edema. NEUROLOGIC EXAM: following commands PSYCHIATRIC: Mood status is stable SKIN: detail exam as documented in skin assessment - Constitutional Vitals: Temp Pulse Resp BP Pulse Ox 99.2 F 92 H 18 145/75 98 07/21/20 03:47 07/21/20 07:58 07/21/20 07:58 07/21/20 06:02 07/21/20 08:01 Plan Activity: advance as tolerated, up only with assistance Diet: low fat, low cholesterol Special Instructions: record daily weights, record daily BP diary, home oxygen via (nasal cannula @ 3 liters per minute), other (BIPAP at night) Follow up with: BRANDON DUMONT MD [Primary Care Provider] - 3-5 Days ESTEBAN CARABALLO MD [Staff Physician] - 7 Days CANDE CALLOWAY MD [Staff Physician] - 7 Days Prescriptions: Melatonin [Melatonin 5MG TAB] 10 mg PO QHS #30 tablet dilTIAZem [Cardizem] 60 mg PO Q8HR #60 tablet HYDROcodone/APAP 5-325 [[place] 5-325 mg TAB] 1 each PO Q6HR PRN #14 tablet PRN Reason: Pain Famotidine [Pepcid] 20 mg PO BID #60 tablet Prednisone [predniSONE 5 mg (6-Day Pack, 21 Tabs)] 5 mg PO .TAPER #1 tab.ds.pk QUEtiapine [SEROquel] 200 mg PO BID #60 tablet
--- NOTE | 2020-07-21 11:47 | Progress Note ---
Assessment and Plan Hx of Paroxysmal Atrial flutter/afib/MAT not on anticoagulation secondary to history of melena and anemia. on Diltiazem for suppression History of [place]/Coronary artery disease 01/2020 echo: normal LVEF 50-55% 2017 [facility]: [employer] of the [employer] recommend for medical therapy. She did undergo PCI of the mid LAD using bare metal stent. Altered mental status -reason for admission initial head CT scan showed small 1 cm parenchymal hemorrhage in the left parietal juxtacortical region. Chest CTA negative for PE Respiratory failure negative for COVID 19 COPD on home oxygen Hypothyroidism TSH at 15.1 Recommend: Continue medical therapy for underlying coronary artery disease and paroxysmal atrial fibrillation. Patient was previously considered not a candidate for oral anticoagulation. Otherwise, conservative cardiac management. Subjective Date of service: 07/21/20 Principal diagnosis: Ac and ch hypoxic & hypercapnic resp failure; AE-COPD; Tobacco use disorder Interval history: Patient has no cardiac complaints. No distress noted. Sinus rhythm on telemetry. Objective Vital Signs Temp Pulse Pulse Pulse Pulse Pulse Resp 07/21/20 08:01 07/21/20 07:58 92 H 07/21/20 07:43 88 88 16 07/21/20 06:02 90 07/21/20 03:47 99.2 F 90 16 07/21/20 00:43 07/21/20 00:15 86 07/20/20 23:32 100.1 F H 122 H 16 07/20/20 23:26 99.0 F 89 16 07/20/20 23:00 99.1 F 86 18 07/20/20 22:10 68 07/20/20 21:15 88 88 16 07/20/20 20:00 98.9 F 88 16 07/20/20 16:00 101 H 07/20/20 15:55 96 H 84 07/20/20 12:00 93 H 07/20/20 11:55 98.3 F 101 H 18 Resp Resp BP BP Pulse Ox 07/21/20 08:01 98 07/21/20 07:58 18 07/21/20 07:43 98 07/21/20 06:02 145/75 07/21/20 03:47 145/75 95 07/21/20 00:43 95 07/21/20 00:15 141/69 07/20/20 23:32 163/46 99 12/01/20 23:26 141/69 77 L 07/20/20 23:00 141/69 96 07/20/20 22:10 07/20/20 21:15 98 07/20/20 20:00 157/70 98 07/20/20 16:00 07/20/20 15:55 18 18 07/20/20 12:00 07/20/20 11:55 155/78 94 - Physical Examination General: No Apparent Distress HEENT: Positive: PERRL Neck: Positive: neck supple Cardiac: Positive: Reg Rate and Rhythm Lungs: Positive: Decreased Breath Sounds, Wheezes Neuro: Positive: Weakness Extremities: Absent: edema - Allied health notes Allied health notes reviewed: RT
--- NOTE | 2020-07-21 18:52 | Progress Note ---
Assessment and Plan Assessment and plan: Patient is a 59-year-old female who presents [facility] the emergency room [facility] a local [facility] today with changes in mental status and generalized weakness. Most of the history was gotten from the emergency room staff as patient is unable to give any history at this time. Patient is currently intubated. Patient was brought to the emergency room by EMS and was initially on nonrebreather, she was hypoxic, blood pressure systolic was in the 80s and 90s and was unable to protect her airway and therefore subsequently intubated. Work-up in the emergency room today, chest x-ray did not reveal any significant abnormality. Labs shows elevated troponin. CTA of the chest reveals:1. No CT evidence for pulmonary embolism. 2. Bibasilar consolidation with associated tiny bilateral pleural effusions that could be due to pneumonia, aspiration, or atelectasis. 3. Additional diffuse interlobular septal thickening suggest a component of interstitial pulmonary edema. CT scan of the head reveals: Small 1 cm parenchymal hemorrhage in the left parietal juxtacortical region. Patient has been placed on empiric IV antibiotics for possible underlying pneumonia versus Covid. Neurosurgeon has also been consulted for evaluation of the findings on CT scan of the head. Acute and chronic hypoxic and hypercapnic respiratory failure Acute metabolic encephalopathy Intracranial hemorrhage incidental finding: No intervention at this time Right ICA stenosis: No intervention at this time Acute exacerbation of COPD Tobacco use disorder/Nicotine dependence (on going) Thrombocytopenia Hypernatremia History of coronary artery disease/CHF History of HTN Chronic narcotic dependence Chronic back pain Anxiety disorder History of depression; Obesity; BMI 32.2 Suspected 2019 novel coronavirus: Tested negative 07/07/2020; patient was evaluated by ID and IV antibiotics discontinued. Pulmonary critical care is following. Neurosurgeon consulted in the emergency department and will follow the patient. Patient is still intubated and sedated and on mechanical ventilation, patient is still in the ED and will be transferred to ICU. Patient had episode of hypoglycemia yesterday and was treated according to hypoglycemia protocol. Patient was evaluated by cardiology for history paroxysmal A. fib and patient is not a candidate for anticoagulation because of anemia. 07/07/2020; patient has hypotension yesterday and requiring pressors and that evaluated and started her on IV cefepime and vancomycin. Patient has been followed with Dr Valles and Dr. maxr before. 07/09/2020; patient has hypertension and on pressors, on IV cefepime and vancomycin. Patient was seen by neurosurgery and recommend MRI once patient is stable. No neurosurgical intervention is needed. 07/10/2020: patient is pressors, on IV cefepime day 3/5. Patient was seen by neurosurgery and recommend MRI once patient is stable. No neurosurgical intervention is needed. Pulmonary is following for vent management. 07/11/2020; patient is off pressors, on IV cefepime day 3/5. Patient was seen by neurosurgery and recommend MRI once patient is stable. No neurosurgical intervention is needed. Pulmonary is following for vent management. 07/12: No clinically changes, continue with current management,. remains on sedation, awaiting MRI. Patient remains a full code. 07/13: No new changes, will repeat Labs, wean vent as tolerated. Attempt to reach family 07/14: Patient remains unresponsive. Continue to await MR brain. Continue weaning from the ventilator. ID has discontinued abx and signed off. Wean sedatives. No seizure epsidoe reported. 07/15: Continue supportive care wean sedation as tolerated. Monitor for any sei zure activity. Cardiology input noted. 07/16: Wean sedation as tolerated, patient cardizem 60 mg by NG tube every 6 hours, and IV metoprolol 5 mg as needed for heart rate control. With regards to anticoagulation, she has previously been regarded a poor risk for long-term oral anticoagulation due to chronic anemia. her mental status appears to be improved this am, will continue vent weaning, 07/17: Continue weaning trial, midazolam stopped today. Restraints renewed, trial of lasix today. 07/18: Patient successfully extubated to nasal cannula doing well no new co mplaints. We will reevaluate home medications and reinitiate. Appears patient was on amiodarone and also metoprolol outpatient. And a few other medications including Seroquel. Ideally want to monitor patient in the ICU for at least 24 hours prior to transfer. 07/19: Patient has improved remarkably. Her swelling has improved also. She is tolerating some diet. She was transferred to the medical floor yesterday and has continued to do well have treated her with some additional Lasix. She will need outpatient follow-up with neurosurgery. She did have an MRI doneIMPRESSIO N: 1. The findings correlate with the earlier CT of 07/06/2020 demonstrating small foci of subacute blood involving posterior frontal lobes as detailed above. 2. The study is limited by motion. However, there is otherwise moderate chronic microvascular angiopathy. No further input was requested by neurosurgery. Chest x-ray showed LUNGS/PLEURA: Mild diffuse interstitial prominence with mild patchy bibasilar predominant airspace disease. Etiology of her overall decompensation at the fci is still unknown at this time today and could be secondary to the subacute hemorrhage noted. Her clinical mental status has improved. Physical therapy has been obtained. And based on improvement in in her debility and also pulmonary status she should be able to discharge in the next 24 to 48 hours 07/20: Patient clinically stable and doing well. Wean oxygen as tolerated. Patient is on 4 liters of oxygen at home. Will get placement covid testing. Also PT/OT. 07/21: Patient clinically stable, awaiting discharge, continue to wean oxygen, informed to wear oxygen as tolerated, walk test. History Interval history: Patient seen and examined and doing well. Awake this morning, following commands, no agitation noted overnight. Patient was discharged today unfortunately the facility refused to accept the patient due to oxygen saturation which they felt was too high. Hospitalist Physical - Physical exam Narrative exam: VITAL SIGNS: Reviewed. GENERAL: The patient appears normally developed, vital signs as documented. HEAD: No signs of head trauma. EYES: Pupils are equal. Extraocular motions intact. EARS: hearing intact MOUTH: Oropharyngeal intact. NECK: No adenopathy, no JVD. CHEST: Chest with DIMINISHED breath sounds bilaterally. No wheezes, rales, or rhonchi. CARDIAC: Regular rate and rhythm. S1 and S2, without murmurs, gallops, or rubs. VASCULAR: Generalized Edema. Peripheral pulses normal and equal in all extremities. ABDOMEN: Soft, non tender and non distended. No rebound or guarding, and no masses palpated. Bowel Sounds normal. MUSCULOSKELETAL: Extremities without clubbing, cyanosis. +trace pitting edema. NEUROLOGIC EXAM: following commands PSYCHIATRIC: Mood status is stable SKIN: detail exam as documented in skin assessment - Constitutional Vitals: Temp Pulse Resp BP Pulse Ox 98.1 F 93 H 20 147/78 94 07/21/20 09:08 07/21/20 13:35 07/21/20 13:35 07/21/20 09:08 07/21/20 13:36 General appearance: Present: other (intubated on the vent) HEART Score - HEART Score Troponin: Troponin T 0.032 ng/mL (0.00-0.029) H 07/05/20 23:06 Results - Labs CBC & Chem 7: 07/16/20 07:25 07/19/20 00:10 Labs: Laboratory Last Values WBC 7.2 K/mm3 (4.5-11.0) 07/16/20 07:25 RBC 4.27 M/mm3 (3.65-5.03) 07/16/20 07:25 Hgb 12.5 gm/dl (10.1-14.3) 07/16/20 07:25 Hct 39.3 % (30.3-42.9) 07/16/20 07:25 MCV 92 fl (79-97) 07/16/20 07:25 MCH 29 pg (28-32) 07/16/20 07:25 MCHC 32 % (30-34) 07/16/20 07:25 RDW 16.6 % (13.2-15.2) H 07/16/20 07:25 Plt Count 96 K/mm3 (140-440) L 07/16/20 07:25 Lymph % (Auto) 7.2 % (13.4-35.0) L 07/06/20 11:09 [place] % (Auto) Bicycle Technician 07/07/20 05:15 Eos % (Auto) 0.0 % (0.0-4.3) 07/06/20 11:09 Baso % (Auto) 0.1 % (0.0-1.8) 07/06/20 11:09 Lymph # (Auto) 0.7 K/mm3 (1.2-5.4) L 07/06/20 11:09 [place] # (Auto) 1.1 K/mm3 (0.0-0.8) H 07/06/20 11:09 Eos # (Auto) 0.0 K/mm3 (0.0-0.4) 07/06/20 11:09 Baso # (Auto) 0.0 K/mm3 (0.0-0.1) 07/06/20 11:09 Add Manual Diff Complete 07/13/20 09:50 Total Counted 100 07/13/20 09:50 Seg Neutrophils % Bicycle Technician 07/13/20 09:50 Seg Neuts % (Manual) 96.0 % (40.0-70.0) H 07/13/20 09:50 Band Neutrophils % 0 % 07/13/20 09:50 Lymphocytes % (Manual) 3.0 % (13.4-35.0) L 07/13/20 09:50 Reactive Lymphs % (Man) 0 % 07/13/20 09:50 Monocytes % (Manual) 1.0 % (0.0-7.3) 07/13/20 09:50 Eosinophils % (Manual) 0 % (0.0-4.3) 07/13/20 09:50 Basophils % (Manual) 0 % (0.0-1.8) 07/13/20 09:50 Metamyelocytes % 0 % 07/13/20 09:50 Myelocytes % 0 % 07/13/20 09:50 Promyelocytes % 0 % 07/13/20 09:50 Blast Cells % 0 % 07/13/20 09:50 Nucleated RBC % Not Reportable 07/13/20 09:50 Seg Neutrophils # 7.9 K/mm3 (1.8-7.7) H 07/06/20 11:09 Seg Neutrophils # Man 6.9 K/mm3 (1.8-7.7) 07/13/20 09:50 Band Neutrophils # 0.0 K/mm3 07/13/20 09:50 Lymphocytes # (Manual) 0.2 K/mm3 (1.2-5.4) L 07/13/20 09:50 Abs React Lymphs (Man) 0.0 K/mm3 07/13/20 09:50 Monocytes # (Manual) 0.1 K/mm3 (0.0-0.8) 07/13/20 09:50 Eosinophils # (Manual) 0.0 K/mm3 (0.0-0.4) 07/13/20 09:50 Basophils # (Manual) 0.0 K/mm3 (0.0-0.1) 07/13/20 09:50 Metamyelocytes # 0.0 K/mm3 07/13/20 09:50 Myelocytes # 0.0 K/mm3 07/13/20 09:50 Promyelocytes # 0.0 K/mm3 07/13/20 09:50 Blast Cells # 0.0 K/mm3 07/13/20 09:50 WBC Morphology Not Reportable 07/13/20 09:50 Hypersegmented Neuts Not Reportable 07/13/20 09:50 Hyposegmented Neuts Not Reportable 07/13/20 09:50 Hypogranular Neuts Not Reportable 07/13/20 09:50 Smudge Cells Not Reportable 07/13/20 09:50 Toxic Granulation Not Reportable 07/13/20 09:50 Toxic Vacuolation Not Reportable 07/13/20 09:50 Dohle Bodies Not Reportable 07/13/20 09:50 Pelger-Huet Anomaly Not Reportable 07/13/20 09:50 Marissa Rods Not Reportable 07/13/20 09:50 Platelet Estimate Consistent w auto 07/13/20 09:50 Clumped Platelets Not Reportable 07/13/20 09:50 Plt Clumps, EDTA Not Reportable 07/13/20 09:50 Large Platelets Not Reportable 07/13/20 09:50 Giant Platelets Not Reportable 07/13/20 09:50 Platelet Satelliting Not Reportable 07/13/20 09:50 Plt Morphology Comment Not Reportable 07/13/20 09:50 RBC Morphology Normal 07/13/20 09:50 Dimorphic RBCs Not Reportable 07/13/20 09:50 Polychromasia Not Reportable 07/13/20 09:50 Hypochromasia Not Reportable 07/13/20 09:50 Poikilocytosis Not Reportable 07/13/20 09:50 Anisocytosis Not Reportable 07/13/20 09:50 Microcytosis Not Reportable 07/13/20 09:50 Macrocytosis Not Reportable 07/13/20 09:50 Spherocytes Not Reportable 07/13/20 09:50 Pappenheimer Bodies Not Reportable 07/13/20 09:50 Sickle Cells Not Reportable 07/13/20 09:50 Target Cells Not Reportable 07/13/20 09:50 Tear Drop Cells Not Reportable 07/13/20 09:50 Ovalocytes Not Reportable 07/13/20 09:50 Helmet Cells Not Reportable 07/13/20 09:50 [place] Bodies Not Reportable 07/13/20 09:50 Tabor Rings Not Reportable 07/13/20 09:50 Demi Cells Not Reportable 07/13/20 09:50 Bite Cells Not Reportable 07/13/20 09:50 Crenated Cell Not Reportable 07/13/20 09:50 Elliptocytes Not Reportable 07/13/20 09:50 Acanthocytes (Spur) Not Reportable 07/13/20 09:50 Rouleaux Not Reportable 07/13/20 09:50 Hemoglobin C Crystals Not Reportable 07/13/20 09:50 Schistocytes Not Reportable 07/13/20 09:50 Malaria parasites Not Reportable 07/13/20 09:50 Ab Bodies Not Reportable 07/13/20 09:50 Hem Pathologist Commnt No 07/13/20 09:50 PT 14.5 Sec. (12.2-14.9) 07/07/20 05:15 INR 1.12 (0.87-1.13) 07/07/20 05:15 APTT 30.8 Sec. (24.2-36.6) 07/05/20 23:06 D-Dimer 1298.20 ng/mlDDU (0-234) H 07/05/20 23:06 ABG pH 7.434 pH Units (7.350-7.450) 07/14/20 04:05 POC ABG pCO2 50.3 mmHg (32.0-48.0) H 07/13/20 22:00 ABG pCO2 48.5 mm Hg 07/14/20 04:05 POC ABG pO2 69.1 mmHg (83-108) L 07/13/20 03:33 ABG pO2 69.1 mm Hg (80.0-90.0) L 07/14/20 04:05 POC ABG HCO3 29.0 07/13/20 22:00 ABG HCO3 31.8 mmol/L (20.0-26.0) H 07/14/20 04:05 ABG O2 Saturation 94.8 % (95.0-99.0) L 07/14/20 04:05 ABG O2 Content 15.3 (0.0-44) 07/14/20 04:05 POC ABG Base Excess 3.0 07/13/20 22:00 ABG Base Excess 6.6 mmol/L (-2.0-3.0) H 07/14/20 04:05 ABG Hemoglobin 11.7 gm/dl (12.0-16.0) L 07/14/20 04:05 ABG Carboxyhemoglobin 1.5 % (0.0-5.0) 07/14/20 04:05 ABG Methemoglobin 0.4 % (0.0-1.5) 07/14/20 04:05 ABG Sodium 137.5 mmol/L (136.0-145.0) 07/13/20 22:00 ABG Potassium 4.1 mmol/L (3.40-4.50) 07/13/20 22:00 ABG Chloride 103.0 mmol/L (98-107) 07/13/20 22:00 ABG Glucose 128 mg/dL (65-95) H 07/13/20 22:00 Oxyhemoglobin 93.0 % (95.0-99.0) L 07/14/20 04:05 FiO2 40 % 07/14/20 04:05 Sodium 141 mmol/L (137-145) 07/19/20 00:10 Potassium 3.6 mmol/L (3.6-5.0) 07/19/20 00:10 Chloride 100.5 mmol/L (98-107) 07/19/20 00:10 Carbon Dioxide 32 mmol/L (22-30) H 07/19/20 00:10 Anion Gap 12 mmol/L 07/19/20 00:10 BUN 16 mg/dL (7-17) 07/19/20 00:10 Creatinine 0.2 mg/dL (0.6-1.2) L 07/19/20 00:10 Estimated GFR > 60 ml/min 07/19/20 00:10 BUN/Creatinine Ratio 80 % 07/19/20 00:10 Glucose 161 mg/dL (65-100) H 07/19/20 00:10 POC Glucose 153 mg/dL (70-105) H 07/21/20 12:17 Lactic Acid 0.80 mmol/L (0.7-2.0) 07/05/20 23:06 Calcium 8.3 mg/dL (8.4-10.2) L 07/19/20 00:10 Magnesium 2.00 mg/dL (1.7-2.3) 07/05/20 23:06 Ferritin 60.8 ng/mL (10.0-200.0) 07/05/20 23:06 Total Bilirubin 0.30 mg/dL (0.1-1.2) 07/06/20 Unknown AST 13 units/L (5-40) 07/06/20 Unknown ALT 10 units/L (7-56) 07/06/20 Unknown Alkaline Phosphatase 71 units/L (35-129) 07/06/20 Unknown Ammonia 40.0 umol/L (25-60) 07/05/20 23:06 Lactate Dehydrogenase 217 units/L (91-180) H 07/05/20 23:06 Lactate Dehydrogenase 217 units/L (91-180) H 07/05/20 23:06 Total Creatine Kinase 55 units/L (30-135) 07/05/20 23:06 Troponin T 0.032 ng/mL (0.00-0.029) H 07/05/20 23:06 C-Reactive Protein 1.60 mg/dL (0.00-1.30) H 07/05/20 23:06 C-Reactive Protein 1.60 mg/dL (0.00-1.30) H 07/05/20 23:06 NT-Pro-B Natriuret Pep 40171 pg/mL (0-900) H 07/06/20 11:09 Total Protein 4.4 g/dL (6.3-8.2) L 07/06/20 Unknown Albumin 2.2 g/dL (3.9-5) L 07/06/20 Unknown Albumin/Globulin Ratio 1.0 % 07/06/20 Unknown Triglycerides 126 mg/dL (2-149) 07/05/20 23:06 Cholesterol 109 mg/dL (50-199) 07/05/20 23:06 LDL Cholesterol Direct 43 mg/dL (50-130) L 07/05/20 23:06 HDL Cholesterol 42 mg/dL (40-59) 07/05/20 23:06 Cholesterol/HDL Ratio 2.59 % 07/05/20 23:06 Procalcitonin < 0.05 ng/mL (<0.15) 07/05/20 23:06 TSH 15.130 mlU/mL (0.270-4.200) H 07/05/20 23:06 Free T4 0.79 ng/dL (0.76-1.46) 07/06/20 11:09 Arterial Blood Glucose 128 mg/dL (65-95) H 07/13/20 22:00 Arterial Blood Ionized Calcium 4.9 mg/dL (4.6-5.3) 07/13/20 22:00 Urine Color Mildred (Yellow) 07/05/20 Unknown Urine Turbidity Clear (Clear) 07/05/20 Unknown Urine pH 5.0 (5.0-7.0) 07/05/20 Unknown Ur Specific [place] 1.025 (1.003-1.030) 07/05/20 Unknown Urine Protein 30 mg/dl mg/dL (Negative) 07/05/20 Unknown Urine Glucose (UA) Neg mg/dL (Negative) 07/05/20 Unknown Urine Ketones Neg mg/dL (Negative) 07/05/20 Unknown Urine Blood Neg (Negative) 07/05/20 Unknown Urine Nitrite Neg (Negative) 07/05/20 Unknown Urine Bilirubin Neg (Negative) 07/05/20 Unknown Urine Urobilinogen 4.0 mg/dL (<2.0) 07/05/20 Unknown Ur Leukocyte Esterase Neg (Negative) 07/05/20 Unknown Urine WBC (Auto) 2.0 /HPF (0.0-6.0) 07/05/20 Unknown Urine RBC (Auto) 1.0 /HPF (0.0-6.0) 07/05/20 Unknown U Epithel Cells (Auto) 1.0 /HPF (0-13.0) 07/05/20 Unknown Hyaline Casts 16 /LPF 07/05/20 Unknown Urine Mucus Few /HPF 07/05/20 Unknown Salicylates < 0.3 mg/dL (2.8-20.0) L 07/05/20 23:06 Acetaminophen < 5.0 ug/mL (10.0-30.0) L 07/05/20 23:06 Plasma/Serum Alcohol < 0.01 % (0-0.07) 07/05/20 23:06 Coronavirus (PCR) Negative (Negative) 07/21/20 Unknown Blood Type O POSITIVE 07/05/20 23:10 Antibody Screen Negative 07/05/20 23:10 Roberts/IV: Voiding Method External Female Catheter IV Catheter Type [Right Upper PICC Line arm] IV Catheter Type [Right INT / Saline Lock External Jugular] IV Catheter Type [Left Triple Lumen Cath Internal Jugular] Active Medications - Current Medications Current Medications: Generic Name Dose Route Start Last Admin Trade Name Freq PRN Reason Stop Dose Admin Acetaminophen 650 mg 07/06/20 02:44 Tylenol DE Q4H PRN Pain, Mild (1-3) Acetaminophen 650 mg 07/18/20 17:16 Tylenol PO Q4H PRN Pain, Mild (1-3) Albuterol/Ipratropium 1 ampul 07/21/20 14:00 07/21/20 13:33 Duoneb *Not For Prn Use* IH 1 ampul TIDRT LUZ MARIA Administration Atorvastatin Calcium 40 mg 07/18/20 22:00 07/20/20 21:18 Lipitor PO 40 mg QHS LUZ MARIA Administration Bisacodyl 10 mg 07/06/20 02:44 Dulcolax DE QDAY PRN Constipation unrelieved by MOM Dextrose 0 ml 07/06/20 19:30 07/06/20 19:25 D50w (25gm) Syringe IV 30 ml ONCE PRN Administration Hypoglycemia Diltiazem HCl 60 mg 07/14/20 14:00 07/21/20 18:30 Cardizem PO 60 mg Q6HR LUZ MARIA Administration Famotidine 20 mg 07/09/20 10:00 07/21/20 09:26 Pepcid PO 20 mg BID LUZ MARIA Administration Hydralazine HCl 5 mg 07/06/20 02:30 Apresoline IV Q30MIN PRN Hypertension Hydrophilic Ointment 1 applic 07/05/20 22:08 Vaseline Lip Therapy TP Q2HR PRN Dry Lips Lactulose 20 gm 07/18/20 12:00 07/21/20 18:30 Cephulac PO 20 gm Q6HR LUZ MARIA Administration Magnesium Hydroxide 30 ml 07/14/20 12:06 Milk Of Magnesia PO Q4H PRN Constipation Melatonin 10 mg 07/18/20 22:00 07/20/20 21:18 Melatonin PO 10 mg QHS LUZ MARIA Administration Metoprolol Tartrate 5 mg 07/14/20 13:20 Metoprolol IV Q6HR PRN HR >120 Multi-Ingred Cream/Lotion/Oil/Oint 1 applic 07/05/20 22:08 Artificial Tears Ophth Oint OU Q4HR PRN Dry Eye(s) Ondansetron HCl 4 mg 07/06/20 02:44 07/21/20 08:11 Zofran IV 4 mg Q8H PRN Administration N/V unrelieved by Live Prednisone 40 mg 07/22/20 10:00 Deltasone PO QDAY LUZ MARIA Quetiapine Fumarate 200 mg 07/15/20 22:00 07/21/20 09:26 Seroquel PO 200 mg BID LUZ MARIA Administration Sodium Chloride 10 ml 07/06/20 10:00 07/21/20 09:26 Sodium Chloride Flush Syringe 10 Ml IV 10 ml BID LUZ MARIA Administration Sodium Chloride 10 ml 07/06/20 02:44 07/17/20 05:03 Sodium Chloride Flush Syringe 10 Ml IV 10 ml PRN PRN Administration LINE FLUSH Nutrition/Malnutrition Assess - Dietary Evaluation Nutrition/Malnutrition Findings: Nutrition Notes Start: 07/06/20 09:30 Freq: Status: Active Protocol: Document 07/21/20 11:52 CW (Rec: 07/21/20 12:51 CW [email or web address]) Co-Sign 07/21/20 11:52 LM Nutrition Notes Initial or Follow up Reassessment Current Diagnosis COPD,Heart Failure,Respiratory Failure Other Pertinent Diagnosis Acute enephalopathy, COVID-19 negative, Intracranial hemorrhage Current Diet Mechanical Soft Labs/Tests POC BG 129 Pertinent Medications Lipitor Cephulac Solu-medrol Zofran Height 5 ft Weight 78.9 kg [place] Body Weight (kg) 45.45 BMI 34.0 Weight Status Obese Subjective/Other Information Pt tolerating mechanical soft diet. Pt reports not eating because of preferences and fluctuating appetite. Observed pt drinking milk during visit . Pt preferences recorded. Percent of energy/protein needs met: 0%/0% Burn Absent Trauma Absent Food Allergy No Current % PO Negligible Minimum of two criteria No physical signs of malnutrition #1 Nutrition Diagnosis Inadequate oral intake Etiology decreased appetite As Evidenced by Signs and Symptoms diet advanced but pt consuming less than 25% of meals Diagnosis Progress(for reassessment Improved documentation) Is patient on ventilator? No Is Patient Ambulatory and/or Out of Bed Yes REE-([place]-St. Jeor-ambulatory/OOB) [ 0968.150 [id number]] Kcal/Kg value to use for calculation 18 Approximate Energy Requirements Using 1420 kcal/Kg Calculation Used for Recommendations Kcal/kg Additional Notes Protein: 0.8-1g/kg IBW: 36g- 45g Fluid: 1ml/kcal Nutrition Intervention Change Diet Order: Continue mechanical soft diet Add Supplement/Snack (indicate name/kcal Ensure Enlive daily /protein ) Provides kCal: 350 Provides Protein (gm) 20 Goal #1 Meet at least 75% of kcal and protein needs via mechanical soft diet Anticipated Discharge Needs: Unable to determine at this time Follow-Up By: 07/23/20 Additional Comments Follow for PO and ONS intakes/ tolerance
--- NOTE | 2020-07-21 21:02 | Progress Note ---
Assessment and Plan Patient awake. Patient presently resting on 3 litres O2. O2 saturation 96%. Patient not keeping O2 all the time. Advised to keep O2 all the time.Denies shortness of breath, cough or chest pain at this time. BIPAP standby in the room. Patient afebrile, No leukocytosis. Chest xray done 07/15/20 reported mild diffuse interstitial prominence with mild patchy bibasilar predominant airspace disease. ABGs done on 40% FIO2. ABG pH 7.434 pH Units (7.350-7.450) 07/14/20 04:05 POC ABG pCO2 50.3 mmHg (32.0-48.0) H 07/13/20 22:00 ABG pCO2 48.5 mm Hg 07/14/20 04:05 POC ABG pO2 69.1 mmHg (83-108) L 07/13/20 03:33 ABG pO2 69.1 mm Hg (80.0-90.0) L 07/14/20 04:05 POC ABG HCO3 29.0 07/13/20 22:00 ABG O2 Saturation 94.8 % (95.0-99.0) L 07/14/20 04:05 Patient presently on albuterol/atrovent aerosol treatments q 8 hous, prednisone and Famotidine. - Patient Problems (1) Acute respiratory failure Current Visit: Yes Status: Acute Qualifiers: Respiratory failure complication: hypoxia Qualified Code(s): J96.01 - Acute respiratory failure with hypoxia Plan to address problem: O2 3 litres via nasal canula. Albuterol/atrovent aerosol treatments q 6 hours. BIPAP stand by in the room. Continue prednisone. SCDs Continue famotidine. Antibiotics as per ID. (2) Suspected 2019 novel coronavirus infection Current Visit: Yes Status: Acute Plan to address problem: Vyas virus test reported negative. (3) Acute encephalopathy Current Visit: Yes Status: Acute Plan to address problem: Management as per primary care . (4) Intracranial hemorrhage Current Visit: Yes Status: Acute Plan to address problem: Management as per primary care and neurology. (5) Paroxysmal atrial fibrillation Current Visit: Yes Status: Acute Plan to address problem: Mangement as per primary care and cardiology. Subjective Date of service: 07/21/20 Principal diagnosis: Ac and ch hypoxic & hypercapnic resp failure; AE-COPD; Tobacco use disorder Interval history: Patient awake. Patient presently resting on 3 litres O2. O2 saturation 96%. Patient not keeping O2 all the time. Advised to keep O2 all the time.Denies shortness of breath, cough or chest pain at this time. BIPAP standby in the room. Patient afebrile, No leukocytosis. Chest xray done 07/15/20 reported mild diffuse interstitial prominence with mild patchy bibasilar predominant airspace disease. ABGs done on 40% FIO2. ABG pH 7.434 pH Units (7.350-7.450) 07/14/20 04:05 POC ABG pCO2 50.3 mmHg (32.0-48.0) H 07/13/20 22:00 ABG pCO2 48.5 mm Hg 07/14/20 04:05 POC ABG pO2 69.1 mmHg (83-108) L 07/13/20 03:33 ABG pO2 69.1 mm Hg (80.0-90.0) L 07/14/20 04:05 POC ABG HCO3 29.0 07/13/20 22:00 ABG O2 Saturation 94.8 % (95.0-99.0) L 07/14/20 04:05 Patient presently on albuterol/atrovent aerosol treatments q 8 hous, prednisone and Famotidine. Objective Vital Signs - 12hr 07/21/20 07/21/20 07/21/20 09:08 10:00 13:35 Temperature 98.1 F Pulse Rate 91 H 91 H Pulse Rate [ 93 H Bilateral Throughout] Respiratory 18 Rate Respiratory 20 Rate [Bilateral Throughout] Blood Pressure 147/78 O2 Sat by Pulse 94 Oximetry 07/21/20 07/21/20 07/21/20 13:36 19:38 20:00 Temperature 99.6 F Pulse Rate 90 Pulse Rate [ Bilateral Throughout] Respiratory 20 Rate Respiratory Rate [Bilateral Throughout] Blood Pressure 122/57 O2 Sat by Pulse 94 94 Oximetry Constitutional: no acute distress, alert Eyes: non-icteric ENT: oropharynx moist Neck: supple Effort: mildly labored Ascultation: Bilateral: diminished breath sounds, rhonchi (scant) Percussion: Bilateral: not dull Cardiovascular: regular rate and rhythm, other (sinus tach) Gastrointestinal: normoactive bowel sounds, soft, non-tender, non-distended (protuberant) Integumentary: rash Extremities: no cyanosis, pink and warm, no ischemia or petechiae, edema (bilateral upper extremity) Neurologic: non-focal exam (grossly), pupils equal and round Psychiatric: depressed CBC and BMP: 07/16/20 07:25 07/19/20 00:10 ABG, PT/INR, D-dimer: ABG ABG pH 7.434 pH Units (7.350-7.450) 07/14/20 04:05 POC ABG pCO2 50.3 mmHg (32.0-48.0) H 07/13/20 22:00 ABG pCO2 48.5 mm Hg 07/14/20 04:05 POC ABG pO2 69.1 mmHg (83-108) L 07/13/20 03:33 ABG pO2 69.1 mm Hg (80.0-90.0) L 07/14/20 04:05 POC ABG HCO3 29.0 07/13/20 22:00 ABG O2 Saturation 94.8 % (95.0-99.0) L 07/14/20 04:05 PT/INR, D-dimer PT 14.5 Sec. (12.2-14.9) 07/07/20 05:15 INR 1.12 (0.87-1.13) 07/07/20 05:15 D-Dimer 1298.20 ng/mlDDU (0-234) H 07/05/20 23:06 Abnormal lab findings: Abnormal Labs 07/05/20 07/05/20 07/05/20 22:55 23:06 23:06 Hct MCV RDW Plt Count Lymph % (Auto) [place] % (Auto) Lymph # (Auto) [place] # (Auto) Seg Neutrophils % Seg Neuts % (Manual) Lymphocytes % (Manual) Nucleated RBC % Seg Neutrophils # Lymphocytes # (Manual) PT 15.2 H INR 1.18 H D-Dimer 1298.20 H ABG pH POC ABG pCO2 POC ABG pO2 ABG pO2 227.3 H ABG HCO3 31.3 H ABG O2 Saturation 99.3 H ABG Base Excess 5.8 H ABG Hemoglobin ABG Sodium ABG Glucose Oxyhemoglobin Potassium Chloride Carbon Dioxide BUN 31 H Creatinine Glucose POC Glucose Calcium 7.7 L Lactate Dehydrogenase 217 H Troponin T 0.032 H C-Reactive Protein 1.60 H NT-Pro-B Natriuret Pep Total Protein 5.2 L Albumin 2.6 L LDL Cholesterol Direct 43 L TSH Arterial Blood Glucose Arterial Blood Ionized Calcium Salicylates Acetaminophen 07/05/20 07/05/20 07/05/20 23:06 23:06 23:06 Hct MCV RDW Plt Count Lymph % (Auto) [place] % (Auto) Lymph # (Auto) [place] # (Auto) Seg Neutrophils % Seg Neuts % (Manual) Lymphocytes % (Manual) Nucleated RBC % Seg Neutrophils # Lymphocytes # (Manual) PT INR D-Dimer ABG pH POC ABG pCO2 POC ABG pO2 ABG pO2 ABG HCO3 ABG O2 Saturation ABG Base Excess ABG Hemoglobin ABG Sodium ABG Glucose Oxyhemoglobin Potassium Chloride Carbon Dioxide BUN Creatinine Glucose POC Glucose Calcium Lactate Dehydrogenase Troponin T C-Reactive Protein NT-Pro-B Natriuret Pep Total Protein Albumin LDL Cholesterol Direct TSH 15.130 H Arterial Blood Glucose Arterial Blood Ionized Calcium Salicylates < 0.3 L Acetaminophen < 5.0 L 07/05/20 07/05/20 07/06/20 23:06 23:42 06:58 Hct MCV 98 H RDW 19.8 H Plt Count Lymph % (Auto) [place] % (Auto) 15.9 H Lymph # (Auto) 0.9 L [place] # (Auto) 1.0 H Seg Neutrophils % Seg Neuts % (Manual) Lymphocytes % (Manual) Nucleated RBC % Seg Neutrophils # Lymphocytes # (Manual) PT INR D-Dimer ABG pH 7.533 H POC ABG pCO2 20.7 L POC ABG pO2 ABG pO2 ABG HCO3 ABG O2 Saturation ABG Base Excess ABG Hemoglobin 7.6 L ABG Sodium 132.3 L ABG Glucose 55 L Oxyhemoglobin Potassium Chloride Carbon Dioxide BUN Creatinine Glucose POC Glucose Calcium Lactate Dehydrogenase 217 H Troponin T C-Reactive Protein 1.60 H NT-Pro-B Natriuret Pep Total Protein Albumin LDL Cholesterol Direct TSH Arterial Blood Glucose 55 L Arterial Blood Ionized Calcium 4.3 L Salicylates Acetaminophen 07/06/20 07/06/20 07/06/20 11:09 11:09 17:46 Hct 43.0 H MCV 100 H RDW 20.8 H Plt Count Lymph % (Auto) 7.2 L [place] % (Auto) 11.4 H Lymph # (Auto) 0.7 L [place] # (Auto) 1.1 H Seg Neutrophils % 81.3 H Seg Neuts % (Manual) Lymphocytes % (Manual) Nucleated RBC % Seg Neutrophils # 7.9 H Lymphocytes # (Manual) PT INR D-Dimer ABG pH POC ABG pCO2 POC ABG pO2 ABG pO2 ABG HCO3 ABG O2 Saturation ABG Base Excess ABG Hemoglobin ABG Sodium ABG Glucose Oxyhemoglobin Potassium Chloride Carbon Dioxide BUN Creatinine Glucose POC Glucose 43 L Calcium Lactate Dehydrogenase Troponin T C-Reactive Protein NT-Pro-B Natriuret Pep 90215 H Total Protein Albumin LDL Cholesterol Direct TSH Arterial Blood Glucose Arterial Blood Ionized Calcium Salicylates Acetaminophen 07/06/20 07/06/20 07/07/20 19:31 Unknown 04:55 Hct MCV RDW Plt Count Lymph % (Auto) [place] % (Auto) Lymph # (Auto) [place] # (Auto) Seg Neutrophils % Seg Neuts % (Manual) Lymphocytes % (Manual) Nucleated RBC % Seg Neutrophils # Lymphocytes # (Manual) PT INR D-Dimer ABG pH POC ABG pCO2 POC ABG pO2 ABG pO2 70.8 L ABG HCO3 28.9 H ABG O2 Saturation 94.5 L ABG Base Excess 3.3 H ABG Hemoglobin 11.6 L ABG Sodium ABG Glucose Oxyhemoglobin 92.7 L Potassium 3.5 L Chloride 110.4 H Carbon Dioxide BUN 19 H Creatinine 0.4 L Glucose 101 H POC Glucose < 40 L Calcium 7.2 L Lactate Dehydrogenase Troponin T C-Reactive Protein NT-Pro-B Natriuret Pep Total Protein 4.4 L Albumin 2.2 L LDL Cholesterol Direct TSH Arterial Blood Glucose Arterial Blood Ionized Calcium Salicylates Acetaminophen 07/07/20 07/07/20 07/08/20 05:15 05:15 03:20 Hct MCV 98 H RDW 19.9 H Plt Count Lymph % (Auto) [place] % (Auto) Lymph # (Auto) [place] # (Auto) Seg Neutrophils % Seg Neuts % (Manual) 76.0 H Lymphocytes % (Manual) Nucleated RBC % 1.0 H Seg Neutrophils # Lymphocytes # (Manual) PT INR D-Dimer ABG pH POC ABG pCO2 POC ABG pO2 ABG pO2 ABG HCO3 29.1 H ABG O2 Saturation ABG Base Excess 3.8 H ABG Hemoglobin ABG Sodium ABG Glucose Oxyhemoglobin Potassium Chloride Carbon Dioxide BUN Creatinine 0.5 L Glucose POC Glucose Calcium 7.6 L Lactate Dehydrogenase Troponin T C-Reactive Protein NT-Pro-B Natriuret Pep Total Protein Albumin LDL Cholesterol Direct TSH Arterial Blood Glucose Arterial Blood Ionized Calcium Salicylates Acetaminophen 07/08/20 07/09/20 07/09/20 07:31 00:02 04:05 Hct MCV RDW Plt Count Lymph % (Auto) [place] % (Auto) Lymph # (Auto) [place] # (Auto) Seg Neutrophils % Seg Neuts % (Manual) Lymphocytes % (Manual) Nucleated RBC % Seg Neutrophils # Lymphocytes # (Manual) PT INR D-Dimer ABG pH POC ABG pCO2 POC ABG pO2 63.4 L ABG pO2 ABG HCO3 ABG O2 Saturation ABG Base Excess ABG Hemoglobin 11.8 L ABG Sodium 134.1 L ABG Glucose 137 H Oxyhemoglobin Potassium Chloride 108.6 H Carbon Dioxide BUN Creatinine 0.3 L Glucose 177 H POC Glucose 118 H Calcium 7.7 L Lactate Dehydrogenase Troponin T C-Reactive Protein NT-Pro-B Natriuret Pep Total Protein Albumin LDL Cholesterol Direct TSH Arterial Blood Glucose 137 H Arterial Blood Ionized Calcium Salicylates Acetaminophen 07/09/20 07/09/20 07/09/20 05:10 12:38 17:31 Hct MCV RDW Plt Count Lymph % (Auto) [place] % (Auto) Lymph # (Auto) [place] # (Auto) Seg Neutrophils % Seg Neuts % (Manual) Lymphocytes % (Manual) Nucleated RBC % Seg Neutrophils # Lymphocytes # (Manual) PT INR D-Dimer ABG pH POC ABG pCO2 POC ABG pO2 ABG pO2 ABG HCO3 ABG O2 Saturation ABG Base Excess ABG Hemoglobin ABG Sodium ABG Glucose Oxyhemoglobin Potassium Chloride Carbon Dioxide BUN Creatinine Glucose POC Glucose 132 H 106 H 120 H Calcium Lactate Dehydrogenase Troponin T C-Reactive Protein NT-Pro-B Natriuret Pep Total Protein Albumin LDL Cholesterol Direct TSH Arterial Blood Glucose Arterial Blood Ionized Calcium Salicylates Acetaminophen 07/10/20 07/10/20 07/10/20 00:27 04:15 05:25 Hct MCV RDW Plt Count Lymph % (Auto) [place] % (Auto) Lymph # (Auto) [place] # (Auto) Seg Neutrophils % Seg Neuts % (Manual) Lymphocytes % (Manual) Nucleated RBC % Seg Neutrophils # Lymphocytes # (Manual) PT INR D-Dimer ABG pH POC ABG pCO2 POC ABG pO2 60.7 L ABG pO2 ABG HCO3 ABG O2 Saturation ABG Base Excess ABG Hemoglobin ABG Sodium ABG Glucose 149 H Oxyhemoglobin Potassium Chloride Carbon Dioxide BUN Creatinine Glucose POC Glucose 129 H 127 H Calcium Lactate Dehydrogenase Troponin T C-Reactive Protein NT-Pro-B Natriuret Pep Total Protein Albumin LDL Cholesterol Direct TSH Arterial Blood Glucose 149 H Arterial Blood Ionized Calcium Salicylates Acetaminophen 07/10/20 07/10/20 07/11/20 12:08 16:57 00:04 Hct MCV RDW Plt Count Lymph % (Auto) [place] % (Auto) Lymph # (Auto) [place] # (Auto) Seg Neutrophils % Seg Neuts % (Manual) Lymphocytes % (Manual) Nucleated RBC % Seg Neutrophils # Lymphocytes # (Manual) PT INR D-Dimer ABG pH POC ABG pCO2 POC ABG pO2 ABG pO2 ABG HCO3 ABG O2 Saturation ABG Base Excess ABG Hemoglobin ABG Sodium ABG Glucose Oxyhemoglobin Potassium Chloride Carbon Dioxide BUN Creatinine Glucose POC Glucose 129 H 152 H 127 H Calcium Lactate Dehydrogenase Troponin T C-Reactive Protein NT-Pro-B Natriuret Pep Total Protein Albumin LDL Cholesterol Direct TSH Arterial Blood Glucose Arterial Blood Ionized Calcium Salicylates Acetaminophen 07/11/20 07/11/20 07/11/20 04:56 05:29 11:47 Hct MCV RDW Plt Count Lymph % (Auto) [place] % (Auto) Lymph # (Auto) [place] # (Auto) Seg Neutrophils % Seg Neuts % (Manual) Lymphocytes % (Manual) Nucleated RBC % Seg Neutrophils # Lymphocytes # (Manual) PT INR D-Dimer ABG pH POC ABG pCO2 48.8 H POC ABG pO2 ABG pO2 ABG HCO3 ABG O2 Saturation ABG Base Excess ABG Hemoglobin ABG Sodium ABG Glucose 153 H Oxyhemoglobin Potassium Chloride Carbon Dioxide BUN Creatinine Glucose POC Glucose 127 H 155 H Calcium Lactate Dehydrogenase Troponin T C-Reactive Protein NT-Pro-B Natriuret Pep Total Protein Albumin LDL Cholesterol Direct TSH Arterial Blood Glucose 153 H Arterial Blood Ionized Calcium Salicylates Acetaminophen 07/11/20 07/12/20 07/12/20 17:12 03:18 17:42 Hct MCV RDW Plt Count Lymph % (Auto) [place] % (Auto) Lymph # (Auto) [place] # (Auto) Seg Neutrophils % Seg Neuts % (Manual) Lymphocytes % (Manual) Nucleated RBC % Seg Neutrophils # Lymphocytes # (Manual) PT INR D-Dimer ABG pH POC ABG pCO2 POC ABG pO2 71.4 L ABG pO2 ABG HCO3 ABG O2 Saturation ABG Base Excess ABG Hemoglobin ABG Sodium ABG Glucose 99 H Oxyhemoglobin Potassium Chloride Carbon Dioxide BUN Creatinine Glucose POC Glucose 118 H 112 H Calcium Lactate Dehydrogenase Troponin T C-Reactive Protein NT-Pro-B Natriuret Pep Total Protein Albumin LDL Cholesterol Direct TSH Arterial Blood Glucose 99 H Arterial Blood Ionized Calcium Salicylates Acetaminophen 07/13/20 07/13/20 07/13/20 03:33 09:50 09:50 Hct MCV RDW 17.7 H Plt Count 135 L Lymph % (Auto) [place] % (Auto) Lymph # (Auto) [place] # (Auto) Seg Neutrophils % Seg Neuts % (Manual) 96.0 H Lymphocytes % (Manual) 3.0 L Nucleated RBC % Seg Neutrophils # Lymphocytes # (Manual) 0.2 L PT INR D-Dimer ABG pH 7.462 H POC ABG pCO2 POC ABG pO2 69.1 L ABG pO2 ABG HCO3 ABG O2 Saturation ABG Base Excess ABG Hemoglobin ABG Sodium ABG Glucose 125 H Oxyhemoglobin Potassium Chloride Carbon Dioxide 33 H BUN 18 H Creatinine 0.3 L Glucose 157 H POC Glucose Calcium Lactate Dehydrogenase Troponin T C-Reactive Protein NT-Pro-B Natriuret Pep Total Protein Albumin LDL Cholesterol Direct TSH Arterial Blood Glucose 125 H Arterial Blood Ionized Calcium Salicylates Acetaminophen 07/13/20 07/13/20 07/13/20 11:52 17:32 22:00 Hct MCV RDW Plt Count Lymph % (Auto) [place] % (Auto) Lymph # (Auto) [place] # (Auto) Seg Neutrophils % Seg Neuts % (Manual) Lymphocytes % (Manual) Nucleated RBC % Seg Neutrophils # Lymphocytes # (Manual) PT INR D-Dimer ABG pH POC ABG pCO2 50.3 H POC ABG pO2 ABG pO2 ABG HCO3 ABG O2 Saturation ABG Base Excess ABG Hemoglobin 11.4 L ABG Sodium ABG Glucose 128 H Oxyhemoglobin Potassium Chloride Carbon Dioxide BUN Creatinine Glucose POC Glucose 139 H 119 H Calcium Lactate Dehydrogenase Troponin T C-Reactive Protein NT-Pro-B Natriuret Pep Total Protein Albumin LDL Cholesterol Direct TSH Arterial Blood Glucose 128 H Arterial Blood Ionized Calcium Salicylates Acetaminophen 07/14/20 07/14/20 07/14/20 04:05 11:48 23:22 Hct MCV RDW Plt Count Lymph % (Auto) [place] % (Auto) Lymph # (Auto) [place] # (Auto) Seg Neutrophils % Seg Neuts % (Manual) Lymphocytes % (Manual) Nucleated RBC % Seg Neutrophils # Lymphocytes # (Manual) PT INR D-Dimer ABG pH POC ABG pCO2 POC ABG pO2 ABG pO2 69.1 L ABG HCO3 31.8 H ABG O2 Saturation 94.8 L ABG Base Excess 6.6 H ABG Hemoglobin 11.7 L ABG Sodium ABG Glucose Oxyhemoglobin 93.0 L Potassium Chloride Carbon Dioxide BUN Creatinine Glucose POC Glucose 174 H 117 H Calcium Lactate Dehydrogenase Troponin T C-Reactive Protein NT-Pro-B Natriuret Pep Total Protein Albumin LDL Cholesterol Direct TSH Arterial Blood Glucose Arterial Blood Ionized Calcium Salicylates Acetaminophen 07/15/20 07/15/20 07/15/20 04:57 12:12 17:19 Hct MCV RDW Plt Count Lymph % (Auto) [place] % (Auto) Lymph # (Auto) [place] # (Auto) Seg Neutrophils % Seg Neuts % (Manual) Lymphocytes % (Manual) Nucleated RBC % Seg Neutrophils # Lymphocytes # (Manual) PT INR D-Dimer ABG pH POC ABG pCO2 POC ABG pO2 ABG pO2 ABG HCO3 ABG O2 Saturation ABG Base Excess ABG Hemoglobin ABG Sodium ABG Glucose Oxyhemoglobin Potassium Chloride Carbon Dioxide BUN Creatinine Glucose POC Glucose 159 H 170 H 149 H Calcium Lactate Dehydrogenase Troponin T C-Reactive Protein NT-Pro-B Natriuret Pep Total Protein Albumin LDL Cholesterol Direct TSH Arterial Blood Glucose Arterial Blood Ionized Calcium Salicylates Acetaminophen 07/15/20 07/16/20 07/16/20 23:48 05:38 07:25 Hct MCV RDW 16.6 H Plt Count 96 L Lymph % (Auto) [place] % (Auto) Lymph # (Auto) [place] # (Auto) Seg Neutrophils % Seg Neuts % (Manual) Lymphocytes % (Manual) Nucleated RBC % Seg Neutrophils # Lymphocytes # (Manual) PT INR D-Dimer ABG pH POC ABG pCO2 POC ABG pO2 ABG pO2 ABG HCO3 ABG O2 Saturation ABG Base Excess ABG Hemoglobin ABG Sodium ABG Glucose Oxyhemoglobin Potassium Chloride Carbon Dioxide BUN Creatinine Glucose POC Glucose 159 H 156 H Calcium Lactate Dehydrogenase Troponin T C-Reactive Protein NT-Pro-B Natriuret Pep Total Protein Albumin LDL Cholesterol Direct TSH Arterial Blood Glucose Arterial Blood Ionized Calcium Salicylates Acetaminophen 07/16/20 07/16/20 07/16/20 07:25 11:31 17:21 Hct MCV RDW Plt Count Lymph % (Auto) [place] % (Auto) Lymph # (Auto) [place] # (Auto) Seg Neutrophils % Seg Neuts % (Manual) Lymphocytes % (Manual) Nucleated RBC % Seg Neutrophils # Lymphocytes # (Manual) PT INR D-Dimer ABG pH POC ABG pCO2 POC ABG pO2 ABG pO2 ABG HCO3 ABG O2 Saturation ABG Base Excess ABG Hemoglobin ABG Sodium ABG Glucose Oxyhemoglobin Potassium Chloride Carbon Dioxide 35 H BUN 19 H Creatinine 0.3 L Glucose 170 H POC Glucose 150 H 130 H Calcium Lactate Dehydrogenase Troponin T C-Reactive Protein NT-Pro-B Natriuret Pep Total Protein Albumin LDL Cholesterol Direct TSH Arterial Blood Glucose Arterial Blood Ionized Calcium Salicylates Acetaminophen 07/16/20 07/17/20 07/17/20 23:35 05:58 11:53 Hct MCV RDW Plt Count Lymph % (Auto) [place] % (Auto) Lymph # (Auto) [place] # (Auto) Seg Neutrophils % Seg Neuts % (Manual) Lymphocytes % (Manual) Nucleated RBC % Seg Neutrophils # Lymphocytes # (Manual) PT INR D-Dimer ABG pH POC ABG pCO2 POC ABG pO2 ABG pO2 ABG HCO3 ABG O2 Saturation ABG Base Excess ABG Hemoglobin ABG Sodium ABG Glucose Oxyhemoglobin Potassium Chloride Carbon Dioxide BUN Creatinine Glucose POC Glucose 128 H 132 H 126 H Calcium Lactate Dehydrogenase Troponin T C-Reactive Protein NT-Pro-B Natriuret Pep Total Protein Albumin LDL Cholesterol Direct TSH Arterial Blood Glucose Arterial Blood Ionized Calcium Salicylates Acetaminophen 07/17/20 07/17/20 07/17/20 15:40 17:14 23:10 Hct MCV RDW Plt Count Lymph % (Auto) [place] % (Auto) Lymph # (Auto) [place] # (Auto) Seg Neutrophils % Seg Neuts % (Manual) Lymphocytes % (Manual) Nucleated RBC % Seg Neutrophils # Lymphocytes # (Manual) PT INR D-Dimer ABG pH POC ABG pCO2 POC ABG pO2 ABG pO2 ABG HCO3 ABG O2 Saturation ABG Base Excess ABG Hemoglobin ABG Sodium ABG Glucose Oxyhemoglobin Potassium Chloride Carbon Dioxide 34 H BUN 19 H Creatinine 0.3 L Glucose 150 H POC Glucose 126 H 120 H Calcium Lactate Dehydrogenase Troponin T C-Reactive Protein NT-Pro-B Natriuret Pep Total Protein Albumin LDL Cholesterol Direct TSH Arterial Blood Glucose Arterial Blood Ionized Calcium Salicylates Acetaminophen 07/18/20 07/18/20 07/18/20 05:31 11:56 18:11 Hct MCV RDW Plt Count Lymph % (Auto) [place] % (Auto) Lymph # (Auto) [place] # (Auto) Seg Neutrophils % Seg Neuts % (Manual) Lymphocytes % (Manual) Nucleated RBC % Seg Neutrophils # Lymphocytes # (Manual) PT INR D-Dimer ABG pH POC ABG pCO2 POC ABG pO2 ABG pO2 ABG HCO3 ABG O2 Saturation ABG Base Excess ABG Hemoglobin ABG Sodium ABG Glucose Oxyhemoglobin Potassium Chloride Carbon Dioxide BUN Creatinine Glucose POC Glucose 122 H 114 H 140 H Calcium Lactate Dehydrogenase Troponin T C-Reactive Protein NT-Pro-B Natriuret Pep Total Protein Albumin LDL Cholesterol Direct TSH Arterial Blood Glucose Arterial Blood Ionized Calcium Salicylates Acetaminophen 07/19/20 07/19/20 07/19/20 00:10 08:13 11:43 Hct MCV RDW Plt Count Lymph % (Auto) [place] % (Auto) Lymph # (Auto) [place] # (Auto) Seg Neutrophils % Seg Neuts % (Manual) Lymphocytes % (Manual) Nucleated RBC % Seg Neutrophils # Lymphocytes # (Manual) PT INR D-Dimer ABG pH POC ABG pCO2 POC ABG pO2 ABG pO2 ABG HCO3 ABG O2 Saturation ABG Base Excess ABG Hemoglobin ABG Sodium ABG Glucose Oxyhemoglobin Potassium Chloride Carbon Dioxide 32 H BUN Creatinine 0.2 L Glucose 161 H POC Glucose 171 H 182 H Calcium 8.3 L Lactate Dehydrogenase Troponin T C-Reactive Protein NT-Pro-B Natriuret Pep Total Protein Albumin LDL Cholesterol Direct TSH Arterial Blood Glucose Arterial Blood Ionized Calcium Salicylates Acetaminophen 07/19/20 07/19/20 07/20/20 16:44 23:24 05:21 Hct MCV RDW Plt Count Lymph % (Auto) [place] % (Auto) Lymph # (Auto) [place] # (Auto) Seg Neutrophils % Seg Neuts % (Manual) Lymphocytes % (Manual) Nucleated RBC % Seg Neutrophils # Lymphocytes # (Manual) PT INR D-Dimer ABG pH POC ABG pCO2 POC ABG pO2 ABG pO2 ABG HCO3 ABG O2 Saturation ABG Base Excess ABG Hemoglobin ABG Sodium ABG Glucose Oxyhemoglobin Potassium Chloride Carbon Dioxide BUN Creatinine Glucose POC Glucose 146 H 170 H 124 H Calcium Lactate Dehydrogenase Troponin T C-Reactive Protein NT-Pro-B Natriuret Pep Total Protein Albumin LDL Cholesterol Direct TSH Arterial Blood Glucose Arterial Blood Ionized Calcium Salicylates Acetaminophen 07/20/20 07/20/20 07/20/20 11:54 16:22 23:24 Hct MCV RDW Plt Count Lymph % (Auto) [place] % (Auto) Lymph # (Auto) [place] # (Auto) Seg Neutrophils % Seg Neuts % (Manual) Lymphocytes % (Manual) Nucleated RBC % Seg Neutrophils # Lymphocytes # (Manual) PT INR D-Dimer ABG pH POC ABG pCO2 POC ABG pO2 ABG pO2 ABG HCO3 ABG O2 Saturation ABG Base Excess ABG Hemoglobin ABG Sodium ABG Glucose Oxyhemoglobin Potassium Chloride Carbon Dioxide BUN Creatinine Glucose POC Glucose 160 H 128 H 124 H Calcium Lactate Dehydrogenase Troponin T C-Reactive Protein NT-Pro-B Natriuret Pep Total Protein Albumin LDL Cholesterol Direct TSH Arterial Blood Glucose Arterial Blood Ionized Calcium Salicylates Acetaminophen 07/21/20 07/21/20 04:59 12:17 Hct MCV RDW Plt Count Lymph % (Auto) [place] % (Auto) Lymph # (Auto) [place] # (Auto) Seg Neutrophils % Seg Neuts % (Manual) Lymphocytes % (Manual) Nucleated RBC % Seg Neutrophils # Lymphocytes # (Manual) PT INR D-Dimer ABG pH POC ABG pCO2 POC ABG pO2 ABG pO2 ABG HCO3 ABG O2 Saturation ABG Base Excess ABG Hemoglobin ABG Sodium ABG Glucose Oxyhemoglobin Potassium Chloride Carbon Dioxide BUN Creatinine Glucose POC Glucose 129 H 153 H Calcium Lactate Dehydrogenase Troponin T C-Reactive Protein NT-Pro-B Natriuret Pep Total Protein Albumin LDL Cholesterol Direct TSH Arterial Blood Glucose Arterial Blood Ionized Calcium Salicylates Acetaminophen Allied health notes reviewed: RT
[2020-07-21] MEDS: MELATONIN 5 MG TAB PO SCH (21:48)
[2020-07-21] MEDS: FUROSEMIDE 40 MG/4 ML INJ IV SCH (23:08)
[2020-07-22] MEDS: LACTULOSE 20 GM/30 ML ORAL LIQD PO SCH ×2 (00:29→07:00)
[2020-07-22] MEDS: dilTIAZem 60 MG TAB PO SCH ×2 (00:29→06:59)
[2020-07-22] MEDS: FUROSEMIDE 40 MG/4 ML INJ IV SCH (07:00)
[2020-07-22 07:40] VITALS: BP 148/75
[2020-07-22] MEDS: IPRATROPIUM/ALBUTEROL SULFATE 3 ML AMPUL.NEB IH SCH ×2 (09:30→13:48)
[2020-07-22] MEDS: FAMOTIDINE 20 MG TAB PO SCH (09:40)
[2020-07-22] MEDS: QUEtiapine 200 MG TAB PO SCH (09:41)
[2020-07-22] MEDS ORDERED: predniSONE 20 MG TAB PO SCH (10:00)
--- NOTE | 2020-07-22 10:07 | Progress Note ---
<JEANNINE ABEL - Last Filed: 07/22/20 10:06> Assessment and Plan Hx of Paroxysmal Atrial flutter/afib/MAT not on anticoagulation secondary to history of melena and anemia. 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 She did undergo PCI of the mid LAD using bare metal stent. Altered mental status -reason for admission initial head CT scan showed small 1 cm parenchymal hemorrhage in the left par ietal juxtacortical region. Chest CTA negative for PE Respiratory failure negative for COVID 19 COPD on home oxygen Hypothyroidism TSH at 15.1 Recommend: Continue medical therapy for underlying coronary artery disease and paroxysmal atrial fibrillation. Patient was previously considered not a candidate for oral anticoagulation. Otherwise, conservative cardiac management. Subjective Date of service: 07/22/20 Principal diagnosis: Ac and ch hypoxic & hypercapnic resp failure; AE-COPD; Tobacco use disorder Interval history: Patient has no cardiac complaints. No distress noted. Sinus rhythm on telemetry. Objective Vital Signs Temp Pulse Pulse Pulse Pulse Resp Resp 07/22/20 09:30 07/22/20 07:38 98.4 F 82 18 07/22/20 06:59 77 07/22/20 05:10 07/22/20 05:01 98.6 F 77 20 07/22/20 00:29 80 07/21/20 23:42 98.3 F 20 07/21/20 22:10 90 88 16 07/21/20 22:00 07/21/20 20:00 90 07/21/20 19:38 99.6 F 20 07/21/20 13:36 07/21/20 13:35 93 H 20 BP BP Pulse Ox 07/22/20 09:30 96 07/22/20 07:38 148/75 92 07/22/20 06:59 126/60 07/22/20 05:10 126/60 07/22/20 05:01 95 07/22/20 00:29 141/65 07/21/20 23:42 141/65 07/21/20 22:10 94 07/21/20 22:00 96 07/21/20 20:00 94 07/21/20 19:38 122/57 07/21/20 13:36 94 07/21/20 13:35 - Physical Examination General: No Apparent Distress HEENT: Positive: PERRL Neck: Positive: neck supple Cardiac: Positive: Reg Rate and Rhythm Neuro: Positive: Weakness Abdomen: Positive: Soft Extremities: Absent: edema - Allied health notes Allied health notes reviewed: RT <LARS PEREZ - Last Filed: 07/25/20 09:12> Subjective Interval history: I SAW THIS PT & AGREE WITH THE Dx & Tx PLAN
--- NOTE | 2020-07-22 13:26 | Progress Note ---
Assessment and Plan Acute and chronic hypoxic and hypercapnic respiratory failure: Acute exacerbation of COPD Tobacco use disorder/Nicotine dependence (on going) Hypernatremia History of coronary artery disease/CHF History of HTN Chronic narcotic dependence Chronic back pain Anxiety disorder History of depression; Obesity; BMI 32.2 - continue to wean FiO2 for target O2 sat's > 90% - no new issues otherwise, continue other care as below - continue contact isolation - continue systemic steroids with slow taper - AB's per ID rec's (S/P Vanc & Cefepime) - continue supplemental oxygen with restrictive strategies acutely re: severe COPD (PaO2 of 60 with O2 sats 88-90% is acceptable) - aspiration precautions; HOB > 40 degrees - continue bronchodilators with pulmonary hygiene per RT - Avoid benzodiazepine's, reduce the possibility of delirium - Maintenance of sleep-wake cycle, avoid delirium - Accuchecks with glycemic control per SSI for target blood glucose of < 180 mg/dL; avoid hypoglycemia - VTE prophylaxis - Stress ulcer prophylaxis - Monitor hemodynamics closely - Nicotine withdrawal precautions, nicotine patch - In view of ongoing smoking, recurrent hospital admission, will need to re- address advance directives and goals of care, once the patient is able to be a part of that discussion. Will also address smoking cessation again, once she is able to be a part of that discussion - discharge planning ongoing concurrently - continue other care per attending / other moving consultant's .... re-evaluate in am & prn CONDITION: FAIR PROGNOSIS: GUARDED CODE STATUS: FULL CODE Subjective Date of service: 07/22/20 Principal diagnosis: Ac and ch hypoxic & hypercapnic resp failure; AE-COPD; Tobacco use disorder Interval history: Patient is seen today for: Ac and ch hypoxic hypercapnic resp failure; AE-COPD; Tobacco use disorder/Nicotine dependence; Hypernatremia; HTN (hypotensive at presentation; Chronic narcotic dependence ; Chronic back pain; Anxiety disorder Seen and examined at bedside; 24-hour events reviewed; nursing and respiratory care staff consulted; no adverse overnight events reported to me; laying in bed; Objective Vital Signs - 12hr 07/22/20 07/22/20 07/22/20 05:01 05:10 06:59 Temperature 98.6 F Pulse Rate 77 77 Respiratory 20 Rate Blood Pressure 126/60 Blood Pressure 126/60 [Left] O2 Sat by Pulse 95 Oximetry 07/22/20 07/22/20 07:38 09:30 Temperature 98.4 F Pulse Rate 82 Respiratory 18 Rate Blood Pressure 148/75 Blood Pressure [Left] O2 Sat by Pulse 92 96 Oximetry Constitutional: no acute distress, alert Eyes: non-icteric ENT: oropharynx moist Neck: supple Effort: mildly labored Ascultation: Bilateral: clear, diminished breath sounds, rhonchi (scant) Percussion: Bilateral: not dull Cardiovascular: regular rate and rhythm, other (sinus tach) Gastrointestinal: normoactive bowel sounds, soft, non-tender, non-distended (protuberant) Integumentary: rash Extremities: no cyanosis, pink and warm, no ischemia or petechiae, edema (bilateral upper extremity) Neurologic: non-focal exam (grossly), pupils equal and round Psychiatric: depressed CBC and BMP: 07/16/20 07:25 07/19/20 00:10 ABG, PT/INR, D-dimer: ABG ABG pH 7.434 pH Units (7.350-7.450) 07/14/20 04:05 POC ABG pCO2 50.3 mmHg (32.0-48.0) H 07/13/20 22:00 ABG pCO2 48.5 mm Hg 07/14/20 04:05 POC ABG pO2 69.1 mmHg (83-108) L 07/13/20 03:33 ABG pO2 69.1 mm Hg (80.0-90.0) L 07/14/20 04:05 POC ABG HCO3 29.0 07/13/20 22:00 ABG O2 Saturation 94.8 % (95.0-99.0) L 07/14/20 04:05 PT/INR, D-dimer PT 14.5 Sec. (12.2-14.9) 07/07/20 05:15 INR 1.12 (0.87-1.13) 07/07/20 05:15 D-Dimer 1298.20 ng/mlDDU (0-234) H 07/05/20 23:06 Abnormal lab findings: Abnormal Labs 07/05/20 07/05/20 07/05/20 22:55 23:06 23:06 Hct MCV RDW Plt Count Lymph % (Auto) Rhea % (Auto) Lymph # (Auto) Rhea # (Auto) Seg Neutrophils % Seg Neuts % (Manual) Lymphocytes % (Manual) Nucleated RBC % Seg Neutrophils # Lymphocytes # (Manual) PT 15.2 H INR 1.18 H D-Dimer 1298.20 H ABG pH POC ABG pCO2 POC ABG pO2 ABG pO2 227.3 H ABG HCO3 31.3 H ABG O2 Saturation 99.3 H ABG Base Excess 5.8 H ABG Hemoglobin ABG Sodium ABG Glucose Oxyhemoglobin Potassium Chloride Carbon Dioxide BUN 31 H Creatinine Glucose POC Glucose Calcium 7.7 L Lactate Dehydrogenase 217 H Troponin T 0.032 H C-Reactive Protein 1.60 H NT-Pro-B Natriuret Pep Total Protein 5.2 L Albumin 2.6 L LDL Cholesterol Direct 43 L TSH Arterial Blood Glucose Arterial Blood Ionized Calcium Salicylates Acetaminophen 07/05/20 07/05/20 07/05/20 23:06 23:06 23:06 Hct MCV RDW Plt Count Lymph % (Auto) Rhea % (Auto) Lymph # (Auto) Rhea # (Auto) Seg Neutrophils % Seg Neuts % (Manual) Lymphocytes % (Manual) Nucleated RBC % Seg Neutrophils # Lymphocytes # (Manual) PT INR D-Dimer ABG pH POC ABG pCO2 POC ABG pO2 ABG pO2 ABG HCO3 ABG O2 Saturation ABG Base Excess ABG Hemoglobin ABG Sodium ABG Glucose Oxyhemoglobin Potassium Chloride Carbon Dioxide BUN Creatinine Glucose POC Glucose Calcium Lactate Dehydrogenase Troponin T C-Reactive Protein NT-Pro-B Natriuret Pep Total Protein Albumin LDL Cholesterol Direct TSH 15.130 H Arterial Blood Glucose Arterial Blood Ionized Calcium Salicylates < 0.3 L Acetaminophen < 5.0 L 07/05/20 07/05/20 07/06/20 23:06 23:42 06:58 Hct MCV 98 H RDW 19.8 H Plt Count Lymph % (Auto) Rhea % (Auto) 15.9 H Lymph # (Auto) 0.9 L Rhea # (Auto) 1.0 H Seg Neutrophils % Seg Neuts % (Manual) Lymphocytes % (Manual) Nucleated RBC % Seg Neutrophils # Lymphocytes # (Manual) PT INR D-Dimer ABG pH 7.533 H POC ABG pCO2 20.7 L POC ABG pO2 ABG pO2 ABG HCO3 ABG O2 Saturation ABG Base Excess ABG Hemoglobin 7.6 L ABG Sodium 132.3 L ABG Glucose 55 L Oxyhemoglobin Potassium Chloride Carbon Dioxide BUN Creatinine Glucose POC Glucose Calcium Lactate Dehydrogenase 217 H Troponin T C-Reactive Protein 1.60 H NT-Pro-B Natriuret Pep Total Protein Albumin LDL Cholesterol Direct TSH Arterial Blood Glucose 55 L Arterial Blood Ionized Calcium 4.3 L Salicylates Acetaminophen 07/06/20 07/06/20 07/06/20 11:09 11:09 17:46 Hct 43.0 H MCV 100 H RDW 20.8 H Plt Count Lymph % (Auto) 7.2 L Rhea % (Auto) 11.4 H Lymph # (Auto) 0.7 L Rhea # (Auto) 1.1 H Seg Neutrophils % 81.3 H Seg Neuts % (Manual) Lymphocytes % (Manual) Nucleated RBC % Seg Neutrophils # 7.9 H Lymphocytes # (Manual) PT INR D-Dimer ABG pH POC ABG pCO2 POC ABG pO2 ABG pO2 ABG HCO3 ABG O2 Saturation ABG Base Excess ABG Hemoglobin ABG Sodium ABG Glucose Oxyhemoglobin Potassium Chloride Carbon Dioxide BUN Creatinine Glucose POC Glucose 43 L Calcium Lactate Dehydrogenase Troponin T C-Reactive Protein NT-Pro-B Natriuret Pep 34162 H Total Protein Albumin LDL Cholesterol Direct TSH Arterial Blood Glucose Arterial Blood Ionized Calcium Salicylates Acetaminophen 07/06/20 07/06/20 07/07/20 19:31 Unknown 04:55 Hct MCV RDW Plt Count Lymph % (Auto) Rhea % (Auto) Lymph # (Auto) Rhea # (Auto) Seg Neutrophils % Seg Neuts % (Manual) Lymphocytes % (Manual) Nucleated RBC % Seg Neutrophils # Lymphocytes # (Manual) PT INR D-Dimer ABG pH POC ABG pCO2 POC ABG pO2 ABG pO2 70.8 L ABG HCO3 28.9 H ABG O2 Saturation 94.5 L ABG Base Excess 3.3 H ABG Hemoglobin 11.6 L ABG Sodium ABG Glucose Oxyhemoglobin 92.7 L Potassium 3.5 L Chloride 110.4 H Carbon Dioxide BUN 19 H Creatinine 0.4 L Glucose 101 H POC Glucose < 40 L Calcium 7.2 L Lactate Dehydrogenase Troponin T C-Reactive Protein NT-Pro-B Natriuret Pep Total Protein 4.4 L Albumin 2.2 L LDL Cholesterol Direct TSH Arterial Blood Glucose Arterial Blood Ionized Calcium Salicylates Acetaminophen 07/07/20 07/07/20 07/08/20 05:15 05:15 03:20 Hct MCV 98 H RDW 19.9 H Plt Count Lymph % (Auto) Rhea % (Auto) Lymph # (Auto) Rhea # (Auto) Seg Neutrophils % Seg Neuts % (Manual) 76.0 H Lymphocytes % (Manual) Nucleated RBC % 1.0 H Seg Neutrophils # Lymphocytes # (Manual) PT INR D-Dimer ABG pH POC ABG pCO2 POC ABG pO2 ABG pO2 ABG HCO3 29.1 H ABG O2 Saturation ABG Base Excess 3.8 H ABG Hemoglobin ABG Sodium ABG Glucose Oxyhemoglobin Potassium Chloride Carbon Dioxide BUN Creatinine 0.5 L Glucose POC Glucose Calcium 7.6 L Lactate Dehydrogenase Troponin T C-Reactive Protein NT-Pro-B Natriuret Pep Total Protein Albumin LDL Cholesterol Direct TSH Arterial Blood Glucose Arterial Blood Ionized Calcium Salicylates Acetaminophen 07/08/20 07/09/20 07/09/20 07:31 00:02 04:05 Hct MCV RDW Plt Count Lymph % (Auto) Rhea % (Auto) Lymph # (Auto) Rhea # (Auto) Seg Neutrophils % Seg Neuts % (Manual) Lymphocytes % (Manual) Nucleated RBC % Seg Neutrophils # Lymphocytes # (Manual) PT INR D-Dimer ABG pH POC ABG pCO2 POC ABG pO2 63.4 L ABG pO2 ABG HCO3 ABG O2 Saturation ABG Base Excess ABG Hemoglobin 11.8 L ABG Sodium 134.1 L ABG Glucose 137 H Oxyhemoglobin Potassium Chloride 108.6 H Carbon Dioxide BUN Creatinine 0.3 L Glucose 177 H POC Glucose 118 H Calcium 7.7 L Lactate Dehydrogenase Troponin T C-Reactive Protein NT-Pro-B Natriuret Pep Total Protein Albumin LDL Cholesterol Direct TSH Arterial Blood Glucose 137 H Arterial Blood Ionized Calcium Salicylates Acetaminophen 07/09/20 07/09/20 07/09/20 05:10 12:38 17:31 Hct MCV RDW Plt Count Lymph % (Auto) Rhea % (Auto) Lymph # (Auto) Rhea # (Auto) Seg Neutrophils % Seg Neuts % (Manual) Lymphocytes % (Manual) Nucleated RBC % Seg Neutrophils # Lymphocytes # (Manual) PT INR D-Dimer ABG pH POC ABG pCO2 POC ABG pO2 ABG pO2 ABG HCO3 ABG O2 Saturation ABG Base Excess ABG Hemoglobin ABG Sodium ABG Glucose Oxyhemoglobin Potassium Chloride Carbon Dioxide BUN Creatinine Glucose POC Glucose 132 H 106 H 120 H Calcium Lactate Dehydrogenase Troponin T C-Reactive Protein NT-Pro-B Natriuret Pep Total Protein Albumin LDL Cholesterol Direct TSH Arterial Blood Glucose Arterial Blood Ionized Calcium Salicylates Acetaminophen 07/10/20 07/10/20 07/10/20 00:27 04:15 05:25 Hct MCV RDW Plt Count Lymph % (Auto) Rhea % (Auto) Lymph # (Auto) Rhea # (Auto) Seg Neutrophils % Seg Neuts % (Manual) Lymphocytes % (Manual) Nucleated RBC % Seg Neutrophils # Lymphocytes # (Manual) PT INR D-Dimer ABG pH POC ABG pCO2 POC ABG pO2 60.7 L ABG pO2 ABG HCO3 ABG O2 Saturation ABG Base Excess ABG Hemoglobin ABG Sodium ABG Glucose 149 H Oxyhemoglobin Potassium Chloride Carbon Dioxide BUN Creatinine Glucose POC Glucose 129 H 127 H Calcium Lactate Dehydrogenase Troponin T C-Reactive Protein NT-Pro-B Natriuret Pep Total Protein Albumin LDL Cholesterol Direct TSH Arterial Blood Glucose 149 H Arterial Blood Ionized Calcium Salicylates Acetaminophen 07/10/20 07/10/20 07/11/20 12:08 16:57 00:04 Hct MCV RDW Plt Count Lymph % (Auto) Rhea % (Auto) Lymph # (Auto) Rhea # (Auto) Seg Neutrophils % Seg Neuts % (Manual) Lymphocytes % (Manual) Nucleated RBC % Seg Neutrophils # Lymphocytes # (Manual) PT INR D-Dimer ABG pH POC ABG pCO2 POC ABG pO2 ABG pO2 ABG HCO3 ABG O2 Saturation ABG Base Excess ABG Hemoglobin ABG Sodium ABG Glucose Oxyhemoglobin Potassium Chloride Carbon Dioxide BUN Creatinine Glucose POC Glucose 129 H 152 H 127 H Calcium Lactate Dehydrogenase Troponin T C-Reactive Protein NT-Pro-B Natriuret Pep Total Protein Albumin LDL Cholesterol Direct TSH Arterial Blood Glucose Arterial Blood Ionized Calcium Salicylates Acetaminophen 07/11/20 07/11/20 07/11/20 04:56 05:29 11:47 Hct MCV RDW Plt Count Lymph % (Auto) Rhea % (Auto) Lymph # (Auto) Rhea # (Auto) Seg Neutrophils % Seg Neuts % (Manual) Lymphocytes % (Manual) Nucleated RBC % Seg Neutrophils # Lymphocytes # (Manual) PT INR D-Dimer ABG pH POC ABG pCO2 48.8 H POC ABG pO2 ABG pO2 ABG HCO3 ABG O2 Saturation ABG Base Excess ABG Hemoglobin ABG Sodium ABG Glucose 153 H Oxyhemoglobin Potassium Chloride Carbon Dioxide BUN Creatinine Glucose POC Glucose 127 H 155 H Calcium Lactate Dehydrogenase Troponin T C-Reactive Protein NT-Pro-B Natriuret Pep Total Protein Albumin LDL Cholesterol Direct TSH Arterial Blood Glucose 153 H Arterial Blood Ionized Calcium Salicylates Acetaminophen 07/11/20 07/12/20 07/12/20 17:12 03:18 17:42 Hct MCV RDW Plt Count Lymph % (Auto) Rhea % (Auto) Lymph # (Auto) Rhea # (Auto) Seg Neutrophils % Seg Neuts % (Manual) Lymphocytes % (Manual) Nucleated RBC % Seg Neutrophils # Lymphocytes # (Manual) PT INR D-Dimer ABG pH POC ABG pCO2 POC ABG pO2 71.4 L ABG pO2 ABG HCO3 ABG O2 Saturation ABG Base Excess ABG Hemoglobin ABG Sodium ABG Glucose 99 H Oxyhemoglobin Potassium Chloride Carbon Dioxide BUN Creatinine Glucose POC Glucose 118 H 112 H Calcium Lactate Dehydrogenase Troponin T C-Reactive Protein NT-Pro-B Natriuret Pep Total Protein Albumin LDL Cholesterol Direct TSH Arterial Blood Glucose 99 H Arterial Blood Ionized Calcium Salicylates Acetaminophen 07/13/20 07/13/20 07/13/20 03:33 09:50 09:50 Hct MCV RDW 17.7 H Plt Count 135 L Lymph % (Auto) Rhea % (Auto) Lymph # (Auto) Rhea # (Auto) Seg Neutrophils % Seg Neuts % (Manual) 96.0 H Lymphocytes % (Manual) 3.0 L Nucleated RBC % Seg Neutrophils # Lymphocytes # (Manual) 0.2 L PT INR D-Dimer ABG pH 7.462 H POC ABG pCO2 POC ABG pO2 69.1 L ABG pO2 ABG HCO3 ABG O2 Saturation ABG Base Excess ABG Hemoglobin ABG Sodium ABG Glucose 125 H Oxyhemoglobin Potassium Chloride Carbon Dioxide 33 H BUN 18 H Creatinine 0.3 L Glucose 157 H POC Glucose Calcium Lactate Dehydrogenase Troponin T C-Reactive Protein NT-Pro-B Natriuret Pep Total Protein Albumin LDL Cholesterol Direct TSH Arterial Blood Glucose 125 H Arterial Blood Ionized Calcium Salicylates Acetaminophen 07/13/20 07/13/20 07/13/20 11:52 17:32 22:00 Hct MCV RDW Plt Count Lymph % (Auto) Rhea % (Auto) Lymph # (Auto) Rhea # (Auto) Seg Neutrophils % Seg Neuts % (Manual) Lymphocytes % (Manual) Nucleated RBC % Seg Neutrophils # Lymphocytes # (Manual) PT INR D-Dimer ABG pH POC ABG pCO2 50.3 H POC ABG pO2 ABG pO2 ABG HCO3 ABG O2 Saturation ABG Base Excess ABG Hemoglobin 11.4 L ABG Sodium ABG Glucose 128 H Oxyhemoglobin Potassium Chloride Carbon Dioxide BUN Creatinine Glucose POC Glucose 139 H 119 H Calcium Lactate Dehydrogenase Troponin T C-Reactive Protein NT-Pro-B Natriuret Pep Total Protein Albumin LDL Cholesterol Direct TSH Arterial Blood Glucose 128 H Arterial Blood Ionized Calcium Salicylates Acetaminophen 07/14/20 07/14/20 07/14/20 04:05 11:48 23:22 Hct MCV RDW Plt Count Lymph % (Auto) Rhea % (Auto) Lymph # (Auto) Rhea # (Auto) Seg Neutrophils % Seg Neuts % (Manual) Lymphocytes % (Manual) Nucleated RBC % Seg Neutrophils # Lymphocytes # (Manual) PT INR D-Dimer ABG pH POC ABG pCO2 POC ABG pO2 ABG pO2 69.1 L ABG HCO3 31.8 H ABG O2 Saturation 94.8 L ABG Base Excess 6.6 H ABG Hemoglobin 11.7 L ABG Sodium ABG Glucose Oxyhemoglobin 93.0 L Potassium Chloride Carbon Dioxide BUN Creatinine Glucose POC Glucose 174 H 117 H Calcium Lactate Dehydrogenase Troponin T C-Reactive Protein NT-Pro-B Natriuret Pep Total Protein Albumin LDL Cholesterol Direct TSH Arterial Blood Glucose Arterial Blood Ionized Calcium Salicylates Acetaminophen 07/15/20 07/15/20 07/15/20 04:57 12:12 17:19 Hct MCV RDW Plt Count Lymph % (Auto) Rhea % (Auto) Lymph # (Auto) Rhea # (Auto) Seg Neutrophils % Seg Neuts % (Manual) Lymphocytes % (Manual) Nucleated RBC % Seg Neutrophils # Lymphocytes # (Manual) PT INR D-Dimer ABG pH POC ABG pCO2 POC ABG pO2 ABG pO2 ABG HCO3 ABG O2 Saturation ABG Base Excess ABG Hemoglobin ABG Sodium ABG Glucose Oxyhemoglobin Potassium Chloride Carbon Dioxide BUN Creatinine Glucose POC Glucose 159 H 170 H 149 H Calcium Lactate Dehydrogenase Troponin T C-Reactive Protein NT-Pro-B Natriuret Pep Total Protein Albumin LDL Cholesterol Direct TSH Arterial Blood Glucose Arterial Blood Ionized Calcium Salicylates Acetaminophen 07/15/20 07/16/20 07/16/20 23:48 05:38 07:25 Hct MCV RDW 16.6 H Plt Count 96 L Lymph % (Auto) Rhea % (Auto) Lymph # (Auto) Rhea # (Auto) Seg Neutrophils % Seg Neuts % (Manual) Lymphocytes % (Manual) Nucleated RBC % Seg Neutrophils # Lymphocytes # (Manual) PT INR D-Dimer ABG pH POC ABG pCO2 POC ABG pO2 ABG pO2 ABG HCO3 ABG O2 Saturation ABG Base Excess ABG Hemoglobin ABG Sodium ABG Glucose Oxyhemoglobin Potassium Chloride Carbon Dioxide BUN Creatinine Glucose POC Glucose 159 H 156 H Calcium Lactate Dehydrogenase Troponin T C-Reactive Protein NT-Pro-B Natriuret Pep Total Protein Albumin LDL Cholesterol Direct TSH Arterial Blood Glucose Arterial Blood Ionized Calcium Salicylates Acetaminophen 07/16/20 07/16/20 07/16/20 07:25 11:31 17:21 Hct MCV RDW Plt Count Lymph % (Auto) Rhea % (Auto) Lymph # (Auto) Rhea # (Auto) Seg Neutrophils % Seg Neuts % (Manual) Lymphocytes % (Manual) Nucleated RBC % Seg Neutrophils # Lymphocytes # (Manual) PT INR D-Dimer ABG pH POC ABG pCO2 POC ABG pO2 ABG pO2 ABG HCO3 ABG O2 Saturation ABG Base Excess ABG Hemoglobin ABG Sodium ABG Glucose Oxyhemoglobin Potassium Chloride Carbon Dioxide 35 H BUN 19 H Creatinine 0.3 L Glucose 170 H POC Glucose 150 H 130 H Calcium Lactate Dehydrogenase Troponin T C-Reactive Protein NT-Pro-B Natriuret Pep Total Protein Albumin LDL Cholesterol Direct TSH Arterial Blood Glucose Arterial Blood Ionized Calcium Salicylates Acetaminophen 07/16/20 07/17/20 07/17/20 23:35 05:58 11:53 Hct MCV RDW Plt Count Lymph % (Auto) Rhea % (Auto) Lymph # (Auto) Rhea # (Auto) Seg Neutrophils % Seg Neuts % (Manual) Lymphocytes % (Manual) Nucleated RBC % Seg Neutrophils # Lymphocytes # (Manual) PT INR D-Dimer ABG pH POC ABG pCO2 POC ABG pO2 ABG pO2 ABG HCO3 ABG O2 Saturation ABG Base Excess ABG Hemoglobin ABG Sodium ABG Glucose Oxyhemoglobin Potassium Chloride Carbon Dioxide BUN Creatinine Glucose POC Glucose 128 H 132 H 126 H Calcium Lactate Dehydrogenase Troponin T C-Reactive Protein NT-Pro-B Natriuret Pep Total Protein Albumin LDL Cholesterol Direct TSH Arterial Blood Glucose Arterial Blood Ionized Calcium Salicylates Acetaminophen 07/17/20 07/17/20 07/17/20 15:40 17:14 23:10 Hct MCV RDW Plt Count Lymph % (Auto) Rhea % (Auto) Lymph # (Auto) Rhea # (Auto) Seg Neutrophils % Seg Neuts % (Manual) Lymphocytes % (Manual) Nucleated RBC % Seg Neutrophils # Lymphocytes # (Manual) PT INR D-Dimer ABG pH POC ABG pCO2 POC ABG pO2 ABG pO2 ABG HCO3 ABG O2 Saturation ABG Base Excess ABG Hemoglobin ABG Sodium ABG Glucose Oxyhemoglobin Potassium Chloride Carbon Dioxide 34 H BUN 19 H Creatinine 0.3 L Glucose 150 H POC Glucose 126 H 120 H Calcium Lactate Dehydrogenase Troponin T C-Reactive Protein NT-Pro-B Natriuret Pep Total Protein Albumin LDL Cholesterol Direct TSH Arterial Blood Glucose Arterial Blood Ionized Calcium Salicylates Acetaminophen 07/18/20 07/18/20 07/18/20 05:31 11:56 18:11 Hct MCV RDW Plt Count Lymph % (Auto) Rhea % (Auto) Lymph # (Auto) Rhea # (Auto) Seg Neutrophils % Seg Neuts % (Manual) Lymphocytes % (Manual) Nucleated RBC % Seg Neutrophils # Lymphocytes # (Manual) PT INR D-Dimer ABG pH POC ABG pCO2 POC ABG pO2 ABG pO2 ABG HCO3 ABG O2 Saturation ABG Base Excess ABG Hemoglobin ABG Sodium ABG Glucose Oxyhemoglobin Potassium Chloride Carbon Dioxide BUN Creatinine Glucose POC Glucose 122 H 114 H 140 H Calcium Lactate Dehydrogenase Troponin T C-Reactive Protein NT-Pro-B Natriuret Pep Total Protein Albumin LDL Cholesterol Direct TSH Arterial Blood Glucose Arterial Blood Ionized Calcium Salicylates Acetaminophen 07/19/20 07/19/20 07/19/20 00:10 08:13 11:43 Hct MCV RDW Plt Count Lymph % (Auto) Rhea % (Auto) Lymph # (Auto) Rhea # (Auto) Seg Neutrophils % Seg Neuts % (Manual) Lymphocytes % (Manual) Nucleated RBC % Seg Neutrophils # Lymphocytes # (Manual) PT INR D-Dimer ABG pH POC ABG pCO2 POC ABG pO2 ABG pO2 ABG HCO3 ABG O2 Saturation ABG Base Excess ABG Hemoglobin ABG Sodium ABG Glucose Oxyhemoglobin Potassium Chloride Carbon Dioxide 32 H BUN Creatinine 0.2 L Glucose 161 H POC Glucose 171 H 182 H Calcium 8.3 L Lactate Dehydrogenase Troponin T C-Reactive Protein NT-Pro-B Natriuret Pep Total Protein Albumin LDL Cholesterol Direct TSH Arterial Blood Glucose Arterial Blood Ionized Calcium Salicylates Acetaminophen 07/19/20 07/19/20 07/20/20 16:44 23:24 05:21 Hct MCV RDW Plt Count Lymph % (Auto) Rhea % (Auto) Lymph # (Auto) Rhea # (Auto) Seg Neutrophils % Seg Neuts % (Manual) Lymphocytes % (Manual) Nucleated RBC % Seg Neutrophils # Lymphocytes # (Manual) PT INR D-Dimer ABG pH POC ABG pCO2 POC ABG pO2 ABG pO2 ABG HCO3 ABG O2 Saturation ABG Base Excess ABG Hemoglobin ABG Sodium ABG Glucose Oxyhemoglobin Potassium Chloride Carbon Dioxide BUN Creatinine Glucose POC Glucose 146 H 170 H 124 H Calcium Lactate Dehydrogenase Troponin T C-Reactive Protein NT-Pro-B Natriuret Pep Total Protein Albumin LDL Cholesterol Direct TSH Arterial Blood Glucose Arterial Blood Ionized Calcium Salicylates Acetaminophen 07/20/20 07/20/20 07/20/20 11:54 16:22 23:24 Hct MCV RDW Plt Count Lymph % (Auto) Rhea % (Auto) Lymph # (Auto) Rhea # (Auto) Seg Neutrophils % Seg Neuts % (Manual) Lymphocytes % (Manual) Nucleated RBC % Seg Neutrophils # Lymphocytes # (Manual) PT INR D-Dimer ABG pH POC ABG pCO2 POC ABG pO2 ABG pO2 ABG HCO3 ABG O2 Saturation ABG Base Excess ABG Hemoglobin ABG Sodium ABG Glucose Oxyhemoglobin Potassium Chloride Carbon Dioxide BUN Creatinine Glucose POC Glucose 160 H 128 H 124 H Calcium Lactate Dehydrogenase Troponin T C-Reactive Protein NT-Pro-B Natriuret Pep Total Protein Albumin LDL Cholesterol Direct TSH Arterial Blood Glucose Arterial Blood Ionized Calcium Salicylates Acetaminophen 07/21/20 07/21/20 07/21/20 04:59 12:17 23:39 Hct MCV RDW Plt Count Lymph % (Auto) Rhea % (Auto) Lymph # (Auto) Rhea # (Auto) Seg Neutrophils % Seg Neuts % (Manual) Lymphocytes % (Manual) Nucleated RBC % Seg Neutrophils # Lymphocytes # (Manual) PT INR D-Dimer ABG pH POC ABG pCO2 POC ABG pO2 ABG pO2 ABG HCO3 ABG O2 Saturation ABG Base Excess ABG Hemoglobin ABG Sodium ABG Glucose Oxyhemoglobin Potassium Chloride Carbon Dioxide BUN Creatinine Glucose POC Glucose 129 H 153 H 140 H Calcium Lactate Dehydrogenase Troponin T C-Reactive Protein NT-Pro-B Natriuret Pep Total Protein Albumin LDL Cholesterol Direct TSH Arterial Blood Glucose Arterial Blood Ionized Calcium Salicylates Acetaminophen Allied health notes reviewed: RT
== END 2020-07-22 13:45 | DRG 207 ==
LOC: ED 20:23 → CC1 07-06 02:35 → 4A 07-18 18:35
PROVIDERS: ADMIT Internal Medicine Geriatric Medicine; ATTEND Internal Medicine
PROC: 0BH17EZ Insertion of Endotracheal Airway into Trachea, Via Natural or Artificial Opening (ICD-10-PCS; principal; 2020-07-05)
PROC: 5A1955Z Respiratory Ventilation, Greater than 96 Consecutive Hours (ICD-10-PCS; 2020-07-05)
PROC: 05HN33Z Insertion of Infusion Device into Left Internal Jugular Vein, Percutaneous Approach (ICD-10-PCS; 2020-07-05)
PROC: 4A033R1 Measurement of Arterial Saturation, Peripheral, Percutaneous Approach (ICD-10-PCS; 2020-07-08)
PROC: 02HV33Z Insertion of Infusion Device into Superior Vena Cava, Percutaneous Approach (ICD-10-PCS; 2020-07-09)
PROC: 5A09557 Assistance with Respiratory Ventilation, Greater than 96 Consecutive Hours, Continuous Positive Airway Pressure (ICD-10-PCS; 2020-07-17)
DX: J96.21 Acute and chronic respiratory failure with hypoxia (principal); G93.41 Metabolic encephalopathy; I48.92 Unspecified atrial flutter; E87.0 Hyperosmolality and hypernatremia; I13.0 Hypertensive heart and chronic kidney disease with heart failure and stage 1 through stage 4 chronic kidney disease, or unspecified chronic kidney disease; J44.1 Chronic obstructive pulmonary disease with (acute) exacerbation; I62.9 Nontraumatic intracranial hemorrhage, unspecified; J96.22 Acute and chronic respiratory failure with hypercapnia; Z20.828 Contact with and (suspected) exposure to other viral communicable diseases; I50.9 Heart failure, unspecified; F41.9 Anxiety disorder, unspecified; I25.10 Atherosclerotic heart disease of native coronary artery without angina pectoris; I48.0 Paroxysmal atrial fibrillation; E03.9 Hypothyroidism, unspecified; N18.9 Chronic kidney disease, unspecified; K21.9 Gastro-esophageal reflux disease without esophagitis; F17.200 Nicotine dependence, unspecified, uncomplicated; F32.9 Major depressive disorder, single episode, unspecified; E66.9 Obesity, unspecified; Z68.32 Body mass index [BMI] 32.0-32.9, adult; G89.29 Other chronic pain; M54.9 Dorsalgia, unspecified; R00.1 Bradycardia, unspecified; I65.21 Occlusion and stenosis of right carotid artery; D69.6 Thrombocytopenia, unspecified; I95.9 Hypotension, unspecified; Z88.5 Allergy status to narcotic agent; Z88.8 Allergy status to other drugs, medicaments and biological substances
CPT/HCPCS: 36415; 36600; 70450; 70551; 71045; 71275; 74018; 80048; 80053; 80061; 80320; 81001; 82140; 82550; 82728; 82803; 82805; 82947; 82962; 83615; 83735; 83880; 84145; 84439; 84443; 84484; 85007; 85014; 85018; 85025; 85027; 85379; 85610; 85730; 86140; 86850; 86900; 86901; 87040; 87070; 87086; 87116; 87205; 93005; 93880; 94002; 94003; 94640; 94660; 94760; G0378; A9270-GY; G0480; J0456; J0692; J0696; J1100; J1265; J1610; J1650; J1720; J1940; J1953; J2250; J2270; J2405; J2704; J2930; J3010; J3370; J3490; J7030; J7040; J7050; J7070; J7120; J7121; J7512; Q9967; U0003

== ENCOUNTER 2020-12-21 07:13 | Emergency (ER) | payer MEDICARE ==
[2020-12-21] MEDS ORDERED: HYDROcodone/ACETAMINOPHEN 10-325MG TAB PO ONE (07:39)
[2020-12-21] MEDS ORDERED: ONDANSETRON 4 MG ODT TAB PO ONE (07:39)
--- NOTE | 2020-12-21 07:42 | Emergency Department Report ---
ED General Adult HPI - General Chief complaint: Fall Stated complaint: GROUND LEVEL FALL Time Seen by Provider: 12/21/20 07:37 Source: patient, EMS Mode of arrival: Stretcher Limitations: No Limitations - History of Present Illness Initial comments: The patient presents to the emergency department with a chief complaint of headache status post a fall. The patient is from a local shelter states she fell out of the bed this morning hitting her head. She denies loss of consciousness but complains of a headache and neck pain. Patient also complains of hip pain as well. Patient denies chest pain, shortness breath, or headache. Patient denies fever, cough, diarrhea. -: Sudden Location: head, neck, pelvis Radiation: non-radiation Severity scale (0 -10): 7 Quality: aching Consistency: constant Improves with: rest Worsens with: movement Associated Symptoms: denies other symptoms Treatments Prior to Arrival: none - Related Data Home Medications Medication Instructions Recorded Confirmed Last Taken ALPRAZolam [Xanax TAB] 0.25 mg PO TID PRN 07/06/20 07/06/20 Unknown Acetaminophen [Acetaminophen TAB] 650 mg PO Q6HR PRN 07/06/20 07/06/20 Unknown Amiodarone HCl [Amiodarone 100 MG 100 mg PO BID 07/06/20 07/06/20 Unknown TAB] AtorvaSTATin [Lipitor] 40 mg PO QHS 07/06/20 07/06/20 Unknown Ipratropium/Albuterol Sulfate 1 ampul IH Q8HR 07/06/20 07/06/20 Unknown [DUONEB *Not for PRN Use*] Lactulose [Cephulac] 20 gm PO Q6HR 07/06/20 07/06/20 Unknown Melatonin [Melatonin 10MG TAB] 10 mg PO QHS 07/06/20 07/06/20 Unknown Previous Rx's Medication Instructions Recorded Last Taken Type Famotidine [Pepcid] 20 mg PO BID #60 tablet 07/21/20 Unknown Rx HYDROcodone/APAP 5-325 [[place] 1 each PO Q6HR PRN #14 tablet 07/21/20 Unknown Rx 5-325 mg TAB] Melatonin [Melatonin 5MG TAB] 10 mg PO QHS #30 tablet 07/21/20 Unknown Rx Prednisone [predniSONE 5 mg (6-Day 5 mg PO .TAPER #1 tab.ds.pk 07/21/20 Unknown Rx Pack, 21 Tabs)] QUEtiapine [SEROquel] 200 mg PO BID #60 tablet 07/21/20 Unknown Rx dilTIAZem [Cardizem] 60 mg PO Q8HR #60 tablet 07/21/20 Unknown Rx Allergies Allergy/AdvReac Type Severity Reaction Status Date / Time clopidogrel [From Plavix] Allergy Unknown Verified 04/20/20 14:51 hydromorphone [From Dilaudid] Allergy Unknown Verified 04/20/20 14:51 phenobarbital Allergy Unknown Verified 04/20/20 14:51 ED Review of Systems ROS: Stated complaint: GROUND LEVEL FALL Other details as noted in HPI Constitutional: denies: chills, fever Eyes: denies: eye pain, eye discharge, vision change ENT: denies: ear pain, throat pain Respiratory: denies: cough, shortness of breath, wheezing Cardiovascular: denies: chest pain, palpitations Endocrine: no symptoms reported Gastrointestinal: denies: abdominal pain, nausea, diarrhea Genitourinary: denies: urgency, dysuria, discharge Musculoskeletal: other (Neck and hip pain). denies: back pain, joint swelling, arthralgia Skin: denies: rash, lesions Neurological: denies: headache, weakness, paresthesias Psychiatric: denies: anxiety, depression Hematological/Lymphatic: denies: easy bleeding, easy bruising ED Past Medical Hx - Past Medical History Hx Congestive Heart Failure: Yes Hx Deep Vein Thrombosis: No Hx GERD: Yes Hx Renal Disease: Yes Hx Psychiatric Treatment: (anxiety, psychosis) Hx COPD: Yes Additional medical history: Angina Pectoris, Bronchitis, U.T.I - Surgical History Hx Pacemaker: No Hx Internal Defibrillator: No - Social History Smoking Status: Unknown if ever smoked - Medications Home Medications: Home Medications Medication Instructions Recorded Confirmed Last Taken Type ALPRAZolam [Xanax TAB] 0.25 mg PO TID PRN 07/06/20 07/06/20 Unknown History Acetaminophen [Acetaminophen TAB] 650 mg PO Q6HR PRN 07/06/20 07/06/20 Unknown History Amiodarone HCl [Amiodarone 100 MG 100 mg PO BID 07/06/20 07/06/20 Unknown History TAB] AtorvaSTATin [Lipitor] 40 mg PO QHS 07/06/20 07/06/20 Unknown History Ipratropium/Albuterol Sulfate 1 ampul IH Q8HR 07/06/20 07/06/20 Unknown History [DUONEB *Not for PRN Use*] Lactulose [Cephulac] 20 gm PO Q6HR 07/06/20 07/06/20 Unknown History Melatonin [Melatonin 10MG TAB] 10 mg PO QHS 07/06/20 07/06/20 Unknown History Famotidine [Pepcid] 20 mg PO BID #60 tablet 07/21/20 Unknown Rx HYDROcodone/APAP 5-325 [[place] 1 each PO Q6HR PRN #14 tablet 07/21/20 Unknown Rx 5-325 mg TAB] Melatonin [Melatonin 5MG TAB] 10 mg PO QHS #30 tablet 07/21/20 Unknown Rx Prednisone [predniSONE 5 mg (6-Day 5 mg PO .TAPER #1 tab.ds.pk 07/21/20 Unknown Rx Pack, 21 Tabs)] QUEtiapine [SEROquel] 200 mg PO BID #60 tablet 07/21/20 Unknown Rx dilTIAZem [Cardizem] 60 mg PO Q8HR #60 tablet 07/21/20 Unknown Rx ED Physical Exam - General Limitations: No Limitations General appearance: alert, in no apparent distress - Head Head exam: Present: atraumatic, normocephalic - Eye Eye exam: Present: normal appearance - ENT ENT exam: Present: mucous membranes dry - Neck Neck exam: Present: normal inspection - Respiratory Respiratory exam: Present: normal lung sounds bilaterally. Absent: respiratory distress - Cardiovascular Cardiovascular Exam: Present: normal rhythm, tachycardia. Absent: systolic murmur, diastolic murmur, rubs, gallop - GI/Abdominal GI/Abdominal exam: Present: soft, normal bowel sounds. Absent: distended, tenderness - Extremities Exam Extremities exam: Present: normal inspection, other (No tenderness to palpation of the hips bilaterally) - Back Exam Back exam: Present: normal inspection - Neurological Exam Neurological exam: Present: alert, oriented X3, CN II-XII intact. Absent: motor sensory deficit - Psychiatric Psychiatric exam: Present: normal affect, normal mood - Skin Skin exam: Present: warm, dry, intact, normal color. Absent: rash ED Course Vital Signs 12/21/20 12/21/20 12/21/20 07:25 07:26 07:31 Temperature 97.5 F L Pulse Rate 113 H 116 H Respiratory 21 Rate Blood Pressure 105/68 O2 Sat by Pulse 92 92 Oximetry ED Medical Decision Making - Radiology Data Radiology results: report reviewed - Medical Decision Making Discussed results with patient Patient states she has some improvement of symptoms with pain medications Patient's heart rate is 104 bpm upon my reevaluation at 9:20 AM. Elevated heart rate likely secondary to pain. Patient states she still currently having but not as bad as when she first arrived. Critical care attestation.: If time is entered above; I have spent that time in minutes in the direct care of this critically ill patient, excluding procedure time. ED Disposition Clinical Impression: Closed head injury, Hip pain, acute, Cervical strain, acute Disposition: DC-01 TO HOME OR SELFCARE Is pt being admited?: No Does the pt Need Aspirin: No Condition: Undetermined Instructions: Cervical Sprain, Head Injury, Adult, [id number] Additional Instructions: return if worse Time of Disposition: 09:23
--- NOTE | 2020-12-21 08:13 | XRay Report ---
PELVIS 2 VIEWS INDICATION: fall/pain. COMPARISON: None. IMPRESSION: Osteopenia is evident. No displaced fracture, diastasis or bony lesion is detected. The re is poor visualization of the sacrum secondary to moderate to large stool in the rectal vault. Mild degenerative changes are noted at the hip joints, right greater than left. Signer Name: Lucas Simons Jr, MD Signed: 12/21/2020 8:08 AM Workstation Name: [id number]
--- NOTE | 2020-12-21 08:39 | Cat Scan Report ---
CT HEAD WITHOUT CONTRAST HISTORY: fall with head injury. TECHNIQUE: Axial imaging performed from the skull apex through the skull base without the use of con trast. All CT scans at this location are performed using CT dose reduction for ALARA by means of aut omated exposure control. COMPARISON: 07/06/2020 FINDINGS: Parenchyma: No acute intracranial hemorrhage or parenchymal abnormality. Focal subcortical hemorrhag es in both frontal lobes have resolved since the previous exam. Moderate diffuse volume loss is stabl e. Mild hypoattenuation throughout the white matter is noted and consistent with chronic microvascula r ischemic disease. No chronic infarct. Ventricles: There is mild diffuse brain atrophy with commensurate ventricular enlargement which is l ikely age appropriate. Soft tissues: Soft tissues including the orbits appear normal. Bones: No acute osseous abnormality. Sinuses: Sinuses and mastoid air cells are clear. IMPRESSION: No acute abnormality. Age-related changes as described. CT CERVICAL SPINE WITHOUT CONTRAST INDICATION: fall with head injury. Midline C-spine pain after fall. TECHNIQUE: Axial imaging performed through the cervical spine without the use of contrast. Sagittal and coronal reconstructed images were also reviewed. All CT scans at this location are performed us ing CT dose reduction for ALARA by means of automated exposure control. COMPARISON: 04/20/2020 FINDINGS: Alignment: Spinal alignment is normal. Bones: Osteopenia is again noted. Alignment is anatomic. No acute fracture or suspicious bony lesio n is detected in the cervical spine. Posterior stabilization of the thoracic spine is partially image d which generates artifact. Mild multilevel discogenic DJD and facet arthropathy are stable. Soft tissues: No acute or significant incidental soft tissue abnormality. IMPRESSION: No acute injury of the cervical spine is detected on CT. Osteopenia. Degenerative change s. No significant change since 04/20/2020. Signer Name: Lucas Simons Jr, MD Signed: 12/21/2020 8:34 AM Workstation Name: [id number]
[2020-12-21 10:27] VITALS: BP 116/68
== END 2020-12-21 10:41 | disposition home or self-care (01) ==
LOC: ED 07:13
DX: S09.90XA Unspecified injury of head, initial encounter (principal); S16.1XXA Strain of muscle, fascia and tendon at neck level, initial encounter; K21.9 Gastro-esophageal reflux disease without esophagitis; F41.9 Anxiety disorder, unspecified; J44.9 Chronic obstructive pulmonary disease, unspecified; Z79.899 Other long term (current) drug therapy; Z88.8 Allergy status to other drugs, medicaments and biological substances; W06.XXXA Fall from bed, initial encounter; Y93.89 Activity, other specified; Y92.89 Other specified places as the place of occurrence of the external cause; Y99.8 Other external cause status
CPT/HCPCS: 70450; 72125; 72170; Q0162

== ENCOUNTER 2021-05-06 22:31 | Observation (INO) | payer MEDICARE ==
--- NOTE | 2021-05-06 22:50 | Emergency Department Report ---
ED Chest Pain HPI - General Chief Complaint: Chest Pain Stated Complaint: CHEST PAIN/SVT PUI?: Yes Time Seen by Provider: 05/06/21 22:45 Source: patient, EMS Mode of arrival: Ambulatory Limitations: No Limitations - History of Present Illness Initial Comments: Patient is a 60-year-old female that presents emergency room with complaints of chest pain and palpitation. Patient brought in by EMS. Patient is currently on hospice for COPD. Patient complained of chest pain to her hospice nurse and the hospice nurse given her multiple doses of morphine to equal 30 mg. Patient states her chest pain was a 10 out of 10 but since being treated by EMS the patient states that the chest pain is a 6 out of 10. Patient states her chest pain is better with rest and worse with exertion and movement. Patient is on home oxygen for chronic respiratory failure. Patient denies fever chills. Patient denies cough. Patient states the palpitations have resolved. Patient complains of shortness of breath. Patient states short of breath better with rest and worse with exertion. Patient states she has chronic shortness of breath but today her shortness of breath is worse. Patient brought in by EMS. Report received from EMS. EMS found the patient to be in SVT and gave the patient adenosine. Patient converted with a 12 mg dose of adenosine. Patient is currently in sinus tach at 114. Patient is also on oxygen. Patient denies recent travel. Patient denies recent international travel. Patient denies exposure to the novel coronavirus. Patient denies sick contacts. Patient denies fever and chills. Patient denies cough. Patient denies diarrhea. Patient denies coming in contact with anybody with symptoms of the no antonieta coronavirus. Patient is currently on hospice. Patient presents emergency room with her DNR form. Patient is still a DNR. MD Complaint: chest pain -: Sudden Onset: during rest Pain Location: left chest Pain Radiation: none Severity: severe Severity scale (0 -10): 7 Quality: sharp Consistency: constant Improves With: rest Worsens With: exertion re: dyspnea, sense of impending doom. denies: nausea, vomting, diaphoresis Other Symptoms: palpitations. denies: cough, fever, syncope, rash, acid taste in mouth, leg swelling, burping Treatments Prior to Arrival: oxygen, other (Adenosine, morphine) Aspirin use within the Past 7 Days: (1) Yes - Related Data On Oral Contraceptives: No Home Medications Medication Instructions Recorded Confirmed Last Taken ALPRAZolam [Xanax TAB] 0.25 mg PO TID PRN 07/06/20 07/06/20 Unknown Acetaminophen [Acetaminophen TAB] 650 mg PO Q6HR PRN 07/06/20 07/06/20 Unknown Amiodarone HCl [Amiodarone 100 MG 100 mg PO BID 07/06/20 07/06/20 Unknown TAB] AtorvaSTATin [Lipitor] 40 mg PO QHS 07/06/20 07/06/20 Unknown Ipratropium/Albuterol Sulfate 1 ampul IH Q8HR 07/06/20 07/06/20 Unknown [DUONEB *Not for PRN Use*] Lactulose [Cephulac] 20 gm PO Q6HR 07/06/20 07/06/20 Unknown Melatonin [Melatonin 10MG TAB] 10 mg PO QHS 07/06/20 07/06/20 Unknown Previous Rx's Medication Instructions Recorded Last Taken Type Famotidine [Pepcid] 20 mg PO BID #60 tablet 07/21/20 Unknown Rx HYDROcodone/APAP 5-325 [[place] 1 each PO Q6HR PRN #14 tablet 07/21/20 Unknown Rx 5-325 mg TAB] Melatonin [Melatonin 5MG TAB] 10 mg PO QHS #30 tablet 07/21/20 Unknown Rx Prednisone [predniSONE 5 mg (6-Day 5 mg PO .TAPER #1 tab.ds.pk 07/21/20 Unknown Rx Pack, 21 Tabs)] QUEtiapine [SEROquel] 200 mg PO BID #60 tablet 07/21/20 Unknown Rx dilTIAZem [Cardizem] 60 mg PO Q8HR #60 tablet 07/21/20 Unknown Rx Allergies Allergy/AdvReac Type Severity Reaction Status Date / Time clopidogrel [From Plavix] Allergy Unknown Verified 04/20/20 14:51 hydromorphone [From Dilaudid] Allergy Unknown Verified 04/20/20 14:51 phenobarbital Allergy Unknown Verified 04/20/20 14:51 Heart Score - HEART Score History: Moderately suspicious EKG: Non-specific Age: 45-65 Risk factors: > 3 risk factors or hx of atherosclerotic disease Troponin: < normal limit HEART Score: 5 - EKG Read Time Time EKG Completed: 23:57 EKG Read Time: 23:58 ED Review of Systems ROS: Stated complaint: CHEST PAIN/SVT Other details as noted in HPI Constitutional: denies: chills, fever Eyes: denies: eye pain, eye discharge, vision change ENT: denies: ear pain, throat pain Respiratory: see HPI, shortness of breath, SOB with exertion, SOB at rest. denies: cough, wheezing Cardiovascular: as per HPI, chest pain. denies: palpitations Endocrine: no symptoms reported Gastrointestinal: denies: abdominal pain, nausea, diarrhea Genitourinary: denies: urgency, dysuria, discharge Musculoskeletal: denies: back pain, joint swelling, arthralgia Skin: denies: rash, lesions Neurological: denies: headache, weakness, paresthesias Psychiatric: denies: anxiety, depression Hematological/Lymphatic: denies: easy bleeding, easy bruising ED Past Medical Hx - Past Medical History Previous Medical History?: Yes Hx Hypertension: Yes Hx Congestive Heart Failure: Yes Hx Deep Vein Thrombosis: No Hx GERD: Yes Hx Renal Disease: Yes Hx Psychiatric Treatment: (anxiety, psychosis) Hx COPD: Yes Additional medical history: Angina Pectoris, Bronchitis, U.T.I - Surgical History Past Surgical History?: No Hx Pacemaker: No Hx Internal Defibrillator: No - Social History Smoking Status: Former Smoker Substance Use Type: None - Medications Home Medications: Home Medications Medication Instructions Recorded Confirmed Last Taken Type ALPRAZolam [Xanax TAB] 0.25 mg PO TID PRN 07/06/20 07/06/20 Unknown History Acetaminophen [Acetaminophen TAB] 650 mg PO Q6HR PRN 07/06/20 07/06/20 Unknown History Amiodarone HCl [Amiodarone 100 MG 100 mg PO BID 07/06/20 07/06/20 Unknown History TAB] AtorvaSTATin [Lipitor] 40 mg PO QHS 07/06/20 07/06/20 Unknown History Ipratropium/Albuterol Sulfate 1 ampul IH Q8HR 07/06/20 07/06/20 Unknown History [DUONEB *Not for PRN Use*] Lactulose [Cephulac] 20 gm PO Q6HR 07/06/20 07/06/20 Unknown History Melatonin [Melatonin 10MG TAB] 10 mg PO QHS 07/06/20 07/06/20 Unknown History Famotidine [Pepcid] 20 mg PO BID #60 tablet 07/21/20 Unknown Rx HYDROcodone/APAP 5-325 [[place] 1 each PO Q6HR PRN #14 tablet 07/21/20 Unknown Rx 5-325 mg TAB] Melatonin [Melatonin 5MG TAB] 10 mg PO QHS #30 tablet 07/21/20 Unknown Rx Prednisone [predniSONE 5 mg (6-Day 5 mg PO .TAPER #1 tab.ds.pk 07/21/20 Unknown Rx Pack, 21 Tabs)] QUEtiapine [SEROquel] 200 mg PO BID #60 tablet 07/21/20 Unknown Rx dilTIAZem [Cardizem] 60 mg PO Q8HR #60 tablet 07/21/20 Unknown Rx ED Physical Exam - General General appearance: alert, in distress - Head Head exam: Present: atraumatic, normocephalic - Eye Eye exam: Present: normal appearance, PERRL Pupils: Present: normal accommodation - ENT ENT exam: Present: mucous membranes moist - Neck Neck exam: Present: normal inspection - Respiratory Respiratory exam: Present: normal lung sounds bilaterally. Absent: respiratory distress, wheezes - Cardiovascular Cardiovascular Exam: Present: regular rate, normal rhythm, normal heart sounds. Absent: systolic murmur, diastolic murmur, rubs, gallop - GI/Abdominal GI/Abdominal exam: Present: soft, normal bowel sounds - Extremities Exam Extremities exam: Present: normal inspection - Back Exam Back exam: Present: normal inspection - Neurological Exam Neurological exam: Present: alert, oriented X3 - Psychiatric Psychiatric exam: Present: normal affect, normal mood - Skin Skin exam: Present: warm, dry, intact, normal color. Absent: rash ED Course Vital Signs 05/06/21 23:39 Temperature 98 F Pulse Rate 93 H Respiratory 22 Rate Blood Pressure 97/79 O2 Sat by Pulse 97 Oximetry - Reevaluation(s) Reevaluation #1: I discussed all results with patient. I discussed plan of care with patient. Patient agrees with plan of care and admission. Patient to be admitted to the hospitalist service. 05/07/21 00:41 - Consultations Consultation #1: Hospitalist consulted for admission. Hospitalist to admit patient. 05/07/21 00:41 LESLEY score - Lesley Score Age > 65: (1) Yes Aspirin use within the Past 7 Days: (1) Yes 3 or more CAD Risk Factors: (1) Yes 2 or more Angina events in past 24 hrs: (0) No Known CAD with more than 50% Stenosis: (0) No Elevated Cardiac Markers: (0) No ST Deviation Greater than 0.5mm: (0) No LESLEY Score: 3 ED Medical Decision Making - Lab Data Result diagrams: 05/06/21 23:10 05/06/21 23:10 - EKG Data -: EKG Interpreted by Me EKG shows normal: sinus rhythm, axis, intervals, QRS complexes, ST-T waves Rate: normal - Radiology Data Radiology results: report reviewed, image reviewed interpreted by me: Chest x-ray: pos pneumonia, no pneumothorax, no foreign body, no osseous fin dings, no acute findings XR chest 1V ap INDICATION / CLINICAL INFORMATION: Chest Pain. COMPARISON: 07/17/2020 FINDINGS: SUPPORT DEVICES: None HEART /PULMONARY VASCULATURE: Cardiac silhouette is accentuated with increased pulmonary vasculature congestion. LUNGS / PLEURA: Scattered diffuse increased interstitial opacities with left basilar airspace opacity. No sizable pleural effusion. No pneumothorax. IMPRESSION: Diffuse increased interstitial opacities and left basilar airspace opacity, which may reflect interstitial edema/atelectasis. Recommend clinical correlation to exclude pneumonia. - Medical Decision Making Patient is a 60-year-old female who presents emergency room with complaint of chest pain, palpitations and shortness of breath. Patient brought in by EMS and EMS states that the patient was found to be in SVT and given a dose of 6 mg adenosine followed by 12 mg dose and the patient converted to a sinus tachycardia. Patient's initial EKG showed a normal sinus rhythm no ST changes. I personally reviewed the EKG. Patient had a chest x-ray which shows a unilateral pneumonia. I personally reviewed the chest x-ray. Patient had labs done which were essentially unremarkable except for high normal troponin level. Patient admitted to the hospitalist service for further evaluation and treatment. Critical care time documented due to the multiple reassessments, prolonged time at the bedside, interpretation of diagnostics and labs. - Differential Diagnosis SVT, pneumonia, chest pain, ACS, SOB Critical Care Time: Yes Critical care time in (mins) excluding proc time.: 35 Critical care attestation.: If time is entered above; I have spent that time in minutes in the direct care of this critically ill patient, excluding procedure time. Critical Care Time: 35 minutes ED Disposition Clinical Impression: Respiratory failure Qualifiers: Chronicity: chronic Respiratory failure complication: hypoxia Qualified Code(s): J96.11 - Chronic respiratory failure with hypoxia Pneumonia Qualifiers: Pneumonia type: due to unspecified organism Laterality: left Lung location: unspecified part of lung Qualified Code(s): J18.9 - Pneumonia, unspecified organism Chest pain Qualifiers: Chest pain type: unspecified Qualified Code(s): R07.9 - Chest pain, unspecified Hypotension Qualifiers: Hypotension type: unspecified hypotension type Qualified Code(s): I95.9 - Hypotension, unspecified Sepsis Qualifiers: Sepsis type: sepsis due to unspecified organism Sepsis acute organ dysfunction status: without acute organ dysfunction Qualified Code(s): A41.9 - Sepsis, unspecified organism Disposition: 09 ADMITTED INPATIENT Is pt being admited?: Yes Does the pt Need Aspirin: No Condition: Critical Instructions: Bacterial Pneumonia (ED) Time of Disposition: 00:49
[2021-05-07 00:13] LABS: Alanine Aminotransferase 56 units/L (7-56); Albumin 3.3 g/dL (3.9-5); Blood Urea Nitrogen 12 mg/dL (7-17); Calcium 8.4 mg/dL (8.4-10.2); Hemolysis Index 0
[2021-05-07 00:18] LABS: BUN/Creatinine Ratio 40
[2021-05-07 00:29] LABS: Basophils % (Auto) 0.5 % (0.0-1.8); Eosinophils # (Auto) 0.1 K/mm3 (0.0-0.4); Eosinophils % (Auto) 1.1 % (0.0-4.3); Hematocrit 37.1 % (30.3-42.9); Hemoglobin 11.9 gm/dl (10.1-14.3); Lymphocytes # (Auto) 0.9 K/mm3 (1.2-5.4); Lymphocytes % (Auto) 10.1 % (13.4-35.0); Mean Corpuscular HGB Conc 32 % (30-34); Mean Corpuscular Volume 84 fl (79-97); Monocytes % (Auto) 10.6 % (0.0-7.3); Platelet Count 221 K/mm3 (140-440); Red Blood Count 4.44 M/mm3 (3.65-5.03); Red Cell Distribution Width 18.1 % (13.2-15.2)
--- NOTE | 2021-05-07 00:32 | XRay Report ---
XR chest 1V ap INDICATION / CLINICAL INFORMATION: Chest Pain. COMPARISON: 07/17/2020 FINDINGS: SUPPORT DEVICES: None HEART /PULMONARY VASCULATURE: Cardiac silhouette is accentuated with increased pulmonary vasculature congestion. LUNGS / PLEURA: Scattered diffuse increased interstitial opacities with left basilar airspace opacity . No sizable pleural effusion. No pneumothorax. IMPRESSION: Diffuse increased interstitial opacities and left basilar airspace opacity, which may reflect interst itial edema/atelectasis. Recommend clinical correlation to exclude pneumonia. Signer Name: Tai Joaquin MD Signed: 05/07/2021 12:28 AM Workstation Name: [id number]
[2021-05-07] MEDS ORDERED: SODIUM CHLORIDE 0.9% 500 ML 250 ML IV ONE (00:38)
[2021-05-07] MEDS ORDERED: cefTRIAXone/NS 2 GM/100 ML 2 GM/100 ML BAG IV ONE (00:39)
[2021-05-07] MEDS ORDERED: AZITHROMYCIN/NS 500 MG/250 ML 500 MG/250 ML BAG IV ONE (00:39)
--- NOTE | 2021-05-07 01:18 | History and Physical Report ---
History of Present Illness Date of examination: 05/07/21 Date of admission: 05/07/21 Chief complaint: chest pain shortness of breath History of present illness: This is a 60-year-old female seen in the ED at bedside. She presents to emergency room with complaints of chest pain and palpitation. Patient brought in by EMS. Patient is currently on hospice for COPD. Patient complained of chest pain to her hospice nurse and the hospice nurse given her multiple doses of morphine to equal 30 mg. Patient states her chest pain was a 10 out of 10 but since being treated by EMS the patient states that the chest pain is a 6 out of 10. Patient states her chest pain is better with rest and worse with exertion and movement. Patient is on home oxygen for chronic respiratory failure. Patient denies fever, chills and cough. Patient states the palpitations have resolved after getting adenosine. Chest x-ray shows diffuse increased interstitial opacity and left basilar airspace opacity. Past History Past Medical History: COPD, diabetes, hypertension Past Surgical History: appendectomy, tonsillectomy, Other (back surgery) Social history: smoking, AND/DNR-allow natural . denies: alcohol abuse, prescription drug abuse, IV drug use Family history: hypertension, other Medications and Allergies Allergies Allergy/AdvReac Type Severity Reaction Status Date / Time clopidogrel [From Plavix] Allergy Unknown Verified 04/20/20 14:51 hydromorphone [From Dilaudid] Allergy Unknown Verified 04/20/20 14:51 phenobarbital Allergy Unknown Verified 04/20/20 14:51 Home Medications Medication Instructions Recorded Confirmed Last Taken Type ALPRAZolam [Xanax TAB] 0.25 mg PO TID PRN 07/06/20 05/07/21 Unknown History Acetaminophen [Acetaminophen TAB] 650 mg PO Q6HR PRN 07/06/20 05/07/21 Unknown History Amiodarone HCl [Amiodarone 100 MG 100 mg PO BID 07/06/20 05/07/21 Unknown History TAB] AtorvaSTATin [Lipitor] 40 mg PO QHS 07/06/20 05/07/21 Unknown History Ipratropium/Albuterol Sulfate 1 ampul IH Q8HR 07/06/20 05/07/21 Unknown History [DUONEB *Not for PRN Use*] Lactulose [Cephulac] 20 gm PO Q6HR 07/06/20 05/07/21 Unknown History Melatonin [Melatonin 10MG TAB] 10 mg PO QHS 07/06/20 05/07/21 Unknown History Famotidine [Pepcid] 20 mg PO BID #60 tablet 07/21/20 05/07/21 Unknown Rx HYDROcodone/APAP 5-325 [[place] 1 each PO Q6HR PRN #14 tablet 07/21/20 05/07/21 Unknown Rx 5-325 mg TAB] QUEtiapine [SEROquel] 200 mg PO BID #60 tablet 07/21/20 05/07/21 Unknown Rx dilTIAZem [Cardizem] 60 mg PO Q8HR #60 tablet 07/21/20 05/07/21 Unknown Rx Active Meds: Active Medications Azithromycin (Zithromax/Ns) 500 mg in 250 mls @ 250 mls/hr IV ONCE ONE; Protocol Stop: 05/07/21 01:38 Review of Systems Constitutional: fatigue, weakness Ears, nose, mouth and throat: no epistaxis, no bleeding gums Cardiovascular: chest pain, rapid/irregular heart beat, shortness of breath, high blood pressure Respiratory: cough, shortness of breath, home oxygen (3l per n/c) Gastrointestinal: no melena Rectal: no hemorrhoids Musculoskeletal: low back pain, muscle weakness Integumentary: no rash, no pruritis, no redness Psychiatric: anxiety, no disorientation, no hallucinations Hematologic/Lymphatic: no easy bruising, no easy bleeding Allergic/Immunologic: no urticaria, no allergic rhinitis Exam - Constitutional Vitals: Temp Pulse Resp BP Pulse Ox 98 F 93 H 22 97/79 97 05/06/21 23:39 05/06/21 23:39 05/06/21 23:39 05/06/21 23:39 05/06/21 23:39 General appearance: Present: mild distress, well-nourished - EENT Eyes: Present: PERRL ENT: hearing intact, clear oral mucosa - Neck Neck: Present: supple, normal ROM - Respiratory Respiratory effort: normal Respiratory: bilateral: CTA - Cardiovascular Heart Sounds: Present: S1 & S2. Absent: rub, click - Extremities Extremities: pulses symmetrical, No edema Peripheral Pulses: within normal limits - Abdominal General gastrointestinal: Present: soft, non-tender, non-distended, normal bowel sounds Female genitourinary: Present: normal - Integumentary Integumentary: Present: clear, warm, dry - Musculoskeletal Musculoskeletal: gait normal, strength equal bilaterally - Psychiatric Psychiatric: appropriate mood/affect, intact judgment & insight, cooperative - Neurologic Neurologic: CNII-XII intact, moves all extremities - Allied Health Allied health notes reviewed: nursing HEART Score - HEART Score EKG: Non-specific Age: 45-65 Risk factors: > 3 risk factors or hx of atherosclerotic disease Troponin: Troponin T 0.029 ng/mL (0.00-0.029) 05/06/21 23:10 Troponin: < normal limit Results - Labs CBC & Chem 7: 05/06/21 23:10 05/06/21 23:10 Labs: Abnormal lab results 05/06/21 05/06/21 Range/Units 23:10 23:10 MCH 27 L (28-32) pg RDW 18.1 H (13.2-15.2) % Lymph % (Auto) 10.1 L (13.4-35.0) % [place] % (Auto) 10.6 H (0.0-7.3) % Lymph # (Auto) 0.9 L (1.2-5.4) K/mm3 [place] # (Auto) 1.0 H (0.0-0.8) K/mm3 Seg Neutrophils % 77.7 H (40.0-70.0) % Carbon Dioxide 32 H (22-30) mmol/L Creatinine 0.3 L (0.6-1.2) mg/dL Glucose 147 H (65-100) mg/dL AST 89 H (5-40) units/L Alkaline Phosphatase 818 H (35-129) units/L Albumin 3.3 L (3.9-5) g/dL Assessment and Plan - Patient Problems (1) Respiratory failure with hypoxia Current Visit: No Status: Chronic Plan to address problem: Patient has history of tobacco use for many years Patient is on home oxygen at 3 L nasal cannula Continue oxygen, respiratory care bronchodilator as needed Chest x-rayshowed diffuse increased interstitial opacity and left basilar airspace opacity which may be edema/atelectasis. (2) Pneumonia Current Visit: No Status: Acute Qualifiers: Pneumonia type: due to unspecified organism Laterality: left Lung location: unspecified part of lung Qualified Code(s): J18.9 - Pneumonia, unspecified organism Plan to address problem: Chest x-ray showed pneumonia Start empiric antibiotic azithromycin and Rocephin Continue oxygen supplement and bronchodilator ABG and serial checks x-ray (3) Chest pain Current Visit: No Status: Acute Qualifiers: Chest pain type: unspecified Qualified Code(s): R07.9 - Chest pain, unspecified Plan to address problem: Likely secondary to pneumonia/SVT/hypertension Pain management Troponin is negative (4) SVT (supraventricular tachycardia) Current Visit: No Status: Acute Plan to address problem: Patient came with SVTresolved with adenosine in the ED Patient has history of A. fib on home amiodarone therapy. Continue home amiodarone (5) Hypertension Current Visit: No Status: Chronic Plan to address problem: Monitor vital signs Continue home antihypertensive As needed hydralazine (6) DVT prophylaxis Current Visit: No Status: Acute Plan to address problem: Subcutaneous Lovenox
[2021-05-07] MEDS ORDERED: oxyCODONE /ACETAMINOPHEN 5-325MG TAB PO PRN (01:34)
[2021-05-07] MEDS ORDERED: ALUM-MAG HYDROXIDE-SIMETHICONE 200-200-20MG/5ML ORAL LIQD 30 ML PO PRN (01:34)
[2021-05-07] MEDS ORDERED: SENNOSIDES 8.6 MG TAB PO PRN (01:34)
[2021-05-07] MEDS ORDERED: ALPRAZolam 0.25 MG TAB PO PRN (01:34)
[2021-05-07] MEDS ORDERED: METOCLOPRAMIDE 10 MG/2 ML INJ IV PRN (01:34)
[2021-05-07] MEDS ORDERED: MAGNESIUM HYDROXIDE (MOM) ORAL LIQD UDC PO PRN (01:34)
[2021-05-07] MEDS ORDERED: ACETAMINOPHEN 325 MG TAB PO PRN (01:34)
[2021-05-07] MEDS ORDERED: MORPHINE 2 MG/1 ML INJ IV PRN (01:34)
[2021-05-07] MEDS ORDERED: ONDANSETRON 4 MG/2 ML INJ IV PRN (01:34)
[2021-05-07] MEDS ORDERED: traZODone 50 MG TAB PO PRN (01:38)
[2021-05-07] MEDS ORDERED: traMADol 50 MG TAB PO PRN (01:38)
[2021-05-07] MEDS ORDERED: hydrALAZINE 20 MG/1 ML INJ IV PRN (01:38)
[2021-05-07] MEDS: dilTIAZem 60 MG TAB PO SCH ×2 (06:17→14:45)
[2021-05-07 06:28] LABS: Chol/HDL Ratio 3.97 %
--- NOTE | 2021-05-07 08:25 | Discharge Summary ---
Providers - Providers Date of Admission: 05/07/21 01:34 Attending physician: ZIYAD LUDWIG MD 05/07/21 04:29 Consult to Physician [CONS] Routine Comment: Consulting Provider: ION ROSAS Physician Instructions: Reason For Exam: SVT Primary care physician: DOCUMENTATION ANALYST Hospitalization Reason for admission: generalized body pain, SVT Condition: Stable Hospital course: Patient is a 60-year-old female with complaint of chest pain, palpitations and shortness of breath. The patient is a [facility]. She was noted to have a heart rate over 200 for which she was sent to the hospital. It is reported that she complained of chest pain despite getting multiple doses of morphine to equal 30mg. She did receive adenosine prior to arriving to the hospital 6 mg followed by 12 mg and converted to sinus rhythm and has remained in sinus rhythm since then. On my evaluation this morning the patient reports that her pain chronic but has been getting worse. She does have an protruding hardware on the back which has been for some time and no management was recommended Again secondary to hospice management and patient still affirms that she wants to continue hospice. She does not have any fever or white count at this time. I have discussed with the family specifically the sister and they're all in agreement with the treatment plan of adjusting pain medication and discharging the patient. There was a mild bump of troponin but relatively stable. EKG is without any significant changes. Imaging studies were concerning for possible pneumonia but again no fever no increased sputum no worsening shortness of breath. Discharge diagnosis Acute on chronic generalized body pain Atypical chest pain secondary to costochondritis SVT secondary to worsening pain Hospice patient Abnormal x-ray possible infiltrates concerning for pneumonia versus atelectasis Chronic opiate dependence syndrome Chronic generalized body pain Systemic inflammatory response syndrome without organ dysfunction Protruding hardware on the back Depression Severe protein calorie malnutrition with cachexia Disposition: 50 HOSPICE/HOME Final Discharge Diagnosis (Prints w/discharge instructions): SVT Time spent for discharge: 35 mins Core Measure Documentation - Palliative Care Palliative Care/ Comfort Measures: Hospice Care - Core Measures Any of the following diagnoses?: none Exam - Physical Exam Narrative exam: VITAL SIGNS: Reviewed. GENERAL: The patient appears normally chronically ill-appearing, emaciated, contracted vital signs as documented. HEAD: No signs of head trauma. EYES: Pupils are equal. Extraocular motions intact. EARS: Hearing grossly intact. MOUTH: Oropharynx is normal. NECK: No adenopathy, no JVD. CHEST: Chest with diminished breath sounds bilaterally. No wheezes, rales, or rhonchi. CARDIAC: Regular rate and rhythm. S1 and S2, without murmurs, gallops, or rubs. VASCULAR: No Edema. Peripheral pulses normal and equal in all extremities. ABDOMEN: Soft, non tender and non distended. No rebound or guarding, and no masses palpated. Bowel Sounds normal. MUSCULOSKELETAL: Has a protruding hardware on the lumbar area on the back. Mild erythema good range of motion of all major joints. Extremities without clubbing, cyanosis or edema. NEUROLOGIC EXAM: Awake oriented x3 severely contracture otherwise no focal sensory or strength deficits. Speech normal. Follows commands. PSYCHIATRIC: Mood emotional says she is chronically SKIN: detail exam as documented in skin assessment - Constitutional Vitals: Temp Pulse Resp BP Pulse Ox 98 F 67 16 118/65 99 05/06/21 23:39 05/07/21 06:17 05/07/21 06:15 05/07/21 06:17 05/07/21 06:15 Plan Activity: advance as tolerated, fall precautions Diet: regular Special Instructions: record daily weights, record daily BP diary Plan of Treatment: Management per hospice team Follow up with: PRIMARY CARE, [Primary Care Provider] - 7 Days Prescriptions: Morphine ER [Ms Contin ER] 15 mg PO TID #20 tablet HYDROcodone/APAP 5-325 [[place] 5-325 mg TAB] 2 each PO Q6HR PRN #30 tablet PRN Reason: Pain QUEtiapine [SEROquel] 200 mg PO BID #60 tablet
[2021-05-07] MEDS ORDERED: cefTRIAXone/NS 2 GM/100 ML 2 GM/100 ML BAG IV SCH (10:00)
[2021-05-07] MEDS ORDERED: AMIODARONE 200 MG TAB PO SCH (10:00)
[2021-05-07] MEDS ORDERED: ENOXAPARIN 40 MG/0.4 ML INJ SUB-Q SCH (10:00)
[2021-05-07] MEDS ORDERED: AZITHROMYCIN/NS 500 MG/250 ML 500 MG/250 ML BAG IV SCH (10:00)
[2021-05-07] MEDS ORDERED: FAMOTIDINE 20 MG/2 ML INJ IV SCH (10:00)
--- NOTE | 2021-05-07 14:50 | Electrocardiograph Report ---
[facility] Test Date: 2021-05-06 Test Time: 23:57:17 Pat Name: LEX RAO Department: Room: A478 1 Gender: F Services Tech: SHANIQUA : 1960 Requested By: TRICIA HUTTON III Order Number: [id number] Reading MD: Saurav Cook Measurements Intervals [place] Rate: 80 P: 38 AK: 182 QRS: 0 QRSD: 114 T: 98 QT: 383 QTc: 442 Interpretive Statements Sinus rhythm No previous ECG available for comparison Electronically Signed On 05-07-2021 14:50:27 EDT by Saurav Cook
[2021-05-07 16:20] VITALS: BP 108/61
== END 2021-05-07 18:10 | disposition hospice, home (50) ==
LOC: ED 22:31 → 4A 05-07 01:34
PROVIDERS: ADMIT Internal Medicine Geriatric Medicine; ATTEND Internal Medicine
DX: A41.9 Sepsis, unspecified organism (principal); J96.11 Chronic respiratory failure with hypoxia; J18.9 Pneumonia, unspecified organism; R07.89 Other chest pain; I47.1 Supraventricular tachycardia; I11.0 Hypertensive heart disease with heart failure; I50.9 Heart failure, unspecified; E11.9 Type 2 diabetes mellitus without complications; K21.9 Gastro-esophageal reflux disease without esophagitis; I95.9 Hypotension, unspecified; F41.9 Anxiety disorder, unspecified; J44.9 Chronic obstructive pulmonary disease, unspecified; Z90.49 Acquired absence of other specified parts of digestive tract; Z79.899 Other long term (current) drug therapy; Z98.890 Other specified postprocedural states; Z87.891 Personal history of nicotine dependence
CPT/HCPCS: 36415; 71045; 80053; 80061; 84484; 85025; 93005; 96365; 96366; 96368; 96372; 96375; 99291; G0378; J0456; J0696; J1650; J2270; J2405; J7040